=== PATIENT | female | born 1950 | race Caucasian/White ===

== ENCOUNTER 2017-04-06 07:29 | Day surgery (SDC) | payer MEDICARE ==
[2017-04-03 11:10] VITALS: BMI 26.6
[2017-04-06 07:45] LABS: BASO % 1.7 % (0-2.0); EOS % 3.9 % (0-4.5); HEMATOCRIT 36.9 % (32.4-45.2); HEMOGLOBIN 12.4 GM/dL (10.7-15.3); LYMPH % 42.6 % (8-40); MCH 27.6 pg (25.7-33.7); MCHC 33.4 g/dl (32.0-36.0); MEAN CELL VOLUME 82.6 fl (80-96); MEAN PLT VOLUME 7.3 fl (7.5-11.1); MONO % 8.5 % (3.8-10.2); NEUT % 43.3 % (42.8-82.8); PLATELET COUNT 260 K/MM3 (134-434); RBC 4.47 M/mm3 (3.60-5.2); RDW 13.4 % (11.6-15.6); WHITE BLOOD COUNT 5.4 K/mm3 (4.0-10.0)
[2017-04-06 08:01] LABS: INR 1.01 (0.82-1.09); PROTHROMBIN TIME (PATIENT) 11.4 SEC (9.98-11.88)
[2017-04-06 08:14] VITALS: TEMP 97
[2017-04-06 13:37] VITALS: PULSE 60
[2017-04-06 13:38] VITALS: BP 118/60
--- NOTE | 2017-04-08 15:09 | PATH ---
Surgical Pathology Report Patient Name: ROSALIO DICKERSON [facility]. Rec. #: [id number] /Age/Gender: 1950 (Age: 67) / F Account: [id number] Location: Taken: 04/06/2017 Received: 04/06/2017 Reported: 04/08/2017 Physicians: Tez Russ MD Michael Tom, M.D. Specimen(s) Received LEFT NECK MASS Clinical History 67-year-old female with left supraclavicular palpable hard mass. CT and MRI showing ill-defined process of unclear etiology Final Diagnosis NECK, SUPRACLAVICULAR, LEFT, MASS, BIOPSY: ADENOCARCINOMA. SEE COMMENT. Comment: Immunohistochemical stains performed and interpreted at [facility] show the tumor is positive for cytokeratin AE1/3 and CK7, while negative for CK20 and TTF-1. Immunohistochemical stains performed at [place], [place] ([id number]) and interpreted at [facility] show the tumor is positive for ARABELLA-3 and GCDFP-15, while negative for Napsin-A and Odessa-8. Concurrent flow cytometry performed and interpreted at [place], [place] ([id number]) shows Paucicellular limited study. The low number of cells in the sample precludes full marker panel, which limit the interpretation. See Emerge report for details. It is noted that the patient has breast mass seen in recent mammography. Overall, the immunophenotype favors breast origin. Suggest clinical/radiologic correlation. Findings discussed with Dr. Zamora. Electronically Signed Page Caputo M.D. Addendum Reported: 05/01/2017 Addendum Diagnosis Results of Estrogen Receptor (ER) and Progesterone Receptor (AZ) studies performed on block "1" at [facility] at the request of Dr. Meza are as follows: ER (clone 6F11 mouse monoclonal antibody by Leica): Few cells are positive with weak to moderate nuclear staining (Positive). AZ (clone16 mouse monoclonal antibody by Leica): No nuclear staining (Negative). Comment: Her2 (IHC) immunohistochemical stain is not performed due to insufficient lesional material on deeper levels. Page Caputo M.D. Gross Description Received in formalin labeled "left neck mass," are 2 austin, cylindrical portions of soft tissue measuring 0.4 and 1.1 cm in length and averaging 0.1 cm in diameter. The specimens are submitted in toto in one cassette. 04/06/201704/06/2017
== END 2017-04-06 13:41 | disposition home or self-care (01) ==
LOC: JRADIR 07:29
PROVIDERS: ATTEND Otolaryngology
PROC: 0JB53ZX Excision of Left Neck Subcutaneous Tissue and Fascia, Percutaneous Approach, Diagnostic (ICD-10-PCS; principal; 2017-04-06)
DX: C49.0 Malignant neoplasm of connective and soft tissue of head, face and neck (principal)
CPT/HCPCS: 36415; 71010-TC; 76942-TC; 85025; 85610; 88305-TC; 88341-TC; 88342-TC

== ENCOUNTER → 2017-04-16 | Day surgery (SDC) | payer MEDICARE ==
--- NOTE | 2017-04-21 15:22 | PATH ---
Surgical Pathology Report Patient Name: ROSALIO DICKERSON [facility]. Rec. #: [id number] /Age/Gender: 1950 (Age: 67) / F Account: [id number] Location: [facility] Taken: 04/16/2017 Received: 04/16/2017 Reported: 04/21/2017 Physicians: Tez Hanley MD Michael Tom, M.D. Specimen(s) Received A: LEFT BREAST SPECIMEN - SITE 1 - ANTERIOR WITH CALCIFICATIONS B: LEFT BREAST SPECIMEN - SITE 1 - ANTERIOR WITHOUT CALCIFICATIONS C: LEFT BREAST SPECIMEN - SITE 2 - POSTERIOR WITH CALCIFICATIONS D: LEFT BREAST SPECIMEN - SITE 2 - POSTERIOR WITHOUT CALCIFICATIONS Clinical History Nonpalpable lesion Mammographic findings: Microcalcification, suspicious 2 sites= Site 1- anterior; site 2-posterior Final Diagnosis A. LEFT BREAST, SITE 1 ANTERIOR WITH CALCIFICATION, STEREOTACTIC NEEDLE CORE BIOPSY: FOCAL DUCTAL CARCINOMA IN SITU (DCIS), INTERMEDIATE NUCLEAR GRADE, SOLID PATTERN. MICROCALCIFICATIONS ARE IDENTIFIED. Results of Estrogen Receptor (ER) and Progesterone Receptor (MD) studies performed at [facility] are as follows: ER (clone 6F11 mouse monoclonal antibody by Leica): 100% nuclear staining with strong intensity (Positive). MD (clone16 mouse monoclonal antibody by Leica): 0% nuclear staining (Negative). B. LEFT BREAST, SITE 1 ANTERIOR WITHOUT CALCIFICATION, STEREOTACTIC NEEDLE CORE BIOPSY: BENIGN BREAST TISSUE WITH FOCAL HYALINIZED STROMAL NODULE. NO CARCINOMA IDENTIFIED. C. LEFT BREAST, SITE 2 POSTERIOR WITH CALCIFICATION, STEREOTACTIC NEEDLE CORE BIOPSY: DUCTAL CARCINOMA IN SITU (DCIS), INTERMEDIATE NUCLEAR GRADE, SOLID PATTERN WITH CENTRAL NECROSIS AND ASSOCIATED CALCIFICATION. Results of Estrogen Receptor (ER) and Progesterone Receptor (MD) studies performed at [facility] are as follows: ER (clone 6F11 mouse monoclonal antibody by Leica): 100% nuclear staining with strong intensity (Positive). MD (clone16 mouse monoclonal antibody by Leica): 0% nuclear staining (Negative). D. LEFT BREAST, SITE 2 POSTERIOR WITHOUT CALCIFICATION, STEREOTACTIC NEEDLE CORE BIOPSY: DUCTAL CARCINOMA IN SITU (DCIS), INTERMEDIATE NUCLEAR GRADE, SOLID PATTERN WITH CENTRAL NECROSIS AND ASSOCIATED CALCIFICATION. FOCAL FOREIGN BODY REACTION PRESENT. Comment: Immunohistochemical stains for p63 and smooth muscle minus heavy chain on Specimen C show preservation of the myoepithelial cell layer, consistent with ductal carcinoma in situ. Also see prior specimen [id number]. Positive and negative controls (internal if applicable) showed appropriate results. Formalin fixation and cold ischemic times are within current ASCO/CAP recommendations for ER, MD and Her2 testing. Electronically Signed Lupillo Dorman M.D. Gross Description A. Received in formalin labeled "site 1 anterior left breast with calcifications," is a 2.4 x 2.0 x 0.3 cm aggregate of austin-yellow, irregular to cylindrical portions of fibroadipose tissue. The formalin is filtered and the specimen is entirely submitted in one cassette. B. Received in formalin labeled "site 1 anterior left breast without calcifications," is a 1.7 x 1.5 x 0.3 cm aggregate of austin-yellow, irregular to cylindrical portions of fibroadipose tissue. The formalin is filtered and the specimen is entirely submitted in one cassette. C. Received in formalin labeled "site 2 posterior left breast with calcifications," is a 2.5 x 2.3 x 0.3 cm aggregate of multiple austin-yellow, irregular to cylindrical portions of fibroadipose tissue. The formalin is filtered and the specimen is entirely submitted in one cassette. D. Received in formalin labeled "site 2 posterior left breast without calcifications," is a 1.8 x 1.5 x 0.3 cm aggregate of multiple austin-yellow, irregular to cylindrical portions of fibroadipose tissue. The formalin is filtered and the specimen is entirely submitted in one cassette. Time to formalin fixation: 5 minutes Total formalin fixation time: Approximately 30 hours. 04/17/2017 saudi04/17/2017
== END | disposition home or self-care (01) ==
LOC: FMAMMOTONE 11:15
PROVIDERS: ATTEND Internal Medicine
PROC: 0HBU3ZX Excision of Left Breast, Percutaneous Approach, Diagnostic (ICD-10-PCS; principal; 2017-04-16)
DX: D05.12 Intraductal carcinoma in situ of left breast (principal); R92.1 Mammographic calcification found on diagnostic imaging of breast; N64.1 Fat necrosis of breast; N64.9 Disorder of breast, unspecified
CPT/HCPCS: 19081; 19082; 87899; 88305-TC; 88341-TC; 88342-TC; A4648

== ENCOUNTER 2017-05-14 10:27 | Day surgery (SDC) | payer MEDICARE ==
[2017-05-13 15:58] VITALS: BMI 23.1
--- NOTE | 2017-05-13 16:25 | HP ---
Admitting History and Physical - Primary Care Physician PCP: Vincent Meza - Admission Chief Complaint: Left breast DCIS and metastatic disease History of Present Illness: 67 year old with strong family H/O breast and pancreatic cancer. The patient came from [place] and had some tightness in her left axillary region and was found to have a left suprclavicular mass and underwent a core biopsy showing adeno carcinoma favoring breast origin. mammogram showed suspicious calcifications lower aspect of left breast and stereotactic core bx showed DCIS. ER= [place]-. CT scan of chest and neck showed suspicious adenopathy from the suprclavicular region to axilla. Pet CT scan showed metastatic dz and MRI braxhial plexus was ordered also showing ed dz in clavical area and swelling. She needs chemotherapy and will have supraclavicular node biopsied. History Source: Patient Limitations to Obtaining History: No Limitations - Past Medical History Cardiovascular: Yes: HTN Gastrointestinal: Yes: GERD Psych: Yes: Anxiety - Past Surgical History Past Surgical History: Yes: Hysterectomy (benign dz at 47) Additional Past Surgical History: Left breast suprclavicular lymph node adenocarcinoma - Smoking History Smoking history: Never smoked - Alcohol/Substance Use Hx Alcohol Use: No Home Medications - Allergies Allergies/Adverse Reactions: Allergies Allergy/AdvReac Type Severity Reaction Status Date / Time No Known Drug Allergies Allergy Verified 05/13/17 15:58 - Home Medications Home Medications: Ambulatory Orders Lisinopril [Prinivil] 10 mg PO DAILY 04/03/17 Omeprazole 40 mg PO DAILY 04/03/17 Metoprolol Succinate [Toprol Xl -] 25 mg PO DAILY 04/06/17 Family Disease History - Family Disease History Family Disease History: CA: Brother (CRC 65), Sister (pancreatic ca 64) Other Family History: neice breast ca 38 Physical Examination Constitutional: Yes: Well Nourished Breast(s): Yes: Other (D cup breasts ptotic bruising over left breast bx areas with typical scarring no palpable masses right breast negative firm hard left axillary nodes felt high up and firm left supraclavicular nodes right axilla and supraclavicular nodes negative.) Problem List - Problems (1) Breast cancer, left breast Code(s): C50.912 - MALIGNANT NEOPLASM OF UNSPECIFIED SITE OF LEFT FEMALE BREAST Qualifiers: Breast location: lower inner quadrant of breast Patient sex: female Assessment/Plan Life port insertion for chemotherapy
[2017-05-14] MEDS ORDERED: PROPOFOL 20 ML ONE ×2 (10:42→14:26)
[2017-05-14] MEDS ORDERED: MIDAZOLAM HCL 2 MG/2 ML SINGLE DOSE VIAL ONE ×2 (10:42→14:26)
[2017-05-14] MEDS ORDERED: PROMETHAZINE HCL 25 MG/1 ML VIAL IVPB PRN (14:09)
[2017-05-14] MEDS ORDERED: ONDANSETRON 4 MG/2 ML VIAL IVPUSH PRN ×2 (14:09→16:05)
[2017-05-14] MEDS ORDERED: LACTATED RINGERS SOLUTION 1,000 ML IV SCH (14:15)
[2017-05-14] MEDS ORDERED: LIDOCAINE HCL 1%, 10 MG/ML (20ML VIAL) ONE (14:22)
[2017-05-14] MEDS ORDERED: ceFAZolin SODIUM 1 GM VIAL ONE (14:27)
[2017-05-14] MEDS ORDERED: SODIUM CHLORIDE 0.9% P/F 10 ML VIAL IJ ONE (14:27)
[2017-05-14] MEDS ORDERED: LIDOCAINE HCL/PF 2% SDV 5ML VIAL ONE (14:50)
[2017-05-14] MEDS ORDERED: LIDOCAINE HCL 1%, 10 MG/ML (20ML VIAL) INF ONE (15:02)
[2017-05-14] MEDS ORDERED: KETOROLAC TROMETHAMINE 30 MG/1 ML VIAL IVPUSH PRN (16:05)
[2017-05-14] MEDS ORDERED: DEXTROSE 5%-0.45% SALINE 1,000 ML IV SCH (16:15)
[2017-05-14 17:37] VITALS: TEMP 98.2
[2017-05-14 18:44] VITALS: BP 116/64; PULSE 75
--- NOTE | 2017-05-14 23:01 | OP ---
DATE OF OPERATION: 05/14/2017 PREOPERATIVE DIAGNOSIS: Metastatic breast cancer. POSTOPERATIVE DIAGNOSIS: Metastatic breast cancer. PROCEDURE: Right single lumen Port-A-Cath placement using the Seldinger technique with fluoroscopy. ANESTHESIA: Local with IV sedation. SURGEON: Tor Meza M.D. PALS SPECIALIST: Quoc Machuca COMPLICATIONS: There were no complications. Briefly, the patient is a 67-year-old G4, P4 postmenopausal female of Citizen [place] descent. She presented with some left axillary tightness, decreased range of motion of her left arm. She was found to have a positive supraclavicular node which was biopsied showing adenocarcinoma. Workup showed significant adenopathy in supraclavicular region, some calcifications in the left breast, and she had those biopsied showing DCIS. There were no significant breast findings however, and breast MRI did not show any significant cancer in the left breast. She underwent a PET CT scan showing metastatic cancer in multiple bony segments. On further workup of the tumor, it was felt to be a breast cancer with an occult primary with significant metastatic disease. She was seen by the medical oncologist and chemotherapy was recommended. She was brought in for Port-A-Cath placement. The patient was brought in on May 14, 2017 for Port-A-Cath placement and in the holding area site verification was made, informed consent was obtained. She was brought into the operating room, laid on the OR table in a supine position. The right arm was tucked in her side with a rolled sheath placed under her midline spine. The upper right chest wall and neck were sterilely prepped and draped in usual fashion. She was given IV sedation. 1% lidocaine was given directly underneath the right clavicle and the right subclavian vein was cannulated under ultrasound guidance without difficulty. We did use the microwire to obtain access into the subclavian vein, and this was dilated with the placed into the superior vena cava under fluoroscopy. This was clipped to the drape. The infraclavicular pocket was then fashioned after giving more 1% lidocaine in the upper right chest wall, making a 3-cm incision and forming the infraclavicular pocket using electrocautery for hemostasis. The Port-A-Cath catheter was cut the appropriate length and attached to the chamber, which was placed in infraclavicular pocket and secured in place using 2 separate 2-0 Prolene sutures. At this point the dilator was placed over the wire with the tearaway introducer under fluoroscopy without difficulty. The wire was removed, and the catheter was placed down to the tearaway sheath, and the tearaway sheath was torn away leaving the catheter in good position in the superior vena cava. There was excellent blood return from the Port-A-Cath chamber, and it was flushed with heparin. The wound was then closed using interrupted 3-0 deep dermal Vicryl suture and a running 4-0 subcuticular Biosyn suture. Mastisol and Steri-Strips were applied over the wound. Using the Bassett needle, the Port-A-Cath chamber was accessed with good blood return, and about 1.5 mL of concentrated heparin at 1000 units per mL was instilled into the Port-A-Cath chamber. The patient was awake and alert at the end of the procedure, brought back to the postanesthesia care unit in stable condition. We will have a chest x-ray performed at the end of the case and if the line is in good position with no pneumo or hemothorax she will be discharged home the same day and the catheter may be used as soon as needed. All sponge and needle counts were correct at the end of the case, and estimated blood loss was minimal. TOR MEZA M.D. [id number]
== END 2017-05-14 18:00 | disposition home or self-care (01) ==
LOC: JASU-SURG 10:27 → MERGE 12:00 → JASU-SURG 18:00
PROVIDERS: ATTEND Surgery Surgical Oncology
PROC: 02HV33Z Insertion of Infusion Device into Superior Vena Cava, Percutaneous Approach (ICD-10-PCS; 2017-05-14)
PROC: B548ZZA Ultrasonography of Superior Vena Cava, Guidance (ICD-10-PCS; 2017-05-14)
PROC: 0JH63XZ Insertion of Tunneled Vascular Access Device into Chest Subcutaneous Tissue and Fascia, Percutaneous Approach (ICD-10-PCS; principal; 2017-05-14 12:00)
DX: C50.919 Malignant neoplasm of unspecified site of unspecified female breast (principal); C77.9 Secondary and unspecified malignant neoplasm of lymph node, unspecified; C79.51 Secondary malignant neoplasm of bone
CPT/HCPCS: 36561; 77001; C1751; 71045-TC; 76000-TC; 94760; J1644

== ENCOUNTER 2017-05-19 09:39 | Day surgery (SDC) | payer MEDICARE ==
[2017-05-18 09:14] VITALS: BMI 23.1
[2017-05-19 10:05] LABS: BASO % 1.3 % (0-2.0); EOS % 3.5 % (0-4.5); HEMOGLOBIN 12.7 GM/dL (10.7-15.3); MCH 27.1 pg (25.7-33.7); MCHC 32.6 g/dl (32.0-36.0); MEAN CELL VOLUME 83.2 fl (80-96); MEAN PLT VOLUME 7.6 fl (7.5-11.1); MONO % 7.3 % (3.8-10.2); NEUT % 54.9 % (42.8-82.8); PLATELET COUNT 253 K/MM3 (134-434); RBC 4.68 M/mm3 (3.60-5.2); RDW 13.1 % (11.6-15.6); WHITE BLOOD COUNT 7.3 K/mm3 (4.0-10.0)
[2017-05-19 10:13] VITALS: TEMP 97.7
[2017-05-19 10:15] LABS: PROTHROMBIN TIME (PATIENT) 11.3 SEC (9.98-11.88)
[2017-05-19] MEDS ORDERED: oxyCODONE HCL 5 MG TABLET ONE (13:14)
[2017-05-19] MEDS ORDERED: ACETAMINOPHEN 325 MG TABLET (FP) ONE (13:14)
[2017-05-19] MEDS ORDERED: oxyCODONE HCL 5 MG TABLET PO ONE (13:15)
[2017-05-19] MEDS ORDERED: ACETAMINOPHEN 325 MG TABLET (FP) PO ONE (13:15)
[2017-05-19 14:41] VITALS: BP 130/70; PULSE 70
--- NOTE | 2017-05-20 12:39 | PATH ---
Surgical Pathology Report Patient Name: ROSALIO FERNANDEZ [facility]. Rec. #: [id number] /Age/Gender: 1950 (Age: 67) / F Account: [id number] Location: Taken: 05/19/2017 Received: 05/19/2017 Reported: 05/20/2017 Physicians: Shahzad Taveras M.D. Shay Galvan M.D. Specimen(s) Received LEFT SUPRACLAVICULAR Clinical History 67 year old female with metastatic breast cancer Final Diagnosis SUPRACLAVICULAR, LEFT, MASS, EXCISION: INVASIVE ADENOCARCINOMA, WELL TO MODERATELY DIFFERENTIATED. SEE COMMENT. Comment: Her2/Catrachito studies pending and will be reported as an addendum. Carcinoma is morphologically similar to prior material ([id number]). Electronically Signed Page Caputo M.D. Addendum Reported: 05/21/2017 Addendum Diagnosis Results of Her2 (IHC) study performed on block "1 " at [place], [place] ([id number]) are as follows: Her2 IHC (EP3 from [employer], formerly known as [id number], using Liu Polymer Refine detection kit): 0 (Negative). Positive and negative controls (internal if applicable) show appropriate results. Formalin fixation and cold ischemic times are within current ASCO/CAP recommendations for ER, [place] and Her2 testing. Page Caputo M.D. Gross Description Received in formalin labeled "left," and indicated on the requisition to be from the left supraclavicular region, are 3 austin-yellow, cylindrical portions of fibroadipose tissue ranging from 1.0-1.7 cm in length and averaging 0.1 cm in diameter. The specimens are submitted in toto in one cassette. Total formalin fixation time: Between 6-10 hours 05/19/201705/19/2017
== END 2017-05-19 14:30 | disposition home or self-care (01) ==
LOC: JRADIR 09:39
PROVIDERS: ATTEND Internal Medicine Hematology & Oncology
PROC: 07D23ZX Extraction of Left Neck Lymphatic, Percutaneous Approach, Diagnostic (ICD-10-PCS; principal; 2017-05-19)
DX: C79.89 Secondary malignant neoplasm of other specified sites (principal); C50.919 Malignant neoplasm of unspecified site of unspecified female breast
CPT/HCPCS: 36415; 38505; 76942-TC; 85025; 85610; 88305-TC

== ENCOUNTER 2017-05-20 07:18 | Day surgery (SDC) | payer MEDICARE ==
[2017-05-20] MEDS ORDERED: DEXAMETHASONE INJECTION 20 MG, RANITIDINE INJECTION 50 MG, DIPHENHYDRAMINE 50 MG in SOD... IVPB ONE (08:00)
[2017-05-20] MEDS ORDERED: PALONOSETRON HCL 0.25 MG/5 ML VIAL IVPUSH ONE (08:00)
[2017-05-20] MEDS ORDERED: PACLITAXEL 138 MG in SODIUM CHLORIDE 250 ML IVPB ONE (08:30)
[2017-05-20 10:14] LABS: BASO % 0.3 % (0-2.0); LYMPH % 9.9 % (8-40); MCH 27.7 pg (25.7-33.7); MCHC 33.5 g/dl (32.0-36.0); MEAN CELL VOLUME 82.8 fl (80-96); MEAN PLT VOLUME 7.7 fl (7.5-11.1); NEUT % 88.8 % (42.8-82.8); PLATELET COUNT 262 K/MM3 (134-434); RBC 4.71 M/mm3 (3.60-5.2)
[2017-05-20 11:34] LABS: ALBUMIN 4.2 g/dl (3.4-5.0); ANION GAP 11 (8-16); BILIRUBIN,DIRECT 0.2 mg/dL (0.0-0.2); BILIRUBIN,TOTAL 0.7 mg/dL (0.2-1.0); BLOOD UREA NITROGEN 14 mg/dL (7-18); CALCIUM 9.8 mg/dL (8.5-10.1); CHLORIDE 100 mmol/L (98-107); CO2 26 mmol/L (21-32); GLUCOSE,RANDOM 122 mg/dL (74-106); SGOT/AST 15 U/L (15-37); SGPT/ALT 24 U/L (12-78); SODIUM 137 mmol/L (136-145); TOT PROT 8.2 g/dl (6.4-8.2)
[2017-05-20 11:35] LABS: ALK PHOS 136 U/L (45-117)
[2017-05-20] MEDS ORDERED: PORTA CATH FLUSH 10 ML IVPUSH ONE (13:22)
[2017-05-20 13:23] VITALS: TEMP 98.3
[2017-05-20 17:59] VITALS: BP 113/64; PULSE 81
== END 2017-05-20 14:10 | disposition home or self-care (01) ==
LOC: JONCCHEMO 07:18 → J7W 11:14 → JONCCHEMO 14:10
PROVIDERS: ATTEND Internal Medicine Hematology & Oncology
DX: Z51.11 Encounter for antineoplastic chemotherapy (principal); C50.919 Malignant neoplasm of unspecified site of unspecified female breast; C77.9 Secondary and unspecified malignant neoplasm of lymph node, unspecified; C79.51 Secondary malignant neoplasm of bone
CPT/HCPCS: 36415; 80053; 80076; 82378; 83735; 85025; 86300; 96367; 96375; 96413; J1100; J2469

== ENCOUNTER 2017-05-27 07:19 | Day surgery (SDC) | payer MEDICARE ==
[2017-05-27] MEDS ORDERED: PALONOSETRON HCL 0.25 MG/5 ML VIAL IVPUSH ONE (08:00)
[2017-05-27] MEDS ORDERED: DEXAMETHASONE INJECTION 20 MG, DIPHENHYDRAMINE 50 MG, RANITIDINE INJECTION 50 MG in SOD... IVPB ONE (08:00)
[2017-05-27] MEDS ORDERED: PACLITAXEL 138 MG in SODIUM CHLORIDE 250 ML IVPB ONE (08:30)
[2017-05-27 09:27] LABS: BASO % 0.6 % (0-2.0); EOS % 0.2 % (0-4.5); HEMATOCRIT 36.5 % (32.4-45.2); HEMOGLOBIN 12.3 GM/dL (10.7-15.3); MCH 27.8 pg (25.7-33.7); MCHC 33.6 g/dl (32.0-36.0); MEAN CELL VOLUME 82.9 fl (80-96); MEAN PLT VOLUME 7.8 fl (7.5-11.1); MONO % 0.8 % (3.8-10.2); NEUT % 78.4 % (42.8-82.8); PLATELET COUNT 265 K/MM3 (134-434); RDW 12.9 % (11.6-15.6); WHITE BLOOD COUNT 3.8 K/mm3 (4.0-10.0)
[2017-05-27 09:43] LABS: CHLORIDE 99 mmol/L (98-107); POTASSIUM 4.6 mmol/L (3.5-5.1); SODIUM 134 mmol/L (136-145)
[2017-05-27 09:51] LABS: ALBUMIN 4.1 g/dl (3.4-5.0); ALK PHOS 142 U/L (45-117); ANION GAP 9 (8-16); BILIRUBIN,DIRECT < 0.2 mg/dL (0.0-0.2); BILIRUBIN,TOTAL 0.7 mg/dL (0.2-1.0); BLOOD UREA NITROGEN 19 mg/dL (7-18); CO2 26 mmol/L (21-32); CREATININE 0.9 mg/dL (0.55-1.02); GLUCOSE,RANDOM 209 mg/dL (74-106); SGOT/AST 14 U/L (15-37); SGPT/ALT 33 U/L (12-78); TOT PROT 7.5 g/dl (6.4-8.2)
[2017-05-27 12:01] VITALS: TEMP 97.6
[2017-05-27 12:25] VITALS: BP 123/69
[2017-05-27] MEDS ORDERED: PORTA CATH FLUSH 10 ML IVPUSH ONE (12:29)
[2017-05-27 12:39] VITALS: PULSE 74
== END 2017-05-27 11:50 | disposition home or self-care (01) ==
LOC: JONCCHEMO 07:19 → J7W 09:30 → JONCCHEMO 11:50
PROVIDERS: ATTEND Internal Medicine Hematology & Oncology
DX: Z51.11 Encounter for antineoplastic chemotherapy (principal); C50.919 Malignant neoplasm of unspecified site of unspecified female breast; C77.9 Secondary and unspecified malignant neoplasm of lymph node, unspecified; C79.51 Secondary malignant neoplasm of bone
CPT/HCPCS: 36415; 80053; 80076; 82378; 85025; 96367; 96375; 96413; J1100; J2469

== ENCOUNTER 2017-05-30 09:05 | Emergency (ER) | payer MEDICARE ==
[2017-05-30 09:14] VITALS: BMI 24.9
--- NOTE | 2017-05-30 09:21 | PDOC ---
History of Present Illness - General Chief Complaint: Respiratory Stated Complaint: FEVER Time Seen by Provider: 05/30/17 09:17 - History of Present Illness Initial Comments: 05/30/17 09:39 67 y.o. female with a PMH of L sided Breast CA (2nd chemotherapy treatment on ) with supraclavicular metasasis presents to our ED today c/o 2 day h/o fever (T max 103 2 days previous) and a fever of 100.6 today. Patient has been taking Motrin for her fevers. Patient notes daughter @ home has a cough without fever. Patient additional c/o of L sided clavicular pain with L arm parathesia and L chest wall numbness following supraclavicular lymph node biopsy 2 weeks previous. Patient denies any associated nausea/vomiting, constipation/diarrhea, dyuria/ hematuria. NKDA Surgical: L supraclavicular node biopsy Social: denies nicotine, denies alcohol, denies recreational drugs Medications: Lisinopril, Metoprolol, Alaprolazam, Gabapentin, Dexamethasone Past History - Past Medical History Allergies/Adverse Reactions: Allergies Allergy/AdvReac Type Severity Reaction Status Date / Time No Known Drug Allergies Allergy Verified 05/30/17 09:10 Home Medications: Ambulatory Orders Alprazolam [Xanax] 1 mg PO TID 05/30/17 Dexamethasone 4 mg PO ASDIR 05/30/17 Gabapentin 100 mg PO TID 05/30/17 Lisinopril/Hydrochlorothiazide [Lisinopril-Hctz 10-12.5 mg Tab] 1 each PO DAILY 05/30/17 Metoprolol Succinate [Toprol Xl] 25 mg PO DAILY 05/30/17 Oseltamivir Phosphate [Tamiflu -] 75 mg PO BID #10 capsule 05/30/17 Tramadol HCl 50 mg PO Q6H 05/30/17 Anemia: No Asthma: No Cancer: Yes (breast cancer left 2 weeks ago) Cardiac Disorders: No CVA: No COPD: No CHF: No Dementia: No Diabetes: No GI Disorders: No Disorders: No HTN: Yes Hypercholesterolemia: No Liver Disease: No Seizures: No Thyroid Disease: No Other medical history: on chemo for breast ca - Surgical History Abdominal Surgery: Yes Appendectomy: No Cardiac Surgery: No Cholecystectomy: No Lung Surgery: No Neurologic Surgery: No Orthopedic Surgery: No - Suicide/Smoking/Psychosocial Hx Smoking History: Never smoked Hx Alcohol Use: No Drug/Substance Use Hx: No Substance Use Type: None Hx Substance Use Treatment: No Review of Systems - Review of Systems Constitutional: Yes: Chills, Fever HEENTM: No: Recent change in vision Respiratory: No: Cough, Shortness of Breath Cardiac (ROS): No: Chest Pain ABD/GI: Yes: Constipated. No: Diarrhea, Nausea, Vomiting *Physical Exam - Vital Signs Last Vital Signs Temp Pulse Resp BP Pulse Ox 98.5 F 69 18 125/71 99 05/30/17 09:06 05/30/17 09:06 05/30/17 09:06 05/30/17 09:06 05/30/17 09:06 - Physical Exam General Appearance: Yes: Nourished, Appropriately Dressed HEENT: positive: EOMI, HAZEL. negative: TM Bulging, TM Dull, TM Erythema Neck: positive: Trachea midline, Supple Respiratory/Chest: positive: Lungs Clear Cardiovascular: positive: S1, S2. negative: Edema, JVD Gastrointestinal/Abdominal: positive: Normal Bowel Sounds, Soft. negative: Guarding, Rebound, Tenderness, Hernia, Mass ED Treatment Course - LABORATORY CBC & Chemistry Diagram: 05/30/17 09:30 05/30/17 09:30 Medical Decision Making - Medical Decision Making 05/30/17 12:43 Patient is a 67 y.o female with a PMH of Breast CA (currently on chemotherapy) w /supraclavicular mets who presents to our ED c/o fever. Initial DDx for neutropenic fever, Influenza vs. Will draw blood cultures, CXR, CBC/CMP, UA/ UC as well as LUE U/S as patient c/o parthesias, h/o recent surgical intervention. 05/30/17 12:51 CBC negative for leukocytosis, ANC 3.2 K --> suspect viral etiology for fever. CXR negative for new infiltrate/consolidation. Influenza Swab not available, given patient's immunocompromised status, will prophylatically treat for Influenza. Case d/w Dr. Rodriguez (ID) agrees with treatment plan. Oncology @ bedside agrees patient stable for discharge home. 05/30/17 14:04 U/S LUE negative for clot. Patient remains afebrile. Patient and patient's family @ bedside cousneled extensively on post discharge care, return precautions and improtance of PMD follow-up *DC/Admit/Observation/Transfer Diagnosis at time of Disposition: Fever - Discharge Dispostion Disposition: HOME Condition at time of disposition: Good Admit: No - Prescriptions Prescriptions: Oseltamivir Phosphate [Tamiflu -] 75 mg PO BID #10 capsule - Referrals Referrals: Brayden Griffith MD [Primary Care Provider] - - Patient Instructions Printed Discharge Instructions: DI for Fever (Symptom) -- Adult Additional Instructions: You were evaluated today for a fever. All of your labs as well as your chest X- ray showed no concerning findings for an active infection. Infectious disease and oncology consults agree that you are safe to discharge home with close monitoring and return to the Emergency Department for any new/concerning/ worsening symptoms - Post Discharge Activity
--- NOTE | 2017-05-30 09:21 | PDOC ---
Attending Attestation - HPI HPI: 05/30/17 09:51 The patient is a 67 year old female with a significant past medical history of Left Breast CA (last chemo on 05/27/17) and HTN who presents to the ED with 2 weeks of clavicular pain and 2 days of fever. The patient reports left sided clavicular pain since she got her left supraclavicular node biopsied 2 weeks ago. Patient states her clavicular pain feel like pins and needles and radiates down her left arm and her left sided chest wall. She also reports left chest numbness, redness, and swelling associated with her clavicular pain. Patient notes she developed a fever 2 days ago. She states her last recorded fever was at 6 am this morning at 100.6 F and she took motrin with slight relief. Denies cough or shortness of breath. Denies dysuria or change in urinary output. Denies abdominal pain, nausea, vomiting, or diarrhea. Denies any other symptoms. Social hx: Denies smoking or alcohol consumption. Documentation prepared by Brittany Trent, acting as medical billing supervisor for Trisha Hidalgo MD <Brittany Trent - Last Filed: 05/30/17 09:51> - Resident Resident Name: Shalini Vargas - [facility] HPI: I, Dr. Trisha Hidalgo, attest that the scribes documentation that appears above has been prepared under my direction and personally reviewed by me. I confirmed that the note above accurately reflects all work, treatment, procedures, and medical decision-making performed by me. 05/30/17 10:13 05/30/17 10:14 - Physicial Exam PE: 05/30/17 09:55 VS: 98.5 69 18 b/p 125/77 N/C AT Nati Neck: supple no lymph nodes palpated Lung: + bs dolly cta Heart: s1S2 regular Abd: +Bs Abd soft non tender no guarding or tenderness Ext: no edema of extremities, pt with limited rom of left arm and shoulder Skin: slight swelling noted to Left chest wall no erythema noted neuro: alert and oriened x3, nl gait - Medical Decision Making 05/30/17 10:04 67 y/o female with h/o breast cancer recently started chemo, referred to ED by oncologist for probale admssion due to recent fever after receiving chemo two days ago. Pt is non toxic appearing not in distress at present Plan: CBC,CMP, Lactic acid, cxr, blood cx, cx from port, ua urine cx,and reevaluate 05/30/17 10:13 <Trisha Hidalgo - Last Filed: 05/30/17 10:15>
[2017-05-30] MEDS ORDERED: VANCOMYCIN 1,000 MG in DEXTROSE 5%-WATER - 250 ML IVPB ONE (09:43)
[2017-05-30] MEDS ORDERED: CEFEPIME HCL 1 GM VIAL (RESTRICTED TO ID) IVPB ONE (09:44)
[2017-05-30 09:46] LABS: BASO % 0.5 % (0-2.0); EOS % 0.9 % (0-4.5); HEMATOCRIT 36.1 % (32.4-45.2); HEMOGLOBIN 12.4 GM/dL (10.7-15.3); LYMPH % 16.7 % (8-40); MCHC 34.3 g/dl (32.0-36.0); MEAN CELL VOLUME 81.6 fl (80-96); MONO % 1.7 % (3.8-10.2); NEUT % 80.2 % (42.8-82.8); PLATELET COUNT 243 K/MM3 (134-434); RBC 4.42 M/mm3 (3.60-5.2); RDW 12.7 % (11.6-15.6)
[2017-05-30] MEDS ORDERED: VANCOMYCIN 1 GRAM (PRE-DOCKED) 1,000 MG/250 ML BAG IVPB ONE (09:59)
[2017-05-30] MEDS ORDERED: CEFEPIME 1 GM/100 ML BAG IVPB ONE (10:00)
[2017-05-30 10:18] LABS: ALBUMIN 4.2 g/dl (3.4-5.0); ANION GAP 7 (8-16); BILIRUBIN,TOTAL 1.8 mg/dL (0.2-1.0); BLOOD UREA NITROGEN 16 mg/dL (7-18); CALCIUM 9.3 mg/dL (8.5-10.1); CHLORIDE 94 mmol/L (98-107); CO2 30 mmol/L (21-32); GLUCOSE,RANDOM 111 mg/dL (74-106); POTASSIUM 4.8 mmol/L (3.5-5.1); SGOT/AST 27 U/L (15-37); SGPT/ALT 49 U/L (12-78); SODIUM 131 mmol/L (136-145); TOT PROT 7.5 g/dl (6.4-8.2)
[2017-05-30 10:19] LABS: ALK PHOS 151 U/L (45-117)
[2017-05-30 10:24] LABS: INR 0.98 (0.82-1.09); PROTHROMBIN TIME (PATIENT) 11.1 SEC (9.98-11.88)
[2017-05-30 10:26] LABS: ACTIVATED PTT 34.4 SECONDS (26.9-34.4)
[2017-05-30] MEDS ORDERED: OSELTAMIVIR PHOSPHATE 75 MG CAPSULE PO ONE (12:05)
[2017-05-30] MEDS ORDERED: OSELTAMIVIR PHOSPHATE 75 MG CAPSULE ONE (12:12)
[2017-05-30 13:20] VITALS: BP 111/55; PULSE 87
[2017-05-30 13:52] VITALS: TEMP 99.3
--- NOTE | 2017-05-30 16:06 | EKG ---
Test Reason : Blood Pressure : / mmHG Vent. Rate : 075 BPM Atrial Rate : 075 BPM P-R Int : 114 ms QRS Dur : 082 ms QT Int : 372 ms P-R-T Axes : 048 008 028 degrees QTc Int : 415 ms NORMAL SINUS RHYTHM NORMAL ECG NO PREVIOUS ECGS AVAILABLE Confirmed by MARTELL SALAZAR MD ([id number]) on 05/30/2017 4:05:21 PM Referred By: Confirmed By:MARTELL SALAZAR MD
--- NOTE | 2017-05-30 18:59 | CONSULT ---
Consult Consult Specialty:: Oncology Referred by:: ER Reason for Consultation:: Fever at home, recent chemotherapy. - History of Present Illness Chief Complaint: Fever History of Present Illness: Patient known to Oncology, recently started chemotherapy for metastatic breast cancer, experienced chills and found to have fever of 100.6 at home. Presented to ER for evalutaion. Presently without complaints. Reports some weakness since starting chemotherapy, but no acute symptomatology. - History Source History Provided By: Patient, Family Member Limitations to Obtaining History: No Limitations - Past Medical History Cardio/Vascular: Yes: HTN Gastrointestinal: Yes: GERD Psych: Yes: Anxiety - Past Surgical History Past Surgical History: Yes: Hysterectomy - Alcohol/Substance Use Hx Alcohol Use: No - Smoking History Smoking history: Never smoked Home Medications - Allergies Allergies/Adverse Reactions: Allergies Allergy/AdvReac Type Severity Reaction Status Date / Time No Known Drug Allergies Allergy Verified 05/30/17 09:10 - Home Medications Home Medications: Ambulatory Orders Alprazolam [Xanax] 1 mg PO TID 05/30/17 Dexamethasone 4 mg PO ASDIR 05/30/17 Gabapentin 100 mg PO TID 05/30/17 Lisinopril/Hydrochlorothiazide [Lisinopril-Hctz 10-12.5 mg Tab] 1 each PO DAILY 05/30/17 Metoprolol Succinate [Toprol Xl] 25 mg PO DAILY 05/30/17 Oseltamivir Phosphate [Tamiflu -] 75 mg PO BID #10 capsule 05/30/17 Tramadol HCl 50 mg PO Q6H 05/30/17 Family Disease History - Family Disease History Family Disease History: CA: Brother, Sister Review of Systems - Review of Systems Constitutional: reports: Chills Cardiovascular: denies: Chest Pain Respiratory: denies: Cough Gastrointestinal: denies: Abdominal Pain Genitourinary: denies: Dysuria Musculoskeletal: denies: Joint Pain, Muscle Pain Neurological: denies: Headache Physical Exam Vital Signs: Vital Signs Temperature 99.3 F 05/30/17 13:52 Pulse Rate 87 05/30/17 13:20 Respiratory Rate 17 05/30/17 13:20 Blood Pressure 111/55 05/30/17 13:20 O2 Sat by Pulse Oximetry (%) 100 05/30/17 13:20 Constitutional: Yes: Well Nourished, No Distress, Calm Cardiovascular: Yes: Regular Rate and Rhythm Respiratory: No: SOB Gastrointestinal: No: Distention Neurological: Yes: Alert, Oriented Psychiatric: Yes: Alert, Oriented Labs: CBC, BMP 05/30/17 09:30 05/30/17 09:30 Assessment/Plan Metastatic breast cancer, received chemotherapy 3 days ago (weekly Taxol), with report of fever at home. Currently afebrile and asymptomatic in the ER. ANC 3.2K. No concern of febrile neutropenia. Recommend ongoing observation at home. Possibly viral etiology. Low index of suspicion for influenza - empiric Tamiflu not warranted.
== END 2017-05-30 14:10 | disposition home or self-care (01) ==
LOC: JER 09:05
DX: R50.9 Fever, unspecified (principal); C50.912 Malignant neoplasm of unspecified site of left female breast; C79.51 Secondary malignant neoplasm of bone; I10 Essential (primary) hypertension; F41.9 Anxiety disorder, unspecified
CPT/HCPCS: 36415; 71046-TC-FY; 80053; 83605; 85025; 85610; 85730; 87040; 87086; 87804; 93005; 93010; 93971; 96365; 96375; 99284-25

== ENCOUNTER 2017-06-11 07:39 | Day surgery (SDC) | payer MEDICARE ==
[2017-06-11 08:47] LABS: HEMATOCRIT 34.3 % (32.4-45.2); HEMOGLOBIN 11.5 GM/dL (10.7-15.3); MCH 28.1 pg (25.7-33.7); MCHC 33.5 g/dl (32.0-36.0); MEAN CELL VOLUME 83.9 fl (80-96); MEAN PLT VOLUME 7.4 fl (7.5-11.1); PLATELET COUNT 310 K/MM3 (134-434); RBC 4.09 M/mm3 (3.60-5.2); RDW 13.5 % (11.6-15.6); WHITE BLOOD COUNT 8.3 K/mm3 (4.0-10.0)
[2017-06-11 09:24] LABS: ALBUMIN 3.7 g/dl (3.4-5.0); ALK PHOS 138 U/L (45-117); ANION GAP 13 (8-16); BILIRUBIN,DIRECT < 0.2 mg/dL (0.0-0.2); BILIRUBIN,TOTAL 0.4 mg/dL (0.2-1.0); BLOOD UREA NITROGEN 15 mg/dL (7-18); CALCIUM 9.4 mg/dL (8.5-10.1); CHLORIDE 100 mmol/L (98-107); CO2 25 mmol/L (21-32); GLUCOSE,RANDOM 222 mg/dL (74-106); MAGNESIUM 2.3 mg/dL (1.8-2.4); POTASSIUM 4.5 mmol/L (3.5-5.1); SGOT/AST 13 U/L (15-37); SGPT/ALT 31 U/L (12-78); SODIUM 138 mmol/L (136-145); TOT PROT 7.1 g/dl (6.4-8.2)
[2017-06-11 09:33] VITALS: BP 112/67; PULSE 76; TEMP 97.7
[2017-06-11] MEDS ORDERED: PORTA CATH FLUSH 10 ML IVPUSH ONE (09:33)
[2017-06-11] MEDS ORDERED: PALONOSETRON HCL 0.25 MG/5 ML VIAL IVPUSH ONE (10:00)
[2017-06-11] MEDS ORDERED: DEXAMETHASONE INJECTION 20 MG, DIPHENHYDRAMINE 50 MG, RANITIDINE INJECTION 50 MG in SOD... IVPB ONE (10:00)
[2017-06-11] MEDS ORDERED: PACLITAXEL 138 MG in SODIUM CHLORIDE 250 ML IVPB ONE (10:30)
[2017-06-11 11:04] LABS: ANISOCYTOSIS 0; MACROCYTOSIS 0; PLATELET ESTIMATE NORMAL
== END 2017-06-11 11:20 | disposition home or self-care (01) ==
LOC: JONCCHEMO 07:39 → J7W 09:12 → JONCCHEMO 11:20
PROVIDERS: ATTEND Internal Medicine Hematology & Oncology
DX: Z51.11 Encounter for antineoplastic chemotherapy (principal); C50.919 Malignant neoplasm of unspecified site of unspecified female breast; C77.9 Secondary and unspecified malignant neoplasm of lymph node, unspecified; C79.51 Secondary malignant neoplasm of bone
CPT/HCPCS: 36415; 80053; 80076; 83735; 85025; 96367; 96375; 96413; J1100; J2469

== ENCOUNTER 2017-06-17 07:37 | Day surgery (SDC) | payer MEDICARE ==
[2017-06-17 09:23] LABS: HEMATOCRIT 34.8 % (32.4-45.2); HEMOGLOBIN 11.4 GM/dL (10.7-15.3); MCH 27.7 pg (25.7-33.7); MCHC 32.8 g/dl (32.0-36.0); MEAN CELL VOLUME 84.5 fl (80-96); MEAN PLT VOLUME 8.1 fl (7.5-11.1); PLATELET COUNT 285 K/MM3 (134-434); RBC 4.12 M/mm3 (3.60-5.2); RDW 13.3 % (11.6-15.6)
[2017-06-17 10:00] LABS: ALK PHOS 137 U/L (45-117); ANION GAP 8 (8-16); BILIRUBIN,DIRECT < 0.2 mg/dL (0.0-0.2); BILIRUBIN,TOTAL 0.8 mg/dL (0.2-1.0); BLOOD UREA NITROGEN 18 mg/dL (7-18); CALCIUM 8.9 mg/dL (8.5-10.1); CHLORIDE 103 mmol/L (98-107); CO2 26 mmol/L (21-32); CREATININE 0.9 mg/dL (0.55-1.02); GLUCOSE,RANDOM 158 mg/dL (74-106); MAGNESIUM 2.2 mg/dL (1.8-2.4); POTASSIUM 4.8 mmol/L (3.5-5.1); SGOT/AST 13 U/L (15-37); SGPT/ALT 36 U/L (12-78); SODIUM 137 mmol/L (136-145); TOT PROT 7.4 g/dl (6.4-8.2)
[2017-06-17] MEDS ORDERED: ZOLEDRONIC ACID 4 MG in SODIUM CHLORIDE 100 ML IVPB ONE (10:00)
[2017-06-17 10:55] LABS: ACANTHOCYTES 0; ANISOCYTOSIS 0; HELMET CELLS 0; HOWELL-JOLLY BODIES 0; MACROCYTOSIS 0; OVALOCYTE 0; PLATELET ESTIMATE NORMAL; ROULEAU 0; SICKELED CELLS 0; TARGET CELLS 0; TEAR DROP CELLS 0; TOXIC GRANULATION 0
[2017-06-17] MEDS ORDERED: DEXAMETHASONE INJECTION 20 MG, DIPHENHYDRAMINE 50 MG, RANITIDINE INJECTION 50 MG in SOD... IVPB ONE (11:00)
[2017-06-17] MEDS ORDERED: PALONOSETRON HCL 0.25 MG/5 ML VIAL IVPUSH ONE (11:00)
[2017-06-17] MEDS ORDERED: PACLITAXEL 138 MG in SODIUM CHLORIDE 250 ML IVPB ONE (11:30)
[2017-06-17 16:39] VITALS: TEMP 98.3
[2017-06-17] MEDS ORDERED: PORTA CATH FLUSH 10 ML IVPUSH ONE (16:46)
[2017-06-17 16:47] VITALS: BP 127/73; PULSE 93
== END 2017-06-17 12:45 | disposition home or self-care (01) ==
LOC: JONCCHEMO 07:37 → J7W 10:05 → JONCCHEMO 12:45
PROVIDERS: ATTEND Internal Medicine Hematology & Oncology
PROC: 3E04305 Introduction of Other Antineoplastic into Central Vein, Percutaneous Approach (ICD-10-PCS; principal; 2017-06-17)
PROC: 3E043GC Introduction of Other Therapeutic Substance into Central Vein, Percutaneous Approach (ICD-10-PCS; 2017-06-17)
DX: Z51.11 Encounter for antineoplastic chemotherapy (principal); C50.919 Malignant neoplasm of unspecified site of unspecified female breast; C79.51 Secondary malignant neoplasm of bone
CPT/HCPCS: 36415; 80053; 80076; 83735; 85025; 96367; 96375; 96413; 96417; J1100; J2469; J3489

== ENCOUNTER 2017-06-23 07:28 | Day surgery (SDC) | payer MEDICARE ==
[2017-06-23] MEDS ORDERED: PALONOSETRON HCL 0.25 MG/5 ML VIAL IVPUSH ONE (10:00)
[2017-06-23] MEDS ORDERED: DEXAMETHASONE INJECTION 20 MG, DIPHENHYDRAMINE 50 MG, RANITIDINE INJECTION 50 MG in SOD... IVPB ONE (10:00)
[2017-06-23] MEDS ORDERED: PACLITAXEL 138 MG in SODIUM CHLORIDE 250 ML IVPB ONE (10:30)
[2017-06-23] MEDS ORDERED: ALTEPLASE 2 MG VIAL CVP SCH (13:30)
[2017-06-23] MEDS ORDERED: PORTA CATH FLUSH 10 ML IVPUSH ONE (18:00)
[2017-06-23 18:01] VITALS: BP 112/64; PULSE 82; TEMP 98.1
== END 2017-06-23 14:45 | disposition home or self-care (01) ==
LOC: JONCCHEMO 07:28
PROVIDERS: ATTEND Internal Medicine Hematology & Oncology
DX: Z51.11 Encounter for antineoplastic chemotherapy (principal); C50.919 Malignant neoplasm of unspecified site of unspecified female breast; C79.51 Secondary malignant neoplasm of bone
CPT/HCPCS: 96367; 96375; 96413; J1100; J2469; J2997

== ENCOUNTER 2017-07-01 07:18 | Day surgery (SDC) | payer MEDICARE ==
[2017-07-01 09:12] LABS: BASO % 1.3 % (0-2.0); EOS % 1.1 % (0-4.5); HEMATOCRIT 31.1 % (32.4-45.2); HEMOGLOBIN 10.8 GM/dL (10.7-15.3); LYMPH % 13.9 % (8-40); MCH 29.7 pg (25.7-33.7); MCHC 34.8 g/dl (32.0-36.0); MEAN CELL VOLUME 85.3 fl (80-96); MEAN PLT VOLUME 7.6 fl (7.5-11.1); MONO % 5.1 % (3.8-10.2); NEUT % 78.6 % (42.8-82.8); PLATELET COUNT 335 K/MM3 (134-434); RBC 3.64 M/mm3 (3.60-5.2); RDW 13.8 % (11.6-15.6); WHITE BLOOD COUNT 4.1 K/mm3 (4.0-10.0)
[2017-07-01 09:37] LABS: ALBUMIN 3.9 g/dl (3.4-5.0); ALK PHOS 101 U/L (45-117); ANION GAP 13 (8-16); BILIRUBIN,TOTAL 0.7 mg/dL (0.2-1.0); BLOOD UREA NITROGEN 16 mg/dL (7-18); CALCIUM 8.7 mg/dL (8.5-10.1); CHLORIDE 99 mmol/L (98-107); CO2 24 mmol/L (21-32); CREATININE 0.8 mg/dL (0.55-1.02); GLUCOSE,RANDOM 137 mg/dL (74-106); POTASSIUM 4.5 mmol/L (3.5-5.1); SGOT/AST 13 U/L (15-37); SGPT/ALT 36 U/L (12-78); SODIUM 136 mmol/L (136-145); TOT PROT 7.1 g/dl (6.4-8.2)
[2017-07-01] MEDS ORDERED: PALONOSETRON HCL 0.25 MG/5 ML VIAL IVPUSH ONE (10:00)
[2017-07-01] MEDS ORDERED: DEXAMETHASONE INJECTION 20 MG, DIPHENHYDRAMINE 25 MG, RANITIDINE INJECTION 50 MG in SOD... IVPB ONE (10:00)
[2017-07-01] MEDS ORDERED: PACLITAXEL 138 MG in SODIUM CHLORIDE 250 ML IVPB ONE (10:30)
[2017-07-01 14:11] VITALS: TEMP 97.7
[2017-07-01] MEDS ORDERED: PORTA CATH FLUSH 10 ML IVPUSH ONE (14:11)
[2017-07-01 14:18] VITALS: BP 127/65; PULSE 75
[2017-07-01 15:05] LABS: BILIRUBIN,DIRECT 0.2 mg/dL (0.0-0.2)
--- NOTE | 2017-07-05 00:37 | PN ---
Progress Note (short form) - Note Progress Note: Patients daughter called 07/02 stating mother had cough. Had been to [facility] earlier in the day 07/02.No fevers/SOB or any other symptoms. Prescribed levaquin. Asked them to come to ER for any fever/chills/worsening cough/SOB.
== END 2017-07-01 11:20 | disposition home or self-care (01) ==
LOC: JONCCHEMO 07:18 → J7W 09:11 → JONCCHEMO 11:20
PROVIDERS: ATTEND Internal Medicine Hematology & Oncology
DX: Z51.11 Encounter for antineoplastic chemotherapy (principal); C50.919 Malignant neoplasm of unspecified site of unspecified female breast; C79.51 Secondary malignant neoplasm of bone
CPT/HCPCS: 36415; 80053; 80076; 85025; 96361; 96367; 96375; 96413; J1100; J2469

== ENCOUNTER 2017-07-04 19:24 | Inpatient (IN) | payer MEDICARE ==
--- NOTE | 2017-07-04 19:54 | PDOC ---
History of Present Illness - General History Source: Patient Exam Limitations: No Limitations - History of Present Illness Initial Comments: 07/04/17 20:28 The patient is a 67 year old female, with a significant PMH of HTN, GERD, breast cancer stage 4 with mets to bilateral femurs (follows Dr. Galvan; last chemo on 07/01 and radiation yesterday) who presents to the emergency department with persistent cough for the past 2 days and fever after receiving radiation yesterday. The patient was seen by Dr. Hall for this fever and was placed on levaquin. The patient took Tylenol 500mg and is endorsing chills, wheezing, and generalized weakness. The patient denies chest pain, shortness of breath, headache and dizziness. Denies nausea, vomit, diarrhea and constipation. Denies dysuria, frequency, urgency and hematuria. Allergies: NKA Past surgical history: None reported Social history: No reported alcohol, drug, or cigarette use. Oncologist: Dr. Galvan <Sofia Bryant - Last Filed: 07/04/17 21:25> <Brett Stephenson - Last Filed: 07/04/17 22:10> - General Chief Complaint: Respiratory Stated Complaint: FEVER/ PCP SENT Time Seen by Provider: 07/04/17 19:54 Past History <Sofia Bryant - Last Filed: 07/04/17 21:25> - Past Medical History Anemia: No Asthma: No Cancer: Yes (breast cancer left 2 weeks ago) Cardiac Disorders: No CVA: No COPD: No CHF: No Dementia: No Diabetes: No GI Disorders: No Disorders: No HTN: Yes Hypercholesterolemia: No Liver Disease: No Seizures: No Thyroid Disease: No - Surgical History Abdominal Surgery: Yes Appendectomy: No Cardiac Surgery: No Cholecystectomy: No Lung Surgery: No Neurologic Surgery: No Orthopedic Surgery: No - Suicide/Smoking/Psychosocial Hx Smoking History: Never smoked Hx Alcohol Use: No Drug/Substance Use Hx: No Substance Use Type: None Hx Substance Use Treatment: No <Brett Stephenson - Last Filed: 07/04/17 22:10> - Past Medical History Allergies/Adverse Reactions: Allergies Allergy/AdvReac Type Severity Reaction Status Date / Time No Known Drug Allergies Allergy Verified 05/30/17 09:10 Home Medications: Ambulatory Orders Alprazolam [Xanax] 0.25 mg PO TID 05/30/17 Dexamethasone 4 mg PO ASDIR 05/30/17 Gabapentin 300 mg PO TID 05/30/17 Lisinopril/Hydrochlorothiazide [Lisinopril-Hctz 10-12.5 mg Tab] 1 each PO DAILY 05/30/17 Metoprolol Succinate [Toprol Xl] 25 mg PO DAILY 05/30/17 Tramadol HCl 50 mg PO PRN 05/30/17 Review of Systems - Review of Systems Able to Perform ROS?: Yes Comments:: 07/04/17 20:31 CONSTITUTIONAL: (+) Fever. (+) Generalized weakness. (+) Chills. EYES: No visual changes ENT: No ear pain, no sore throat CARDIOVASCULAR: No chest pain, no palpitations RESPIRATORY: No cough, no SOB GI: No abdominal pain, no nausea, no vomiting, no constipation, no diarrhea GENITOURINARY: No dysuria, no frequency, no hematuria MUSKULOSKELETAL: No backpain, no joint pain, no myalgias SKIN: No rash NEURO: No headache <Sofia Bryant - Last Filed: 07/04/17 21:25> *Physical Exam - Vital Signs Last Vital Signs Temp Pulse Resp BP Pulse Ox 102.9 F H 125 H 20 113/35 97 07/04/17 19:45 07/04/17 19:45 07/04/17 19:45 07/04/17 19:45 07/04/17 19:45 - Physical Exam Comments: 07/04/17 20:32 CONSTITUTIONAL: (+) Frail, in mild distress. HEAD: (+) Alopecia. Normocephalic; atraumatic EYES: PERRL; EOM intact ENMT: (+) Dry mucous membranes. External appears normal; normal oropharynx NECK: Supple; non-tender; no cervical lymphadenopathy CARD: Normal S1, S2; no murmurs, rubs, or gallops RESP: Normal chest excursion with respiration; breath sounds clear and equal bilaterally; no wheezes, rhonchi, or rales ABD: Soft, non-distended; non-tender; no palpable organomegaly, no palpable hernias EXT: Normal ROM in all four extremities; non-tender to palpation; distal pulses intact SKIN: Warm, dry, no rash NEURO: No focal neurological deficiencies. <Sofia Bryant - Last Filed: 07/04/17 21:25> Heart Score/ECG Review #1 07/04/17 21:26 EKG performed at [21:04] demonstrates rate of [92], Normal Sinus Rhythm. <Sofia Bryant - Last Filed: 07/04/17 21:25> ED Treatment Course - LABORATORY CBC & Chemistry Diagram: 07/04/17 20:20 07/04/17 20:20 <Manny,Sofia - Last Filed: 07/04/17 21:25> - LABORATORY CBC & Chemistry Diagram: 07/04/17 20:20 07/04/17 20:20 <Brett Stephenson - Last Filed: 07/04/17 22:10> Medical Decision Making - Critical Care Time Total Critical Care Time (minutes): 35 Critical Care Statement: The care of this patient involved high complexity decision making to prevent further life threatening deterioration of the patient 's condition and/or to evaluate & treat vital organ system(s) failure or risk of failure. - Medical Decision Making 07/04/17 21:20 Patient is a frail-appearing 67-year-old female with history of metastatic breast cancer, status post chemotherapy and radiation who presents with generalized weakness and malaise, fever and tachycardia. Patient's currently on Levaquin (day 2 without significant improvement. On initial evaluation, patient is febrile, tachycardic and normotensive without meningeal signs, intermittent rhonchi in all lung lara, soft nontender abdomen no evidence of lower extremity edema. We'll obtain blood and urine cultures. Will aggressively resuscitated. We'll administer antipyretics. We'll consider broad-spectrum antibiotics of patient's hemodynamic status deteriorates. Will consult nephrology/oncology. 07/04/17 21:27 Patient has defervesced but her blood pressure is now 85/48. Blood and urine cultures are been obtained. Chest x-ray reveals no evidence of infiltrate or effusion. CBC reveals leukocyte count of 3 with 85% neutrophils (patient is not neutropenic). Given the drop in blood pressure, we'll administer broad-spectrum antibiotics. Will continue to aggressively fluid resuscitated. 07/04/17 21:52 pt reports that she had a bad reaction to tamiflu which included shaking chills and high fever. pt is hesitant to take it again. 07/04/17 21:58 pt is flu a positive, i have explained to the pt the importance of taking Tamiflu. We'll administer. Will admit to the ICU. 07/04/17 22:09 Case discussed with Tez covering for Dr. Galvan. He agrees with the plan of care. Will follow Patient on the floor. <Brett Stephenson - Last Filed: 07/04/17 22:10> *DC/Admit/Observation/Transfer - Attestations Scribe Attestion: 07/04/17 20:32 Documentation prepared by Sofia Bryant, acting as medical operations supervisor for Brett Stephenson MD. <Sofia Bryant - Last Filed: 07/04/17 21:25> - Discharge Dispostion Admit: Yes - Attestations Physician Attestion: 07/04/17 21:20 The documentation was prepared by the scribe under my direct supervision. I have reviewed the documentation which correctly represents the findings, medical decision-making and critical action taken by me. <Brett Stephenson - Last Filed: 07/04/17 22:10> Diagnosis at time of Disposition: Influenza A Sepsis Qualifiers: Sepsis type: sepsis due to unspecified organism Qualified Code(s): A41.9 - Sepsis, unspecified organism - Discharge Dispostion Condition at time of disposition: Critical - Referrals Referrals: Shay Galvan MD [Primary Care Provider] -
[2017-07-04] MEDS ORDERED: SODIUM CHLORIDE 0.9% 1000 ML INFUS.BAG IV STA (20:06)
[2017-07-04] MEDS ORDERED: ACETAMINOPHEN INJECTION 100 ML IVPB ONE (20:07)
[2017-07-04] MEDS ORDERED: ACETAMINOPHEN 1000 MG/100 ML VIAL (NON FORMULARY) IVPB ONE (20:07)
[2017-07-04 20:34] LABS: BASO % 0.8 % (0-2.0); EOS % 1.2 % (0-4.5); HEMATOCRIT 31.1 % (32.4-45.2); MCH 29.9 pg (25.7-33.7); MCHC 35.4 g/dl (32.0-36.0); MEAN CELL VOLUME 84.6 fl (80-96); MEAN PLT VOLUME 7.9 fl (7.5-11.1); MONO % 5.8 % (3.8-10.2); NEUT % 85.2 % (42.8-82.8); PLATELET COUNT 239 K/MM3 (134-434); RBC 3.67 M/mm3 (3.60-5.2); RDW 14.5 % (11.6-15.6)
[2017-07-04 20:40] LABS: VENOUS PC02 34.9 mmHg (38-52); VENOUS PH 7.45 (7.32-7.42); VENOUS PO2 32.4 mmHg (28-48)
[2017-07-04 20:53] LABS: INR 1.18 (0.82-1.09); PROTHROMBIN TIME (PATIENT) 13.3 SEC (9.98-11.88)
[2017-07-04] MEDS ORDERED: SODIUM CHLORIDE 1,000 ML IV STA (21:19)
[2017-07-04 21:20] LABS: URINE APPEARANCE SLCLOUDY; URINE BILIRUBIN NEGATIVE (NEGATIVE); URINE BLOOD NEGATIVE (NEGATIVE); URINE COLOR YELLOW; URINE GLUCOSE (UA) NEGATIVE (NEGATIVE); URINE KETONE NEGATIVE (NEGATIVE); URINE LEUK ESTERASE TRACE (NEGATIVE); URINE NITRITE NEGATIVE (NEGATIVE); URINE UROBILINOGEN NEGATIVE mg/dL (0.2-1.0)
[2017-07-04] MEDS ORDERED: PIPERACILLIN/TAZOB 3.375 GM/50 ML PRE-DOCKED IVPB ONE (21:20)
[2017-07-04] MEDS ORDERED: PIPERACILLIN/TAZOB 3.375 GM 3.375 GM/50 ML BAG IVPB ONE (21:25)
[2017-07-04 21:26] LABS: ALBUMIN 3.6 g/dl (3.4-5.0); ANION GAP 7 (8-16); BLOOD UREA NITROGEN 10 mg/dL (7-18); CALCIUM 7.1 mg/dL (8.5-10.1); CHLORIDE 97 mmol/L (98-107); CO2 24 mmol/L (21-32); GLUCOSE,RANDOM 128 mg/dL (74-106); SGOT/AST 14 U/L (15-37); SGPT/ALT 33 U/L (12-78); SODIUM 128 mmol/L (136-145)
[2017-07-04 21:26] LABS: URINE PROTEIN 1+ (NEGATIVE)
[2017-07-04 21:28] LABS: ALK PHOS 93 U/L (45-117); BILIRUBIN,TOTAL 2.2 mg/dL (0.2-1.0); TOT PROT 6.4 g/dl (6.4-8.2)
[2017-07-04 21:28] LABS: EPI CELLS RARE /HPF (FEW); URINE BACTERIA RARE /hpf (NONE SEEN); URINE HYALINE CAST 7 /lpf; URINE MUCUS FEW
[2017-07-04] MEDS ORDERED: VANCOMYCIN 1,500 MG in DEXTROSE 5%-WATER - 500 ML IVPB ONE (21:30)
[2017-07-04] MEDS ORDERED: OSELTAMIVIR PHOSPHATE 75 MG CAPSULE PO ONE (21:30)
[2017-07-04] MEDS ORDERED: OSELTAMIVIR PHOSPHATE 75 MG CAPSULE ONE (21:59)
--- NOTE | 2017-07-04 22:43 | CONSULT ---
Consult Consult Specialty:: PULM/CCM Referred by:: Dr. Lula Amos Reason for Consultation:: Neutropenic PNA - History of Present Illness Chief Complaint: Fever/Cough History of Present Illness: Mrs. Julianna Escobar is a 67 y/o woman w/ HTN, GERD, stage 4 metastatic breast CA on Chemo & XRT (Most recent Chemo 07/01) [Pt of Dr. Galvan]. Pt seen by Dr. Hall yesterday for fever & cough & placed on LVQ. Pt presents now to the ED w/ fever & worsening cough X 2 Days. Pt also endorses wheezing, gen weakness , & chills. Pt denies any CP, SOB, DEVRIES, Dizzy, N/V/D, denies any dysuria, frequency, urgency, hematuria or constipation. Pt admitted to the ICU jocelynn- neutropenic & w/ a flu + PNA. Pt denies any recent sick contacts. Pt endorses no flu shot this year. - History Source History Provided By: Patient, Medical Record Limitations to Obtaining History: Language Barrier - Past Medical History Cardio/Vascular: Yes: HTN Gastrointestinal: Yes: GERD Heme/Onc: Yes: Cancer Psych: Yes: Anxiety - Past Surgical History Past Surgical History: Yes: Hysterectomy - Alcohol/Substance Use Hx Alcohol Use: No - Smoking History Smoking history: Never smoked - Social History Usual Living Arrangement: With Child ADL: Independent Place of : Other History of Recent Travel: No Home Medications - Allergies Allergies/Adverse Reactions: Allergies Allergy/AdvReac Type Severity Reaction Status Date / Time No Known Drug Allergies Allergy Verified 05/30/17 09:10 - Home Medications Home Medications: Ambulatory Orders Alprazolam [Xanax] 0.25 mg PO TID 05/30/17 Dexamethasone 4 mg PO ASDIR 05/30/17 Gabapentin 300 mg PO TID 05/30/17 Lisinopril/Hydrochlorothiazide [Lisinopril-Hctz 10-12.5 mg Tab] 1 each PO DAILY 05/30/17 Metoprolol Succinate [Toprol Xl] 25 mg PO DAILY 05/30/17 Tramadol HCl 50 mg PO PRN 05/30/17 Family Disease History - Family Disease History Family Disease History: CA: Brother, Sister Review of Systems - Review of Systems Constitutional: reports: Chills, Fever, Malaise Eyes: reports: No Symptoms HENT: reports: No Symptoms Neck: reports: No Symptoms Cardiovascular: reports: No Symptoms Respiratory: reports: Cough, SOB, Wheezing Gastrointestinal: reports: No Symptoms Genitourinary: reports: No Symptoms Breasts: reports: No Symptoms Reported Integumentary: reports: No Symptoms Neurological: reports: No Symptoms Endocrine: reports: No Symptoms Hematology/Lymphatic: reports: No Symptoms Psychiatric: reports: Anxiety Pain Intensity: 0 Physical Exam Vital Signs: Vital Signs Temperature 99.8 F H 07/04/17 21:19 Pulse Rate 125 H 07/04/17 19:45 Respiratory Rate 20 07/04/17 19:45 Blood Pressure 88/51 07/04/17 21:50 O2 Sat by Pulse Oximetry (%) 97 07/04/17 19:45 Intake & Output 07/02/17 07/03/17 07/04/17 07/05/17 23:59 23:59 23:59 23:59 Weight 67.699 kg Constitutional: Yes: Well Nourished, No Distress, Calm Eyes: Yes: WNL, Conjunctiva Clear, EOM Intact HENT: Yes: WNL, Atraumatic, Normocephalic Neck: Yes: WNL, Supple, Trachea Midline Cardiovascular: Yes: WNL, Regular Rate and Rhythm Respiratory: Yes: On Nasal O2, Rhonchi Gastrointestinal: Yes: WNL, Normal Bowel Sounds, Soft, Abdomen, Obese ...Rectal Exam: Yes: Deferred Renal/: Yes: WNL Breast(s): Yes: WNL Musculoskeletal: Yes: WNL Extremities: Yes: WNL Edema: No Peripheral Pulses WNL: Yes Integumentary: Yes: WNL Neurological: Yes: WNL, Alert, Oriented ...Motor Strength: WNL Psychiatric: Yes: WNL, Alert, Oriented Labs: CBC, BMP 07/04/17 20:20 07/04/17 20:20 Microbiology 07/04/17 21:10 Nasopharyngeal Swab Influenza Type A POSITIVE (VICKI) - Final 07/04/17 21:10 Nasopharyngeal Swab - Final Imaging - Results Chest X-ray: Image Reviewed (CXR 07/04: R IJ-ACW Port, otherwise clear (My Read). ) EKG: Image Reviewed (12-Lead EKG 07/04: RSR in the 90's w/o ectopy, normal axis, no ST or T-wave aberrations, QTc = 435ms, no acute process (My Read).) Problem List - Problems (1) Influenza A Code(s): J10.1 - FLU DUE TO OTH IDENT INFLUENZA VIRUS W OTH RESP MANIFEST (2) Fever Code(s): R50.9 - FEVER, UNSPECIFIED (3) Breast cancer, left breast Code(s): C50.912 - MALIGNANT NEOPLASM OF UNSPECIFIED SITE OF LEFT FEMALE BREAST Qualifiers: Breast location: lower inner quadrant of breast Patient sex: female (4) Sepsis Code(s): A41.9 - SEPSIS, UNSPECIFIED ORGANISM Qualifiers: Sepsis type: sepsis due to unspecified organism Qualified Code(s): A41.9 - Sepsis, unspecified organism Assessment/Plan ASSESS: This is a 67 y/o woman w/ HTN, GERD, & Stage 4 metastatic breast CA on Chemo & XRT admitted now w/ a Flu + PNA in the setting of leukopenia. PLAN: -Panclxr -FiO2 prn for an SpO2 > 92% -NEBS -CPT -IS -Vanc, Zo, Estephania -F/u Clxrs -IVFs -Trend LA -Tylenol prn -I's & O's -Xanax prn for anxiety -SQH -SCDs -Pepcid DGL, ACNP-BC [facility] ICU PULM/CCM [id number]
[2017-07-04 23:23] VITALS: BMI 26.4
[2017-07-04] MEDS ORDERED: ACETAMINOPHEN 325 MG TABLET (FP) PO PRN (23:27)
--- NOTE | 2017-07-04 23:27 | HP ---
Admitting History and Physical - Primary Care Physician PCP: Lula Amos - Admission Chief Complaint: Fever, Cough History of Present Illness: This is a 67 y/o woman with a significant medical history of Stage 4 Breast Ca w /mets spine (on chemo, LD 07/03). Who presents to the ED with fever and cough. History Source: Patient, Family Member Limitations to Obtaining History: No Limitations - Past Medical History Cardiovascular: Yes: HTN Gastrointestinal: Yes: GERD Heme/Onc: Yes: Cancer (Breast w/mets spine, femur) Psych: Yes: Anxiety - Past Surgical History Past Surgical History: Yes: Hysterectomy - Smoking History Smoking history: Never smoked Have you smoked in the past 12 months: No - Alcohol/Substance Use Hx Alcohol Use: No Home Medications - Allergies Allergies/Adverse Reactions: Allergies Allergy/AdvReac Type Severity Reaction Status Date / Time No Known Drug Allergies Allergy Verified 05/30/17 09:10 - Home Medications Home Medications: Ambulatory Orders Alprazolam [Xanax] 0.25 mg PO TID 05/30/17 Dexamethasone 4 mg PO ASDIR 05/30/17 Gabapentin 300 mg PO TID 05/30/17 Lisinopril/Hydrochlorothiazide [Lisinopril-Hctz 10-12.5 mg Tab] 1 each PO DAILY 05/30/17 Metoprolol Succinate [Toprol Xl] 25 mg PO DAILY 05/30/17 Tramadol HCl 50 mg PO PRN 05/30/17 Family Disease History - Family Disease History Family Disease History: CA: Brother, Sister Review of Systems - Review of Systems Constitutional: reports: Chills, Fever, Malaise, Weakness Eyes: reports: No Symptoms HENT: reports: No Symptoms Neck: reports: No Symptoms Cardiovascular: reports: Shortness of Breath Respiratory: reports: Cough, SOB Gastrointestinal: reports: No Symptoms Genitourinary: reports: No Symptoms Breasts: reports: No Symptoms Reported Musculoskeletal: reports: Back Pain Integumentary: reports: No Symptoms Neurological: reports: No Symptoms Endocrine: reports: No Symptoms Hematology/Lymphatic: reports: No Symptoms Psychiatric: reports: No Symptoms Physical Examination Vital Signs: Vital Signs Temperature 98.4 F 07/04/17 23:20 Pulse Rate 82 07/04/17 23:20 Respiratory Rate 20 07/04/17 23:20 Blood Pressure 100/57 07/04/17 23:20 O2 Sat by Pulse Oximetry (%) 100 07/04/17 22:45 Constitutional: Yes: Well Nourished, No Distress, Calm Eyes: Yes: WNL, Conjunctiva Clear, EOM Intact, PERRL HENT: Yes: WNL, Atraumatic, Normocephalic Neck: Yes: WNL, Supple, Trachea Midline Cardiovascular: Yes: WNL, Regular Rate and Rhythm, S1, S2 Respiratory: Yes: WNL, Diminished, On Nasal O2, Rhonchi Gastrointestinal: Yes: WNL, Normal Bowel Sounds, Soft Renal/: Yes: WNL Musculoskeletal: Yes: Back Pain Edema: No Peripheral Pulses WNL: Yes Neurological: Yes: WNL, Alert, Oriented ...Motor Strength: WNL Psychiatric: Yes: WNL, Alert, Oriented Labs: CBC, BMP 07/04/17 20:20 07/04/17 20:20 Laboratory Results - last 24 hr 07/04/17 07/04/17 07/04/17 20:20 20:20 20:20 WBC 3.0 L RBC 3.67 Hgb 11.0 Hct 31.1 L MCV 84.6 MCH 29.9 MCHC 35.4 RDW 14.5 Plt Count 239 D MPV 7.9 Neutrophils % 85.2 H Lymphocytes % 7.0 L D Monocytes % 5.8 Eosinophils % 1.2 Basophils % 0.8 PT with INR 13.30 H INR 1.18 H PTT (Actin FS) 33.0 VBG pH 7.45 H POC VBG pCO2 34.9 L POC VBG pO2 32.4 Mixed VBG HCO3 23.8 Sodium Potassium Chloride Carbon Dioxide Anion Gap BUN Creatinine Creat Clearance w eGFR Random Glucose Lactic Acid Calcium Total Bilirubin AST ALT Alkaline Phosphatase Troponin I Total Protein Albumin Urine Color Urine Appearance Urine pH Ur Specific [place] Urine Protein Urine Glucose (UA) Urine Ketones Urine Blood Urine Nitrite Urine Bilirubin Urine Urobilinogen Ur Leukocyte Esterase Urine WBC (Auto) Urine RBC (Auto) Ur Epithelial Cells Urine Bacteria Hyaline Casts Urine Mucus 07/04/17 07/04/17 07/04/17 20:20 20:20 20:20 WBC RBC Hgb Hct MCV MCH MCHC RDW Plt Count MPV Neutrophils % Lymphocytes % Monocytes % Eosinophils % Basophils % PT with INR INR PTT (Actin FS) VBG pH POC VBG pCO2 POC VBG pO2 Mixed VBG HCO3 Sodium 128 L Potassium 4.0 Chloride 97 L Carbon Dioxide 24 Anion Gap 7 L BUN 10 Creatinine 1.0 Creat Clearance w eGFR 55.64 Random Glucose 128 H Lactic Acid 1.5 Calcium 7.1 L Total Bilirubin 2.2 H D AST 14 L ALT 33 Alkaline Phosphatase 93 Troponin I < 0.02 Total Protein 6.4 Albumin 3.6 Urine Color Urine Appearance Urine pH Ur Specific [place] Urine Protein Urine Glucose (UA) Urine Ketones Urine Blood Urine Nitrite Urine Bilirubin Urine Urobilinogen Ur Leukocyte Esterase Urine WBC (Auto) Urine RBC (Auto) Ur Epithelial Cells Urine Bacteria Hyaline Casts Urine Mucus 07/04/17 21:10 WBC RBC Hgb Hct MCV MCH MCHC RDW Plt Count MPV Neutrophils % Lymphocytes % Monocytes % Eosinophils % Basophils % PT with INR INR PTT (Actin FS) VBG pH POC VBG pCO2 POC VBG pO2 Mixed VBG HCO3 Sodium Potassium Chloride Carbon Dioxide Anion Gap BUN Creatinine Creat Clearance w eGFR Random Glucose Lactic Acid Calcium Total Bilirubin AST ALT Alkaline Phosphatase Troponin I Total Protein Albumin Urine Color Yellow Urine Appearance Slcloudy Urine pH 7.0 Ur Specific [place] 1.015 Urine Protein 1+ H Urine Glucose (UA) Negative Urine Ketones Negative Urine Blood Negative Urine Nitrite Negative Urine Bilirubin Negative Urine Urobilinogen Negative Ur Leukocyte Esterase Trace Urine WBC (Auto) 3 Urine RBC (Auto) <1 Ur Epithelial Cells Rare Urine Bacteria Rare Hyaline Casts 7 Urine Mucus Few Intake & Output 07/02/17 07/03/17 07/04/17 07/05/17 23:59 23:59 23:59 23:59 Intake Total 800 Balance 800 Weight 67.699 kg Current Medications Generic Name Dose Route Start Last Admin Trade Name Freq PRN Reason Stop Dose Admin Acetaminophen 650 mg 07/04/17 23:27 Tylenol - PO Q4H PRN FEVER Albuterol Sulfate 1 amp 07/04/17 23:34 Ventolin 0.083% Nebulizer Soln - NEB Q4H PRN SHORT OF BREATH/WHEEZING Alprazolam 0.25 mg 07/04/17 23:28 Xanax - PO Q8H PRN ANXIETY Chlorhexidine Gluconate 1 applic 07/05/17 22:00 Hibiclens For Decolonization - TP HS CARTER Sodium Chloride 1,000 mls @ 100 mls/hr 07/04/17 23:30 07/04/17 23:40 Normal Saline - IV 100 mls/hr ASDIR CARTER Administration Vancomycin HCl 1,000 mg/ 250 mls @ 200 mls/hr 07/05/17 22:00 Dextrose IVPB Q12H CARTER Vancomycin HCl 1,000 mg/ 250 mls @ 200 mls/hr 07/05/17 10:00 Dextrose IVPB 07/05/17 11:14 ONCE ONE Famotidine/Sodium Chloride 20 mg in 50 mls @ 100 mls/hr 07/05/17 10:00 Pepcid 20 Mg Premixed Ivpb - IVPB BID CARTER Mupirocin 1 applic 07/05/17 10:00 Bactroban Ointment (For Decolonization) - NS 07/10/17 09:59 BID CARTER Oseltamivir Phosphate 75 mg 07/05/17 10:00 Tamiflu - PO 07/10/17 09:59 BID CARTER Piperacillin Sod/Tazobactam Sod 4.5 gm 07/05/17 05:00 Zosyn 4.5gm Ivpb (Pre-Docked) IVPB 07/05/17 05:01 ONCE ONE Piperacillin/Tazobactam/Dextrose 4.5 gm 07/05/17 10:00 Zosyn 4.5gm Ivpb (Premix) IVPB Q8H-IV CARTER Imaging - Results Chest X-ray: Image Reviewed EKG: Image Reviewed Problem List - Problems (1) Influenza A Code(s): J10.1 - FLU DUE TO OTH IDENT INFLUENZA VIRUS W OTH RESP MANIFEST (2) Sepsis Code(s): A41.9 - SEPSIS, UNSPECIFIED ORGANISM Qualifiers: Sepsis type: sepsis due to unspecified organism Qualified Code(s): A41.9 - Sepsis, unspecified organism (3) Fever Code(s): R50.9 - FEVER, UNSPECIFIED (4) Breast cancer, left breast Code(s): C50.912 - MALIGNANT NEOPLASM OF UNSPECIFIED SITE OF LEFT FEMALE BREAST Qualifiers: Breast location: lower inner quadrant of breast Patient sex: female (5) DVT prophylaxis Code(s): [id number] - Assessment/Plan This is a 67 y/o woman with a PMHx of Stage 4 Breast Ca with mets spine/femur ( last chemo 07/01, radiation yesterday). Admitted for Sepsis secondary to Influenza A Plan: 1. Sepsis- Likely secondary to Influenza A+, Blood Cultures-pending, Urine culture pending, Zosyn, Vancomycin, and Tamiflu given in ED, will continue. Appreciate ID consult, Appreciate Buffing Turner And Counter consult. Continue IVF, monitor lactic acid, vitals, CBC, BMP. qSOFA 2, SIRS Criteria met IV 2. Influenza A+- Rapid Flu positive, Continue tamiflu, supportive care 3. Stage 4 Breast Ca- s/p Chemo/RT, Appreciate Oncology consult 4. FEN- PO Fluids, Monitor lactic acid, Regular Diet 5. DVT ppx- SCDs, Heparin SQ Dispo: Requires Inpatient Care Visit type - Emergency Visit Emergency Visit: Yes ED Registration Date: 07/04/17 Care time: The patient presented to the Emergency Department on the above date and was hospitalized for further evaluation of their emergent condition. - New Patient This patient is new to me today: Yes Date on this admission: 07/05/17 - Critical Care Critical Care patient: No Hospitalist Screening - Colonoscopy Questionnaire Colonoscopy Questionnaire: Colonoscopy Questionnaire - Patient: 50 - 75 years old and never had a screening colonoscopy: No History of colon or rectal polyps, or CA: No History of IBD, Crohn's disease or UC: No History of abdominal radiation therapy as a child: No - Relative: 1 with colon or rectal CA, or polyps at age 60 or younger: No Colon or rectal CA diagnosed at age 45 or younger: No Multiple relatives with colon or rectal CA: No - Outcome: Screening Result: Negative Screen
[2017-07-04] MEDS ORDERED: ALPRAZolam 0.25 MG TABLET PO STA (23:28)
[2017-07-04] MEDS ORDERED: ALPRAZolam 0.25 MG TABLET PO PRN (23:28)
[2017-07-04] MEDS ORDERED: ALBUTEROL SO4 0.083% IH SOL 2.5 MG/3 ML VIAL.NEB. NEB STA (23:34)
[2017-07-04] MEDS ORDERED: ALBUTEROL SO4 0.083% IH SOL 2.5 MG/3 ML VIAL.NEB. NEB PRN (23:34)
[2017-07-04] MEDS: SODIUM CHLORIDE 1,000 ML IV SCH (23:40)
[2017-07-04] MEDS ORDERED: LACTATED RINGERS SOLUTION 1,000 ML/1,000 ML INFUS.BAG IV STA (23:52)
[2017-07-05] MEDS ORDERED: PIPERACILLIN/TAZOB 4.5 GM/100 ML PRE-DOCKED IVPB ONE (05:00)
[2017-07-05] MEDS ORDERED: MAG HYDROX/AL HYDROX/SIMETH 30 ML UNIT-DOSE CUP PO STA (05:55)
[2017-07-05] MEDS ORDERED: MAG HYDROX/AL HYDROX/SIMETH 30 ML UNIT-DOSE CUP PO PRN (05:56)
[2017-07-05 05:58] LABS: HEMATOCRIT 27.4 % (32.4-45.2); HEMOGLOBIN 9.6 GM/dL (10.7-15.3); MCH 29.8 pg (25.7-33.7); MCHC 34.9 g/dl (32.0-36.0); MEAN CELL VOLUME 85.3 fl (80-96); MEAN PLT VOLUME 7.9 fl (7.5-11.1); PLATELET COUNT 202 K/MM3 (134-434); RBC 3.22 M/mm3 (3.60-5.2); RDW 14.8 % (11.6-15.6)
[2017-07-05 06:11] LABS: WHITE BLOOD COUNT 1.7 K/mm3 (4.0-10.0)
[2017-07-05 06:30] LABS: MAGNESIUM 2.1 mg/dL (1.8-2.4); PHOSPHOROUS 2.7 mg/dL (2.5-4.9)
--- NOTE | 2017-07-05 07:16 | PN ---
Progress Note, Physician Chief Complaint: ID Breast CA S/P chemotherapy last week. Since evening of 07/02 fevers and nonproductive couph. Yesterday became to difficult to remain home and admitted. Feels alright now No SOB bodyaches headache sorethroat just couph with chest pain when she couphs - Current Medication List Current Medications: Active Medications Acetaminophen (Tylenol -) 650 mg PO Q4H PRN PRN Reason: FEVER Al Hydroxide/Mg Hydroxide (Mylanta Oral Suspension -) 30 ml PO Q6H PRN PRN Reason: DYSPEPSIA Albuterol Sulfate (Ventolin 0.083% Nebulizer Soln -) 1 amp NEB Q4H PRN PRN Reason: SHORT OF BREATH/WHEEZING Alprazolam (Xanax -) 0.25 mg PO Q8H PRN PRN Reason: ANXIETY Chlorhexidine Gluconate (Hibiclens For Decolonization -) 1 applic TP HS CARTER Sodium Chloride (Normal Saline -) 1,000 mls @ 100 mls/hr IV ASDIR CARTER Last Admin: 07/04/17 23:40 Dose: 100 mls/hr Vancomycin HCl 1,000 mg/ (Dextrose) 250 mls @ 200 mls/hr IVPB Q12H CARTER Vancomycin HCl 1,000 mg/ (Dextrose) 250 mls @ 200 mls/hr IVPB ONCE ONE Stop: 07/05/17 11:14 Famotidine/Sodium Chloride (Pepcid 20 Mg Premixed Ivpb -) 20 mg in 50 mls @ 100 mls/hr IVPB BID CARTER Mupirocin (Bactroban Ointment (For Decolonization) -) 1 applic NS BID [facility] Stop: 07/10/17 09:59 Oseltamivir Phosphate (Tamiflu -) 75 mg PO BID [facility]TER Stop: 07/10/17 09:59 Piperacillin/Tazobactam/Dextrose (Zosyn 4.5gm Ivpb (Premix)) 4.5 gm IVPB Q8H- IV CARTER - Objective Vital Signs: Vital Signs Temperature 98.5 F 07/05/17 06:00 Pulse Rate 88 07/05/17 06:00 Respiratory Rate 20 07/05/17 06:00 Blood Pressure 94/55 07/05/17 06:00 O2 Sat by Pulse Oximetry (%) 100 07/04/17 22:45 Constitutional: Yes: Well Nourished, No Distress HENT: No: Pharyngeal Erythema, Thrush Neck: Yes: WNL, Supple Cardiovascular: Yes: S2, S3, Other Respiratory: Yes: WNL, Regular, CTA Bilaterally Gastrointestinal: Yes: WNL, Normal Bowel Sounds, Soft. No: Tenderness, Tenderness, Rebound Edema: No Labs: CBC, BMP 07/05/17 05:15 07/04/17 20:20 INR, PTT INR 1.18 (0.82-1.09) H 07/04/17 20:20 Problem List - Problems (1) Metastatic breast cancer Code(s): C50.919 - MALIGNANT NEOPLASM OF UNSP SITE OF UNSPECIFIED FEMALE BREAST (2) Influenza A Code(s): J10.1 - FLU DUE TO OTH IDENT INFLUENZA VIRUS W OTH RESP MANIFEST Assessment/Plan Laboratory Tests 07/04/17 07/04/17 07/04/17 20:20 20:20 21:10 WBC 3.0 L Hgb 11.0 Hct 31.1 L Plt Count 239 D Sodium 128 L Potassium 4.0 BUN 10 Creatinine 1.0 Creat Clearance w eGFR 55.64 Alkaline Phosphatase 93 Urine WBC (Auto) 3 Urine RBC (Auto) <1 07/05/17 05:15 WBC 1.7 L* D Hgb 9.6 L D Hct 27.4 L Plt Count 202 Sodium Potassium BUN Creatinine Creat Clearance w eGFR Alkaline Phosphatase Urine WBC (Auto) Urine RBC (Auto) Assessment Metastatic breast CA (port) recent chemotherapy Influenza Fever secondary influenza Plan Blood cultures Tamiflu Will cover for neutropenic fever as blood counts on the way down ?? vs secondary influenza viral disease Dina Moe MD
[2017-07-05] MEDS ORDERED: PT OWN MED DRAWER 7, Y5N ONE ×4 (09:26→21:23)
--- NOTE | 2017-07-05 09:26 | PN ---
Progress Note, Physician History of Present Illness: Patient seen and examined. Chart reviewed. Comfortable Feels better Afebrile - Current Medication List Current Medications: Active Medications Acetaminophen (Tylenol -) 650 mg PO Q4H PRN PRN Reason: FEVER Al Hydroxide/Mg Hydroxide (Mylanta Oral Suspension -) 30 ml PO Q6H PRN PRN Reason: DYSPEPSIA Albuterol Sulfate (Ventolin 0.083% Nebulizer Soln -) 1 amp NEB Q4H PRN PRN Reason: SHORT OF BREATH/WHEEZING Last Admin: 07/05/17 07:13 Dose: 1 amp Alprazolam (Xanax -) 0.25 mg PO Q8H PRN PRN Reason: ANXIETY Chlorhexidine Gluconate (Hibiclens For Decolonization -) 1 applic TP HS CARTER Sodium Chloride (Normal Saline -) 1,000 mls @ 100 mls/hr IV ASDIR CARTER Last Admin: 07/04/17 23:40 Dose: 100 mls/hr Vancomycin HCl 1,000 mg/ (Dextrose) 250 mls @ 200 mls/hr IVPB ONCE ONE Stop: 07/05/17 11:14 Famotidine/Sodium Chloride (Pepcid 20 Mg Premixed Ivpb -) 20 mg in 50 mls @ 100 mls/hr IVPB BID CARTER Cefepime HCl 2 gm/ Dextrose 100 mls @ 200 mls/hr IVPB Q8H-IV CARTER PRN Reason: Protocol Mupirocin (Bactroban Ointment (For Decolonization) -) 1 applic NS BID [facility] Stop: 07/10/17 09:59 Oseltamivir Phosphate (Tamiflu -) 75 mg PO BID [facility] Stop: 07/10/17 09:59 - Objective Vital Signs: Vital Signs Temperature 98.8 F 07/05/17 08:00 Pulse Rate 88 07/05/17 08:00 Respiratory Rate 22 07/05/17 08:00 Blood Pressure 99/49 07/05/17 08:00 O2 Sat by Pulse Oximetry (%) 98 07/05/17 08:29 Constitutional: Yes: No Distress, Calm Eyes: Yes: Conjunctiva Clear Neck: Yes: Supple Cardiovascular: Yes: Regular Rate and Rhythm Respiratory: Yes: Diminished Gastrointestinal: Yes: Soft Edema: No Neurological: Yes: Alert Psychiatric: Yes: Alert Labs: CBC, BMP 07/05/17 05:15 03/17/18 20:20 INR, PTT INR 1.18 (0.82-1.09) H 07/04/17 20:20 Assessment/Plan In summary patient is 67 y/o woman w/ HTN, Stage 4 metastatic breast CA on Chemo admitted now with flu patient also neutropenic/immunocompromised continue Broad-spectrum antibiotics Tamiflu follow-up blood cultures. droplet/neutropenic precautions Discussed with ICU attending also We'll follow
[2017-07-05] MEDS: SODIUM CHLORIDE 1,000 ML IV SCH (09:29)
--- NOTE | 2017-07-05 09:30 | PN ---
Progress Note (short form) - Note Progress Note: Patient seen and examined in the ICU. Awake and alert. Denies CP or SOB. Breathing feels better. Noted decreasing WBC. Intake & Output 07/02/17 07/03/17 07/04/17 07/05/17 23:59 23:59 23:59 23:59 Intake Total 800 1200 Balance 800 1200 Weight 149 lb 4 oz 149 lb 4 oz Last Vital Signs Temp Pulse Resp BP Pulse Ox 98.8 F 88 22 99/49 98 07/05/17 08:00 07/05/17 08:00 07/05/17 08:00 07/05/17 08:00 07/05/17 08:29 Active Medications Acetaminophen (Tylenol -) 650 mg PO Q4H PRN PRN Reason: FEVER Al Hydroxide/Mg Hydroxide (Mylanta Oral Suspension -) 30 ml PO Q6H PRN PRN Reason: DYSPEPSIA Albuterol Sulfate (Ventolin 0.083% Nebulizer Soln -) 1 amp NEB Q4H PRN PRN Reason: SHORT OF BREATH/WHEEZING Last Admin: 07/05/17 07:13 Dose: 1 amp Alprazolam (Xanax -) 0.25 mg PO Q8H PRN PRN Reason: ANXIETY Chlorhexidine Gluconate (Hibiclens For Decolonization -) 1 applic TP HS CARTER Sodium Chloride (Normal Saline -) 1,000 mls @ 100 mls/hr IV ASDIR CARTER Last Admin: 07/04/17 23:40 Dose: 100 mls/hr Vancomycin HCl 1,000 mg/ (Dextrose) 250 mls @ 200 mls/hr IVPB ONCE ONE Stop: 07/05/17 11:14 Famotidine/Sodium Chloride (Pepcid 20 Mg Premixed Ivpb -) 20 mg in 50 mls @ 100 mls/hr IVPB BID CARTER Cefepime HCl 2 gm/ Dextrose 100 mls @ 200 mls/hr IVPB Q8H-IV CARTER PRN Reason: Protocol Mupirocin (Bactroban Ointment (For Decolonization) -) 1 applic NS BID [facility] Stop: 07/10/17 09:59 Oseltamivir Phosphate (Tamiflu -) 75 mg PO BID [facility] Stop: 07/10/17 09:59 Constitutional: Yes: Awake and alert, NAD Eyes: Yes: WNL, Conjunctiva Clear, EOM Intact HENT: Yes: WNL, Atraumatic, Normocephalic Neck: Yes: WNL, Supple, Trachea Midline Cardiovascular: Yes: WNL, Regular Rate and Rhythm Respiratory: Yes: On RA, Clear Gastrointestinal: Yes: WNL, Normal Bowel Sounds, Soft, Abdomen, Obese ...Rectal Exam: Yes: Deferred Renal/: Yes: WNL Breast(s): Yes: WNL Musculoskeletal: Yes: WNL Extremities: Yes: WNL Edema: No Peripheral Pulses WNL: Yes Integumentary: Yes: WNL Neurological: Yes: WNL, Alert, Oriented ...Motor Strength: WNL Psychiatric: Yes: WNL, Alert, Oriented Labs: Laboratory Results - last 24 hr 07/04/17 07/04/17 07/04/17 20:20 20:20 20:20 WBC 3.0 L RBC 3.67 Hgb 11.0 Hct 31.1 L MCV 84.6 MCH 29.9 MCHC 35.4 RDW 14.5 Plt Count 239 D MPV 7.9 Neutrophils % 85.2 H Lymphocytes % 7.0 L D Monocytes % 5.8 Eosinophils % 1.2 Basophils % 0.8 PT with INR 13.30 H INR 1.18 H PTT (Actin FS) 33.0 VBG pH 7.45 H POC VBG pCO2 34.9 L POC VBG pO2 32.4 Mixed VBG HCO3 23.8 Sodium Potassium Chloride Carbon Dioxide Anion Gap BUN Creatinine Creat Clearance w eGFR Random Glucose Lactic Acid Calcium Phosphorus Magnesium Total Bilirubin AST ALT Alkaline Phosphatase Troponin I Total Protein Albumin Urine Color Urine Appearance Urine pH Ur Specific Power Urine Protein Urine Glucose (UA) Urine Ketones Urine Blood Urine Nitrite Urine Bilirubin Urine Urobilinogen Ur Leukocyte Esterase Urine WBC (Auto) Urine RBC (Auto) Ur Epithelial Cells Urine Bacteria Hyaline Casts Urine Mucus 07/04/17 07/04/17 07/04/17 20:20 20:20 20:20 WBC RBC Hgb Hct MCV MCH MCHC RDW Plt Count MPV Neutrophils % Lymphocytes % Monocytes % Eosinophils % Basophils % PT with INR INR PTT (Actin FS) VBG pH POC VBG pCO2 POC VBG pO2 Mixed VBG HCO3 Sodium 128 L Potassium 4.0 Chloride 97 L Carbon Dioxide 24 Anion Gap 7 L BUN 10 Creatinine 1.0 Creat Clearance w eGFR 55.64 Random Glucose 128 H Lactic Acid 1.5 Calcium 7.1 L Phosphorus Magnesium Total Bilirubin 2.2 H D AST 14 L ALT 33 Alkaline Phosphatase 93 Troponin I < 0.02 Total Protein 6.4 Albumin 3.6 Urine Color Urine Appearance Urine pH Ur Specific Power Urine Protein Urine Glucose (UA) Urine Ketones Urine Blood Urine Nitrite Urine Bilirubin Urine Urobilinogen Ur Leukocyte Esterase Urine WBC (Auto) Urine RBC (Auto) Ur Epithelial Cells Urine Bacteria Hyaline Casts Urine Mucus 07/04/17 07/05/17 07/05/17 21:10 05:15 05:15 WBC 1.7 L* D RBC 3.22 L Hgb 9.6 L D Hct 27.4 L MCV 85.3 MCH 29.8 MCHC 34.9 RDW 14.8 Plt Count 202 MPV 7.9 Neutrophils % No Result Required. Lymphocytes % No Result Required. Monocytes % Eosinophils % Basophils % PT with INR INR PTT (Actin FS) VBG pH POC VBG pCO2 POC VBG pO2 Mixed VBG HCO3 Sodium Potassium Chloride Carbon Dioxide Anion Gap BUN Creatinine Creat Clearance w eGFR Random Glucose Lactic Acid Calcium Phosphorus 2.7 Magnesium 2.1 Total Bilirubin AST ALT Alkaline Phosphatase Troponin I Total Protein Albumin Urine Color Yellow Urine Appearance Slcloudy Urine pH 7.0 Ur Specific Power 1.015 Urine Protein 1+ H Urine Glucose (UA) Negative Urine Ketones Negative Urine Blood Negative Urine Nitrite Negative Urine Bilirubin Negative Urine Urobilinogen Negative Ur Leukocyte Esterase Trace Urine WBC (Auto) 3 Urine RBC (Auto) <1 Ur Epithelial Cells Rare Urine Bacteria Rare Hyaline Casts 7 Urine Mucus Few Problem List - Problems (1) Influenza A Code(s): J10.1 - FLU DUE TO OTH IDENT INFLUENZA VIRUS W OTH RESP MANIFEST (2) Fever Code(s): R50.9 - FEVER, UNSPECIFIED (3) Breast cancer, left breast Code(s): C50.912 - MALIGNANT NEOPLASM OF UNSPECIFIED SITE OF LEFT FEMALE BREAST Qualifiers: Breast location: lower inner quadrant of breast Patient sex: female (4) Sepsis Code(s): A41.9 - SEPSIS, UNSPECIFIED ORGANISM Qualifiers: Sepsis type: sepsis due to unspecified organism Qualified Code(s): A41.9 - Sepsis, unspecified organism Assessment/Plan ASSESS: This is a 67 y/o woman w/ HTN, GERD, & Stage 4 metastatic breast CA on Chemo & XRT admitted now w/ a Flu + PNA in the setting of leukopenia. PLAN: Broad ABX per ID Tamiflu BD TX O2 as needed Follow cultures Pain control SCDs Oncology followup: may need Shelia Beltre Critical care time spent in reviewing chart, evaluating patient and formulating plan - 36 minutes.
[2017-07-05] MEDS: FAMOTIDINE 20 MG/50 ML IVPB 20 MG/50 ML MG IVPB SCH ×2 (09:34→21:52)
[2017-07-05] MEDS: OSELTAMIVIR PHOSPHATE 75 MG CAPSULE PO SCH ×2 (09:36→21:52)
[2017-07-05] MEDS: MUPIROCIN 2% TOPICAL OINTMENT FOR DECOLONIZATION NS SCH (09:37)
[2017-07-05 09:43] LABS: ANISOCYTOSIS 1+; PLATELET ESTIMATE NORMAL
[2017-07-05] MEDS ORDERED: CEFEPIME 2 GM in DEXTROSE 5%-WATER - 100 ML IVPB SCH (10:00)
[2017-07-05] MEDS ORDERED: VANCOMYCIN 1,000 MG in DEXTROSE 5%-WATER - 250 ML IVPB ONE (10:00)
[2017-07-05] MEDS ORDERED: PIPERACILLIN/TAZOB 4.5 GM/100 ML PREMIX BAG IVPB SCH (10:00)
[2017-07-05] MEDS: CEFEPIME HCL/D5W 2 GM/50 ML BAG IVPB SCH ×2 (12:12→18:37)
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
--- NOTE | 2017-07-05 13:43 | PN ---
Progress Note (short form) - Note Progress Note: Patient with metastatic breast cancer, receiving systemic chemotherapy, (last Taxol 07/01) with fevers last 2 days, started oral Abics on 07/03, but with dyspnea and persistent high fevers yesterday, asked to come to ER to assess for possible FN. Temp 103 in ER, and concern about new hypotension, admitted to ICU for observation and initiation of IV Abics. Influenza A positive. Tamiflu initiated. Patient feeling better this am. Afebrile, but still hypotensive. Meds reviewed. Current Medications Generic Name Dose Route Start Last Admin Trade Name Freq PRN Reason Stop Dose Admin Acetaminophen 650 mg 07/04/17 23:27 Tylenol - PO Q4H PRN FEVER Al Hydroxide/Mg Hydroxide 30 ml 07/05/17 05:56 Mylanta Oral Suspension - PO Q6H PRN DYSPEPSIA Albuterol Sulfate 1 amp 07/04/17 23:34 07/05/17 07:13 Ventolin 0.083% Nebulizer Soln - NEB 1 amp Q4H PRN Administration SHORT OF BREATH/WHEEZING Alprazolam 0.25 mg 07/04/17 23:28 Xanax - PO Q8H PRN ANXIETY Chlorhexidine Gluconate 1 applic 07/05/17 22:00 Hibiclens For Decolonization - TP HS CARTER Sodium Chloride 1,000 mls @ 100 mls/hr 07/04/17 23:30 07/05/17 09:29 Normal Saline - IV 100 mls/hr ASDIR CARTER Administration Famotidine/Sodium Chloride 20 mg in 50 mls @ 100 mls/hr 07/05/17 10:00 09:34 Pepcid 20 Mg Premixed Ivpb - IVPB 100 mls/hr BID CARTER Administration Cefepime HCl 2 gm in 50 mls @ 200 mls/hr 07/05/17 10:00 07/05/17 12:12 Maxipime 2gm Ivpb (Premix) IVPB 200 mls/hr Q8H-IV CARTER Administration Protocol Mupirocin 1 applic 07/05/17 10:00 07/05/17 09:37 Bactroban Ointment (For Decolonization) - NS 07/10/17 09:59 1 applic BID CARTER Administration Oseltamivir Phosphate 75 mg 07/05/17 10:00 07/05/17 09:36 Tamiflu - PO 07/10/17 09:59 75 mg BID CARTER Administration On examination: Last Vital Signs Temp Pulse Resp BP Pulse Ox 98.8 F 88 22 99/49 98 07/05/17 08:00 07/05/17 08:00 07/05/17 08:00 07/05/17 08:00 07/05/17 08:29 General: Sitting in chair, comfortable. Extremities: No pallor, no icterus. Chest: Breathing comfortably, clear to auscultation. CVS: S1, S2, no gallop or murmur, Abdomen: Soft, non-tender, no masses or palpable organomegaly. Neuro: Alert, oriented, non-focal. Skin: intact, no rash CBC, BMP 07/05/17 05:15 07/04/17 20:20 Assessment: High fevers/hypotension, within a week of cytotoxic chemotherapy. Influenza A positive. Not neutropenic at time of initiation of fever, but is now - appropriate to treat empirically as one would FN, pending negative cultures. Agree with broad- spectrum Abics. No role for G-CSF, but would not unreasonable - consider if ANC <1000 tomorrow.
[2017-07-05] MEDS ORDERED: VANCOMYCIN 1,000 MG in DEXTROSE 5%-WATER - 250 ML IVPB SCH (22:00)
[2017-07-05] MEDS ORDERED: CHLORHEXIDINE GLUCONATE 4% CLEANSER FOR DECOLONIZATION TP SCH (22:00)
--- NOTE | 2017-07-06 00:09 | EKG ---
Test Reason : Blood Pressure : / mmHG Vent. Rate : 092 BPM Atrial Rate : 092 BPM P-R Int : 122 ms QRS Dur : 086 ms QT Int : 352 ms P-R-T Axes : 045 042 054 degrees QTc Int : 435 ms NORMAL SINUS RHYTHM NORMAL ECG WHEN COMPARED WITH ECG OF 30-MAY-2017 10:09, NO SIGNIFICANT CHANGE WAS FOUND Confirmed by MAXIMILIANO ARGUETA MD ([id number]) on 07/06/2017 12:09:03 AM Referred By: Confirmed By:MAXIMILIANO ARGUETA MD
[2017-07-06] MEDS: CEFEPIME HCL/D5W 2 GM/50 ML BAG IVPB SCH ×3 (01:34→20:00)
[2017-07-06] MEDS: MUPIROCIN 2% TOPICAL OINTMENT FOR DECOLONIZATION NS SCH ×2 (01:35→09:22)
[2017-07-06] MEDS: SODIUM CHLORIDE 1,000 ML IV SCH (01:35)
[2017-07-06 06:43] LABS: ALBUMIN 2.8 g/dl (3.4-5.0); ANION GAP 8 (8-16); BLOOD UREA NITROGEN 5 mg/dL (7-18); CALCIUM 7.2 mg/dL (8.5-10.1); CHLORIDE 107 mmol/L (98-107); CO2 26 mmol/L (21-32); GLUCOSE,RANDOM 96 mg/dL (74-106); MAGNESIUM 2.4 mg/dL (1.8-2.4); SODIUM 141 mmol/L (136-145)
[2017-07-06 06:47] LABS: ALK PHOS 64 U/L (45-117); BILIRUBIN,TOTAL 0.6 mg/dL (0.2-1.0); CREATININE 0.6 mg/dL (0.55-1.02); PHOSPHOROUS 1.8 mg/dL (2.5-4.9); SGOT/AST 14 U/L (15-37); SGPT/ALT 29 U/L (12-78); TOT PROT 5.2 g/dl (6.4-8.2)
[2017-07-06 06:59] LABS: HEMATOCRIT 25.8 % (32.4-45.2); MEAN CELL VOLUME 85.6 fl (80-96); PLATELET COUNT 203 K/MM3 (134-434); RBC 3.01 M/mm3 (3.60-5.2); RDW 14.9 % (11.6-15.6)
[2017-07-06 07:00] LABS: WHITE BLOOD COUNT 1.1 K/mm3 (4.0-10.0)
--- NOTE | 2017-07-06 08:32 | PN ---
Progress Note, Physician Chief Complaint: ID Oseltamavir & Cefepime Subjective improvement and resolution of fever - Current Medication List Current Medications: Active Medications Acetaminophen (Tylenol -) 650 mg PO Q4H PRN PRN Reason: FEVER Al Hydroxide/Mg Hydroxide (Mylanta Oral Suspension -) 30 ml PO Q6H PRN PRN Reason: DYSPEPSIA Albuterol Sulfate (Ventolin 0.083% Nebulizer Soln -) 1 amp NEB Q4H PRN PRN Reason: SHORT OF BREATH/WHEEZING Last Admin: 07/05/17 07:13 Dose: 1 amp Alprazolam (Xanax -) 0.25 mg PO Q8H PRN PRN Reason: ANXIETY Last Admin: 07/05/17 21:51 Dose: 0.25 mg Chlorhexidine Gluconate (Hibiclens For Decolonization -) 1 applic TP HS [facility] Last Admin: 07/06/17 01:35 Dose: 1 applic Sodium Chloride (Normal Saline -) 1,000 mls @ 100 mls/hr IV ASDIR CARTER Last Admin: 07/06/17 01:35 Dose: 100 mls/hr Famotidine/Sodium Chloride (Pepcid 20 Mg Premixed Ivpb -) 20 mg in 50 mls @ 100 mls/hr IVPB BID [facility] Last Admin: 07/05/17 21:52 Dose: 100 mls/hr Cefepime HCl (Maxipime 2gm Ivpb (Premix)) 2 gm in 50 mls @ 200 mls/hr IVPB Q8H- IV CARTER PRN Reason: Protocol Last Admin: 07/06/17 01:34 Dose: 200 mls/hr Mupirocin (Bactroban Ointment (For Decolonization) -) 1 applic NS BID [facility] Stop: 07/10/17 09:59 Last Admin: 07/06/17 01:35 Dose: 1 applic Oseltamivir Phosphate (Tamiflu -) 75 mg PO BID [facility] Stop: 07/10/17 09:59 Last Admin: 07/05/17 21:52 Dose: 75 mg - Objective Vital Signs: Vital Signs Temperature 98.5 F 07/06/17 02:00 Pulse Rate 81 07/06/17 06:00 Respiratory Rate 12 07/06/17 06:00 Blood Pressure 102/54 07/06/17 06:00 O2 Sat by Pulse Oximetry (%) 98 07/05/17 20:43 Constitutional: Yes: Well Nourished, No Distress Neck: Yes: WNL, Supple Cardiovascular: Yes: S1, S2 Respiratory: Yes: WNL, Regular, CTA Bilaterally. No: Rales, Rhonchi Gastrointestinal: Yes: WNL, Normal Bowel Sounds, Soft. No: Tenderness, Tenderness, Epigastrium Edema: No Labs: CBC, BMP 07/06/17 05:12 07/06/17 05:12 INR, PTT INR 1.18 (0.82-1.09) H 07/04/17 20:20 Problem List - Problems (1) Metastatic breast cancer Code(s): C50.919 - MALIGNANT NEOPLASM OF UNSP SITE OF UNSPECIFIED FEMALE BREAST (2) Influenza A Code(s): J10.1 - FLU DUE TO OTH IDENT INFLUENZA VIRUS W OTH RESP MANIFEST Assessment/Plan Microbiology 07/04/17 21:10 Nasopharyngeal Swab Influenza Types A,B Antigen (VICKI) - Final 07/04/17 21:10 Nasopharyngeal Swab - Final 07/04/17 20:20 Blood - Peripheral Venous Blood Culture - Preliminary NO GROWTH OBTAINED AFTER 24 HOURS, INCUBATION TO CONTINUE FOR 4 DAYS. Laboratory Tests 07/06/17 05:12 WBC 1.1 L* D Hgb 9.0 L Hct 25.8 L Plt Count 203 Assessment Neutropenic febrile patient Influenza A Metastatic Breast CA post chemotherapy Plan Continue Cefepime and Tamiflu Doing well Give Jose Moe MD
[2017-07-06] MEDS: FAMOTIDINE 20 MG/50 ML IVPB 20 MG/50 ML MG IVPB SCH ×2 (09:21→23:45)
[2017-07-06] MEDS: OSELTAMIVIR PHOSPHATE 75 MG CAPSULE PO SCH ×2 (09:21→23:45)
[2017-07-06] MEDS ORDERED: NAPH,MB-DB/K PH,MBDB POWDER PACKET PO SCH (10:00)
--- NOTE | 2017-07-06 12:17 | PN ---
Teaching Attending Note Name of Resident: Yaquelin Alvarado ATTENDING PHYSICIAN STATEMENT I saw and evaluated the patient. I reviewed the resident's note and discussed the case with the resident. I agree with the resident's findings and plan as documented. SUBJECTIVE: Patient seen and examined in the ICU. Awake and alert. Denies CP or SOB. Breathing feels better. Had worsening of dry cough overnight, but now better. Noted WBC. Intake & Output 07/03/17 07/04/17 07/05/17 07/06/17 23:59 23:59 23:59 23:59 Intake Total 800 3890 920 Balance 800 3890 920 Weight 149 lb 4 oz 149 lb 4 oz 149 lb 6.4 oz Last Vital Signs Temp Pulse Resp BP Pulse Ox 98.4 F 81 20 134/97 98 07/06/17 10:00 07/06/17 10:00 07/06/17 10:00 07/06/17 10:00 07/06/17 09:00 Active Medications Acetaminophen (Tylenol -) 650 mg PO Q4H PRN PRN Reason: FEVER Al Hydroxide/Mg Hydroxide (Mylanta Oral Suspension -) 30 ml PO Q6H PRN PRN Reason: DYSPEPSIA Albuterol Sulfate (Ventolin 0.083% Nebulizer Soln -) 1 amp NEB Q4H PRN PRN Reason: SHORT OF BREATH/WHEEZING Last Admin: 07/05/17 07:13 Dose: 1 amp Alprazolam (Xanax -) 0.25 mg PO Q8H PRN PRN Reason: ANXIETY Last Admin: 07/05/17 21:51 Dose: 0.25 mg Chlorhexidine Gluconate (Hibiclens For Decolonization -) 1 applic TP HS CARTER Last Admin: 07/06/17 01:35 Dose: 1 applic Sodium Chloride (Normal Saline -) 1,000 mls @ 100 mls/hr IV ASDIR CARTER Last Admin: 07/06/17 01:35 Dose: 100 mls/hr Famotidine/Sodium Chloride (Pepcid 20 Mg Premixed Ivpb -) 20 mg in 50 mls @ 100 mls/hr IVPB BID CARTER Last Admin: 07/06/17 09:21 Dose: 100 mls/hr Cefepime HCl (Maxipime 2gm Ivpb (Premix)) 2 gm in 50 mls @ 200 mls/hr IVPB Q8H- IV CARTER PRN Reason: Protocol Last Admin: 07/06/17 09:21 Dose: 200 mls/hr Mupirocin (Bactroban Ointment (For Decolonization) -) 1 applic NS BID CARTER Stop: 07/10/17 09:59 Last Admin: 07/06/17 09:22 Dose: 1 applic Oseltamivir Phosphate (Tamiflu -) 75 mg PO BID CARTER Stop: 07/10/17 09:59 Last Admin: 07/06/17 09:21 Dose: 75 mg Potassium Phos/Sodium Phos (Phos-Nak Packet -) 1 packet PO BID CARTER Last Admin: 07/06/17 09:21 Dose: 1 packet Tbo-Filgrastim (Granix -) 480 mcg SQ ONCE ONE Stop: 07/06/17 11:59 Constitutional: Yes: Awake and alert, NAD Eyes: Yes: WNL, Conjunctiva Clear, EOM Intact HENT: Yes: WNL, Atraumatic, Normocephalic Neck: Yes: WNL, Supple, Trachea Midline Cardiovascular: Yes: WNL, Regular Rate and Rhythm Respiratory: Yes: On RA, Clear Gastrointestinal: Yes: WNL, Normal Bowel Sounds, Soft, Abdomen, Obese ...Rectal Exam: Yes: Deferred Renal/: Yes: WNL Breast(s): Yes: WNL Musculoskeletal: Yes: WNL Extremities: Yes: WNL Edema: No Peripheral Pulses WNL: Yes Integumentary: Yes: WNL Neurological: Yes: WNL, Alert, Oriented ...Motor Strength: WNL Psychiatric: Yes: WNL, Alert, Oriented Labs: Laboratory Results - last 24 hr 07/06/17 07/06/17 05:12 05:12 WBC 1.1 L* D RBC 3.01 L Hgb 9.0 L Hct 25.8 L MCV 85.6 MCH 30.0 MCHC 35.0 RDW 14.9 Plt Count 203 MPV 8.0 Total Counted 100 Neutrophils % No Result Required. Neutrophils % (Manual) 52.0 Band Neutrophils % 6.0 Lymphocytes % No Result Required. Lymphocytes % (Manual) 24.0 Monocytes % (Manual) 8 Eosinophils % (Manual) 6.0 H D Basophils % (Manual) 4.0 H Sodium 141 Potassium 4.0 Chloride 107 Carbon Dioxide 26 Anion Gap 8 BUN 5 L Creatinine 0.6 Creat Clearance w eGFR > 60 Random Glucose 96 Calcium 7.2 L Phosphorus 1.8 L Magnesium 2.4 Total Bilirubin 0.6 D AST 14 L ALT 29 Alkaline Phosphatase 64 Total Protein 5.2 L Albumin 2.8 L Problem List - Problems (1) Influenza A Code(s): J10.1 - FLU DUE TO OTH IDENT INFLUENZA VIRUS W OTH RESP MANIFEST (2) Fever Code(s): R50.9 - FEVER, UNSPECIFIED (3) Breast cancer, left breast Code(s): C50.912 - MALIGNANT NEOPLASM OF UNSPECIFIED SITE OF LEFT FEMALE BREAST Qualifiers: Breast location: lower inner quadrant of breast Patient sex: female (4) Sepsis Code(s): A41.9 - SEPSIS, UNSPECIFIED ORGANISM Qualifiers: Sepsis type: sepsis due to unspecified organism Qualified Code(s): A41.9 - Sepsis, unspecified organism Assessment/Plan ASSESS: This is a 67 y/o woman w/ HTN, GERD, & Stage 4 metastatic breast CA on Chemo & XRT admitted now w/ a Flu + PNA in the setting of leukopenia. PLAN: Broad ABX per ID Tamiflu BD TX O2 as needed Follow cultures Pain control SCDs Oncology followup: BERNICE Bass [address] Dr [place]re Critical care time spent in reviewing chart, evaluating patient and formulating plan - 36 minutes.
[2017-07-06] MEDS ORDERED: MAG HYDROX/AL HYDROX/SIMETH 30 ML UNIT-DOSE CUP PO PRN (12:46)
[2017-07-06] MEDS ORDERED: ALBUTEROL SO4 0.083% IH SOL 2.5 MG/3 ML VIAL.NEB. NEB PRN (12:46)
[2017-07-06] MEDS ORDERED: SODIUM CHLORIDE 1,000 ML IV SCH (12:46)
[2017-07-06] MEDS ORDERED: ALPRAZolam 0.25 MG TABLET PO PRN (12:46)
[2017-07-06] MEDS ORDERED: ACETAMINOPHEN 325 MG TABLET (FP) PO PRN (12:46)
--- NOTE | 2017-07-06 13:36 | PN ---
Physical Exam: SUBJECTIVE: Patient seen and examined in the ICU. Pt reports continued cough, sans sputum/phlegm. Pt denies fever, chills, chest pain, sob, abdominal pain. OBJECTIVE: Vital Signs Period Temp Pulse Resp BP Sys/Nuñez Pulse Ox Last 24 Hr 98.4 F-98.8 F 78-100 12-20 88-136/49-97 98-98 GENERAL: The patient is awake, alert, and fully oriented, in no acute distress. LUNGS: Breath sounds equal, clear to auscultation bilaterally, no wheezes, no crackles, no accessory muscle use. HEART: Regular rate and rhythm, S1, S2 without murmur, rub or gallop. ABDOMEN: Soft, nontender, nondistended, no guarding. EXTREMITIES: Warm, well-perfused, no edema. NEUROLOGICAL: Cranial nerves II through XII grossly intact. Normal speech, gait not observed. PSYCH: Normal mood, normal affect. SKIN: Warm, dry, normal turgor, no rashes or lesions noted Laboratory Results - last 24 hr 07/06/17 07/06/17 05:12 05:12 WBC 1.1 L* D RBC 3.01 L Hgb 9.0 L Hct 25.8 L MCV 85.6 MCH 30.0 MCHC 35.0 RDW 14.9 Plt Count 203 MPV 8.0 Total Counted 100 Neutrophils % No Result Required. Neutrophils % (Manual) 52.0 Band Neutrophils % 6.0 Lymphocytes % No Result Required. Lymphocytes % (Manual) 24.0 Monocytes % (Manual) 8 Eosinophils % (Manual) 6.0 H D Basophils % (Manual) 4.0 H Sodium 141 Potassium 4.0 Chloride 107 Carbon Dioxide 26 Anion Gap 8 BUN 5 L Creatinine 0.6 Creat Clearance w eGFR > 60 Random Glucose 96 Calcium 7.2 L Phosphorus 1.8 L Magnesium 2.4 Total Bilirubin 0.6 D AST 14 L ALT 29 Alkaline Phosphatase 64 Total Protein 5.2 L Albumin 2.8 L Active Medications Generic Name Dose Route Start Last Admin Trade Name Freq PRN Reason Stop Dose Admin Acetaminophen 650 mg 07/06/17 12:46 Tylenol - PO Q4H PRN FEVER Al Hydroxide/Mg Hydroxide 30 ml 07/06/17 12:46 Mylanta Oral Suspension - PO Q6H PRN DYSPEPSIA Albuterol Sulfate 1 amp 07/06/17 12:46 Ventolin 0.083% Nebulizer Soln - NEB Q4H PRN SHORT OF BREATH/WHEEZING Alprazolam 0.25 mg 07/06/17 12:46 Xanax - PO Q8H PRN ANXIETY Cefepime HCl 2 gm in 50 mls @ 100 mls/hr 07/06/17 18:00 Maxipime 2gm Ivpb (Premix) IVPB Q8H-IV CARTER Protocol Famotidine/Sodium Chloride 20 mg in 50 mls @ 100 mls/hr 07/06/17 22:00 Pepcid 20 Mg Premixed Ivpb - IVPB BID CARTER Sodium Chloride 1,000 mls @ 100 mls/hr 07/06/17 12:46 Normal Saline - IV ASDIR CARTER Oseltamivir Phosphate 75 mg 07/06/17 22:00 Tamiflu - PO 07/10/17 09:59 BID CARTER Potassium Phos/Sodium Phos 1 packet 07/06/17 22:00 Phos-Nak Packet - PO BID CARTER Tbo-Filgrastim 480 mcg 07/06/17 11:58 Granix - SQ 07/06/17 11:59 ONCE ONE ASSESSMENT/PLAN: 67F with PMH of Stage 4 Breast Ca with mets to spine/femur (on chemotherapy, last dose 07/03/17), htn, GERD, anxiety, presents with fever and cough, admitted for sepsis. # sepsis 2/2 influenza A - neutrapenia noted - Onc (Dr. Galvan) recs appreciated: Granix 480mcg SQ once ordered - pt has remained afebrile since initial admission - Tylenol prn for fever - ID (Bobde) recs appreciated: Day 2 IV Cefepime - Day 2 Tamiflu - nebulizers prn - O2 prn - blood culture (-) x 24 hrs - urine culture (-) # breast ca - Dr. Galvan is pt's oncologist - f/u outpatient # anxiety - continue home med of Xanax prn # hypophosphatemia - repleted with Phos-NaK packets # FEN - Fluids: NS @ 100 ml/hr - Electrolytes: hypophosphatemia noted, continue to monitor - Nutrition: regular diet # prophylaxis - DVT ppx with dolly SCDs - GI ppx with Famotidine IVPB BID # dispo - stable for transfer to 7[facility] Visit type - Emergency Visit Emergency Visit: Yes ED Registration Date: 07/04/17 Care time: The patient presented to the Emergency Department on the above date and was hospitalized for further evaluation of their emergent condition. - New Patient This patient is new to me today: Yes Date on this admission: 07/06/17 - Critical Care Critical Care patient: Yes Total Critical Care Time (in minutes): 40 Critical Care Statement: The care of this patient involved high complexity decision making to prevent further life threatening deterioration of the patient 's condition and/or to evaluate & treat vital organ system(s) failure or risk of failure.
[2017-07-06] MEDS ORDERED: TBO-FILGRASTIM 480 MCG/0.8 ML DISP.SYRIN SQ ONE (14:00)
[2017-07-06] MEDS ORDERED: PT OWN MED DRAWER 7, Y5N ONE (17:44)
--- NOTE | 2017-07-06 22:31 | PN ---
Progress Note (short form) - Note Progress Note: Patient seen and examined feels better Last Vital Signs Temp Pulse Resp BP Pulse Ox 98.2 F 97 H 20 164/75 98 07/06/17 20:36 07/06/17 20:36 07/06/17 20:36 07/06/17 20:36 07/06/17 09:00 Cor: RSR, No murmurs, No gallops Lungs: Clear to P&A Abd: Soft, Normal bowel sounds, No organomegaly Ext:No significant edema Abnormal Lab Results 07/06/17 07/06/17 05:12 05:12 WBC 1.1 L* D RBC 3.01 L Hgb 9.0 L Hct 25.8 L Eosinophils % (Manual) 6.0 H D Basophils % (Manual) 4.0 H BUN 5 L Calcium 7.2 L Phosphorus 1.8 L AST 14 L Total Protein 5.2 L Albumin 2.8 L Active Medications Generic Name Dose Route Start Last Admin Trade Name Freq PRN Reason Stop Dose Admin Acetaminophen 650 mg 07/06/17 12:46 Tylenol - PO Q4H PRN FEVER Al Hydroxide/Mg Hydroxide 30 ml 07/06/17 12:46 Mylanta Oral Suspension - PO Q6H PRN DYSPEPSIA Albuterol Sulfate 1 amp 07/06/17 12:46 Ventolin 0.083% Nebulizer Soln - NEB Q4H PRN SHORT OF BREATH/WHEEZING Alprazolam 0.25 mg 07/06/17 12:46 07/06/17 23:55 Xanax - PO 0.25 mg Q8H PRN Administration ANXIETY Cefepime HCl 2 gm in 50 mls @ 100 mls/hr 07/06/17 18:00 07/06/17 20:00 Maxipime 2gm Ivpb (Premix) IVPB 100 mls/hr Q8H-IV CARTER Administration Protocol Famotidine/Sodium Chloride 20 mg in 50 mls @ 100 mls/hr 07/06/17 22:00 23:45 Pepcid 20 Mg Premixed Ivpb - IVPB 100 mls/hr BID ACRTER Administration Oseltamivir Phosphate 75 mg 07/06/17 22:00 07/06/17 23:45 Tamiflu - PO 07/10/17 09:59 75 mg BID CARTER Administration Potassium Phos/Sodium Phos 1 packet 07/06/17 22:00 07/06/17 23:45 Phos-Nak Packet - PO 1 packet BID CARTER Administration A/P 67 y/o patient with metastatic breast cancer, on taxol/RT influenza A neutropenia--? influenza vs chemotx for a dose of granix today
[2017-07-06] MEDS: NAPH,MB-DB/K PH,MBDB POWDER PACKET PO SCH (23:45)
[2017-07-07] MEDS: CEFEPIME HCL/D5W 2 GM/50 ML BAG IVPB SCH ×2 (02:49→10:34)
[2017-07-07 07:43] LABS: ANION GAP 9 (8-16); BLOOD UREA NITROGEN 8 mg/dL (7-18); CALCIUM 7.4 mg/dL (8.5-10.1); CHLORIDE 107 mmol/L (98-107); CO2 25 mmol/L (21-32); GLUCOSE,RANDOM 90 mg/dL (74-106); MAGNESIUM 1.9 mg/dL (1.8-2.4); POTASSIUM 4.1 mmol/L (3.5-5.1); SODIUM 141 mmol/L (136-145)
[2017-07-07 07:44] LABS: CREATININE 0.7 mg/dL (0.55-1.02); PHOSPHOROUS 2.7 mg/dL (2.5-4.9)
[2017-07-07 07:54] LABS: EOS % 3.7 % (0-4.5); HEMATOCRIT 25.1 % (32.4-45.2); HEMOGLOBIN 8.7 GM/dL (10.7-15.3); LYMPH % 14.3 % (8-40); MCH 29.6 pg (25.7-33.7); MCHC 34.5 g/dl (32.0-36.0); MEAN CELL VOLUME 85.6 fl (80-96); MEAN PLT VOLUME 7.9 fl (7.5-11.1); MONO % 10.6 % (3.8-10.2); NEUT % 70.4 % (42.8-82.8); PLATELET COUNT 160 K/MM3 (134-434); RBC 2.94 M/mm3 (3.60-5.2); RDW 14.6 % (11.6-15.6); WHITE BLOOD COUNT 4.7 K/mm3 (4.0-10.0)
--- NOTE | 2017-07-07 10:07 | PN ---
Progress Note (short form) - Note Progress Note: PULMONARY States she feels better, less short of breath. +nonproductive cough. No further fevers. Last Vital Signs Temp Pulse Resp BP Pulse Ox 98.7 F 80 20 115/61 98 07/07/17 06:00 07/07/17 06:00 07/07/17 06:00 07/07/17 06:00 07/06/17 21:00 Gen: NAD at rest Heart: RRR Lung: rare wheeze Abd: soft, nontender Ext: no edema CBC, BMP 07/07/17 05:30 07/07/17 05:30 Active Medications Acetaminophen (Tylenol -) 650 mg PO Q4H PRN PRN Reason: FEVER Al Hydroxide/Mg Hydroxide (Mylanta Oral Suspension -) 30 ml PO Q6H PRN PRN Reason: DYSPEPSIA Albuterol Sulfate (Ventolin 0.083% Nebulizer Soln -) 1 amp NEB Q4H PRN PRN Reason: SHORT OF BREATH/WHEEZING Alprazolam (Xanax -) 0.25 mg PO Q8H PRN PRN Reason: ANXIETY Last Admin: 07/06/17 23:55 Dose: 0.25 mg Cefepime HCl (Maxipime 2gm Ivpb (Premix)) 2 gm in 50 mls @ 100 mls/hr IVPB Q8H- IV CARTER PRN Reason: Protocol Last Admin: 07/07/17 02:49 Dose: 100 mls/hr Famotidine/Sodium Chloride (Pepcid 20 Mg Premixed Ivpb -) 20 mg in 50 mls @ 100 mls/hr IVPB BID CARTER Last Admin: 07/06/17 23:45 Dose: 100 mls/hr Oseltamivir Phosphate (Tamiflu -) 75 mg PO BID [facility] Stop: 07/10/17 09:59 Last Admin: 07/06/17 23:45 Dose: 75 mg Potassium Phos/Sodium Phos (Phos-Nak Packet -) 1 packet PO BID CARTER Last Admin: 07/06/17 23:45 Dose: 1 packet A/P Influenza A Neutropenic Sepsis resolving Metastatic Breast Ca on chemo/RT HTN GERD - antibiotics per ID - tamiflu - will make albuterol standing and PRN - O2 as needed - monitor CBC - DVT prophylaxis
--- NOTE | 2017-07-07 10:14 | PN ---
Progress Note (short form) - Note Progress Note: late note entry for 07/06/17 patient was seen yesterday Comfortable Continue to improve Vitals were stable Labs reviewed On examination Alert and awake Lungs --diminished at bases CVS--heart sounds regular Abdomen--soft Extremities--no edema Neuro--alert and awake Assessment and plan Clinically better continue present care Droplet neutropenic precautions Follow-up cultures Broad spectrum antibiotics. Will follow
[2017-07-07] MEDS ORDERED: PT OWN MED DRAWER 7, Y5N ONE (10:30)
[2017-07-07] MEDS: OSELTAMIVIR PHOSPHATE 75 MG CAPSULE PO SCH ×2 (10:34→21:59)
[2017-07-07] MEDS: NAPH,MB-DB/K PH,MBDB POWDER PACKET PO SCH ×2 (10:34→21:59)
[2017-07-07] MEDS: FAMOTIDINE 20 MG/50 ML IVPB 20 MG/50 ML MG IVPB SCH (11:02)
--- NOTE | 2017-07-07 12:44 | PN ---
Progress Note, Physician Chief Complaint: Events noted Family at bedside Feels well better appetite no chest pain ,cough, body aches - Current Medication List Current Medications: Active Medications Acetaminophen (Tylenol -) 650 mg PO Q4H PRN PRN Reason: FEVER Al Hydroxide/Mg Hydroxide (Mylanta Oral Suspension -) 30 ml PO Q6H PRN PRN Reason: DYSPEPSIA Albuterol Sulfate (Ventolin 0.083% Nebulizer Soln -) 1 amp NEB Q4H PRN PRN Reason: SHORT OF BREATH/WHEEZING Albuterol/Ipratropium (Duoneb -) 1 amp NEB RTID CARTER Alprazolam (Xanax -) 0.25 mg PO Q8H PRN PRN Reason: ANXIETY Last Admin: 07/06/17 23:55 Dose: 0.25 mg Cefepime HCl (Maxipime 2gm Ivpb (Premix)) 2 gm in 50 mls @ 100 mls/hr IVPB Q8H- IV CARTER PRN Reason: Protocol Last Admin: 07/07/17 10:34 Dose: 100 mls/hr Famotidine/Sodium Chloride (Pepcid 20 Mg Premixed Ivpb -) 20 mg in 50 mls @ 100 mls/hr IVPB BID [facility] Last Admin: 07/07/17 11:02 Dose: 100 mls/hr Oseltamivir Phosphate (Tamiflu -) 75 mg PO BID [facility] Stop: 07/10/17 09:59 Last Admin: 07/07/17 10:34 Dose: 75 mg Potassium Phos/Sodium Phos (Phos-Nak Packet -) 1 packet PO BID [facility] Last Admin: 07/07/17 10:34 Dose: 1 packet - Objective Vital Signs: Vital Signs Temperature 98.7 F 07/07/17 06:00 Pulse Rate 80 07/07/17 06:00 Respiratory Rate 20 07/07/17 06:00 Blood Pressure 115/61 07/07/17 06:00 O2 Sat by Pulse Oximetry (%) 98 07/06/17 21:00 Constitutional: Yes: No Distress, Calm Cardiovascular: Yes: Regular Rate and Rhythm Respiratory: Yes: CTA Bilaterally Gastrointestinal: Yes: Normal Bowel Sounds, Soft. No: Tenderness Edema: No Labs: CBC, BMP 07/07/17 05:30 07/07/17 05:30 INR, PTT INR 1.18 (0.82-1.09) H 07/04/17 20:20 Problem List - Problems (1) Neutropenic sepsis Code(s): A41.9 - SEPSIS, UNSPECIFIED ORGANISM; D70.9 - NEUTROPENIA, UNSPECIFIED (2) Influenza A Code(s): J10.1 - FLU DUE TO OTH IDENT INFLUENZA VIRUS W OTH RESP MANIFEST (3) Metastatic breast cancer Code(s): C50.919 - MALIGNANT NEOPLASM OF UNSP SITE OF UNSPECIFIED FEMALE BREAST (4) Sepsis Code(s): A41.9 - SEPSIS, UNSPECIFIED ORGANISM Qualifiers: Sepsis type: sepsis due to unspecified organism Qualified Code(s): A41.9 - Sepsis, unspecified organism (5) Breast cancer, left breast Code(s): C50.912 - MALIGNANT NEOPLASM OF UNSPECIFIED SITE OF LEFT FEMALE BREAST Qualifiers: Breast location: lower inner quadrant of breast Patient sex: female Assessment/Plan PLAN IV antibiotics per ID-- will need to know duration Tamiflu Encourage PO oob daily
--- NOTE | 2017-07-07 13:04 | PN ---
Progress Note, Physician History of Present Illness: Seated in bed Feeling better No c/o chest pain/ dyspnea/ cough No c/o bodyache No fever/ chills Temps down Afebrile WBC improved - Current Medication List Current Medications: Active Medications Acetaminophen (Tylenol -) 650 mg PO Q4H PRN PRN Reason: FEVER Al Hydroxide/Mg Hydroxide (Mylanta Oral Suspension -) 30 ml PO Q6H PRN PRN Reason: DYSPEPSIA Albuterol Sulfate (Ventolin 0.083% Nebulizer Soln -) 1 amp NEB Q4H PRN PRN Reason: SHORT OF BREATH/WHEEZING Albuterol/Ipratropium (Duoneb -) 1 amp NEB RTID CARTER Alprazolam (Xanax -) 0.25 mg PO Q8H PRN PRN Reason: ANXIETY Last Admin: 07/06/17 23:55 Dose: 0.25 mg Cefepime HCl (Maxipime 2gm Ivpb (Premix)) 2 gm in 50 mls @ 100 mls/hr IVPB Q8H- IV CARTER PRN Reason: Protocol Last Admin: 07/07/17 10:34 Dose: 100 mls/hr Oseltamivir Phosphate (Tamiflu -) 75 mg PO BID CARTER Stop: 07/10/17 09:59 Last Admin: 07/07/17 10:34 Dose: 75 mg Pantoprazole Sodium (Protonix -) 40 mg PO DAILY [facility] Potassium Phos/Sodium Phos (Phos-Nak Packet -) 1 packet PO BID CARTER Last Admin: 07/07/17 10:34 Dose: 1 packet - Objective Vital Signs: Vital Signs Temperature 98.7 F 07/07/17 06:00 Pulse Rate 80 07/07/17 06:00 Respiratory Rate 20 07/07/17 06:00 Blood Pressure 115/61 07/07/17 06:00 O2 Sat by Pulse Oximetry (%) 98 07/06/17 21:00 Constitutional: Yes: No Distress Eyes: Yes: Conjunctiva Clear Cardiovascular: Yes: Regular Rate and Rhythm, S1, S2 Respiratory: Yes: Rhonchi Gastrointestinal: Yes: Normal Bowel Sounds, Soft. No: Tenderness Edema: No Labs: CBC, BMP 07/07/17 05:30 07/07/17 05:30 INR, PTT INR 1.18 (0.82-1.09) H 07/04/17 20:20 Assessment/Plan Febrile neutropenia Acute influenza Metastatic breast ca Temps down WBC improved BC (-) May substitute po levaquin 500mg qd 3d Complete 5d course Tamiflu
[2017-07-07] MEDS: ALBUTEROL SO4 2.5/IPRATROPIUM 0.5 INH SOL 3 ML VIAL.NEB. NEB SCH ×2 (15:00→21:10)
--- NOTE | 2017-07-07 18:42 | PN ---
Progress Note (short form) - Note Progress Note: Patient seen and examined Last Vital Signs Temp Pulse Resp BP Pulse Ox 98.3 F 97 H 20 128/72 98 07/07/17 15:54 07/07/17 15:54 07/07/17 15:54 07/07/17 15:54 07/07/17 09:00 Clinically improved WBC up after neupogen. No rigors. Not bacteremic HEENT: GLADYS, EOM Intact Oropharynx: No thrush, No mucositis Neck: Supple Nodes: Without adenopathy Breasts: Without masses Cor: RSR, No murmurs, No gallops Lungs: Clear to P&A Abd: Soft, Normal bowel sounds, No organomegaly Ext:No significant edema Skin: No rashes, Integument intact CBC, BMP 07/07/17 05:30 07/07/17 05:30 Impression: Metastatic breast ca Influenza Anemia Neutropenia- corrected with neupogen Plans: Hold chemotherapy Per ID Office follow up
[2017-07-07] MEDS ORDERED: ZOLPIDEM TARTRATE 5 MG TABLET PO PRN (18:43)
[2017-07-07] MEDS ORDERED: ALBUTEROL SO4 18 GM HFA INHALER IH PRN (19:31)
--- NOTE | 2017-07-08 07:22 | PN ---
Progress Note (short form) - Note Progress Note: Patient seen and examined Bad night Did not sleep Complains of headache, shakiness, and reflux Last Vital Signs Temp Pulse Resp BP Pulse Ox 98.5 F 81 20 118/68 98 07/07/17 17:20 07/07/17 17:20 07/07/17 21:00 07/07/17 17:20 07/07/17 21:00 HEENT: GLADYS, EOM Intact Oropharynx: No thrush, No mucositis Breasts: Without masses Cor: RSR, No murmurs, No gallops Lungs: Clear to P&A Abd: Soft, Normal bowel sounds, No organomegaly Ext:No significant edema Skin: No rashes, Integument intact CBC, BMP 07/07/17 05:30 07/07/17 05:30 Current Medications Generic Name Dose Route Start Last Admin Trade Name Freq PRN Reason Stop Dose Admin Acetaminophen 650 mg 07/06/17 12:46 Tylenol - PO Q4H PRN FEVER Al Hydroxide/Mg Hydroxide 30 ml 07/06/17 12:46 07/08/17 06:15 Mylanta Oral Suspension - PO 30 ml Q6H PRN Administration DYSPEPSIA Albuterol Sulfate 2 puff 07/07/17 19:31 Ventolin Hfa Inhaler - IH Q4H PRN SHORTNESS OF BREATH Albuterol/Ipratropium 1 amp 07/07/17 14:00 07/07/17 21:10 Duoneb - NEB Not Given RTID CARTER Alprazolam 0.25 mg 07/06/17 12:46 07/06/17 23:55 Xanax - PO 0.25 mg Q8H PRN Administration ANXIETY Levofloxacin 500 mg 07/07/17 17:30 07/08/17 06:11 Levaquin - PO 500 mg DAILY@0600 CARTER Administration Oseltamivir Phosphate 75 mg 07/06/17 22:00 07/07/17 21:59 Tamiflu - PO 07/10/17 09:59 75 mg BID CARTER Administration Pantoprazole Sodium 40 mg 07/08/17 10:00 Protonix - PO DAILY CARTER Potassium Phos/Sodium Phos 1 packet 07/06/17 22:00 07/07/17 21:59 Phos-Nak Packet - PO 1 packet BID CARTER Administration Zolpidem Tartrate 5 mg 07/07/17 18:43 07/07/17 22:05 Ambien - PO 5 mg HS PRN Administration INSOMNIA Impression: Metastatic breast cancer Influenza Anemia GERD Pending patient status can be discharged if clinically stable for office follow up of chemotherapy and RT.
[2017-07-08] MEDS: ALBUTEROL SO4 2.5/IPRATROPIUM 0.5 INH SOL 3 ML VIAL.NEB. NEB SCH ×3 (07:28→20:41)
[2017-07-08 08:52] LABS: BASO % 0.9 % (0-2.0); EOS % 1.8 % (0-4.5); HEMATOCRIT 26.6 % (32.4-45.2); HEMOGLOBIN 9.4 GM/dL (10.7-15.3); LYMPH % 12.5 % (8-40); MCH 29.8 pg (25.7-33.7); MCHC 35.1 g/dl (32.0-36.0); MEAN CELL VOLUME 84.8 fl (80-96); MEAN PLT VOLUME 7.6 fl (7.5-11.1); MONO % 10.3 % (3.8-10.2); NEUT % 74.5 % (42.8-82.8); PLATELET COUNT 184 K/MM3 (134-434); RBC 3.14 M/mm3 (3.60-5.2); RDW 14.9 % (11.6-15.6); WHITE BLOOD COUNT 8.1 K/mm3 (4.0-10.0)
--- NOTE | 2017-07-08 09:12 | DS ---
Physical Examination Vital Signs: Vital Signs Temperature 98.6 F 07/08/17 06:00 Pulse Rate 100 H 07/08/17 06:00 Respiratory Rate 20 07/08/17 06:00 Blood Pressure 147/84 07/08/17 06:00 O2 Sat by Pulse Oximetry (%) 98 07/07/17 21:00 Constitutional: Yes: No Distress, Calm Cardiovascular: Yes: Regular Rate and Rhythm Respiratory: Yes: CTA Bilaterally Gastrointestinal: Yes: Normal Bowel Sounds, Soft. No: Tenderness Edema: No Labs: CBC, BMP 07/08/17 07:25 07/07/17 05:30 Discharge Summary Reason For Visit: INFLUENZA A SEPSIS Current Active Problems DVT prophylaxis (Acute) Influenza A (Acute) Metastatic breast cancer (Acute) Neutropenic sepsis (Acute) Sepsis (Acute) Condition: Improved - Instructions Referrals: Shay Galvan MD [Primary Care Provider] - Disposition: HOME - Home Medications Comprehensive Discharge Medication List: Ambulatory Orders Alprazolam [Xanax] 0.25 mg PO TID 05/30/17 Dexamethasone 4 mg PO ASDIR 05/30/17 Gabapentin 300 mg PO TID 05/30/17 Lisinopril/Hydrochlorothiazide [Lisinopril-Hctz 10-12.5 mg Tab] 1 each PO DAILY 05/30/17 Metoprolol Succinate [Toprol Xl] 25 mg PO DAILY 05/30/17 Tramadol HCl 50 mg PO PRN 05/30/17 Oseltamivir Phosphate [Tamiflu -] 75 mg PO BID #7 capsule 07/07/17 levoFLOXacin [Levaquin -] 500 mg PO DAILY@0600 #2 tablet 07/07/17
[2017-07-08] MEDS ORDERED: PT OWN MED DRAWER 7, Y5N ONE (09:37)
[2017-07-08] MEDS: PANTOPRAZOLE 40 MG TABLET (FP) PO SCH (09:54)
[2017-07-08] MEDS: NAPH,MB-DB/K PH,MBDB POWDER PACKET PO SCH ×2 (09:54→21:25)
[2017-07-08] MEDS: OSELTAMIVIR PHOSPHATE 75 MG CAPSULE PO SCH ×2 (09:54→21:24)
--- NOTE | 2017-07-08 10:50 | PN ---
Progress Note (short form) - Note Progress Note: PULMONARY Reports nausea and heartburn. Breathing improving. No further fevers. Last Vital Signs Temp Pulse Resp BP Pulse Ox 98.6 F 100 H 20 147/84 98 07/08/17 06:00 07/08/17 06:00 07/08/17 06:00 07/08/17 06:00 07/07/17 21:00 Gen: NAD at rest Heart: RRR Lung: decreased breath sounds at the bases, no wheezes Abd: soft, nontender Ext: no edema CBC, BMP 07/08/17 07:25 07/07/17 05:30 Active Medications Acetaminophen (Tylenol -) 650 mg PO Q4H PRN PRN Reason: FEVER Al Hydroxide/Mg Hydroxide (Mylanta Oral Suspension -) 30 ml PO Q6H PRN PRN Reason: DYSPEPSIA Last Admin: 07/08/17 06:15 Dose: 30 ml Albuterol Sulfate (Ventolin Hfa Inhaler -) 2 puff IH Q4H PRN PRN Reason: SHORTNESS OF BREATH Albuterol/Ipratropium (Duoneb -) 1 amp NEB RTID [facility] Last Admin: 07/08/17 07:28 Dose: Not Given Alprazolam (Xanax -) 0.25 mg PO Q8H PRN PRN Reason: ANXIETY Last Admin: 07/06/17 23:55 Dose: 0.25 mg Levofloxacin (Levaquin -) 500 mg PO DAILY@0600 [facility] Last Admin: 07/08/17 06:11 Dose: 500 mg Oseltamivir Phosphate (Tamiflu -) 75 mg PO BID [facility] Stop: 07/10/17 09:59 Last Admin: 07/08/17 09:54 Dose: 75 mg Pantoprazole Sodium (Protonix -) 40 mg PO DAILY [facility] Last Admin: 07/08/17 09:54 Dose: 40 mg Potassium Phos/Sodium Phos (Phos-Nak Packet -) 1 packet PO BID [facility] Last Admin: 07/08/17 09:54 Dose: 1 packet Zolpidem Tartrate (Ambien -) 5 mg PO HS PRN PRN Reason: INSOMNIA Last Admin: 07/07/17 22:05 Dose: 5 mg A/P Influenza A Neutropenic Sepsis resolving Metastatic Breast Ca on chemo/RT HTN GERD - antibiotics per ID - complete tamiflu - inhaled bronchodilators - O2 as needed - monitor CBC - DVT prophylaxis
[2017-07-08] MEDS ORDERED: ONDANSETRON 4 MG/2 ML VIAL IVPUSH ONE (11:30)
[2017-07-08] MEDS ORDERED: METOCLOPRAMIDE HCL INJECTION 10 MG/2 ML VIAL IVPUSH PRN (12:03)
[2017-07-08] MEDS: DEXTROSE 5%-0.45% SALINE 1,000 ML IV SCH (18:08)
--- NOTE | 2017-07-08 18:21 | PN ---
Progress Note, Physician Chief Complaint: nauseous today vomited today no diarrhea - Current Medication List Current Medications: Active Medications Acetaminophen (Tylenol -) 650 mg PO Q4H PRN PRN Reason: FEVER Al Hydroxide/Mg Hydroxide (Mylanta Oral Suspension -) 30 ml PO Q6H PRN PRN Reason: DYSPEPSIA Last Admin: 07/08/17 06:15 Dose: 30 ml Albuterol Sulfate (Ventolin Hfa Inhaler -) 2 puff IH Q4H PRN PRN Reason: SHORTNESS OF BREATH Albuterol/Ipratropium (Duoneb -) 1 amp NEB RTID [facility] Last Admin: 07/08/17 15:53 Dose: Not Given Alprazolam (Xanax -) 0.25 mg PO Q8H PRN PRN Reason: ANXIETY Last Admin: 07/06/17 23:55 Dose: 0.25 mg Dextrose/Sodium Chloride (D5-1/2ns -) 1,000 mls @ 75 mls/hr IV ASDIR [facility] Last Admin: 07/08/17 18:08 Dose: 75 mls/hr Levofloxacin (Levaquin -) 500 mg PO DAILY@0600 [facility] Last Admin: 07/08/17 06:11 Dose: 500 mg Metoclopramide HCl (Reglan Injection -) 10 mg IVPUSH Q6H PRN PRN Reason: NAUSEA AND/OR VOMITING Oseltamivir Phosphate (Tamiflu -) 75 mg PO BID [facility] Stop: 07/10/17 09:59 Last Admin: 07/08/17 09:54 Dose: 75 mg Pantoprazole Sodium (Protonix -) 40 mg PO DAILY [facility] Last Admin: 07/08/17 09:54 Dose: 40 mg Potassium Phos/Sodium Phos (Phos-Nak Packet -) 1 packet PO BID [facility] Last Admin: 07/08/17 09:54 Dose: 1 packet Zolpidem Tartrate (Ambien -) 5 mg PO HS PRN PRN Reason: INSOMNIA Last Admin: 07/07/17 22:05 Dose: 5 mg - Objective Vital Signs: Vital Signs Temperature 98.5 F 07/08/17 15:35 Pulse Rate 89 07/08/17 15:35 Respiratory Rate 20 07/08/17 15:35 Blood Pressure 125/59 07/08/17 15:35 O2 Sat by Pulse Oximetry (%) 96 07/08/17 09:00 Constitutional: Yes: No Distress Cardiovascular: Yes: Regular Rate and Rhythm Respiratory: Yes: CTA Bilaterally Gastrointestinal: Yes: Normal Bowel Sounds, Soft. No: Tenderness Edema: No Labs: CBC, BMP 07/08/17 07:25 07/07/17 05:30 INR, PTT INR 1.18 (0.82-1.09) H 07/04/17 20:20 Problem List - Problems (1) Neutropenic sepsis Code(s): A41.9 - SEPSIS, UNSPECIFIED ORGANISM; D70.9 - NEUTROPENIA, UNSPECIFIED (2) Influenza A Code(s): J10.1 - FLU DUE TO OTH IDENT INFLUENZA VIRUS W OTH RESP MANIFEST (3) Metastatic breast cancer Code(s): C50.919 - MALIGNANT NEOPLASM OF UNSP SITE OF UNSPECIFIED FEMALE BREAST (4) Sepsis Code(s): A41.9 - SEPSIS, UNSPECIFIED ORGANISM Qualifiers: Sepsis type: sepsis due to unspecified organism Qualified Code(s): A41.9 - Sepsis, unspecified organism (5) Breast cancer, left breast Code(s): C50.912 - MALIGNANT NEOPLASM OF UNSPECIFIED SITE OF LEFT FEMALE BREAST Qualifiers: Breast location: lower inner quadrant of breast Patient sex: female Assessment/Plan PLAN PO Levaquin Tamiflu start iv fluids to prevent dehydration as she is vomiting today-- likely side effects from Tamiflu Encourage PO oob daily
[2017-07-09] MEDS: DEXTROSE 5%-0.45% SALINE 1,000 ML IV SCH (06:38)
[2017-07-09] MEDS: ALBUTEROL SO4 2.5/IPRATROPIUM 0.5 INH SOL 3 ML VIAL.NEB. NEB SCH (08:46)
[2017-07-09] MEDS: NAPH,MB-DB/K PH,MBDB POWDER PACKET PO SCH (09:41)
[2017-07-09] MEDS: OSELTAMIVIR PHOSPHATE 75 MG CAPSULE PO SCH (09:41)
[2017-07-09] MEDS: PANTOPRAZOLE 40 MG TABLET (FP) PO SCH (09:41)
--- NOTE | 2017-07-09 10:12 | PN ---
Progress Note (short form) - Note Progress Note: PULMONARY Feels much improved. Denies shortness of breath or cough. No further fevers. Last Vital Signs Temp Pulse Resp BP Pulse Ox 98.0 F 73 20 110/65 96 07/09/17 06:00 07/09/17 06:00 07/09/17 06:00 07/09/17 06:00 07/08/17 21:00 Gen: NAD at rest Heart: RRR Lung: decreased breath sounds at the bases, no wheezes Abd: soft, nontender Ext: no edema CBC, BMP 07/08/17 07:25 07/07/17 05:30 Active Medications Acetaminophen (Tylenol -) 650 mg PO Q4H PRN PRN Reason: FEVER Al Hydroxide/Mg Hydroxide (Mylanta Oral Suspension -) 30 ml PO Q6H PRN PRN Reason: DYSPEPSIA Last Admin: 07/08/17 06:15 Dose: 30 ml Albuterol Sulfate (Ventolin Hfa Inhaler -) 2 puff IH Q4H PRN PRN Reason: SHORTNESS OF BREATH Albuterol/Ipratropium (Duoneb -) 1 amp NEB RTID [facility] Last Admin: 07/09/17 08:46 Dose: Not Given Alprazolam (Xanax -) 0.25 mg PO Q8H PRN PRN Reason: ANXIETY Last Admin: 07/06/17 23:55 Dose: 0.25 mg Dextrose/Sodium Chloride (D5-1/2ns -) 1,000 mls @ 75 mls/hr IV ASDIR [facility] Last Admin: 07/09/17 06:38 Dose: 75 mls/hr Levofloxacin (Levaquin -) 500 mg PO DAILY@0600 [facility] Last Admin: 07/09/17 06:34 Dose: 500 mg Metoclopramide HCl (Reglan Injection -) 10 mg IVPUSH Q6H PRN PRN Reason: NAUSEA AND/OR VOMITING Oseltamivir Phosphate (Tamiflu -) 75 mg PO BID [facility] Stop: 07/10/17 09:59 Last Admin: 07/09/17 09:41 Dose: 75 mg Pantoprazole Sodium (Protonix -) 40 mg PO DAILY [facility] Last Admin: 07/09/17 09:41 Dose: 40 mg Potassium Phos/Sodium Phos (Phos-Nak Packet -) 1 packet PO BID [facility] Last Admin: 07/09/17 09:41 Dose: 1 packet Zolpidem Tartrate (Ambien -) 5 mg PO HS PRN PRN Reason: INSOMNIA Last Admin: 07/07/17 22:05 Dose: 5 mg A/P Influenza A Neutropenic Sepsis resolving Metastatic Breast Ca on chemo/RT HTN GERD - antibiotics per ID - complete tamiflu - inhaled bronchodilators - O2 as needed - monitor CBC - DVT prophylaxis - d/c planning
--- NOTE | 2017-07-09 11:40 | PN ---
Progress Note (short form) - Note Progress Note: Pt seen and examined Much improved. denies SOB/Resp distress/fevers/cough O/E HEENT: GLADYS, EOM Intact Oropharynx: No thrush, No mucositis Breasts: Without masses Cor: RSR, No murmurs, No gallops Lungs: Clear to P&A Abd: Soft, Normal bowel sounds, No organomegaly Ext:No significant edema Skin: No rashes, Integument intact Last Vital Signs Temp Pulse Resp BP Pulse Ox 98.0 F 73 20 110/65 96 07/09/17 06:00 07/09/17 06:00 07/09/17 06:00 07/09/17 06:00 07/08/17 21:00 CBC, BMP 07/08/17 07:25 07/07/17 05:30 Current Medications Generic Name Dose Route Start Last Admin Trade Name Freq PRN Reason Stop Dose Admin Acetaminophen 650 mg 07/06/17 12:46 Tylenol - PO Q4H PRN FEVER Al Hydroxide/Mg Hydroxide 30 ml 07/06/17 12:46 07/08/17 06:15 Mylanta Oral Suspension - PO 30 ml Q6H PRN Administration DYSPEPSIA Albuterol Sulfate 2 puff 07/07/17 19:31 Ventolin Hfa Inhaler - IH Q4H PRN SHORTNESS OF BREATH Albuterol/Ipratropium 1 amp 07/07/17 14:00 07/09/17 08:46 Duoneb - NEB Not Given RTID [facility] Alprazolam 0.25 mg 07/06/17 12:46 07/06/17 23:55 Xanax - PO 0.25 mg Q8H PRN Administration ANXIETY Dextrose/Sodium Chloride 1,000 mls @ 75 mls/hr 07/08/17 12:15 07/09/17 06:38 D5-1/2ns - IV 75 mls/hr ASDIR [facility] Administration Levofloxacin 500 mg 07/07/17 17:30 07/09/17 06:34 Levaquin - PO 500 mg DAILY@0600 [facility] Administration Metoclopramide HCl 10 mg 07/08/17 12:03 Reglan Injection - IVPUSH Q6H PRN NAUSEA AND/OR VOMITING Oseltamivir Phosphate 75 mg 07/06/17 22:00 07/09/17 09:41 Tamiflu - PO 03/23/18 09:59 75 mg BID [facility] Administration Pantoprazole Sodium 40 mg 07/08/17 10:00 07/09/17 09:41 Protonix - PO 40 mg DAILY [facility] Administration Potassium Phos/Sodium Phos 1 packet 07/06/17 22:00 07/09/17 09:41 Phos-Nak Packet - PO 1 packet BID [facility] Administration Zolpidem Tartrate 5 mg 07/07/17 18:43 07/07/17 22:05 Ambien - PO 5 mg HS PRN Administration INSOMNIA Metastatic breast cancer Influenza Anemia GERD Dc planning for office follow up of chemotherapy and RT. Pt aware.
--- NOTE | 2017-07-09 11:55 | DS ---
Physical Examination Vital Signs: Vital Signs Temperature 98.0 F 07/09/17 06:00 Pulse Rate 73 07/09/17 06:00 Respiratory Rate 20 07/09/17 06:00 Blood Pressure 110/65 07/09/17 06:00 O2 Sat by Pulse Oximetry (%) 96 07/08/17 21:00 Constitutional: Yes: No Distress Cardiovascular: Yes: Regular Rate and Rhythm Respiratory: Yes: CTA Bilaterally Gastrointestinal: Yes: Normal Bowel Sounds, Soft. No: Tenderness Edema: No Labs: CBC, BMP 07/08/17 07:25 07/07/17 05:30 Discharge Summary Reason For Visit: INFLUENZA A SEPSIS Current Active Problems DVT prophylaxis (Acute) Influenza A (Acute) Metastatic breast cancer (Acute) Neutropenic sepsis (Acute) Sepsis (Acute) Hospital Course: Pt admitted for neutropenic sepsis, found to have influenza. s/p chemo for breast CA Seen by ID and oncology, Pulmonary Was on IV antibiotics and PO tamiflu Blood cultures negative Pt improving Stable for dc home Condition: Improved - Instructions Referrals: Shay Galvan MD [Primary Care Provider] - Disposition: HOME - Home Medications Comprehensive Discharge Medication List: Ambulatory Orders Alprazolam [Xanax] 0.25 mg PO TID 05/30/17 Dexamethasone 4 mg PO ASDIR 05/30/17 Gabapentin 300 mg PO TID 05/30/17 Lisinopril/Hydrochlorothiazide [Lisinopril-Hctz 10-12.5 mg Tab] 1 each PO DAILY 05/30/17 Metoprolol Succinate [Toprol Xl] 25 mg PO DAILY 05/30/17 Tramadol HCl 50 mg PO PRN 05/30/17 Oseltamivir Phosphate [Tamiflu -] 75 mg PO BID #7 capsule 07/07/17 levoFLOXacin [Levaquin -] 500 mg PO DAILY@0600 #2 tablet 07/07/17 Ondansetron [Zofran *Odt*] 8 mg SL BID PRN #7 od.tablet 07/09/17
[2017-07-09 12:08] VITALS: BP 125/87; PULSE 58; TEMP 97.9
== END 2017-07-09 12:50 | disposition home or self-care (01) | DRG 872 ==
LOC: JER 19:24 → JERBED 22:01 → JICU 22:40 → J8W 07-06 19:33
PROVIDERS: ADMIT Internal Medicine; ATTEND Internal Medicine
DX: A41.9 Sepsis, unspecified organism (principal); C79.51 Secondary malignant neoplasm of bone; J10.1 Influenza due to other identified influenza virus with other respiratory manifestations; I10 Essential (primary) hypertension; K21.9 Gastro-esophageal reflux disease without esophagitis; Z92.21 Personal history of antineoplastic chemotherapy; C50.312 Malignant neoplasm of lower-inner quadrant of left female breast; D70.9 Neutropenia, unspecified; E83.39 Other disorders of phosphorus metabolism; F41.9 Anxiety disorder, unspecified; D64.9 Anemia, unspecified
CPT/HCPCS: 36415; 71045-TC-FY; 80048; 80053; 81003; 81015; 82803; 83036; 83605; 83735; 84100; 84484; 85025; 85610; 85730; 87040; 87086; 87804; 93005; 93010; 94010; 94640; 99282-25; G0480; J0131; J1447; J7030

== ENCOUNTER 2017-07-15 07:33 | Day surgery (SDC) | payer MEDICARE, OTHER ==
[2017-07-15] MEDS ORDERED: PALONOSETRON HCL 0.25 MG/5 ML VIAL IVPUSH ONE (08:00)
[2017-07-15] MEDS ORDERED: DEXAMETHASONE INJECTION 20 MG, DIPHENHYDRAMINE 25 MG, RANITIDINE INJECTION 50 MG in SOD... IVPB ONE (08:00)
[2017-07-15] MEDS ORDERED: PACLITAXEL 138 MG in SODIUM CHLORIDE 250 ML IVPB ONE (08:30)
[2017-07-15 09:08] LABS: HEMATOCRIT 31.8 % (32.4-45.2); HEMOGLOBIN 10.6 GM/dL (10.7-15.3); MCH 29.2 pg (25.7-33.7); MCHC 33.5 g/dl (32.0-36.0); MEAN CELL VOLUME 87.1 fl (80-96); PLATELET COUNT 187 K/MM3 (134-434); RBC 3.64 M/mm3 (3.60-5.2); RDW 16.5 % (11.6-15.6); WHITE BLOOD COUNT 27.3 K/mm3 (4.0-10.0)
[2017-07-15 09:30] LABS: ALBUMIN 3.5 g/dl (3.4-5.0); ANION GAP 6 (8-16); BILIRUBIN,TOTAL 0.8 mg/dL (0.2-1.0); BLOOD UREA NITROGEN 14 mg/dL (7-18); CALCIUM 8.7 mg/dL (8.5-10.1); CHLORIDE 108 mmol/L (98-107); CO2 27 mmol/L (21-32); CREATININE 0.9 mg/dL (0.55-1.02); GLUCOSE,RANDOM 109 mg/dL (74-106); POTASSIUM 4.3 mmol/L (3.5-5.1); SGOT/AST 9 U/L (15-37); SGPT/ALT 16 U/L (12-78); SODIUM 141 mmol/L (136-145)
[2017-07-15] MEDS ORDERED: ZOLEDRONIC ACID 4 MG in SODIUM CHLORIDE 100 ML IVPB ONE (09:30)
[2017-07-15 09:31] LABS: ALK PHOS 84 U/L (45-117); TOT PROT 6.3 g/dl (6.4-8.2)
[2017-07-15 10:08] LABS: ANISOCYTOSIS 1+; MACROCYTOSIS 1+; PLATELET ESTIMATE NORMAL
[2017-07-15] MEDS ORDERED: PORTA CATH FLUSH 10 ML IVPUSH ONE (10:27)
[2017-07-15 13:28] VITALS: BP 118/63; PULSE 87
[2017-07-15 13:31] VITALS: TEMP 97.9
[2017-07-15 14:06] LABS: BILIRUBIN,DIRECT 0.2 mg/dL (0.0-0.2); MAGNESIUM 2.2 mg/dL (1.8-2.4)
== END 2017-07-15 12:55 | disposition home or self-care (01) ==
LOC: JONCCHEMO 07:33 → J7W 09:39 → JONCCHEMO 12:55
PROVIDERS: ATTEND Internal Medicine Hematology & Oncology
DX: Z51.11 Encounter for antineoplastic chemotherapy (principal); C50.919 Malignant neoplasm of unspecified site of unspecified female breast; C79.51 Secondary malignant neoplasm of bone
CPT/HCPCS: 36415; 80053; 80076; 83735; 85025; 96367; 96375; 96413; 96417; J1100; J2469; J3489

== ENCOUNTER 2017-07-22 07:36 | Day surgery (SDC) | payer MEDICARE ==
[2017-07-22] MEDS ORDERED: PALONOSETRON HCL 0.25 MG/5 ML VIAL IVPUSH ONE (08:00)
[2017-07-22] MEDS ORDERED: DEXAMETHASONE INJECTION 20 MG, DIPHENHYDRAMINE 25 MG, RANITIDINE INJECTION 50 MG in SOD... IVPB ONE (08:00)
[2017-07-22] MEDS ORDERED: PACLITAXEL 138 MG in SODIUM CHLORIDE 250 ML IVPB ONE (08:30)
[2017-07-22 09:16] LABS: BASO % 2.4 % (0-2.0); EOS % 5.6 % (0-4.5); HEMATOCRIT 31.9 % (32.4-45.2); HEMOGLOBIN 10.8 GM/dL (10.7-15.3); LYMPH % 28.8 % (8-40); MCH 29.4 pg (25.7-33.7); MEAN CELL VOLUME 86.4 fl (80-96); MEAN PLT VOLUME 7.4 fl (7.5-11.1); MONO % 7.6 % (3.8-10.2); NEUT % 55.6 % (42.8-82.8); PLATELET COUNT 223 K/MM3 (134-434); RBC 3.69 M/mm3 (3.60-5.2); RDW 15.9 % (11.6-15.6)
[2017-07-22 09:25] LABS: WHITE BLOOD COUNT 1.8 K/mm3 (4.0-10.0)
[2017-07-22 09:39] LABS: ALBUMIN 3.8 g/dl (3.4-5.0); ALK PHOS 81 U/L (45-117); ANION GAP 3 (8-16); BILIRUBIN,TOTAL 0.7 mg/dL (0.2-1.0); BLOOD UREA NITROGEN 13 mg/dL (7-18); CALCIUM 8.4 mg/dL (8.5-10.1); CHLORIDE 105 mmol/L (98-107); CO2 30 mmol/L (21-32); CREATININE 0.7 mg/dL (0.55-1.02); GLUCOSE,RANDOM 102 mg/dL (74-106); POTASSIUM 4.5 mmol/L (3.5-5.1); SGOT/AST 12 U/L (15-37); SGPT/ALT 21 U/L (12-78); SODIUM 138 mmol/L (136-145); TOT PROT 6.9 g/dl (6.4-8.2)
[2017-07-22 09:50] LABS: BILIRUBIN,DIRECT 0.2 mg/dL (0.0-0.2); MAGNESIUM 2.3 mg/dL (1.8-2.4)
[2017-07-22] MEDS ORDERED: TBO-FILGRASTIM 480 MCG/0.8 ML DISP.SYRIN SQ ONE (10:30)
[2017-07-22 13:21] VITALS: TEMP 97.8
[2017-07-22 13:40] VITALS: BP 116/64; PULSE 71
== END 2017-07-22 13:15 | disposition home or self-care (01) ==
LOC: JONCCHEMO 07:36 → J7W 09:24 → JONCCHEMO 13:15
PROVIDERS: ATTEND Internal Medicine Hematology & Oncology
PROC: 3E013GC Introduction of Other Therapeutic Substance into Subcutaneous Tissue, Percutaneous Approach (ICD-10-PCS; principal; 2017-07-22)
DX: C50.919 Malignant neoplasm of unspecified site of unspecified female breast (principal); C79.51 Secondary malignant neoplasm of bone; Z76.89 Persons encountering health services in other specified circumstances
CPT/HCPCS: 36415; 36598; 80053; 80076; 83735; 85025; 96372; J1447

== ENCOUNTER 2017-07-23 07:39 | Day surgery (SDC) | payer MEDICARE ==
[2017-07-23] MEDS ORDERED: DEXAMETHASONE INJECTION 20 MG, DIPHENHYDRAMINE 25 MG, RANITIDINE INJECTION 50 MG in SOD... IVPB ONE (08:00)
[2017-07-23] MEDS ORDERED: PALONOSETRON HCL 0.25 MG/5 ML VIAL IVPUSH ONE (08:00)
[2017-07-23] MEDS ORDERED: PACLITAXEL 138 MG in SODIUM CHLORIDE 250 ML IVPB ONE (08:30)
[2017-07-23 09:10] LABS: HEMATOCRIT 31.7 % (32.4-45.2); MCH 29.9 pg (25.7-33.7); MCHC 34.8 g/dl (32.0-36.0); MEAN CELL VOLUME 86.1 fl (80-96); MEAN PLT VOLUME 7.6 fl (7.5-11.1); PLATELET COUNT 265 K/MM3 (134-434); RBC 3.69 M/mm3 (3.60-5.2); RDW 16.2 % (11.6-15.6); WHITE BLOOD COUNT 3.9 K/mm3 (4.0-10.0)
[2017-07-23] MEDS ORDERED: SODIUM CHLORIDE 200 ML IV SCH (09:45)
[2017-07-23 10:35] VITALS: TEMP 97.7
[2017-07-23] MEDS ORDERED: PORTA CATH FLUSH 10 ML IVPUSH ONE (10:35)
[2017-07-23 10:50] LABS: ACANTHOCYTES 0; ANISOCYTOSIS 0; HELMET CELLS 0; HOWELL-JOLLY BODIES 0; MACROCYTOSIS 0; OVALOCYTE 0; PLATELET ESTIMATE NORMAL; ROULEAU 0; SICKELED CELLS 0; TARGET CELLS 0; TEAR DROP CELLS 0; TOXIC GRANULATION 0
[2017-07-23 15:08] VITALS: BP 134/73; PULSE 99
== END 2017-07-23 12:20 | disposition home or self-care (01) ==
LOC: JONCCHEMO 07:39 → J7W 09:27 → JONCCHEMO 12:20
PROVIDERS: ATTEND Internal Medicine Hematology & Oncology
DX: Z51.11 Encounter for antineoplastic chemotherapy (principal); C50.919 Malignant neoplasm of unspecified site of unspecified female breast; C79.51 Secondary malignant neoplasm of bone
CPT/HCPCS: 36415; 85025; 96361; 96367; 96375; 96413; J1100; J2469

== ENCOUNTER 2017-07-27 10:48 | Day surgery (SDC) | payer MEDICARE ==
[2017-07-27 11:10] LABS: HEMATOCRIT 31.8 % (32.4-45.2); HEMOGLOBIN 10.9 GM/dL (10.7-15.3); MCH 29.5 pg (25.7-33.7); MCHC 34.4 g/dl (32.0-36.0); MEAN CELL VOLUME 85.9 fl (80-96); MEAN PLT VOLUME 7.7 fl (7.5-11.1); PLATELET COUNT 213 K/MM3 (134-434); RDW 15.6 % (11.6-15.6)
[2017-07-27 11:18] LABS: WHITE BLOOD COUNT 0.8 K/mm3 (4.0-10.0)
[2017-07-27 11:29] LABS: ALBUMIN 3.7 g/dl (3.4-5.0); ALK PHOS 85 U/L (45-117); ANION GAP 5 (8-16); BILIRUBIN,DIRECT 0.3 mg/dL (0.0-0.2); BILIRUBIN,TOTAL 1.1 mg/dL (0.2-1.0); BLOOD UREA NITROGEN 18 mg/dL (7-18); CALCIUM 8.5 mg/dL (8.5-10.1); CHLORIDE 104 mmol/L (98-107); CO2 28 mmol/L (21-32); CREATININE 0.7 mg/dL (0.55-1.02); GLUCOSE,RANDOM 109 mg/dL (74-106); POTASSIUM 4.9 mmol/L (3.5-5.1); SGOT/AST 10 U/L (15-37); SGPT/ALT 33 U/L (12-78); SODIUM 137 mmol/L (136-145); TOT PROT 6.7 g/dl (6.4-8.2)
[2017-07-27] MEDS ORDERED: [UNRECOGNIZED DRUG - OTHER] IVPB ONE (13:00)
[2017-07-27] MEDS ORDERED: POTASSIUM CHLORIDE IVPB ONE (13:00)
[2017-07-27] MEDS ORDERED: MAGNESIUM SULFATE IVPB ONE (13:00)
[2017-07-27 13:28] LABS: PLATELET ESTIMATE NORMAL
[2017-07-27] MEDS ORDERED: D5-NS + 20 MEQ KCL - 20 MEQ/1,000 ML INFUS.BAG IV SCH (15:00)
[2017-07-27 16:37] VITALS: BP 125/63; PULSE 85; TEMP 97.7
[2017-07-27] MEDS ORDERED: PORTA CATH FLUSH 10 ML IVPUSH ONE (16:37)
== END 2017-07-27 17:21 | disposition home or self-care (01) ==
LOC: JONCNONCHE 10:48 → JONCCHEMO 10:48 → J7W 11:45 → JONCNONCHE 17:21
PROVIDERS: ATTEND Internal Medicine Hematology & Oncology
PROC: 3E04329 Introduction of Other Anti-infective into Central Vein, Percutaneous Approach (ICD-10-PCS; principal; 2017-07-27)
PROC: 3E0437Z Introduction of Electrolytic and Water Balance Substance into Central Vein, Percutaneous Approach (ICD-10-PCS; 2017-07-27)
DX: D70.1 Agranulocytosis secondary to cancer chemotherapy (principal); C50.411 Malignant neoplasm of upper-outer quadrant of right female breast; R50.81 Fever presenting with conditions classified elsewhere; C79.51 Secondary malignant neoplasm of bone; Z17.0 Estrogen receptor positive status [ER+]
CPT/HCPCS: 36415; 80053; 80076; 83735; 85025; 87040; 96361; 96365; 96417

== ENCOUNTER 2017-07-28 07:27 | Day surgery (SDC) | payer MEDICARE ==
[2017-07-28] MEDS ORDERED: TBO-FILGRASTIM 480 MCG/0.8 ML DISP.SYRIN SQ ONE (09:00)
[2017-07-28] MEDS ORDERED: SODIUM CHLORIDE 1,000 ML IV ONE (09:00)
[2017-07-28 09:33] VITALS: TEMP 98.1
[2017-07-28] MEDS ORDERED: PORTA CATH FLUSH 10 ML IVPUSH ONE ×2 (09:33→16:15)
[2017-07-28 16:15] VITALS: BP 102/60; PULSE 98
== END 2017-07-28 15:00 | disposition home or self-care (01) ==
LOC: JONCNONCHE 07:27 → J7W 09:06 → JONCNONCHE 15:00
PROVIDERS: ATTEND Internal Medicine Hematology & Oncology
PROC: 3E04329 Introduction of Other Anti-infective into Central Vein, Percutaneous Approach (ICD-10-PCS; principal; 2017-07-28)
PROC: 3E013GC Introduction of Other Therapeutic Substance into Subcutaneous Tissue, Percutaneous Approach (ICD-10-PCS; 2017-07-28)
DX: D70.1 Agranulocytosis secondary to cancer chemotherapy (principal); R50.81 Fever presenting with conditions classified elsewhere; C50.411 Malignant neoplasm of upper-outer quadrant of right female breast; C79.51 Secondary malignant neoplasm of bone; Z17.0 Estrogen receptor positive status [ER+]; Z76.89 Persons encountering health services in other specified circumstances
CPT/HCPCS: 96365; 96372; J1447; J7030

== ENCOUNTER 2017-08-05 07:19 | Day surgery (SDC) | payer MEDICARE ==
[2017-08-05 09:11] VITALS: PULSE 68
[2017-08-05 09:59] LABS: HEMATOCRIT 30.8 % (32.4-45.2); HEMOGLOBIN 10.6 GM/dL (10.7-15.3); MCH 30.2 pg (25.7-33.7); MCHC 34.4 g/dl (32.0-36.0); MEAN CELL VOLUME 87.5 fl (80-96); MEAN PLT VOLUME 7.3 fl (7.5-11.1); PLATELET COUNT 198 K/MM3 (134-434); RBC 3.52 M/mm3 (3.60-5.2); RDW 16.6 % (11.6-15.6); WHITE BLOOD COUNT 3.3 K/mm3 (4.0-10.0)
[2017-08-05] MEDS ORDERED: DEXAMETHASONE INJECTION 20 MG, DIPHENHYDRAMINE 25 MG, RANITIDINE INJECTION 50 MG in SOD... IVPB ONE (10:00)
[2017-08-05] MEDS ORDERED: PALONOSETRON HCL 0.25 MG/5 ML VIAL IVPUSH ONE (10:00)
[2017-08-05] MEDS ORDERED: PACLITAXEL 138 MG in SODIUM CHLORIDE 250 ML IVPB ONE (10:30)
[2017-08-05 10:34] LABS: ALBUMIN 3.8 g/dl (3.4-5.0); ALK PHOS 77 U/L (45-117); BILIRUBIN,DIRECT 0.2 mg/dL (0.0-0.2); BILIRUBIN,TOTAL 0.8 mg/dL (0.2-1.0); MAGNESIUM 2.2 mg/dL (1.8-2.4); SGOT/AST 16 U/L (15-37); SGPT/ALT 27 U/L (12-78); TOT PROT 6.8 g/dl (6.4-8.2)
[2017-08-05 11:06] LABS: ANION GAP 6 (8-16); BLOOD UREA NITROGEN 11 mg/dL (7-18); CALCIUM 8.3 mg/dL (8.5-10.1); CHLORIDE 108 mmol/L (98-107); CO2 27 mmol/L (21-32); CREATININE 0.9 mg/dL (0.55-1.02); GLUCOSE,RANDOM 121 mg/dL (74-106); POTASSIUM 3.9 mmol/L (3.5-5.1); SODIUM 141 mmol/L (136-145)
[2017-08-05 14:31] VITALS: BP 109/55; TEMP 97.8
[2017-08-05] MEDS ORDERED: PORTA CATH FLUSH 10 ML IVPUSH ONE (14:31)
[2017-08-05 14:49] LABS: ANISOCYTOSIS 1+; PLATELET ESTIMATE NORMAL
== END 2017-08-05 13:00 | disposition home or self-care (01) ==
LOC: JONCCHEMO 07:19 → J7W 09:59 → JONCCHEMO 13:00
PROVIDERS: ATTEND Internal Medicine Hematology & Oncology
DX: Z51.11 Encounter for antineoplastic chemotherapy (principal); C50.411 Malignant neoplasm of upper-outer quadrant of right female breast; C79.51 Secondary malignant neoplasm of bone; D70.1 Agranulocytosis secondary to cancer chemotherapy
CPT/HCPCS: 36415; 80053; 80076; 82378; 83735; 85025; 86300; 96367; 96375; 96413; J1100; J2469

== ENCOUNTER 2017-08-12 07:28 | Day surgery (SDC) | payer MEDICARE ==
[2017-08-12 08:57] LABS: BASO % 2.8 % (0-2.0); EOS % 1.8 % (0-4.5); HEMATOCRIT 31.3 % (32.4-45.2); HEMOGLOBIN 10.6 GM/dL (10.7-15.3); LYMPH % 33.5 % (8-40); MCH 29.7 pg (25.7-33.7); MCHC 33.8 g/dl (32.0-36.0); MEAN CELL VOLUME 87.8 fl (80-96); MEAN PLT VOLUME 7.5 fl (7.5-11.1); MONO % 11.6 % (3.8-10.2); NEUT % 50.3 % (42.8-82.8); PLATELET COUNT 242 K/MM3 (134-434); RBC 3.56 M/mm3 (3.60-5.2); RDW 17.1 % (11.6-15.6); WHITE BLOOD COUNT 3.2 K/mm3 (4.0-10.0)
[2017-08-12] MEDS ORDERED: ZOLEDRONIC ACID 4 MG in SODIUM CHLORIDE 100 ML IVPB ONE (09:00)
[2017-08-12 09:28] LABS: ALBUMIN 3.9 g/dl (3.4-5.0); ANION GAP 5 (8-16); BILIRUBIN,DIRECT < 0.2 mg/dL (0.0-0.2); BLOOD UREA NITROGEN 20 mg/dL (7-18); CHLORIDE 107 mmol/L (98-107); CO2 30 mmol/L (21-32); CREATININE 0.8 mg/dL (0.55-1.02); GLUCOSE,RANDOM 119 mg/dL (74-106); MAGNESIUM 2.1 mg/dL (1.8-2.4); POTASSIUM 4.4 mmol/L (3.5-5.1); SGOT/AST 10 U/L (15-37); SGPT/ALT 20 U/L (12-78); SODIUM 142 mmol/L (136-145)
[2017-08-12 09:29] LABS: ALK PHOS 64 U/L (45-117); BILIRUBIN,TOTAL 0.7 mg/dL (0.2-1.0); TOT PROT 6.7 g/dl (6.4-8.2)
[2017-08-12] MEDS ORDERED: DEXAMETHASONE INJECTION 20 MG, DIPHENHYDRAMINE 25 MG, RANITIDINE INJECTION 50 MG in SOD... IVPB ONE (10:00)
[2017-08-12] MEDS ORDERED: PALONOSETRON HCL 0.25 MG/5 ML VIAL IVPUSH ONE (10:00)
[2017-08-12] MEDS ORDERED: PACLITAXEL 138 MG in SODIUM CHLORIDE 250 ML IVPB ONE (10:30)
[2017-08-12 11:44] VITALS: PULSE 56; TEMP 97.6
[2017-08-12] MEDS ORDERED: PORTA CATH FLUSH 10 ML IVPUSH ONE (11:44)
[2017-08-12 14:47] VITALS: BP 121/72
== END 2017-08-12 12:30 | disposition home or self-care (01) ==
LOC: JONCCHEMO 07:28 → J7W 09:15 → JONCCHEMO 12:30
PROVIDERS: ATTEND Internal Medicine Hematology & Oncology
DX: Z51.11 Encounter for antineoplastic chemotherapy (principal); C50.411 Malignant neoplasm of upper-outer quadrant of right female breast; C79.51 Secondary malignant neoplasm of bone; D70.1 Agranulocytosis secondary to cancer chemotherapy
CPT/HCPCS: 36415; 80053; 80076; 83735; 85025; 96366; 96367; 96375; 96413; 96417; J1100; J2469; J3489

== ENCOUNTER 2017-08-19 07:28 | Day surgery (SDC) | payer MEDICARE, OTHER ==
[2017-08-19 09:10] LABS: BASO % 2.4 % (0-2.0); EOS % 2.2 % (0-4.5); LYMPH % 30.2 % (8-40); MCH 30.3 pg (25.7-33.7); MCHC 34.4 g/dl (32.0-36.0); MEAN PLT VOLUME 7.5 fl (7.5-11.1); MONO % 9.5 % (3.8-10.2); NEUT % 55.7 % (42.8-82.8); PLATELET COUNT 264 K/MM3 (134-434); RBC 3.64 M/mm3 (3.60-5.2); WHITE BLOOD COUNT 2.2 K/mm3 (4.0-10.0)
[2017-08-19 09:34] LABS: ANION GAP 6 (8-16); BILIRUBIN,TOTAL 0.7 mg/dL (0.2-1.0); BLOOD UREA NITROGEN 17 mg/dL (7-18); CALCIUM 8.4 mg/dL (8.5-10.1); CHLORIDE 103 mmol/L (98-107); CO2 27 mmol/L (21-32); CREATININE 0.9 mg/dL (0.55-1.02); GLUCOSE,RANDOM 103 mg/dL (74-106); POTASSIUM 4.5 mmol/L (3.5-5.1); SGOT/AST 15 U/L (15-37); SGPT/ALT 27 U/L (12-78); SODIUM 136 mmol/L (136-145); TOT PROT 7.3 g/dl (6.4-8.2)
[2017-08-19 09:35] LABS: ALK PHOS 75 U/L (45-117)
[2017-08-19 09:56] LABS: BILIRUBIN,DIRECT < 0.2 mg/dL (0.0-0.2); MAGNESIUM 2.2 mg/dL (1.8-2.4)
[2017-08-19] MEDS ORDERED: DEXAMETHASONE INJECTION 20 MG, DIPHENHYDRAMINE 25 MG, RANITIDINE INJECTION 50 MG in SOD... IVPB ONE (10:00)
[2017-08-19] MEDS ORDERED: PALONOSETRON HCL 0.25 MG/5 ML VIAL IVPUSH ONE (10:00)
[2017-08-19] MEDS ORDERED: PACLITAXEL 138 MG in SODIUM CHLORIDE 250 ML IVPB ONE (10:30)
[2017-08-19 15:28] VITALS: PULSE 79; TEMP 97.9
[2017-08-19 15:30] VITALS: BP 94/57
== END 2017-08-19 12:00 | disposition home or self-care (01) ==
LOC: JONCCHEMO 07:28 → J7W 09:36 → JONCCHEMO 12:00
PROVIDERS: ATTEND Internal Medicine Hematology & Oncology
PROC: 3E04305 Introduction of Other Antineoplastic into Central Vein, Percutaneous Approach (ICD-10-PCS; principal; 2017-08-19)
PROC: 3E033GC Introduction of Other Therapeutic Substance into Peripheral Vein, Percutaneous Approach (ICD-10-PCS; 2017-08-19)
DX: Z51.11 Encounter for antineoplastic chemotherapy (principal); C50.411 Malignant neoplasm of upper-outer quadrant of right female breast; C79.51 Secondary malignant neoplasm of bone; I10 Essential (primary) hypertension; K21.9 Gastro-esophageal reflux disease without esophagitis
CPT/HCPCS: 36415; 80053; 80076; 82378; 83735; 85025; 86300; 96375; 96413; J1100; J2469

== ENCOUNTER 2017-08-26 07:32 | Day surgery (SDC) | payer MEDICARE ==
[2017-08-26 09:14] LABS: HEMATOCRIT 28.3 % (32.4-45.2); HEMOGLOBIN 10.2 GM/dL (10.7-15.3); MCH 31.5 pg (25.7-33.7); MCHC 35.9 g/dl (32.0-36.0); MEAN CELL VOLUME 87.7 fl (80-96); MEAN PLT VOLUME 7.5 fl (7.5-11.1); PLATELET COUNT 310 K/MM3 (134-434); RBC 3.23 M/mm3 (3.60-5.2); RDW 16.5 % (11.6-15.6); WHITE BLOOD COUNT 3.9 K/mm3 (4.0-10.0)
[2017-08-26 09:37] VITALS: TEMP 98.2
[2017-08-26] MEDS ORDERED: PACLITAXEL 138 MG in SODIUM CHLORIDE 250 ML IVPB ONE (10:00)
[2017-08-26] MEDS ORDERED: DEXAMETHASONE INJECTION 20 MG, DIPHENHYDRAMINE 25 MG, RANITIDINE INJECTION 50 MG in SOD... IVPB ONE (10:00)
[2017-08-26] MEDS ORDERED: PALONOSETRON HCL 0.25 MG/5 ML VIAL IVPUSH ONE (10:00)
[2017-08-26 10:12] LABS: ALBUMIN 3.8 g/dl (3.4-5.0); ALK PHOS 57 U/L (45-117); ANION GAP 7 (8-16); BILIRUBIN,TOTAL 0.7 mg/dL (0.2-1.0); BLOOD UREA NITROGEN 11 mg/dL (7-18); CALCIUM 8.9 mg/dL (8.5-10.1); CHLORIDE 103 mmol/L (98-107); CO2 29 mmol/L (21-32); CREATININE 0.7 mg/dL (0.55-1.02); GLUCOSE,RANDOM 102 mg/dL (74-106); POTASSIUM 4.3 mmol/L (3.5-5.1); SGOT/AST 13 U/L (15-37); SGPT/ALT 22 U/L (12-78); SODIUM 139 mmol/L (136-145); TOT PROT 6.6 g/dl (6.4-8.2)
[2017-08-26 10:13] LABS: ALBUMIN 3.8 g/dl (3.4-5.0); BILIRUBIN,DIRECT < 0.2 mg/dL (0.0-0.2); MAGNESIUM 2.1 mg/dL (1.8-2.4); SGOT/AST 13 U/L (15-37); SGPT/ALT 22 U/L (12-78)
[2017-08-26 10:14] LABS: ALK PHOS 56 U/L (45-117); BILIRUBIN,TOTAL 0.7 mg/dL (0.2-1.0); TOT PROT 6.6 g/dl (6.4-8.2)
[2017-08-26 10:45] LABS: PLATELET ESTIMATE NORMAL
[2017-08-26 14:54] VITALS: BP 120/73; PULSE 76
== END 2017-08-26 12:15 | disposition home or self-care (01) ==
LOC: JONCCHEMO 07:32 → J7W 09:28 → JONCCHEMO 12:15
PROVIDERS: ATTEND Internal Medicine Hematology & Oncology
PROC: 3E04305 Introduction of Other Antineoplastic into Central Vein, Percutaneous Approach (ICD-10-PCS; principal; 2017-08-26)
PROC: 3E043GC Introduction of Other Therapeutic Substance into Central Vein, Percutaneous Approach (ICD-10-PCS; 2017-08-26)
PROC: 3E0437Z Introduction of Electrolytic and Water Balance Substance into Central Vein, Percutaneous Approach (ICD-10-PCS; 2017-08-26)
DX: Z51.11 Encounter for antineoplastic chemotherapy (principal); C50.411 Malignant neoplasm of upper-outer quadrant of right female breast; C79.51 Secondary malignant neoplasm of bone; I10 Essential (primary) hypertension; K21.9 Gastro-esophageal reflux disease without esophagitis
CPT/HCPCS: 36415; 80053; 80076; 82378; 83735; 85025; 86300; 87324; 87449; 96367; 96375; 96413; J1100; J2469

== ENCOUNTER 2017-09-10 06:42 | Day surgery (SDC) | payer MEDICARE ==
[2017-09-10] MEDS ORDERED: PALONOSETRON HCL 0.25 MG/5 ML VIAL IVPUSH ONE (08:00)
[2017-09-10] MEDS ORDERED: DEXAMETHASONE INJECTION 20 MG, DIPHENHYDRAMINE 25 MG, RANITIDINE INJECTION 50 MG in SOD... IVPB ONE (08:00)
[2017-09-10] MEDS ORDERED: PACLITAXEL 138 MG in SODIUM CHLORIDE 250 ML IVPB ONE (08:30)
[2017-09-10] MEDS ORDERED: ZOLEDRONIC ACID 4 MG in SODIUM CHLORIDE 100 ML IVPB ONE (09:00)
[2017-09-10 10:17] LABS: BASO % 2.5 % (0-2.0); EOS % 2.5 % (0-4.5); HEMOGLOBIN 11.2 GM/dL (10.7-15.3); MCH 29.9 pg (25.7-33.7); MCHC 34.1 g/dl (32.0-36.0); MEAN CELL VOLUME 87.8 fl (80-96); MEAN PLT VOLUME 7.6 fl (7.5-11.1); MONO % 14.7 % (3.8-10.2); NEUT % 50.3 % (42.8-82.8); PLATELET COUNT 229 K/MM3 (134-434); RBC 3.76 M/mm3 (3.60-5.2); RDW 16.1 % (11.6-15.6); WHITE BLOOD COUNT 3.5 K/mm3 (4.0-10.0)
[2017-09-10 10:18] VITALS: TEMP 97.7
[2017-09-10] MEDS ORDERED: PORTA CATH FLUSH 10 ML IVPUSH ONE (10:30)
[2017-09-10 10:42] LABS: ALBUMIN 3.9 g/dl (3.4-5.0); ALK PHOS 59 U/L (45-117); ANION GAP 6 (8-16); BILIRUBIN,DIRECT 0.2 mg/dL (0.0-0.2); BILIRUBIN,TOTAL 0.7 mg/dL (0.2-1.0); BLOOD UREA NITROGEN 14 mg/dL (7-18); CHLORIDE 107 mmol/L (98-107); CO2 30 mmol/L (21-32); CREATININE 0.9 mg/dL (0.55-1.02); GLUCOSE,RANDOM 94 mg/dL (74-106); MAGNESIUM 2.2 mg/dL (1.8-2.4); POTASSIUM 4.4 mmol/L (3.5-5.1); SGOT/AST 13 U/L (15-37); SGPT/ALT 23 U/L (12-78); SODIUM 143 mmol/L (136-145)
[2017-09-10 13:36] VITALS: BP 128/70; PULSE 64
== END 2017-09-10 11:00 | disposition home or self-care (01) ==
LOC: JONCCHEMO 06:42 → J7W 09:56 → JONCCHEMO 11:00
PROVIDERS: ATTEND Internal Medicine Hematology & Oncology
PROC: 3E043GC Introduction of Other Therapeutic Substance into Central Vein, Percutaneous Approach (ICD-10-PCS; principal; 2017-09-10)
DX: C50.911 Malignant neoplasm of unspecified site of right female breast (principal); C79.51 Secondary malignant neoplasm of bone; I10 Essential (primary) hypertension
CPT/HCPCS: 36415; 76642-TC-50; 77065-TC; 77080-TC-FY; 80053; 80076; 83735; 85025; 96365; 96417; G0279-TC; J3489

== ENCOUNTER 2018-02-02 07:46 | Day surgery (SDC) | payer MEDICARE ==
[2018-02-02 11:03] LABS: BASO % 1.2 % (0-2.0); EOS % 3.3 % (0-4.5); HEMATOCRIT 35.1 % (32.4-45.2); LYMPH % 25.3 % (8-40); MCH 27.9 pg (25.7-33.7); MEAN CELL VOLUME 82.1 fl (80-96); MEAN PLT VOLUME 7.4 fl (7.5-11.1); MONO % 8.9 % (3.8-10.2); NEUT % 61.3 % (42.8-82.8); PLATELET COUNT 235 K/MM3 (134-434); RBC 4.28 M/mm3 (3.60-5.2); RDW 15.1 % (11.6-15.6); WHITE BLOOD COUNT 4.7 K/mm3 (4.0-10.0)
[2018-02-02 11:45] LABS: ALBUMIN 4.1 g/dl (3.4-5.0); ALK PHOS 72 U/L (45-117); ANION GAP 6 MMOL/L (8-16); BILIRUBIN,DIRECT 0.2 mg/dL (0.0-0.2); BLOOD UREA NITROGEN 15 mg/dL (7-18); CALCIUM 9.1 mg/dL (8.5-10.1); CHLORIDE 105 mmol/L (98-107); CO2 29 mmol/L (21-32); GLUCOSE,RANDOM 98 mg/dL (74-106); POTASSIUM 3.9 mmol/L (3.5-5.1); SGOT/AST 20 U/L (15-37); SGPT/ALT 26 U/L (13-61); SODIUM 140 mmol/L (136-145); TOT PROT 7.7 g/dl (6.4-8.2); TOT PROT 7.9 g/dl (6.4-8.2)
[2018-02-02] MEDS ORDERED: ZOLEDRONIC ACID 4 MG in SODIUM CHLORIDE 100 ML IVPB ONE (12:00)
[2018-02-02] MEDS ORDERED: FULVESTRANT 250 MG/5 ML SYRINGE IM ONE ×3 (12:00→12:45)
[2018-02-02 16:44] VITALS: TEMP 99.3
[2018-02-02 16:48] VITALS: BP 148/65; PULSE 65
[2018-02-02] MEDS ORDERED: PORTA CATH FLUSH 10 ML IVPUSH ONE (16:48)
== END 2018-02-02 13:30 | disposition home or self-care (01) ==
LOC: JONCCHEMO 07:46 → J7W 12:15 → JONCCHEMO 13:30
PROVIDERS: ATTEND Internal Medicine Hematology & Oncology
PROC: 3E02305 Introduction of Other Antineoplastic into Muscle, Percutaneous Approach (ICD-10-PCS; principal; 2018-02-02)
PROC: 3E033GC Introduction of Other Therapeutic Substance into Peripheral Vein, Percutaneous Approach (ICD-10-PCS; 2018-02-02)
DX: Z51.11 Encounter for antineoplastic chemotherapy (principal); C50.911 Malignant neoplasm of unspecified site of right female breast; C79.51 Secondary malignant neoplasm of bone
CPT/HCPCS: 36415; 80053; 80076; 83735; 85025; 96365; 96402; 96417; J3489; J9395

== ENCOUNTER 2018-02-05 10:19 | Emergency (ER) | payer MEDICARE ==
[2018-02-05 10:30] VITALS: TEMP 99.4; BMI 22.4
[2018-02-05] MEDS ORDERED: morphine CARPU-JECT 2 MG/1 ML DISP.SYRIN SQ ONE (11:02)
[2018-02-05] MEDS ORDERED: morphine SULFATE 4 MG/ML VIAL ONE (11:14)
--- NOTE | 2018-02-05 12:48 | PDOC ---
History of Present Illness - General Chief Complaint: Pain Stated Complaint: PAIN Time Seen by Provider: 02/05/18 10:36 History Source: Patient Exam Limitations: No Limitations - History of Present Illness Initial Comments: 02/05/18 12:23 67-year-old female presents to ED with complaints of left leg pain for the past few days worsened with ambulation and movement. Patient states history of breast cancer with metastasis under the care of Dr. 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 Patient states has been taking Percocet and gabapentin with no improvement. Patient denies skin discoloration, sensory changes distal of discomfort, history of DVT or PE. Timing/Duration: other Severity: moderate Associated Symptoms: reports: denies symptoms Past History - Travel Traveled outside of the country in the last 30 days: No - Past Medical History Allergies/Adverse Reactions: Allergies Allergy/AdvReac Type Severity Reaction Status Date / Time No Known Drug Allergies Allergy Verified 02/05/18 10:29 Home Medications: Ambulatory Orders Alprazolam [Xanax] 0.25 mg PO TID 05/30/17 Gabapentin 300 mg PO TID 05/30/17 Lisinopril/Hydrochlorothiazide [Lisinopril-Hctz 10-12.5 mg Tab] 1 each PO DAILY 05/30/17 Metoprolol Succinate [Toprol Xl] 25 mg PO DAILY 05/30/17 Tramadol HCl 50 mg PO PRN 05/30/17 Omeprazole 20 mg PO DAILY 02/05/18 Oxycodone HCl/Acetaminophen [Oxycodon-Acetaminophen 7.5-325] 1 each PO Q4H PRN 02/05/18 Anemia: No Cancer: Yes (breast cancer left, bone) COPD: No HTN: Yes - Surgical History Abdominal Surgery: Yes - Immunization History Immunization Up to Date: Yes - Suicide/Smoking/Psychosocial Hx Smoking History: Never smoked Have you smoked in the past 12 months: No Hx Alcohol Use: No Drug/Substance Use Hx: No Substance Use Type: None Hx Substance Use Treatment: No Patient Lives Alone: No Lives with/in: spouse/SO Review of Systems - Review of Systems Able to Perform ROS?: Yes Constitutional: No: Symptoms Reported HEENTM: No: Symptoms Reported Respiratory: No: Symptoms reported Cardiac (ROS): No: Symptoms Reported ABD/GI: No: Symptoms Reported : No: Symptoms Reported Musculoskeletal: Yes: Muscle Pain (leg calf and hamstring pain). No: Symptoms Reported Integumentary: No: Symptoms Reported Neurological: No: Symptoms reported Hematologic/Lymphatic: Yes: See HPI *Physical Exam - Vital Signs Last Vital Signs Temp Pulse Resp BP Pulse Ox 99.4 F 91 H 18 124/73 98 02/05/18 10:27 02/05/18 10:27 02/05/18 10:27 02/05/18 10:27 02/05/18 10:27 - Physical Exam General Appearance: Yes: Nourished, Appropriately Dressed. No: Apparent Distress HEENT: negative: Pale Conjunctivae Neck: positive: Supple Respiratory/Chest: positive: Lungs Clear, Normal Breath Sounds. negative: Respiratory Distress, Accessory Muscle Use Cardiovascular: positive: Regular Rhythm, Regular Rate. negative: Murmur Vascular Pulses: Dorsalis-Pedis (R): 2+, Doralis-Pedis (L): 2+ Gastrointestinal/Abdominal: positive: Soft. negative: Tenderness Extremity: positive: Normal Capillary Refill, Normal Inspection, Calf Tenderness , Other (unable to complete homans test secindary to pain). negative: Normal Range of Motion (unable to flex at patellar joint secodary to discomfort) Integumentary: positive: Normal Color, Warm, Moist Neurologic: positive: Normal Mood/Affect, Motor Strength 5/5 ED Treatment Course - RADIOLOGY Radiology Studies Ordered: Category Date Time Status DUPLEX VASCUL US-1 LEG [US] Stat Ultrasound 02/05/18 10:37 Completed - Medications Given in the ED: ED Medications Discontinued Medications Generic Name Dose Route Start Last Admin Trade Name Freq PRN Reason Stop Dose Admin Morphine Sulfate 4 mg 02/05/18 11:02 02/05/18 11:20 Morphine Injection - SQ 02/05/18 11:03 4 mg ONCE ONE Administration Medical Decision Making - Medical Decision Making 02/05/18 12:08 CC: left posterior leg pain for the past 2 days worsened with movement and ambulation. History breast CA with bone metastases Exam: No left lower extremity edema calf tenderness 2+ pulses. Plan: Duplex of the lower extremity and morphine for pain If negative will contact oncologist Dr. Galvan as this may be related to neuropathy 02/05/18 12:48 Duplex negative awaiting callback from [facility]'s associate, dr bella 02/05/18 13:09 Case discussed with oncologist Dr. Bella who is recommending a fentanyl patch 12 g. I have reviewed the labs from the when she had her chemotherapy done and will not repeat. Patient will be seen by Dr. Galvan patient's oncologist on Thursday to discuss management *DC/Admit/Observation/Transfer Diagnosis at time of Disposition: Left leg pain - Discharge Dispostion Disposition: HOME Condition at time of disposition: Good - Referrals - Patient Instructions Printed Discharge Instructions: DI for Leg Pain Additional Instructions: Please continue to use the patch and follow up with Dr. Galvan on Thursday. If you develop any increased grogginess dizziness or weakness please take the patch off. Please use the Percocet only as needed for discomfort. - Post Discharge Activity
[2018-02-05] MEDS ORDERED: FENTANYL PATCH WASTE MC PRN (13:01)
[2018-02-05] MEDS ORDERED: fentaNYL 12mcg/hr PATCH.TD72 TD SCH (13:15)
[2018-02-05 13:37] VITALS: BP 143/92; PULSE 78
== END 2018-02-05 12:35 | disposition home or self-care (01) ==
LOC: JER 10:19
PROC: 3E023NZ Introduction of Analgesics, Hypnotics, Sedatives into Muscle, Percutaneous Approach (ICD-10-PCS; principal; 2018-02-05)
DX: M79.605 Pain in left leg (principal); C50.912 Malignant neoplasm of unspecified site of left female breast; C79.51 Secondary malignant neoplasm of bone; I10 Essential (primary) hypertension; G62.9 Polyneuropathy, unspecified
CPT/HCPCS: 93971-TC; 96372; 99282-25

== ENCOUNTER 2018-02-05 21:52 | Inpatient (IN) | payer MEDICARE, OTHER ==
[2018-02-05] MEDS ORDERED: SODIUM CHLORIDE 0.9% 1000 ML INFUS.BAG IV STA (21:59)
[2018-02-05] MEDS ORDERED: VANCOMYCIN 1,000 MG in DEXTROSE 5%-WATER - 250 ML IVPB ONE (22:03)
--- NOTE | 2018-02-05 22:03 | PDOC ---
History of Present Illness - History of Present Illness Initial Comments: Patient is a 67 year old female with PMHx of HTN, GERD, breast cancer stage 4 with mets to bilateral femurs (follows Dr. Galvan, formerly on chemo/radiation, currently only on immunotherapy) comes back to the emergency department for fever and 3 days of difficulty ambulating secondary to left leg pain. Patient was here earlier for the left leg pain and was given fentanyl patch and percocet for the pain and was told to follow up with Dr. Galvan on Thursday. Patients daughter states that she developed a fever and gave her mom 400 mg of Motrin. Patients daughter notes that the cancer has metastasized to the pts clavicle and a few ribs, L4 of her spine, as well as her left femur. She states that the pain in her left leg is greatest at the back of her knee and travels down her leg, she also notes some swelling. Denies h/o DVT. Came back from [place] on Jan 19. Denies incontinence of bladder or stool, dysuria, or cough. Oncologist: Dr. Galvan <Angelica Son - Last Filed: 02/06/18 00:54> <Subha Donaldson - Last Filed: 02/06/18 20:13> - General Chief Complaint: SIRS, Suspected/Possible Stated Complaint: FEVER Past History <Angelica Son - Last Filed: 02/06/18 00:54> - Past Medical History Anemia: No Cancer: Yes (breast cancer left, bone) COPD: No HTN: Yes - Surgical History Abdominal Surgery: Yes - Immunization History Immunization Up to Date: Yes - Suicide/Smoking/Psychosocial Hx Smoking History: Never smoked Have you smoked in the past 12 months: No Hx Alcohol Use: No Drug/Substance Use Hx: No Substance Use Type: None Hx Substance Use Treatment: No <Subha Donaldson - Last Filed: 02/06/18 20:13> - Past Medical History Allergies/Adverse Reactions: Allergies Allergy/AdvReac Type Severity Reaction Status Date / Time No Known Drug Allergies Allergy Verified 02/05/18 21:55 Home Medications: Ambulatory Orders Alprazolam [Xanax] 1 mg PO HS 05/30/17 Gabapentin 300 mg PO TID 05/30/17 Lisinopril/Hydrochlorothiazide [Lisinopril-Hctz 10-12.5 mg Tab] 1 each PO DAILY 05/30/17 Metoprolol Succinate [Toprol Xl] 25 mg PO DAILY 05/30/17 Tramadol HCl 50 mg PO PRN 05/30/17 Omeprazole 20 mg PO DAILY 02/05/18 Oxycodone HCl/Acetaminophen [Oxycodon-Acetaminophen 7.5-325] 1 each PO Q4H PRN 02/05/18 *Physical Exam - Vital Signs Last Vital Signs Temp Pulse Resp BP Pulse Ox 99.0 F 88 18 119/59 L 98 02/05/18 21:53 02/05/18 21:53 02/05/18 21:53 02/05/18 21:53 02/05/18 21:53 - Physical Exam Comments: GENERAL: Awake, alert, and fully oriented, in no acute distress HEAD: No signs of trauma EYES: PERRLA, EOMI, sclera anicteric, conjunctiva clear ENT: Auricles normal inspection, hearing grossly normal, nares patent, oropharynx clear without exudates. LUNGS: Breath sounds equal, clear to auscultation bilaterally. No wheezes, and no crackles HEART: Regular rate and rhythm, normal S1 and S2, no murmurs, rubs or gallops ABDOMEN: Soft, nontender, normoactive bowel sounds. No guarding, no rebound. No masses EXTREMITIES: Left knee tenderness. Left calf swelling. Left leg weakness, secondary to pain. Reflexes--> Right knee 2+, left elbow 2+, Right arm 1+, Left knee unable to illicit reflex. Warmth at left knee and foot. NEUROLOGICAL: Kyphosis of spine. Cranial nerves II through XII grossly intact. Normal speech,normal gait SKIN: Warm, Dry, normal turgor, no rashes or lesions noted. <Angelica Son - Last Filed: 02/06/18 00:54> - Vital Signs Last Vital Signs Temp Pulse Resp BP Pulse Ox 99.0 F 88 18 119/59 L 98 02/05/18 21:53 02/05/18 21:53 02/05/18 21:53 02/05/18 21:53 02/05/18 21:53 <Subha Donaldson - Last Filed: 02/06/18 20:13> Procedures - Arthrocentesis Indication: Septic Joint, Inflammation, Reduce Pain Arthrocentesis Site: left: knee Flexion: 20-30 degree Betadine Prep: Yes Sterile Dressing Applied: Yes Dry Tap: Yes Fluid Color: Yellow Fluid Amount mL: 15 (26ml removed) Anesthesia: 1% Lidocaine w/ Epi Needle Size (guage): 18g Complications: No <Subha Donaldson - Last Filed: 02/06/18 20:13> ED Treatment Course - LABORATORY CBC & Chemistry Diagram: 02/05/18 00:05 02/05/18 00:05 <Angelica Son - Last Filed: 02/06/18 00:54> - LABORATORY CBC & Chemistry Diagram: 02/05/18 00:05 02/05/18 00:05 - RADIOLOGY Radiology Studies Ordered: Category Date Time Status LUMBAR SPINE CT W/O CONTRAST [CT] Stat CT Scan 02/05/18 21:[address] W/O CONTRAST [CT] Stat CT Scan 02/05/18 21:58 Ordered CHEST X-RAY PORTABLE* [RAD] Stat Radiology 02/05/18 21:59 Ordered <Subha Donaldson - Last Filed: 02/06/18 20:13> Medical Decision Making - Medical Decision Making 02/06/18 20:10 Pt will be admitted for her fever. We couldn't find a source for the patient's fever. However, her left knee was swollen and slightly hot on arrival. We tapped the knee and injected Lido with epi for comfort at the end of the procedure. Pt also placed in a knee immobilizer, as she states that she feels like she cannot move the left leg and knee, as she feels like the knee will break. <Subha Donaldson - Last Filed: 02/06/18 20:13> *DC/Admit/Observation/Transfer <Angelica Son - Last Filed: 02/06/18 00:54> <Subha Donaldson - Last Filed: 02/06/18 20:13> Diagnosis at time of Disposition: Sepsis - Discharge Dispostion Disposition: HOME Condition at time of disposition: Stable
[2018-02-05] MEDS ORDERED: CEFTRIAXONE 1 GM in DEXTROSE 5%-WATER - 50 ML IVPB ONE (22:04)
--- NOTE | 2018-02-05 23:25 | PDOC ---
History of Present Illness - General Chief Complaint: SIRS, Suspected/Possible Stated Complaint: FEVER Time Seen by Provider: 02/05/18 23:14 History Source: Patient Exam Limitations: No Limitations - History of Present Illness Initial Comments: 02/05/18 23:25 67 year old woman with history of metastatic breast cancer to the L femur, clavicle and spine who presents with difficulty ambulating 2/2 leg pain for 3 days and with fever of 103F 1 hour prior to arrival. The patient was seen in the ED this AM. Duplex of lower extremity was done and was negative, Dr. Groves (oncologist) was contacted and fentanyl patch and morphine was recommended for pain management with follow up out patient. The patient was home and was resting comfortably however granddaughter noted the patient was red in the face , sweating and had a fever of 103F. Granddaughter gave patient 400mg ibuprofen and called Dr. Groves, who advised patient be brought back to the ED for evaluation. Patient not on chemotherapy or radiation. Past History - Past Medical History Allergies/Adverse Reactions: Allergies Allergy/AdvReac Type Severity Reaction Status Date / Time No Known Drug Allergies Allergy Verified 02/05/18 21:55 Home Medications: Ambulatory Orders Alprazolam [Xanax] 1 mg PO HS 05/30/17 Gabapentin 300 mg PO TID 05/30/17 Lisinopril/Hydrochlorothiazide [Lisinopril-Hctz 10-12.5 mg Tab] 1 each PO DAILY 05/30/17 Metoprolol Succinate [Toprol Xl] 25 mg PO DAILY 05/30/17 Tramadol HCl 50 mg PO PRN 05/30/17 Omeprazole 20 mg PO DAILY 02/05/18 Oxycodone HCl/Acetaminophen [Oxycodon-Acetaminophen 7.5-325] 1 each PO Q4H PRN 02/05/18 predniSONE [Deltasone -] 10 mg PO DAILY #14 tablet 02/13/18 Anemia: No Asthma: No Cancer: Yes (breast cancer left, bone) Cardiac Disorders: No CVA: No COPD: No CHF: No Dementia: No Diabetes: No GI Disorders: No Disorders: No HTN: Yes Hypercholesterolemia: No Liver Disease: No Seizures: No Thyroid Disease: No - Surgical History Abdominal Surgery: Yes Appendectomy: No Cardiac Surgery: No Cholecystectomy: No Lung Surgery: No Neurologic Surgery: No Orthopedic Surgery: No - Immunization History Immunization Up to Date: Yes - Suicide/Smoking/Psychosocial Hx Smoking History: Never smoked Have you smoked in the past 12 months: No Hx Alcohol Use: No Drug/Substance Use Hx: No Substance Use Type: None Hx Substance Use Treatment: No Review of Systems - Review of Systems Able to Perform ROS?: Yes Is the patient limited Somali proficient: No Constitutional: Yes: Fever. No: Chills, Diaphoresis HEENTM: No: Blurred Vision, Tinnitus Respiratory: No: Cough, Orthopnea, Shortness of Breath ABD/GI: No: Constipated, Diarrhea, Nausea, Vomiting : No: Burning, Dysuria, Hematuria Musculoskeletal: No: Back Pain, Muscle Pain, Muscle Weakness Neurological: No: Headache, Numbness, Tingling *Physical Exam - Vital Signs Last Vital Signs Temp Pulse Resp BP Pulse Ox 99.0 F 88 18 119/59 L 98 02/05/18 21:53 02/05/18 21:53 02/05/18 21:53 02/05/18 21:53 02/05/18 21:53 - Physical Exam Comments: 02/05/18 23:47 GENERAL: Awake, alert, and fully oriented, in no acute distress HEAD: No signs of trauma, normocephalic, atraumatic EYES: EOMI, sclera anicteric, conjunctiva clear ENT:oropharynx clear without exudates. Moist mucosa NECK: Normal ROM, supple, no lymphadenopathy LUNGS: No distress, speaks full sentences, clear to auscultation bilaterally HEART: Regular rate and rhythm, normal S1 and S2, no murmurs, rubs or gallops, peripheral pulses normal and equal bilaterally. ABDOMEN: Soft, nontender, normoactive bowel sounds. No guarding, no rebound. No masses EXTREMITIES : Normal inspection, Normal range of motion, + L lower extrem warm to touch. + L knee edema, w/ warmth to touch NEUROLOGICAL: Cranial nerves II through XII grossly intact. Normal speech, no focal sensorimotor deficits SKIN: Warm, Dry, normal turgor, no rashes or lesions noted Procedures - Arthrocentesis Indication: Inflammation Arthrocentesis Site: left: knee Flexion: 20-30 degree Betadine Prep: Yes Sterile Dressing Applied: Yes Dry Tap: No Fluid Color: Straw colored Fluid Amount mL: 15 Anesthesia: 1% Lidocaine Needle Size (guage): 18g Complications: No ED Treatment Course - LABORATORY CBC & Chemistry Diagram: 02/10/18 05:30 02/10/18 05:30 Medical Decision Making - Medical Decision Making 02/05/18 23:49 67 year old woman with history of metastatic breast cancer to the L femur, clavicle and spine who presents with difficulty ambulating for 3 days and with fever of 103F 1 hour prior to arrival. The patient was seen in the ED this AM. Duplex of lower extremity was done and was negative, Dr. Groves (oncologist) was contacted and fentanyl patch and morphine was recommended for pain management with follow up out patient. DDX including but not limited to: sepsis 2/2 UTI vs PNA vs cellulitis vs osteomyelitis W/U: - cbc, cmp - ua, ucx TX: - ED Course: Patient with stable vitals. 02/06/18 01:30 lactic of 3.3 02/06/18 05:29 Arthrocentesis performed to L knee. 02/14/18 18:39 Patient admitted to medicine *DC/Admit/Observation/Transfer Diagnosis at time of Disposition: Sepsis - Discharge Dispostion Disposition: HOME Condition at time of disposition: Stable Decision to Admit order: Yes - Prescriptions - Referrals - Patient Instructions - Post Discharge Activity
[2018-02-05] MEDS ORDERED: ACETAMINOPHEN 1000 MG/100 ML VIAL (NON FORMULARY) IVPB ONE (23:29)
[2018-02-06] MEDS ORDERED: ACETAMINOPHEN INJECTION 100 ML IVPB ONE (00:11)
[2018-02-06] MEDS ORDERED: VANCOMYCIN 1 GRAM (PRE-DOCKED) 1,000 MG/250 ML BAG IVPB ONE (00:12)
[2018-02-06] MEDS ORDERED: CEFTRIAXONE 1 GM/50 ML BAG ONE (00:12)
[2018-02-06 00:16] LABS: BASO % 0.6 % (0-2.0); EOS % 0.7 % (0-4.5); HEMATOCRIT 34.6 % (32.4-45.2); HEMOGLOBIN 11.4 GM/dL (10.7-15.3); LYMPH % 13.4 % (8-40); MCH 26.9 pg (25.7-33.7); MCHC 32.8 g/dl (32.0-36.0); MEAN PLT VOLUME 7.9 fl (7.5-11.1); MONO % 8.8 % (3.8-10.2); NEUT % 76.5 % (42.8-82.8); PLATELET COUNT 226 K/MM3 (134-434); RBC 4.22 M/mm3 (3.60-5.2); RDW 14.8 % (11.6-15.6); WHITE BLOOD COUNT 7.1 K/mm3 (4.0-10.0)
[2018-02-06 00:17] LABS: VENOUS PC02 44.5 mmHg (38-52); VENOUS PH 7.31 (7.32-7.42); VENOUS PO2 32.1 mmHg (28-48)
[2018-02-06 00:28] LABS: INR 1.01 (0.83-1.09); PROTHROMBIN TIME (PATIENT) 11.9 SEC (9.7-13.0)
[2018-02-06 00:34] LABS: URINE APPEARANCE CLEAR; URINE BILIRUBIN NEGATIVE (<2.0 mg/dL); URINE COLOR YELLOW; URINE GLUCOSE (UA) NEGATIVE (NEGATIVE); URINE KETONE NEGATIVE (NEGATIVE); URINE LEUK ESTERASE NEGATIVE (NEGATIVE); URINE NITRITE NEGATIVE (NEGATIVE); URINE PROTEIN NEGATIVE (NEGATIVE); URINE UROBILINOGEN NEGATIVE mg/dL (0.2-1.0)
[2018-02-06 00:40] LABS: ALBUMIN 3.9 g/dl (3.4-5.0); ALK PHOS 70 U/L (45-117); ANION GAP 12 MMOL/L (8-16); BILIRUBIN,TOTAL 1.5 mg/dL (0.2-1); BLOOD UREA NITROGEN 14 mg/dL (7-18); CALCIUM 8.4 mg/dL (8.5-10.1); CHLORIDE 102 mmol/L (98-107); CO2 23 mmol/L (21-32); CREATININE 1.2 mg/dL (0.55-1.3); GLUCOSE,RANDOM 184 mg/dL (74-106); POTASSIUM 3.9 mmol/L (3.5-5.1); SGOT/AST 16 U/L (15-37); SGPT/ALT 25 U/L (13-61); SODIUM 137 mmol/L (136-145); TOT PROT 7.4 g/dl (6.4-8.2)
[2018-02-06] MEDS ORDERED: SODIUM CHLORIDE 1,000 ML IV SCH ×2 (00:45→03:45)
[2018-02-06] MEDS ORDERED: PIPERACILLIN/TAZOB 3.375 GM 3.375 GM in DEXTROSE 5%-WATER - 50 ML IVPB ONE (04:26)
[2018-02-06] MEDS ORDERED: PIPERACILLIN/TAZOB 3.375 GM 3.375 GM/50 ML BAG IVPB ONE (05:32)
--- NOTE | 2018-02-06 05:47 | HP ---
CHIEF COMPLAINT: fever PCP: Oncology: Cole HISTORY OF PRESENT ILLNESS: This is a 67 year old female with a past medical history of HTN, BrCA with mets who presented to the ED with fever x 1 hour MONITORING TECH. She presented earlier today for left leg pain as well. Her oncologist was consulted and the covering MD recommended starting fentanyl patch and percocet. She was DC home s/p improvement of pain with same. She then developed fever after returning home and was advised to return to the ED by her oncologist. Her family gave her ibuprofen 400mg MONITORING TECH. ER course was notable for: (1) WBC 7.6 (2) WBC 3.5-->0.8 Recent Travel: pt denies PAST MEDICAL HISTORY: BrCA with mets to left femur, clavicle, spine, ribs; HTN; GERD; anxiety PAST SURGICAL HISTORY: tubal ligation Social History: Smoking: pt denies Alcohol: pt denies Drugs: pt denies Family History: mother s/p PA, h/o DM father young, "killed himself" sisters with DM one brother s/p CVA, HTN Allergies No Known Drug Allergies Allergy (Verified 02/05/18 21:55) HOME MEDICATIONS: 3 Medication Instructions Recorded Alprazolam [Xanax] 0.25 mg PO TID 05/30/17 Gabapentin 300 mg PO TID 05/30/17 Lisinopril/Hydrochlorothiazide 1 each PO DAILY 05/30/17 [Lisinopril-Hctz 10-12.5 mg Tab] Metoprolol Succinate [Toprol Xl] 25 mg PO DAILY 05/30/17 Tramadol HCl 50 mg PO PRN 05/30/17 Omeprazole 20 mg PO DAILY 02/05/18 Oxycodone HCl/Acetaminophen 1 each PO Q4H PRN 02/05/18 [Oxycodon-Acetaminophen 7.5-325] REVIEW OF SYSTEMS CONSTITUTIONAL: Present: fever Absent: chills, diaphoresis, generalized weakness, malaise, loss of appetite, weight change HEENT: Absent: rhinorrhea, nasal congestion, throat pain, throat swelling, difficulty swallowing, mouth swelling, ear pain, eye pain, visual changes CARDIOVASCULAR: Absent: chest pain, syncope, palpitations, irregular heart rate, lightheadedness , peripheral edema RESPIRATORY: Absent: cough, shortness of breath, dyspnea with exertion, orthopnea, wheezing, stridor, hemoptysis GASTROINTESTINAL: Absent: abdominal pain, abdominal distension, nausea, vomiting, diarrhea, constipation, melena, hematochezia GENITOURINARY: Absent: dysuria, frequency, urgency, hesitancy, hematuria, flank pain, genital pain MUSCULOSKELETAL: Present: joint swelling Absent: myalgia, arthralgia, back pain, neck pain SKIN: Absent: rash, itching, pallor HEMATOLOGIC/IMMUNOLOGIC: Absent: easy bleeding, easy bruising, lymphadenopathy, frequent infections ENDOCRINE: Absent: unexplained weight gain, unexplained weight loss, heat intolerance, cold intolerance NEUROLOGIC: Absent: headache, focal weakness or paresthesias, dizziness, unsteady gait, seizure, mental status changes, bladder or bowel incontinence PSYCHIATRIC: Absent: anxiety, depression, suicidal or homicidal ideation, hallucinations. PHYSICAL EXAMINATION Vital Signs - 24 hr 3 02/05/18 02/06/18 02/06/18 21:53 00:59 03:29 Temperature 99.0 F 98.3 F 98.3 F Pulse Rate 88 72 Pulse Rate [ Right Radial] Respiratory 18 16 Rate Blood Pressure 119/59 L 122/68 Blood Pressure [Right Arm] O2 Sat by Pulse 98 98 Oximetry (%) 3 02/06/18 05:25 Temperature 98.3 F Pulse Rate Pulse Rate [ 79 Right Radial] Respiratory 16 Rate Blood Pressure Blood Pressure 127/68 [Right Arm] O2 Sat by Pulse 100 Oximetry (%) GENERAL: Awake, alert, and fully oriented, in no acute distress. HEAD: Normal with no signs of trauma. EYES: Pupils equal, round and reactive to light, extraocular movements intact, sclera anicteric, conjunctiva clear. No lid lag. EARS, NOSE, THROAT: Ears normal, nares patent, oropharynx clear without exudates. Moist mucous membranes. NECK: Normal range of motion, supple without lymphadenopathy, JVD, or masses. LUNGS: Breath sounds equal, clear to auscultation bilaterally. No wheezes, and no crackles. No accessory muscle use. HEART: Regular rate and rhythm, normal S1 and S2 without murmur, rub or gallop. ABDOMEN: Soft, nontender, not distended, normoactive bowel sounds, no guarding, no rebound, no masses. No hepatomegaly or splenomegaly. MUSCULOSKELETAL: Normal range of motion at all joints except left knee; decreased ROM due to pain. No bony deformities or tenderness. No CVA tenderness. + pain to left knee, left ankle on palpation; slight erythema to left medial foot with soft tissue swelling. + swelling noted to left knee with warmth UPPER EXTREMITIES: 2+ pulses, warm, well-perfused. No cyanosis. No clubbing. No peripheral edema. LOWER EXTREMITIES: 2+ pulses, warm, well-perfused. No calf tenderness. No peripheral edema. NEUROLOGICAL: Cranial nerves II-XII intact. Normal speech. Normal gait. PSYCHIATRIC: Cooperative. Good eye contact. Appropriate mood and affect. SKIN: Warm, dry, normal turgor, no rashes or lesions noted, normal capillary refill. Laboratory Results - last 24 hr 3 02/05/18 02/05/18 02/05/18 00:05 00:05 00:05 WBC 7.1 RBC 4.22 Hgb 11.4 Hct 34.6 MCV 82.0 MCH 26.9 MCHC 32.8 RDW 14.8 Plt Count 226 MPV 7.9 Absolute Neuts (auto) 5.5 Neutrophils % 76.5 D Lymphocytes % 13.4 D Monocytes % 8.8 Eosinophils % 0.7 Basophils % 0.6 Nucleated RBC % 0 PT with INR 11.90 INR 1.01 PTT (Actin FS) 43.0 H VBG pH 7.31 L POC VBG pCO2 44.5 D POC VBG pO2 32.1 Mixed VBG HCO3 21.6 Sodium Potassium Chloride Carbon Dioxide Anion Gap BUN Creatinine Creat Clearance w eGFR Random Glucose Lactic Acid Calcium Total Bilirubin AST ALT Alkaline Phosphatase Creatine Kinase CK-MB (CK-2) Troponin I Total Protein Albumin Urine Color Urine Appearance Urine pH Ur Specific [place] Urine Protein Urine Glucose (UA) Urine Ketones Urine Blood Urine Nitrite Urine Bilirubin Urine Urobilinogen Ur Leukocyte Esterase 3 02/05/18 02/05/18 02/05/18 02/05/18 00:05 00:05 00:05 03:32 WBC RBC Hgb Hct MCV MCH MCHC RDW Plt Count MPV Absolute Neuts (auto) Neutrophils % Lymphocytes % Monocytes % Eosinophils % Basophils % Nucleated RBC % PT with INR INR PTT (Actin FS) VBG pH POC VBG pCO2 POC VBG pO2 Mixed VBG HCO3 Sodium 137 Potassium 3.9 Chloride 102 Carbon Dioxide 23 Anion Gap 12 BUN 14 Creatinine 1.2 Creat Clearance w eGFR 45.09 Random Glucose 184 H Lactic Acid 3.5 H* 0.8 Calcium 8.4 L Total Bilirubin 1.5 H AST 16 ALT 25 Alkaline Phosphatase 70 Creatine Kinase 131 CK-MB (CK-2) < 1.0 Troponin I < 0.02 Total Protein 7.4 Albumin 3.9 Urine Color Urine Appearance Urine pH Ur Specific [place] Urine Protein Urine Glucose (UA) Urine Ketones Urine Blood Urine Nitrite Urine Bilirubin Urine Urobilinogen Ur Leukocyte Esterase 3 Urine Color Yellow 02/05/18 00:15 Urine Appearance Clear 02/05/18 00:15 Urine pH 5.0 (5.0-8.0) D 02/05/18 00:15 Ur Specific [place] 1.017 (1.010-1.035) 02/05/18 00:15 Urine Protein Negative (NEGATIVE) 02/05/18 00:15 Urine Glucose (UA) Negative (NEGATIVE) 02/05/18 00:15 Urine Ketones Negative (NEGATIVE) 02/05/18 00:15 Urine Blood Negative (NEGATIVE) 02/05/18 00:15 Urine Nitrite Negative (NEGATIVE) 02/05/18 00:15 Urine Bilirubin Negative (<2.0 mg/dL) 02/05/18 00:15 Ur Leukocyte Esterase Negative (NEGATIVE) 02/05/18 00:15 ECG Normal sinus rhythm vent rate 69, QTC [address]/T wave changes Xray results pending ASSESSMENT/PLAN: 67yF with PMH BrCA with mets to left femur, clavicle, spine, ribs; HTN; GERD; anxiety presented to the ED with fever and left leg pain. Sepsis secondary to left knee joint infection - given zosyn and vancomycin in ED - arthrocentesis done by ED MD after antibiotic administration, sent for cell count, crystals and culture - ID consult - consider ortho consult - cont fentanyl and percocet BrCA - pt reports her medication was stopped Thursday, ? hormonal oncologic - oncology consult HTN - cont home meds GERD - home omeprazole changed to formulary protonix anxiety - cont home xanax DVT PPX - lovenox 40mg SC FEN - tolerating po fluids, s/p 2L NS - BMP in am - low sodium diet as tolerated Dispo: Pt currently requires further inpatient management of her emergent condition Visit type - Emergency Visit Emergency Visit: Yes ED Registration Date: 02/05/18 Care time: The patient presented to the Emergency Department on the above date and was hospitalized for further evaluation of their emergent condition. - New Patient This patient is new to me today: Yes Date on this admission: 02/06/18 - Critical Care Critical Care patient: No
[2018-02-06] MEDS ORDERED: PATIENT'S OWN MEDICATION (NON-FORMULARY) (Oxycodone Hcl/Acetaminophen [Oxycodon-Acetaminop PO PRN (05:53)
[2018-02-06] MEDS ORDERED: GABAPENTIN 100 MG CAPSULE (FP) ONE (06:17)
[2018-02-06] MEDS: GABAPENTIN 300 MG CAPSULE (FP) PO SCH ×3 (06:34→21:31)
--- NOTE | 2018-02-06 09:35 | CON.ID ---
Consult Consult Specialty:: infectious disease Referred by:: fever Reason for Consultation:: fever - History of Present Illness Chief Complaint: 67 yo female with worsening left leg pain History of Present Illness: she was seen in ED on 02/05 with worsening left leg pain- history of metastatic breast cancer-duplex negative, known mets to femur d/catalino on fentanyl patch with f/u on Thursday after going home daughter noted she was flushed, had fever to 103 with chills took motrin and came to ED noted to have some swelling of the left knee arthrocentesis was done in Ed- 155 cc fluid removed and sent for studies- ALL pending no fevers since not neutroopenic started on fasiodex on 02/02 reports leg pains have been worsening along with left clavicle pain no cough no diarrhea no dysuria no abd pain or chest pain has port received vanco/zosyn/ceftraixone in ed reports RT to back and left leg last year - History Source History Provided By: Patient, Medical Record Limitations to Obtaining History: No Limitations - Past Medical History Cardio/Vascular: Yes: HTN Gastrointestinal: Yes: GERD Heme/Onc: Yes: Cancer (metastatic breast cancer s/p RT to back and left leg ) Psych: Yes: Anxiety - Past Surgical History Past Surgical History: Yes: Cholecystectomy, Hysterectomy Additional Surgical History: port -right chest wall - Alcohol/Substance Use Hx Alcohol Use: No History of Substance Use: reports: None - Smoking History Smoking history: Never smoked Have you smoked in the past 12 months: No - Social History Usual Living Arrangement: With Child ADL: Independent History of Recent Travel: Yes (just returned from [facility] 01/19) Home Medications - Allergies Allergies/Adverse Reactions: Allergies Allergy/AdvReac Type Severity Reaction Status Date / Time No Known Drug Allergies Allergy Verified 02/05/18 21:55 - Home Medications Home Medications: Ambulatory Orders Alprazolam [Xanax] 1 mg PO HS 05/30/17 Gabapentin 300 mg PO TID 05/30/17 Lisinopril/Hydrochlorothiazide [Lisinopril-Hctz 10-12.5 mg Tab] 1 each PO DAILY 05/30/17 Metoprolol Succinate [Toprol Xl] 25 mg PO DAILY 05/30/17 Tramadol HCl 50 mg PO PRN 05/30/17 Omeprazole 20 mg PO DAILY 10/19/18 Oxycodone HCl/Acetaminophen [Oxycodon-Acetaminophen 7.5-325] 1 each PO Q4H PRN 02/05/18 Family Disease History - Family Disease History Family Disease History: CA: Brother, Sister Review of Systems - Review of Systems Constitutional: reports: Fever Eyes: denies: No Symptoms HENT: reports: No Symptoms Neck: reports: No Symptoms Cardiovascular: reports: No Symptoms Respiratory: reports: No Symptoms Gastrointestinal: reports: No Symptoms Genitourinary: reports: No Symptoms Breasts: reports: No Symptoms Reported Musculoskeletal: reports: Extremity Pain, Joint Pain, Joint Swelling Integumentary: reports: No Symptoms Neurological: reports: No Symptoms Physical Exam Vital Signs: Vital Signs Temperature 98.3 F 02/06/18 05:25 Pulse Rate 79 02/06/18 05:25 Respiratory Rate 16 02/06/18 05:25 Blood Pressure 127/68 02/06/18 05:25 O2 Sat by Pulse Oximetry (%) 100 02/06/18 05:25 Constitutional: Yes: Well Nourished, No Distress, Calm Eyes: Yes: Conjunctiva Clear HENT: No: Pharyngeal Erythema, Thrush, Tonsillar Exudate Neck: Yes: Supple, Trachea Midline, Other (port nontender, no erythema) Cardiovascular: Yes: Regular Rate and Rhythm Respiratory: Yes: Regular, CTA Bilaterally Gastrointestinal: Yes: Normal Bowel Sounds, Soft. No: Tenderness ...Rectal Exam: Yes: Deferred Musculoskeletal: Yes: Back Pain, Joint Swelling (left knee swelling, minimal , no erythema, increased warmth compared to other leg) Labs: CBC, BMP 02/05/18 00:05 02/05/18 00:05 Imaging - Results Chest X-ray: Report Reviewed, Image Reviewed X-ray: Report Reviewed Problem List - Problems (1) Fever Code(s): R50.9 - FEVER, UNSPECIFIED (2) Swelling of left knee joint Code(s): M25.462 - EFFUSION, LEFT KNEE (3) Metastatic breast cancer Code(s): C50.919 - MALIGNANT NEOPLASM OF UNSP SITE OF UNSPECIFIED FEMALE BREAST Assessment/Plan fever is 67 yo female with metastatic breast cancer not neutropenic await blood cultures and knee fluid analysis doubt septic knee source of fever unclear-?side effect of chemo? she looks well no dvt looks well continue vanco/ceftriaxone until cultures are back
[2018-02-06] MEDS ORDERED: PATIENT'S OWN MEDICATION (NON-FORMULARY) (Lisinopril/Hydrochlorothiazide [Lisinopril-Hctz PO SCH (10:00)
[2018-02-06] MEDS: LISINOPRIL 10 MG TABLET (FP) PO SCH (11:16)
[2018-02-06] MEDS: HYDROCHLOROTHIAZIDE 12.5 MG CAPSULE (FP) PO SCH (11:16)
[2018-02-06] MEDS: PANTOPRAZOLE 20 MG TABLET (FP) PO SCH (11:16)
[2018-02-06] MEDS: metoPROLOL SUCCINATE 25 MG TAB.SR.24H (FP) PO SCH (11:16)
--- NOTE | 2018-02-06 11:20 | PN ---
Physical Exam: SUBJECTIVE: Patient seen and examined at the bedside. OBJECTIVE: Vital Signs Period Temp Pulse Resp BP Sys/Nuñez Pulse Ox Last 24 Hr 98.3 F-99.0 F 72-88 16-18 119-127/59-68 98-100 GENERAL: The patient is awake, alert, and fully oriented, in no acute distress. HEAD: Normal with no signs of trauma. EYES: PERRL, extraocular movements intact, sclera anicteric, conjunctiva clear. No ptosis. ENT: Ears normal, nares patent, oropharynx clear without exudates, moist mucous membranes. NECK: Trachea midline, full range of motion, supple. LUNGS: Breath sounds equal, clear to auscultation bilaterally ABDOMEN: Soft, nontender, nondistended, normoactive bowel sounds, no guarding, no rebound, no hepatosplenomegaly, no masses. EXTREMITIES: left knee s/p drainage of fluid, bandaid, no redness +pain, pain of left foot, will xray, NEUROLOGICAL: Normal speech, gait not observed. PSYCH: Normal mood, normal affect. SKIN: Warm, dry, normal turgor, no rashes or lesions noted Laboratory Results - last 24 hr 02/05/18 02/05/18 02/05/18 00:05 00:05 00:05 WBC 7.1 RBC 4.22 Hgb 11.4 Hct 34.6 MCV 82.0 MCH 26.9 MCHC 32.8 RDW 14.8 Plt Count 226 MPV 7.9 Absolute Neuts (auto) 5.5 Neutrophils % 76.5 D Lymphocytes % 13.4 D Monocytes % 8.8 Eosinophils % 0.7 Basophils % 0.6 Nucleated RBC % 0 PT with INR 11.90 INR 1.01 PTT (Actin FS) 43.0 H VBG pH 7.31 L POC VBG pCO2 44.5 D POC VBG pO2 32.1 Mixed VBG HCO3 21.6 Sodium Potassium Chloride Carbon Dioxide Anion Gap BUN Creatinine Creat Clearance w eGFR Random Glucose Lactic Acid Calcium Total Bilirubin AST ALT Alkaline Phosphatase Creatine Kinase CK-MB (CK-2) Troponin I Total Protein Albumin Urine Color Urine Appearance Urine pH Ur Specific [place] Urine Protein Urine Glucose (UA) Urine Ketones Urine Blood Urine Nitrite Urine Bilirubin Urine Urobilinogen Ur Leukocyte Esterase Fluid WBC Fluid RBC 02/05/18 02/05/18 02/05/18 00:05 00:05 00:05 WBC RBC Hgb Hct MCV MCH MCHC RDW Plt Count MPV Absolute Neuts (auto) Neutrophils % Lymphocytes % Monocytes % Eosinophils % Basophils % Nucleated RBC % PT with INR INR PTT (Actin FS) VBG pH POC VBG pCO2 POC VBG pO2 Mixed VBG HCO3 Sodium 137 Potassium 3.9 Chloride 102 Carbon Dioxide 23 Anion Gap 12 BUN 14 Creatinine 1.2 Creat Clearance w eGFR 45.09 Random Glucose 184 H Lactic Acid 3.5 H* Calcium 8.4 L Total Bilirubin 1.5 H AST 16 ALT 25 Alkaline Phosphatase 70 Creatine Kinase 131 CK-MB (CK-2) < 1.0 Troponin I < 0.02 Total Protein 7.4 Albumin 3.9 Urine Color Urine Appearance Urine pH Ur Specific [place] Urine Protein Urine Glucose (UA) Urine Ketones Urine Blood Urine Nitrite Urine Bilirubin Urine Urobilinogen Ur Leukocyte Esterase Fluid WBC Fluid RBC 02/05/18 02/06/18 02/06/18 00:15 03:32 05:37 WBC RBC Hgb Hct MCV MCH MCHC RDW Plt Count MPV Absolute Neuts (auto) Neutrophils % Lymphocytes % Monocytes % Eosinophils % Basophils % Nucleated RBC % PT with INR INR PTT (Actin FS) VBG pH POC VBG pCO2 POC VBG pO2 Mixed VBG HCO3 Sodium Potassium Chloride Carbon Dioxide Anion Gap BUN Creatinine Creat Clearance w eGFR Random Glucose Lactic Acid 0.8 Calcium Total Bilirubin AST ALT Alkaline Phosphatase Creatine Kinase CK-MB (CK-2) Troponin I Total Protein Albumin Urine Color Yellow Urine Appearance Clear Urine pH 5.0 D Ur Specific [place] 1.017 Urine Protein Negative Urine Glucose (UA) Negative Urine Ketones Negative Urine Blood Negative Urine Nitrite Negative Urine Bilirubin Negative Urine Urobilinogen Negative Ur Leukocyte Esterase Negative Fluid WBC 48,374 Fluid RBC 4,484 Active Medications Generic Name Dose Route Start Last Admin Trade Name Freq PRN Reason Stop Dose Admin Acetaminophen 325 mg 02/06/18 06:03 Tylenol - PO Q4H PRN PAIN LEVEL 7 - 10 Enoxaparin Sodium 40 mg 02/06/18 10:00 Lovenox - SQ DAILY CARTER Fentanyl 1 patch 02/08/18 10:00 Duragesic 12mcg Patch - TD Q72H CARTER Gabapentin 300 mg 02/06/18 06:00 02/06/18 06:34 Neurontin - PO 300 mg TID CARTER Administration Hydrochlorothiazide 12.5 mg 02/06/18 10:00 02/06/18 11:16 Hctz - PO 12.5 mg DAILY CARTER Administration Sodium Chloride 1,000 mls @ 0 mls/hr 02/06/18 00:45 02/06/18 00:50 Normal Saline - IV 1,000 mls/hr ASDIR CARTER Administration Wide Open Ceftriaxone Sodium 2 gm in 50 mls @ 100 mls/hr 02/07/18 10:00 Ceftriaxone 2 Gm-D5w Bag IVPB DAILY CARTER Protocol Vancomycin HCl 1,000 mg in 250 mls @ 166.667 mls/hr 02/06/18 20:00 Vancomycin (Pre-Docked) IVPB Q24H CARTER Protocol Lisinopril 10 mg 02/06/18 10:00 02/06/18 11:16 Prinivil PO 10 mg DAILY CARTER Administration Metoprolol Succinate 25 mg 02/06/18 10:00 02/06/18 11:16 Toprol Xl - PO 25 mg DAILY CARTER Administration Miscellaneous 1 each 02/06/18 06:22 Duragesic Patch Waste TD PRN PRN PAIN Oxycodone HCl 7.5 mg 02/06/18 06:02 Roxicodone - PO Q4H PRN PAIN LEVEL 7 - 10 Pantoprazole Sodium 20 mg 02/06/18 10:00 02/06/18 11:16 Protonix - PO 20 mg DAILY CARTER Administration Tramadol HCl 50 mg 02/06/18 05:53 Ultram - PO Q6H PRN PAIN LEVEL 4 - 6 ASSESSMENT/PLAN: Patient is a 67 year old female with a significant past medical history of hypertension, breast cancer with mets to left femur, clavicle, spine, ribs. She presented to the Ed with fever and left leg pain. Ortho/ID: Sepsis, likely secondary to left knee joint infection/pain. Started on zosyn and vanco. Culture of left knee joint sent s/p arthocentesis. Ortho consulted. ID following. pain managed with Fentanul patch and Oxycodone for breakthrough pain Monitor labs, vitals Onc. Breast cancer with mets Oncology following fen tolerating PO monitor electrolytes low salt diet prophy Lovenox disposition full code Visit type - Emergency Visit Emergency Visit: Yes ED Registration Date: 02/06/18 Care time: The patient presented to the Emergency Department on the above date and was hospitalized for further evaluation of their emergent condition. - New Patient This patient is new to me today: Yes Date on this admission: 02/06/18 - Critical Care Critical Care patient: No - Discharge Referral Referred to [facility] Med [facility] No
[2018-02-06] MEDS: ACETAMINOPHEN 325 MG TABLET (FP) PO PRN (11:27)
[2018-02-06] MEDS: oxyCODONE HCL 5 MG TABLET PO PRN ×2 (11:28→21:27)
[2018-02-06 11:43] VITALS: BMI 25.9
[2018-02-06] MEDS ORDERED: MAG HYDROX/AL HYDROX/SIMETH 30 ML UNIT-DOSE CUP PO ONE (11:51)
[2018-02-06] MEDS: ENOXAPARIN NA (PORCINE) 40 MG/0.4 ML DISP.SYRIN SQ SCH (12:20)
[2018-02-06 13:07] LABS: PLEURAL FLUID MONOCYTE 7 %
--- NOTE | 2018-02-06 15:15 | CONSULT ---
Consult - text type - Consultation Consultation Note: This is a 67 year old female with a past medical history of HTN, breast cancer with mets who presented to the ED with fever . She presented earlier yesterday for left leg pain to ER--duplex was negative and she was discharged. She then developed fever after returning home and returned to ER c/o left heel and left leg pain PAST MEDICAL HISTORY: BrCA with mets to left femur, clavicle, spine, ribs; HTN; GERD; anxiety PAST SURGICAL HISTORY: tubal ligation Social History: Smoking: pt denies Alcohol: pt denies Drugs: pt denies Family History: mother s/p MS, h/o DM father young, "killed himself" sisters with DM one brother s/p CVA, HTN Allergies No Known Drug Allergies Allergy (Verified 02/05/18 21:55) HOME MEDICATIONS: 3 Medication Instructions Recorded Alprazolam [Xanax] 0.25 mg PO TID 05/30/17 Gabapentin 300 mg PO TID 05/30/17 Lisinopril/Hydrochlorothiazide 1 each PO DAILY 05/30/17 [Lisinopril-Hctz 10-12.5 mg Tab] Metoprolol Succinate [Toprol Xl] 25 mg PO DAILY 05/30/17 Tramadol HCl 50 mg PO PRN 05/30/17 Omeprazole 20 mg PO DAILY 02/05/18 Oxycodone HCl/Acetaminophen 1 each PO Q4H PRN 02/05/18 [Oxycodon-Acetaminophen 7.5-325] Last Vital Signs Temp Pulse Resp BP Pulse Ox 98.6 F 87 17 125/65 100 02/06/18 14:38 02/06/18 14:38 02/06/18 14:38 02/06/18 14:38 02/06/18 13:59 Cor: RSR, No murmurs, No gallops Lungs: Clear to P&A Abd: Soft, Normal bowel sounds, No organomegaly Ext:No significant edema Abnormal Lab Results 02/05/18 02/05/18 02/05/18 00:05 00:05 00:05 PTT (Actin FS) 43.0 H VBG pH 7.31 L Random Glucose 184 H Lactic Acid Calcium 8.4 L Total Bilirubin 1.5 H 02/05/18 00:05 PTT (Actin FS) VBG pH Random Glucose Lactic Acid 3.5 H* Calcium Total Bilirubin Active Medications Generic Name Dose Route Start Last Admin Trade Name Freq PRN Reason Stop Dose Admin Acetaminophen 325 mg 02/06/18 06:03 02/06/18 11:27 Tylenol - PO 325 mg Q4H PRN Administration PAIN LEVEL 7 - 10 Enoxaparin Sodium 40 mg 02/06/18 10:00 02/06/18 12:20 Lovenox - SQ 40 mg DAILY CARTER Administration Fentanyl 1 patch 02/08/18 10:00 Duragesic 12mcg Patch - TD Q72H CARTER Gabapentin 300 mg 02/06/18 06:00 02/06/18 12:59 Neurontin - PO 300 mg TID CARTER Administration Hydrochlorothiazide 12.5 mg 02/06/18 10:00 02/06/18 11:16 Hctz - PO 12.5 mg DAILY CARTER Administration Ceftriaxone Sodium 2 gm/ 100 mls @ 200 mls/hr 02/06/18 22:00 Dextrose IVPB HS CARTER Protocol Vancomycin HCl 1,000 mg in 250 mls @ 166.667 mls/hr 02/06/18 20:00 Vancomycin (Pre-Docked) IVPB Q24H CARTER Protocol Lisinopril 10 mg 02/06/18 10:00 02/06/18 11:16 Prinivil PO 10 mg DAILY CARTER Administration Metoprolol Succinate 25 mg 02/06/18 10:00 02/06/18 11:16 Toprol Xl - PO 25 mg DAILY CARTER Administration Miscellaneous 1 each 02/06/18 06:22 Duragesic Patch Waste TD PRN PRN PAIN Oxycodone HCl 7.5 mg 02/06/18 06:02 02/06/18 11:28 Roxicodone - PO 7.5 mg Q4H PRN Administration PAIN LEVEL 7 - 10 Pantoprazole Sodium 20 mg 02/06/18 10:00 02/06/18 11:16 Protonix - PO 20 mg DAILY CARTER Administration Tramadol HCl 50 mg 02/06/18 05:53 Ultram - PO Q6H PRN PAIN LEVEL 4 - 6 ASSESSMENT/PLAN: 67yF with PMH of metastatic breast cancer with left femur, clavicle, spine, ribs; HTN; GERD; anxiety presented to the ED with fever and left leg pain. will check CT LS spine/pelvis/let femur Ortho cnsult-- Dr. Harman fentanyl/oxycodone duplex neg. fevr--left knee effusion cx pending ? tumor fever will follow
--- NOTE | 2018-02-06 18:03 | EKG ---
Test Reason : Blood Pressure : / mmHG Vent. Rate : 069 BPM Atrial Rate : 069 BPM P-R Int : 126 ms QRS Dur : 090 ms QT Int : 422 ms P-R-T Axes : 027 009 035 degrees QTc Int : 452 ms NORMAL SINUS RHYTHM NORMAL ECG WHEN COMPARED WITH ECG OF 04-JUL-2017 21:04, NO SIGNIFICANT CHANGE WAS FOUND Confirmed by KING BUTTERFIELD MD ([id number]) on 02/06/2018 6:02:50 PM Referred By: Confirmed By:KING BUTTERFIELD MD
[2018-02-06] MEDS ORDERED: VANCOMYCIN 1 GRAM (PRE-DOCKED) 1,000 MG/250 ML BAG IVPB SCH (20:00)
[2018-02-06] MEDS ORDERED: DEXTROSE 5%-WATER 100 ML IVPB ONE (20:11)
[2018-02-06] MEDS: CEFTRIAXONE 2 GM in DEXTROSE 5%-WATER 100 ML IVPB SCH (21:32)
[2018-02-07] MEDS: GABAPENTIN 300 MG CAPSULE (FP) PO SCH ×3 (06:28→21:15)
[2018-02-07] MEDS: oxyCODONE HCL 5 MG TABLET PO PRN ×2 (06:58→20:33)
[2018-02-07 07:57] LABS: BASO % 0.7 % (0-2.0); EOS % 2.4 % (0-4.5); HEMATOCRIT 30.9 % (32.4-45.2); HEMOGLOBIN 10.2 GM/dL (10.7-15.3); LYMPH % 20.1 % (8-40); MCH 27.1 pg (25.7-33.7); MCHC 32.9 g/dl (32.0-36.0); MEAN CELL VOLUME 82.4 fl (80-96); MONO % 12.6 % (3.8-10.2); NEUT % 64.2 % (42.8-82.8); PLATELET COUNT 206 K/MM3 (134-434); RBC 3.75 M/mm3 (3.60-5.2); RDW 14.8 % (11.6-15.6)
[2018-02-07 08:23] LABS: ALBUMIN 3.3 g/dl (3.4-5.0); ALK PHOS 69 U/L (45-117); ANION GAP 9 MMOL/L (8-16); BILIRUBIN,TOTAL 1.1 mg/dL (0.2-1); BLOOD UREA NITROGEN 11 mg/dL (7-18); CALCIUM 7.6 mg/dL (8.5-10.1); CHLORIDE 106 mmol/L (98-107); CO2 27 mmol/L (21-32); CREATININE 0.9 mg/dL (0.55-1.3); GLUCOSE,RANDOM 92 mg/dL (74-106); MAGNESIUM 2.1 mg/dL (1.8-2.4); PHOSPHOROUS 2.9 mg/dL (2.5-4.9); POTASSIUM 4.2 mmol/L (3.5-5.1); SGOT/AST 17 U/L (15-37); SGPT/ALT 26 U/L (13-61); SODIUM 142 mmol/L (136-145); TOT PROT 6.7 g/dl (6.4-8.2)
--- NOTE | 2018-02-07 08:45 | PN ---
Progress Note (short form) - Note Progress Note: continued left leg pain- mild knee and ankle pain persist, mild swelling unchanged no fevrs looks well Vital Signs Period Temp Pulse Resp BP Sys/Nuñez Pulse Ox Last 24 Hr 98.4 F-98.9 F 70-87 17-20 101-125/54-65 100-100 cor-rrr llungs clear abd soft,nt ext no erythema of the knee, mild swelling of the ankle fluid put in bactec bottle so no gram stain or crystals analysis cell count not c/w septic arthritis CBC, BMP 02/07/18 07:00 02/07/18 07:00 Microbiology 02/05/18 00:15 Urine - Urine Clean Catch Urine Culture - Preliminary Strep Agalactiae Group B 02/05/18 00:05 Blood - Peripheral Venous Blood Culture - Preliminary NO GROWTH OBTAINED AFTER 24 HOURS, INCUBATION TO CONTINUE FOR 4 DAYS. 02/05/18 00:05 Blood - Peripheral Venous Blood Culture - Preliminary NO GROWTH OBTAINED AFTER 24 HOURS, INCUBATION TO CONTINUE FOR 4 DAYS. 02/06/18 05:37 Synovial Fluid - Knee Body Fluid Culture - Preliminary a/p suspect tumor fever doubt septic arthritis continue ceftriaxone for now ortho evaluation Problem List - Problems (1) Fever Code(s): R50.9 - FEVER, UNSPECIFIED (2) Swelling of left knee joint Code(s): M25.462 - EFFUSION, LEFT KNEE (3) Metastatic breast cancer Code(s): C50.919 - MALIGNANT NEOPLASM OF UNSP SITE OF UNSPECIFIED FEMALE BREAST
[2018-02-07] MEDS: HYDROCHLOROTHIAZIDE 12.5 MG CAPSULE (FP) PO SCH (10:05)
[2018-02-07] MEDS: PANTOPRAZOLE 20 MG TABLET (FP) PO SCH (10:05)
[2018-02-07] MEDS: LISINOPRIL 10 MG TABLET (FP) PO SCH (10:05)
[2018-02-07] MEDS: metoPROLOL SUCCINATE 25 MG TAB.SR.24H (FP) PO SCH (10:05)
[2018-02-07] MEDS: ENOXAPARIN NA (PORCINE) 40 MG/0.4 ML DISP.SYRIN SQ SCH (10:05)
[2018-02-07] MEDS: ACETAMINOPHEN 325 MG TABLET (FP) PO PRN (11:54)
--- NOTE | 2018-02-07 14:39 | PN ---
Progress Note (short form) - Note Progress Note: Pt seen and examined with son. In summary she is a 67 year old female pt with known metastatic breast cancer who has had about 2 weeks of mild to moderate pain in the left distal femur area. Denies any history of recent trauma or accident of any kind. She can bear weight, but with mild to moderate pain. She states that her left knee was aspirated a few days ago, and since then she feels better. PE Is normal. LLE is NVI. No deformity. Left knee and distal femur area has no swelling today, no erythema, no signs of infection or trauma. Limited ROM at the left knee because of pain, but motion is possible. No instability. Good ROM of the left ankle, foot, toes. Xrays Show calcifications possibly consistent with blastic lesions, and small areas of lysis in the distal femur. No significant cortical erosions. No pending fractures. Imp Breast CA mets to the left distal femur. Stable. No pending fracture. Rec No prophylactic surgery at this time. Weight bear as tolerated. P.T if necessary. Knee immobilizer PRN Should repeat xrays of left distal femur in 1 month to see of there is change in appearance. Can be done as out patient.
[2018-02-07] MEDS ORDERED: MAG HYDROX/AL HYDROX/SIMETH 30 ML UNIT-DOSE CUP PO PRN (16:33)
--- NOTE | 2018-02-07 16:33 | PN ---
Physical Exam: SUBJECTIVE: Patient seen and examined at the bedside. OBJECTIVE: Vital Signs Period Temp Pulse Resp BP Sys/Nuñez Pulse Ox Last 24 Hr 98.4 F-99.3 F 78-85 18-20 109-132/60-68 100-100 GENERAL: The patient is awake, alert, and fully oriented, in no acute distress. HEAD: Normal with no signs of trauma. EYES: PERRL, extraocular movements intact, sclera anicteric, conjunctiva clear. No ptosis. ENT: Ears normal, nares patent, oropharynx clear without exudates, moist mucous membranes. NECK: Trachea midline, full range of motion, supple. LUNGS: Breath sounds equal, clear to auscultation bilaterally ABDOMEN: Soft, nontender, nondistended, normoactive bowel sounds, no guarding, no rebound, no hepatosplenomegaly, no masses. EXTREMITIES: left knee s/p drainage of fluid, bandaid, no redness +pain, pain of left foot, will xray, NEUROLOGICAL: Normal speech, gait not observed. PSYCH: Normal mood, normal affect. SKIN: Warm, dry, normal turgor, no rashes or lesions noted Laboratory Results - last 24 hr 02/06/18 02/07/18 02/07/18 05:37 07:00 07:00 WBC 6.0 RBC 3.75 Hgb 10.2 L Hct 30.9 L MCV 82.4 MCH 27.1 MCHC 32.9 RDW 14.8 Plt Count 206 MPV 8.0 Absolute Neuts (auto) 3.8 Neutrophils % 64.2 Lymphocytes % 20.1 D Monocytes % 12.6 H Eosinophils % 2.4 D Basophils % 0.7 Nucleated RBC % 0 Sodium 142 Potassium 4.2 Chloride 106 Carbon Dioxide 27 Anion Gap 9 BUN 11 Creatinine 0.9 Creat Clearance w eGFR > 60 Random Glucose 92 Calcium 7.6 L Phosphorus 2.9 Magnesium 2.1 Total Bilirubin 1.1 H AST 17 ALT 26 Alkaline Phosphatase 69 Total Protein 6.7 Albumin 3.3 L Synovial Crystals Negative Active Medications Generic Name Dose Route Start Last Admin Trade Name Freq PRN Reason Stop Dose Admin Acetaminophen 325 mg 02/06/18 06:03 02/07/18 11:54 Tylenol - PO 325 mg Q4H PRN Administration PAIN LEVEL 7 - 10 Enoxaparin Sodium 40 mg 02/06/18 10:00 02/07/18 10:05 Lovenox - SQ 40 mg DAILY CARTER Administration Fentanyl 1 patch 02/08/18 10:00 Duragesic 12mcg Patch - TD Q72H CARTER Gabapentin 300 mg 02/06/18 06:00 02/07/18 13:52 Neurontin - PO 300 mg TID CARTER Administration Hydrochlorothiazide 12.5 mg 02/06/18 10:00 02/07/18 10:05 Hctz - PO 12.5 mg DAILY CARTER Administration Ceftriaxone Sodium 2 gm/ 100 mls @ 200 mls/hr 02/06/18 22:00 02/06/18 21:32 Dextrose IVPB 200 mls/hr HS CARTER Administration Protocol Lisinopril 10 mg 02/06/18 10:00 02/07/18 10:05 Prinivil PO 10 mg DAILY CARTER Administration Metoprolol Succinate 25 mg 02/06/18 10:00 02/07/18 10:05 Toprol Xl - PO 25 mg DAILY CARTER Administration Miscellaneous 1 each 02/06/18 06:22 Duragesic Patch Waste TD PRN PRN PAIN Oxycodone HCl 7.5 mg 02/06/18 06:02 02/07/18 06:58 Roxicodone - PO 7.5 mg Q4H PRN Administration PAIN LEVEL 7 - 10 Pantoprazole Sodium 20 mg 02/06/18 10:00 02/07/18 10:05 Protonix - PO 20 mg DAILY CARTER Administration Tramadol HCl 50 mg 02/06/18 05:53 Ultram - PO Q6H PRN PAIN LEVEL 4 - 6 ASSESSMENT/PLAN: Patient is a 67 year old female with a significant past medical history of hypertension, breast cancer with mets to left femur, clavicle, spine, ribs. Patient presents to the Ed with difficulty ambulating for 3 days and with subjective fevers of 103F at home. Duplex of lower ext negative for DVT. She presented to the Ed with fever and left leg pain. On admission, her left knee was swollen and slightly hot on arrival. Left knee tapped in the ED and injected with Lidocaine. The wound aspiration was sent for culture. Pt also placed in a knee immobilizer. Ortho/ID: Rule out sepsis on immunocompmromised patient likely secondary to left knee joint infection/pain vs tumor fever. Reported to have fever of 103F at home. On Ceftriaxone. Culture of knee sent for culture. Blood cultures with ngtd. urine cultures show strep agalactiae group b. Ortho consulted. ID following pain managed with Fentanyl patch and Oxycodone Monitor labs, vitals Onc. Breast cancer with mets Oncology following fen tolerating PO monitor electrolytes low salt diet prophy Lovenox 40mg daily disposition full code Visit type - Emergency Visit Emergency Visit: Yes ED Registration Date: 02/06/18 Care time: The patient presented to the Emergency Department on the above date and was hospitalized for further evaluation of their emergent condition. - New Patient This patient is new to me today: No - Critical Care Critical Care patient: No - Discharge Referral Referred to [facility] Med P.C.: No
[2018-02-07] MEDS ORDERED: DEXTROSE 5%-WATER 100 ML IVPB ONE (20:29)
[2018-02-07] MEDS: CEFTRIAXONE 2 GM in DEXTROSE 5%-WATER 100 ML IVPB SCH (21:15)
[2018-02-07] MEDS ORDERED: ALPRAZolam 2 MG TABLET PO ONE (22:15)
[2018-02-08] MEDS: GABAPENTIN 300 MG CAPSULE (FP) PO SCH ×3 (06:21→22:40)
[2018-02-08 09:03] LABS: BASO % 0.8 % (0-2.0); EOS % 2.1 % (0-4.5); HEMATOCRIT 29.9 % (32.4-45.2); LYMPH % 14.8 % (8-40); MCH 27.5 pg (25.7-33.7); MCHC 33.5 g/dl (32.0-36.0); MEAN PLT VOLUME 7.8 fl (7.5-11.1); MONO % 10.8 % (3.8-10.2); NEUT % 71.5 % (42.8-82.8); PLATELET COUNT 211 K/MM3 (134-434); RBC 3.64 M/mm3 (3.60-5.2); RDW 14.2 % (11.6-15.6); WHITE BLOOD COUNT 5.5 K/mm3 (4.0-10.0)
--- NOTE | 2018-02-08 09:06 | PN ---
Progress Note (short form) - Note Progress Note: Ortho Pt seen and examined c/o pain in left knee and ankle. CT scan was performed last night- results pending Selected Entries 02/08/18 06:00 Temperature 99.4 F Pulse Rate 100 H Respiratory 18 Rate Blood Pressure 114/66 Laboratory Tests 02/07/18 07:00 WBC 6.0 Hgb 10.2 L Hct 30.9 L Plt Count 206 + swelling, + ttp, decr rom calf soft, nt, nvi a/p f/u CT results- possible mets knee immobilizer for comfort PT eval wbat dvt ppx pain control d/w Dr. Purdy
[2018-02-08 09:40] LABS: ALBUMIN 3.4 g/dl (3.4-5.0); ALK PHOS 92 U/L (45-117); ANION GAP 5 MMOL/L (8-16); BILIRUBIN,TOTAL 1.5 mg/dL (0.2-1); BLOOD UREA NITROGEN 11 mg/dL (7-18); CHLORIDE 105 mmol/L (98-107); CO2 28 mmol/L (21-32); CREATININE 0.9 mg/dL (0.55-1.3); GLUCOSE,RANDOM 105 mg/dL (74-106); POTASSIUM 4.5 mmol/L (3.5-5.1); SGOT/AST 44 U/L (15-37); SGPT/ALT 61 U/L (13-61); SODIUM 139 mmol/L (136-145); TOT PROT 6.8 g/dl (6.4-8.2)
[2018-02-08] MEDS: ENOXAPARIN NA (PORCINE) 40 MG/0.4 ML DISP.SYRIN SQ SCH (12:07)
[2018-02-08] MEDS: HYDROCHLOROTHIAZIDE 12.5 MG CAPSULE (FP) PO SCH (12:07)
[2018-02-08] MEDS: metoPROLOL SUCCINATE 25 MG TAB.SR.24H (FP) PO SCH (12:07)
[2018-02-08] MEDS: LISINOPRIL 10 MG TABLET (FP) PO SCH (12:07)
[2018-02-08] MEDS: PANTOPRAZOLE 20 MG TABLET (FP) PO SCH (12:07)
[2018-02-08] MEDS: fentaNYL 12mcg/hr PATCH.TD72 TD SCH (12:08)
[2018-02-08] MEDS: FENTANYL PATCH WASTE TD PRN (12:18)
[2018-02-08] MEDS: oxyCODONE HCL 5 MG TABLET PO PRN ×3 (12:23→22:37)
--- NOTE | 2018-02-08 14:53 | PN ---
Progress Note (short form) - Note Progress Note: Patient seen and examined at bedside left femur Xray shows blastic bone lesions-unchanged from prior CT scans pending Vital Signs Temperature 99.1 F 02/08/18 13:12 Pulse Rate 94 H 02/08/18 13:12 Respiratory Rate 20 02/08/18 13:12 Blood Pressure 134/71 02/08/18 13:12 O2 Sat by Pulse Oximetry (%) 96 02/08/18 09:00 PE: NAD Walking with and a walker from the stretcher to the bed RRR S1 S2 CTAB left knee edematous and hot left ankle also edematous and hot no erythema Laboratory Last Values WBC 5.5 K/mm3 (4.0-10.0) 02/08/18 08:30 RBC 3.64 M/mm3 (3.60-5.2) 02/08/18 08:30 Hgb 10.0 GM/dL (10.7-15.3) L 02/08/18 08:30 Hct 29.9 % (32.4-45.2) L 02/08/18 08:30 MCV 82.0 fl (80-96) 02/08/18 08:30 MCH 27.5 pg (25.7-33.7) 02/08/18 08:30 MCHC 33.5 g/dl (32.0-36.0) 02/08/18 08:30 RDW 14.2 % (11.6-15.6) 02/08/18 08:30 Plt Count 211 K/MM3 (134-434) 02/08/18 08:30 MPV 7.8 fl (7.5-11.1) 02/08/18 08:30 Absolute Neuts (auto) 3.9 K/mm3 (1.5-8.0) 02/08/18 08:30 Neutrophils % 71.5 % (42.8-82.8) 02/08/18 08:30 Lymphocytes % 14.8 % (8-40) D 02/08/18 08:30 Monocytes % 10.8 % (3.8-10.2) H 02/08/18 08:30 Eosinophils % 2.1 % (0-4.5) 02/08/18 08:30 Basophils % 0.8 % (0-2.0) 02/08/18 08:30 Nucleated RBC % 0 % (0-0) 02/08/18 08:30 PT with INR 11.90 SEC (9.7-13.0) 02/05/18 00:05 INR 1.01 (0.83-1.09) 02/05/18 00:05 PTT (Actin FS) 43.0 SECONDS (25.2-36.5) H 02/05/18 00:05 VBG pH 7.31 (7.32-7.42) L 02/05/18 00:05 POC VBG pCO2 44.5 mmHg (38-52) D 02/05/18 00:05 POC VBG pO2 32.1 mmHg (28-48) 02/05/18 00:05 Mixed VBG HCO3 21.6 meq/L (19-25) 02/05/18 00:05 Sodium 139 mmol/L (136-145) 02/08/18 08:30 Potassium 4.5 mmol/L (3.5-5.1) 02/08/18 08:30 Chloride 105 mmol/L (98-107) 02/08/18 08:30 Carbon Dioxide 28 mmol/L (21-32) 02/08/18 08:30 Anion Gap 5 MMOL/L (8-16) L 02/08/18 08:30 BUN 11 mg/dL (7-18) 02/08/18 08:30 Creatinine 0.9 mg/dL (0.55-1.3) 02/08/18 08:30 Creat Clearance w eGFR > 60 (>60) 02/08/18 08:30 Random Glucose 105 mg/dL (74-106) 02/08/18 08:30 Lactic Acid 0.8 mmol/L (0.4-2.0) 02/06/18 03:32 Calcium 8.0 mg/dL (8.5-10.1) L 02/08/18 08:30 Phosphorus 2.9 mg/dL (2.5-4.9) 02/07/18 07:00 Magnesium 2.1 mg/dL (1.8-2.4) 02/07/18 07:00 Total Bilirubin 1.5 mg/dL (0.2-1) H 02/08/18 08:30 AST 44 U/L (15-37) H 02/08/18 08:30 ALT 61 U/L (13-61) 02/08/18 08:30 Alkaline Phosphatase 92 U/L (45-117) 02/08/18 08:30 Creatine Kinase 131 IU/L (26-192) 02/05/18 00:05 CK-MB (CK-2) < 1.0 ng/mL (0.5-3.6) 02/05/18 00:05 Troponin I < 0.02 ng/ml (0.00-0.05) 02/05/18 00:05 Total Protein 6.8 g/dl (6.4-8.2) 02/08/18 08:30 Albumin 3.4 g/dl (3.4-5.0) 02/08/18 08:30 Urine Color Yellow 02/05/18 00:15 Urine Appearance Clear 02/05/18 00:15 Urine pH 5.0 (5.0-8.0) D 02/05/18 00:15 Ur Specific [place] 1.017 (1.010-1.035) 02/05/18 00:15 Urine Protein Negative (NEGATIVE) 02/05/18 00:15 Urine Glucose (UA) Negative (NEGATIVE) 02/05/18 00:15 Urine Ketones Negative (NEGATIVE) 02/05/18 00:15 Urine Blood Negative (NEGATIVE) 02/05/18 00:15 Urine Nitrite Negative (NEGATIVE) 02/05/18 00:15 Urine Bilirubin Negative (<2.0 mg/dL) 02/05/18 00:15 Urine Urobilinogen Negative mg/dL (0.2-1.0) 02/05/18 00:15 Ur Leukocyte Esterase Negative (NEGATIVE) 02/05/18 00:15 Fluid Source Synovial 02/06/18 05:37 Fluid WBC 48,374 /mm3 02/06/18 05:37 Fluid RBC 4,484 /mm3 02/06/18 05:37 Fluid Neutrophils 93 % 02/06/18 05:37 Pleural Monocytes 7 % 02/06/18 05:37 Synovial Crystals Negative 02/06/18 05:37 67F PMH of HTN, GERD, metastatic breast cancer with metastasis to left femur, clavicle, spine, ribs presented to the ED with left knee pain swelling and fever. Problem List: Metastatic breast Ca metastasis to left femur, clavicle, spine and ribs HTN GERD possible tumor fever-low suspicion for infection patient had arthocentesis done left knee effusion cultures pending CT scans shows osteoblastic lesions involving the pelvis and femora bilaterally. No fractures. no osteolytic lesions CT Lumbar spine shows-Unchanged contour, of height of vertebral bodies in comparison to the MRI of lumbosacral spine June 07, 2017. L1-L2. Loss of interval disc space height. Mild retrolisthesis of L1 on L2. Schmorl's node in the superior endplate of L2 vertebral body with sclerotic changes. Mild retrolisthesis of L2 on L3. Unchanged size of 2 sclerotic lesions in L3 vertebral body with intact cortex. Left femur Xray shows blastic bone lesions Getting a bone scan now continue pain control Knee immobilizer per ortho PT consult continue ceftriaxone per ID Will follow
--- NOTE | 2018-02-08 17:18 | PN ---
Progress Note (short form) - Note Progress Note: continued left leg pain- mild knee and ankle pain persist, mild swelling unchanged looks well Vital Signs Period Temp Pulse Resp BP Sys/Nuñez Pulse Ox Last 24 Hr 98 F-99.8 F 76-100 18-20 107-134/57-71 96-100 cor-rrr lungs clear abd soft,nt ext no erythema of the knee or ankle +small prepaatellar effusion, +ankle swelling bone scan pending ct scans no fractures CBC, BMP 02/08/18 08:30 02/08/18 08:30 Microbiology 02/05/18 00:15 Urine - Urine Clean Catch Urine Culture - Final Strep Agalactiae Group B 02/05/18 00:05 Blood - Peripheral Venous Blood Culture - Preliminary NO GROWTH OBTAINED AFTER 48 HOURS, INCUBATION TO CONTINUE FOR 3 DAYS. 02/05/18 00:05 Blood - Peripheral Venous Blood Culture - Preliminary NO GROWTH OBTAINED AFTER 48 HOURS, INCUBATION TO CONTINUE FOR 3 DAYS. 02/06/18 05:37 Synovial Fluid - Knee Body Fluid Culture - Preliminary a/p suspect tumor fever doubt septic arthritis crystals negative d/c rocephin observe off antibiotics ortho evaluation Problem List - Problems (1) Fever Code(s): R50.9 - FEVER, UNSPECIFIED (2) Swelling of left knee joint Code(s): M25.462 - EFFUSION, LEFT KNEE (3) Metastatic breast cancer Code(s): C50.919 - MALIGNANT NEOPLASM OF UNSP SITE OF UNSPECIFIED FEMALE BREAST
--- NOTE | 2018-02-08 20:09 | PN ---
Physical Exam: SUBJECTIVE: Patient seen and examined at the bedside. For bone scan today. OBJECTIVE: Vital Signs Period Temp Pulse Resp BP Sys/Nuñez Pulse Ox Last 24 Hr 99.1 F-99.8 F 81-100 18-20 107-134/57-71 96-100 GENERAL: The patient is awake, alert, and fully oriented, in no acute distress. HEAD: Normal with no signs of trauma. EYES: PERRL, extraocular movements intact, sclera anicteric, conjunctiva clear. No ptosis. ENT: Ears normal, nares patent, oropharynx clear without exudates, moist mucous membranes. NECK: Trachea midline, full range of motion, supple. LUNGS: Breath sounds equal, clear to auscultation bilaterally ABDOMEN: Soft, nontender, nondistended, normoactive bowel sounds, no guarding, no rebound, no hepatosplenomegaly, no masses. EXTREMITIES: left knee s/p drainage of fluid, bandaid, no redness +pain, pain of left foot, mild swelling of left foot. NEUROLOGICAL: Normal speech, gait not observed. PSYCH: Normal mood, normal affect. SKIN: Warm, dry, normal turgor, no rashes or lesions noted Laboratory Results - last 24 hr 02/08/18 02/08/18 08:30 08:30 WBC 5.5 RBC 3.64 Hgb 10.0 L Hct 29.9 L MCV 82.0 MCH 27.5 MCHC 33.5 RDW 14.2 Plt Count 211 MPV 7.8 Absolute Neuts (auto) 3.9 Neutrophils % 71.5 Lymphocytes % 14.8 D Monocytes % 10.8 H Eosinophils % 2.1 Basophils % 0.8 Nucleated RBC % 0 Sodium 139 Potassium 4.5 Chloride 105 Carbon Dioxide 28 Anion Gap 5 L BUN 11 Creatinine 0.9 Creat Clearance w eGFR > 60 Random Glucose 105 Calcium 8.0 L Total Bilirubin 1.5 H AST 44 H ALT 61 Alkaline Phosphatase 92 Total Protein 6.8 Albumin 3.4 Active Medications Generic Name Dose Route Start Last Admin Trade Name Freq PRN Reason Stop Dose Admin Acetaminophen 325 mg 02/06/18 06:03 02/07/18 11:54 Tylenol - PO 325 mg Q4H PRN Administration PAIN LEVEL 7 - 10 Al Hydroxide/Mg Hydroxide 30 ml 02/07/18 16:33 Mylanta Oral Suspension - PO Q6H PRN DYSPEPSIA Enoxaparin Sodium 40 mg 02/06/18 10:00 02/08/18 12:07 Lovenox - SQ 40 mg DAILY CARTER Administration Fentanyl 1 patch 02/08/18 10:00 02/08/18 12:08 Duragesic 12mcg Patch - TD 1 patch Q72H CARTER Administration Gabapentin 300 mg 02/06/18 06:00 02/08/18 15:06 Neurontin - PO 300 mg TID CARTER Administration Hydrochlorothiazide 12.5 mg 02/06/18 10:00 02/08/18 12:07 Hctz - PO 12.5 mg DAILY CARTER Administration Ceftriaxone Sodium 2 gm/ 100 mls @ 200 mls/hr 02/06/18 22:00 02/07/18 21:15 Dextrose IVPB 200 mls/hr HS CARTER Administration Protocol Lisinopril 10 mg 02/06/18 10:00 02/08/18 12:07 Prinivil PO 10 mg DAILY CARTER Administration Metoprolol Succinate 25 mg 02/06/18 10:00 02/08/18 12:07 Toprol Xl - PO 25 mg DAILY CARTER Administration Miscellaneous 1 each 02/06/18 06:22 02/08/18 12:18 Duragesic Patch Waste TD 1 each PRN PRN Administration PAIN Oxycodone HCl 7.5 mg 02/06/18 06:02 02/08/18 18:58 Roxicodone - PO 7.5 mg Q4H PRN Administration PAIN LEVEL 7 - 10 Pantoprazole Sodium 20 mg 02/06/18 10:00 02/08/18 12:07 Protonix - PO 20 mg DAILY CARTER Administration Tramadol HCl 50 mg 02/06/18 05:53 Ultram - PO Q6H PRN PAIN LEVEL 4 - 6 ASSESSMENT/PLAN: Patient is a 67 year old female with a significant past medical history of hypertension, breast cancer with mets to left femur, clavicle, spine, ribs. Patient presents to the Ed with difficulty ambulating for 3 days and with subjective fevers of 103F at home. Duplex of lower ext negative for DVT. On admission, her left knee was swollen and slightly hot on arrival. Left knee tapped in the ED and injected with Lidocaine. The wound aspiration was sent for culture. Pt also placed in a knee immobilizer. Ortho/ID: Rule out sepsis on immuno-compromised patient left knee joint infection vs tumor fever. Reported to have fever of 103F at home, no fevers here. Antibiotics discontinued per ID. Monitor off antibiotics. Aspiration of knee sent for culture, pending CT scans shows osteoblastic lesions involving the pelvis and femora bilaterally. No fractures seen. no osteolytic lesions Blood cultures with ngtd. urine cultures show strep agalactiae group b with low colony count. Ortho consulted and following, patient on knee immobilizer. pain managed with Fentanyl patch and Oxycodone Monitor labs, vitals Physical therapy with WBAT Onc. Breast cancer with mets Oncology following fen tolerating PO monitor electrolytes low salt diet prophy Lovenox 40mg daily disposition full code Visit type - Emergency Visit Emergency Visit: Yes ED Registration Date: 02/06/18 Care time: The patient presented to the Emergency Department on the above date and was hospitalized for further evaluation of their emergent condition. - New Patient This patient is new to me today: No - Critical Care Critical Care patient: No - Discharge Referral Referred to [facility] Med P.C.: No
--- NOTE | 2018-02-08 21:47 | PN ---
Progress Note (short form) - Note Progress Note: Patient seen and examined c/o left leg pain AFVSS Cor: RSR, No murmurs, No gallops Lungs: Clear to P&A Abd: Soft, Normal bowel sounds, No organomegaly Ext:No significant edema Skin: No rashes, Integument intact Labs/MEds reviewed A/P 67yF with PMH of metastatic breast cancer with left femur, clavicle, spine, ribs; HTN; GERD; anxiety presented to the ED with fever and left leg pain. CT LS spine/pelvis/let femur showed osteoblastic mets in femurs/pelvis, L3 fentanyl/oxycodone duplex neg. Ortho consult noted ? rad-onc consult Started faslodex this month suprapatellar effusion --no growth so fr urine cx--strep. on rocephin
[2018-02-08] MEDS ORDERED: DEXTROSE 5%-WATER 100 ML IVPB ONE (22:27)
[2018-02-08] MEDS: CEFTRIAXONE 2 GM in DEXTROSE 5%-WATER 100 ML IVPB SCH (22:37)
[2018-02-08] MEDS: ALPRAZolam 0.25 MG TABLET PO PRN (22:38)
[2018-02-09] MEDS: GABAPENTIN 300 MG CAPSULE (FP) PO SCH ×3 (05:37→21:45)
[2018-02-09] MEDS: oxyCODONE HCL 5 MG TABLET PO PRN ×3 (05:37→17:39)
[2018-02-09 06:06] LABS: BASO % 1.3 % (0-2.0); EOS % 4.2 % (0-4.5); HEMOGLOBIN 9.1 GM/dL (10.7-15.3); LYMPH % 26.2 % (8-40); MCH 26.7 pg (25.7-33.7); MCHC 32.6 g/dl (32.0-36.0); MEAN PLT VOLUME 7.8 fl (7.5-11.1); MONO % 13.1 % (3.8-10.2); NEUT % 55.2 % (42.8-82.8); PLATELET COUNT 217 K/MM3 (134-434); RBC 3.42 M/mm3 (3.60-5.2); RDW 14.1 % (11.6-15.6); WHITE BLOOD COUNT 4.2 K/mm3 (4.0-10.0)
[2018-02-09 06:48] LABS: ALK PHOS 92 U/L (45-117); ANION GAP 6 MMOL/L (8-16); BILIRUBIN,TOTAL 0.9 mg/dL (0.2-1); BLOOD UREA NITROGEN 12 mg/dL (7-18); CALCIUM 7.8 mg/dL (8.5-10.1); CHLORIDE 100 mmol/L (98-107); CO2 29 mmol/L (21-32); CREATININE 1.1 mg/dL (0.55-1.3); GLUCOSE,RANDOM 96 mg/dL (74-106); MAGNESIUM 2.5 mg/dL (1.8-2.4); POTASSIUM 3.9 mmol/L (3.5-5.1); SGOT/AST 62 U/L (15-37); SGPT/ALT 91 U/L (13-61); SODIUM 136 mmol/L (136-145); TOT PROT 6.4 g/dl (6.4-8.2)
--- NOTE | 2018-02-09 09:27 | PN ---
Physical Exam: SUBJECTIVE: Patient seen and examined. She complains of left knee and ankle pain. OBJECTIVE: Vital Signs Period Temp Pulse Resp BP Sys/Nuñez Pulse Ox Last 24 Hr 99.1 F-99.6 F 83-96 20-20 107-135/57-74 98 GENERAL: The patient is awake, alert, and fully oriented, in no acute distress. LUNGS: Breath sounds equal, clear to auscultation bilaterally, no wheezes, no crackles, no accessory muscle use. HEART: Regular rate and rhythm, S1, S2 without murmur, rub or gallop. ABDOMEN: Soft, nontender, nondistended, normoactive bowel sounds, no guarding, no rebound, no hepatosplenomegaly, no masses. EXTREMITIES: 2+ pulses, warm, well-perfused. Left knee swollen, tender, no erythema. Left foot swollen. Left ankle swollen and tender, no erythema. Laboratory Results - last 24 hr 02/08/18 02/09/18 02/09/18 08:30 05:30 05:30 WBC 4.2 RBC 3.42 L Hgb 9.1 L Hct 28.0 L MCV 82.0 MCH 26.7 MCHC 32.6 RDW 14.1 Plt Count 217 MPV 7.8 Absolute Neuts (auto) 2.3 Neutrophils % 55.2 D Lymphocytes % 26.2 D Monocytes % 13.1 H Eosinophils % 4.2 D Basophils % 1.3 Nucleated RBC % 0 Sodium 139 136 Potassium 4.5 3.9 Chloride 105 100 Carbon Dioxide 28 29 Anion Gap 5 L 6 L BUN 11 12 Creatinine 0.9 1.1 Creat Clearance w eGFR > 60 49.85 Random Glucose 105 96 Calcium 8.0 L 7.8 L Magnesium 2.5 H Total Bilirubin 1.5 H 0.9 AST 44 H 62 H ALT 61 91 H Alkaline Phosphatase 92 92 Total Protein 6.8 6.4 Albumin 3.4 3.0 L Active Medications Generic Name Dose Route Start Last Admin Trade Name Freq PRN Reason Stop Dose Admin Acetaminophen 325 mg 02/06/18 06:03 02/07/18 11:54 Tylenol - PO 325 mg Q4H PRN Administration PAIN LEVEL 7 - 10 Al Hydroxide/Mg Hydroxide 30 ml 02/07/18 16:33 Mylanta Oral Suspension - PO Q6H PRN DYSPEPSIA Alprazolam 0.5 mg 02/08/18 20:24 02/08/18 22:38 Xanax - PO 0.5 mg HS PRN Administration ANXIETY Enoxaparin Sodium 40 mg 02/06/18 10:00 02/08/18 12:07 Lovenox - SQ 40 mg DAILY CARTER Administration Fentanyl 1 patch 02/08/18 10:00 02/08/18 12:08 Duragesic 12mcg Patch - TD 1 patch Q72H CARTER Administration Gabapentin 300 mg 02/06/18 06:00 02/09/18 05:37 Neurontin - PO 300 mg TID CARTER Administration Hydrochlorothiazide 12.5 mg 02/06/18 10:00 02/08/18 12:07 Hctz - PO 12.5 mg DAILY CARTER Administration Ceftriaxone Sodium 2 gm/ 100 mls @ 200 mls/hr 02/06/18 22:00 02/08/18 22:37 Dextrose IVPB 200 mls/hr HS CARTER Administration Protocol Lisinopril 10 mg 02/06/18 10:00 02/08/18 12:07 Prinivil PO 10 mg DAILY CARTER Administration Metoprolol Succinate 25 mg 02/06/18 10:00 02/08/18 12:07 Toprol Xl - PO 25 mg DAILY CARTER Administration Miscellaneous 1 each 02/06/18 06:22 02/08/18 12:18 Duragesic Patch Waste TD 1 each PRN PRN Administration PAIN Oxycodone HCl 7.5 mg 02/06/18 06:02 02/09/18 05:37 Roxicodone - PO 7.5 mg Q4H PRN Administration PAIN LEVEL 7 - 10 Pantoprazole Sodium 20 mg 02/06/18 10:00 02/08/18 12:07 Protonix - PO 20 mg DAILY CARTER Administration Tramadol HCl 50 mg 02/06/18 05:53 Ultram - PO Q6H PRN PAIN LEVEL 4 - 6 ASSESSMENT/PLAN: This is a 67 year old woman with a history of HTN, metastatic breast cancer who presented to the ED with fever, left leg pain. 1. Suprapatellar effusion, left knee - Arthrocentesis done in ED - no crystals seen - Culture pending - Afebrile, normal WBC - Unlikely to be septic joint - will observe off antibiotics 2. Metastatic breast cancer - Bone scan shows osteoblastic lesions in T5, T9 vertebral bodies, posterior 9th rib, medial right clavicle, sternum, bilateral iliac bones, right sacral bone, right inferior pubic ramus, left femur intertrochanteric region, bilateral femoral shafts; non-specific moderate uptake in left ankle - Continue left knee immobilizer - Pain control with Duragesic, Neurontin, Ultram/oxycodone as needed - Ortho, oncology follow up 3. HTN - Continue Lisinopril, Toprol XL, HCTZ Visit type - Emergency Visit Emergency Visit: Yes ED Registration Date: 02/06/18 Care time: The patient presented to the Emergency Department on the above date and was hospitalized for further evaluation of their emergent condition. - New Patient This patient is new to me today: Yes Date on this admission: 02/09/18 - Critical Care Critical Care patient: No - Discharge Referral Referred to [facility] Med [facility] No
[2018-02-09 09:51] LABS: AMYLASE-BF 28; GLUCOSE,BODY FLUID < 2 mg/dl; TOTAL PROTEIN BODY FLUID 3.4 g/dl
[2018-02-09] MEDS: PANTOPRAZOLE 20 MG TABLET (FP) PO SCH (10:18)
[2018-02-09] MEDS: LISINOPRIL 10 MG TABLET (FP) PO SCH (10:18)
[2018-02-09] MEDS: ENOXAPARIN NA (PORCINE) 40 MG/0.4 ML DISP.SYRIN SQ SCH (10:18)
[2018-02-09] MEDS: metoPROLOL SUCCINATE 25 MG TAB.SR.24H (FP) PO SCH (10:18)
[2018-02-09] MEDS: HYDROCHLOROTHIAZIDE 12.5 MG CAPSULE (FP) PO SCH (10:18)
--- NOTE | 2018-02-09 14:44 | PN ---
Progress Note (short form) - Note Progress Note: Patient seen and examined at bedside with daughter present requesting to speak to Dr. Galvan Vital Signs Temperature 99 F 02/09/18 10:37 Pulse Rate 96 H 02/09/18 10:37 Respiratory Rate 18 02/09/18 10:37 Blood Pressure 122/68 02/09/18 10:37 O2 Sat by Pulse Oximetry (%) 95 02/09/18 09:00 PE: NAD lying in bed RRR S1 S2 CTAB left knee edematous and hot left ankle also edematous and hot no erythema 02/09/18 02/09/18 05:30 05:30 WBC 4.2 RBC 3.42 L Hgb 9.1 L Hct 28.0 L MCV 82.0 MCHC 32.6 RDW 14.1 Plt Count 217 Neutrophils % 55.2 D Lymphocytes % 26.2 D Monocytes % 13.1 H Eosinophils % 4.2 D Basophils % 1.3 Sodium 136 Potassium 3.9 Chloride 100 Carbon Dioxide 29 Anion Gap 6 L BUN 12 Creatinine 1.1 02/06/18 05:37 Gram Stain - Final Synovial Fluid - Knee Body Fluid Culture - Preliminary Anaerobic Culture - Pending 02/05/18 00:05 Blood Culture - Preliminary Blood - Peripheral Venous NO GROWTH OBTAINED AFTER 72 HOURS, INCUBATION TO CONTINUE FOR 2 DAYS. 02/05/18 00:05 Blood Culture - Preliminary Blood - Peripheral Venous NO GROWTH OBTAINED AFTER 72 HOURS, INCUBATION TO CONTINUE FOR 2 DAYS. 02/05/18 00:15 Urine Culture - Final Urine - Urine Clean Catch Strep Agalactiae Group B 67F PMH of HTN, GERD, metastatic breast cancer with metastasis to left femur, clavicle, spine, ribs presented to the ED with left knee pain swelling and fever. Problem List: Metastatic breast Ca metastasis to left femur, clavicle, spine and ribs HTN GERD possible tumor fever though unlikely in breast Ca-low suspicion for infection patient had arthocentesis done left knee effusion cultures pending CT scans shows osteoblastic lesions involving the pelvis and femora bilaterally. No fractures. no osteolytic lesions CT Lumbar spine shows-Unchanged contour, of height of vertebral bodies in comparison to the MRI of lumbosacral spine June 07, 2017. L1-L2. Loss of interval disc space height. Mild retrolisthesis of L1 on L2. Schmorl's node in the superior endplate of L2 vertebral body with sclerotic changes. Mild retrolisthesis of L2 on L3. Unchanged size of 2 sclerotic lesions in L3 vertebral body with intact cortex. Left femur Xray shows blastic bone lesions continue pain control Knee immobilizer per ortho PT consult watch off ABx per ID Bone scan pending Pending radiation oncology consult Dr. Harman to see patient Will order MRI T spine as PET showed new T4 lesion Will follow Dr. Galvan to see patient
--- NOTE | 2018-02-09 17:36 | PN ---
Teaching Attending Note Name of Resident: Mehrdad Jacob ATTENDING PHYSICIAN STATEMENT I saw and evaluated the patient. I reviewed the resident's note and discussed the case with the resident. I agree with the resident's findings and plan as documented. Patient seen and examined PET scan with uptake in T4 and left intertrochanteric area which was not present on prior PET Bone scan with uptake in T5,T9, pelvis, left and right femur and intense uptake left ankle . Still swollen and tender left ankle new area of tenderness medial right Will plan for ortho follow up, ID follow up and plan for Tspine MRI OBJECTIVE: ASSESSMENT AND PLAN:
--- NOTE | 2018-02-09 20:18 | PN ---
Progress Note (short form) - Note Progress Note: Radiation Oncology (full consult to follow) She is a 67 yo woman with hormone sensitive metastatic breast cancer known to me , s/p palliative RT to L2-L4 and distal half of left femur in 06/2017 with excellent pain relief at both sites. Since then has continued systemic tx and recently noted return of pain to left thigh and hip regions with ambulation. Outside PET-CT showed new lesions at T4 and Lt intertrochanteric femur. Started on Faslodex and Zometa and was scheduled to see me in office tomorrow. Now admitted for increasing LLE pain and fever. Radiologic studies reviewed- no fractures, but extensive osteoblastic or sclerotic mets at T5, T9, L3, pelvis, sacrum, rt clavicle, sternum, rt 9th rib, rt proximal femur, lt intertrochanteric mid and lower femur. Uptake in left ankle is without corresponding blastic or lytic lesions on xray. She now complains the pain in left foot is most severe, followed by a new lesion on the right plantar surface. Lt knee arthrocentesis cx NTD. Seen by orthosx and ID, on left knee brace and off abx. Exam notable for swelling, warmth, tenderness in left foot/ ankle, swollen tender left knee, a quarter size tender mass on the medial right plantar surface. Will need to r/o infectious as well as noninfectious/ inflammatory etiology of pain in feet and knee joints. ID follow up. Cont analgesics. Await MRI Tspine to r/o epidural disease. Will consider repeat RT to left femur when pain better controlled.
[2018-02-09] MEDS: ALPRAZolam 0.25 MG TABLET PO PRN (21:44)
[2018-02-10] MEDS: oxyCODONE HCL 5 MG TABLET PO PRN ×4 (04:31→17:13)
[2018-02-10] MEDS: GABAPENTIN 300 MG CAPSULE (FP) PO SCH ×3 (05:38→23:11)
[2018-02-10 06:28] LABS: BASO % 1.1 % (0-2.0); EOS % 3.8 % (0-4.5); HEMATOCRIT 28.1 % (32.4-45.2); HEMOGLOBIN 9.3 GM/dL (10.7-15.3); LYMPH % 20.1 % (8-40); MCH 27.1 pg (25.7-33.7); MCHC 33.2 g/dl (32.0-36.0); MEAN CELL VOLUME 81.6 fl (80-96); MEAN PLT VOLUME 7.9 fl (7.5-11.1); MONO % 11.1 % (3.8-10.2); NEUT % 63.9 % (42.8-82.8); PLATELET COUNT 236 K/MM3 (134-434); RBC 3.44 M/mm3 (3.60-5.2); RDW 14.2 % (11.6-15.6); WHITE BLOOD COUNT 4.4 K/mm3 (4.0-10.0)
[2018-02-10 07:16] LABS: ALBUMIN 3.1 g/dl (3.4-5.0); BILIRUBIN,DIRECT 0.3 mg/dL (0.0-0.2); BILIRUBIN,TOTAL 0.9 mg/dL (0.2-1); TOT PROT 6.6 g/dl (6.4-8.2)
[2018-02-10 07:17] LABS: ANION GAP 10 MMOL/L (8-16); BLOOD UREA NITROGEN 15 mg/dL (7-18); CALCIUM 8.3 mg/dL (8.5-10.1); CHLORIDE 100 mmol/L (98-107); CO2 28 mmol/L (21-32); GLUCOSE,RANDOM 120 mg/dL (74-106); SODIUM 137 mmol/L (136-145); URIC ACID 5.3 mg/dL (2.6-7.2)
[2018-02-10] MEDS: ACETAMINOPHEN 325 MG TABLET (FP) PO PRN ×3 (08:44→17:14)
[2018-02-10] MEDS: HYDROCHLOROTHIAZIDE 12.5 MG CAPSULE (FP) PO SCH (09:15)
[2018-02-10] MEDS: LISINOPRIL 10 MG TABLET (FP) PO SCH (09:16)
[2018-02-10] MEDS: metoPROLOL SUCCINATE 25 MG TAB.SR.24H (FP) PO SCH (09:16)
[2018-02-10] MEDS: ENOXAPARIN NA (PORCINE) 40 MG/0.4 ML DISP.SYRIN SQ SCH (09:16)
[2018-02-10] MEDS: PANTOPRAZOLE 20 MG TABLET (FP) PO SCH (09:16)
--- NOTE | 2018-02-10 09:34 | PN ---
Progress Note (short form) - Note Progress Note: right medial ankle pain and right inner knee pain today, unable to weight bear on the right left ankle remains swollen , left knee with small effusion had dental work while she was in [place]- returned 01/19 denies mosquito bites lives here in [place] with daughter, denies tick bites, they have a pet dog off antibiotics Vital Signs Period Temp Pulse Resp BP Sys/Nuñez Pulse Ox Last 24 Hr 98.0 F-99.7 F 79-100 18-20 90-146/50-79 95 no conjuntival hemorrhages cor-rrr lungs clear abd soft,nt ext no swelling of hands /elbows left knee with swelling, left ankle is swollen now pain right inner ankle and knee- no swelling no erythema CBC, BMP 02/10/18 05:30 02/10/18 05:[address] scans no fractures CBC, BMP 02/08/18 08:30 02/08/18 08:30 Microbiology 02/05/18 00:15 Urine - Urine Clean Catch Urine Culture - Final Strep Agalactiae Group B 02/05/18 00:05 Blood - Peripheral Venous Blood Culture - Preliminary NO GROWTH OBTAINED AFTER 48 HOURS, INCUBATION TO CONTINUE FOR 3 DAYS. 02/05/18 00:05 Blood - Peripheral Venous Blood Culture - Preliminary NO GROWTH OBTAINED AFTER 48 HOURS, INCUBATION TO CONTINUE FOR 3 DAYS. 02/06/18 05:37 Synovial Fluid - Knee Body Fluid Culture - Preliminary a/p ?systemic process with low grade temp and multiple joints left knee/ankle swelling now with right knee and ankle pain esr/crp rheumatology evaluation chikugungya serology Lyme serology echo ortho f/u reculture off antibiotics for fever consider MRI of the left ankle metastatic breast cancer Problem List - Problems (1) Fever Code(s): R50.9 - FEVER, UNSPECIFIED (2) Swelling of left knee joint Code(s): M25.462 - EFFUSION, LEFT KNEE (3) Metastatic breast cancer Code(s): C50.919 - MALIGNANT NEOPLASM OF UNSP SITE OF UNSPECIFIED FEMALE BREAST
[2018-02-10] MEDS: traMADol HCL 50 MG TABLET PO PRN (10:57)
--- NOTE | 2018-02-10 12:15 | PN ---
Progress Note (short form) - Note Progress Note: Patient seen and examined at bedside with daughter and sister present last night she started to develop a tender erythematous spot on the medial part of her foot below the medial malleolus She is also now having right knee pain now Vital Signs Temperature 99 F 02/10/18 10:05 Pulse Rate 86 02/10/18 10:05 Respiratory Rate 18 02/10/18 10:05 Blood Pressure 115/67 02/10/18 10:05 O2 Sat by Pulse Oximetry (%) 95 02/09/18 21:00 02/10/18 02/10/18 05:30 05:30 WBC 4.4 RBC 3.44 L Hgb 9.3 L Hct 28.1 L MCV 81.6 MCHC 33.2 RDW 14.2 Plt Count 236 Neutrophils % 63.9 Lymphocytes % 20.1 D Monocytes % 11.1 H Eosinophils % 3.8 Basophils % 1.1 Sodium 137 Potassium 4.0 Chloride 100 Carbon Dioxide 28 Anion Gap 10 BUN 15 Creatinine 1.0 02/05/18 00:05 Blood Culture - Preliminary Blood - Peripheral Venous NO GROWTH OBTAINED AFTER 96 HOURS, INCUBATION TO CONTINUE FOR 1 DAYS. 02/05/18 00:05 Blood Culture - Preliminary Blood - Peripheral Venous NO GROWTH OBTAINED AFTER 96 HOURS, INCUBATION TO CONTINUE FOR 1 DAYS. 02/06/18 05:37 Gram Stain - Final Synovial Fluid - Knee Body Fluid Culture - Preliminary Anaerobic Culture - Pending 02/05/18 00:15 Urine Culture - Final Urine - Urine Clean Catch Strep Agalactiae Group B PE: NAD sitting in the chair. Observed walking with a walker to the bathroom RRR S1 S2 CTAB left knee edematous and hot left ankle also edematous and hot no erythema. Right foot medially below the ankle with warm and erythematous nodule which is new since last night. it is tender. Mild right knee swelling with no erythema or tenderness 67F PMH of HTN, GERD, metastatic breast cancer with metastasis to left femur, clavicle, spine, ribs presented to the ED with left knee pain swelling and fever. 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 No fractures. no osteolytic lesions CT Lumbar spine shows-Unchanged contour, of height of vertebral bodies in comparison to the MRI of lumbosacral spine June 07, 2017. L1-L2. Loss of interval disc space height. Mild retrolisthesis of L1 on L2. Schmorl's node in the superior endplate of L2 vertebral body with sclerotic changes. Mild retrolisthesis of L2 on L3. Unchanged size of 2 sclerotic lesions in L3 vertebral body with intact cortex. Left femur Xray shows blastic bone lesions continue pain control Knee immobilizer per ortho patient requesting knee immobilizer for right knee PT consult watch off ABx per ID Bone scan results noted radiation oncology consult appreciated. Will do chemo/RT when pain better controlled Dr. Harman to see patient MRI T spine as PET showed new T4 lesion Will get rheumatology consult Dr Aquino. patient is having migratory polyarthitis. Will get ESR/CRP Echo Lyme ab [place]unya Ab Will follow
--- NOTE | 2018-02-10 15:39 | CONS ---
DATE OF CONSULTATION: 02/09/2018 REFERRING PHYSICIAN: Shay Galvan MD REASON FOR CONSULTATION: Metastatic breast cancer, left lower extremity pain and swelling. HISTORY OF PRESENT ILLNESS: Patient is a 67-year-old woman known to me with a history of hormone-sensitive metastatic breast cancer who had completed palliative radiation therapy (30 Gy) to the L2-L4 spine and distal left femur in June 2017. She experienced excellent pain relief at both sites. She has continued systemic therapy since that time and recently was on hormonal agents. Of note, she recently noted return of pain in the left thigh and hip regions which affected her ambulation. An outside PET CT showed new lesions at T4 and the left intertrochanteric femur. Her systemic management was switched to Faslodex and Zometa, and she was scheduled to see me in the office tomorrow for radiotherapy evaluation. She was admitted to [facility] for increasing pain in the left leg and fever. She has also had swelling of the left foot. Radiologic studies including x-rays of the foot, ankle, knee, femur; CT scans of the pelvis, lower extremity, and lumbar spine; and a bone scan showed no gross fractures but presence of extensive osteoblastic and/or sclerotic metastases at T5, T9, L3, pelvic bones, sacrum, right clavicle, sternum, right ninth rib, right proximal femur, left intertrochanteric mid and lower femur. There is uptake in the left ankle without corresponding blastic or lytic lesions on the plain film. She presently complains of pain mostly in the left foot as well as a new painful mass on the right plantar surface of the foot. On this admission, she underwent left knee arthrocentesis, cultures negative to date. She was seen by the Orthopedic and Infectious Disease service. She has been placed on a left knee brace and is currently off antibiotics. She denies weight loss, change in appetite, change in bowel or bladder habits, incontinence, headache, dizziness, chest pain. She has difficulty ambulating, as mentioned, due to the pain primarily in the left foot but previously in the left thigh. PAST MEDICAL HISTORY: Hypertension, GERD, anxiety, tubal ligation. ALLERGIES: No known drug allergies. CURRENT MEDICATIONS: Duragesic patch, lisinopril, Lovenox daily, Neurontin, Toprol XL, Protonix, Ultram p.r.n., oxycodone p.r.n., Mylanta p.rCarlosn. FAMILY HISTORY: Denies. SOCIAL HISTORY: She lives with her family. Does not smoke or use alcohol. She recently returned from [place]. REVIEW OF SYSTEMS: In addition to that noted previously, the remainder is negative. PHYSICAL EXAMINATION: General: Well-appearing, well-developed, female, appearing her chronological age, in no acute distress. Her family is at the bedside. Vital Signs: Temperature 99.4, blood pressure 128/67, pulse 97, respiratory rate 20, SAO2 95% on room air. HEENT: Moist mucous membranes. Anicteric sclerae. Clear oral cavity. Neck: No cervical or supraclavicular adenopathy. Chest: Clear bilaterally without wheezes, rales, or rhonchi. No axillary adenopathy. Abdomen: Soft, nontender, nondistended with active bowel sounds. Extremities: Swollen left knee. Swollen left ankle and foot with tenderness and warmth but no obvious erythema, skin changes, or trauma. The left knee is mildly tender. On the medial plantar surface of the right foot, there is a quarter- size nodule that is tender. No satellite lesions. No tenderness in the hips. RADIOLOGIC DATA: As noted. LABORATORY DATA: 1. Urine culture: Streptococcus agalactiae, group B. 2. Synovial fluid: Gram stain negative. Culture no growth to date. 3. Blood cultures x2: No growth to date. 4. CBC: WBC 4.2, hemoglobin 9.1, platelet 217,000. Electrolytes within normal limits. BUN 12, creatinine 1.1. Calcium 7.8. Magnesium 2.5. AST 62, ALT 91, alkaline phosphatase 92. Albumin 3.0. IMPRESSION: A 67-year-old woman with hormone-sensitive metastatic breast cancer status post palliative radiotherapy, systemic/hormonal therapy with likely progression of osseous metastasis in the left femur associated with pain. We will consider repeat palliative radiotherapy to the left femur when her pains are better controlled. Of priority is further workup to rule out infectious as well as noninfectious/inflammatory etiology of the painful swelling in the joints (feet and knee). Need followup by the infectious disease service and continue pain management. We will await the MRI of the thoracic spine to rule out epidural disease. Thank you for asking me to see this patient, and I will continue to follow her with you. Tez [id number] MTDD
--- NOTE | 2018-02-10 16:21 | PN ---
Progress Note (short form) - Note Progress Note: Pt seen and examined. She denies recent trauma. She states that overnight she developed moderate, and intermittently severe pain in the left ankle, and moderate pain in the right ankle and the medial aspect of the right knee. She reiterates that she has no pain at all in the left hip, groin, thigh, or the length of the femur when she is immobile. When she walks, full weight bearing, she states she has "a little" pain in the left lateral thigh area. Right knee Very mild swelling medial aspect, + tender at 6/10, + warm, no erythema, good ROM, no instability. Right ankle Mild swelling medial aspect ankle joint/ligamentous complex, + tender at 7/10, mild erythema, +hot Left hip Good ROM with little pain, + mild pain in the hip with log rolling, able to do a straight leg rise with little to no pain. LLE grossly NVI Left ankle +moderate swelling, +there is mild fluid fluctuance, +mild-to- moderate erythema, very tender at 9/10 over the lateral ligaments, no echymosis Intact but limited ROM bc of pain in the ankle. Xrays L ankle negative for any obvious fractures or metastatic lesions Ct scan Pelvis shows diffuse metastatic lesions. Ct scan Left leg shows metastatic lesions in the left distal femur and intertrochanteric area. No fractures. No pending fractures or significant cortical erosions. Bone scan shows increased uptake in the left ankle, and left femur IT area, and distal femur. Impression New swelling, mild erythema over a warm/hot left ankle, Lateral> medial, with a bone scan showing increased uptake in that area, consistent with a metastatic lesion. Neither the ankle lesion(s) nor the femoral lesions require surgery or prophylactic surgery at this time. Rec Continued observation. Will monitor for possible development of infection , impending fractures. Better elevation both ankles. WBAT
--- NOTE | 2018-02-10 16:22 | ECHO ---
Name: REBECCA GARDUNOUEROAROSALIO Exam:Adult Echocardiogram Study Date: 02/10/2018 01:33 PM Age: 67 yrs Reason For Study: R/O Endocarditis Height: 64 in Weight: 151 lb BSA: 1.7 m2 MMode/2D Measurements & Calculations IVSd: 1.1 cm Ao root diam: 3.0 cm LVIDd: 5.2 cm LA dimension: 3.8 cm LVIDs: 3.3 cm ACS: 1.6 cm LVPWd: 1.1 cm IVSs: 1.3 cm LVPWs: 1.2 cm EDV(Teich): 132.3 ml ESV(Teich): 44.3 ml Doppler Measurements & Calculations MV E max arturo: 104.6 cm/sec Ao V2 max: 176.3 cm/sec MV A max arturo: 82.7 cm/sec Ao max P.4 mmHg MV E/A: 1.3 Ao V2 mean: 124.2 cm/sec Ao mean P.8 mmHg Ao V2 VTI: 31.9 cm AI P1/2t: 420.5 msec AI max arturo: 402.8 cm/sec MR max arturo: 434.9 cm/sec AI max P.9 mmHg MR max P.7 mmHg AI dec slope: 280.6 cm/sec2 TR max arturo: 261.4 cm/sec Med Peak E' Arturo: 7.8 cm/sec TR max P.4 mmHg Med E/e': 13.4 Lat Peak E' Arturo: 10.5 cm/sec Lat E/e': 9.9 Procedure A two-dimensional transthoracic echocardiogram with color flow and Doppler was performed. Left Ventricle The left ventricular size, thickness and function are normal. The left ventricular ejection fraction is normal. Left Ventricular Filling pattern is normal for age. The left ventricular wall motion is js l. Right Ventricle The right ventricle is normal in size and function. Atria Normal left and right atrial size and function. Mitral Valve There is mild mitral valve thickening. There is no mitral valve stenosis. There is mild to moderate m itral regurgitation. Tricuspid Valve The tricuspid valve is not well visualized. There is mild tricuspid valve thickening. There is no tri cuspid stenosis. There is mild to moderate tricuspid regurgitation. Right ventricular systolic pressure is n ormal. Aortic Valve The aortic valve is trileaflet. There is mild to moderate aortic valve thickening. No hemodynamically significant valvular aortic stenosis. Mild aortic regurgitation. Pulmonic Valve The pulmonic valve is not well visualized. Great Vessels The aortic root is normal size. Pericardium/Pleura There is no pericardial effusion. Interpretation Summary The left ventricular size, thickness and function are normal The left ventricular ejection fraction is normal. There is mild to moderate mitral regurgitation. There is mild to moderate aortic valve thickening. The aortic valve is trileaflet. Left Ventricular Filling pattern is normal for age. Mild aortic regurgitation. There is mild to moderate tricuspid regurgitation. Right ventricular systolic pressure is normal. MD Benedict Grant 02/10/2018 04:22 PM
--- NOTE | 2018-02-10 17:09 | PN ---
Teaching Attending Note Name of Resident: Mehrdad Jacob ATTENDING PHYSICIAN STATEMENT I saw and evaluated the patient. I reviewed the resident's note and discussed the case with the resident. I agree with the resident's findings and plan as documented. SUBJECTIVE: Patient seen and examined Migratory rheumatologic symptoms in setting of metastatic breast ca with bone mets. ID consult appreciated . To be seen by rheumatlogy. Had some leakage of stool -- no fecal impaction on exam good "anal wink." For continued work up. OBJECTIVE: ASSESSMENT AND PLAN:
--- NOTE | 2018-02-10 21:09 | PN ---
Physical Exam: SUBJECTIVE: Patient seen and examined. OBJECTIVE: Vital Signs Period Temp Pulse Resp BP Sys/Nuñez Pulse Ox Last 24 Hr 98.2 F-99.5 F 79-86 18-18 90-117/50-67 GENERAL: The patient is awake, alert, and fully oriented, in no acute distress. LUNGS: Breath sounds equal, clear to auscultation HEART: Regular rate and rhythm, S1, S2 ABDOMEN: Soft, nontender, nondistended EXTREMITIES: Left leg in immobilizer; right leg visualized; right knee warm to touch, no erythema, no swelling; right ankle exquistely tender, no erythema, no swelling NEUROLOGICAL: Cranial nerves II through XII grossly intact. Normal speech, gait not observed. Laboratory Results - last 24 hr 02/10/18 02/10/18 02/10/18 05:30 05:30 05:30 WBC 4.4 RBC 3.44 L Hgb 9.3 L Hct 28.1 L MCV 81.6 MCH 27.1 MCHC 33.2 RDW 14.2 Plt Count 236 MPV 7.9 Absolute Neuts (auto) 2.8 Neutrophils % 63.9 Lymphocytes % 20.1 D Monocytes % 11.1 H Eosinophils % 3.8 Basophils % 1.1 Nucleated RBC % 0 Sodium 137 Potassium 4.0 Chloride 100 Carbon Dioxide 28 Anion Gap 10 BUN 15 Creatinine 1.0 Creat Clearance w eGFR 55.64 Random Glucose 120 H Uric Acid 5.3 Calcium 8.3 L Total Bilirubin 0.9 Direct Bilirubin 0.3 H AST 69 H ALT 115 H Alkaline Phosphatase 117 Total Protein 6.6 Albumin 3.1 L Active Medications Generic Name Dose Route Start Last Admin Trade Name Amor PRN Reason Stop Dose Admin Acetaminophen 325 mg 02/06/18 06:03 02/10/18 17:14 Tylenol - PO 325 mg Q4H PRN Administration PAIN LEVEL 7 - 10 Al Hydroxide/Mg Hydroxide 30 ml 02/07/18 16:33 02/09/18 20:53 Mylanta Oral Suspension - PO 30 ml Q6H PRN Administration DYSPEPSIA Alprazolam 0.5 mg 02/08/18 20:24 02/09/18 21:44 Xanax - PO 0.5 mg HS PRN Administration ANXIETY Enoxaparin Sodium 40 mg 02/06/18 10:00 02/10/18 09:16 Lovenox - SQ 40 mg DAILY CARTER Administration Fentanyl 1 patch 02/08/18 10:00 02/08/18 12:08 Duragesic 12mcg Patch - TD 1 patch Q72H CARTER Administration Gabapentin 300 mg 02/06/18 06:00 02/10/18 14:15 Neurontin - PO 300 mg TID CARTER Administration Hydrochlorothiazide 12.5 mg 02/06/18 10:00 02/10/18 09:15 Hctz - PO 12.5 mg DAILY CARTER Administration Lisinopril 10 mg 02/06/18 10:00 02/10/18 09:16 Prinivil PO 10 mg DAILY CARTER Administration Metoprolol Succinate 25 mg 02/06/18 10:00 02/10/18 09:16 Toprol Xl - PO 25 mg DAILY CARTER Administration Miscellaneous 1 each 02/06/18 06:22 02/08/18 12:18 Duragesic Patch Waste TD 1 each PRN PRN Administration PAIN Oxycodone HCl 10 mg 02/10/18 12:04 02/10/18 17:13 Roxicodone - PO 10 mg Q4H PRN Administration PAIN LEVEL 7 - 10 Pantoprazole Sodium 20 mg 02/06/18 10:00 02/10/18 09:16 Protonix - PO 20 mg DAILY CARTER Administration Tramadol HCl 50 mg 02/06/18 05:53 02/10/18 10:57 Ultram - PO 50 mg Q6H PRN Administration PAIN LEVEL 4 - 6 ASSESSMENT/PLAN 68 year-old female with a PMH significant for HTN, and metastatic breast cancer s/p palliative RT to L2-L4 and distal half of left femur. Admitted for left knee and leg pain. Metastatic breast cancer --outside PET-CT showed new lesions at T4 and left intertrochanteric femur, started on Faslodex and Zometa --imaging here shows no fractures, but extensive osteoblastic or sclerotic mets at T5, T9, L3, pelvis, sacrum, rt clavicle, sternum, rt 9th rib, rt proximal femur, lt intertrochanteric mid and lower femur; uptake in left ankle is without corresponding blastic or lytic lesions on xray --now has pain in bilateral knees and ankles --concern for systemic process with polyarticular symptoms; arthrocenteis of left knee done in ED showed no crystals and uric acid wnl --rheum consult requested --ID workup in progress incluidng Lyme, [place]; echo negative for vegetation; observe off antibiotics --pain presently well-managed, continue fentany patch, gabapentin, Ultram/ oxycodone as needed Hypertension --continue lisinopril, Toprol XL, HCTZ FEN Fluids: PO intake adequate Electrolytes: replete as indicated Nutrition: low sodium with Ensure Enlive BID DVT prophylaxis: lovenox Dispo: continues to require inpatient care. Full code. Visit type - Emergency Visit Emergency Visit: Yes ED Registration Date: 02/06/18 Care time: The patient presented to the Emergency Department on the above date and was hospitalized for further evaluation of their emergent condition. - New Patient This patient is new to me today: Yes Date on this admission: 02/11/18 - Critical Care Critical Care patient: No
[2018-02-10] MEDS: ALPRAZolam 0.25 MG TABLET PO PRN (23:10)
[2018-02-11] MEDS: traMADol HCL 50 MG TABLET PO PRN (04:14)
[2018-02-11] MEDS: GABAPENTIN 300 MG CAPSULE (FP) PO SCH ×3 (07:17→21:26)
--- NOTE | 2018-02-11 09:37 | PN ---
Progress Note (short form) - Note Progress Note: Pt seen and examined. She has been elevating her feet over night. She states they feel better, less painful, less swollen. PE Both ankles are much less swollen from over night elevation. Now can appreciate skin wrinkles (+wrinkle test) Better ROM. plug overwrap machine tender but less so. Less erythema Imp Overall definite improvement compared to last evening. Rec Continued elevation WBAT No orthopedic surgery planned at this time
[2018-02-11] MEDS: fentaNYL 12mcg/hr PATCH.TD72 TD SCH (10:16)
[2018-02-11] MEDS: metoPROLOL SUCCINATE 25 MG TAB.SR.24H (FP) PO SCH (10:17)
[2018-02-11] MEDS: ENOXAPARIN NA (PORCINE) 40 MG/0.4 ML DISP.SYRIN SQ SCH (10:17)
[2018-02-11] MEDS: LISINOPRIL 10 MG TABLET (FP) PO SCH (10:17)
[2018-02-11] MEDS: HYDROCHLOROTHIAZIDE 12.5 MG CAPSULE (FP) PO SCH (10:17)
[2018-02-11] MEDS: PANTOPRAZOLE 20 MG TABLET (FP) PO SCH (10:17)
[2018-02-11] MEDS: FENTANYL PATCH WASTE TD PRN (10:23)
--- NOTE | 2018-02-11 11:07 | PN ---
Physical Exam: SUBJECTIVE: Patient seen and examined oob to chair. Left leg in immobilizer for pain relief. Has pain in both ankles, both knees. OBJECTIVE: Vital Signs Period Temp Pulse Resp BP Sys/Nuñez Pulse Ox Last 24 Hr 98.1 F-98.6 F 79-106 18-18 113-129/58-67 95 GENERAL: The patient is awake, alert, and fully oriented, in no acute distress. LUNGS: Breath sounds equal, clear to auscultation HEART: Regular rate and rhythm, S1, S2 ABDOMEN: Soft, nontender, nondistended EXTREMITIES: Left leg in immobilizer; right leg visualized; right knee warm to touch, no erythema, no swelling; right ankle exquistely tender, no erythema, no swelling NEUROLOGICAL: Cranial nerves II through XII grossly intact. Normal speech, gait not observed. CBCD WBC 4.4 K/mm3 (4.0-10.0) 02/10/18 05:30 RBC 3.44 M/mm3 (3.60-5.2) L 02/10/18 05:30 Hgb 9.3 GM/dL (10.7-15.3) L 02/10/18 05:30 Hct 28.1 % (32.4-45.2) L 02/10/18 05:30 MCV 81.6 fl (80-96) 02/10/18 05:30 MCHC 33.2 g/dl (32.0-36.0) 02/10/18 05:30 RDW 14.2 % (11.6-15.6) 02/10/18 05:30 Plt Count 236 K/MM3 (134-434) 02/10/18 05:30 MPV 7.9 fl (7.5-11.1) 02/10/18 05:30 CMP Sodium 137 mmol/L (136-145) 02/10/18 05:30 Potassium 4.0 mmol/L (3.5-5.1) 02/10/18 05:30 Chloride 100 mmol/L (98-107) 02/10/18 05:30 Carbon Dioxide 28 mmol/L (21-32) 02/10/18 05:30 Anion Gap 10 MMOL/L (8-16) 02/10/18 05:30 BUN 15 mg/dL (7-18) 02/10/18 05:30 Creatinine 1.0 mg/dL (0.55-1.3) 02/10/18 05:30 Creat Clearance w eGFR 55.64 (>60) 02/10/18 05:30 Calcium 8.3 mg/dL (8.5-10.1) L 02/10/18 05:30 Total Bilirubin 0.9 mg/dL (0.2-1) 02/10/18 05:30 AST 69 U/L (15-37) H 02/10/18 05:30 ALT 115 U/L (13-61) H 02/10/18 05:30 Alkaline Phosphatase 117 U/L (45-117) 02/10/18 05:30 Total Protein 6.6 g/dl (6.4-8.2) 02/10/18 05:30 Albumin 3.1 g/dl (3.4-5.0) L 02/10/18 05:30 Laboratory Results - last 24 hr 02/11/18 02/11/18 06:00 06:00 ESR 109 H C-Reactive Protein 10.8 H Active Medications Generic Name Dose Route Start Last Admin Trade Name Freq PRN Reason Stop Dose Admin Acetaminophen 325 mg 02/06/18 06:03 02/10/18 17:14 Tylenol - PO 325 mg Q4H PRN Administration PAIN LEVEL 7 - 10 Al Hydroxide/Mg Hydroxide 30 ml 02/07/18 16:33 02/09/18 20:53 Mylanta Oral Suspension - PO 30 ml Q6H PRN Administration DYSPEPSIA Alprazolam 0.5 mg 02/08/18 20:24 02/10/18 23:10 Xanax - PO 0.5 mg HS PRN Administration ANXIETY Enoxaparin Sodium 40 mg 02/06/18 10:00 02/11/18 10:17 Lovenox - SQ 40 mg DAILY CARTER Administration Fentanyl 1 patch 02/08/18 10:00 02/11/18 10:16 Duragesic 12mcg Patch - TD 1 patch Q72H CARTER Administration Gabapentin 300 mg 02/06/18 06:00 02/11/18 07:17 Neurontin - PO 300 mg TID CARTER Administration Hydrochlorothiazide 12.5 mg 02/06/18 10:00 02/11/18 10:17 Hctz - PO 12.5 mg DAILY CARTER Administration Lisinopril 10 mg 02/06/18 10:00 02/11/18 10:17 Prinivil PO 10 mg DAILY CARTER Administration Metoprolol Succinate 25 mg 02/06/18 10:00 02/11/18 10:17 Toprol Xl - PO 25 mg DAILY CARTER Administration Miscellaneous 1 each 02/06/18 06:22 02/11/18 10:23 Duragesic Patch Waste TD 1 each PRN PRN Administration PAIN Oxycodone HCl 10 mg 02/10/18 12:04 02/10/18 17:13 Roxicodone - PO 10 mg Q4H PRN Administration PAIN LEVEL 7 - 10 Pantoprazole Sodium 20 mg 02/06/18 10:00 02/11/18 10:17 Protonix - PO 20 mg DAILY CARTER Administration Tramadol HCl 50 mg 02/06/18 05:53 02/11/18 04:14 Ultram - PO 50 mg Q6H PRN Administration PAIN LEVEL 4 - 6 ASSESSMENT/PLAN 68 year-old female with a PMH significant for HTN, and metastatic breast cancer s/p palliative RT to L2-L4 and distal half of left femur. Admitted for left knee and leg pain. Metastatic breast cancer --outside PET-CT showed new lesions at T4 and left intertrochanteric femur, started on Faslodex and Zometa --imaging here shows no fractures, but extensive osteoblastic or sclerotic mets at T5, T9, L3, pelvis, sacrum, rt clavicle, sternum, rt 9th rib, rt proximal femur, lt intertrochanteric mid and lower femur; uptake in left ankle is without corresponding blastic or lytic lesions on xray --now has pain in bilateral knees and ankles --concern for systemic process with polyarticular symptoms; arthrocenteis of left knee done in ED showed no crystals and uric acid wnl --rheum consult requested --ID workup in progress incluidng Lyme, [place]; echo negative for vegetation; observe off antibiotics --pain presently well-managed, continue fentany patch, gabapentin, Ultram/ oxycodone as needed Hypertension --continue lisinopril, Toprol XL, HCTZ FEN Fluids: PO intake adequate Electrolytes: replete as indicated Nutrition: low sodium with Ensure Enlive BID DVT prophylaxis: lovenox Dispo: continues to require inpatient care. Full code. Visit type - Emergency Visit Emergency Visit: Yes ED Registration Date: 02/06/18 Care time: The patient presented to the Emergency Department on the above date and was hospitalized for further evaluation of their emergent condition. - New Patient This patient is new to me today: No - Critical Care Critical Care patient: No
--- NOTE | 2018-02-11 11:17 | PN ---
Progress Note (short form) - Note Progress Note: Patient seen and examined at bedside. Legs elevated overnight and improved swelling per patient "I feel ok" Vital Signs Temperature 98.1 F 02/11/18 06:00 Pulse Rate 106 H 02/11/18 06:00 Respiratory Rate 18 02/11/18 06:00 Blood Pressure 129/67 02/11/18 06:00 O2 Sat by Pulse Oximetry (%) 95 02/10/18 21:00 PE: NAD lying in bed with legs elevated. RRR S1 S2 CTAB left knee is much less edematous but still warm. Left knee is tender to palpation but less so. Left ankle is press tender long goods but less tender and still swollen but much less as well. Right foot medially below the ankle with warm and erythematous nodule and tender. Mild right knee swelling with no erythema or tenderness 02/05/18 00:05 Blood Culture - Final Blood - Peripheral Venous NO GROWTH AFTER 5 DAYS INCUBATION 02/05/18 00:05 Blood Culture - Final Blood - Peripheral Venous NO GROWTH AFTER 5 DAYS INCUBATION 02/06/18 05:37 Gram Stain - Final Synovial Fluid - Knee Body Fluid Culture - Preliminary Anaerobic Culture - Final 02/05/18 00:15 Urine Culture - Final Urine - Urine Clean Catch Strep Agalactiae Group B Abnormal Lab Results 02/11/18 02/11/18 06:00 06:00 ESR 109 H C-Reactive Protein 10.8 H 67F PMH of HTN, GERD, metastatic breast cancer with metastasis to left femur, clavicle, spine, ribs presented to the ED with left knee pain swelling and fever. 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 No fractures. no osteolytic lesions CT Lumbar spine shows-Unchanged contour, of height of vertebral bodies in comparison to the MRI of lumbosacral spine June 07, 2017. L1-L2. Loss of interval disc space height. Mild retrolisthesis of L1 on L2. Schmorl's node in the superior endplate of L2 vertebral body with sclerotic changes. Mild retrolisthesis of L2 on L3. Unchanged size of 2 sclerotic lesions in L3 vertebral body with intact cortex. Left femur Xray shows blastic bone lesions continue pain control Knee immobilizer per ortho patient requesting knee immobilizer for right knee-ordered continue physical therapy-at bedside - appreciated watch off ABx per ID Bone scan results noted radiation oncology consult appreciated. Will do chemo/RT when pain better controlled ortho follow up appreciated MRI T spine as PET showed new T4 lesion-MRI T spine done but read is pending Will get rheumatology consult Dr Aquino. patient is having migratory polyarthitis. Lyme ab Chikungunya Ab-pending Echo noted- no evidence of endocardititis (TTE) ESR/CRP elevated 109/10.8 respectively Pain better controlled with increased dose of oxycodone Will follow
--- NOTE | 2018-02-11 14:47 | PN ---
Progress Note (short form) - Note Progress Note: family at bedside still with right ankle and knee pain left leg unchanged now with multiple loose stools since yesterday had dental work while she was in [place]- returned 01/19 denies mosquito bites lives here in [place] with daughter, denies tick bites, they have a pet dog off antibiotics Vital Signs Period Temp Pulse Resp BP Sys/Nuñez Pulse Ox Last 24 Hr 98.1 F-99.3 F 79-106 18-20 113-134/58-72 95-95 cor-rrr lungs clear abd soft,nt ext tneder right inner knee and inner ankle left foot and ankle are swollen, minimal erythema CBC, BMP 02/08/18 08:30 02/08/18 08:30 Laboratory Tests 02/11/18 02/11/18 06:00 06:00 ESR 109 H C-Reactive Protein 10.8 H lyme negative Microbiology 02/05/18 00:05 Blood - Peripheral Venous Blood Culture - Final NO GROWTH AFTER 5 DAYS INCUBATION 02/05/18 00:05 Blood - Peripheral Venous Blood Culture - Final NO GROWTH AFTER 5 DAYS INCUBATION 02/06/18 05:37 Synovial Fluid - Knee Gram Stain - Final 02/06/18 05:37 Synovial Fluid - Knee Body Fluid Culture - Preliminary 02/06/18 05:37 Synovial Fluid - Knee Anaerobic Culture - Final 02/05/18 00:15 Urine - Urine Clean Catch Urine Culture - Final Strep Agalactiae Group B a/p ?systemic process with low grade temp and multiple joints left knee/ankle swelling now with right knee and ankle pain esr/crp are elevated rheumatology evaluation chikugungya serology Lyme serology negative echo unremarkable reculture off antibiotics for fever consider MRI of the left ankle metastatic breast cancer d/w patient and family at bedside Problem List - Problems (1) Fever Code(s): R50.9 - FEVER, UNSPECIFIED (2) Swelling of left knee joint Code(s): M25.462 - EFFUSION, LEFT KNEE (3) Metastatic breast cancer Code(s): C50.919 - MALIGNANT NEOPLASM OF UNSP SITE OF UNSPECIFIED FEMALE BREAST
--- NOTE | 2018-02-11 19:33 | CONSULT ---
Consult Consult Specialty:: Rheumatology - History of Present Illness History of Present Illness: 67 year old female with a past medical history of HTN and metastasic breast cancer, admitted with fever and acute ankle and knee argthritis. HPI. One month ago the patient developed acute pain in the left ankle. At that time she was in [place]. She was treated with morphine and the pain resolved after 4 days. On 01/19/18, while in [facility], she had relapse of the arthritis in the left ankle. On 02/05/18 she developed fever ands pain in the left knee. The next day she was admitted to the hospital. At the present time she has significant pain in both knees and both ankles. She denies other joint involvement. Since admission she has not have fever, and no leukocytosis. Labs: ESR 109 and CRP 10.8. Creatinine 1.0 eGFR 55.6, uric acid 5.3. The left knee was tapped on 02/06/18. Synovial fluid: WBC; 48,374, N: 93%. Negative for crystals and culture is negative, - History Source History Provided By: Patient, Medical Record - Past Medical History Cardio/Vascular: Yes: HTN Gastrointestinal: Yes: GERD Psych: Yes: Anxiety - Past Surgical History Past Surgical History: Yes: Cholecystectomy, Hysterectomy Additional Surgical History: port -right chest wall - Alcohol/Substance Use Hx Alcohol Use: No History of Substance Use: reports: None - Smoking History Smoking history: Never smoked Have you smoked in the past 12 months: No - Social History Usual Living Arrangement: With Child ADL: Independent History of Recent Travel: Yes (just returned from [facility] 01/19) Home Medications - Allergies Allergies/Adverse Reactions: Allergies Allergy/AdvReac Type Severity Reaction Status Date / Time No Known Drug Allergies Allergy Verified 02/05/18 21:55 - Home Medications Home Medications: Ambulatory Orders Alprazolam [Xanax] 1 mg PO HS 05/30/17 Gabapentin 300 mg PO TID 05/30/17 Lisinopril/Hydrochlorothiazide [Lisinopril-Hctz 10-12.5 mg Tab] 1 each PO DAILY 05/30/17 Metoprolol Succinate [Toprol Xl] 25 mg PO DAILY 05/30/17 Tramadol HCl 50 mg PO PRN 05/30/17 Omeprazole 20 mg PO DAILY 02/05/18 Oxycodone HCl/Acetaminophen [Oxycodon-Acetaminophen 7.5-325] 1 each PO Q4H PRN 02/05/18 Family Disease History - Family Disease History Family Disease History: CA: Brother, Sister Review of Systems - Review of Systems Constitutional: reports: Malaise Eyes: reports: No Symptoms HENT: reports: No Symptoms Neck: reports: No Symptoms Cardiovascular: reports: No Symptoms Respiratory: reports: No Symptoms Gastrointestinal: reports: No Symptoms Genitourinary: reports: No Symptoms Musculoskeletal: reports: Other (See HPI) Neurological: reports: No Symptoms Physical Exam Vital Signs: Vital Signs Temperature 99.0 F 02/11/18 15:08 Pulse Rate 96 H 02/11/18 15:08 Respiratory Rate 18 02/11/18 15:08 Blood Pressure 145/73 02/11/18 15:08 O2 Sat by Pulse Oximetry (%) 95 02/11/18 09:00 Constitutional: Yes: Moderate Distress Eyes: Yes: WNL HENT: Yes: WNL Neck: Yes: WNL Cardiovascular: Yes: WNL Respiratory: Yes: WNL Gastrointestinal: Yes: WNL Musculoskeletal: Yes: Other (Both knees and both ankles are tender and swollen (the right ankle had only mild tenderness). No other active joints.) Labs: CBC, BMP 02/10/18 05:30 02/10/18 05:30 Microbiology 02/06/18 05:37 Synovial Fluid - Knee Gram Stain - Final 02/06/18 05:37 Synovial Fluid - Knee Anaerobic Culture - Final 02/06/18 05:37 Synovial Fluid - Knee Body Fluid Culture - Preliminary Laboratory Tests 02/05/18 02/06/18 02/06/18 00:15 05:37 05:37 ESR Total Bilirubin Direct Bilirubin AST ALT C-Reactive Protein Total Protein Albumin Urine Color Yellow Urine Appearance Clear Urine pH 5.0 D Ur Specific [place] 1.017 Urine Protein Negative Urine Glucose (UA) Negative Urine Ketones Negative Urine Blood Negative Urine Nitrite Negative Urine Bilirubin Negative Urine Urobilinogen Negative Ur Leukocyte Esterase Negative Fluid Source Synovial Fluid WBC 48,374 Fluid RBC 4,484 Fluid Neutrophils 93 Synovial Crystals Negative 02/10/18 02/11/18 02/11/18 05:30 06:00 06:00 ESR 109 H Total Bilirubin 0.9 Direct Bilirubin 0.3 H AST 69 H ALT 115 H C-Reactive Protein 10.8 H Total Protein 6.6 Albumin 3.1 L Urine Color Urine Appearance Urine pH Ur Specific [place] Urine Protein Urine Glucose (UA) Urine Ketones Urine Blood Urine Nitrite Urine Bilirubin Urine Urobilinogen Ur Leukocyte Esterase Fluid Source Fluid WBC Fluid RBC Fluid Neutrophils Synovial Crystals Problem List - Problems (1) Inflammatory arthritis Assessment/Plan: Inflammatory arthritis, oligoarticular, progressive in a patient with metastasic breast carcinoma. Based on the synovial fluid analysis, she has significant inflammation, not septic and not associated with crystal induced arthritis. Rule out Paraneoplasic polyartritis. Plan: I will discuss tomorrow with Dr. Hall treating with low dose steroids. Code(s): M19.90 - UNSPECIFIED OSTEOARTHRITIS, UNSPECIFIED SITE
[2018-02-11] MEDS: oxyCODONE HCL 5 MG TABLET PO PRN (21:26)
[2018-02-11] MEDS: ALPRAZolam 0.25 MG TABLET PO PRN (21:57)
--- NOTE | 2018-02-11 23:07 | PN ---
Progress Note (short form) - Note Progress Note: Patient seen and examined c/o left leg pain and rt. ankle/knee pain Last Vital Signs Temp Pulse Resp BP Pulse Ox 97.9 F 74 20 110/58 L 98 02/12/18 06:00 02/12/18 06:00 02/12/18 06:00 02/12/18 06:00 02/11/18 22:30 Cor: RSR, No murmurs, No gallops Lungs: Clear to P&A Abd: Soft, Normal bowel sounds, No organomegaly Ext:No significant edema Skin: No rashes, Integument intact Labs/MEds reviewed A/P 67yF with PMH of metastatic breast cancer with left femur, clavicle, spine, ribs; HTN; GERD; anxiety presented to the ED with fever and left leg pain. CT LS spine/pelvis/let femur showed osteoblastic mets in femurs/pelvis, L3 fentanyl/oxycodone duplex neg. Ortho consult noted Started faslodex this month suprapatellar effusion --no growth so fr ongoing rheumatologic/ID w/u for migratory polyarthritis
[2018-02-12] MEDS: GABAPENTIN 300 MG CAPSULE (FP) PO SCH ×3 (05:42→21:13)
--- NOTE | 2018-02-12 09:54 | PN ---
Progress Note (short form) - Note Progress Note: Ortho Pt seen and examined. left knee and ankle are much improved. She is c/o pain in right knee but this is also improving Selected Entries 02/12/18 06:00 Temperature 97.9 F Pulse Rate 74 Respiratory 20 Rate Blood Pressure 110/58 L Laboratory Tests 02/10/18 05:30 WBC 4.4 Hgb 9.3 L Hct 28.1 L Plt Count 236 Right knee-+ swelling, + ttp, decr rom calf soft, nt, nvi a/p knee immobilizer for comfort PT eval wbat dvt ppx pain control d/c planning d/w Dr. Purdy
[2018-02-12] MEDS: PANTOPRAZOLE 20 MG TABLET (FP) PO SCH (11:11)
[2018-02-12] MEDS: HYDROCHLOROTHIAZIDE 12.5 MG CAPSULE (FP) PO SCH (11:11)
[2018-02-12] MEDS: LISINOPRIL 10 MG TABLET (FP) PO SCH (11:11)
[2018-02-12] MEDS: ENOXAPARIN NA (PORCINE) 40 MG/0.4 ML DISP.SYRIN SQ SCH (11:11)
[2018-02-12] MEDS: metoPROLOL SUCCINATE 25 MG TAB.SR.24H (FP) PO SCH (11:11)
--- NOTE | 2018-02-12 14:19 | PN ---
Progress Note (short form) - Note Progress Note: Patient seen and examined at bedside. Legs elevated overnight and improved swelling per patient left knee and ankle swelling resolved had fever 100.8 yesterday evening Vital Signs Temperature 97.9 F 02/12/18 06:00 Pulse Rate 74 02/12/18 06:00 Respiratory Rate 20 02/12/18 06:00 Blood Pressure 110/58 L 02/12/18 06:00 O2 Sat by Pulse Oximetry (%) 98 02/11/18 22:30 PE: NAD lying in bed with legs elevated. RRR S1 S2 CTAB left knee is much less edematous and no longer warm. Left ankle not tender Right foot medially below the ankle with warm and erythematous nodule and tender. Mild right knee swelling with no erythema but hot to touch 02/06/18 05:37 Gram Stain - Final Synovial Fluid - Knee Body Fluid Culture - Final 02/11/18 19:30 Blood Culture - Pending Blood - Peripheral Venous 02/11/18 17:00 Blood Culture - Pending Blood - Peripheral Venous 02/05/18 00:05 Blood Culture - Final Blood - Peripheral Venous NO GROWTH AFTER 5 DAYS INCUBATION 02/05/18 00:05 Blood Culture - Final Blood - Peripheral Venous NO GROWTH AFTER 5 DAYS INCUBATION 02/05/18 00:15 Urine Culture - Final Urine - Urine Clean Catch Strep Agalactiae Group B 67F PMH of HTN, GERD, metastatic breast cancer with metastasis to left femur, clavicle, spine, ribs presented to the ED with left knee pain swelling and fever. 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 No fractures. no osteolytic lesions CT Lumbar spine shows-Unchanged contour, of height of vertebral bodies in comparison to the MRI of lumbosacral spine June 07, 2017. L1-L2. Loss of interval disc space height. Mild retrolisthesis of L1 on L2. Schmorl's node in the superior endplate of L2 vertebral body with sclerotic changes. Mild retrolisthesis of L2 on L3. Unchanged size of 2 sclerotic lesions in L3 vertebral body with intact cortex. Left femur Xray shows blastic bone lesions continue pain control Knee immobilizer per ortho continue physical therapy-at bedside - appreciated watch off ABx per ID Bone scan results noted radiation oncology consult appreciated. Will do chemo/RT when pain better controlled ortho follow up appreciated MRI T spine as PET showed new T4 lesion-MRI T spine reviewed no spinal cord impingement Will get rheumatology consult Dr Aquino. patient is having migratory polyarthitis.- consider low dose steroids Lyme ab Chikungunya Ab-pending Echo noted- no evidence of endocardititis (TTE) ESR/CRP elevated 109/10.8 respectively Pain better controlled with increased dose of oxycodone-10mg po q4h PRN pain Will follow Will start on prednisone 10mg po daily
--- NOTE | 2018-02-12 15:16 | PN ---
Physical Exam: SUBJECTIVE: Patient seen and examined. Ankle and joint pain is improved since starting prednisone. OBJECTIVE: Vital Signs Period Temp Pulse Resp BP Sys/Nuñez Pulse Ox Last 24 Hr 97.9 F-100.8 F 68-86 18-20 110-131/58-68 98 GENERAL: The patient is awake, alert, and fully oriented, in no acute distress. LUNGS: Breath sounds equal, clear to auscultation HEART: Regular rate and rhythm, S1, S2 ABDOMEN: Soft, nontender, nondistended EXTREMITIES: right knee warm to touch, no erythema, no swelling; right ankle tender, no erythema, no swelling NEUROLOGICAL: Cranial nerves II through XII grossly intact. Normal speech, gait not observed. Laboratory Results - last 24 hr 02/10/18 02/12/18 02/12/18 05:30 05:50 07:09 POC Glucometer 55 80 Lyme Screen IgG & IgM <0.91 Lyme IgM Quantitation <0.80 ASSESSMENT/PLAN: 68 year-old female with a PMH significant for HTN, and metastatic breast cancer s/p palliative RT to L2-L4 and distal half of left femur. Admitted for left knee and leg pain. Metastatic breast cancer --outside PET-CT showed new lesions at T4 and left intertrochanteric femur, started on Faslodex and Zometa --imaging here shows no fractures, but extensive osteoblastic or sclerotic mets at T5, T9, L3, pelvis, sacrum, rt clavicle, sternum, rt 9th rib, rt proximal femur, lt intertrochanteric mid and lower femur; uptake in left ankle is without corresponding blastic or lytic lesions on xray Inflammatory arthritis --presented with left knee and left leg pain and then evolved to bilateral knees and ankles --02/11: seen and evaluated by rheum: Inflammatory arthritis, oligoarticular , progressive in a patient with metastasic breast carcinoma. Based on the synovial fluid analysis, she has significant inflammation, not septic and not associated with crystal induced arthritis. Rule out Paraneoplasic polyartritis. --02/11: started psrednisone 10mg daily --pain presently well-managed, continue fentany patch, gabapentin, Ultram/ oxycodone as needed Hypertension --continue lisinopril, Toprol XL, HCTZ FEN Fluids: PO intake adequate Electrolytes: replete as indicated Nutrition: low sodium with Ensure Enlive BID DVT prophylaxis: lovenox Dispo: continues to require inpatient care. Full code. Visit type - Emergency Visit Emergency Visit: Yes ED Registration Date: 02/06/18 Care time: The patient presented to the Emergency Department on the above date and was hospitalized for further evaluation of their emergent condition. - New Patient This patient is new to me today: No - Critical Care Critical Care patient: No
--- NOTE | 2018-02-12 16:07 | PN ---
Progress Note (short form) - Note Progress Note: family at bedside still with right ankle and knee pain left leg unchanged loose stools improved low grade temp yesterday, none today feels well Vital Signs Period Temp Pulse Resp BP Sys/Nuñez Pulse Ox Last 24 Hr 97.9 F-100.8 F 68-86 18-20 110-131/58-68 98 cor-rrr lungs decreased bs at bases abd soft,nt ext still left ankle swelling- but less knees still painful but less CBC, BMP 02/10/18 05:30 02/10/18 05:30 02/11/18 02/11/18 06:00 06:00 ESR 109 H C-Reactive Protein 10.8 H lyme negative Microbiology 02/05/18 00:05 Blood - Peripheral Venous Blood Culture - Final NO GROWTH AFTER 5 DAYS INCUBATION 02/05/18 00:05 Blood - Peripheral Venous Blood Culture - Final NO GROWTH AFTER 5 DAYS INCUBATION 02/06/18 05:37 Synovial Fluid - Knee Gram Stain - Final 02/06/18 05:37 Synovial Fluid - Knee Body Fluid Culture - Preliminary 02/06/18 05:37 Synovial Fluid - Knee Anaerobic Culture - Final 02/05/18 00:15 Urine - Urine Clean Catch Urine Culture - Final Strep Agalactiae Group B a/p ?systemic process with low grade temp and multiple joints left knee/ankle swelling now with right knee and ankle pain esr/crp are elevated 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
[2018-02-12] MEDS: predniSONE 10 MG TABLET (UD) PO SCH (16:11)
--- NOTE | 2018-02-13 00:29 | PN ---
Progress Note (short form) - Note Progress Note: Patient seen and examined 02/12/18 c/o left leg pain and rt. ankle/knee pain AFVSS Cor: RSR, No murmurs, No gallops Lungs: Clear to P&A Abd: Soft, Normal bowel sounds, No organomegaly Ext:No significant edema Skin: No rashes, Integument intact Labs/MEds reviewed A/P 67yF with PMH of metastatic breast cancer with left femur, clavicle, spine, ribs; HTN; GERD; anxiety presented to the ED with fever and left leg pain. CT LS spine/pelvis/let femur showed osteoblastic mets in femurs/pelvis, L3 fentanyl/oxycodone duplex neg. Ortho consult noted Started faslodex this month. On monthly zometa ? paraneoplastic migratory polyarthritis--started 10mg prednisone per rheumatology monitor
[2018-02-13] MEDS: ALPRAZolam 0.25 MG TABLET PO PRN (02:24)
[2018-02-13] MEDS: GABAPENTIN 300 MG CAPSULE (FP) PO SCH ×2 (05:49→15:20)
[2018-02-13] MEDS: LISINOPRIL 10 MG TABLET (FP) PO SCH (10:25)
[2018-02-13] MEDS: HYDROCHLOROTHIAZIDE 12.5 MG CAPSULE (FP) PO SCH (10:25)
[2018-02-13] MEDS: predniSONE 10 MG TABLET (UD) PO SCH (10:25)
[2018-02-13] MEDS: PANTOPRAZOLE 20 MG TABLET (FP) PO SCH (10:25)
[2018-02-13] MEDS: metoPROLOL SUCCINATE 25 MG TAB.SR.24H (FP) PO SCH (10:25)
[2018-02-13] MEDS: ENOXAPARIN NA (PORCINE) 40 MG/0.4 ML DISP.SYRIN SQ SCH (10:25)
--- NOTE | 2018-02-13 15:13 | DS ---
Physical Exam: SUBJECTIVE: Patient seen and examined OBJECTIVE: Vital Signs Period Temp Pulse Resp BP Sys/Nuñez Pulse Ox Last 24 Hr 97.8 F-98.6 F 64-92 16-20 108-126/60-68 94-94 PHYSICAL EXAM GENERAL: The patient is awake, alert, and fully oriented, in no acute distress. LUNGS: Breath sounds equal, clear to auscultation HEART: Regular rate and rhythm, S1, S2 ABDOMEN: Soft, nontender, nondistended EXTREMITIES: right knee warm to touch, no erythema, no swelling; right ankle tender, no erythema, no swelling NEUROLOGICAL: Cranial nerves II through XII grossly intact. Normal speech, gait not observed. LABS CBCD WBC 4.4 K/mm3 (4.0-10.0) 02/10/18 05:30 RBC 3.44 M/mm3 (3.60-5.2) L 02/10/18 05:30 Hgb 9.3 GM/dL (10.7-15.3) L 02/10/18 05:30 Hct 28.1 % (32.4-45.2) L 02/10/18 05:30 MCV 81.6 fl (80-96) 02/10/18 05:30 MCHC 33.2 g/dl (32.0-36.0) 02/10/18 05:30 RDW 14.2 % (11.6-15.6) 02/10/18 05:30 Plt Count 236 K/MM3 (134-434) 02/10/18 05:30 MPV 7.9 fl (7.5-11.1) 02/10/18 05:30 CMP Sodium 137 mmol/L (136-145) 02/10/18 05:30 Potassium 4.0 mmol/L (3.5-5.1) 02/10/18 05:30 Chloride 100 mmol/L (98-107) 02/10/18 05:30 Carbon Dioxide 28 mmol/L (21-32) 02/10/18 05:30 Anion Gap 10 MMOL/L (8-16) 02/10/18 05:30 BUN 15 mg/dL (7-18) 02/10/18 05:30 Creatinine 1.0 mg/dL (0.55-1.3) 02/10/18 05:30 Creat Clearance w eGFR 55.64 (>60) 02/10/18 05:30 Calcium 8.3 mg/dL (8.5-10.1) L 02/10/18 05:30 Total Bilirubin 0.9 mg/dL (0.2-1) 02/10/18 05:30 AST 69 U/L (15-37) H 02/10/18 05:30 ALT 115 U/L (13-61) H 02/10/18 05:30 Alkaline Phosphatase 117 U/L (45-117) 02/10/18 05:30 Total Protein 6.6 g/dl (6.4-8.2) 02/10/18 05:30 Albumin 3.1 g/dl (3.4-5.0) L 02/10/18 05:30 HOSPITAL COURSE: Date of Admission:02/06/18 Date of Discharge: 02/13/18 68 year-old female with a PMH significant for HTN, and metastatic breast cancer s/p palliative RT to L2-L4 and distal half of left femur. Admitted for left knee and leg pain. Metastatic breast cancer --outside PET-CT showed new lesions at T4 and left intertrochanteric femur, started on Faslodex and Zometa --imaging here shows no fractures, but extensive osteoblastic or sclerotic mets at T5, T9, L3, pelvis, sacrum, rt clavicle, sternum, rt 9th rib, rt proximal femur, lt intertrochanteric mid and lower femur; uptake in left ankle is without corresponding blastic or lytic lesions on xray Inflammatory arthritis --presented with left knee and left leg pain and then evolved to bilateral knees and ankles --02/11: seen and evaluated by rheum: Inflammatory arthritis, oligoarticular , progressive in a patient with metastasic breast carcinoma. Based on the synovial fluid analysis, she has significant inflammation, not septic and not associated with crystal induced arthritis. Rule out Paraneoplasic polyartritis. --02/11: started prednisone 10mg daily with significant symptom improvement --pain presently well-managed, continue fentany patch, gabapentin, Ultram/ oxycodone as needed Hypertension --continued lisinopril, Toprol XL, HCTZ Minutes to complete discharge: 35 Discharge Summary Reason For Visit: SEPSIS Condition: Stable - Instructions Diet, Activity, Other Instructions: A prescription has been sent to your pharmacy for prednisone. Take this medication as directed. You have been given a 14 day supply. Please discuss continuing prednisone with Dr. Galvan when you see him on Thursday. Return to the emergency department for any new or worsening symptoms. Referrals: Shay Galvan MD [Staff Physician] - 02/16/18 10:00 am Disposition: HOME - Home Medications Comprehensive Discharge Medication List: Ambulatory Orders Alprazolam [Xanax] 1 mg PO HS 05/30/17 Gabapentin 300 mg PO TID 05/30/17 Lisinopril/Hydrochlorothiazide [Lisinopril-Hctz 10-12.5 mg Tab] 1 each PO DAILY 05/30/17 Metoprolol Succinate [Toprol Xl] 25 mg PO DAILY 05/30/17 Tramadol HCl 50 mg PO PRN 05/30/17 Omeprazole 20 mg PO DAILY 02/05/18 Oxycodone HCl/Acetaminophen [Oxycodon-Acetaminophen 7.5-325] 1 each PO Q4H PRN 02/05/18 predniSONE [Deltasone -] 10 mg PO DAILY #14 tablet 02/13/18 This patient is new to me today: No Emergency Visit: Yes ED Registration Date: 02/06/18 Care time: The patient presented to the Emergency Department on the above date and was hospitalized for further evaluation of their emergent condition. Critical Care patient: No - Discharge Referral Referred to [facility] No
[2018-02-13 15:24] VITALS: BP 123/70; PULSE 80; TEMP 98
== END 2018-02-13 18:05 | disposition home or self-care (01) | DRG 543 ==
LOC: JER 21:52 → JERBED 02-06 04:38 → J8W 02-06 07:07 → UNDODISIN 02-12 15:15
PROVIDERS: ADMIT Internal Medicine; ATTEND Nurse Practitioner Acute Care
PROC: 0S9D3ZX Drainage of Left Knee Joint, Percutaneous Approach, Diagnostic (ICD-10-PCS; principal; 2018-02-05)
DX: C79.51 Secondary malignant neoplasm of bone (principal); C41.3 Malignant neoplasm of ribs, sternum and clavicle; C41.2 Malignant neoplasm of vertebral column; M06.4 Inflammatory polyarthropathy; M06.89 Other specified rheumatoid arthritis, multiple sites; I10 Essential (primary) hypertension; K21.9 Gastro-esophageal reflux disease without esophagitis; C50.919 Malignant neoplasm of unspecified site of unspecified female breast; G89.3 Neoplasm related pain (acute) (chronic); F41.9 Anxiety disorder, unspecified; M25.462 Effusion, left knee
CPT/HCPCS: 36415; 71045-TC-FY; 72131-TC; 72147-TC; 72192-TC; 73552-TC-LT-FY; 73560-TC-LT-FY; 73610-TC-LT-FY; 73630-TC-LT; 73700-TC-RT; 78306-TC; 80048; 80053; 80076; 81003; 82150; 82550; 82553; 82803; 82945; 82962; 83605; 83615; 83735; 84100; 84157; 84484; 84550; 85025; 85610; 85651; 85730; 86140; 86618; 86790; 87040; 87070; 87075; 87086; 87186; 87205; 89050; 89060; 93005; 93010; 93306-TC; 97116-GP; 97161-GP; 99285-25; A9503; J0131; J7030

== ENCOUNTER 2018-02-15 22:25 | Inpatient (IN) | payer MEDICARE, OTHER ==
[2018-02-15] MEDS ORDERED: SODIUM CHLORIDE 0.9% 1000 ML INFUS.BAG IV STA (23:47)
[2018-02-15] MEDS ORDERED: ONDANSETRON 4 MG/2 ML VIAL IVPUSH ONE (23:48)
[2018-02-15] MEDS ORDERED: ACETAMINOPHEN 1000 MG/100 ML VIAL (NON FORMULARY) IVPB ONE (23:48)
[2018-02-15] MEDS ORDERED: morphine CARPU-JECT 4 MG/1 ML DISP.SYRIN IVPUSH ONE (23:48)
[2018-02-15] MEDS ORDERED: morphine SULFATE 4 MG/ML VIAL ONE (23:53)
[2018-02-15] MEDS ORDERED: ACETAMINOPHEN INJECTION 100 ML IVPB ONE (23:53)
[2018-02-15] MEDS ORDERED: ONDANSETRON 4 MG/2 ML VIAL ONE (23:54)
--- NOTE | 2018-02-16 00:31 | PDOC ---
History of Present Illness - General Chief Complaint: SIRS, Suspected/Possible Stated Complaint: FEVER Time Seen by Provider: 02/15/18 23:30 History Source: Patient - History of Present Illness Initial Comments: 02/16/18 00:28 Patient is a 68F with a history of breast cancer with multiple mets to multiple bones, possible migratory polyarthritis, recent admission with antibiotic coverage for possible sepsis here today with fever, diarrhea, and vomiting. Patient was given antibiotics for sepsis one week ago, discharged two days ago. Endorses 3 episodes of vomiting and multiple episodes of diarrhea, watery. Patient was febrile to 102, took motrin at 8pm today. Endorses abdominal pain worse in epigastrium and RUQ. Denies dysuria. Past History - Past Medical History Allergies/Adverse Reactions: Allergies Allergy/AdvReac Type Severity Reaction Status Date / Time No Known Drug Allergies Allergy Verified 02/15/18 22:35 Home Medications: Ambulatory Orders Alprazolam [Xanax] 1 mg PO HS 05/30/17 Gabapentin 300 mg PO TID 05/30/17 Lisinopril/Hydrochlorothiazide [Lisinopril-Hctz 10-12.5 mg Tab] 1 each PO DAILY 05/30/17 Metoprolol Succinate [Toprol Xl] 25 mg PO DAILY 05/30/17 Tramadol HCl 50 mg PO PRN 05/30/17 Omeprazole 20 mg PO DAILY 02/05/18 Oxycodone HCl/Acetaminophen [Oxycodon-Acetaminophen 7.5-325] 1 each PO Q4H PRN 02/05/18 predniSONE [Deltasone -] 10 mg PO DAILY #14 tablet 02/13/18 Anemia: No Asthma: No Cancer: Yes (breast cancer left, bone) Cardiac Disorders: No CVA: No COPD: No CHF: No Dementia: No Diabetes: No GI Disorders: No Disorders: No HTN: Yes Hypercholesterolemia: No Liver Disease: No Seizures: No Thyroid Disease: No - Surgical History Abdominal Surgery: Yes Appendectomy: No Cardiac Surgery: No Cholecystectomy: Yes Lung Surgery: No Neurologic Surgery: No Orthopedic Surgery: No - Immunization History Immunization Up to Date: Yes - Suicide/Smoking/Psychosocial Hx Smoking History: Never smoked Have you smoked in the past 12 months: No Hx Alcohol Use: No Drug/Substance Use Hx: No Substance Use Type: None Hx Substance Use Treatment: No Review of Systems - Review of Systems Comments:: 02/16/18 00:44 GENERAL/CONSTITUTIONAL: +fever +chills. +weakness. HEAD, EYES, EARS, NOSE AND THROAT: No change in vision. No sore throat. CARDIOVASCULAR: No chest pain or shortness of breath RESPIRATORY: No cough, wheezing, or hemoptysis. GASTROINTESTINAL: +nausea, +vomiting, +diarrhea. GENITOURINARY: No dysuria, frequency, or change in urination. MUSCULOSKELETAL: No joint or muscle swelling or pain. No neck or back pain. SKIN: No rash NEUROLOGIC: No headache, vertigo, loss of consciousness, or change in strength/ sensation. ENDOCRINE: No increased thirst. No abnormal weight change HEMATOLOGIC/LYMPHATIC: No anemia, easy bleeding, or history of blood clots. ALLERGIC/IMMUNOLOGIC: No hives or skin allergy. *Physical Exam - Vital Signs Last Vital Signs Temp Pulse Resp BP Pulse Ox 99.5 F 119 H 18 115/65 99 02/15/18 22:31 02/15/18 22:31 02/15/18 22:31 02/15/18 22:31 02/15/18 22:31 - Physical Exam Comments: 02/16/18 00:49 GENERAL: Awake, alert, and fully oriented, in no acute distress HEAD: No signs of trauma, normocephalic, atraumatic EYES: PERRLA, EOMI, sclera anicteric, conjunctiva clear ENT: Auricles normal inspection, hearing grossly normal, nares patent, oropharynx clear without exudates. Dry mucosa NECK: Normal ROM, supple, no lymphadenopathy, JVD, or masses LUNGS: No distress, speaks full sentences, clear to auscultation bilaterally HEART: Regular rate and rhythm, normal S1 and S2, no murmurs, rubs or gallops, peripheral pulses normal and equal bilaterally. ABDOMEN: Soft, +RUQ/epigastric tenderness normoactive bowel sounds. No guarding , no rebound. No masses EXTREMITIES: Normal inspection, Normal range of motion, no edema. No clubbing or cyanosis. NEUROLOGICAL: Cranial nerves II through XII grossly intact. Normal speech, no focal sensorimotor deficits SKIN: Warm, Dry, normal turgor, no rashes or lesions noted. ED Treatment Course - LABORATORY CBC & Chemistry Diagram: 02/16/18 00:15 02/16/18 00:15 - RADIOLOGY Radiology Studies Ordered: Category Date Time Status CHEST X-RAY PORTABLE* [RAD] Stat Radiology 02/15/18 23:47 Ordered - Medications Given in the ED: ED Medications Discontinued Medications Generic Name Dose Route Start Last Admin Trade Name Amor PRN Reason Stop Dose Admin Acetaminophen 1,000 mg 02/15/18 23:48 02/16/18 00:25 Ofirmev Injection - IVPB 02/15/18 23:49 1,000 mg ONCE ONE Administration Morphine Sulfate 4 mg 02/15/18 23:48 02/16/18 00:25 Morphine Injection - IVPUSH 02/15/18 23:49 4 mg ONCE ONE Administration Ondansetron HCl 4 mg 02/15/18 23:48 02/16/18 00:26 Zofran Injection IVPUSH 02/15/18 23:49 4 mg ONCE ONE Administration Sodium Chloride 2,041 ml 02/15/18 23:47 02/16/18 00:24 Normal Saline - 30 ml/kg (2041 ml) 02/15/18 23:48 2,041 ml IV Administration ONCE STA Medical Decision Making - Medical Decision Making 02/16/18 00:49 Patient is 68F with history of breast cancer with mets, ?polymigratory polyarthritis, HTN here today with fever, diarrhea, abdominal pain. Vitals notable for HR of 119, no fever at this time but took ibuprofen prior to coming in. Warm to the touch. Discussed with Dr Hall, suspects paraneoplastic syndrome but infection also possible. Will evaluate with septic workup and abdominal CT. Will treat with fluids, tylenol, morphine. 02/16/18 02:53 Laboratory Tests 02/16/18 02/16/18 02/16/18 00:15 00:15 00:15 WBC 12.5 H Hgb 10.2 L Plt Count 395 D BUN 15 Creatinine 1.1 Troponin I < 0.02 CBC shows leukocytosis, otherwise normal. CMP reassuing. Troponin undetectable. CXR clear. CT shows scattered sclerotic foci in bones, possible colitis. C diff culture pending. Will cover empirically with ceftriaxone and metronidazole. 02/16/18 03:10 Accepted for admission by Dr Farr. 02/16/18 03:48 EKG shows sinus tachycardia with rate of 107. No st elevations/depressions. Normal axis. Normal intervals. No significant t wave abnormalities. *DC/Admit/Observation/Transfer Diagnosis at time of Disposition: Colitis, Fever, Metastatic breast cancer - Discharge Dispostion Condition at time of disposition: Stable Decision to Admit order: Yes - Referrals - Patient Instructions - Post Discharge Activity
[2018-02-16 00:33] LABS: BASO % 0.3 % (0-2.0); EOS % 0.3 % (0-4.5); HEMATOCRIT 30.5 % (32.4-45.2); HEMOGLOBIN 10.2 GM/dL (10.7-15.3); LYMPH % 6.4 % (8-40); MCH 27.3 pg (25.7-33.7); MCHC 33.3 g/dl (32.0-36.0); MEAN CELL VOLUME 81.9 fl (80-96); MEAN PLT VOLUME 7.4 fl (7.5-11.1); PLATELET COUNT 395 K/MM3 (134-434); RBC 3.72 M/mm3 (3.60-5.2); RDW 13.7 % (11.6-15.6); WHITE BLOOD COUNT 12.5 K/mm3 (4.0-10.0)
[2018-02-16 00:47] LABS: INR 1.08 (0.83-1.09); PROTHROMBIN TIME (PATIENT) 12.7 SEC (9.7-13.0)
[2018-02-16 00:50] LABS: ACTIVATED PTT 33.3 SECONDS (25.2-36.5)
[2018-02-16 00:54] LABS: GLUCOSE,RANDOM 104 mg/dL (74-106)
[2018-02-16 00:55] LABS: ALBUMIN 3.6 g/dl (3.4-5.0); ALK PHOS 130 U/L (45-117); ANION GAP 8 MMOL/L (8-16); BILIRUBIN,TOTAL 0.4 mg/dL (0.2-1); BLOOD UREA NITROGEN 15 mg/dL (7-18); CALCIUM 8.7 mg/dL (8.5-10.1); CHLORIDE 102 mmol/L (98-107); CO2 26 mmol/L (21-32); CREATININE 1.1 mg/dL (0.55-1.3); POTASSIUM 3.6 mmol/L (3.5-5.1); SGOT/AST 31 U/L (15-37); SGPT/ALT 108 U/L (13-61); SODIUM 136 mmol/L (136-145); TOT PROT 7.5 g/dl (6.4-8.2)
--- NOTE | 2018-02-16 02:48 | PDOC ---
Attending Attestation - Resident Resident Name: Lemuel Torres - ED Attending Attestation I have performed the following: I have examined & evaluated the patient, The case was reviewed & discussed with the resident, I agree w/resident's findings & plan - HPI HPI: 02/16/18 03:09 Julianna Escobar 68 YOF with metastatic breast ca to femur, clavicle, spine, ribs, HTN, HLD, GERD, paraneoplastic migratory polyarthritis, on chronic steroids now with fever, n/v/d today. 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 multiple episodes of watery brown diarrhea x 8 episodes, epigastric pain, n/v. Recent CT with metastatic disease in femur/pelvis, suspected and vancomycin/ zosyn for presumed sepsis in immunocompromised patient. Treated for presumed feverse 2/2 paraneoplastic process. - Physicial Exam PE: 02/16/18 03:14 NAD, well appearing, MMM, nl conjunctiva, anicteric; neck supple. lungs clear, RRR, abdomen soft nondistended, +epigastric TTP, no sr's sign. no CVAT. [place] x4, no focal neuro deficits. No peripheral edema. normal color for ethnicity, WWP. - Medical Decision Making 02/16/18 03:15 68 YOF with metastatic breast ca, paraneoplastic syndrome, GERD, HTN HLD p/w n/v /d, immunocompromised fever. DDx. C diff colitis, acute colitis, gastroenteritis, hepatitis, dehydration, IC fever, metabolic/electrolyte derangements, UTI, bacteremia, pneumonia Vital signs reviewed, tachycardic and tactile fever. Prior notes reviewed, including admissions, discharges and consultations. laboratory results and imaging reviewed, basic labs and lytes notable for increased leukocytosis of 12K, changed from prior, neutrophilic predominance. LFTs and coags normal. UA_neg for infection or ketones. CXR_negative, wnl. Cardiac panel_trop neg. EKG sinus tachycardia, no interval abnormalities, narrow QRS, ST and T wave segments and morphology normal. Nonspecific T wave abnormalities ED course: no acute events, remained stable and well appearing. Clinically improved after interventions, including IVF and sepsis boluses, tylenol. sent for C diff antigen, stool wbcs, stool culture - pt has not been able to produce sample yet, will await for definitive testing. blood and urine cultures pending. CT a/p with ?colitis in cecum, post cholecystectomy and metastatic disease, otherwise no appy, no bowel obstruction. empiric tx with ceftriaxone/flagyl for colitis, pend C diff testing to determine if needed PO vancomycin. Dispo: Admit for dehydration, suspected colitis r/o C diff on contact precautions, . Discussed results and management plan with pt and family member at bedside, agree with impression and plan admit to hospitalist team, seeing primarily Dr. Galvan, no primary doctor per family 02/16/18 05:20
[2018-02-16 03:37] LABS: URINE APPEARANCE CLEAR; URINE BILIRUBIN NEGATIVE (<2.0 mg/dL); URINE COLOR STRAW; URINE GLUCOSE (UA) NEGATIVE (NEGATIVE); URINE KETONE NEGATIVE (NEGATIVE); URINE LEUK ESTERASE NEGATIVE (NEGATIVE); URINE NITRITE NEGATIVE (NEGATIVE); URINE PROTEIN NEGATIVE (NEGATIVE); URINE UROBILINOGEN NEGATIVE mg/dL (0.2-1.0)
--- NOTE | 2018-02-16 04:23 | HP ---
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 In addition, endorses 3 episodes of billious, nonbloody vomiitng today, associated with dull, nonradiating epigastric pain. Today she ate hardboiled eggs, jellow, shimp broth with vegetables, and grilled chicken all prepared at home. She endorses that she was recently hospitalized and discharged two days ago for similar complaints of fevers and diarrhea. 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 Admits compliance with the prednisone at home. Admits chills, malaise, loss of appetite, and 10lbs unintentional weight loss over past two weeks. Denies cough, shortness of breath, chest pain, palpitations. ER course was notable for: (1) IV normal saline (2) Stool culture, urine culture, blood cultures (3) Chest xray Recent Travel: [place] 4 months ago PAST MEDICAL HISTORY: stage IV breast cancer, GERD, anxiety PAST SURGICAL HISTORY: B/L tubal ligation Social History: Smoking: denies smoking history Alcohol: denies alcohol use Drugs: denies illicit drug use Lives: at home with daughter. Family History: Allergies No Known Drug Allergies Allergy (Verified 02/15/18 22:35) HOME MEDICATIONS: Home Medications Medication Instructions Recorded Alprazolam [Xanax] 1 mg PO HS 05/30/17 Gabapentin 300 mg PO TID 05/30/17 Lisinopril/Hydrochlorothiazide 1 each PO DAILY 05/30/17 [Lisinopril-Hctz 10-12.5 mg Tab] Metoprolol Succinate [Toprol Xl] 25 mg PO DAILY 05/30/17 Tramadol HCl 50 mg PO PRN 05/30/17 Omeprazole 20 mg PO DAILY 02/05/18 Oxycodone HCl/Acetaminophen 1 each PO Q4H PRN 02/05/18 [Oxycodon-Acetaminophen 7.5-325] predniSONE [Deltasone -] 10 mg PO DAILY #14 tablet 02/13/18 REVIEW OF SYSTEMS As per HPI PHYSICAL EXAMINATION Vital Signs - 24 hr 02/15/18 02/15/18 02/16/18 22:25 22:31 01:14 Temperature 99.5 F 99.5 F Pulse Rate 106 H 119 H Pulse Rate [ 102 H Left Radial] Respiratory 18 19 Rate Blood Pressure 115/65 Blood Pressure 97/55 L [Right Arm] O2 Sat by Pulse 96 99 99 Oximetry (%) 02/16/18 03:06 Temperature 98.4 F Pulse Rate Pulse Rate [ 95 H Left Radial] Respiratory Rate Blood Pressure Blood Pressure 114/72 [Right Arm] O2 Sat by Pulse 100 Oximetry (%) GENERAL: Awake, alert, and fully oriented, in no acute distress. HEAD: Normal with no signs of trauma. EYES: Pupils equal, round and reactive to light, extraocular movements intact, sclera anicteric, conjunctiva clear. EARS, NOSE, THROAT: Oropharynx clear without exudates. Moist mucous membranes. NECK: Normal range of motion, supple without lymphadenopathy, JVD, or masses. LUNGS: Breath sounds equal, clear to auscultation bilaterally. No wheezes, and no crackles. No accessory muscle use. HEART: Regular rate and rhythm, normal S1 and S2 without murmur, rub or gallop. ABDOMEN: Soft, mild epigastric tenderness to palpation. Not distended, normoactive bowel sounds x4 quadrants. No guarding, no rebound, No hepatomegaly or splenomegaly appreciated. MUSCULOSKELETAL: Normal range of motion at all joints. No bony deformities or tenderness. UPPER EXTREMITIES: 2+ radial pulses b/l, warm, well-perfused. LOWER EXTREMITIES: 2+ dorsalis pedis pulses b/l, warm, well-perfused. No calf tenderness. No peripheral edema b/l. NEUROLOGICAL: Cranial nerves II-XII intact. Normal speech. PSYCHIATRIC: Cooperative. Appropriate mood and affect upon my encounter. SKIN: Warm, dry. Laboratory Results - last 24 hr 02/16/18 02/16/18 02/16/18 00:15 00:15 00:15 WBC 12.5 H RBC 3.72 Hgb 10.2 L Hct 30.5 L MCV 81.9 MCH 27.3 MCHC 33.3 RDW 13.7 Plt Count 395 D MPV 7.4 L Absolute Neuts (auto) 10.7 H Neutrophils % 86.0 H D Lymphocytes % 6.4 L D Monocytes % 7.0 Eosinophils % 0.3 D Basophils % 0.3 Nucleated RBC % 0 PT with INR 12.70 INR 1.08 PTT (Actin FS) 33.3 Sodium 136 Potassium 3.6 Chloride 102 Carbon Dioxide 26 Anion Gap 8 BUN 15 Creatinine 1.1 Creat Clearance w eGFR 49.69 Random Glucose 104 Lactic Acid Calcium 8.7 Total Bilirubin 0.4 AST 31 ALT 108 H Alkaline Phosphatase 130 H Troponin I Total Protein 7.5 Albumin 3.6 Urine Color Urine Appearance Urine pH Ur Specific [place] Urine Protein Urine Glucose (UA) Urine Ketones Urine Blood Urine Nitrite Urine Bilirubin Urine Urobilinogen Ur Leukocyte Esterase 02/16/18 02/16/18 02/16/18 00:15 00:15 03:10 WBC RBC Hgb Hct MCV MCH MCHC RDW Plt Count MPV Absolute Neuts (auto) Neutrophils % Lymphocytes % Monocytes % Eosinophils % Basophils % Nucleated RBC % PT with INR INR PTT (Actin FS) Sodium Potassium Chloride Carbon Dioxide Anion Gap BUN Creatinine Creat Clearance w eGFR Random Glucose Lactic Acid 1.1 Calcium Total Bilirubin AST ALT Alkaline Phosphatase Troponin I < 0.02 Total Protein Albumin Urine Color Straw Urine Appearance Clear Urine pH 5.0 Ur Specific [place] 1.046 H Urine Protein Negative Urine Glucose (UA) Negative Urine Ketones Negative Urine Blood Negative Urine Nitrite Negative Urine Bilirubin Negative Urine Urobilinogen Negative Ur Leukocyte Esterase Negative ASSESSMENT/PLAN: Patient is a 68 year old female with history of stage IV breast cancer metastatic to bone, with complaint of fevers, diarrhea, vomiting, and abdominal pain. Diarrhea- secondary to C.difficile, possible colitis -Patient was recently hospitalized and treated with Vancomycin and Zosyn. -CT abdomen pelvis shows mild thickening of cecum, transverse colon. Follow official reading. -Begin Vancomycin 125mg PO Q6H -Flagyl 500mg IV Q8H -Levaquin 750mg IV Q24H -LR at 100mL/ hour -NPO for now. -F/U ID consult (Dr. Rodriguez) -F/U blood, stool, urine cultures -F/U ESR, CRP, lactoferrin. Chest tightness -Patient endorsed chest tightness with shortness of breath, lasting approx. 5 min -EKG -Well's score 4 -F/U CTA chest -Cardiac monitoring -First troponin 0.02. Will trend Stage IV breast CA -Patient has received chemotherapy, radiotherapy, and hormonal therapy with Dr. Galvan in the past -F/U oncology (Dr. Galvan) consult Paraneoplastic arthritis -Prednisone 10mg PO daily -Consider rheumatology consult with Dr. Aquino FEN -IV lactated ringers at 100mL/ hour -Follow CMP -NPO Prophylaxis -Heparin 5000u subq TID Disposition -Observation in medical-surgical floor. Visit type - Emergency Visit Emergency Visit: Yes ED Registration Date: 02/16/18 Care time: The patient presented to the Emergency Department on the above date and was hospitalized for further evaluation of their emergent condition. - New Patient This patient is new to me today: Yes Date on this admission: 02/16/18 - Critical Care Critical Care patient: No
--- NOTE | 2018-02-16 04:35 | PN ---
Teaching Attending Note Name of Resident: Graciela Farr ATTENDING PHYSICIAN STATEMENT I saw and evaluated the patient. I reviewed the resident's note and discussed the case with the resident. I agree with the resident's findings and plan as documented. SUBJECTIVE: Seen and examined with resident. Please refer to resident HPI for additional historical info. In summation, this is a 68 y/o HF with a PMH significant for Stage IV Breast Cancer with mets to bones on prior chemo/HT currently following with oncology planning to restart chemo and radiation. She was recently discharged from our service on prednisone for migratory polyarthritis. She presents today at the behest of her oncologist due to fevers; she has been having off and on fevers at home and they have not improved with conservative management. She had loose stools when she was here in the hospital which improved but now are happening again; not fully liquid but barely formed. She did get abx within the past 30 days. The cause of her fevers was thought to be the paraneoplastic cause. She had ESR elevated >100 at that time as well. Concern from ER regarding Cdiff. No kelsea collitis on CT prelim read, stool toxin pending. Admit to medicine for fevers and r/o C dif. When I spoke to her with the residents the daughter tells me that she had an episode of chest tightness while in the CT. Did not desat. No kelsea chest pain , persay. Wells score would be 4 which puts her at moderate risk of PE. 10 sys ROS done and negative aside from HPI PMH/PSH per chart FH asked and noncontributory Social denies EtOH or drugs, lives at home with family. OBJECTIVE: VS reviewed, labs reviewed, imaging reviewed NAD resting in bed AAO Tachycardic with normal rhythm no mgr Lungs CTAB with sym exp NT ND +BS no hsm NC AT EOMI PERRLA Trachea midline, no LN, no JVD ASSESSMENT AND PLAN: Mrs. Levine presents to the ER with fevers, tachycardia, and diarrhea. She was treated for migratory arthritis associated with paraneoplastic issues with prednisone which was thought to cause her fevers during her last admission. She also developed chest tightness in the CT scanner and has an elevated Wells Score. 1) Fever -Ddx includes 2/2 infectious process vs. 2/2 paraneoplastic migratory polyarthralgias. -Consulting Dr. Rodriguez (ID); monitor fevers. -Discussing each issue separately. 2) Diarrhea -Rule out infectious causes; prelim read on CT didn't endorse kelsea colitis but will await final read. Checking ESR, CRP, stool and blood cultures. Checking C Diff and Lactoferrin. If infectious workup negative we will discontinue empiric antibiotics. Of course, we will defer abx to ID. Should note she was having loose stools when she was in the hospital here last time. 3) Metastatic Breast Cancer -Stage IV mets to bone (clavicle, L femoral, spine, ribs). Following with oncology. We will let their service know she is here. 4) Migratory Arthritis -Continue prednisone; check ESR and CRP -If no infectious diarrhea, consult rheumatology. May be inclined to titrate dose of pred up if no infectious cause as this was likely the trigger of her fevers during her last hospitalization 5) Chest Tightness -Wells score 4; check CTA to r/o PE 6) HTN -Hold antihypertensives, restart when clinically appropriate 7) Tachycardia -Could be due to fluid depletion from diarrhea. Hydrating. Negative lactate. Ensure she is not septic. Also ruling out PE as stated above in plan. Confirmed with patient and daughter she is Full Code
[2018-02-16] MEDS: LACTATED RINGERS SOLUTION 1,000 ML/1,000 ML INFUS.BAG IV SCH ×4 (04:59→22:42)
[2018-02-16] MEDS ORDERED: HEPARIN NA (PORCINE) 5,000 UNITS/ML 1ML VIAL ONE (06:13)
[2018-02-16] MEDS: VANCOMYCIN 250 MG/5 ML ORAL SOLUTION PO SCH ×3 (06:32→18:10)
[2018-02-16] MEDS: HEPARIN NA (PORCINE) 5,000 UNITS/ML 1ML VIAL SQ SCH ×3 (06:32→22:42)
[2018-02-16 08:52] LABS: HEMATOCRIT 28.1 % (32.4-45.2); HEMOGLOBIN 9.4 GM/dL (10.7-15.3); MCH 27.4 pg (25.7-33.7); MCHC 33.6 g/dl (32.0-36.0); MEAN CELL VOLUME 81.6 fl (80-96); MEAN PLT VOLUME 6.9 fl (7.5-11.1); PLATELET COUNT 353 K/MM3 (134-434); RBC 3.44 M/mm3 (3.60-5.2); WHITE BLOOD COUNT 10.5 K/mm3 (4.0-10.0)
[2018-02-16] MEDS ORDERED: METOCLOPRAMIDE HCL INJECTION 10 MG/2 ML VIAL IVPUSH ONE (09:06)
[2018-02-16] MEDS ORDERED: METOCLOPRAMIDE HCL INJECTION 10 MG/2 ML VIAL ONE (09:23)
[2018-02-16 09:26] LABS: ALBUMIN 2.8 g/dl (3.4-5.0); ALK PHOS 114 U/L (45-117); ANION GAP 8 MMOL/L (8-16); BILIRUBIN,TOTAL 0.5 mg/dL (0.2-1); BLOOD UREA NITROGEN 10 mg/dL (7-18); CALCIUM 7.5 mg/dL (8.5-10.1); CHLORIDE 107 mmol/L (98-107); CO2 24 mmol/L (21-32); GLUCOSE,RANDOM 127 mg/dL (74-106); MAGNESIUM 1.9 mg/dL (1.8-2.4); PHOSPHOROUS 2.9 mg/dL (2.5-4.9); POTASSIUM 3.7 mmol/L (3.5-5.1); SGOT/AST 22 U/L (15-37); SGPT/ALT 83 U/L (13-61); SODIUM 139 mmol/L (136-145); TOT PROT 6.5 g/dl (6.4-8.2)
[2018-02-16] MEDS ORDERED: ONDANSETRON 4 MG/2 ML VIAL IVPUSH ONE (12:13)
--- NOTE | 2018-02-16 12:35 | CONSULT ---
Consult Consult Specialty:: Heme/Onc Referred by:: Hospitalist Reason for Consultation:: metastatic breast Ca. paraneoplastic syndrome causing arthritis - History of Present Illness Chief Complaint: fever History of Present Illness: 68F with history of metastatic breast Ca presents to the hospital for fever nausea, vomting, and diarrhea. Daughter and at bedside. Patient recently discharged 3 days ago. 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 Patient was feeling fins thursday morning and woke up feeling like a new person. Then yesterday the patient startng to have fever and chills. Her temperature was initially 101.3 per daughter and despite Motrin went up to 101.7. They called Dr. Galvan who informed then to go to thespital if her fever does not break within an hour and it didnt so her daughter gave her mom another dose of motrin and went to the hospital. Upon arrival she was noted to be afebrile but tachycardic and weak. She has been having bilious vomiting and has been having diarrhea. All food was prepared and cooked at home and multiple people ate the same food without symptoms. She had a CT scan of the abdomen and pelvis and was found to have possible colitis. ABx given by started by medical team. Pending ID consult. Daughter showed me a video of her mother actively vomiting green vomit. - History Source History Provided By: Patient, Family Member Limitations to Obtaining History: Clinical Condition - Past Medical History Cardio/Vascular: Yes: HTN Gastrointestinal: Yes: GERD Heme/Onc: Yes: Cancer (metastatic breast Ca) Psych: Yes: Anxiety - Past Surgical History Past Surgical History: Yes: Cholecystectomy, Hysterectomy - Alcohol/Substance Use Hx Alcohol Use: No History of Substance Use: reports: None - Smoking History Smoking history: Never smoked Have you smoked in the past 12 months: No - Social History Usual Living Arrangement: With Child ADL: Independent History of Recent Travel: Yes (just returned from [facility] 01/19) Home Medications - Allergies Allergies/Adverse Reactions: Allergies Allergy/AdvReac Type Severity Reaction Status Date / Time No Known Drug Allergies Allergy Verified 02/15/18 22:35 - Home Medications Home Medications: Ambulatory Orders Alprazolam [Xanax] 1 mg PO HS 05/30/17 Gabapentin 300 mg PO TID 05/30/17 Lisinopril/Hydrochlorothiazide [Lisinopril-Hctz 10-12.5 mg Tab] 1 each PO DAILY 05/30/17 Metoprolol Succinate [Toprol Xl] 25 mg PO DAILY 05/30/17 Tramadol HCl 50 mg PO PRN 05/30/17 Omeprazole 20 mg PO DAILY 02/05/18 Oxycodone HCl/Acetaminophen [Oxycodon-Acetaminophen 7.5-325] 1 each PO Q4H PRN 02/05/18 predniSONE [Deltasone -] 10 mg PO DAILY #14 tablet 02/13/18 Family Disease History - Family Disease History Family Disease History: CA: Brother, Sister Review of Systems - Review of Systems Constitutional: reports: Chills, Diaphoresis, Fever Eyes: reports: No Symptoms HENT: reports: No Symptoms Neck: reports: No Symptoms Cardiovascular: reports: No Symptoms Respiratory: reports: No Symptoms Gastrointestinal: reports: Diarrhea, Vomiting (bilious) Genitourinary: reports: No Symptoms Musculoskeletal: reports: Back Pain, Joint Pain, Joint Swelling Neurological: reports: No Symptoms Physical Exam Vital Signs: Vital Signs Temperature 98.7 F 02/16/18 08:34 Pulse Rate 106 H 02/16/18 08:34 Respiratory Rate 17 02/16/18 08:34 Blood Pressure 126/61 02/16/18 08:34 O2 Sat by Pulse Oximetry (%) 96 02/16/18 06:06 Constitutional: Yes: Well Nourished, No Distress Eyes: Yes: Conjunctiva Clear, EOM Intact, PERRL HENT: Yes: Atraumatic, Normocephalic. No: Thrush Neck: Yes: Supple, Trachea Midline Cardiovascular: Yes: Tachycardia, Other (chest tenderness) Respiratory: Yes: Regular, CTA Bilaterally Gastrointestinal: Yes: Soft. No: Tenderness Edema: No Psychiatric: Yes: Alert, Oriented Labs: CBC, BMP 02/16/18 08:40 02/16/18 08:40 Imaging - Results Chest X-ray: Report Reviewed, Image Reviewed Cat Scan: Report Reviewed, Image Reviewed (possible thickening of transverse and sigmoid colon can not rule out colitis) Assessment/Plan 67F PMH of HTN, GERD, metastatic breast cancer with metastasis to left femur, clavicle, spine, ribs presented to the ED fever vomiting and diarrhea. 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
[2018-02-16] MEDS ORDERED: ONDANSETRON 4 MG/2 ML VIAL IVPUSH PRN (14:20)
--- NOTE | 2018-02-16 15:47 | CON.ID ---
Consult Consult Specialty:: infectious disease Referred by:: hospitalist Reason for Consultation:: fever, vomiting, diarrhea - History of Present Illness Chief Complaint: diarrhea History of Present Illness: 68 yo female with metastatic breast cancer- developed reent polyarticlar arthritis- was hospitalized last week reeived 3 days of rocephin- cultues negative, antibiotics were stopped she originally presented with fevers at home-101.2 lyme negative, cultures negative she was discharged home over the weekend on po prednisone-10 mg she developed vomiting and profuse diarrhea at home-nonbloody bilious vomiting no abdominal pain profuse diarrhea no one else is sick, no unusual food preferences received levaquin, flagyl and po vancomycin today stool cdiff is positive for toxin and antigen joint symptoms have all improved - History Source History Provided By: Patient, Family Member, Medical Record Limitations to Obtaining History: No Limitations - Past Medical History Cardio/Vascular: Yes: HTN Gastrointestinal: Yes: GERD Heme/Onc: Yes: Cancer (breast with bone mets- s/p RT last year) Psych: Yes: Anxiety - Past Surgical History Past Surgical History: Yes: Cholecystectomy, Hysterectomy - Alcohol/Substance Use Hx Alcohol Use: No History of Substance Use: reports: None - Smoking History Smoking history: Never smoked Have you smoked in the past 12 months: No - Social History Usual Living Arrangement: With Child ADL: Independent History of Recent Travel: Yes (just returned from [facility] 01/19) Home Medications - Allergies Allergies/Adverse Reactions: Allergies Allergy/AdvReac Type Severity Reaction Status Date / Time No Known Drug Allergies Allergy Verified 02/15/18 22:35 - Home Medications Home Medications: Ambulatory Orders Alprazolam [Xanax] 1 mg PO HS 05/30/17 Gabapentin 300 mg PO TID 05/30/17 Lisinopril/Hydrochlorothiazide [Lisinopril-Hctz 10-12.5 mg Tab] 1 each PO DAILY 05/30/17 Metoprolol Succinate [Toprol Xl] 25 mg PO DAILY 05/30/17 Tramadol HCl 50 mg PO PRN 05/30/17 Omeprazole 20 mg PO DAILY 02/05/18 Oxycodone HCl/Acetaminophen [Oxycodon-Acetaminophen 7.5-325] 1 each PO Q4H PRN 02/05/18 predniSONE [Deltasone -] 10 mg PO DAILY #14 tablet 02/13/18 Family Disease History - Family Disease History Family Disease History: CA: Brother, Sister Review of Systems - Review of Systems Constitutional: reports: Fever Eyes: reports: No Symptoms HENT: reports: No Symptoms Neck: reports: No Symptoms Cardiovascular: reports: No Symptoms. denies: Chest Pain Respiratory: reports: No Symptoms. denies: Cough Gastrointestinal: reports: Diarrhea, Vomiting Genitourinary: reports: No Symptoms Musculoskeletal: reports: No Symptoms Physical Exam Vital Signs: Vital Signs Temperature 98.7 F 02/16/18 08:34 Pulse Rate 106 H 02/16/18 08:34 Respiratory Rate 17 02/16/18 08:34 Blood Pressure 126/61 02/16/18 08:34 O2 Sat by Pulse Oximetry (%) 96 02/16/18 06:06 Constitutional: Yes: Well Nourished, No Distress, Calm Eyes: Yes: Conjunctiva Clear HENT: Yes: Atraumatic, Normocephalic Neck: Yes: Supple Cardiovascular: Yes: Regular Rate and Rhythm Respiratory: Yes: Regular, CTA Bilaterally Gastrointestinal: Yes: Normal Bowel Sounds, Soft. No: Tenderness, Epigastrium, Tenderness, Rebound Musculoskeletal: Yes: WNL Extremities: Yes: WNL Edema: No Psychiatric: Yes: Alert, Oriented Labs: CBC, BMP 02/16/18 08:40 02/16/18 08:40 Microbiology 02/16/18 04:00 Stool Gram Stain - Final 02/16/18 04:00 Stool Clostridium difficile Antigen (VICKI) - Final-positive 02/16/18 04:00 Stool Clostridium difficile Toxin Assay - Final- posiitve Imaging - Results Cat Scan: Report Reviewed, Image Reviewed Problem List - Problems (1) Colitis Code(s): K52.9 - NONINFECTIVE GASTROENTERITIS AND COLITIS, UNSPECIFIED (2) Vomiting Code(s): R11.10 - VOMITING, UNSPECIFIED (3) Metastatic breast cancer Code(s): C50.919 - MALIGNANT NEOPLASM OF UNSP SITE OF UNSPECIFIED FEMALE BREAST (4) Inflammatory arthritis Code(s): M19.90 - UNSPECIFIED OSTEOARTHRITIS, UNSPECIFIED SITE Assessment/Plan CDIFF COLITIS CONTINUE PO VANOCMYCIN AND iv FLAGYL unclear why she is vomiting suggest GI evaluation interesting joint pains have resolved d/w hospitalist will d/c levaquin f/u cultures
--- NOTE | 2018-02-16 16:12 | EKG ---
Test Reason : Blood Pressure : / mmHG Vent. Rate : 100 BPM Atrial Rate : 100 BPM P-R Int : 120 ms QRS Dur : 084 ms QT Int : 364 ms P-R-T Axes : 032 021 039 degrees QTc Int : 469 ms SINUS RHYTHM WITH OCCASIONAL PREMATURE VENTRICULAR COMPLEXES OTHERWISE NORMAL ECG WHEN COMPARED WITH ECG OF 16-FEB-2018 00:41, PREMATURE VENTRICULAR COMPLEXES ARE NOW PRESENT Confirmed by MD MACY, NOAH ([id number]) on 02/16/2018 4:12:13 PM Referred By: Yany PARK Confirmed By:NOAH CAVAZOS MD
--- NOTE | 2018-02-16 16:15 | EKG ---
Test Reason : Blood Pressure : / mmHG Vent. Rate : 107 BPM Atrial Rate : 107 BPM P-R Int : 130 ms QRS Dur : 092 ms QT Int : 342 ms P-R-T Axes : 031 016 040 degrees QTc Int : 456 ms SINUS TACHYCARDIA OTHERWISE NORMAL ECG WHEN COMPARED WITH ECG OF 06-FEB-2018 00:15, VENT. RATE HAS INCREASED BY 38 BPM Confirmed by MD MACY, NOAH ([id number]) on 02/16/2018 4:14:41 PM Referred By: Confirmed By:NOAH CAVAZOS MD
--- NOTE | 2018-02-16 18:30 | PN ---
Teaching Attending Note Name of Resident: Mehrdad Jacob ATTENDING PHYSICIAN STATEMENT I saw and evaluated the patient. I reviewed the resident's note and discussed the case with the resident. I agree with the resident's findings and plan as documented. SUBJECTIVE: Patient seen and examined Presents after recent discharge with fevers, diarrhea which is C. difficile positive , and bilious emesis. Recent discharge from hospital with migratory polyarthritis ( ? paraneoplastic ) treated with steroids with improvement. Current abdominal CT scan with air in distal common bile duct with some dilatation of the intrahepatic ducts. To be seen by GI. Seen by GI and being treated for C. difficile by ID. Due for next dose of faslodex loading on 02/17. May need to delay. OBJECTIVE: ASSESSMENT AND PLAN:
[2018-02-16] MEDS ORDERED: PATIENT'S OWN MEDICATION (NON-FORMULARY) (Oxycodone Hcl/Acetaminophen [Oxycodon-Acetaminop PO PRN (21:14)
[2018-02-16] MEDS ORDERED: traMADol HCL 50 MG TABLET PO PRN (21:15)
[2018-02-16] MEDS ORDERED: ACETAMINOPHEN 325 MG TABLET (FP) PO PRN (21:23)
[2018-02-16] MEDS ORDERED: oxyCODONE HCL 5 MG TABLET PO PRN (21:23)
[2018-02-16] MEDS ORDERED: PATIENT'S OWN MEDICATION (NON-FORMULARY) (Alprazolam [Xanax] 1 MG) PO SCH (22:00)
[2018-02-16] MEDS: GABAPENTIN 100 MG CAPSULE (FP) PO SCH (22:42)
[2018-02-16] MEDS: ALPRAZolam 0.25 MG TABLET PO SCH (22:43)
[2018-02-17] MEDS: VANCOMYCIN 250 MG/5 ML ORAL SOLUTION PO SCH ×4 (00:15→17:46)
[2018-02-17] MEDS ORDERED: PIPERACILLIN/TAZOBACTAM 3.375 GM VIAL IVPB ONE ×3 (00:26→17:40)
[2018-02-17] MEDS ORDERED: DEXTROSE 5%-WATER - 50 ML IVPB ONE ×3 (00:26→17:40)
[2018-02-17] MEDS: PIPERACILLIN/TAZOB 3.375 GM 3.375 GM in DEXTROSE 5%-WATER - 50 ML IVPB SCH ×3 (02:39→17:45)
[2018-02-17 03:23] VITALS: BMI 25.9
[2018-02-17] MEDS: HEPARIN NA (PORCINE) 5,000 UNITS/ML 1ML VIAL SQ SCH ×3 (05:45→22:17)
[2018-02-17] MEDS: GABAPENTIN 100 MG CAPSULE (FP) PO SCH ×3 (05:45→22:17)
[2018-02-17] MEDS: LACTATED RINGERS SOLUTION 1,000 ML/1,000 ML INFUS.BAG IV SCH ×2 (05:46→14:25)
[2018-02-17 07:39] LABS: BASO % 0.8 % (0-2.0); EOS % 1.5 % (0-4.5); HEMATOCRIT 27.6 % (32.4-45.2); HEMOGLOBIN 9.1 GM/dL (10.7-15.3); LYMPH % 16.6 % (8-40); MCH 27.1 pg (25.7-33.7); MCHC 32.9 g/dl (32.0-36.0); MEAN CELL VOLUME 82.3 fl (80-96); MEAN PLT VOLUME 7.5 fl (7.5-11.1); MONO % 7.9 % (3.8-10.2); NEUT % 73.2 % (42.8-82.8); PLATELET COUNT 334 K/MM3 (134-434); RBC 3.35 M/mm3 (3.60-5.2); RDW 13.7 % (11.6-15.6); WHITE BLOOD COUNT 7.6 K/mm3 (4.0-10.0)
[2018-02-17 08:03] LABS: ALBUMIN 2.9 g/dl (3.4-5.0); ALK PHOS 100 U/L (45-117); ANION GAP 10 MMOL/L (8-16); BILIRUBIN,TOTAL 0.6 mg/dL (0.2-1); BLOOD UREA NITROGEN 7 mg/dL (7-18); CALCIUM 7.8 mg/dL (8.5-10.1); CHLORIDE 110 mmol/L (98-107); CO2 27 mmol/L (21-32); CREATININE 0.9 mg/dL (0.55-1.3); GLUCOSE,RANDOM 84 mg/dL (74-106); MAGNESIUM 1.9 mg/dL (1.8-2.4); POTASSIUM 3.9 mmol/L (3.5-5.1); SGOT/AST 18 U/L (15-37); SGPT/ALT 65 U/L (13-61); SODIUM 146 mmol/L (136-145); TOT PROT 6.3 g/dl (6.4-8.2)
[2018-02-17 09:35] LABS: PLATELET ESTIMATE NORMAL
[2018-02-17] MEDS ORDERED: PATIENT'S OWN MEDICATION (NON-FORMULARY) (Lisinopril/Hydrochlorothiazide [Lisinopril-Hctz PO SCH (10:00)
[2018-02-17] MEDS ORDERED: PANTOPRAZOLE 20 MG TABLET (FP) PO SCH (10:00)
[2018-02-17] MEDS: predniSONE 10 MG TABLET (UD) PO SCH (10:38)
[2018-02-17] MEDS: metoPROLOL SUCCINATE 25 MG TAB.SR.24H (FP) PO SCH (10:45)
[2018-02-17] MEDS: HYDROCHLOROTHIAZIDE 12.5 MG CAPSULE (FP) PO SCH (10:45)
[2018-02-17] MEDS: LISINOPRIL 10 MG TABLET (FP) PO SCH (10:45)
--- NOTE | 2018-02-17 11:35 | PN ---
Physical Exam: SUBJECTIVE: Patient seen and examined at the bedside. OBJECTIVE: no longer vomiting, denies abdominal pain, denies shortness of breath consult for GI to be called in by financial underwriter Vital Signs Period Temp Pulse Resp BP Sys/Nuñez Pulse Ox Last 24 Hr 97.5 F-99.2 F 72-105 17-20 106-133/54-70 95-96 GENERAL: The patient is awake, alert, and fully oriented, in no acute distress. HEAD: Normal with no signs of trauma. EYES: PERRL, extraocular movements intact, sclera anicteric, conjunctiva clear. No ptosis. ENT: Ears normal, nares patent, oropharynx clear without exudates, moist mucous membranes. NECK: Trachea midline, full range of motion, supple. LUNGS: Breath sounds equal, clear to auscultation bilaterally, no wheezes, no crackles, no accessory muscle use. HEART: Regular rate and rhythm ABDOMEN: Soft, nontender, nondistended, normoactive bowel sounds EXTREMITIES: 2+ pulses, warm, well-perfused, no edema. NEUROLOGICAL: Normal speech, gait not observed. PSYCH: Normal mood, normal affect. SKIN: Warm, dry, normal turgor, no rashes or lesions noted Laboratory Results - last 24 hr 02/17/18 02/17/18 06:30 06:30 WBC 7.6 RBC 3.35 L Hgb 9.1 L Hct 27.6 L MCV 82.3 MCH 27.1 MCHC 32.9 RDW 13.7 MPV 7.5 Absolute Neuts (auto) 5.6 Neutrophils % 73.2 Lymphocytes % 16.6 D Monocytes % 7.9 Eosinophils % 1.5 D Basophils % 0.8 Nucleated RBC % 0 Platelet Estimate Normal Sodium 146 H Potassium 3.9 Chloride 110 H Carbon Dioxide 27 Anion Gap 10 BUN 7 Creatinine 0.9 Creat Clearance w eGFR > 60 Random Glucose 84 Calcium 7.8 L Magnesium 1.9 Total Bilirubin 0.6 AST 18 ALT 65 H Alkaline Phosphatase 100 Total Protein 6.3 L Albumin 2.9 L Active Medications Generic Name Dose Route Start Last Admin Trade Name Freq PRN Reason Stop Dose Admin Acetaminophen 325 mg 02/16/18 21:23 Tylenol - PO 02/19/18 21:22 Q4H PRN PAIN 7-10 Alprazolam 1 mg 02/16/18 22:00 02/16/18 22:43 Xanax - PO 1 mg HS CARTER Administration Gabapentin 300 mg 02/16/18 22:00 02/17/18 05:45 Neurontin - PO 300 mg TID CARTER Administration Heparin Sodium (Porcine) 5,000 unit 02/16/18 06:00 02/17/18 05:45 Heparin - SQ 5,000 unit TID CARTER Administration Hydrochlorothiazide 12.5 mg 02/17/18 10:00 02/17/18 10:45 Hctz - PO Not Given DAILY CARTER Lactated Ringer's 1,000 ml in 1,000 mls @ 100 mls/hr 02/16/18 04:45 02/17/18 05:46 Lactated Ringers Solution IV Not Given ASDIR CARTER Metronidazole 500 mg in 100 mls @ 100 mls/hr 02/16/18 05:00 02/17/18 11:29 Flagyl 500mg Premixed Ivpb - IVPB 100 mls/hr Q8H-IV CARTER Administration Piperacillin Sod/Tazobactam 50 mls @ 100 mls/hr 02/17/18 02:00 02/17/18 10:38 Sod 3.375 gm/ Dextrose IVPB 100 mls/hr Q8H-IV CARTER Administration Protocol Lisinopril 10 mg 02/17/18 10:00 02/17/18 10:45 Prinivil PO Not Given DAILY [facility] Metoprolol Succinate 25 mg 02/17/18 10:00 02/17/18 10:45 Toprol Xl - PO Not Given DAILY [facility] Ondansetron HCl 4 mg 02/16/18 14:20 02/16/18 14:03 Zofran Injection IVPUSH 4 mg Q8H PRN Administration NAUSEA Oxycodone HCl 7.5 mg 02/16/18 21:23 Roxicodone - PO Q4H PRN PAIN 7-10 Pantoprazole Sodium 20 mg 02/17/18 10:00 02/17/18 10:38 Protonix - PO 20 mg DAILY CARTER Administration Prednisone 10 mg 02/17/18 10:00 02/17/18 10:38 Deltasone - PO 10 mg DAILY CARTER Administration Tramadol HCl 50 mg 02/16/18 21:15 Ultram - PO Q6H PRN PAIN LEVEL 4 - 6 Vancomycin HCl 125 mg 02/16/18 06:00 02/17/18 11:30 Vancomycin Oral Solution PO 125 mg Q6HPO CARTER Administration Imaging: ctap: s/p cholecystectomy with mild dilatation of the central intrahepatic bile duds and likely air within the distal portion of the CBD. There is also a possible adjacent duodenal diverticula measuring apx 2cm. non distention and possible thickening of the cecal wall, proximal and mid transverse colon as well as the sigmoid colon. cannot rule out colitis. correlate clinically. non visualization of the uterus and appendix. no free air or gross enlarged lymph nodes identified. ASSESSMENT/PLAN: Patient is a 67 year old female with a significant past medical history of hypertension, breast cancer with mets to left femur, clavicle, spine and ribs. Patient presents to the ED with complaint of fevers, diarrhea, vomiting, and abdominal pain. --------- sepsis c diff colitis hypertension breast cancer with mets ID: Sepsis: Mets sepsis criteria on admission in the setting of a immunocompromised patient: started on broad spectrum antibiotics (zosyn). ID consulted and following. Patient kept NPO for multiple bouts of vomiting and diarrhea. Hydrated overnight. Patient is + cdiff (toxin and antigen). Recently admitted here 1 week ago and treated with IV antibiotics for left knee cellulitis, inflammation and fevers. On Flagyl iv q 6hr. GI: C. diff colitis. Multiple episodes of vomiting on admission. has now since resolved. Denies nausea or further vomiting. On oral vanco. GI consulted and following. Started on clears. On Prednisone 10mg daily. Card: Hypertension. controlled. continue home meds, toprol, lisinopril, hctz. Chest tightness, troponins negative. chest pain resolved. No ekg changes. QTC: Monitor qtc while on zofran. Heme/Onc: Breast cancer with mets: followed by hematology/oncology. fen LR @ 100cc/hr monitor electrolytes clears prophy heparin tid. protonix full code Visit type - Emergency Visit Emergency Visit: Yes ED Registration Date: 02/17/18 Care time: The patient presented to the Emergency Department on the above date and was hospitalized for further evaluation of their emergent condition. - New Patient This patient is new to me today: No - Critical Care Critical Care patient: No - Discharge Referral Referred to [facility] Med P.C.: No
--- NOTE | 2018-02-17 12:20 | PN ---
Progress Note (short form) - Note Progress Note: vomiting resolved daughter reports midepigastric abdominal pain at home, also resolved 2 BMs overnight one today feels much better Vital Signs Period Temp Pulse Resp BP Sys/Nuñez Pulse Ox Last 24 Hr 97.5 F-99.2 F 72-100 17-20 106-133/54-70 95-96 cor-rrr lungs clear abd soft,nt ext no edema CBC, BMP 02/17/18 06:30 02/17/18 06:30 Microbiology 02/16/18 04:00 Stool Gram Stain - Final 02/16/18 04:00 Stool Salmonella/Shigella Culture - Preliminary NO ENTERIC PATHOGENS, 24 HOURS, ON PRIMARY PLATES 02/16/18 04:00 Stool Yersinia Culture - Preliminary NO ENTERIC PATHOGENS, 24 HOURS, ON PRIMARY PLATES 02/16/18 04:00 Stool Vibrio Culture - Final NO GROWTH OF VIBRIO SPECIES OBTAINED 02/16/18 04:00 Stool Escherichia coli 0157 Culture - Final NO GROWTH OF E COLI 0157 OBTAINED 02/16/18 03:10 Urine - Urine Clean Catch Urine Culture - Final NO GROWTH OBTAINED 02/16/18 00:15 Blood - Peripheral Venous Blood Culture - Preliminary NO GROWTH OBTAINED AFTER 24 HOURS, INCUBATION TO CONTINUE FOR 4 DAYS. 02/16/18 00:15 Blood - Peripheral Venous Blood Culture - Preliminary NO GROWTH OBTAINED AFTER 24 HOURS, INCUBATION TO CONTINUE FOR 4 DAYS. 02/16/18 04:00 Stool Clostridium difficile Antigen (VICKI) - Final 02/16/18 04:00 Stool Clostridium difficile Toxin Assay - Final a/p cdiff colitis continue po vancomycin and iv flagyl today, hopefully d/c flagyl in am vomiting/abdominal pain- resolved- air in CBD- awaiting GI eval - on zosyn, ?d/ c if okay with GI metastatic breast cancer polyarthritis- paraneoplastic- has resolved with low dose prednisone Problem List - Problems (1) Colitis Code(s): K52.9 - NONINFECTIVE GASTROENTERITIS AND COLITIS, UNSPECIFIED (2) Vomiting Code(s): R11.10 - VOMITING, UNSPECIFIED (3) Metastatic breast cancer Code(s): C50.919 - MALIGNANT NEOPLASM OF UNSP SITE OF UNSPECIFIED FEMALE BREAST (4) Inflammatory arthritis Code(s): M19.90 - UNSPECIFIED OSTEOARTHRITIS, UNSPECIFIED SITE
--- NOTE | 2018-02-17 14:04 | PN ---
Progress Note (short form) - Note Progress Note: Patient seen and examined at bedside no events overnight C. Diff antigen and toxin positive 1 BM this morning which was loose but less loose and has not gone since frequency has significantly decreased as well patient feels much better today reports pain at the medial part of the left foot Vital Signs Temp 98.5 F 02/17/18 10:00 Pulse 73 02/17/18 10:00 Resp 20 02/17/18 10:00 BP 118/58 L 02/17/18 10:00 Pulse Ox 95 02/17/18 04:00 Intake & Output 02/16/18 02/17/18 02/17/18 23:59 11:59 23:59 Intake Total 1125 150 Output Total 300 Balance 825 150 Weight 68.629 kg Intake: IV 1100 LACTATED RINGERS SOLUTION 1100 1,000 ml In 1,000 ml @ 100 mls/hr IV ASDIR CARTER Rx#:[id number] IVPB 150 Oral 25 Output: Urine 300 Void 300 Other: Voiding Method Toilet Toilet # Unmeasured Voids Void 2 2 Bowel Movement Yes No # Bowel Movements 2 Height 5 ft 4 in Body Mass Index (BMI) 25.9 Weight Measurement Method Built in [facility] PE: NAD lying in bed RRR S1 S2 CTAB Soft non tender non distended normoactive bowel sounds no lower extremity edema. 02/17/18 02/17/18 06:30 06:30 WBC 7.6 RBC 3.35 L Hgb 9.1 L Hct 27.6 L MCV 82.3 MCHC 32.9 RDW 13.7 Plt Count 334 Neutrophils % 73.2 Lymphocytes % 16.6 D Monocytes % 7.9 Eosinophils % 1.5 D Basophils % 0.8 Sodium 146 H Potassium 3.9 Chloride 110 H Carbon Dioxide 27 Anion Gap 10 BUN 7 Creatinine 0.9 02/16/18 04:00 Gram Stain - Final Stool Salmonella/Shigella Culture - Preliminary NO ENTERIC PATHOGENS, 24 HOURS, ON PRIMARY PLATES Campylobacter Culture - Pending Yersinia Culture - Preliminary NO ENTERIC PATHOGENS, 24 HOURS, ON PRIMARY PLATES Vibrio Culture - Final NO GROWTH OF VIBRIO SPECIES OBTAINED Escherichia coli 0157 Culture - Final NO GROWTH OF E COLI 0157 OBTAINED 02/16/18 03:10 Urine Culture - Final Urine - Urine Clean Catch NO GROWTH OBTAINED 02/16/18 00:15 Blood Culture - Preliminary Blood - Peripheral Venous NO GROWTH OBTAINED AFTER 24 HOURS, INCUBATION TO CONTINUE FOR 4 DAYS. 02/16/18 00:15 Blood Culture - Preliminary Blood - Peripheral Venous NO GROWTH OBTAINED AFTER 24 HOURS, INCUBATION TO CONTINUE FOR 4 DAYS. 02/16/18 04:00 Clostridium difficile Antigen (VICKI) - Final Stool Clostridium difficile Toxin Assay - Final 67F PMH of HTN, GERD, metastatic breast cancer with metastasis to left femur, clavicle, spine, ribs presented to the ED fever vomiting and diarrhea. 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 difficile colitis continue pain control physical therapy f/u ID consult-appreciated continue flagyl and PO Vancomycin continue prednisone 10mg po daily for now f/u C diff-positive for antigen and toxin f/u blood cultures-NGTD Will follow
--- NOTE | 2018-02-17 17:51 | PN ---
Teaching Attending Note Name of Resident: Mehrdad Jacob ATTENDING PHYSICIAN STATEMENT I saw and evaluated the patient. I reviewed the resident's note and discussed the case with the resident. I agree with the resident's findings and plan as documented. SUBJECTIVE: Patient seen and examined Agree with above note . No further vomiting and less diarrhea Continuing on antibiotics per ID. For GI follow up. OBJECTIVE: ASSESSMENT AND PLAN:
--- NOTE | 2018-02-17 17:59 | CONS ---
DATE OF CONSULTATION: DATE OF DICTATION: 02/17/2018 HISTORY: The patient is a 68-year-old female with past medical history of stage 4 breast cancer metastasis to the clavicles, ribs, thoracic vertebrae also with reflux anxiety who was recently hospitalized and discharged 2 days prior to this admission at which time she was given antibiotics for a lower extremity infection as per the history. She now complains of fever up to 101.2, which began a day prior to admission and also with multiple loose bowel movements and nausea and vomiting. She describes the vomitus bilious in nature. She also admits to some epigastric abdominal pain after vomiting. She denies any melena, hematochezia, or weight loss. She does suffer from chronic dyspeptic symptoms. Her last endoscopy and colonoscopy approximately 2 years ago she reports to be negative. She has traveled outside the country. She resides in [place] over the summer and returned on January 19. PAST MEDICAL HISTORY: As listed in the HPI. PAST SURGICAL HISTORY: As listed in the HPI with the addition of bilateral tubal ligation. ALLERGIES: No known drug allergies. SOCIAL HISTORY: Does not smoke, drink, or use drugs. Lives at home with her daughter. HOME MEDICATIONS: Reviewed include Xanax, gabapentin, lisinopril, hydrochlorothiazide, metoprolol succinate, Tramadol, omeprazole, Percocet, and prednisone therapy. PHYSICAL EXAMINATION: Vital Signs: Temperature 98, pulse 73, respiratory rate 12, blood pressure 118/ 58. General: In no acute distress. HEENT: Anicteric sclerae. Cardiovascular: S1, S2. Regular rate and rhythm. Lungs: Bilaterally clear to auscultation. Abdomen: Soft and nontender. Extremities: No edema. LABORATORIES: White blood cell count on admission was 12.5, currently 7.6, hemoglobin 9.1, hematocrit 27, MCV 82, platelet count 334, INR 1. Sodium 146, potassium 3.9, BUN 7, creatinine 0.9, glucose 84, calcium 7.8, total bilirubin 0.6, AST 18, ALT 65, alkaline phosphatase 100. Last abdominal imaging on the 16 of February shows [address] scan of the abdomen and pelvis with contrast, which revealed cholecystectomy, mild dilation of the central intrahepatic bile duct, air within the distal portion of the common bile duct, possible adjacent duodenal diverticulum measuring 2 cm, nondistended proximal thickening of the thecal wall, proximal, mid, and transverse colon as well as the sigmoid. Colitis could not be excluded. Also with sclerotic bone metastasis 8th compression of L2 superior endplate versus a prominent Schmorl's node without compromise of the spinal canal. Also metastasis on the 9th rib. Microbiology, Gram stain is pending final results. Preliminary is negative. Stool for Clostridium difficile is positive. IMPRESSION: Clostridium difficile in the setting of recent antibiotics and hospitalization. There is no sign of toxic megacolon. RECOMMENDATION: Continue IV fluids. Continue Flagyl 500 mg IV q.6 hours. Vancomycin was initiated 125 mg p.o. q.6. Follow up final cultures. Can advance her to a clear liquid diet, and if her abdominal exam remains benign, she can be advanced slowly to a low-residue lactose-free diet. Oncology follow up for history of breast cancer. This patient will be followed by the GI service. DO SAVAGE SANDHU/[id number] MTDD
[2018-02-17] MEDS ORDERED: LACTATED RINGERS SOLUTION 1,000 ML/1,000 ML INFUS.BAG IV SCH (18:26)
[2018-02-17] MEDS: ALPRAZolam 0.25 MG TABLET PO SCH (22:17)
[2018-02-18] MEDS: VANCOMYCIN 250 MG/5 ML ORAL SOLUTION PO SCH ×4 (00:11→17:09)
[2018-02-18] MEDS: GABAPENTIN 100 MG CAPSULE (FP) PO SCH ×3 (06:49→22:28)
[2018-02-18] MEDS: HEPARIN NA (PORCINE) 5,000 UNITS/ML 1ML VIAL SQ SCH ×3 (06:49→22:29)
--- NOTE | 2018-02-18 09:40 | PN ---
Progress Note (short form) - Note Progress Note: Patient seen and examined at bedside no events overnight C. Diff antigen and toxin positive Yesterday patient had 1 BM in the AM and 2 loose BM after dinner This morning she has had 2 loose BM so far no nausea or vomiting for 2 days now and clear liquid tolerating diet patient feels good today reports pain at the medial part of the left foot and discoloration Vital Signs Temperature 98.2 F 02/18/18 05:55 Pulse Rate 72 02/18/18 05:55 Respiratory Rate 18 02/18/18 05:55 Blood Pressure 116/65 02/18/18 05:55 O2 Sat by Pulse Oximetry (%) 98 02/17/18 21:00 PE: NAD lying in bed RRR S1 S2 CTAB Soft non tender non distended normoactive bowel sounds no lower extremity edema. 02/17/18 06:30 Plt Count 334 02/16/18 00:15 Blood Culture - Preliminary Blood - Peripheral Venous NO GROWTH OBTAINED AFTER 48 HOURS, INCUBATION TO CONTINUE FOR 3 DAYS. 02/16/18 00:15 Blood Culture - Preliminary Blood - Peripheral Venous NO GROWTH OBTAINED AFTER 48 HOURS, INCUBATION TO CONTINUE FOR 3 DAYS. 02/16/18 04:00 Gram Stain - Final Stool Salmonella/Shigella Culture - Preliminary NO ENTERIC PATHOGENS, 24 HOURS, ON PRIMARY PLATES Campylobacter Culture - Pending Yersinia Culture - Preliminary NO ENTERIC PATHOGENS, 24 HOURS, ON PRIMARY PLATES Vibrio Culture - Final NO GROWTH OF VIBRIO SPECIES OBTAINED Escherichia coli 0157 Culture - Final NO GROWTH OF E COLI 0157 OBTAINED 02/16/18 03:10 Urine Culture - Final Urine - Urine Clean Catch NO GROWTH OBTAINED 02/16/18 04:00 Clostridium difficile Antigen (VICKI) - Final Stool Clostridium difficile Toxin Assay - Final 67F PMH of HTN, GERD, metastatic breast cancer with metastasis to left femur, clavicle, spine, ribs presented to the ED fever vomiting and diarrhea. 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 difficile colitis continue pain control physical therapy ID consult-appreciated continue IV flagyl and PO Vancomycin continue prednisone 10mg po daily for now C diff-positive for antigen and toxin blood cultures-NGTD Stool cultures negative Will follow
[2018-02-18] MEDS: predniSONE 10 MG TABLET (UD) PO SCH (10:00)
[2018-02-18] MEDS ORDERED: PT OWN MED DRAWER 7, Y5N ONE ×2 (11:05→14:02)
[2018-02-18] MEDS: metoPROLOL SUCCINATE 25 MG TAB.SR.24H (FP) PO SCH (11:13)
[2018-02-18] MEDS: HYDROCHLOROTHIAZIDE 12.5 MG CAPSULE (FP) PO SCH (11:13)
[2018-02-18] MEDS: LISINOPRIL 10 MG TABLET (FP) PO SCH (11:13)
--- NOTE | 2018-02-18 14:27 | PN ---
Physical Exam: SUBJECTIVE: Patient seen and examined. She is sitting up in the chair, eating lunch. Some swelling of left foot, but no pain with ambulation. OBJECTIVE: d/c ivf, as patient is tolerating diet, and no longer vomiting. she is showing signs of fluid overload a/e/b mild hand edema, and mild edema on left foot. Vital Signs Period Temp Pulse Resp BP Sys/Nuñez Pulse Ox Last 24 Hr 98.2 F-98.5 F 72-97 18-20 116-141/65-87 98 GENERAL: The patient is awake, alert, and fully oriented, in no acute distress. HEAD: Normal with no signs of trauma. EYES: PERRL, extraocular movements intact, sclera anicteric, conjunctiva clear. No ptosis. ENT: Ears normal, nares patent, oropharynx clear without exudates, moist mucous membranes. NECK: Trachea midline, full range of motion, supple. LUNGS: Breath sounds equal, clear to auscultation bilaterally, no wheezes, no crackles, no accessory muscle use. HEART: Regular rate and rhythm ABDOMEN: Soft, nontender, nondistended, normoactive bowel sounds EXTREMITIES: 2+ pulses, warm, well-perfused, no edema. NEUROLOGICAL: Normal speech, gait not observed. PSYCH: Normal mood, normal affect. SKIN: Warm, dry, normal turgor, no rashes or lesions noted Active Medications Generic Name Dose Route Start Last Admin Trade Name Freq PRN Reason Stop Dose Admin Acetaminophen 325 mg 02/16/18 21:23 Tylenol - PO 02/19/18 21:22 Q4H PRN PAIN 7-10 Alprazolam 1 mg 02/16/18 22:00 02/17/18 22:17 Xanax - PO 1 mg HS CARTER Administration Gabapentin 300 mg 02/16/18 22:00 02/18/18 14:12 Neurontin - PO 300 mg TID CARTER Administration Heparin Sodium (Porcine) 5,000 unit 02/16/18 06:00 02/18/18 14:12 Heparin - SQ 5,000 unit TID CARTER Administration Hydrochlorothiazide 12.5 mg 02/17/18 10:00 02/18/18 11:13 Hctz - PO 12.5 mg DAILY CARTER Administration Metronidazole 500 mg in 100 mls @ 100 mls/hr 02/16/18 05:00 02/18/18 11:13 Flagyl 500mg Premixed Ivpb - IVPB 100 mls/hr Q8H-IV CARTER Administration Lisinopril 10 mg 02/17/18 10:00 02/18/18 11:13 Prinivil PO 10 mg DAILY CARTER Administration Metoprolol Succinate 25 mg 02/17/18 10:00 02/18/18 11:13 Toprol Xl - PO 25 mg DAILY CARTER Administration Ondansetron HCl 4 mg 02/16/18 14:20 02/16/18 14:03 Zofran Injection IVPUSH 4 mg Q8H PRN Administration NAUSEA Oxycodone HCl 7.5 mg 02/16/18 21:23 Roxicodone - PO Q4H PRN PAIN 7-10 Prednisone 10 mg 02/17/18 10:00 02/17/18 10:38 Deltasone - PO 10 mg DAILY CARTER Administration Tramadol HCl 50 mg 02/16/18 21:15 Ultram - PO Q6H PRN PAIN LEVEL 4 - 6 Vancomycin HCl 125 mg 02/16/18 06:00 02/18/18 13:00 Vancomycin Oral Solution PO 125 mg Q6HPO CARTER Administration Imaging: ctap: s/p cholecystectomy with mild dilatation of the central intrahepatic bile duds and likely air within the distal portion of the CBD. There is also a possible adjacent duodenal diverticula measuring apx 2cm. non distention and possible thickening of the cecal wall, proximal and mid transverse colon as well as the sigmoid colon. cannot rule out colitis. correlate clinically. non visualization of the uterus and appendix. no free air or gross enlarged lymph nodes identified. ASSESSMENT/PLAN: Patient is a 67 year old female with a significant past medical history of hypertension, breast cancer with mets to left femur, clavicle, spine and ribs. Patient presents to the ED with complaint of fevers, diarrhea, vomiting, and abdominal pain. --------- sepsis c diff colitis hypertension breast cancer with mets ID: Sepsis. resolved. Mets sepsis criteria on admission in the setting of a immunocompromised patient : Received Zosyn on admission, but discontinued 02/16 as symptoms likely secondary to c diff colitis. Patient recently hospitalized here and received IV antibiotics for left knee swelling and fevers at home. ID consulted and following. GI: C. diff colitis. (toxin and antigen). Multiple episodes of vomiting on admission. has now since resolved and her diet has been advanced from clears to solids. Denies nausea or further vomiting, but had 2 episodes of loose stools overnight. On oral vanco for c diff, and Flagyl IV. On Prednisone 10mg daily. GI consulted and following. Card: Hypertension. controlled. continue home meds, toprol, lisinopril, hctz. Chest tightness, troponins negative. chest pain resolved. No ekg changes. QTC: Monitor qtc while on zofran. Heme/Onc: Breast cancer with mets: followed by hematology/oncology. fen tolerate PO monitor electrolytes clears prophy heparin tid. protonix full code Visit type - Emergency Visit Emergency Visit: Yes ED Registration Date: 02/17/18 Care time: The patient presented to the Emergency Department on the above date and was hospitalized for further evaluation of their emergent condition. - New Patient This patient is new to me today: No - Critical Care Critical Care patient: No - Discharge Referral Referred to [facility] Med P.C.: No
--- NOTE | 2018-02-18 15:26 | PN ---
Progress Note (short form) - Note Progress Note: 2 loose bms this am, none after lunch Vital Signs Period Temp Pulse Resp BP Sys/Nuñez Pulse Ox Last 24 Hr 98.2 F-98.6 F 72-97 18-20 116-141/65-87 98 cor-rrr lungs clear abd soft,nt ext trace edema left ankle CBC, BMP 02/17/18 06:30 02/17/18 06:30 Microbiology 02/16/18 04:00 Stool Gram Stain - Final 02/16/18 04:00 Stool Salmonella/Shigella Culture - Final NO GROWTH OF SALMONELLA OR SHIGELLA SPECIES OBTAINED 02/16/18 04:00 Stool Campylobacter Culture - Final NO GROWTH OF CAMPYLOBACTER SPECIES OBTAINED 02/16/18 04:00 Stool Yersinia Culture - Final NO GROWTH OF YERSINIA SPECIES OBTAINED 02/16/18 04:00 Stool Vibrio Culture - Final NO GROWTH OF VIBRIO SPECIES OBTAINED 02/16/18 04:00 Stool Escherichia coli 0157 Culture - Final NO GROWTH OF E COLI 0157 OBTAINED 02/16/18 00:15 Blood - Peripheral Venous Blood Culture - Preliminary NO GROWTH OBTAINED AFTER 48 HOURS, INCUBATION TO CONTINUE FOR 3 DAYS. 02/16/18 00:15 Blood - Peripheral Venous Blood Culture - Preliminary NO GROWTH OBTAINED AFTER 48 HOURS, INCUBATION TO CONTINUE FOR 3 DAYS. 02/16/18 03:10 Urine - Urine Clean Catch Urine Culture - Final NO GROWTH OBTAINED 02/16/18 04:00 Stool Clostridium difficile Antigen (VICKI) - Final 02/16/18 04:00 Stool Clostridium difficile Toxin Assay - Final Current Medications Acetaminophen (Tylenol -) 325 mg PO Q4H PRN PRN Reason: PAIN 7-10 Stop: 02/19/18 21:22 Alprazolam (Xanax -) 1 mg PO HS [facility] Last Admin: 02/17/18 22:17 Dose: 1 mg Gabapentin (Neurontin -) 300 mg PO TID [facility] Last Admin: 02/18/18 14:12 Dose: 300 mg Heparin Sodium (Porcine) (Heparin -) 5,000 unit SQ TID [facility] Last Admin: 02/18/18 14:12 Dose: 5,000 unit Hydrochlorothiazide (Hctz -) 12.5 mg PO DAILY [facility] Last Admin: 02/18/18 11:13 Dose: 12.5 mg Metronidazole (Flagyl 500mg Premixed Ivpb -) 500 mg in 100 mls @ 100 mls/hr IVPB Q8H-IV [facility] Last Admin: 02/18/18 11:13 Dose: 100 mls/hr Lisinopril (Prinivil) 10 mg PO DAILY [facility] Last Admin: 02/18/18 11:13 Dose: 10 mg Metoprolol Succinate (Toprol Xl -) 25 mg PO DAILY [facility] Last Admin: 02/18/18 11:13 Dose: 25 mg Ondansetron HCl (Zofran Injection) 4 mg IVPUSH Q8H PRN PRN Reason: NAUSEA Last Admin: 02/16/18 14:03 Dose: 4 mg Oxycodone HCl (Roxicodone -) 7.5 mg PO Q4H PRN PRN Reason: PAIN 7-10 Prednisone (Deltasone -) 10 mg PO DAILY [facility] Last Admin: 02/17/18 10:38 Dose: 10 mg Tramadol HCl (Ultram -) 50 mg PO Q6H PRN PRN Reason: PAIN LEVEL 4 - 6 Vancomycin HCl (Vancomycin Oral Solution) 125 mg PO Q6HPO [facility] Last Admin: 02/18/18 13:00 Dose: 125 mg a/p cdiff colitis continue po vancomycin d/c iv flagyl would complete 14 days of po vancomycin add probiotics for next one month risk of recurrence d/w family metastatic breast cancer polyarthritis- paraneoplastic- has resolved with low dose prednisone please call back if needed Problem List - Problems (1) Colitis Code(s): K52.9 - NONINFECTIVE GASTROENTERITIS AND COLITIS, UNSPECIFIED (2) Vomiting Code(s): R11.10 - VOMITING, UNSPECIFIED (3) Metastatic breast cancer Code(s): C50.919 - MALIGNANT NEOPLASM OF UNSP SITE OF UNSPECIFIED FEMALE BREAST (4) Inflammatory arthritis Code(s): M19.90 - UNSPECIFIED OSTEOARTHRITIS, UNSPECIFIED SITE
[2018-02-18] MEDS: ALPRAZolam 0.25 MG TABLET PO SCH (22:28)
[2018-02-19] MEDS ORDERED: FAMOTIDINE 20 MG/50 ML IVPB 20 MG/50 ML MG IVPB ONE (00:07)
[2018-02-19] MEDS ORDERED: PT OWN MED DRAWER 7, Y5N ONE ×2 (00:27→16:52)
[2018-02-19] MEDS: VANCOMYCIN 250 MG/5 ML ORAL SOLUTION PO SCH ×5 (00:30→23:29)
[2018-02-19] MEDS: HEPARIN NA (PORCINE) 5,000 UNITS/ML 1ML VIAL SQ SCH ×3 (06:23→21:23)
[2018-02-19] MEDS: GABAPENTIN 100 MG CAPSULE (FP) PO SCH ×3 (06:23→21:22)
[2018-02-19 08:59] LABS: BASO % 1.2 % (0-2.0); EOS % 2.7 % (0-4.5); HEMATOCRIT 29.5 % (32.4-45.2); HEMOGLOBIN 9.7 GM/dL (10.7-15.3); LYMPH % 24.7 % (8-40); MCHC 32.8 g/dl (32.0-36.0); MEAN CELL VOLUME 82.2 fl (80-96); MEAN PLT VOLUME 7.4 fl (7.5-11.1); MONO % 9.4 % (3.8-10.2); PLATELET COUNT 445 K/MM3 (134-434); RBC 3.59 M/mm3 (3.60-5.2); RDW 14.2 % (11.6-15.6)
[2018-02-19 09:36] LABS: ALBUMIN 3.1 g/dl (3.4-5.0); ALK PHOS 92 U/L (45-117); ANION GAP 8 MMOL/L (8-16); BILIRUBIN,TOTAL 0.3 mg/dL (0.2-1); BLOOD UREA NITROGEN 10 mg/dL (7-18); CALCIUM 8.4 mg/dL (8.5-10.1); CHLORIDE 105 mmol/L (98-107); CO2 28 mmol/L (21-32); CREATININE 0.9 mg/dL (0.55-1.3); GLUCOSE,RANDOM 93 mg/dL (74-106); MAGNESIUM 2.2 mg/dL (1.8-2.4); POTASSIUM 3.8 mmol/L (3.5-5.1); SGOT/AST 28 U/L (15-37); SGPT/ALT 51 U/L (13-61); SODIUM 141 mmol/L (136-145); TOT PROT 6.4 g/dl (6.4-8.2)
[2018-02-19] MEDS: metoPROLOL SUCCINATE 25 MG TAB.SR.24H (FP) PO SCH (11:00)
[2018-02-19] MEDS: HYDROCHLOROTHIAZIDE 12.5 MG CAPSULE (FP) PO SCH (11:00)
[2018-02-19] MEDS: LACTOBACILLUS ACIDOPHILUS 1 TABLET PO SCH (11:00)
[2018-02-19] MEDS: LISINOPRIL 10 MG TABLET (FP) PO SCH (11:00)
[2018-02-19] MEDS: predniSONE 10 MG TABLET (UD) PO SCH (11:00)
--- NOTE | 2018-02-19 12:07 | PN ---
GI Progress Note Subjective: Dyspeptic symptoms after dinner last night, relieved by famotidine More formed BM's today No abdominal pain - Objective Vital Signs: Vital Signs Temperature 98.5 F 02/19/18 05:54 Pulse Rate 75 02/19/18 05:54 Respiratory Rate 18 02/19/18 05:54 Blood Pressure 122/70 02/19/18 05:54 O2 Sat by Pulse Oximetry (%) 98 02/18/18 21:00 Constitutional: Calm Eyes: No: Sclera Icterus Cardiovascular: Yes: Regular Rate and Rhythm Respiratory: Yes: CTA Bilaterally Gastrointestinal Inspection: No: Distention ...Auscultate: Yes: Normoactive Bowel Sounds ...Palpate: No: Hepatomegaly, Splenomegaly, Tenderness ...Percussion: No: Tympanitic Edema: No (No LE edema) Neurological: Yes: Alert Labs: CBC, BMP 02/19/18 07:30 02/19/18 07:30 INR, PTT INR 1.08 (0.83-1.09) 02/16/18 00:15 Problem List - Problems (1) Clostridium difficile colitis Assessment/Plan: Clinically improving Continue vancomycin PO 125mg PO q6 hours for 14 days Agree with ID recommendations Famotidine 20mg PO BID prn Avoid PPI Code(s): A04.72 - ENTEROCOLITIS D/T CLOSTRIDIUM DIFFICILE, NOT SPCF RECUR
--- NOTE | 2018-02-19 14:11 | PN ---
Physical Exam: SUBJECTIVE: Patient seen and examined at the bedside. Feels well. c/o of left inner pain/edema/tenderness. OBJECTIVE: discussed left foot pain/edema/pain with her oncologist Dr. Galvan. Consult Dr. Aquino had 4 BMs today, loose. patient approved for vancomycin capsules #56 with a $38.50 co pay. Vital Signs Period Temp Pulse Resp BP Sys/Nuñez Pulse Ox Last 24 Hr 98.5 F-98.8 F 68-75 18-20 122-136/65-71 98-99 GENERAL: The patient is awake, alert, and fully oriented, in no acute distress. HEAD: Normal with no signs of trauma. EYES: PERRL, extraocular movements intact, sclera anicteric, conjunctiva clear. No ptosis. ENT: Ears normal, nares patent, oropharynx clear without exudates, moist mucous membranes. NECK: Trachea midline, full range of motion, supple. LUNGS: Breath sounds equal, clear to auscultation bilaterally, no wheezes, no crackles, no accessory muscle use. HEART: Regular rate and rhythm ABDOMEN: Soft, nontender, nondistended, normoactive bowel sounds EXTREMITIES: left inner foot pain/edema. NEUROLOGICAL: Normal speech, gait not observed. PSYCH: Normal mood, normal affect. SKIN: Warm, dry, normal turgor, no rashes or lesions noted Laboratory Results - last 24 hr 02/19/18 02/19/18 07:30 07:30 WBC 5.0 RBC 3.59 L Hgb 9.7 L Hct 29.5 L MCV 82.2 MCH 27.0 MCHC 32.8 RDW 14.2 Plt Count 445 H D MPV 7.4 L Absolute Neuts (auto) 3.1 Neutrophils % 62.0 Lymphocytes % 24.7 D Monocytes % 9.4 Eosinophils % 2.7 Basophils % 1.2 Nucleated RBC % 0 Sodium 141 Potassium 3.8 Chloride 105 Carbon Dioxide 28 Anion Gap 8 BUN 10 Creatinine 0.9 Creat Clearance w eGFR > 60 Random Glucose 93 Calcium 8.4 L Magnesium 2.2 Total Bilirubin 0.3 AST 28 ALT 51 Alkaline Phosphatase 92 Total Protein 6.4 Albumin 3.1 L Active Medications Generic Name Dose Route Start Last Admin Trade Name Freq PRN Reason Stop Dose Admin Acetaminophen 325 mg 02/16/18 21:23 Tylenol - PO 02/19/18 21:22 Q4H PRN PAIN 7-10 Alprazolam 1 mg 02/16/18 22:00 02/18/18 22:28 Xanax - PO 1 mg HS CARTER Administration Gabapentin 300 mg 02/16/18 22:00 02/19/18 06:23 Neurontin - PO 300 mg TID CARTER Administration Heparin Sodium (Porcine) 5,000 unit 02/16/18 06:00 02/19/18 06:23 Heparin - SQ 5,000 unit TID [facility]TER Administration Hydrochlorothiazide 12.5 mg 02/17/18 10:00 02/19/18 11:00 Hctz - PO 12.5 mg DAILY [facility] Administration Lactobacillus Acidophilus 1 tab 02/19/18 10:00 02/19/18 11:00 Bacid - PO 1 tab DAILY [facility] Administration Lisinopril 10 mg 02/17/18 10:00 02/19/18 11:00 Prinivil PO 10 mg DAILY [facility] Administration Metoprolol Succinate 25 mg 02/17/18 10:00 02/19/18 11:00 Toprol Xl - PO 25 mg DAILY [facility] Administration Ondansetron HCl 4 mg 02/16/18 14:20 02/16/18 14:03 Zofran Injection IVPUSH 4 mg Q8H PRN Administration NAUSEA Oxycodone HCl 7.5 mg 02/16/18 21:23 Roxicodone - PO Q4H PRN PAIN 7-10 Prednisone 10 mg 02/17/18 10:00 02/19/18 11:00 Deltasone - PO 10 mg DAILY [facility] Administration Tramadol HCl 50 mg 02/16/18 21:15 Ultram - PO Q6H PRN PAIN LEVEL 4 - 6 Vancomycin HCl 125 mg 02/16/18 06:00 02/19/18 12:51 Vancomycin Oral Solution PO 125 mg Q6HPO [facility] Administration ASSESSMENT/PLAN: Imaging: ctap: s/p cholecystectomy with mild dilatation of the central intrahepatic bile duds and likely air within the distal portion of the CBD. There is also a possible adjacent duodenal diverticula measuring apx 2cm. non distention and possible thickening of the cecal wall, proximal and mid transverse colon as well as the sigmoid colon. cannot rule out colitis. correlate clinically. non visualization of the uterus and appendix. no free air or gross enlarged lymph nodes identified. ASSESSMENT/PLAN: Patient is a 67 year old female with a significant past medical history of hypertension, breast cancer with mets to left femur, clavicle, spine and ribs. Patient presents to the ED with complaint of fevers, diarrhea, vomiting, and abdominal pain. --------- sepsis c diff colitis hypertension breast cancer with mets Inflammatory arthritis ID: Sepsis. resolved. Mets sepsis criteria on admission in the setting of a immunocompromised patient : Received Zosyn on admission, but discontinued 02/16 as symptoms likely secondary to c diff colitis. Patient recently hospitalized here and received IV antibiotics for left knee swelling and fevers at home. ID consulted and following. GI: C. diff colitis. (toxin and antigen). improving. Multiple episodes of vomiting on admission. has now since resolved and her diet has been advanced from clears to solids. Denies nausea or further vomiting, but had 4 episodes of loose stools today. overall its an improvement. Rheumatology: Inflammatory arthritis, left foot. Seen by rhuematology on last admission and put on low dose steriods. Left inner foot remains tender, painful. Will re consult rheumatology. Card: Hypertension. controlled. continue home meds, toprol, lisinopril, hctz. Chest tightness, troponins negative. chest pain resolved. No ekg changes. QTC: Monitor qtc while on zofran. Heme/Onc: Breast cancer with mets: followed by hematology/oncology. fen tolerate PO monitor electrolytes clears prophy heparin tid. protonix full code Visit type - Emergency Visit Emergency Visit: Yes ED Registration Date: 02/17/18 Care time: The patient presented to the Emergency Department on the above date and was hospitalized for further evaluation of their emergent condition. - New Patient This patient is new to me today: No - Critical Care Critical Care patient: No - Discharge Referral Referred to [facility] No
[2018-02-19 14:37] LABS: ANISOCYTOSIS 2+; MACROCYTOSIS 1+; OVALOCYTE 2+; PLATELET ESTIMATE NORMAL
--- NOTE | 2018-02-19 17:31 | PN ---
Progress Note (short form) - Note Progress Note: Patient seen and examined at bedside no events overnight C. Diff antigen and toxin positive Patient had 3 BM today and it was the consistency of pudding which has gotten better from watery diarrhea other than the left foot pain and swelling she feels good Vital Signs Temperature 98.3 F 02/19/18 15:25 Pulse Rate 70 02/19/18 15:25 Respiratory Rate 18 02/19/18 15:25 Blood Pressure 148/80 02/19/18 15:25 O2 Sat by Pulse Oximetry (%) 99 02/19/18 09:00 PE: NAD lying in bed RRR S1 S2 CTAB Soft non tender non distended normoactive bowel sounds no lower extremity edema. Left foot with no more discoloration at the medial portion of it now with edema. Tender to palpation 02/19/18 02/19/18 07:30 07:30 WBC 5.0 RBC 3.59 L Hgb 9.7 L Hct 29.5 L MCV 82.2 MCHC 32.8 RDW 14.2 Plt Count 445 H D Neutrophils % 62.0 Lymphocytes % 24.7 D Monocytes % 9.4 Eosinophils % 2.7 Basophils % 1.2 Sodium 141 Potassium 3.8 Chloride 105 Carbon Dioxide 28 Anion Gap 8 BUN 10 Creatinine 0.9 02/16/18 00:15 Blood Culture - Preliminary Blood - Peripheral Venous NO GROWTH OBTAINED AFTER 72 HOURS, INCUBATION TO CONTINUE FOR 2 DAYS. 02/16/18 00:15 Blood Culture - Preliminary Blood - Peripheral Venous NO GROWTH OBTAINED AFTER 72 HOURS, INCUBATION TO CONTINUE FOR 2 DAYS. 02/16/18 04:00 Gram Stain - Final Stool Salmonella/Shigella Culture - Final NO GROWTH OF SALMONELLA OR SHIGELLA SPECIES OBTAINED Campylobacter Culture - Final NO GROWTH OF CAMPYLOBACTER SPECIES OBTAINED Yersinia Culture - Final NO GROWTH OF YERSINIA SPECIES OBTAINED Vibrio Culture - Final NO GROWTH OF VIBRIO SPECIES OBTAINED Escherichia coli 0157 Culture - Final NO GROWTH OF E COLI 0157 OBTAINED 02/16/18 03:10 Urine Culture - Final Urine - Urine Clean Catch NO GROWTH OBTAINED 02/16/18 04:00 Clostridium difficile Antigen (VICKI) - Final Stool Clostridium difficile Toxin Assay - Final 67F PMH of HTN, GERD, metastatic breast cancer with metastasis to left femur, clavicle, spine, ribs presented to the ED fever vomiting and diarrhea. 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 difficile colitis continue pain control physical therapy ID consult-appreciated continue ABx for C. diff continue prednisone 10mg po daily for now - will get Dr. Segura to comeback and see patient patient can f/u as outpatient with Dr. Galvan for faslodex injection and follow up f/u with Dr segura as outpatient C diff-positive for antigen and toxin blood cultures-NGTD Stool cultures negative Will follow
--- NOTE | 2018-02-19 17:33 | PN ---
Teaching Attending Note Name of Resident: Mehrdad Jacob ATTENDING PHYSICIAN STATEMENT I saw and evaluated the patient. I reviewed the resident's note and discussed the case with the resident. I agree with the resident's findings and plan as documented. SUBJECTIVE: Patient seen and examined --Agree with Dr. Jacob follow up. Diarrhea abating . Will need p.o. vanco. To have rheumatology follow up in view of flare of left foot polyarthritis. OBJECTIVE: ASSESSMENT AND PLAN:
[2018-02-19] MEDS: FAMOTIDINE 20 MG/50 ML IVPB 20 MG/50 ML MG IVPB SCH (21:21)
[2018-02-19] MEDS: ALPRAZolam 0.25 MG TABLET PO SCH (21:22)
[2018-02-20] MEDS: HEPARIN NA (PORCINE) 5,000 UNITS/ML 1ML VIAL SQ SCH ×3 (06:13→22:06)
[2018-02-20] MEDS: VANCOMYCIN 250 MG/5 ML ORAL SOLUTION PO SCH ×4 (06:13→23:14)
[2018-02-20] MEDS: GABAPENTIN 100 MG CAPSULE (FP) PO SCH ×3 (06:13→22:06)
[2018-02-20 08:46] LABS: BASO % 1.3 % (0-2.0); HEMOGLOBIN 10.5 GM/dL (10.7-15.3); LYMPH % 23.6 % (8-40); MCH 28.8 pg (25.7-33.7); MEAN CELL VOLUME 82.4 fl (80-96); MEAN PLT VOLUME 7.1 fl (7.5-11.1); MONO % 9.5 % (3.8-10.2); NEUT % 63.6 % (42.8-82.8); PLATELET COUNT 460 K/MM3 (134-434); RBC 3.64 M/mm3 (3.60-5.2); RDW 13.9 % (11.6-15.6); WHITE BLOOD COUNT 6.5 K/mm3 (4.0-10.0)
[2018-02-20] MEDS: LACTOBACILLUS ACIDOPHILUS 1 TABLET PO SCH (09:15)
[2018-02-20] MEDS: predniSONE 10 MG TABLET (UD) PO SCH (09:15)
[2018-02-20] MEDS: FAMOTIDINE 20 MG/50 ML IVPB 20 MG/50 ML MG IVPB SCH ×2 (09:15→22:05)
[2018-02-20] MEDS: LISINOPRIL 10 MG TABLET (FP) PO SCH (09:15)
[2018-02-20] MEDS: metoPROLOL SUCCINATE 25 MG TAB.SR.24H (FP) PO SCH (09:15)
[2018-02-20] MEDS: HYDROCHLOROTHIAZIDE 12.5 MG CAPSULE (FP) PO SCH (09:15)
[2018-02-20 09:18] LABS: ALBUMIN 3.3 g/dl (3.4-5.0); ALK PHOS 95 U/L (45-117); ANION GAP 6 MMOL/L (8-16); BILIRUBIN,TOTAL 0.4 mg/dL (0.2-1); BLOOD UREA NITROGEN 9 mg/dL (7-18); CALCIUM 8.8 mg/dL (8.5-10.1); CHLORIDE 106 mmol/L (98-107); CO2 29 mmol/L (21-32); CREATININE 0.9 mg/dL (0.55-1.3); GLUCOSE,RANDOM 87 mg/dL (74-106); MAGNESIUM 2.2 mg/dL (1.8-2.4); POTASSIUM 4.1 mmol/L (3.5-5.1); SGOT/AST 59 U/L (15-37); SGPT/ALT 67 U/L (13-61); SODIUM 141 mmol/L (136-145); TOT PROT 6.7 g/dl (6.4-8.2)
--- NOTE | 2018-02-20 11:17 | PN ---
Progress Note (short form) - Note Progress Note: HEMATOLOGY CONSULT NOTE Doing well Had a shower ankle swelling decreased less violacous walking around can go home Vital Signs Period Temp Pulse Resp BP Sys/Nuñez Pulse Ox Last 24 Hr 97.9 F-98.5 F 66-72 17-19 107-154/59-81 99-100 CBC, BMP 02/20/18 08:00 02/20/18 08:00 Active Medications Generic Name Dose Route Start Last Admin Trade Name Freq PRN Reason Stop Dose Admin Alprazolam 1 mg 02/16/18 22:00 02/19/18 21:22 Xanax - PO 1 mg HS CARTER Administration Gabapentin 300 mg 02/16/18 22:00 02/20/18 06:13 Neurontin - PO 300 mg TID [facility]TER Administration Heparin Sodium (Porcine) 5,000 unit 02/16/18 06:00 02/20/18 06:13 Heparin - SQ 5,000 unit TID CARTER Administration Hydrochlorothiazide 12.5 mg 02/17/18 10:00 02/20/18 09:15 Hctz - PO 12.5 mg DAILY [facility]TER Administration Famotidine/Sodium Chloride 20 mg in 50 mls @ 100 mls/hr 02/19/18 22:00 09:15 Pepcid 20 Mg Premixed Ivpb - IVPB 100 mls/hr BID CARTER Administration Lactobacillus Acidophilus 1 tab 02/19/18 10:00 02/20/18 09:15 Bacid - PO 1 tab DAILY [facility] Administration Lisinopril 10 mg 02/17/18 10:00 02/20/18 09:15 Prinivil PO 10 mg DAILY [facility] Administration Metoprolol Succinate 25 mg 02/17/18 10:00 02/20/18 09:15 Toprol Xl - PO 25 mg DAILY [facility] Administration Ondansetron HCl 4 mg 02/16/18 14:20 02/16/18 14:03 Zofran Injection IVPUSH 4 mg Q8H PRN Administration NAUSEA Oxycodone HCl 7.5 mg 02/16/18 21:23 Roxicodone - PO Q4H PRN PAIN 7-10 Prednisone 10 mg 02/17/18 10:00 02/20/18 09:15 Deltasone - PO 10 mg DAILY [facility] Administration Tramadol HCl 50 mg 10/30/18 21:15 Ultram - PO Q6H PRN PAIN LEVEL 4 - 6 Vancomycin HCl 125 mg 02/16/18 06:00 02/20/18 06:13 Vancomycin Oral Solution PO 125 mg Q6HPO [facility] Administration doing well can f/v as an outpatient with Dr. Galvan continue vanc as an outpatient
[2018-02-20 11:40] LABS: ANISOCYTOSIS 2+; MACROCYTOSIS 0; PLATELET ESTIMATE NORMAL
--- NOTE | 2018-02-20 14:59 | PN ---
Physical Exam: SUBJECTIVE: feels like her left foot is more swollen today, OBJECTIVE: flare of left foot, rheumatology follow up Vital Signs Period Temp Pulse Resp BP Sys/Nuñez Pulse Ox Last 24 Hr 97.9 F-98.5 F 66-72 17-19 107-154/59-81 99-100 GENERAL: The patient is awake, alert, and fully oriented, in no acute distress. HEAD: Normal with no signs of trauma. EXTREMITIES: left inner foot pain/edema. left foot with non pitting edema on ankle. NEUROLOGICAL: Normal speech, steady gait PSYCH: Normal mood, normal affect. Laboratory Results - last 24 hr 02/19/18 02/20/18 02/20/18 07:30 08:00 08:00 WBC 6.5 RBC 3.64 Hgb 10.5 L Hct 30.0 L MCV 82.4 MCH 28.8 MCHC 35.0 RDW 13.9 Plt Count 460 H MPV 7.1 L Absolute Neuts (auto) 4.2 Neutrophils % 63.6 Neutrophils % (Manual) 49.0 48.5 Band Neutrophils % 8.3 2.0 Lymphocytes % 23.6 Lymphocytes % (Manual) 22.9 D 24.3 Monocytes % 9.5 Monocytes % (Manual) 6 14 H D Eosinophils % 2.0 Eosinophils % (Manual) 1.0 4.0 D Basophils % 1.3 Basophils % (Manual) 0.0 1.0 D Myelocytes % (Man) 0 D 2 D Promyelocytes % (Man) 0 0 Blast Cells % (Manual) 0 0 Nucleated RBC % 0 Metamyelocytes 0 3 H D Hypochromia 0 0 Platelet Estimate Normal Normal Platelet Comment Present Polychromasia 2+ 0 Poikilocytosis 0 0 Anisocytosis 2+ 2+ Microcytosis 2+ 2+ Macrocytosis 1+ 0 Spherocytes 1+ Ovalocytes 2+ Sodium 141 Potassium 4.1 Chloride 106 Carbon Dioxide 29 Anion Gap 6 L BUN 9 Creatinine 0.9 Creat Clearance w eGFR > 60 Random Glucose 87 Calcium 8.8 Magnesium 2.2 Total Bilirubin 0.4 AST 59 H ALT 67 H Alkaline Phosphatase 95 Total Protein 6.7 Albumin 3.3 L Active Medications Generic Name Dose Route Start Last Admin Trade Name Freq PRN Reason Stop Dose Admin Alprazolam 1 mg 02/16/18 22:00 02/19/18 21:22 Xanax - PO 1 mg HS CARTER Administration Gabapentin 300 mg 02/16/18 22:00 02/20/18 13:27 Neurontin - PO 300 mg TID CARTER Administration Heparin Sodium (Porcine) 5,000 unit 02/16/18 06:00 02/20/18 13:27 Heparin - SQ 5,000 unit TID CARTER Administration Hydrochlorothiazide 12.5 mg 02/17/18 10:00 02/20/18 09:15 Hctz - PO 12.5 mg DAILY CARTER Administration Famotidine/Sodium Chloride 20 mg in 50 mls @ 100 mls/hr 02/19/18 22:00 09:15 Pepcid 20 Mg Premixed Ivpb - IVPB 100 mls/hr BID CARTER Administration Lactobacillus Acidophilus 1 tab 02/19/18 10:00 02/20/18 09:15 Bacid - PO 1 tab DAILY [facility]TER Administration Lisinopril 10 mg 02/17/18 10:00 02/20/18 09:15 Prinivil PO 10 mg DAILY CARTER Administration Metoprolol Succinate 25 mg 02/17/18 10:00 02/20/18 09:15 Toprol Xl - PO 25 mg DAILY [facility]TER Administration Ondansetron HCl 4 mg 02/16/18 14:20 02/16/18 14:03 Zofran Injection IVPUSH 4 mg Q8H PRN Administration NAUSEA Oxycodone HCl 7.5 mg 02/16/18 21:23 Roxicodone - PO Q4H PRN PAIN 7-10 Prednisone 10 mg 02/17/18 10:00 02/20/18 09:15 Deltasone - PO 10 mg DAILY [facility]TER Administration Tramadol HCl 50 mg 02/16/18 21:15 Ultram - PO Q6H PRN PAIN LEVEL 4 - 6 Vancomycin HCl 125 mg 02/16/18 06:00 02/20/18 11:52 Vancomycin Oral Solution PO 125 mg Q6HPO CARTER Administration ASSESSMENT/PLAN: Imaging: ctap: s/p cholecystectomy with mild dilatation of the central intrahepatic bile duds and likely air within the distal portion of the CBD. There is also a possible adjacent duodenal diverticula measuring apx 2cm. non distention and possible thickening of the cecal wall, proximal and mid transverse colon as well as the sigmoid colon. cannot rule out colitis. correlate clinically. non visualization of the uterus and appendix. no free air or gross enlarged lymph nodes identified. ASSESSMENT/PLAN: Patient is a 67 year old female with a significant past medical history of hypertension, breast cancer with mets to left femur, clavicle, spine and ribs. Patient presents to the ED with complaint of fevers, diarrhea, vomiting, and abdominal pain. --------- sepsis c diff colitis hypertension breast cancer with mets - left breast Inflammatory arthritis ID: Sepsis. resolved. Mets sepsis criteria on admission in the setting of a immunocompromised patient : Received Zosyn on admission, but discontinued 02/16 as symptoms likely secondary to c diff colitis. Patient recently hospitalized here and received IV antibiotics for left knee swelling and fevers at home. ID consulted and following. GI: C. diff colitis. (toxin and antigen). improving. Multiple episodes of vomiting on admission. has now since resolved and her diet has been advanced from clears to solids. Denies nausea or further vomiting Rheumatology: Inflammatory arthritis, left foot/ankle. Seen by rhuematology on last admission and put on low dose steriods. Left inner foot remains tender, painful. new flare of left foot arthritis rheumatology consulted Card: Hypertension. controlled. continue home meds, toprol, lisinopril, hctz. had one elevated systolic reading. continue to monitor. Chest tightness, troponins negative. chest pain resolved. No ekg changes. Heme/Onc: Left breast cancer with mets: followed by hematology/oncology. fen tolerate PO monitor electrolytes clears prophy heparin tid. protonix full code Visit type - Emergency Visit Emergency Visit: Yes ED Registration Date: 02/17/18 Care time: The patient presented to the Emergency Department on the above date and was hospitalized for further evaluation of their emergent condition. - New Patient This patient is new to me today: No - Critical Care Critical Care patient: No - Discharge Referral Referred to [facility] No
[2018-02-20] MEDS: ALPRAZolam 0.25 MG TABLET PO SCH (22:05)
--- NOTE | 2018-02-20 22:49 | CONSULT ---
Consult Consult Specialty:: Rheumatology - History of Present Illness History of Present Illness: 68 year old female with metaqstasic breast carcinoma and possible paraneoplasic arthritis, admitted with diarrhea, vomiting and fever. HPI. The patient has a 1 month history of pain in knees and ankles. In her previous admission she had arthrocentesis of the fet knee, synovial fluid had WBC 37547, culture and crysrtals were negative. Base on possible paraneoplasic polyarthritis, I started Prednisone 10 mg/d, she improved, however she reporte edema of the left ankle related to activity and she has minimal tenderness in knees. Since admission she has not have fever and diarrhea improved. - History Source History Provided By: Patient, Medical Record - Past Medical History Cardio/Vascular: Yes: HTN Gastrointestinal: Yes: GERD ...: No Psych: Yes: Anxiety - Past Surgical History Past Surgical History: Yes: Cholecystectomy, Hysterectomy - Alcohol/Substance Use Hx Alcohol Use: No History of Substance Use: reports: None - Smoking History Smoking history: Never smoked Have you smoked in the past 12 months: No - Social History Usual Living Arrangement: With Child ADL: Independent History of Recent Travel: Yes (just returned from [facility] 01/19) Home Medications - Allergies Allergies/Adverse Reactions: Allergies Allergy/AdvReac Type Severity Reaction Status Date / Time No Known Drug Allergies Allergy Verified 02/15/18 22:35 - Home Medications Home Medications: Ambulatory Orders Alprazolam [Xanax] 1 mg PO HS 05/30/17 Gabapentin 300 mg PO TID 05/30/17 Lisinopril/Hydrochlorothiazide [Lisinopril-Hctz 10-12.5 mg Tab] 1 each PO DAILY 05/30/17 Metoprolol Succinate [Toprol Xl] 25 mg PO DAILY 05/30/17 Tramadol HCl 50 mg PO PRN 05/30/17 Omeprazole 20 mg PO DAILY 02/05/18 Oxycodone HCl/Acetaminophen [Oxycodon-Acetaminophen 7.5-325] 1 each PO Q4H PRN 02/05/18 predniSONE [Deltasone -] 10 mg PO DAILY #14 tablet 02/13/18 Vancomycin Oral Solution 125 mg PO Q6HPO #1 bottle 02/19/18 Family Disease History - Family Disease History Family Disease History: CA: Brother, Sister Review of Systems - Review of Systems Constitutional: reports: Malaise Eyes: reports: No Symptoms HENT: reports: No Symptoms Neck: reports: No Symptoms Cardiovascular: reports: No Symptoms Respiratory: reports: No Symptoms Gastrointestinal: reports: Diarrhea, Nausea, Vomiting Musculoskeletal: reports: Other (See HPI) Physical Exam Vital Signs: Vital Signs Temperature 97.7 F 02/20/18 22:00 Pulse Rate 69 02/20/18 22:00 Respiratory Rate 17 02/20/18 22:00 Blood Pressure 133/70 02/20/18 22:00 O2 Sat by Pulse Oximetry (%) 100 02/20/18 09:00 Constitutional: Yes: No Distress Eyes: Yes: WNL HENT: Yes: WNL Neck: Yes: WNL Cardiovascular: Yes: WNL Respiratory: Yes: WNL Gastrointestinal: Yes: WNL Musculoskeletal: Yes: Other (No active joints. Knees and ankles were not tender nor swollen.) Labs: CBC, BMP 02/20/18 08:00 02/20/18 08:00 Problem List - Problems (1) Inflammatory arthritis Assessment/Plan: History of inflammatory arthritis, possibly related to paraneoplasic polyarthritis. On prednisone 10 mg/d. At the present time she does not have active arthritis. Pain in the left leg probably related to edema. Plan: Decrease Prednisone to 5 mg/d. Code(s): M19.90 - UNSPECIFIED OSTEOARTHRITIS, UNSPECIFIED SITE
[2018-02-21] MEDS: HEPARIN NA (PORCINE) 5,000 UNITS/ML 1ML VIAL SQ SCH (05:51)
[2018-02-21] MEDS: GABAPENTIN 100 MG CAPSULE (FP) PO SCH (05:52)
[2018-02-21] MEDS: VANCOMYCIN 250 MG/5 ML ORAL SOLUTION PO SCH ×2 (05:52→12:19)
[2018-02-21 09:14] LABS: EOS % 1.7 % (0-4.5); HEMATOCRIT 30.6 % (32.4-45.2); HEMOGLOBIN 10.7 GM/dL (10.7-15.3); LYMPH % 23.9 % (8-40); MCHC 34.9 g/dl (32.0-36.0); MEAN CELL VOLUME 83.1 fl (80-96); MEAN PLT VOLUME 6.9 fl (7.5-11.1); MONO % 8.1 % (3.8-10.2); NEUT % 65.3 % (42.8-82.8); PLATELET COUNT 443 K/MM3 (134-434); RBC 3.68 M/mm3 (3.60-5.2); RDW 14.1 % (11.6-15.6)
[2018-02-21 09:38] LABS: ALBUMIN 3.4 g/dl (3.4-5.0); ALK PHOS 96 U/L (45-117); ANION GAP 8 MMOL/L (8-16); BILIRUBIN,TOTAL 0.5 mg/dL (0.2-1); BLOOD UREA NITROGEN 10 mg/dL (7-18); CALCIUM 8.3 mg/dL (8.5-10.1); CHLORIDE 107 mmol/L (98-107); CO2 27 mmol/L (21-32); GLUCOSE,RANDOM 121 mg/dL (74-106); POTASSIUM 3.6 mmol/L (3.5-5.1); SGOT/AST 43 U/L (15-37); SGPT/ALT 67 U/L (13-61); SODIUM 142 mmol/L (136-145)
[2018-02-21] MEDS ORDERED: predniSONE 5 MG TABLET (UD) PO SCH (10:00)
[2018-02-21 10:14] VITALS: BP 136/65; PULSE 72; TEMP 98.3
[2018-02-21] MEDS: LISINOPRIL 10 MG TABLET (FP) PO SCH (10:14)
[2018-02-21] MEDS: metoPROLOL SUCCINATE 25 MG TAB.SR.24H (FP) PO SCH (10:14)
[2018-02-21] MEDS: FAMOTIDINE 20 MG/50 ML IVPB 20 MG/50 ML MG IVPB SCH (10:14)
[2018-02-21] MEDS: LACTOBACILLUS ACIDOPHILUS 1 TABLET PO SCH (10:14)
[2018-02-21] MEDS: HYDROCHLOROTHIAZIDE 12.5 MG CAPSULE (FP) PO SCH (10:14)
[2018-02-21 11:34] LABS: ACANTHOCYTES 0; ANISOCYTOSIS 0; HELMET CELLS 0; HOWELL-JOLLY BODIES 0; MACROCYTOSIS 0; OVALOCYTE 0; PLATELET ESTIMATE NORMAL; ROULEAU 0; SICKELED CELLS 0; TARGET CELLS 0; TEAR DROP CELLS 0; TOXIC GRANULATION 0
--- NOTE | 2018-02-21 12:04 | DS ---
Physical Exam: SUBJECTIVE: Patient seen and examined at the bedside. OBJECTIVE: Vital Signs Period Temp Pulse Resp BP Sys/Nuñez Pulse Ox Last 24 Hr 97.7 F-98.3 F 64-72 17-20 110-141/65-75 99 PHYSICAL EXAM GENERAL: The patient is awake, alert, and fully oriented, in no acute distress. HEAD: Normal with no signs of trauma. LUNGS: Breath sounds equal, clear to auscultation bilaterally, no wheezes, no crackles, no accessory muscle use. EXTREMITIES: left inner foot pain/edema. left foot with non pitting edema on ankle. NEUROLOGICAL: Normal speech, steady gait PSYCH: Normal mood, normal affect. SKIN: Warm, dry, normal turgor, no rashes or lesions noted. LABS Laboratory Results - last 24 hr 02/21/18 02/21/18 08:52 08:52 WBC 7.0 RBC 3.68 Hgb 10.7 Hct 30.6 L MCV 83.1 MCH 29.0 MCHC 34.9 RDW 14.1 Plt Count 443 H MPV 6.9 L Absolute Neuts (auto) 4.6 Neutrophils % 65.3 Neutrophils % (Manual) 58.3 Band Neutrophils % 1.1 Lymphocytes % 23.9 Lymphocytes % (Manual) 28.1 Monocytes % 8.1 Monocytes % (Manual) 7 Eosinophils % 1.7 Eosinophils % (Manual) 0.0 D Basophils % 1.0 Basophils % (Manual) 0.0 Myelocytes % (Man) 0 D Promyelocytes % (Man) 0 Blast Cells % (Manual) 0 Nucleated RBC % 0 Metamyelocytes 2 D Hypochromia 0 Toxic Granulation 0 Dohle Bodies 0 Platelet Estimate Normal Polychromasia 0 Poikilocytosis 0 Basophilic Stippling 0 Anisocytosis 0 Microcytosis 0 Macrocytosis 0 Spherocytes 0 Sickle Cells 0 Target Cells 0 Tear Drop Cells 0 Ovalocytes 0 Stomatocytes 0 Helmet Cells 0 Noel-Velma Bodies 0 Vinson Rings 0 Stanwood Cells 0 Acanthocytes (Spur) 0 Rouleaux 0 Fragmented RBCs 0 Schistocytes 0 Sodium 142 Potassium 3.6 Chloride 107 Carbon Dioxide 27 Anion Gap 8 BUN 10 Creatinine 1.0 Creat Clearance w eGFR 55.47 Random Glucose 121 H Calcium 8.3 L Magnesium 2.0 Total Bilirubin 0.5 AST 43 H ALT 67 H Alkaline Phosphatase 96 Total Protein 7.0 Albumin 3.4 HOSPITAL COURSE: Imaging: ctap: s/p cholecystectomy with mild dilatation of the central intrahepatic bile duds and likely air within the distal portion of the CBD. There is also a possible adjacent duodenal diverticula measuring apx 2cm. non distention and possible thickening of the cecal wall, proximal and mid transverse colon as well as the sigmoid colon. cannot rule out colitis. correlate clinically. non visualization of the uterus and appendix. no free air or gross enlarged lymph nodes identified. ASSESSMENT/PLAN: Patient is a 67 year old female with a significant past medical history of hypertension, breast cancer with mets to left femur, clavicle, spine and ribs. Patient presents to the ED with complaint of fevers, diarrhea, vomiting, and abdominal pain. --------- sepsis c diff colitis hypertension breast cancer with mets - left breast Inflammatory arthritis ID: Sepsis. resolved. Mets sepsis criteria on admission in the setting of a immunocompromised patient : Received Zosyn on admission, but discontinued 02/16 as symptoms likely secondary to c diff colitis. Patient recently hospitalized here and received IV antibiotics for left knee swelling and fevers at home. ID consulted and following. GI: C. diff colitis. (toxin and antigen). improving. Multiple episodes of vomiting on admission. has now since resolved and her diet has been advanced from clears to solids. Denies nausea or further vomiting. will continue Vancomycin 125mg q6 for a total of 14 days. Rheumatology: Inflammatory arthritis, left foot/ankle, acute on chronic Seen by rhuematology on last admission and put on low dose steriods (Prednisone 10mg). Seen on 02/20/18 for follow up with rheumatology and Prednisone doseage decreased to prednisone 5mg. Patient to follow up with Dr. Mittal outpatient. Card: Hypertension. controlled. continue home meds, toprol, lisinopril, hctz. Heme/Onc: Left breast cancer with mets: followed by hematology/oncology. Date of Admission:02/17/18 Date of Discharge: 02/21/18 Minutes to complete discharge: 60 Discharge Summary Reason For Visit: MALIGNANT NEOPLASM OF LEFT BREAST,FEVER Current Active Problems Clostridium difficile colitis (Acute) Colitis (Acute) Fever (Acute) Metastatic breast cancer (Acute) Vomiting (Acute) Condition: Stable - Instructions Diet, Activity, Other Instructions: Mrs Julianna Escobar: You were admitted on 02/17/2018 for vomiting, nausea and diarrhea. We found that you tested positive for clostridium difficile. You will need treatment with Vancomycin 125mg capsules for a total of 14 days. Here are our recommendations: *Clostridium Difficile. This bacteria can be caused by people taking antibiotic or have recently taken antibiotics. The symptoms are usually multiple episodes of watery diarrhea. We started you on Vancomycin 125mg liquid every 6 hours, started on 02/16/2018. You will need 14 days total of this medication, therefore you will complete your vancomycin medication on 03/01/2018. Take it as follows - Vancomycin 125mg every 6 hours at 12 a.m., 6 a.m., 12 p.m., 6pm. - Bacid, take daily. this is a probiotic. How to prevent spread of Clostridium Difficile: The best way to stop spreading this bacteria to others to is wash your hands before and after coming in contact with someone. C. diff is contagious and microorganisms can be spread from person to person by touch or by contact with contaminated objects and surfaces. You can clean surfaces with a Clorax wipes and assure that others that you come in contact with wash their hands with soap water. *Blood pressure: continue your home medications. You blood pressure is well controlled. Please follow up with your primary care doctor for a follow up appointment within 3 - 5 days. *Left foot swelling: You were seen by Dr. Mittal on 02/20/2018 and he has decreased your prednisone dose. Please follow up with him within 1-2 weeks if your symptoms worsen or do not improve. He will determine how long you will remain on this medication. New medications: Pepcid 20mg twice per day, for your acid reflux Prednisone 5mg, once per day. Please follow up with Dr. Mittal within 1 week for follow up. Vancomycin 125mg capsules. During the hospital, we gave you a liquid form of the Vancomycin. You will be sent home with the Vancomycin capsules. Please take them as noted above. continue taking them even if your stools are solid and you feel better. It is important to complete the 14 days of therapy ( to March 01/2018) Please follow up with and schedule an appointment with him. Thank you for allowing us to care for you. Please return to the ER if your symptoms worsen. I am available for any questions that you may have. Lupe So Bhakta [employer]ILN [employer] [phone] [facility] Referrals: Sanjay Bashir DO [Staff Physician] - Serjio Aquino MD [Staff Physician] - 1 Week Page Go DO [Staff Physician] - Shay Galvan MD [Primary Care Provider] - Disposition: HOME - Home Medications Comprehensive Discharge Medication List: Ambulatory Orders Alprazolam [Xanax] 1 mg PO HS 05/30/17 Gabapentin 300 mg PO TID 05/30/17 Lisinopril/Hydrochlorothiazide [Lisinopril-Hctz 10-12.5 mg Tab] 1 each PO DAILY 05/30/17 Metoprolol Succinate [Toprol Xl] 25 mg PO DAILY 05/30/17 Tramadol HCl 50 mg PO PRN 05/30/17 Omeprazole 20 mg PO DAILY 02/05/18 Oxycodone HCl/Acetaminophen [Oxycodon-Acetaminophen 7.5-325] 1 each PO Q4H PRN 02/05/18 predniSONE [Deltasone -] 10 mg PO DAILY #14 tablet 02/13/18 Vancomycin Oral Solution 125 mg PO Q6HPO #1 bottle 02/19/18 This patient is new to me today: Yes Date on this admission: 02/21/18 Emergency Visit: Yes ED Registration Date: 02/17/18 Care time: The patient presented to the Emergency Department on the above date and was hospitalized for further evaluation of their emergent condition. Critical Care patient: No - Discharge Referral Referred to [facility] No
== END 2018-02-21 14:50 | disposition home or self-care (01) | DRG 372 ==
LOC: JER 22:25 → JERBED 02-16 02:42 → INTOOBSV 02-16 02:42 → J6S 02-16 19:09 → OBSVTOIN 02-17 15:42
PROVIDERS: ADMIT Internal Medicine; ATTEND Nurse Practitioner Family
DX: A04.72 Enterocolitis due to Clostridium difficile, not specified as recurrent (principal); C79.51 Secondary malignant neoplasm of bone; C50.912 Malignant neoplasm of unspecified site of left female breast; M06.4 Inflammatory polyarthropathy; I10 Essential (primary) hypertension; K21.9 Gastro-esophageal reflux disease without esophagitis
CPT/HCPCS: 36415; 71045-TC-FY; 74177-TC; 80053; 81003; 83605; 83735; 84100; 84484; 85025; 85027; 85610; 85651; 85730; 86140; 87040; 87045; 87046; 87086; 87205; 87324; 87449; 93005; 93010; 99285-25; G0378; J0131; J1644; J7030

== ENCOUNTER 2018-02-23 09:37 | Day surgery (SDC) | payer MEDICARE ==
[2018-02-23 10:19] LABS: BASO % 1.2 % (0-2.0); EOS % 0.6 % (0-4.5); HEMATOCRIT 32.8 % (32.4-45.2); HEMOGLOBIN 11.4 GM/dL (10.7-15.3); LYMPH % 12.3 % (8-40); MCH 28.8 pg (25.7-33.7); MCHC 34.6 g/dl (32.0-36.0); MEAN CELL VOLUME 83.2 fl (80-96); MEAN PLT VOLUME 6.9 fl (7.5-11.1); MONO % 6.9 % (3.8-10.2); PLATELET COUNT 423 K/MM3 (134-434); RBC 3.94 M/mm3 (3.60-5.2); RDW 14.3 % (11.6-15.6); WHITE BLOOD COUNT 8.6 K/mm3 (4.0-10.0)
[2018-02-23 10:43] LABS: ALK PHOS 105 U/L (45-117); ANION GAP 8 MMOL/L (8-16); BILIRUBIN,DIRECT 0.2 mg/dL (0.0-0.2); BILIRUBIN,TOTAL 0.5 mg/dL (0.2-1); BLOOD UREA NITROGEN 10 mg/dL (7-18); CALCIUM 9.5 mg/dL (8.5-10.1); CHLORIDE 104 mmol/L (98-107); CO2 29 mmol/L (21-32); CREATININE 0.9 mg/dL (0.55-1.3); GLUCOSE,RANDOM 101 mg/dL (74-106); MAGNESIUM 2.1 mg/dL (1.8-2.4); POTASSIUM 4.7 mmol/L (3.5-5.1); SGOT/AST 21 U/L (15-37); SGPT/ALT 58 U/L (13-61); SODIUM 142 mmol/L (136-145); TOT PROT 7.8 g/dl (6.4-8.2)
[2018-02-23] MEDS ORDERED: FULVESTRANT 250 MG/5 ML SYRINGE IM ONE (12:30)
[2018-02-23 15:14] VITALS: BP 166/63; PULSE 64; TEMP 98.1
== END 2018-02-23 12:35 | disposition home or self-care (01) ==
LOC: JONCCHEMO 09:37 → J7W 12:10 → JONCCHEMO 12:35
PROVIDERS: ATTEND Internal Medicine Hematology & Oncology
DX: Z51.11 Encounter for antineoplastic chemotherapy (principal); C50.911 Malignant neoplasm of unspecified site of right female breast; C79.51 Secondary malignant neoplasm of bone
CPT/HCPCS: 36415; 80053; 80076; 83735; 85025; 96402; J9395

== ENCOUNTER 2018-03-01 07:28 | Day surgery (SDC) | payer MEDICARE ==
[2018-03-01] MEDS ORDERED: ZOLEDRONIC ACID 4 MG in SODIUM CHLORIDE 100 ML IVPB ONE (09:30)
[2018-03-01 10:08] LABS: HEMATOCRIT 34.4 % (32.4-45.2); HEMOGLOBIN 11.7 GM/dL (10.7-15.3); LYMPH % 15.5 % (8-40); MCH 28.4 pg (25.7-33.7); MCHC 33.9 g/dl (32.0-36.0); MEAN CELL VOLUME 83.8 fl (80-96); MEAN PLT VOLUME 7.9 fl (7.5-11.1); MONO % 7.4 % (3.8-10.2); NEUT % 75.1 % (42.8-82.8); PLATELET COUNT 251 K/MM3 (134-434); RDW 15.3 % (11.6-15.6); WHITE BLOOD COUNT 6.2 K/mm3 (4.0-10.0)
[2018-03-01 11:07] LABS: ALK PHOS 100 U/L (45-117); ANION GAP 9 MMOL/L (8-16); BILIRUBIN,DIRECT 0.2 mg/dL (0.0-0.2); BILIRUBIN,TOTAL 0.7 mg/dL (0.2-1); BLOOD UREA NITROGEN 16 mg/dL (7-18); CALCIUM 8.9 mg/dL (8.5-10.1); CHLORIDE 105 mmol/L (98-107); CO2 29 mmol/L (21-32); CREATININE 0.9 mg/dL (0.55-1.3); GLUCOSE,RANDOM 87 mg/dL (74-106); MAGNESIUM 2.2 mg/dL (1.8-2.4); POTASSIUM 4.3 mmol/L (3.5-5.1); SGOT/AST 20 U/L (15-37); SGPT/ALT 59 U/L (13-61); SODIUM 142 mmol/L (136-145); TOT PROT 7.8 g/dl (6.4-8.2)
[2018-03-01 13:24] VITALS: TEMP 97.9
[2018-03-01] MEDS ORDERED: PORTA CATH FLUSH 10 ML IVPUSH ONE (13:24)
[2018-03-01 13:25] VITALS: BP 130/69; PULSE 60
== END 2018-03-01 12:15 | disposition home or self-care (01) ==
LOC: JONCCHEMO 07:28 → J7W 09:37 → JONCCHEMO 12:15
PROVIDERS: ATTEND Internal Medicine Hematology & Oncology
PROC: 3E033GC Introduction of Other Therapeutic Substance into Peripheral Vein, Percutaneous Approach (ICD-10-PCS; principal; 2018-03-01)
DX: C50.911 Malignant neoplasm of unspecified site of right female breast (principal); C79.51 Secondary malignant neoplasm of bone
CPT/HCPCS: 36415; 80053; 80076; 83735; 85025; 96365; 96417; J3489

== ENCOUNTER 2018-03-08 07:26 | Day surgery (SDC) | payer MEDICARE ==
[2018-03-08] MEDS ORDERED: FULVESTRANT 250 MG/5 ML SYRINGE IM ONE (10:00)
[2018-03-08 10:16] LABS: BASO % 0.7 % (0-2.0); EOS % 0.4 % (0-4.5); HEMATOCRIT 36.9 % (32.4-45.2); HEMOGLOBIN 11.9 GM/dL (10.7-15.3); LYMPH % 17.5 % (8-40); MCH 27.2 pg (25.7-33.7); MCHC 32.1 g/dl (32.0-36.0); MEAN CELL VOLUME 84.8 fl (80-96); MEAN PLT VOLUME 7.7 fl (7.5-11.1); MONO % 7.8 % (3.8-10.2); NEUT % 73.6 % (42.8-82.8); PLATELET COUNT 237 K/MM3 (134-434); RBC 4.35 M/mm3 (3.60-5.2); RDW 15.7 % (11.6-15.6); WHITE BLOOD COUNT 6.3 K/mm3 (4.0-10.0)
[2018-03-08 10:49] LABS: ALBUMIN 4.1 g/dl (3.4-5.0); BILIRUBIN,DIRECT 0.1 mg/dL (0.0-0.2); BILIRUBIN,TOTAL 0.6 mg/dL (0.2-1); MAGNESIUM 2.3 mg/dL (1.8-2.4); TOT PROT 7.9 g/dl (6.4-8.2)
[2018-03-08 10:53] LABS: ALBUMIN 4.2 g/dl (3.4-5.0); ALK PHOS 116 U/L (45-117); ANION GAP 8 MMOL/L (8-16); BILIRUBIN,TOTAL 0.6 mg/dL (0.2-1); BLOOD UREA NITROGEN 21 mg/dL (7-18); CALCIUM 9.1 mg/dL (8.5-10.1); CHLORIDE 100 mmol/L (98-107); CO2 29 mmol/L (21-32); CREATININE 0.9 mg/dL (0.55-1.3); GLUCOSE,RANDOM 88 mg/dL (74-106); POTASSIUM 4.5 mmol/L (3.5-5.1); SGOT/AST 19 U/L (15-37); SGPT/ALT 56 U/L (13-61); SODIUM 137 mmol/L (136-145)
[2018-03-08 11:50] LABS: ERYTHROCYTE SEDIMENTATION RATE 23 mm/hr (0-30)
[2018-03-08 13:24] VITALS: BP 139/67; PULSE 63; TEMP 97.7
== END 2018-03-08 11:40 | disposition home or self-care (01) ==
LOC: JONCCHEMO 07:26 → J7W 11:11 → JONCCHEMO 11:40
PROVIDERS: ATTEND Internal Medicine Hematology & Oncology
DX: Z51.11 Encounter for antineoplastic chemotherapy (principal); C50.911 Malignant neoplasm of unspecified site of right female breast; C79.51 Secondary malignant neoplasm of bone
CPT/HCPCS: 36415; 80053; 80076; 83735; 85025; 85651; 96402; J9395

== ENCOUNTER 2018-03-29 07:19 | Day surgery (SDC) | payer MEDICARE ==
[2018-03-29] MEDS ORDERED: ZOLEDRONIC ACID 4 MG in SODIUM CHLORIDE 100 ML IVPB ONE (10:00)
[2018-03-29] MEDS ORDERED: FULVESTRANT 250 MG/5 ML SYRINGE IM ONE (10:00)
[2018-03-29 10:29] LABS: EOS % 0.8 % (0-4.5); HEMATOCRIT 35.3 % (32.4-45.2); HEMOGLOBIN 12.4 GM/dL (10.7-15.3); LYMPH % 17.1 % (8-40); MCH 29.4 pg (25.7-33.7); MCHC 35.2 g/dl (32.0-36.0); MEAN CELL VOLUME 83.4 fl (80-96); MEAN PLT VOLUME 7.5 fl (7.5-11.1); MONO % 8.4 % (3.8-10.2); NEUT % 72.7 % (42.8-82.8); PLATELET COUNT 260 K/MM3 (134-434); RBC 4.23 M/mm3 (3.60-5.2); RDW 15.7 % (11.6-15.6); WHITE BLOOD COUNT 5.6 K/mm3 (4.0-10.0)
[2018-03-29 10:57] LABS: ALBUMIN 4.1 g/dl (3.4-5.0); BILIRUBIN,DIRECT 0.1 mg/dL (0.0-0.2); BILIRUBIN,TOTAL 0.6 mg/dL (0.2-1); MAGNESIUM 2.4 mg/dL (1.8-2.4); TOT PROT 7.8 g/dl (6.4-8.2)
[2018-03-29 11:00] LABS: ALBUMIN 4.2 g/dl (3.4-5.0); ALK PHOS 114 U/L (45-117); ANION GAP 6 MMOL/L (8-16); BILIRUBIN,TOTAL 0.6 mg/dL (0.2-1); BLOOD UREA NITROGEN 17 mg/dL (7-18); CALCIUM 8.8 mg/dL (8.5-10.1); CHLORIDE 103 mmol/L (98-107); CO2 28 mmol/L (21-32); GLUCOSE,RANDOM 86 mg/dL (74-106); POTASSIUM 4.7 mmol/L (3.5-5.1); SGOT/AST 20 U/L (15-37); SGPT/ALT 30 U/L (13-61); SODIUM 137 mmol/L (136-145); TOT PROT 7.8 g/dl (6.4-8.2)
[2018-03-29] MEDS ORDERED: PORTA CATH FLUSH 10 ML IVPUSH ONE (17:17)
[2018-03-29 17:18] VITALS: BP 122/55; PULSE 67; TEMP 98.2
== END 2018-03-29 12:40 | disposition home or self-care (01) ==
LOC: JONCCHEMO 07:19 → J7W 11:26 → JONCCHEMO 12:40
PROVIDERS: ATTEND Internal Medicine Hematology & Oncology
PROC: 3E02305 Introduction of Other Antineoplastic into Muscle, Percutaneous Approach (ICD-10-PCS; principal; 2018-03-29)
PROC: 3E043GC Introduction of Other Therapeutic Substance into Central Vein, Percutaneous Approach (ICD-10-PCS; 2018-03-29)
DX: Z51.11 Encounter for antineoplastic chemotherapy (principal); C50.911 Malignant neoplasm of unspecified site of right female breast; C79.51 Secondary malignant neoplasm of bone
CPT/HCPCS: 36415; 80053; 80076; 82378; 83735; 85025; 86300; 96365; 96402; 96417; J3489; J9395

== ENCOUNTER 2018-04-29 05:19 | Day surgery (SDC) | payer MEDICARE, OTHER ==
[2018-04-29] MEDS ORDERED: FULVESTRANT 250 MG/5 ML SYRINGE IM ONE (08:00)
[2018-04-29] MEDS ORDERED: ZOLEDRONIC ACID 4 MG in SODIUM CHLORIDE 100 ML IVPB ONE (08:15)
[2018-04-29 08:48] LABS: BASO % 2.6 % (0-2.0); EOS % 4.2 % (0-4.5); HEMATOCRIT 33.6 % (32.4-45.2); HEMOGLOBIN 11.7 GM/dL (10.7-15.3); LYMPH % 33.8 % (8-40); MCH 29.1 pg (25.7-33.7); MCHC 34.8 g/dl (32.0-36.0); MEAN CELL VOLUME 83.5 fl (80-96); MEAN PLT VOLUME 7.7 fl (7.5-11.1); MONO % 8.3 % (3.8-10.2); NEUT % 51.1 % (42.8-82.8); PLATELET COUNT 255 K/MM3 (134-434); RBC 4.02 M/mm3 (3.60-5.2); WHITE BLOOD COUNT 3.1 K/mm3 (4.0-10.0)
[2018-04-29 09:33] LABS: ALK PHOS 148 U/L (45-117); ANION GAP 7 MMOL/L (8-16); BILIRUBIN,DIRECT 0.2 mg/dL (0.0-0.2); BILIRUBIN,TOTAL 0.6 mg/dL (0.2-1); BLOOD UREA NITROGEN 15 mg/dL (7-18); CHLORIDE 107 mmol/L (98-107); CO2 29 mmol/L (21-32); GLUCOSE,RANDOM 109 mg/dL (74-106); MAGNESIUM 1.9 mg/dL (1.8-2.4); POTASSIUM 3.9 mmol/L (3.5-5.1); SGOT/AST 21 U/L (15-37); SGPT/ALT 21 U/L (13-61); SODIUM 143 mmol/L (136-145); TOT PROT 7.1 g/dl (6.4-8.2)
[2018-04-29 15:05] VITALS: BP 106/60; PULSE 64; TEMP 98.3
[2018-04-29] MEDS ORDERED: PORTA CATH FLUSH 10 ML IVPUSH ONE (15:05)
[2018-04-30 03:16] LABS: CARCINOEMBRYONIC ANTIGEN 1.2 ng/mL (0.0-4.7)
== END 2018-04-29 10:45 | disposition home or self-care (01) ==
LOC: JONCCHEMO 05:19 → J7W 09:43 → JONCCHEMO 10:45
PROVIDERS: ATTEND Internal Medicine Hematology & Oncology
PROC: 3E02305 Introduction of Other Antineoplastic into Muscle, Percutaneous Approach (ICD-10-PCS; principal; 2018-04-29)
PROC: 3E033GC Introduction of Other Therapeutic Substance into Peripheral Vein, Percutaneous Approach (ICD-10-PCS; 2018-04-29)
DX: Z51.11 Encounter for antineoplastic chemotherapy (principal); C50.911 Malignant neoplasm of unspecified site of right female breast; C79.51 Secondary malignant neoplasm of bone
CPT/HCPCS: 36415; 80048; 80076; 82378; 83735; 85025; 86300; 96365; 96402; 96417; J3489; J9395

== ENCOUNTER 2018-05-27 07:08 | Day surgery (SDC) | payer OTHER ==
[2018-05-27 09:05] LABS: BASO % 1.4 % (0-2.0); EOS % 3.9 % (0-4.5); HEMATOCRIT 33.3 % (32.4-45.2); HEMOGLOBIN 11.5 GM/dL (10.7-15.3); MCH 28.8 pg (25.7-33.7); MCHC 34.5 g/dl (32.0-36.0); MEAN CELL VOLUME 83.5 fl (80-96); MEAN PLT VOLUME 7.4 fl (7.5-11.1); MONO % 9.9 % (3.8-10.2); NEUT % 58.8 % (42.8-82.8); PLATELET COUNT 236 K/MM3 (134-434); RBC 3.99 M/mm3 (3.60-5.2); RDW 13.8 % (11.6-15.6); WHITE BLOOD COUNT 3.2 K/mm3 (4.0-10.0)
[2018-05-27 09:21] LABS: ALK PHOS 261 U/L (45-117); ANION GAP 5 MMOL/L (8-16); BILIRUBIN,DIRECT 0.2 mg/dL (0.0-0.2); BILIRUBIN,TOTAL 0.6 mg/dL (0.2-1); BLOOD UREA NITROGEN 20 mg/dL (7-18); CHLORIDE 104 mmol/L (98-107); CO2 31 mmol/L (21-32); GLUCOSE,RANDOM 101 mg/dL (74-106); MAGNESIUM 2.5 mg/dL (1.8-2.4); POTASSIUM 4.2 mmol/L (3.5-5.1); SGOT/AST 30 U/L (15-37); SGPT/ALT 25 U/L (13-61); SODIUM 140 mmol/L (136-145); TOT PROT 7.5 g/dl (6.4-8.2)
[2018-05-27] MEDS ORDERED: ZOLEDRONIC ACID 4 MG in SODIUM CHLORIDE 100 ML IVPB ONE (10:00)
[2018-05-27] MEDS ORDERED: FULVESTRANT 250 MG/5 ML SYRINGE IM ONE (10:00)
[2018-05-27 13:09] VITALS: BP 129/61; PULSE 68; TEMP 97.9
[2018-05-27] MEDS ORDERED: PORTA CATH FLUSH 10 ML IVPUSH ONE (14:08)
== END 2018-05-27 11:20 | disposition home or self-care (01) ==
LOC: JONCCHEMO 07:08 → J7W 09:23 → JONCCHEMO 11:20
PROVIDERS: ATTEND Internal Medicine Hematology & Oncology
PROC: 3E02305 Introduction of Other Antineoplastic into Muscle, Percutaneous Approach (ICD-10-PCS; principal; 2018-05-27)
PROC: 3E043GC Introduction of Other Therapeutic Substance into Central Vein, Percutaneous Approach (ICD-10-PCS; 2018-05-27)
DX: Z51.11 Encounter for antineoplastic chemotherapy (principal); C50.911 Malignant neoplasm of unspecified site of right female breast; C79.51 Secondary malignant neoplasm of bone
CPT/HCPCS: 36415; 80048; 80076; 83735; 85025; 96365; 96402; 96417; J3489; J9395

== ENCOUNTER 2018-06-08 13:46 | Day surgery (SDC) | payer OTHER ==
[2018-06-08 13:55] LABS: BASO % 0.4 % (0-2.0); EOS % 0.1 % (0-4.5); HEMATOCRIT 34.9 % (32.4-45.2); HEMOGLOBIN 12.2 GM/dL (10.7-15.3); LYMPH % 10.5 % (8-40); MCH 29.4 pg (25.7-33.7); MCHC 34.9 g/dl (32.0-36.0); MEAN CELL VOLUME 84.3 fl (80-96); MEAN PLT VOLUME 7.2 fl (7.5-11.1); MONO % 9.1 % (3.8-10.2); NEUT % 79.9 % (42.8-82.8); PLATELET COUNT 302 K/MM3 (134-434); RBC 4.14 M/mm3 (3.60-5.2); RDW 13.4 % (11.6-15.6); WHITE BLOOD COUNT 7.7 K/mm3 (4.0-10.0)
[2018-06-08 14:29] LABS: ALK PHOS 410 U/L (45-117); ANION GAP 7 MMOL/L (8-16); BILIRUBIN,DIRECT 0.1 mg/dL (0.0-0.2); BILIRUBIN,TOTAL 0.4 mg/dL (0.2-1); BLOOD UREA NITROGEN 18 mg/dL (7-18); CALCIUM 8.4 mg/dL (8.5-10.1); CHLORIDE 102 mmol/L (98-107); CO2 31 mmol/L (21-32); GLUCOSE,RANDOM 108 mg/dL (74-106); MAGNESIUM 2.7 mg/dL (1.8-2.4); SGOT/AST 32 U/L (15-37); SGPT/ALT 30 U/L (13-61); SODIUM 139 mmol/L (136-145)
[2018-06-08] MEDS ORDERED: D5-NS + 20 MEQ KCL - 20 MEQ/1,000 ML INFUS.BAG IV SCH (14:45)
[2018-06-08] MEDS ORDERED: PORTA CATH FLUSH 10 ML IVPUSH ONE (16:45)
[2018-06-08 16:46] VITALS: BP 140/74; PULSE 64; TEMP 97.9
== END 2018-06-08 16:40 | disposition home or self-care (01) ==
LOC: JONCNONCHE 13:46 → J7W 14:39 → JONCNONCHE 16:40
PROVIDERS: ATTEND Internal Medicine Hematology & Oncology
PROC: 3E0437Z Introduction of Electrolytic and Water Balance Substance into Central Vein, Percutaneous Approach (ICD-10-PCS; principal; 2018-06-08)
DX: C50.911 Malignant neoplasm of unspecified site of right female breast (principal); C79.51 Secondary malignant neoplasm of bone; Z76.89 Persons encountering health services in other specified circumstances
CPT/HCPCS: 36415; 80053; 80076; 83735; 85025; 86618; 96360; 96361

== ENCOUNTER 2018-06-24 07:14 | Day surgery (SDC) | payer OTHER ==
[2018-06-24] MEDS ORDERED: FULVESTRANT 250 MG/5 ML SYRINGE IM ONE (08:00)
[2018-06-24] MEDS ORDERED: ZOLEDRONIC ACID 4 MG in SODIUM CHLORIDE 100 ML IVPB ONE (08:00)
[2018-06-24 09:23] LABS: BASO % 0.9 % (0-2.0); EOS % 1.7 % (0-4.5); HEMOGLOBIN 12.5 GM/dL (10.7-15.3); LYMPH % 20.3 % (8-40); MCH 29.7 pg (25.7-33.7); MCHC 34.8 g/dl (32.0-36.0); MEAN CELL VOLUME 85.2 fl (80-96); MEAN PLT VOLUME 7.4 fl (7.5-11.1); MONO % 8.9 % (3.8-10.2); NEUT % 68.2 % (42.8-82.8); PLATELET COUNT 234 K/MM3 (134-434); RBC 4.23 M/mm3 (3.60-5.2); RDW 13.7 % (11.6-15.6); WHITE BLOOD COUNT 4.1 K/mm3 (4.0-10.0)
[2018-06-24 09:50] LABS: ALBUMIN 3.9 g/dl (3.4-5.0); BILIRUBIN,DIRECT 0.1 mg/dL (0.0-0.2); BILIRUBIN,TOTAL 0.6 mg/dL (0.2-1); MAGNESIUM 2.3 mg/dL (1.8-2.4)
[2018-06-24 09:53] LABS: ALK PHOS 536 U/L (45-117); ANION GAP 5 MMOL/L (8-16); BILIRUBIN,TOTAL 0.7 mg/dL (0.2-1); BLOOD UREA NITROGEN 16 mg/dL (7-18); CALCIUM 9.2 mg/dL (8.5-10.1); CHLORIDE 104 mmol/L (98-107); CO2 29 mmol/L (21-32); GLUCOSE,RANDOM 110 mg/dL (74-106); POTASSIUM 4.4 mmol/L (3.5-5.1); SGOT/AST 36 U/L (15-37); SGPT/ALT 23 U/L (13-61); SODIUM 138 mmol/L (136-145)
[2018-06-24 15:52] VITALS: TEMP 98.1
[2018-06-24] MEDS ORDERED: PORTA CATH FLUSH 10 ML IVPUSH ONE (15:52)
[2018-06-24 15:54] VITALS: BP 120/70; PULSE 77
== END 2018-06-24 10:45 | disposition home or self-care (01) ==
LOC: JONCCHEMO 07:14 → J7W 10:02 → JONCCHEMO 10:45
PROVIDERS: ATTEND Internal Medicine Hematology & Oncology
PROC: 3E02305 Introduction of Other Antineoplastic into Muscle, Percutaneous Approach (ICD-10-PCS; principal; 2018-06-24)
PROC: 3E043GC Introduction of Other Therapeutic Substance into Central Vein, Percutaneous Approach (ICD-10-PCS; 2018-06-24)
DX: Z51.11 Encounter for antineoplastic chemotherapy (principal); C50.911 Malignant neoplasm of unspecified site of right female breast; C79.51 Secondary malignant neoplasm of bone
CPT/HCPCS: 36415; 80053; 80076; 83735; 85025; 96365; 96402; 96417; J3489; J9395

== ENCOUNTER 2018-07-15 06:41 | Inpatient (IN) | payer OTHER ==
--- NOTE | 2018-07-15 07:27 | PDOC ---
Attending Attestation - Resident Resident Name: MomojeffreyMagaly - HPI HPI: 07/15/18 16:04 Pt presents to the ED complaining of nausea and vomiting, generalized weakness and decreased appetite. History of breast CA with mets to the bone. Denies abdominal pain. Patient is scheduled to have chemo today--last radiation or chemo was 5 weeks ago. Also complaining of mild headache. Denies confusion. 07/15/18 16:07 - Physicial Exam PE: 07/15/18 16:22 Agree with resident exam. Patient is alert and oriented and in no acute distress. Lungs are clear. Abdomen soft, non tender, non distended without guarding or rebound. - Medical Decision Making 07/15/18 16:23 Pt presents to the ED complaining of nausea and vomiting with mild headache. Differential included mets to the brain, dehydration, gastroenteritis, less likely mets to the abdomen. Labs show evidence of hyponatremia. Will admit to medicine for continued IV hydration.
[2018-07-15] MEDS ORDERED: METOCLOPRAMIDE HCL INJECTION 10 MG/2 ML VIAL IVPUSH ONE (07:36)
[2018-07-15] MEDS ORDERED: METOCLOPRAMIDE HCL INJECTION 10 MG/2 ML VIAL ONE (07:44)
--- NOTE | 2018-07-15 07:45 | PDOC ---
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 The patient denies fever, diarrhea, chest pain or abdominal pain. She completed radiation 5 weeks ago and was scheduled to start chemotherapy today at 0830AM w/ Dr. Galvan. This is the patient's second round of chemotherapy, with the last round at approx 1 year ago. The daughter notes that the patient has had the symptoms of nausea and vomiting at the end of previous radiations and during chemotherapy, however this episode is not in closely associated with either. Additionally the patient has had a decrease in appetite for 2 days and headache for 3 days (initially frontal now occipital). Patient has no other complaints at bedside. Past History - Past Medical History Allergies/Adverse Reactions: Allergies Allergy/AdvReac Type Severity Reaction Status Date / Time No Known Drug Allergies Allergy Verified 02/15/18 22:35 Home Medications: Ambulatory Orders Alprazolam [Xanax] 1 mg PO HS 05/30/17 Gabapentin 300 mg PO TID 05/30/17 Lisinopril/Hydrochlorothiazide [Lisinopril-Hctz 10-12.5 mg Tab] 1 each PO DAILY 05/30/17 Metoprolol Succinate [Toprol Xl] 25 mg PO DAILY 05/30/17 Tramadol HCl 50 mg PO PRN 05/30/17 Oxycodone HCl/Acetaminophen [Oxycodon-Acetaminophen 7.5-325] 1 each PO Q4H PRN 02/05/18 Famotidine [Pepcid] 20 mg PO BID #60 tablet 02/21/18 Lactobacillus Acidophilus [Bacid -] 1 tab PO DAILY #30 tab 02/21/18 Amitriptyline HCl [Elavil -] 25 mg PO HS #30 tablet 05/13/18 Anemia: No Asthma: No Cancer: Yes (breast cancer left, bone mets) Cardiac Disorders: No CVA: No COPD: No CHF: No Dementia: No Diabetes: No GI Disorders: No Disorders: No HTN: Yes Hypercholesterolemia: No Liver Disease: No Seizures: No Thyroid Disease: No - Surgical History Abdominal Surgery: Yes Appendectomy: No Cardiac Surgery: No Cholecystectomy: Yes Lung Surgery: No Neurologic Surgery: No Orthopedic Surgery: No - Immunization History Immunization Up to Date: Yes - Suicide/Smoking/Psychosocial Hx Smoking History: Never smoked Have you smoked in the past 12 months: No Hx Alcohol Use: No Drug/Substance Use Hx: No Substance Use Type: None Hx Substance Use Treatment: No Review of Systems - Review of Systems Able to Perform ROS?: Yes Is the patient limited Hebrew proficient: No Constitutional: Yes: Chills. No: Diaphoresis, Fever HEENTM: No: Blurred Vision Respiratory: No: Cough, Orthopnea, Shortness of Breath Cardiac (ROS): No: Chest Pain, Lightheadedness, Palpitations, Syncope ABD/GI: Yes: Nausea, Vomiting. No: Constipated, Diarrhea : No: Dysuria, Hematuria, Incontinence Musculoskeletal: No: Back Pain, Gout, Muscle Weakness, Neck Pain Neurological: Yes: Headache. No: Numbness, Paresthesia, Tingling *Physical Exam - Vital Signs Last Vital Signs Temp Pulse Resp BP Pulse Ox 98.5 F 96 H 18 137/74 97 07/15/18 06:55 07/15/18 06:55 07/15/18 06:55 07/15/18 06:55 07/15/18 06:55 - Physical Exam Comments: 07/15/18 08:12 GENERAL: Awake, alert, and fully oriented, in no acute distress HEAD: No signs of trauma, normocephalic, atraumatic EYES: EOMI, sclera anicteric, conjunctiva clear ENT: oropharynx clear without exudates. Moist mucosa NECK: Normal ROM, supple LUNGS: No distress, speaks full sentences, clear to auscultation bilaterally HEART: Regular rate and rhythm, normal S1 and S2, no murmurs, rubs or gallops, peripheral pulses normal and equal bilaterally. ABDOMEN: Soft, nontender, normoactive bowel sounds. No guarding, no rebound. No masses EXTREMITIES : Normal inspection, Normal range of motion, no edema. No clubbing or cyanosis. NEUROLOGICAL: Cranial nerves II through XII grossly intact. 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 The patient denies fever, diarrhea, chest pain or abdominal pain. She completed radiation 5 weeks ago and was scheduled to start chemotherapy today at 0830AM w/ Dr. Galvan. This is the patient's second round of chemotherapy, with the last round at approx 1 year ago. The daughter notes that the patient has had the symptoms of nausea and vomiting at the end of previous radiations and during chemotherapy, however this episode is not in closely associated with either. Additionally the patient has had a decrease in appetite for 2 days and headache for 3 days (initially frontal now occipital). Patient has no other complaints at bedside. ED Course: consider infectious vs radiation side effects r/o brain met vs ACS cbc, cmp, head CT, EKG, ua 07/15/18 08:[address] Galvan, heme/onc who notes that patient's pain has been a problem and she has tried several pain management courses and is currently on ms contin 15 bid and neurontin. He would like patient to have chemotherapy by [facility] at 1900 as she was schedule for last night first round that she missed. Agrees with workup. cbc wnl slightly hyponatremic alk phos elevated from prior lab values. pending head CT 07/15/18 09:59 EKG: normal sinus rhythm HR 93, no interval abnormalities, narrow QRS, ST and T wave segments and morphology normal. 07/15/18 10:[address]: without acute findings. 07/15/18 10:47 Patient will likely need admission for hyponatremia and vomiting in the setting of metastatic cancer. 07/15/18 12:25 Patient admitted to medicine service. *DC/Admit/Observation/Transfer Diagnosis at time of Disposition: Hyponatremia, Vomiting - Discharge Dispostion Condition at time of disposition: Fair Decision to Admit order: Yes - Referrals Referrals: Brayden Griffith MD [Primary Care Provider] - - Patient Instructions - Post Discharge Activity
[2018-07-15 08:19] LABS: BASO % 0.6 % (0-2.0); EOS % 0.7 % (0-4.5); HEMATOCRIT 34.3 % (32.4-45.2); HEMOGLOBIN 11.8 GM/dL (10.7-15.3); LYMPH % 10.4 % (8-40); MCH 27.7 pg (25.7-33.7); MCHC 34.5 g/dl (32.0-36.0); MEAN CELL VOLUME 80.3 fl (80-96); MEAN PLT VOLUME 6.7 fl (7.5-11.1); MONO % 6.8 % (3.8-10.2); NEUT % 81.5 % (42.8-82.8); PLATELET COUNT 234 K/MM3 (134-434); RBC 4.27 M/mm3 (3.60-5.2); RDW 13.1 % (11.6-15.6); WHITE BLOOD COUNT 5.9 K/mm3 (4.0-10.0)
[2018-07-15 08:36] LABS: ALBUMIN 4.2 g/dl (3.4-5.0); ALK PHOS 992 U/L (45-117); ANION GAP 10 MMOL/L (8-16); BILIRUBIN,TOTAL 0.4 mg/dL (0.2-1); BLOOD UREA NITROGEN 15 mg/dL (7-18); CALCIUM 8.5 mg/dL (8.5-10.1); CHLORIDE 93 mmol/L (98-107); CO2 25 mmol/L (21-32); GLUCOSE,RANDOM 124 mg/dL (74-106); POTASSIUM 4.6 mmol/L (3.5-5.1); SGOT/AST 100 U/L (15-37); SGPT/ALT 42 U/L (13-61); SODIUM 128 mmol/L (136-145); TOT PROT 8.2 g/dl (6.4-8.2)
[2018-07-15 08:58] LABS: EPI CELLS 5.7 /HPF (0-5); URINE APPEARANCE CLEAR; URINE BACTERIA 3.9 /hpf (NEGATIVE); URINE BILIRUBIN NEGATIVE (NEGATIVE); URINE CASTS 70 /hpf (0-8); URINE COLOR DK YELLOW; URINE GLUCOSE (UA) NEGATIVE (NEGATIVE); URINE KETONE TRACE (NEGATIVE); URINE LEUK ESTERASE NEGATIVE (NEGATIVE); URINE NITRITE NEGATIVE (NEGATIVE); URINE PROTEIN 1+ (NEGATIVE); URINE RBC 6 /hpf (0-4); URINE WBC 7 /hpf (0-5)
[2018-07-15] MEDS ORDERED: FAMOTIDINE 20 MG/50 ML IVPB 20 MG/50 ML MG IVPB ONE ×2 (11:18→12:23)
[2018-07-15] MEDS ORDERED: SODIUM CHLORIDE 1,000 ML IV SCH (11:30)
--- NOTE | 2018-07-15 11:47 | EKG ---
Test Reason : Blood Pressure : / mmHG Vent. Rate : 093 BPM Atrial Rate : 093 BPM P-R Int : 132 ms QRS Dur : 098 ms QT Int : 346 ms P-R-T Axes : 045 044 056 degrees QTc Int : 430 ms NORMAL SINUS RHYTHM NORMAL ECG WHEN COMPARED WITH ECG OF 16-FEB-2018 14:55, PREMATURE VENTRICULAR COMPLEXES ARE NO LONGER PRESENT Confirmed by KING BUTTERFIELD MD ([id number]) on 07/15/2018 11:47:15 AM Referred By: Confirmed By:KING BUTTERFIELD MD
--- NOTE | 2018-07-15 12:23 | HP ---
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 The patient denies fever, diarrhea, chest pain or abdominal pain. She completed radiation 5 weeks ago and was scheduled to start chemotherapy today at 0830AM w/ Dr. Galvan. This is the patient's second round of chemotherapy, with the last round at approx 1 year ago. The daughter notes that the patient has had the symptoms of nausea and vomiting at the end of previous radiations and during chemotherapy, however this episode is not in closely associated with either. Additionally the patient has had a decrease in appetite for 2 days and headache for 3 days (initially frontal now occipital). Patient has no other complaints at bedside. Pt examined by me in ER Pt received Faslodex about 2 weeks ago. She had vomiting early this AM- with nausea and epigastric pain States she has "burning " in epigastrium No loose stools, had a bm today She received Reglan, iv fluids and Pepcid in ER and feels better Was scheduled for chemo today c/o headaches and right sided neck pain Has numbness to face whic Brain MRI was negative --she follows Neurology and is on Neurontin Has bone pain in left leg, back History Source: Patient Limitations to Obtaining History: No Limitations - Past Medical History Cardiovascular: Yes: HTN Gastrointestinal: Yes: GERD Heme/Onc: Yes: Cancer (breast with bone mets- s/p RT last year) Psych: Yes: Anxiety - Past Surgical History Past Surgical History: Yes: Cholecystectomy, Hysterectomy - Smoking History Smoking history: Never smoked Have you smoked in the past 12 months: No - Alcohol/Substance Use Hx Alcohol Use: No History of Substance Use: reports: None - Social History ADL: Independent History of Recent Travel: Yes (just returned from [facility] 01/19) Home Medications - Allergies Allergies/Adverse Reactions: Allergies Allergy/AdvReac Type Severity Reaction Status Date / Time No Known Drug Allergies Allergy Verified 02/15/18 22:35 - Home Medications Home Medications: Ambulatory Orders Alprazolam [Xanax] 1 mg PO HS 05/30/17 Gabapentin 300 mg PO TID 05/30/17 Lisinopril/Hydrochlorothiazide [Lisinopril-Hctz 10-12.5 mg Tab] 1 each PO DAILY 05/30/17 Metoprolol Succinate [Toprol Xl] 25 mg PO DAILY 05/30/17 Tramadol HCl 50 mg PO PRN 05/30/17 Oxycodone HCl/Acetaminophen [Oxycodon-Acetaminophen 7.5-325] 1 each PO Q4H PRN 02/05/18 Famotidine [Pepcid] 20 mg PO BID #60 tablet 02/21/18 Lactobacillus Acidophilus [Bacid -] 1 tab PO DAILY #30 tab 02/21/18 Amitriptyline HCl [Elavil -] 25 mg PO HS #30 tablet 05/13/18 Family Disease History - Family Disease History Family Disease History: CA: Brother, Sister Review of Systems - Review of Systems Constitutional: denies: Chills, Fever, Weakness Gastrointestinal: reports: Abdominal Pain, Nausea. denies: Constipation, Diarrhea Physical Examination Vital Signs: Vital Signs Temperature 98.5 F 07/15/18 06:55 Pulse Rate 96 H 07/15/18 06:55 Respiratory Rate 18 07/15/18 06:55 Blood Pressure 137/74 07/15/18 06:55 O2 Sat by Pulse Oximetry (%) 97 07/15/18 07:14 Constitutional: Yes: No Distress, Calm Neck: Yes: Other (neck pain) Cardiovascular: Yes: Regular Rate and Rhythm Respiratory: Yes: CTA Bilaterally Gastrointestinal: Yes: Normal Bowel Sounds, Soft. No: Tenderness Edema: No Psychiatric: Yes: Alert, Oriented Labs: CBC, BMP 07/15/18 07:58 07/15/18 07:58 Imaging - Results Cat Scan: Report Reviewed (no mets) EKG: Image Reviewed (NSR) Problem List - Problems (1) Hyponatremia Code(s): E87.1 - HYPO-OSMOLALITY AND HYPONATREMIA (2) Vomiting Code(s): R11.10 - VOMITING, UNSPECIFIED (3) Breast cancer, left breast Code(s): C50.912 - MALIGNANT NEOPLASM OF UNSPECIFIED SITE OF LEFT FEMALE BREAST Qualifiers: Breast location: lower inner quadrant of breast Patient sex: female Assessment/Plan PLAN Vomiting maybe due to Faslodex or gastritis keep NPO for now IV fluids IV zofran prn Protonix iv Oncology eval DVT prophylaxis-- Heparin sc continue with meds
[2018-07-15] MEDS ORDERED: ONDANSETRON 4 MG/2 ML VIAL IVPUSH PRN (12:40)
[2018-07-15] MEDS ORDERED: oxyCODONE HCL 5 MG TABLET PO PRN (13:12)
[2018-07-15] MEDS ORDERED: GABAPENTIN 100 MG CAPSULE (FP) ONE (15:01)
[2018-07-15] MEDS: GABAPENTIN 300 MG CAPSULE (FP) PO SCH ×2 (15:10→23:02)
[2018-07-15] MEDS ORDERED: PATIENT'S OWN MEDICATION (NON-FORMULARY) (Alprazolam [Xanax] 1 MG) PO SCH (22:00)
[2018-07-15] MEDS ORDERED: ALPRAZolam 0.25 MG TABLET ONE (22:53)
[2018-07-15] MEDS: AMITRIPTYLINE HCL 25 MG TABLET (FP) PO SCH (23:02)
[2018-07-15] MEDS: HEPARIN NA (PORCINE) 5,000 UNITS/ML 1ML VIAL SQ SCH (23:02)
[2018-07-15] MEDS: ALPRAZolam 2 MG TABLET PO SCH (23:03)
--- NOTE | 2018-07-15 23:03 | CONSULT ---
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 The patient denies fever, diarrhea, chest pain or abdominal pain. also with chin numbness --was seen by neurology amd mri brain w/o contrast was negative - Past Medical History Cardiovascular: Yes: HTN Gastrointestinal: Yes: GERD Heme/Onc: Yes: Cancer (breast with bone mets- s/p RT last year) Psych: Yes: Anxiety - Past Surgical History Past Surgical History: Yes: Cholecystectomy, Hysterectomy - Smoking History Smoking history: Never smoked - Social History ADL: Independent History of Recent Travel: Yes (just returned from [facility] 01/19) Home Medications - Allergies Allergies/Adverse Reactions: Allergies Allergy/AdvReac Type Severity Reaction Status Date / Time No Known Drug Allergies Allergy Verified 02/15/18 22:35 - Home Medications Home Medications: Ambulatory Orders Alprazolam [Xanax] 1 mg PO HS 05/30/17 Gabapentin 300 mg PO TID 05/30/17 Lisinopril/Hydrochlorothiazide [Lisinopril-Hctz 10-12.5 mg Tab] 1 each PO DAILY 05/30/17 Metoprolol Succinate [Toprol Xl] 25 mg PO DAILY 05/30/17 Tramadol HCl 50 mg PO PRN 05/30/17 Oxycodone HCl/Acetaminophen [Oxycodon-Acetaminophen 7.5-325] 1 each PO Q4H PRN 02/05/18 Famotidine [Pepcid] 20 mg PO BID #60 tablet 02/21/18 Lactobacillus Acidophilus [Bacid -] 1 tab PO DAILY #30 tab 02/21/18 Amitriptyline HCl [Elavil -] 25 mg PO HS #30 tablet 05/13/18 Family Disease History - Family Disease History Family Disease History: CA: Brother, Sister Review of Systems - Review of Systems Constitutional: denies: Chills, Fever, Weakness Gastrointestinal: reports: Abdominal Pain, Nausea. denies: Constipation, Diarrhea Physical Examination Vital Signs: Vital Signs Temperature 98.5 F 07/15/18 06:55 Pulse Rate 96 H 07/15/18 06:55 Respiratory Rate 18 07/15/18 06:55 Blood Pressure 137/74 07/15/18 06:55 O2 Sat by Pulse Oximetry (%) 97 07/15/18 07:14 Constitutional: Yes: No Distress, Calm Neck: Yes: Other (neck pain) Cardiovascular: Yes: Regular Rate and Rhythm Respiratory: Yes: CTA Bilaterally Gastrointestinal: Yes: Normal Bowel Sounds, Soft. No: Tenderness Edema: No Psychiatric: Yes: Alert, Oriented Labs: CBC, BMP 07/15/18 07:58 07/15/18 07:58 Imaging - Results Cat Scan: Report Reviewed (no mets) EKG: Image Reviewed (NSR) Problem List - Problems (1) Hyponatremia Code(s): E87.1 - HYPO-OSMOLALITY AND HYPONATREMIA (2) Vomiting Code(s): R11.10 - VOMITING, UNSPECIFIED (3) Breast cancer, left breast Code(s): C50.912 - MALIGNANT NEOPLASM OF UNSPECIFIED SITE OF LEFT FEMALE BREAST Qualifiers: Breast location: lower inner quadrant of breast Patient sex: female A/P 68 y/o female with h/o metastatic breast cancer , s/p several lines of therapy and RT , was due to start taxol weekly, comes in with vomiting, headache CT head noncon is neg. will consider MRI brain with and without contrast hyponatremia--? dehydration ? SIADH will discuss with primary team
[2018-07-16] MEDS: GABAPENTIN 300 MG CAPSULE (FP) PO SCH ×3 (05:22→21:42)
[2018-07-16 10:00] LABS: HEMATOCRIT 31.6 % (32.4-45.2); HEMOGLOBIN 10.6 GM/dL (10.7-15.3); MCH 27.3 pg (25.7-33.7); MCHC 33.7 g/dl (32.0-36.0); MEAN PLT VOLUME 6.7 fl (7.5-11.1); PLATELET COUNT 219 K/MM3 (134-434); WHITE BLOOD COUNT 4.1 K/mm3 (4.0-10.0)
[2018-07-16] MEDS ORDERED: PATIENT'S OWN MEDICATION (NON-FORMULARY) (Lisinopril/Hydrochlorothiazide [Lisinopril-Hctz PO SCH (10:00)
[2018-07-16] MEDS: metoPROLOL SUCCINATE 25 MG TAB.SR.24H (FP) PO SCH (10:16)
[2018-07-16] MEDS: HEPARIN NA (PORCINE) 5,000 UNITS/ML 1ML VIAL SQ SCH ×2 (10:17→21:42)
[2018-07-16] MEDS: HYDROCHLOROTHIAZIDE 12.5 MG CAPSULE (FP) PO SCH (10:17)
[2018-07-16] MEDS: PANTOPRAZOLE SODIUM 40 MG VIAL IVPUSH SCH (10:17)
[2018-07-16] MEDS: LACTOBACILLUS ACIDOPHILUS 1 TABLET PO SCH (10:19)
[2018-07-16] MEDS: LISINOPRIL 10 MG TABLET (FP) PO SCH (10:20)
[2018-07-16 11:07] LABS: ANION GAP 9 MMOL/L (8-16); BLOOD UREA NITROGEN 12 mg/dL (7-18); CALCIUM 8.5 mg/dL (8.5-10.1); CHLORIDE 100 mmol/L (98-107); CO2 25 mmol/L (21-32); GLUCOSE,RANDOM 107 mg/dL (74-106); POTASSIUM 4.2 mmol/L (3.5-5.1); SODIUM 134 mmol/L (136-145)
--- NOTE | 2018-07-16 12:09 | PN ---
Progress Note (short form) - Note Progress Note: pt seen/ examined chart reviewed awake/ comfortable feels better decreased nausea tolerating food denies headache oncology consult noted/ appreciated mri ordered Vital Signs Temp 98.5 F 07/16/18 09:39 Pulse 104 H 07/16/18 09:39 Resp 17 07/16/18 09:39 BP 145/80 07/16/18 09:39 Pulse Ox 99 07/16/18 07:00 Intake & Output 07/15/18 07/16/18 07/16/18 23:59 11:59 23:59 Intake Total 0 250 Balance 0 250 Weight 149 lb 6.4 oz Intake: IV 0 250 Normal Saline - 1,000 ml 0 250 @ 42 mls/hr IV ASDIR [facility] Rx#:[id number] Other: Voiding Method Toilet Bowel Movement No Height 5 ft 2 in Body Mass Index (BMI) 27.3 Weight Measurement Method Standing Scale Active Medications Alprazolam (Xanax -) 1 mg PO HS [facility] Last Admin: 07/15/18 23:03 Dose: 1 mg Amitriptyline HCl (Elavil -) 25 mg PO HS [facility] Last Admin: 07/15/18 23:02 Dose: 25 mg Gabapentin (Neurontin -) 300 mg PO TID [facility] Last Admin: 07/16/18 05:22 Dose: 300 mg Heparin Sodium (Porcine) (Heparin -) 5,000 unit SQ BID [facility] Last Admin: 07/16/18 10:17 Dose: 5,000 unit Hydrochlorothiazide (Hctz -) 12.5 mg PO DAILY [facility] Last Admin: 07/16/18 10:17 Dose: 12.5 mg Sodium Chloride (Normal Saline -) 1,000 mls @ 42 mls/hr IV ASDIR [facility] Last Admin: 07/15/18 12:31 Dose: 42 mls/hr Dextrose/Sodium Chloride (D5-Ns -) 1,000 mls @ 75 mls/hr IV ASDIR [facility] Lactobacillus Acidophilus (Bacid -) 1 tab PO DAILY [facility] Last Admin: 07/16/18 10:19 Dose: 1 tab Lisinopril (Prinivil) 10 mg PO DAILY [facility] Last Admin: 07/16/18 10:20 Dose: 10 mg Metoprolol Succinate (Toprol Xl -) 25 mg PO DAILY [facility] Last Admin: 07/16/18 10:16 Dose: 25 mg Ondansetron HCl (Zofran Injection) 4 mg IVPUSH Q4H PRN PRN Reason: NAUSEA AND/OR VOMITING Oxycodone HCl (Roxicodone -) 5 mg PO Q6H PRN PRN Reason: PAIN LEVEL 6-10 Pantoprazole Sodium (Protonix Iv) 40 mg IVPUSH DAILY [facility] Last Admin: 07/16/18 10:17 Dose: 40 mg CBC, BMP 07/16/18 09:45 07/16/18 09:45 ct head -ve Physical Examination Constitutional: Yes: No Distress, Calm and comfortable. Neck: Yes: supple Cardiovascular: Yes: Regular Rate and Rhythm Respiratory: Yes: CTA Bilaterally Gastrointestinal: Yes: Normal Bowel Sounds, Soft. No: Tenderness Edema: No Psychiatric: Yes: Alert, Oriented Imaging - Results Cat Scan: Report Reviewed (no mets) EKG: Image Reviewed (NSR) Problem List - Problems (1) Hyponatremia Code(s): E87.1 - HYPO-OSMOLALITY AND HYPONATREMIA (2) Vomiting Code(s): R11.10 - VOMITING, UNSPECIFIED (3) Breast cancer, left breast Code(s): C50.912 - MALIGNANT NEOPLASM OF UNSPECIFIED SITE OF LEFT FEMALE BREAST Qualifiers: Breast location: lower inner quadrant of breast Patient sex: female Assessment/Plan Vomiting better IV fluids IV zofran prn Protonix iv Oncology eval noted DVT prophylaxis-- Heparin sc continue with meds f/u labs cxr also ordered will follow will discuss with / Isabel
[2018-07-16] MEDS: DEXTROSE 5%-NORMAL SALINE 1,000 ML IV SCH (13:00)
--- NOTE | 2018-07-16 19:44 | PN ---
Progress Note (short form) - Note Progress Note: Patinet seen and examined Feels better AFVSS Cor: RSR, No murmurs, No gallops Lungs: Clear to P&A Abd: Soft, Normal bowel sounds, No organomegaly Ext:No significant edema Labs/Meds reviewed A/P 68 y/o patient with metastatic breast cancer, s/p several lines of therapy, comes in with numbness over the chin, headaches, vmnting MRI brain with contrast shows nonspecific dural enhancement --? neoplastic.Also C1 articular mass ? neoplastic versus inflammatory Will get neuro consult/ MRI C spine and rad-onc /neurosurgery based on w/u
[2018-07-16] MEDS: AMITRIPTYLINE HCL 25 MG TABLET (FP) PO SCH (21:42)
[2018-07-16] MEDS: ALPRAZolam 2 MG TABLET PO SCH (21:42)
[2018-07-17] MEDS: GABAPENTIN 300 MG CAPSULE (FP) PO SCH ×3 (06:17→21:52)
[2018-07-17 08:19] LABS: ALBUMIN 3.3 g/dl (3.4-5.0); ALK PHOS 751 U/L (45-117); ANION GAP 8 MMOL/L (8-16); BILIRUBIN,TOTAL 0.4 mg/dL (0.2-1); BLOOD UREA NITROGEN 12 mg/dL (7-18); CALCIUM 8.2 mg/dL (8.5-10.1); CHLORIDE 100 mmol/L (98-107); CO2 23 mmol/L (21-32); CREATININE 0.9 mg/dL (0.55-1.3); GLUCOSE,RANDOM 98 mg/dL (74-106); POTASSIUM 3.9 mmol/L (3.5-5.1); SGOT/AST 89 U/L (15-37); SGPT/ALT 67 U/L (13-61); SODIUM 132 mmol/L (136-145); TOT PROT 6.5 g/dl (6.4-8.2)
[2018-07-17 08:22] LABS: BASO % 1.9 % (0-2.0); EOS % 2.2 % (0-4.5); HEMATOCRIT 29.3 % (32.4-45.2); LYMPH % 23.3 % (8-40); MCH 27.6 pg (25.7-33.7); MCHC 34.1 g/dl (32.0-36.0); MEAN CELL VOLUME 81.1 fl (80-96); MEAN PLT VOLUME 6.9 fl (7.5-11.1); NEUT % 61.6 % (42.8-82.8); PLATELET COUNT 221 K/MM3 (134-434); RBC 3.61 M/mm3 (3.60-5.2); RDW 13.1 % (11.6-15.6); WHITE BLOOD COUNT 3.8 K/mm3 (4.0-10.0)
[2018-07-17] MEDS: LISINOPRIL 10 MG TABLET (FP) PO SCH (10:08)
[2018-07-17] MEDS: PANTOPRAZOLE SODIUM 40 MG VIAL IVPUSH SCH (10:08)
[2018-07-17] MEDS: HEPARIN NA (PORCINE) 5,000 UNITS/ML 1ML VIAL SQ SCH ×2 (10:08→21:56)
[2018-07-17] MEDS: metoPROLOL SUCCINATE 25 MG TAB.SR.24H (FP) PO SCH (10:08)
[2018-07-17] MEDS: HYDROCHLOROTHIAZIDE 12.5 MG CAPSULE (FP) PO SCH (10:08)
[2018-07-17] MEDS: LACTOBACILLUS ACIDOPHILUS 1 TABLET PO SCH (10:10)
--- NOTE | 2018-07-17 11:46 | CON.NEURO ---
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 The patient denies fever, diarrhea, chest pain or abdominal pain. She completed radiation 5 weeks ago and was scheduled to start chemotherapy today at 0830AM w/ Dr. Galvan. This is the patient's second round of chemotherapy, with the last round at approx 1 year ago. The daughter notes that the patient has had the symptoms of nausea and vomiting at the end of previous radiations and during chemotherapy, however this episode is not in closely associated with either. Additionally the patient has had a decrease in appetite for 2 days and headache for 3 days (initially frontal now occipital). Patient has no other complaints at bedside. as per pt she has noted R sided neck pain x 3 weeks as well as numbness of "teeth and lower chin " x 3 weeks MRI BRAIN IMPRESSION: Nonspecific diffuse nonspecific smooth dural thickening is noted along the cerebral convexities bilaterally - ? secondary to etiologies such as recent spinal tap with resultant intracranial hypotension, inflammatory/ infectious disease or neoplastic disease. The partially imaged upper cervical spine demonstrates nonspecific altered marrow signal intensity within the right C1 articular mass - ? representing marrow edema secondary to an arthritis versus possible neoplastic disease. There is also a small associated right C1- C2 joint effusion with synovial enhancement. Possible similar although less prominent altered marrow signal intensity is noted within the left C1 articular mass. Additional evaluation utilizing dedicated MRI and CT studies of the cervical spine is suggested. Mild bilateral frontal sinus mucosal thickening is noted. - Past Medical History Cardio/Vascular: Yes: HTN Gastrointestinal: Yes: GERD Psych: Yes: Anxiety - Past Surgical History Past Surgical History: Yes: Cholecystectomy, Hysterectomy - Alcohol/Substance Use Hx Alcohol Use: No History of Substance Use: reports: None - Smoking History Smoking history: Never smoked Have you smoked in the past 12 months: No - Social History Usual Living Arrangement: With Child ADL: Independent History of Recent Travel: Yes (just returned from [facility] 01/19) Home Medications - Allergies Allergies/Adverse Reactions: Allergies Allergy/AdvReac Type Severity Reaction Status Date / Time No Known Drug Allergies Allergy Verified 02/15/18 22:35 - Home Medications Home Medications: Ambulatory Orders Alprazolam [Xanax] 1 mg PO HS 05/30/17 Gabapentin 300 mg PO TID 05/30/17 Lisinopril/Hydrochlorothiazide [Lisinopril-Hctz 10-12.5 mg Tab] 1 each PO DAILY 05/30/17 Metoprolol Succinate [Toprol Xl] 25 mg PO DAILY 05/30/17 Tramadol HCl 50 mg PO PRN 05/30/17 Oxycodone HCl/Acetaminophen [Oxycodon-Acetaminophen 7.5-325] 1 each PO Q4H PRN 02/05/18 Famotidine [Pepcid] 20 mg PO BID #60 tablet 02/21/18 Lactobacillus Acidophilus [Bacid -] 1 tab PO DAILY #30 tab 02/21/18 Amitriptyline HCl [Elavil -] 25 mg PO HS #30 tablet 05/13/18 Family Disease History - Family Disease History Family Disease History: CA: Brother, Sister Physical Exam-Neuro Vital Signs: Vital Signs Temperature 98.1 F 07/17/18 09:50 Pulse Rate 84 07/17/18 09:50 Respiratory Rate 20 07/17/18 09:50 Blood Pressure 133/64 07/17/18 09:50 O2 Sat by Pulse Oximetry (%) 99 07/17/18 06:41 Constitutional: Yes: Well Nourished, No Distress Labs: CBC, BMP 07/17/18 07:00 07/17/18 07:00 - Neuro Exam Level Of Consciousness: Yes: Alert (awake, alert, pupils symmetric, no HORNERS, EOMI, no facial, dec sensation mentalis area BL, no focal weakness, reflxes Patellar 3+, achilles 1+, plantars down) Imaging - Results MRI: Report Reviewed, Image Reviewed Problem List - Problems (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 The patient denies fever, diarrhea, chest pain or abdominal pain. She completed radiation 5 weeks ago and was scheduled to start chemotherapy today at 0830AM w/ Dr. Galvan. This is the patient's second round of chemotherapy, with the last round at approx 1 year ago. The daughter notes that the patient has had the symptoms of nausea and vomiting at the end of previous radiations and during chemotherapy, however this episode is not in closely associated with either. Additionally the patient has had a decrease in appetite for 2 days and headache for 3 days (initially frontal now occipital). Patient has no other complaints at bedside. as per pt she has noted R sided neck pain x 3 weeks as well as numbness of "teeth and lower chin " x 3 weeks MRI BRAIN IMPRESSION: Nonspecific diffuse nonspecific smooth dural thickening is noted along the cerebral convexities bilaterally - ? secondary to etiologies such as recent spinal tap with resultant intracranial hypotension, inflammatory/ infectious disease or neoplastic disease. The partially imaged upper cervical spine demonstrates nonspecific altered marrow signal intensity within the right C1 articular mass - ? representing marrow edema secondary to an arthritis versus possible neoplastic disease. There is also a small associated right C1- C2 joint effusion with synovial enhancement. Possible similar although less prominent altered marrow signal intensity is noted within the left C1 articular mass. Additional evaluation utilizing dedicated MRI and CT studies of the cervical spine is suggested. Mild bilateral frontal sinus mucosal thickening is noted. 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
--- NOTE | 2018-07-17 12:32 | PN ---
Progress Note (short form) - Note Progress Note: C/o headaches- better with pain meds and rt sided neck pain no radiation of pain to right arm Able to move her head and neck Family at bedside denies getting spinal tap recently Vital Signs - 24 hr 07/16/18 07/16/18 07/16/18 14:00 15:23 18:15 Temperature 99.7 F H 99.0 F Pulse Rate 88 81 Respiratory 18 18 18 Rate Blood Pressure 134/69 136/76 O2 Sat by Pulse 99 Oximetry (%) 07/16/18 07/16/18 07/17/18 20:08 22:05 02:00 Temperature 97.9 F 98.7 F Pulse Rate 80 82 Respiratory 18 17 18 Rate Blood Pressure 156/80 135/69 O2 Sat by Pulse 99 Oximetry (%) 07/17/18 07/17/18 07/17/18 06:41 07:00 09:50 Temperature 98.5 F 98.1 F Pulse Rate 82 84 Respiratory 18 20 Rate Blood Pressure 117/67 133/64 O2 Sat by Pulse 99 Oximetry (%) Current Medications Generic Name Dose Route Start Last Admin Trade Name Freq PRN Reason Stop Dose Admin Alprazolam 1 mg 07/15/18 22:00 07/16/18 21:42 Xanax - PO 1 mg HS [facility] Administration Amitriptyline HCl 25 mg 07/15/18 22:00 07/16/18 21:42 Elavil - PO 25 mg HS [facility] Administration Gabapentin 300 mg 07/15/18 14:00 07/17/18 06:17 Neurontin - PO 300 mg TID [facility] Administration Heparin Sodium (Porcine) 5,000 unit 07/15/18 22:00 07/17/18 10:08 Heparin - SQ 5,000 unit BID [facility] Administration Hydrochlorothiazide 12.5 mg 07/16/18 10:00 07/17/18 10:08 Hctz - PO 12.5 mg DAILY [facility] Administration Dextrose/Sodium Chloride 1,000 mls @ 75 mls/hr 07/15/18 12:45 07/16/18 13:00 D5-Ns - IV 75 mls/hr ASDIR [facility] Administration Lactobacillus Acidophilus 1 tab 07/16/18 10:00 07/17/18 10:10 Bacid - PO 1 tab DAILY [facility] Administration Lisinopril 10 mg 07/16/18 10:00 07/17/18 10:08 Prinivil PO 10 mg DAILY [facility] Administration Metoprolol Succinate 25 mg 07/16/18 10:00 07/17/18 10:08 Toprol Xl - PO 25 mg DAILY [facility] Administration Ondansetron HCl 4 mg 07/15/18 12:40 Zofran Injection IVPUSH Q4H PRN NAUSEA AND/OR VOMITING Oxycodone HCl 5 mg 07/17/18 11:18 Roxicodone - PO Q4H PRN PAIN LEVEL 6-10 Pantoprazole Sodium 40 mg 07/16/18 10:00 07/17/18 10:08 Protonix Iv IVPUSH 40 mg DAILY [facility] Administration Laboratory Results - last 24 hr 07/17/18 07/17/18 07:00 07:00 WBC 3.8 L RBC 3.61 Hgb 10.0 L Hct 29.3 L MCV 81.1 MCH 27.6 MCHC 34.1 RDW 13.1 Plt Count 221 MPV 6.9 L Absolute Neuts (auto) 2.4 Neutrophils % 61.6 D Lymphocytes % 23.3 D Monocytes % 11.0 H Eosinophils % 2.2 D Basophils % 1.9 D Nucleated RBC % 0 Sodium 132 L Potassium 3.9 Chloride 100 Carbon Dioxide 23 Anion Gap 8 BUN 12 Creatinine 0.9 Creat Clearance w eGFR 62.64 Random Glucose 98 Calcium 8.2 L Total Bilirubin 0.4 AST 89 H ALT 67 H Alkaline Phosphatase 751 H Total Protein 6.5 Albumin 3.3 L s1 S2 RRR Tender rt side of neck , at occipital region no LNE Lungs clear Abd- soft, NT no edema PLAN spoke with Oncology today - Dr Hall-- recommending MRI C spine with emmanuel- MRI barin noted-- ? dural enhancement , C1 mass\ pain control as needed check labs no further GI symptoms Neurology eval continue with meds iv fluids Problem List - Problems (1) Hyponatremia Code(s): E87.1 - HYPO-OSMOLALITY AND HYPONATREMIA (2) Vomiting Code(s): R11.10 - VOMITING, UNSPECIFIED (3) Breast cancer, left breast Code(s): C50.912 - MALIGNANT NEOPLASM OF UNSPECIFIED SITE OF LEFT FEMALE BREAST Qualifiers: Breast location: lower inner quadrant of breast Patient sex: female
[2018-07-17] MEDS: DEXTROSE 5%-NORMAL SALINE 1,000 ML IV SCH ×2 (12:45→15:31)
[2018-07-17] MEDS: oxyCODONE HCL 5 MG TABLET PO PRN ×2 (12:48→23:36)
[2018-07-17 13:27] LABS: ANISOCYTOSIS 2+; MACROCYTOSIS 0; PLATELET ESTIMATE NORMAL
[2018-07-17 15:07] VITALS: BMI 27.2
--- NOTE | 2018-07-17 18:31 | PN ---
Progress Note (short form) - Note Progress Note: Patient seen in follow up. No new complaints. Headache improved - complaining now only of l sided neck pain. No significant events overnight. Inpatient Meds reviewed. Current Medications Generic Name Dose Route Start Last Admin Trade Name Freq PRN Reason Stop Dose Admin Alprazolam 1 mg 07/15/18 22:00 07/16/18 21:42 Xanax - PO 1 mg HS [facility] Administration Amitriptyline HCl 25 mg 07/15/18 22:00 07/16/18 21:42 Elavil - PO 25 mg HS [facility] Administration Gabapentin 300 mg 07/15/18 14:00 07/17/18 14:37 Neurontin - PO 300 mg TID [facility] Administration Heparin Sodium (Porcine) 5,000 unit 07/15/18 22:00 07/17/18 10:08 Heparin - SQ 5,000 unit BID [facility] Administration Hydrochlorothiazide 12.5 mg 07/16/18 10:00 07/17/18 10:08 Hctz - PO 12.5 mg DAILY [facility] Administration Dextrose/Sodium Chloride 1,000 mls @ 75 mls/hr 07/15/18 12:45 07/17/18 15:31 D5-Ns - IV 75 mls/hr ASDIR [facility] Administration Lactobacillus Acidophilus 1 tab 07/16/18 10:00 07/17/18 10:10 Bacid - PO 1 tab DAILY [facility] Administration Lisinopril 10 mg 07/16/18 10:00 07/17/18 10:08 Prinivil PO 10 mg DAILY [facility] Administration Metoprolol Succinate 25 mg 07/16/18 10:00 07/17/18 10:08 Toprol Xl - PO 25 mg DAILY [facility] Administration Ondansetron HCl 4 mg 07/15/18 12:40 Zofran Injection IVPUSH Q4H PRN NAUSEA AND/OR VOMITING Oxycodone HCl 5 mg 07/17/18 11:18 07/17/18 12:48 Roxicodone - PO 5 mg Q4H PRN Administration PAIN LEVEL 6-10 Pantoprazole Sodium 40 mg 07/16/18 10:00 07/17/18 10:08 Protonix Iv IVPUSH 40 mg DAILY [facility] Administration On Examination: Last Vital Signs Temp Pulse Resp BP Pulse Ox 98.1 F 84 20 133/64 98 07/17/18 09:50 07/17/18 09:50 07/17/18 09:50 07/17/18 09:50 07/17/18 10:00 General: In no acute distress, lying comfortably in bed. Extremities: No pallor or icterus. No pedal edema. No palpable lymphadenopathy. CVS: S1, S2, regular, no gallop or murmur. Chest: good air entry bilaterally, clear Abdomen: Non-distended, non-tender, no palpable organomegaly. Neuro: Alert, oriented, non-focal. Labs: CBC, BMP 07/17/18 07:00 07/17/18 07:00 Assessment. Metastatic breast cancer, s/p several lines of therapy, presenting with headache , nausea, neck pain. MRI brain with contrast shows nonspecific dural enhancement --?carcinomatosis. Also C1 articular mass - neoplastic versus inflammatory. Presenting symptoms improved. Appreciate input neurology. Spinal tap Thursday. MRI neck recommended. Will follow.
[2018-07-17] MEDS ORDERED: PT OWN MED DRAWER 7, Y5N ONE (20:40)
[2018-07-17] MEDS: AMITRIPTYLINE HCL 25 MG TABLET (FP) PO SCH (21:52)
[2018-07-17] MEDS: ALPRAZolam 2 MG TABLET PO SCH (21:53)
[2018-07-18] MEDS: oxyCODONE HCL 5 MG TABLET PO PRN (02:19)
[2018-07-18] MEDS: GABAPENTIN 300 MG CAPSULE (FP) PO SCH ×3 (06:22→21:50)
[2018-07-18] MEDS: HYDROCHLOROTHIAZIDE 12.5 MG CAPSULE (FP) PO SCH (09:09)
[2018-07-18] MEDS: PANTOPRAZOLE SODIUM 40 MG VIAL IVPUSH SCH (09:09)
[2018-07-18] MEDS: DEXTROSE 5%-NORMAL SALINE 1,000 ML IV SCH ×2 (09:09→21:51)
[2018-07-18] MEDS: LISINOPRIL 10 MG TABLET (FP) PO SCH (09:09)
[2018-07-18] MEDS: metoPROLOL SUCCINATE 25 MG TAB.SR.24H (FP) PO SCH (09:09)
[2018-07-18] MEDS: HEPARIN NA (PORCINE) 5,000 UNITS/ML 1ML VIAL SQ SCH ×2 (09:09→21:50)
[2018-07-18] MEDS: LACTOBACILLUS ACIDOPHILUS 1 TABLET PO SCH (09:09)
[2018-07-18 10:48] LABS: HEMATOCRIT 28.5 % (32.4-45.2); HEMOGLOBIN 9.7 GM/dL (10.7-15.3); MCH 28.5 pg (25.7-33.7); MCHC 34.1 g/dl (32.0-36.0); MEAN CELL VOLUME 83.7 fl (80-96); MEAN PLT VOLUME 6.6 fl (7.5-11.1); PLATELET COUNT 216 K/MM3 (134-434); RDW 13.4 % (11.6-15.6); WHITE BLOOD COUNT 3.8 K/mm3 (4.0-10.0)
[2018-07-18 11:16] LABS: ALBUMIN 3.2 g/dl (3.4-5.0); ALK PHOS 741 U/L (45-117); ANION GAP 8 MMOL/L (8-16); BILIRUBIN,TOTAL 0.2 mg/dL (0.2-1); BLOOD UREA NITROGEN 9 mg/dL (7-18); CHLORIDE 104 mmol/L (98-107); CO2 24 mmol/L (21-32); CREATININE 0.9 mg/dL (0.55-1.3); GLUCOSE,RANDOM 115 mg/dL (74-106); POTASSIUM 3.7 mmol/L (3.5-5.1); SGOT/AST 114 U/L (15-37); SGPT/ALT 97 U/L (13-61); SODIUM 135 mmol/L (136-145); TOT PROT 6.6 g/dl (6.4-8.2)
--- NOTE | 2018-07-18 11:48 | PN ---
Progress Note (short form) - Note Progress Note: Patient seen in follow up. No new complaints. Headache and L sided neck pain improved. No significant events overnight. Inpatient Meds reviewed. Current Medications Alprazolam (Xanax -) 1 mg PO HS [facility] Last Admin: 07/17/18 21:53 Dose: 1 mg Amitriptyline HCl (Elavil -) 25 mg PO HS [facility] Last Admin: 07/17/18 21:52 Dose: 25 mg Gabapentin (Neurontin -) 300 mg PO TID [facility] Last Admin: 07/18/18 06:22 Dose: 300 mg Heparin Sodium (Porcine) (Heparin -) 5,000 unit SQ BID [facility] Last Admin: 07/18/18 09:09 Dose: 5,000 unit Hydrochlorothiazide (Hctz -) 12.5 mg PO DAILY [facility] Last Admin: 07/18/18 09:09 Dose: 12.5 mg Dextrose/Sodium Chloride (D5-Ns -) 1,000 mls @ 75 mls/hr IV ASDIR [facility] Last Admin: 07/18/18 09:09 Dose: 75 mls/hr Lactobacillus Acidophilus (Bacid -) 1 tab PO DAILY [facility] Last Admin: 07/18/18 09:09 Dose: 1 tab Lisinopril (Prinivil) 10 mg PO DAILY [facility] Last Admin: 07/18/18 09:09 Dose: 10 mg Metoprolol Succinate (Toprol Xl -) 25 mg PO DAILY [facility] Last Admin: 07/18/18 09:09 Dose: 25 mg Ondansetron HCl (Zofran Injection) 4 mg IVPUSH Q4H PRN PRN Reason: NAUSEA AND/OR VOMITING Oxycodone HCl (Roxicodone -) 5 mg PO Q4H PRN PRN Reason: PAIN LEVEL 6-10 Last Admin: 07/18/18 02:19 Dose: 5 mg Pantoprazole Sodium (Protonix Iv) 40 mg IVPUSH DAILY [facility] Last Admin: 07/18/18 09:09 Dose: 40 mg On Examination: Last Vital Signs Temp Pulse Resp BP Pulse Ox 98.8 F 88 18 125/63 98 07/18/18 10:00 07/18/18 10:00 07/18/18 10:00 07/18/18 10:00 07/18/18 10:00 General: In no acute distress, lsitting in chair Extremities: No pallor or icterus. No pedal edema. No palpable lymphadenopathy. CVS: S1, S2, regular, no gallop or murmur. Chest: good air entry bilaterally, clear Abdomen: Non-distended, non-tender, no palpable organomegaly. Neuro: Alert, oriented, non-focal. Labs: CBC, BMP 07/18/18 10:25 07/18/18 10:25 Assessment. Metastatic breast cancer, s/p several lines of therapy, presenting with headache , nausea, neck pain. MRI brain with contrast shows nonspecific dural enhancement --?carcinomatosis. Also C1 articular mass - neoplastic versus inflammatory. Presenting symptoms improved. Appreciate input neurology. Spinal tap Thursday. MRI neck recommended. Will follow.
--- NOTE | 2018-07-18 19:44 | PN ---
Progress Note (short form) - Note Progress Note: headaches- better with pain meds and rt sided neck pain no radiation of pain to right arm Able to move her head and neck Vital Signs - 24 hr 07/18/18 07/18/18 07/18/18 02:00 06:00 10:00 Temperature 98.2 F 98.8 F Pulse Rate 84 88 Respiratory 20 18 Rate Blood Pressure 125/68 125/63 O2 Sat by Pulse 98 98 Oximetry (%) 07/18/18 14:00 Temperature 98.3 F Pulse Rate 85 Respiratory 19 Rate Blood Pressure 150/70 O2 Sat by Pulse Oximetry (%) Current Medications Generic Name Dose Route Start Last Admin Trade Name Freq PRN Reason Stop Dose Admin Alprazolam 1 mg 07/15/18 22:00 07/17/18 21:53 Xanax - PO 1 mg HS CARTER Administration Amitriptyline HCl 25 mg 07/15/18 22:00 07/17/18 21:52 Elavil - PO 25 mg HS CARTER Administration Gabapentin 300 mg 07/15/18 14:00 07/18/18 13:58 Neurontin - PO 300 mg TID CARTER Administration Heparin Sodium (Porcine) 5,000 unit 07/15/18 22:00 07/18/18 09:09 Heparin - SQ 5,000 unit BID CARTER Administration Hydrochlorothiazide 12.5 mg 07/16/18 10:00 07/18/18 09:09 Hctz - PO 12.5 mg DAILY CARTER Administration Dextrose/Sodium Chloride 1,000 mls @ 75 mls/hr 07/15/18 12:45 07/18/18 09:09 D5-Ns - IV 75 mls/hr ASDIR CARTER Administration Lactobacillus Acidophilus 1 tab 07/16/18 10:00 07/18/18 09:09 Bacid - PO 1 tab DAILY CARTER Administration Lisinopril 10 mg 07/16/18 10:00 07/18/18 09:09 Prinivil PO 10 mg DAILY CARTER Administration Metoprolol Succinate 25 mg 07/16/18 10:00 07/18/18 09:09 Toprol Xl - PO 25 mg DAILY CARTER Administration Ondansetron HCl 4 mg 07/15/18 12:40 Zofran Injection IVPUSH Q4H PRN NAUSEA AND/OR VOMITING Oxycodone HCl 5 mg 07/17/18 11:18 07/18/18 02:19 Roxicodone - PO 5 mg Q4H PRN Administration PAIN LEVEL 6-10 Pantoprazole Sodium 40 mg 07/16/18 10:00 07/18/18 09:09 Protonix Iv IVPUSH 40 mg DAILY CARTER Administration Laboratory Results - last 24 hr 07/18/18 07/18/18 10:25 10:25 WBC 3.8 L RBC 3.40 L Hgb 9.7 L Hct 28.5 L MCV 83.7 MCH 28.5 MCHC 34.1 RDW 13.4 Plt Count 216 MPV 6.6 L Sodium 135 L Potassium 3.7 Chloride 104 Carbon Dioxide 24 Anion Gap 8 BUN 9 Creatinine 0.9 Creat Clearance w eGFR 62.64 Random Glucose 115 H Calcium 8.0 L Total Bilirubin 0.2 AST 114 H ALT 97 H Alkaline Phosphatase 741 H Total Protein 6.6 Albumin 3.2 L s1 S2 RRR Tender rt side of neck , at occipital region no LNE Lungs clear Abd- soft, NT no edema PLAN spoke with Oncology - Dr Hall-- recommending MRI C spine with emmanuel- MRI brain noted-- ? dural enhancement , C1 mass\ MRI c spine pending -- will be done today pain control as needed check labs no further GI symptoms- change iv protonix to PO Neurology eval appreciated-- for spinal tap tomorrow continue with meds iv fluids Problem List - Problems (1) Hyponatremia Code(s): E87.1 - HYPO-OSMOLALITY AND HYPONATREMIA (2) Vomiting Code(s): R11.10 - VOMITING, UNSPECIFIED (3) Breast cancer, left breast Code(s): C50.912 - MALIGNANT NEOPLASM OF UNSPECIFIED SITE OF LEFT FEMALE BREAST Qualifiers: Breast location: lower inner quadrant of breast Patient sex: female
[2018-07-18] MEDS: AMITRIPTYLINE HCL 25 MG TABLET (FP) PO SCH (21:50)
[2018-07-18] MEDS: ALPRAZolam 2 MG TABLET PO SCH (21:50)
[2018-07-19] MEDS: GABAPENTIN 300 MG CAPSULE (FP) PO SCH ×3 (06:18→21:01)
[2018-07-19] MEDS: oxyCODONE HCL 5 MG TABLET PO PRN ×3 (06:22→23:24)
[2018-07-19 07:22] LABS: HEMATOCRIT 28.4 % (32.4-45.2); HEMOGLOBIN 9.4 GM/dL (10.7-15.3); MCH 27.2 pg (25.7-33.7); MCHC 33.1 g/dl (32.0-36.0); MEAN CELL VOLUME 82.1 fl (80-96); MEAN PLT VOLUME 6.9 fl (7.5-11.1); PLATELET COUNT 225 K/MM3 (134-434); RBC 3.46 M/mm3 (3.60-5.2); RDW 13.2 % (11.6-15.6)
[2018-07-19 08:19] LABS: ALK PHOS 691 U/L (45-117); ANION GAP 8 MMOL/L (8-16); BILIRUBIN,TOTAL 0.3 mg/dL (0.2-1); BLOOD UREA NITROGEN 7 mg/dL (7-18); CHLORIDE 105 mmol/L (98-107); CO2 23 mmol/L (21-32); CREATININE 0.8 mg/dL (0.55-1.3); GLUCOSE,RANDOM 94 mg/dL (74-106); SGOT/AST 103 U/L (15-37); SGPT/ALT 97 U/L (13-61); SODIUM 136 mmol/L (136-145); TOT PROT 6.2 g/dl (6.4-8.2)
[2018-07-19] MEDS: HYDROCHLOROTHIAZIDE 12.5 MG CAPSULE (FP) PO SCH (11:04)
[2018-07-19] MEDS: LISINOPRIL 10 MG TABLET (FP) PO SCH (11:04)
[2018-07-19] MEDS: PANTOPRAZOLE 40 MG TABLET (FP) PO SCH (11:04)
[2018-07-19] MEDS: metoPROLOL SUCCINATE 25 MG TAB.SR.24H (FP) PO SCH (11:04)
[2018-07-19] MEDS: LACTOBACILLUS ACIDOPHILUS 1 TABLET PO SCH (11:07)
[2018-07-19] MEDS: HEPARIN NA (PORCINE) 5,000 UNITS/ML 1ML VIAL SQ SCH (11:07)
--- NOTE | 2018-07-19 11:10 | PN ---
Progress Note (short form) - Note Progress Note: pt seen/ examined chart reviewed all f/u noted comfortable Vital Signs Temp 98.1 F 07/19/18 06:00 Pulse 90 07/19/18 06:00 Resp 20 07/19/18 06:00 BP 142/74 07/19/18 06:00 Pulse Ox 98 07/18/18 21:00 Intake & Output 07/18/18 07/18/18 07/19/18 11:59 23:59 11:59 Intake Total 800 1065 Balance 800 1065 Intake: IV 825 D5-Ns - 1,000 ml @ 75 mls 825 /hr IV ASDIR [facility] Rx#: [id number] Oral 800 240 Other: Voiding Method Toilet Toilet Toilet # Unmeasured Voids Void 2 Active Medications Alprazolam (Xanax -) 1 mg PO HS [facility] Last Admin: 07/18/18 21:50 Dose: 1 mg Amitriptyline HCl (Elavil -) 25 mg PO HS [facility] Last Admin: 07/18/18 21:50 Dose: 25 mg Gabapentin (Neurontin -) 300 mg PO TID [facility] Last Admin: 07/19/18 06:18 Dose: 300 mg Heparin Sodium (Porcine) (Heparin -) 5,000 unit SQ BID [facility] Last Admin: 07/19/18 11:07 Dose: 5,000 unit Hydrochlorothiazide (Hctz -) 12.5 mg PO DAILY [facility] Last Admin: 07/19/18 11:04 Dose: 12.5 mg Dextrose/Sodium Chloride (D5-Ns -) 1,000 mls @ 75 mls/hr IV ASDIR [facility] Last Admin: 07/18/18 21:51 Dose: 75 mls/hr Lactobacillus Acidophilus (Bacid -) 1 tab PO DAILY [facility] Last Admin: 07/19/18 11:07 Dose: 1 tab Lisinopril (Prinivil) 10 mg PO DAILY [facility] Last Admin: 07/19/18 11:04 Dose: 10 mg Metoprolol Succinate (Toprol Xl -) 25 mg PO DAILY [facility] Last Admin: 07/19/18 11:04 Dose: 25 mg Ondansetron HCl (Zofran Injection) 4 mg IVPUSH Q4H PRN PRN Reason: NAUSEA AND/OR VOMITING Oxycodone HCl (Roxicodone -) 5 mg PO Q4H PRN PRN Reason: PAIN LEVEL 6-10 Last Admin: 07/19/18 11:04 Dose: 5 mg Pantoprazole Sodium (Protonix -) 40 mg PO DAILY CARTER Last Admin: 07/19/18 11:04 Dose: 40 mg CBC, BMP 07/19/18 06:30 07/19/18 06:30 mri -brain - noted Mri - neck pending Physical Exam. s1 S2 RRR Tender rt side of neck , at occipital region no LNE Lungs clear Abd- soft, NT no edema PLAN MRI C spine with emmanuel- MRI brain noted-- ? dural enhancement , C1 mass MRI c spine pending -- will be done today pain control as needed check labs no further GI symptoms- protonix PO Neurology eval appreciated-- for spinal tap today continue with meds will follow
--- NOTE | 2018-07-19 13:10 | PN ---
Progress Note (short form) - Note Progress Note: Discussed LP with patient and family today. TO be done under fluoro guidance. Spoke with nurse and with Radiology. TO get cytology. Cytology form filled out and handed to nurse to send down with patient. Other labs ordered. LP will not be done today, because she received subcutaneous heparin. They will do it tomorrow.
[2018-07-19] MEDS ORDERED: PT OWN MED DRAWER 7, Y5N ONE (20:44)
[2018-07-19] MEDS: AMITRIPTYLINE HCL 25 MG TABLET (FP) PO SCH (21:01)
[2018-07-19] MEDS: ALPRAZolam 2 MG TABLET PO SCH (21:01)
--- NOTE | 2018-07-19 22:52 | PN ---
Progress Note (short form) - Note Progress Note: Patinet seen and examined Feels better Last Vital Signs Temp Pulse Resp BP Pulse Ox 99.4 F 103 H 18 164/90 98 07/19/18 20:28 07/19/18 20:28 07/19/18 17:30 07/19/18 20:28 07/18/18 21:00 Cor: RSR, No murmurs, No gallops Lungs: Clear to P&A Abd: Soft, Normal bowel sounds, No organomegaly Ext:No significant edema Labs/Meds reviewed A/P 68 y/o patient with metastatic breast cancer, s/p several lines of therapy, comes in with numbness over the chin, headaches, vmnting MRI brain with contrast shows nonspecific dural enhancement --? neoplastic.Also C1 articular mass ? neoplastic versus inflammatory MRI C spine pending LP under fluoro discussed with neuro will consult rad-onc
[2018-07-20] MEDS ORDERED: HYDROmorphone HCl 2 MG/ML VIAL IVPUSH ONE (01:43)
[2018-07-20] MEDS: GABAPENTIN 300 MG CAPSULE (FP) PO SCH ×3 (06:42→22:06)
--- NOTE | 2018-07-20 09:57 | PN ---
Progress Note (short form) - Note Progress Note: Discussed LP with patient and family. TO be done under fluoro guidance, today. Spoke with nurse and with Radiology. TO get cytology. Cytology form filled out and handed to nurse to send down with patient This is in her chart. Other labs ordered. Heparin has been held so she should get LP today.
[2018-07-20 10:28] LABS: INR 1.06 (0.83-1.09); PROTHROMBIN TIME (PATIENT) 12.5 SEC (9.7-13.0)
[2018-07-20] MEDS: metoPROLOL SUCCINATE 25 MG TAB.SR.24H (FP) PO SCH (11:05)
[2018-07-20] MEDS: PANTOPRAZOLE 40 MG TABLET (FP) PO SCH (11:05)
[2018-07-20] MEDS: HYDROCHLOROTHIAZIDE 12.5 MG CAPSULE (FP) PO SCH (11:06)
[2018-07-20] MEDS: LACTOBACILLUS ACIDOPHILUS 1 TABLET PO SCH (11:06)
[2018-07-20] MEDS: LISINOPRIL 10 MG TABLET (FP) PO SCH (11:06)
[2018-07-20] MEDS ORDERED: ALPRAZolam 2 MG TABLET PO ONE (11:30)
[2018-07-20] MEDS: oxyCODONE HCL 5 MG TABLET PO PRN ×2 (11:44→20:23)
--- NOTE | 2018-07-20 12:00 | PN ---
Progress Note (short form) - Note Progress Note: headaches- better with pain meds and rt sided neck pain no radiation of pain to right arm Able to move her head and neck family at bedside Vital Signs - 24 hr 07/19/18 07/19/18 07/19/18 14:00 17:30 20:28 Temperature 98.4 F 98.5 F 99.4 F Pulse Rate 93 H 96 H 103 H Respiratory 18 18 Rate Blood Pressure 146/73 144/89 164/90 07/19/18 07/20/18 07/20/18 21:00 06:00 09:00 Temperature 98.4 F Pulse Rate 90 Respiratory 18 20 20 Rate Blood Pressure 135/70 07/20/18 10:00 Temperature 98.5 F Pulse Rate 90 Respiratory 20 Rate Blood Pressure 154/79 Current Medications Generic Name Dose Route Start Last Admin Trade Name Freq PRN Reason Stop Dose Admin Alprazolam 1 mg 07/15/18 22:00 07/19/18 21:01 Xanax - PO 1 mg HS CARTER Administration Amitriptyline HCl 25 mg 07/15/18 22:00 07/19/18 21:01 Elavil - PO 25 mg HS CARTER Administration Gabapentin 300 mg 07/15/18 14:00 07/20/18 06:42 Neurontin - PO 300 mg TID CARTER Administration Heparin Sodium (Porcine) 5,000 unit 07/15/18 22:00 07/19/18 11:07 Heparin - SQ 5,000 unit BID CARTER Administration Hydrochlorothiazide 12.5 mg 07/16/18 10:00 07/20/18 11:06 Hctz - PO 12.5 mg DAILY CARTER Administration Lactobacillus Acidophilus 1 tab 07/16/18 10:00 07/20/18 11:06 Bacid - PO 1 tab DAILY CARTER Administration Lisinopril 10 mg 07/16/18 10:00 07/20/18 11:06 Prinivil PO 10 mg DAILY CARTER Administration Metoprolol Succinate 25 mg 07/16/18 10:00 07/20/18 11:05 Toprol Xl - PO 25 mg DAILY CARTER Administration Ondansetron HCl 4 mg 07/15/18 12:40 Zofran Injection IVPUSH Q4H PRN NAUSEA AND/OR VOMITING Oxycodone HCl 5 mg 07/17/18 11:18 07/20/18 11:44 Roxicodone - PO 5 mg Q4H PRN Administration PAIN LEVEL 6-10 Pantoprazole Sodium 40 mg 07/19/18 10:00 07/20/18 11:05 Protonix - PO 40 mg DAILY CARTER Administration Laboratory Results - last 24 hr 07/20/18 09:20 PT with INR 12.50 INR 1.06 s1 S2 RRR Tender rt side of neck , at occipital region no LNE Lungs clear Abd- soft, NT no edema PLAN MRI c spine done-results pending for LP today pain control as needed check labs no further GI symptom Neurology eval appreciated continue with meds Problem List - Problems (1) Hyponatremia Code(s): E87.1 - HYPO-OSMOLALITY AND HYPONATREMIA (2) Vomiting Code(s): R11.10 - VOMITING, UNSPECIFIED (3) Breast cancer, left breast Code(s): C50.912 - MALIGNANT NEOPLASM OF UNSPECIFIED SITE OF LEFT FEMALE BREAST Qualifiers: Breast location: lower inner quadrant of breast Patient sex: female
[2018-07-20 15:22] LABS: CSF COLOR COLORLESS
[2018-07-20 15:23] LABS: CSF APPEARANCE CLEAR; CSF WBC 2
[2018-07-20] MEDS ORDERED: PT OWN MED DRAWER 7, Y5N ONE (20:04)
--- NOTE | 2018-07-20 20:46 | PN ---
Progress Note (short form) - Note Progress Note: Patient seen and examined Complains of headache and numbness perioral and chin area Last Vital Signs Temp Pulse Resp BP Pulse Ox 98.9 F 113 H 20 166/69 98 07/20/18 20:18 07/20/18 20:18 07/20/18 20:18 07/20/18 20:18 07/18/18 21:00 HEENT: GLADYS, EOM Intact Oropharynx: No thrush, No mucositis Cor: RSR, No murmurs, No gallops Lungs: Clear to P&A Abd: Soft, Normal bowel sounds, No organomegaly Ext:No significant edema Skin: No rashes, Integument intact CBC, BMP 07/19/18 06:30 07/19/18 06:30 Current Medications Generic Name Dose Route Start Last Admin Trade Name Freq PRN Reason Stop Dose Admin Alprazolam 1 mg 07/15/18 22:00 07/19/18 21:01 Xanax - PO 1 mg HS CARTER Administration Amitriptyline HCl 25 mg 07/15/18 22:00 07/19/18 21:01 Elavil - PO 25 mg HS CARTER Administration Gabapentin 300 mg 07/15/18 14:00 07/20/18 15:30 Neurontin - PO 300 mg TID CARTER Administration Heparin Sodium (Porcine) 5,000 unit 07/15/18 22:00 07/19/18 11:07 Heparin - SQ 5,000 unit BID CARTER Administration Hydrochlorothiazide 12.5 mg 07/16/18 10:00 07/20/18 11:06 Hctz - PO 12.5 mg DAILY CARTER Administration Lactobacillus Acidophilus 1 tab 07/16/18 10:00 07/20/18 11:06 Bacid - PO 1 tab DAILY CARTER Administration Lisinopril 10 mg 07/16/18 10:00 07/20/18 11:06 Prinivil PO 10 mg DAILY CARTER Administration Metoprolol Succinate 25 mg 07/16/18 10:00 07/20/18 11:05 Toprol Xl - PO 25 mg DAILY CARTER Administration Ondansetron HCl 4 mg 07/15/18 12:40 Zofran Injection IVPUSH Q4H PRN NAUSEA AND/OR VOMITING Oxycodone HCl 5 mg 07/17/18 11:18 07/20/18 20:23 Roxicodone - PO 5 mg Q4H PRN Administration PAIN LEVEL 6-10 Pantoprazole Sodium 40 mg 07/19/18 10:00 07/20/18 11:05 Protonix - PO 40 mg DAILY CARTER Administration Impression: 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
[2018-07-20] MEDS: ALPRAZolam 2 MG TABLET PO SCH (22:06)
[2018-07-20] MEDS: AMITRIPTYLINE HCL 25 MG TABLET (FP) PO SCH (22:06)
[2018-07-21] MEDS: oxyCODONE HCL 5 MG TABLET PO PRN ×3 (02:50→21:33)
[2018-07-21] MEDS ORDERED: GABAPENTIN 100 MG CAPSULE (FP) PO SCH (06:00)
--- NOTE | 2018-07-21 09:33 | PN ---
Progress Note (short form) - Note Progress Note: Pt. remains with numb chin, cervical pain(has known C1/2 articular metastases.) Cytology awaited CSF- protein-62, glucose-59 Cytology awaited. 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 Will need to repeat tap after a few days if cytology unrevealing. Thank you, Debra Sandoval MD
[2018-07-21] MEDS: metoPROLOL SUCCINATE 25 MG TAB.SR.24H (FP) PO SCH (09:44)
[2018-07-21] MEDS: HEPARIN NA (PORCINE) 5,000 UNITS/ML 1ML VIAL SQ SCH ×2 (09:44→21:30)
[2018-07-21] MEDS: HYDROCHLOROTHIAZIDE 12.5 MG CAPSULE (FP) PO SCH (09:44)
[2018-07-21] MEDS: LISINOPRIL 10 MG TABLET (FP) PO SCH (09:44)
[2018-07-21] MEDS: LACTOBACILLUS ACIDOPHILUS 1 TABLET PO SCH (09:44)
[2018-07-21] MEDS: PANTOPRAZOLE 40 MG TABLET (FP) PO SCH (09:44)
--- NOTE | 2018-07-21 11:38 | PN ---
Progress Note (short form) - Note Progress Note: headaches- better with pain meds and rt sided neck pain has numbness to chin no radiation of pain to right arm Able to move her head and neck family at bedside underwent LP yesterday Vital Signs - 24 hr 07/20/18 07/20/18 07/21/18 20:18 21:00 06:19 Temperature 98.9 F 98.9 F Pulse Rate 113 H 106 H Respiratory 20 20 20 Rate Blood Pressure 166/69 115/65 07/21/18 07/21/18 14:00 17:20 Temperature 99.1 F 99.1 F Pulse Rate 102 H 92 H Respiratory 20 20 Rate Blood Pressure 135/75 128/67 Current Medications Generic Name Dose Route Start Last Admin Trade Name Freq PRN Reason Stop Dose Admin Alprazolam 1 mg 07/15/18 22:00 07/20/18 22:06 Xanax - PO 1 mg HS CARTER Administration Amitriptyline HCl 25 mg 07/15/18 22:00 07/20/18 22:06 Elavil - PO 25 mg HS CARTER Administration Gabapentin 300 mg 07/21/18 14:00 07/21/18 13:24 Neurontin - PO 300 mg TID CARTER Administration Heparin Sodium (Porcine) 5,000 unit 07/15/18 22:00 07/21/18 09:44 Heparin - SQ 5,000 unit BID CARTER Administration Hydrochlorothiazide 12.5 mg 07/16/18 10:00 07/21/18 09:44 Hctz - PO 12.5 mg DAILY CARTER Administration Lactobacillus Acidophilus 1 tab 07/16/18 10:00 07/21/18 09:44 Bacid - PO 1 tab DAILY CARTER Administration Lisinopril 10 mg 07/16/18 10:00 07/21/18 09:44 Prinivil PO 10 mg DAILY CARTER Administration Metoprolol Succinate 25 mg 07/16/18 10:00 07/21/18 09:44 Toprol Xl - PO 25 mg DAILY CARTER Administration Ondansetron HCl 4 mg 07/15/18 12:40 Zofran Injection IVPUSH Q4H PRN NAUSEA AND/OR VOMITING Oxycodone HCl 5 mg 07/17/18 11:18 07/21/18 13:24 Roxicodone - PO 5 mg Q4H PRN Administration PAIN LEVEL 6-10 Pantoprazole Sodium 40 mg 07/19/18 10:00 07/21/18 09:44 Protonix - PO 40 mg DAILY CARTER Administration Laboratory Results - last 24 hr 07/20/18 13:15 CSF Glucose No Result Required. CSF Total Protein No Result Required. s1 S2 RRR Tender rt side of neck , at occipital region no LNE Lungs clear Abd- soft, NT no edema PLAN MRI c spine done-results noted s/p LP awaiting cytology pain control as needed check labs no further GI symptom Neurology eval appreciated continue with meds spoke with Dr hawkins-- will place consult for radiation/oncology Problem List - Problems (1) Hyponatremia Code(s): E87.1 - HYPO-OSMOLALITY AND HYPONATREMIA (2) Vomiting Code(s): R11.10 - VOMITING, UNSPECIFIED (3) Breast cancer, left breast Code(s): C50.912 - MALIGNANT NEOPLASM OF UNSPECIFIED SITE OF LEFT FEMALE BREAST Qualifiers: Breast location: lower inner quadrant of breast Patient sex: female
[2018-07-21] MEDS: GABAPENTIN 300 MG CAPSULE (FP) PO SCH ×2 (13:24→21:30)
[2018-07-21] MEDS ORDERED: PT OWN MED DRAWER 7, Y5N ONE (21:09)
[2018-07-21] MEDS: AMITRIPTYLINE HCL 25 MG TABLET (FP) PO SCH (21:30)
[2018-07-21] MEDS: ALPRAZolam 2 MG TABLET PO SCH (21:31)
[2018-07-22] MEDS: oxyCODONE HCL 5 MG TABLET PO PRN ×2 (04:06→20:28)
[2018-07-22] MEDS: GABAPENTIN 300 MG CAPSULE (FP) PO SCH ×3 (05:49→22:04)
[2018-07-22] MEDS: LISINOPRIL 10 MG TABLET (FP) PO SCH (09:11)
[2018-07-22] MEDS: LACTOBACILLUS ACIDOPHILUS 1 TABLET PO SCH (09:11)
[2018-07-22] MEDS: metoPROLOL SUCCINATE 25 MG TAB.SR.24H (FP) PO SCH (09:11)
[2018-07-22] MEDS: HEPARIN NA (PORCINE) 5,000 UNITS/ML 1ML VIAL SQ SCH ×2 (09:11→22:05)
[2018-07-22] MEDS: PANTOPRAZOLE 40 MG TABLET (FP) PO SCH (09:11)
[2018-07-22] MEDS: HYDROCHLOROTHIAZIDE 12.5 MG CAPSULE (FP) PO SCH (09:11)
--- NOTE | 2018-07-22 14:11 | PN ---
Progress Note (short form) - Note Progress Note: headaches- better with pain meds and rt sided neck pain has numbness to chin no radiation of pain to right arm Able to move her head and neck Vital Signs - 24 hr 07/21/18 07/22/18 07/22/18 17:20 06:00 09:00 Temperature 99.1 F 99.9 F H Pulse Rate 92 H 98 H Respiratory 20 20 Rate Blood Pressure 128/67 111/70 O2 Sat by Pulse 92 L Oximetry (%) 07/22/18 10:00 Temperature 98.7 F Pulse Rate 104 H Respiratory 20 Rate Blood Pressure 116/65 O2 Sat by Pulse Oximetry (%) Current Medications Generic Name Dose Route Start Last Admin Trade Name Freq PRN Reason Stop Dose Admin Alprazolam 1 mg 07/15/18 22:00 07/21/18 21:31 Xanax - PO 1 mg HS CARTER Administration Amitriptyline HCl 25 mg 07/15/18 22:00 07/21/18 21:30 Elavil - PO 25 mg HS CARTER Administration Gabapentin 300 mg 07/21/18 14:00 07/22/18 13:44 Neurontin - PO 300 mg TID CARTER Administration Heparin Sodium (Porcine) 5,000 unit 07/15/18 22:00 07/22/18 09:11 Heparin - SQ 5,000 unit BID CARTER Administration Hydrochlorothiazide 12.5 mg 07/16/18 10:00 07/22/18 09:11 Hctz - PO 12.5 mg DAILY CARTER Administration Lactobacillus Acidophilus 1 tab 07/16/18 10:00 07/22/18 09:11 Bacid - PO 1 tab DAILY CARTER Administration Lisinopril 10 mg 07/16/18 10:00 07/22/18 09:11 Prinivil PO 10 mg DAILY CARTER Administration Metoprolol Succinate 25 mg 07/16/18 10:00 07/22/18 09:11 Toprol Xl - PO 25 mg DAILY CARTER Administration Ondansetron HCl 4 mg 07/15/18 12:40 07/22/18 10:32 Zofran Injection IVPUSH 4 mg Q4H PRN Administration NAUSEA AND/OR VOMITING Oxycodone HCl 5 mg 07/17/18 11:18 07/22/18 04:06 Roxicodone - PO 5 mg Q4H PRN Administration PAIN LEVEL 6-10 Pantoprazole Sodium 40 mg 07/19/18 10:00 07/22/18 09:11 Protonix - PO 40 mg DAILY CARTER Administration s1 S2 RRR Tender rt side of neck , at occipital region no LNE Lungs clear Abd- soft, NT no edema PLAN MRI c spine done-results noted s/p LP awaiting cytology pain control as needed check labs no further GI symptom Neurology eval appreciated continue with meds spoke with Dr hawkins-- will place consult for radiation/oncology--pending Problem List - Problems (1) Hyponatremia Code(s): E87.1 - HYPO-OSMOLALITY AND HYPONATREMIA (2) Vomiting Code(s): R11.10 - VOMITING, UNSPECIFIED (3) Breast cancer, left breast Code(s): C50.912 - MALIGNANT NEOPLASM OF UNSPECIFIED SITE OF LEFT FEMALE BREAST Qualifiers: Breast location: lower inner quadrant of breast Patient sex: female
--- NOTE | 2018-07-22 14:24 | PN ---
Progress Note (short form) - Note Progress Note: Radiation Oncology Pt seen, chart reviewed, full consult to follow. Ms. Levine is known to me w/hx of metastatic ER+ breast cancer s/p multiple palliative RT courses to L spine and left femur (most recently completed 05/31/18 ) a/w clinical picture of meningitis (dural enhancement on MRI, photophobia, N/V , occipital headache, neck pain, facial paresthesia) - highly suspicious for LMD , r/o infectious/inflammatory etiologies. Additional abnormal changes (edema, effusion, enhancement) at C1 vertebral level may or may not be contributory. Status post LP - cytology read as negative for malignancy. No immediate role for RT. 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 To d/w radiology, pathology, oncology, neurology.
[2018-07-22] MEDS: MAG HYDROX/AL HYDROX/SIMETH 30 ML UNIT-DOSE CUP PO PRN (14:34)
--- NOTE | 2018-07-22 20:34 | PN ---
Progress Note (short form) - Note Progress Note: Lynette seen and examined c/o neck pain AFVSS Cor: RSR, No murmurs, No gallops Lungs: Clear to P&A Abd: Soft, Normal bowel sounds, No organomegaly Labs/Meds reviewed A/P 68 y/o patient with metastatic breast cancer, s/p several lines of therapy, comes in with numbness over the chin, headaches, vomiting MRI brain with contrast shows nonspecific dural enhancement --? neoplastic.Also C1 articular mass ? neoplastic versus inflammatory MRI C spine -- C1 altered marrow signal cytology negative ? repeat LP rheum consult discussed with rad-onc will discuss with Dr. Galvan
[2018-07-22] MEDS: ALPRAZolam 2 MG TABLET PO SCH (22:06)
--- NOTE | 2018-07-22 22:07 | CONS ---
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 HISTORY OF PRESENT ILLNESS: Patient is a 68-year-old woman with a history of stage IV hormone-sensitive breast cancer who has received multiple courses of systemic therapy and palliative radiation therapy (RT) to the lumbar spine and left femur, most recently completing RT in May 2018. She is admitted with lethargy, anorexia, oral intake, associated with nausea, vomiting, headache, and a 3-week history of right neck pain, photophobia, occipital scalp sensitivity and numbness in the chin, lower lip and roof of the mouth. She has most recently received Zometa and Faslodex. Workup including MRI of the brain and cervical spine demonstrates nonspecific dural thickening and enhancement along the cerebral convexities bilaterally. No intraparenchymal brain lesion and altered marrow signal intensity in the C1 vertebra with increased contrast enhancement as well as multifocal disease in the remainder of the cervical spine. A C1 to C2 joint effusion, right greater than left, with edema on the right side. There is no evidence of epidural disease. She had a lumbar puncture and cytology reveals no malignant cells. She reports nausea secondary to heartburn today. She has sensitivity to light and neck pain limiting her range of motion. She is ambulatory, though unsteady, according to her daughter. She has trouble eating due to the decreased sensation in the mouth and lip. Her appetite is poor. PAST MEDICAL HISTORY: GERD, hypertension, gastric ulcer. PAST SURGICAL HISTORY: Cholecystectomy, hysterectomy. ALLERGIES: No known drug allergies. CURRENT MEDICATIONS: Zofran p.r.n., lisinopril, Mylanta p.r.n., heparin subcutaneous, Neurontin, Elavil, Xanax, Toprol XL, oxycodone p.r.n., Protonix, hydrochlorothiazide. FAMILY HISTORY: Includes breast cancer, colon cancer in her brother, pancreatic cancer in her sister. SOCIAL HISTORY: She does not smoke or use alcohol. She is and has 4 children. She never used hormones. She worked in [place] for a [employer]. Denies occupational exposures. REVIEW OF SYSTEMS: As noted above. PHYSICAL EXAMINATION: General: female, appearing her stated age, in mild distress, seated in the chair. Daughter and family are present. Vital Signs: Temperature 98.7, blood pressure 116/65, pulse 104, respiratory rate 20, SAO2 92% on room air. HEENT: Normocephalic, atraumatic. Moist mucous membranes. Anicteric sclerae. Clear oral cavity without thrush or mucositis. Neck: No mass or adenopathy. Chest: Lungs are clear. No wheezes, rales, or rhonchi. Cardiovascular: Regular. Abdomen: Benign. Extremities: No edema. Musculoskeletal: Point tenderness in the cervical spine and hyperesthesia in occiput scalp. Neurologic: Alert, oriented x3. GLADYS, EOMI, no facial asymmetry. Decreased sensation in the V3 distribution. Motor examination is nonfocal, no pronator drift. RADIOLOGIC DATA: MRI of the brain and cervical spine: See HPI. LABORATORY DATA: WBC 4.0, hemoglobin 9.4, platelet count 225,000. Electrolytes are within normal limits. BUN 7, creatinine 0.8. Calcium 8.0, AST 103, ALT 97, alkaline phosphatase 691, albumin 3.0. PATHOLOGIC DATA: CSF cytology from LP: Negative for malignant cells, scattered lymphocytes. IMPRESSION: Metastatic breast cancer with clinical picture of meningitis, suspicious for leptomeningeal neoplastic involvement, rule out infectious and inflammatory etiologies given prior history of migratory polyarthritis. There are additional radiologic changes at the C1 vertebral level, which may or may not be contributory to her symptoms. The cytology is negative for malignancy. There is no immediate role for radiation therapy. I recommend close neurologic followup by Neurology, continue pain management, and consider repeating the lumbar tap for pathologic confirmation of LMD. Per Pathology, they would prefer processing earlier in the day if LP done on Thursday. Will discuss with radiology, pathology, oncology. ИВАН MORA M.D. BOB/[id number] MTDD
[2018-07-22] MEDS: AMITRIPTYLINE HCL 25 MG TABLET (FP) PO SCH (22:08)
[2018-07-22] MEDS ORDERED: PT OWN MED DRAWER 7, Y5N ONE (22:08)
[2018-07-23] MEDS: GABAPENTIN 300 MG CAPSULE (FP) PO SCH ×3 (05:54→21:12)
[2018-07-23] MEDS ORDERED: PT OWN MED DRAWER 7, Y5N ONE ×3 (09:21→21:09)
[2018-07-23] MEDS: LISINOPRIL 10 MG TABLET (FP) PO SCH (09:24)
[2018-07-23] MEDS: HYDROCHLOROTHIAZIDE 12.5 MG CAPSULE (FP) PO SCH (09:24)
[2018-07-23] MEDS: PANTOPRAZOLE 40 MG TABLET (FP) PO SCH (09:24)
[2018-07-23] MEDS: LACTOBACILLUS ACIDOPHILUS 1 TABLET PO SCH (09:24)
[2018-07-23] MEDS: metoPROLOL SUCCINATE 25 MG TAB.SR.24H (FP) PO SCH (09:24)
[2018-07-23] MEDS: HEPARIN NA (PORCINE) 5,000 UNITS/ML 1ML VIAL SQ SCH ×2 (09:24→21:12)
--- NOTE | 2018-07-23 09:33 | PN ---
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 The patient denies fever, diarrhea, chest pain or abdominal pain. She completed radiation 5 weeks ago and was scheduled to start chemotherapy today at 0830AM w/ Dr. Galvan. This is the patient's second round of chemotherapy, with the last round at approx 1 year ago. The daughter notes that the patient has had the symptoms of nausea and vomiting at the end of previous radiations and during chemotherapy, however this episode is not in closely associated with either. Additionally the patient has had a decrease in appetite for 2 days and headache for 3 days (initially frontal now occipital). MRI BRAIN IMPRESSION: Nonspecific diffuse nonspecific smooth dural thickening is noted along the cerebral convexities bilaterally - ? secondary to etiologies such as recent spinal tap with resultant intracranial hypotension, inflammatory/ infectious disease or neoplastic disease. The partially imaged upper cervical spine demonstrates nonspecific altered marrow signal intensity within the right C1 articular mass - ? representing marrow edema secondary to an arthritis versus possible neoplastic disease. There is also a small associated right C1- C2 joint effusion with synovial enhancement. Possible similar although less prominent altered marrow signal intensity is noted within the left C1 articular mass. Additional evaluation utilizing dedicated MRI and CT studies of the cervical spine is suggested. Mild bilateral frontal sinus mucosal thickening is noted. MRI C SPINE IMPRESSION: Altered marrow signal intensity with associated increase contrast enhancement is seen within the C1 articular pillars bilaterally, right more than left, probably on the basis of neoplastic disease given multilevel findings within the remainder of the cervical spine consistent with metastatic neoplastic disease. Small to moderate right lateral C1-C2 and trace left lateral C1-C2 facet joint effusions are noted. No epidural neoplastic disease is identified. Small right paramedian T3-T4 disc herniation. FU : LP : protein >60, WBC NL, cytology prelim (-) - Past Medical History Cardio/Vascular: Yes: HTN Gastrointestinal: Yes: GERD Psych: Yes: Anxiety - Past Surgical History Past Surgical History: Yes: Cholecystectomy, Hysterectomy - Alcohol/Substance Use Hx Alcohol Use: No History of Substance Use: reports: None - Smoking History Smoking history: Never smoked Have you smoked in the past 12 months: No - Social History Usual Living Arrangement: With Child ADL: Independent History of Recent Travel: Yes (just returned from [facility] 01/19) Home Medications - Allergies Allergies/Adverse Reactions: Allergies Allergy/AdvReac Type Severity Reaction Status Date / Time No Known Drug Allergies Allergy Verified 02/15/18 22:35 - Home Medications Home Medications: Ambulatory Orders Alprazolam [Xanax] 1 mg PO HS 05/30/17 Gabapentin 300 mg PO TID 05/30/17 Lisinopril/Hydrochlorothiazide [Lisinopril-Hctz 10-12.5 mg Tab] 1 each PO DAILY 05/30/17 Metoprolol Succinate [Toprol Xl] 25 mg PO DAILY 05/30/17 Tramadol HCl 50 mg PO PRN 05/30/17 Oxycodone HCl/Acetaminophen [Oxycodon-Acetaminophen 7.5-325] 1 each PO Q4H PRN 02/05/18 Famotidine [Pepcid] 20 mg PO BID #60 tablet 02/21/18 Lactobacillus Acidophilus [Bacid -] 1 tab PO DAILY #30 tab 02/21/18 Amitriptyline HCl [Elavil -] 25 mg PO HS #30 tablet 05/13/18 Family Disease History - Family Disease History Family Disease History: CA: Brother, Sister Physical Exam-Neuro Vital Signs: Vital Signs Temperature 97.5 F L 07/23/18 06:00 Pulse Rate 88 07/23/18 06:00 Respiratory Rate 20 07/23/18 06:00 Blood Pressure 110/63 07/23/18 06:00 O2 Sat by Pulse Oximetry (%) 95 07/22/18 21:00 Constitutional: Yes: Well Nourished, No Distress Labs: CBCD WBC 4.0 K/mm3 (4.0-10.0) 07/19/18 06:30 RBC 3.46 M/mm3 (3.60-5.2) L 07/19/18 06:30 Hgb 9.4 GM/dL (10.7-15.3) L 07/19/18 06:30 Hct 28.4 % (32.4-45.2) L 07/19/18 06:30 MCV 82.1 fl (80-96) 07/19/18 06:30 MCHC 33.1 g/dl (32.0-36.0) 07/19/18 06:30 RDW 13.2 % (11.6-15.6) 07/19/18 06:30 Plt Count 225 K/MM3 (134-434) 07/19/18 06:30 MPV 6.9 fl (7.5-11.1) L 07/19/18 06:30 CMP Sodium 136 mmol/L (136-145) 07/19/18 06:30 Potassium 4.0 mmol/L (3.5-5.1) 07/19/18 06:30 Chloride 105 mmol/L (98-107) 07/19/18 06:30 Carbon Dioxide 23 mmol/L (21-32) 07/19/18 06:30 Anion Gap 8 MMOL/L (8-16) 07/19/18 06:30 BUN 7 mg/dL (7-18) 07/19/18 06:30 Creatinine 0.8 mg/dL (0.55-1.3) 07/19/18 06:30 Creat Clearance w eGFR 71.76 (>60) 07/19/18 06:30 Calcium 8.0 mg/dL (8.5-10.1) L 07/19/18 06:30 Total Bilirubin 0.3 mg/dL (0.2-1) 07/19/18 06:30 AST 103 U/L (15-37) H 07/19/18 06:30 ALT 97 U/L (13-61) H 07/19/18 06:30 Alkaline Phosphatase 691 U/L (45-117) H 07/19/18 06:30 Total Protein 6.2 g/dl (6.4-8.2) L 07/19/18 06:30 Albumin 3.0 g/dl (3.4-5.0) L 07/19/18 06:30 - Neuro Exam Level Of Consciousness: Yes: Alert (awake, alert, pupils symmetric, no HORNERS, EOMI, no facial, dec sensation mentalis area BL, no focal weakness, reflxes Patellar 3+, achilles 1+, plantars down) Imaging - Results MRI: Report Reviewed, Image Reviewed Problem List - Problems (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 The patient denies fever, diarrhea, chest pain or abdominal pain. She completed radiation 5 weeks ago and was scheduled to start chemotherapy today at 0830AM w/ Dr. Galvan. This is the patient's second round of chemotherapy, with the last round at approx 1 year ago. The daughter notes that the patient has had the symptoms of nausea and vomiting at the end of previous radiations and during chemotherapy, however this episode is not in closely associated with either. Additionally the patient has had a decrease in appetite for 2 days and headache for 3 days (initially frontal now occipital). Patient has no other complaints at bedside. as per pt she has noted R sided neck pain x 3 weeks as well as numbness of "teeth and lower chin " x 3 weeks MRI BRAIN IMPRESSION: Nonspecific diffuse nonspecific smooth dural thickening is noted along the cerebral convexities bilaterally - ? secondary to etiologies such as recent spinal tap with resultant intracranial hypotension, inflammatory/ infectious disease or neoplastic disease. The partially imaged upper cervical spine demonstrates nonspecific altered marrow signal intensity within the right C1 articular mass - ? representing marrow edema secondary to an arthritis versus possible neoplastic disease. There is also a small associated right C1- C2 joint effusion with synovial enhancement. Possible similar although less prominent altered marrow signal intensity is noted within the left C1 articular mass. Additional evaluation utilizing dedicated MRI and CT studies of the cervical spine is suggested. Mild bilateral frontal sinus mucosal thickening is noted. 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
--- NOTE | 2018-07-23 11:17 | PN ---
Progress Note (short form) - Note Progress Note: pt seen/ examined chart reviewed neck pain + no distress all consults / f/u noted/ appreciated Vital Signs Temp 97.6 F 07/23/18 10:00 Pulse 93 H 07/23/18 10:00 Resp 20 07/23/18 10:00 BP 117/68 07/23/18 10:00 Pulse Ox 94 L 07/23/18 09:00 Intake & Output 07/22/18 07/22/18 07/23/18 11:59 23:59 11:59 Intake Total 1130 550 Balance 1130 550 Intake: Oral 1130 550 Other: Voiding Method Toilet Toilet Toilet # Unmeasured Voids Void 1 1 2 Active Medications Al Hydroxide/Mg Hydroxide (Mylanta Oral Suspension -) 30 ml PO Q6H PRN PRN Reason: DYSPEPSIA Last Admin: 07/22/18 14:34 Dose: 30 ml Alprazolam (Xanax -) 1 mg PO [facility] Last Admin: 07/22/18 22:06 Dose: 1 mg Amitriptyline HCl (Elavil -) 25 mg PO [facility] Last Admin: 07/22/18 22:08 Dose: 25 mg Gabapentin (Neurontin -) 300 mg PO TID [facility] Last Admin: 07/23/18 05:54 Dose: 300 mg Heparin Sodium (Porcine) (Heparin -) 5,000 unit SQ BID [facility] Last Admin: 07/23/18 09:24 Dose: 5,000 unit Hydrochlorothiazide (Hctz -) 12.5 mg PO DAILY [facility] Last Admin: 07/23/18 09:24 Dose: 12.5 mg Lactobacillus Acidophilus (Bacid -) 1 tab PO DAILY [facility] Last Admin: 07/23/18 09:24 Dose: 1 tab Lisinopril (Prinivil) 10 mg PO DAILY [facility] Last Admin: 07/23/18 09:24 Dose: 10 mg Metoprolol Succinate (Toprol Xl -) 25 mg PO DAILY [facility] Last Admin: 07/23/18 09:24 Dose: 25 mg Ondansetron HCl (Zofran Injection) 4 mg IVPUSH Q4H PRN PRN Reason: NAUSEA AND/OR VOMITING Last Admin: 07/22/18 10:32 Dose: 4 mg Oxycodone HCl (Roxicodone -) 5 mg PO Q4H PRN PRN Reason: PAIN LEVEL 6-10 Last Admin: 07/22/18 20:28 Dose: 5 mg Pantoprazole Sodium (Protonix -) 40 mg PO DAILY [facility] Last Admin: 07/23/18 09:24 Dose: 40 mg CBC, BMP 07/19/18 06:30 07/19/18 06:30 Physical Exam s1 S2 RRR Tender rt side of neck , at occipital region Lungs clear Abd- soft, NT no edema neuro- alert/ awake PLAN continue present care LP planned will follow
--- NOTE | 2018-07-23 15:34 | PN ---
Progress Note (short form) - Note Progress Note: Patient seen and examined Discussed with Neurology Discussed with RT Discussed status with patient , daughter and at bedside. 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 Before therapy, need diagnostic prood . Need for repeat LP for CSF cytology discussed. Last Vital Signs Temp Pulse Resp BP Pulse Ox 97.6 F 93 H 20 117/68 94 L 07/23/18 10:00 07/23/18 10:00 07/23/18 10:00 07/23/18 10:00 07/23/18 09:00 HEENT: GLADYS, EOM Intact Cor: RSR, No murmurs, No gallops Lungs: Clear to P&A Ext:No significant edema Skin: No rashes, Integument intact CBC, BMP 07/19/18 06:30 07/19/18 06:30 Current Medications Generic Name Dose Route Start Last Admin Trade Name Freq PRN Reason Stop Dose Admin Al Hydroxide/Mg Hydroxide 30 ml 07/22/18 14:16 07/22/18 14:34 Mylanta Oral Suspension - PO 30 ml Q6H PRN Administration DYSPEPSIA Alprazolam 1 mg 07/15/18 22:00 07/22/18 22:06 Xanax - PO 1 mg HS [facility] Administration Amitriptyline HCl 25 mg 07/15/18 22:00 07/22/18 22:08 Elavil - PO 25 mg HS [facility] Administration Gabapentin 300 mg 07/21/18 14:00 07/23/18 13:24 Neurontin - PO 300 mg TID [facility] Administration Heparin Sodium (Porcine) 5,000 unit 07/15/18 22:00 07/23/18 09:24 Heparin - SQ 5,000 unit BID [facility] Administration Hydrochlorothiazide 12.5 mg 07/16/18 10:00 07/23/18 09:24 Hctz - PO 12.5 mg DAILY [facility] Administration Lactobacillus Acidophilus 1 tab 07/16/18 10:00 07/23/18 09:24 Bacid - PO 1 tab DAILY [facility] Administration Lisinopril 10 mg 07/16/18 10:00 07/23/18 09:24 Prinivil PO 10 mg DAILY [facility] Administration Metoprolol Succinate 25 mg 07/16/18 10:00 07/23/18 09:24 Toprol Xl - PO 25 mg DAILY [facility] Administration Ondansetron HCl 4 mg 07/15/18 12:40 07/22/18 10:32 Zofran Injection IVPUSH 4 mg Q4H PRN Administration NAUSEA AND/OR VOMITING Oxycodone HCl 5 mg 07/17/18 11:18 07/22/18 20:28 Roxicodone - PO 5 mg Q4H PRN Administration PAIN LEVEL 6-10 Pantoprazole Sodium 40 mg 07/19/18 10:00 07/23/18 09:24 Protonix - PO 40 mg DAILY [facility] Administration Impression: metastatic breast ca 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
--- NOTE | 2018-07-23 17:12 | CONSULT ---
Consult Consult Specialty:: Rheumatology - History of Present Illness History of Present Illness: 68 year old woman with a history of breast cancer with metastasic bone disease, admitted with a 5 week history of numbness in the chin, one week history of headaches, and nausea and vomiting on the day of admission. Five weeks ago she completed radiation courses to the pelvis and left femur and was scheduled to have chemotherapy on the day of admission. Five days ago she developed neck pain: she has chronic pain and episodes of shock like pain lasting dew seconds. She denied fever, diarrhea, chest pain or abdominal pain. 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 Work-up in the hospital: MRI of the brain reported with nonspecific diffuse smooth dural thickening noted along the cerebral convexities bilaterally. MRI of the cervical spine: Abnormal marrow signal associated with increase contrast enhancement seen within the C1 articular pillars bilaterally, right more than left, probably on the basis of neoplastic disease. LP (07/20/18): WBC 2, RBC 3, protein 62 and glucose 59. Labs: AST 103, ALT 97 and alkaline phosphatase 691 - History Source History Provided By: Patient, Family Member, Medical Record Limitations to Obtaining History: No Limitations - Past Medical History Cardio/Vascular: Yes: HTN Gastrointestinal: Yes: GERD Psych: Yes: Anxiety - Past Surgical History Past Surgical History: Yes: Cholecystectomy, Hysterectomy - Alcohol/Substance Use Hx Alcohol Use: No History of Substance Use: reports: None - Smoking History Smoking history: Never smoked Have you smoked in the past 12 months: No - Social History Usual Living Arrangement: With Child ADL: Independent History of Recent Travel: Yes (just returned from [facility] 01/19) Home Medications - Allergies Allergies/Adverse Reactions: Allergies Allergy/AdvReac Type Severity Reaction Status Date / Time No Known Drug Allergies Allergy Verified 02/15/18 22:35 - Home Medications Home Medications: Ambulatory Orders Alprazolam [Xanax] 1 mg PO HS 05/30/17 Gabapentin 300 mg PO TID 05/30/17 Lisinopril/Hydrochlorothiazide [Lisinopril-Hctz 10-12.5 mg Tab] 1 each PO DAILY 05/30/17 Metoprolol Succinate [Toprol Xl] 25 mg PO DAILY 05/30/17 Tramadol HCl 50 mg PO PRN 05/30/17 Oxycodone HCl/Acetaminophen [Oxycodon-Acetaminophen 7.5-325] 1 each PO Q4H PRN 02/05/18 Famotidine [Pepcid] 20 mg PO BID #60 tablet 02/21/18 Lactobacillus Acidophilus [Bacid -] 1 tab PO DAILY #30 tab 02/21/18 Amitriptyline HCl [Elavil -] 25 mg PO HS #30 tablet 05/13/18 Family Disease History - Family Disease History Family Disease History: CA: Brother, Sister Review of Systems - Review of Systems Constitutional: reports: Malaise Eyes: reports: No Symptoms HENT: reports: Other (Headache.) Neck: reports: Tenderness Cardiovascular: reports: No Symptoms Respiratory: reports: No Symptoms Gastrointestinal: reports: Nausea, Vomiting Musculoskeletal: reports: Other (Tenderness in neck, the right C-1st MCP and knees) Integumentary: reports: No Symptoms Neurological: reports: Other (Numbness in the chin) Physical Exam Vital Signs: Vital Signs Temperature 97.8 F 07/23/18 16:56 Pulse Rate 96 H 07/23/18 16:56 Respiratory Rate 20 07/23/18 16:56 Blood Pressure 136/68 07/23/18 16:56 O2 Sat by Pulse Oximetry (%) 94 L 07/23/18 09:00 Constitutional: Yes: Mild Distress Eyes: Yes: WNL HENT: Yes: WNL Neck: Yes: Tenderness Cardiovascular: Yes: WNL Respiratory: Yes: WNL Gastrointestinal: Yes: WNL Musculoskeletal: Yes: Other (neck tenderness and mild tenderness in knees.) Labs: CBC, BMP 07/19/18 06:30 07/19/18 06:30 Laboratory Tests 07/15/18 07/19/18 08:23 06:30 Creat Clearance w eGFR 71.76 Random Glucose 94 Calcium 8.0 L Total Bilirubin 0.3 AST 103 H ALT 97 H Alkaline Phosphatase 691 H Total Protein 6.2 L Albumin 3.0 L Urine Color Dk yellow Urine Appearance Clear Urine pH 6.0 Ur Specific [place] 1.022 Urine Protein 1+ H Urine Glucose (UA) Negative Urine Ketones Trace H Urine Blood Negative Urine Nitrite Negative Urine Bilirubin Negative Urine Urobilinogen 1.0 Ur Leukocyte Esterase Negative Urine WBC (Auto) 7 Urine RBC (Auto) 6 Urine Casts (Auto) 70 U Pathogenic Cast Auto None seen U Epithel Cells (Auto) 5.7 U Sm Round Cell (Auto) None seen Urine Bacteria (Auto) 3.9 Problem List - Problems (1) Cervicalgia Assessment/Plan: Neck pain and headaches probably related to metastasic disease to cervical spine. Probable metastasis to meninges. The patient does not have history of inflammatory arthritis either axial or peripheral. It is unlikely that the etiology of the pain is related to primary inflammation. She is scheduled to have a new LP on Thursday. Serjio Aquino MD Code(s): M54.2 - CERVICALGIA
[2018-07-23] MEDS: oxyCODONE HCL 5 MG TABLET PO PRN (18:53)
[2018-07-23] MEDS: ALPRAZolam 2 MG TABLET PO SCH (21:12)
[2018-07-23] MEDS: AMITRIPTYLINE HCL 25 MG TABLET (FP) PO SCH (21:12)
[2018-07-24] MEDS: oxyCODONE HCL 5 MG TABLET PO PRN ×2 (01:03→05:27)
[2018-07-24] MEDS: GABAPENTIN 300 MG CAPSULE (FP) PO SCH ×3 (05:27→21:05)
[2018-07-24 07:24] LABS: INR 1.01 (0.83-1.09); PROTHROMBIN TIME (PATIENT) 11.9 SEC (9.7-13.0)
[2018-07-24 07:25] LABS: BASO % 1.3 % (0-2.0); EOS % 3.2 % (0-4.5); HEMATOCRIT 28.8 % (32.4-45.2); HEMOGLOBIN 9.7 GM/dL (10.7-15.3); LYMPH % 28.6 % (8-40); MCH 27.5 pg (25.7-33.7); MCHC 33.5 g/dl (32.0-36.0); MEAN PLT VOLUME 7.1 fl (7.5-11.1); MONO % 11.5 % (3.8-10.2); NEUT % 55.4 % (42.8-82.8); PLATELET COUNT 220 K/MM3 (134-434); RBC 3.51 M/mm3 (3.60-5.2); RDW 13.6 % (11.6-15.6); WHITE BLOOD COUNT 3.4 K/mm3 (4.0-10.0)
[2018-07-24 08:01] LABS: ALBUMIN 3.3 g/dl (3.4-5.0); ALK PHOS 771 U/L (45-117); ANION GAP 11 MMOL/L (8-16); BILIRUBIN,TOTAL 0.6 mg/dL (0.2-1); BLOOD UREA NITROGEN 19 mg/dL (7-18); CALCIUM 8.2 mg/dL (8.5-10.1); CHLORIDE 102 mmol/L (98-107); CO2 24 mmol/L (21-32); CREATININE 1.1 mg/dL (0.55-1.3); GLUCOSE,RANDOM 86 mg/dL (74-106); MAGNESIUM 2.3 mg/dL (1.8-2.4); POTASSIUM 4.2 mmol/L (3.5-5.1); SGOT/AST 92 U/L (15-37); SGPT/ALT 132 U/L (13-61); SODIUM 136 mmol/L (136-145); TOT PROT 6.8 g/dl (6.4-8.2)
--- NOTE | 2018-07-24 10:39 | PN ---
Progress Note (short form) - Note Progress Note: pt seen/ examined awake/ comfortable headache / neck pain - better daughter at bedside no new issues all f/u noted/ appreciated LP planned for THURSDAY Vital Signs Temp 97.9 F 07/24/18 06:00 Pulse 95 H 07/24/18 06:00 Resp 20 07/24/18 06:00 BP 110/64 07/24/18 06:00 Pulse Ox 94 L 07/23/18 21:00 Intake & Output 07/23/18 07/23/18 07/24/18 11:59 23:59 11:59 Intake Total 550 Balance 550 Intake: Oral 550 Other: Voiding Method Toilet Toilet # Unmeasured Voids Void 2 2 Active Medications Al Hydroxide/Mg Hydroxide (Mylanta Oral Suspension -) 30 ml PO Q6H PRN PRN Reason: DYSPEPSIA Last Admin: 07/22/18 14:34 Dose: 30 ml Alprazolam (Xanax -) 1 mg PO HS [facility] Last Admin: 07/23/18 21:12 Dose: 1 mg Amitriptyline HCl (Elavil -) 25 mg PO HS [facility] Last Admin: 07/23/18 21:12 Dose: 25 mg Gabapentin (Neurontin -) 300 mg PO TID [facility] Last Admin: 07/24/18 05:27 Dose: 300 mg Heparin Sodium (Porcine) (Heparin -) 5,000 unit SQ BID [facility] Last Admin: 07/23/18 21:12 Dose: 5,000 unit Hydrochlorothiazide (Hctz -) 12.5 mg PO DAILY [facility] Last Admin: 07/23/18 09:24 Dose: 12.5 mg Lactobacillus Acidophilus (Bacid -) 1 tab PO DAILY [facility] Last Admin: 07/23/18 09:24 Dose: 1 tab Lisinopril (Prinivil) 10 mg PO DAILY [facility] Last Admin: 07/23/18 09:24 Dose: 10 mg Metoprolol Succinate (Toprol Xl -) 25 mg PO DAILY [facility] Last Admin: 07/23/18 09:24 Dose: 25 mg Ondansetron HCl (Zofran Injection) 4 mg IVPUSH Q4H PRN PRN Reason: NAUSEA AND/OR VOMITING Last Admin: 07/22/18 10:32 Dose: 4 mg Oxycodone HCl (Roxicodone -) 5 mg PO Q4H PRN PRN Reason: PAIN LEVEL 6-10 Last Admin: 07/24/18 05:27 Dose: 5 mg Pantoprazole Sodium (Protonix -) 40 mg PO DAILY [facility] Last Admin: 07/23/18 09:24 Dose: 40 mg CBC, BMP 07/24/18 07:00 07/24/18 07:00 Hepatic Panel Total Bilirubin 0.6 mg/dL (0.2-1) 07/24/18 07:00 AST 92 U/L (15-37) H 07/24/18 07:00 ALT 132 U/L (13-61) H 07/24/18 07:00 Alkaline Phosphatase 771 U/L (45-117) H 07/24/18 07:00 Albumin 3.3 g/dl (3.4-5.0) L 07/24/18 07:00 Physical Exam s1 S2 RRR Lungs clear Abd- soft, NT no edema neuro- alert/ awake PLAN continue present care LP planned lfts elevated 2 to mets ? 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
[2018-07-24 10:56] LABS: ANISOCYTOSIS 0; HELMET CELLS 0; HOWELL-JOLLY BODIES 0; MACROCYTOSIS 0; OVALOCYTE 0; PLATELET ESTIMATE NORMAL; ROULEAU 0; SICKELED CELLS 0; TARGET CELLS 0; TEAR DROP CELLS 0; TOXIC GRANULATION 0
[2018-07-24] MEDS: metoPROLOL SUCCINATE 25 MG TAB.SR.24H (FP) PO SCH (11:00)
[2018-07-24] MEDS: LACTOBACILLUS ACIDOPHILUS 1 TABLET PO SCH (11:00)
[2018-07-24] MEDS: HEPARIN NA (PORCINE) 5,000 UNITS/ML 1ML VIAL SQ SCH ×2 (11:00→21:05)
[2018-07-24] MEDS: LISINOPRIL 10 MG TABLET (FP) PO SCH (11:00)
[2018-07-24] MEDS: HYDROCHLOROTHIAZIDE 12.5 MG CAPSULE (FP) PO SCH (11:00)
[2018-07-24] MEDS: PANTOPRAZOLE 40 MG TABLET (FP) PO SCH (11:00)
[2018-07-24 12:22] LABS: ALBUMIN 3.7 g/dl (3.4-5.0); ALK PHOS 858 U/L (45-117); ANION GAP 11 MMOL/L (8-16); BILIRUBIN,TOTAL 0.4 mg/dL (0.2-1); BLOOD UREA NITROGEN 21 mg/dL (7-18); CALCIUM 8.6 mg/dL (8.5-10.1); CHLORIDE 100 mmol/L (98-107); CO2 24 mmol/L (21-32); CREATININE 1.2 mg/dL (0.55-1.3); GLUCOSE,RANDOM 162 mg/dL (74-106); POTASSIUM 4.3 mmol/L (3.5-5.1); SGOT/AST 109 U/L (15-37); SGPT/ALT 148 U/L (13-61); SODIUM 136 mmol/L (136-145); TOT PROT 7.7 g/dl (6.4-8.2)
--- NOTE | 2018-07-24 13:16 | CON.GI ---
Consult Consult Specialty:: GI Referred by:: Dr. Annie Amos Reason for Consultation:: Abnormal liver chemistries - History of Present Illness Chief Complaint: Neck pain History of Present Illness: 68F admitted for evaluation of vomiting 07/15/18. Asked to evaluate abnormal liver chemistries. 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 Asked to evaluate abnormal liver chemistries. Elevated from admission. No recent abdominal imaging. patient believes that her last PET scan was 1 year ago. 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 Denies abdominal pain. Denies h/o liver disease. - History Source History Provided By: Patient, Family Member, Medical Record Limitations to Obtaining History: No Limitations - Past Medical History Cardio/Vascular: Yes: HTN Gastrointestinal: Yes: GERD Heme/Onc: Yes: Cancer (Metastatic BCA) Psych: Yes: Anxiety - Past Surgical History Past Surgical History: Yes: Cholecystectomy, Hysterectomy - Alcohol/Substance Use Hx Alcohol Use: No History of Substance Use: reports: None - Smoking History Smoking history: Never smoked Have you smoked in the past 12 months: No - Social History Usual Living Arrangement: With Child ADL: Independent Place of : Other ([place]) Came to [place]year[place] 1975 History of Recent Travel: No Home Medications - Allergies Allergies/Adverse Reactions: Allergies Allergy/AdvReac Type Severity Reaction Status Date / Time No Known Drug Allergies Allergy Verified 02/15/18 22:35 - Home Medications Home Medications: Ambulatory Orders Alprazolam [Xanax] 1 mg PO HS 05/30/17 Gabapentin 300 mg PO TID 05/30/17 Lisinopril/Hydrochlorothiazide [Lisinopril-Hctz 10-12.5 mg Tab] 1 each PO DAILY 05/30/17 Metoprolol Succinate [Toprol Xl] 25 mg PO DAILY 05/30/17 Tramadol HCl 50 mg PO PRN 05/30/17 Oxycodone HCl/Acetaminophen [Oxycodon-Acetaminophen 7.5-325] 1 each PO Q4H PRN 02/05/18 Famotidine [Pepcid] 20 mg PO BID #60 tablet 02/21/18 Lactobacillus Acidophilus [Bacid -] 1 tab PO DAILY #30 tab 02/21/18 Amitriptyline HCl [Elavil -] 25 mg PO HS #30 tablet 05/13/18 Family Disease History - Family Disease History Family Disease History: CA: Brother, Sister Review of Systems - Review of Systems Constitutional: reports: Fever (tactile) Cardiovascular: denies: Chest Pain Respiratory: denies: Cough Gastrointestinal: reports: Vomiting (Resolved from admission). denies: Abdominal Pain, Melena, Rectal Bleeding Musculoskeletal: reports: Back Pain Neurological: denies: Parasthesia Physical Exam-GI Vital Signs: Vital Signs Temperature 99.6 F Rectal 07/24/18 1300 Pulse Rate 07/24/18 1300 Respiratory Rate 07/24/18 1300 Blood Pressure 07/24/18 1300 O2 Sat by Pulse Oximetry (%) 07/23/18 1300 Constitutional: Yes: Calm Eyes: No: Sclera Icterus Cardiovascular: Yes: Regular Rate and Rhythm Respiratory: Yes: CTA Bilaterally Gastrointestinal Inspection: Yes: Scars (healed trochar scars) ...Auscultate: Yes: Normoactive Bowel Sounds ...Palpate: Yes: Soft. No: Hepatomegaly, Splenomegaly, Tenderness ...Percussion: No: Tympanitic Edema: No (No LE edema) Neurological: Yes: Alert Labs: CBC, BMP 07/24/18 07:00 07/24/18 10:53 INR, PTT INR 1.01 (0.83-1.09) 07/24/18 07:00 Hepatic Panel Total Bilirubin 0.4 mg/dL (0.2-1) 07/24/18 10:53 AST 109 U/L (15-37) H 07/24/18 10:53 ALT 148 U/L (13-61) H 07/24/18 10:53 Alkaline Phosphatase 858 U/L (45-117) H 07/24/18 10:53 Albumin 3.7 g/dl (3.4-5.0) 07/24/18 10:53 Problem List - Problems (1) Abnormal liver function tests Assessment/Plan: I suspect that elevated ALP is relfective of bony disease burden. Ordered MRI/ MRCP to further evaluate for parenchymal liver disease and biliary tract pathology. explained to Ms. Ta. Screening hepatitis serologies Monitor LFTs Code(s): R94.5 - ABNORMAL RESULTS OF LIVER FUNCTION STUDIES
--- NOTE | 2018-07-24 19:28 | PN ---
Progress Note, Physician History of Present Illness: C/o neck pain and "pinches" in the head. Has some discomfort in right calf. - Current Medication List Current Medications: Active Medications Al Hydroxide/Mg Hydroxide (Mylanta Oral Suspension -) 30 ml PO Q6H PRN PRN Reason: DYSPEPSIA Last Admin: 07/22/18 14:34 Dose: 30 ml Alprazolam (Xanax -) 1 mg PO HS [facility] Last Admin: 07/23/18 21:12 Dose: 1 mg Amitriptyline HCl (Elavil -) 25 mg PO HS [facility] Last Admin: 07/23/18 21:12 Dose: 25 mg Gabapentin (Neurontin -) 300 mg PO TID [facility] Last Admin: 07/24/18 14:48 Dose: 300 mg Heparin Sodium (Porcine) (Heparin -) 5,000 unit SQ BID [facility] Last Admin: 07/24/18 11:00 Dose: 5,000 unit Hydrochlorothiazide (Hctz -) 12.5 mg PO DAILY [facility] Last Admin: 07/24/18 11:00 Dose: 12.5 mg Lactobacillus Acidophilus (Bacid -) 1 tab PO DAILY [facility] Last Admin: 07/24/18 11:00 Dose: 1 tab Lisinopril (Prinivil) 10 mg PO DAILY [facility] Last Admin: 07/24/18 11:00 Dose: 10 mg Metoprolol Succinate (Toprol Xl -) 25 mg PO DAILY [facility] Last Admin: 07/24/18 11:00 Dose: 25 mg Ondansetron HCl (Zofran Injection) 4 mg IVPUSH Q4H PRN PRN Reason: NAUSEA AND/OR VOMITING Last Admin: 07/22/18 10:32 Dose: 4 mg Oxycodone HCl (Roxicodone -) 5 mg PO Q4H PRN PRN Reason: PAIN LEVEL 6-10 Last Admin: 07/24/18 05:27 Dose: 5 mg - Objective Vital Signs: Vital Signs Temperature 98.1 F 07/24/18 16:11 Pulse Rate 83 07/24/18 16:11 Respiratory Rate 20 07/24/18 16:11 Blood Pressure 113/63 07/24/18 16:11 O2 Sat by Pulse Oximetry (%) 94 L 07/23/18 21:00 Constitutional: Yes: Well Nourished, No Distress Eyes: Yes: Conjunctiva Clear Cardiovascular: Yes: WNL Respiratory: Yes: WNL, CTA Bilaterally Gastrointestinal: Yes: Soft Edema: No Labs: CBC, BMP 07/24/18 07:00 07/24/18 10:53 INR, PTT INR 1.01 (0.83-1.09) 07/24/18 07:00 Assessment/Plan 68F w/metastatic breast cancer, s/p several lines of therapy, admitted with neck pain, chin numbness, headaches, vomiting. MRI brain with nonspecific dural enhancement. Concern for leptominingeal disease. First LP non-diagnostic ( cytology negative). Plan for repeat on Thursday. Consider LE doppler given RLE discomfort.
[2018-07-24] MEDS: ALPRAZolam 2 MG TABLET PO SCH (21:05)
[2018-07-24] MEDS: AMITRIPTYLINE HCL 25 MG TABLET (FP) PO SCH (21:05)
[2018-07-25] MEDS: GABAPENTIN 300 MG CAPSULE (FP) PO SCH ×3 (05:15→21:31)
[2018-07-25 07:02] LABS: EOS % 2.5 % (0-4.5); HEMATOCRIT 29.3 % (32.4-45.2); HEMOGLOBIN 10.1 GM/dL (10.7-15.3); LYMPH % 24.4 % (8-40); MCH 27.9 pg (25.7-33.7); MCHC 34.3 g/dl (32.0-36.0); MEAN CELL VOLUME 81.2 fl (80-96); MEAN PLT VOLUME 7.2 fl (7.5-11.1); MONO % 11.6 % (3.8-10.2); NEUT % 60.5 % (42.8-82.8); PLATELET COUNT 232 K/MM3 (134-434); RBC 3.61 M/mm3 (3.60-5.2); RDW 13.2 % (11.6-15.6); WHITE BLOOD COUNT 3.6 K/mm3 (4.0-10.0)
[2018-07-25 07:32] LABS: ALBUMIN 3.4 g/dl (3.4-5.0); BILIRUBIN,DIRECT 0.2 mg/dL (0.0-0.2); BILIRUBIN,TOTAL 0.5 mg/dL (0.2-1)
[2018-07-25] MEDS: metoPROLOL SUCCINATE 25 MG TAB.SR.24H (FP) PO SCH (09:27)
[2018-07-25] MEDS: LACTOBACILLUS ACIDOPHILUS 1 TABLET PO SCH (09:27)
[2018-07-25] MEDS: HYDROCHLOROTHIAZIDE 12.5 MG CAPSULE (FP) PO SCH (09:27)
[2018-07-25] MEDS: LISINOPRIL 10 MG TABLET (FP) PO SCH (09:27)
[2018-07-25] MEDS: HEPARIN NA (PORCINE) 5,000 UNITS/ML 1ML VIAL SQ SCH ×2 (09:27→21:31)
[2018-07-25 10:53] LABS: ANISOCYTOSIS 0; HELMET CELLS 0; HOWELL-JOLLY BODIES 0; MACROCYTOSIS 0; OVALOCYTE 0; PLATELET ESTIMATE NORMAL; ROULEAU 0; SICKELED CELLS 0; TARGET CELLS 0; TEAR DROP CELLS 0; TOXIC GRANULATION 0
--- NOTE | 2018-07-25 11:17 | PN ---
Progress Note (short form) - Note Progress Note: pt seen/ examined awake/ comfortable says sometimes has shooting pain in head- otherwise ok all f/u noted pt denies pain in calf -- but says sometimes right knee hurts will order u/s any ways to check on dvt.-- obviously has high risk pt. gi consult also noted/ appreciated Vital Signs Temp 98.3 F 07/25/18 06:00 Pulse 95 H 07/25/18 06:00 Resp 20 07/25/18 06:00 BP 126/71 07/25/18 06:00 Pulse Ox 94 L 07/23/18 21:00 Intake & Output 07/24/18 07/24/18 07/25/18 11:59 23:59 11:59 Intake Total 300 450 200 Balance 300 450 200 Intake: Oral 300 450 200 Other: Voiding Method Toilet Toilet # Unmeasured Voids Void 1 Bowel Movement No No Active Medications Al Hydroxide/Mg Hydroxide (Mylanta Oral Suspension -) 30 ml PO Q6H PRN PRN Reason: DYSPEPSIA Last Admin: 07/22/18 14:34 Dose: 30 ml Alprazolam (Xanax -) 1 mg PO HS [facility] Last Admin: 07/24/18 21:05 Dose: 1 mg Amitriptyline HCl (Elavil -) 25 mg PO HS [facility] Last Admin: 07/24/18 21:05 Dose: 25 mg Gabapentin (Neurontin -) 300 mg PO TID [facility] Last Admin: 07/25/18 05:15 Dose: 300 mg Heparin Sodium (Porcine) (Heparin -) 5,000 unit SQ BID [facility] Last Admin: 07/25/18 09:27 Dose: 5,000 unit Hydrochlorothiazide (Hctz -) 12.5 mg PO DAILY [facility] Last Admin: 07/25/18 09:27 Dose: 12.5 mg Lactobacillus Acidophilus (Bacid -) 1 tab PO DAILY [facility] Last Admin: 07/25/18 09:27 Dose: 1 tab Lisinopril (Prinivil) 10 mg PO DAILY [facility] Last Admin: 07/25/18 09:27 Dose: 10 mg Metoprolol Succinate (Toprol Xl -) 25 mg PO DAILY [facility] Last Admin: 07/25/18 09:27 Dose: 25 mg Ondansetron HCl (Zofran Injection) 4 mg IVPUSH Q4H PRN PRN Reason: NAUSEA AND/OR VOMITING Last Admin: 07/22/18 10:32 Dose: 4 mg Oxycodone HCl (Roxicodone -) 5 mg PO Q4H PRN PRN Reason: PAIN LEVEL 6-10 Last Admin: 07/24/18 05:27 Dose: 5 mg CBC, BMP 07/25/18 06:30 07/24/18 10:53 u/s liver-- Noted Physical Exam s1 S2 RRR Lungs clear Abd- soft, NT no edema neuro- alert/ awake No calf tenderness / swelling knees- no reddness/ swelling PLAN continue present care LP planned for tomorrow serology pending mri - abd - ordered by gi u/s legs-- ro dvt Problem List - Problems (1) Cervicalgia Code(s): M54.2 - CERVICALGIA (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
[2018-07-25] MEDS: MAG HYDROX/AL HYDROX/SIMETH 30 ML UNIT-DOSE CUP PO PRN ×2 (15:30→20:29)
--- NOTE | 2018-07-25 19:44 | PN ---
Progress Note, Physician History of Present Illness: Neck pain a little better. Ruled out for DVT - Current Medication List Current Medications: Active Medications Al Hydroxide/Mg Hydroxide (Mylanta Oral Suspension -) 30 ml PO Q6H PRN PRN Reason: DYSPEPSIA Last Admin: 07/25/18 15:30 Dose: 30 ml Alprazolam (Xanax -) 1 mg PO HS [facility] Last Admin: 07/24/18 21:05 Dose: 1 mg Amitriptyline HCl (Elavil -) 25 mg PO HS [facility] Last Admin: 07/24/18 21:05 Dose: 25 mg Gabapentin (Neurontin -) 300 mg PO TID [facility] Last Admin: 07/25/18 15:30 Dose: 300 mg Heparin Sodium (Porcine) (Heparin -) 5,000 unit SQ BID [facility] Last Admin: 07/25/18 09:27 Dose: 5,000 unit Hydrochlorothiazide (Hctz -) 12.5 mg PO DAILY [facility] Last Admin: 07/25/18 09:27 Dose: 12.5 mg Lactobacillus Acidophilus (Bacid -) 1 tab PO DAILY [facility] Last Admin: 07/25/18 09:27 Dose: 1 tab Lisinopril (Prinivil) 10 mg PO DAILY [facility] Last Admin: 07/25/18 09:27 Dose: 10 mg Metoprolol Succinate (Toprol Xl -) 25 mg PO DAILY [facility] Last Admin: 07/25/18 09:27 Dose: 25 mg Ondansetron HCl (Zofran Injection) 4 mg IVPUSH Q4H PRN PRN Reason: NAUSEA AND/OR VOMITING Last Admin: 07/22/18 10:32 Dose: 4 mg - Objective Vital Signs: Vital Signs Temperature 98.8 F 07/25/18 16:11 Pulse Rate 87 07/25/18 16:11 Respiratory Rate 20 07/25/18 16:11 Blood Pressure 119/63 07/25/18 16:11 O2 Sat by Pulse Oximetry (%) 94 L 07/23/18 21:00 Constitutional: Yes: Well Nourished, No Distress Eyes: Yes: Conjunctiva Clear Cardiovascular: Yes: WNL, Regular Rate and Rhythm Respiratory: Yes: Regular, CTA Bilaterally Gastrointestinal: Yes: Soft Edema: No Labs: CBC, BMP 07/25/18 06:30 07/24/18 10:53 INR, PTT INR 1.01 (0.83-1.09) 07/24/18 07:00 Assessment/Plan 68F w/metastatic breast cancer, s/p several lines of therapy, admitted with neck pain, chin numbness, headaches, vomiting. MRI brain with nonspecific dural enhancement. Concern for leptominingeal disease. First LP non-diagnostic ( cytology negative). Planned for repeat on Thursday.
[2018-07-25] MEDS: AMITRIPTYLINE HCL 25 MG TABLET (FP) PO SCH (21:31)
[2018-07-25] MEDS: ALPRAZolam 2 MG TABLET PO SCH (21:31)
[2018-07-26] MEDS: GABAPENTIN 300 MG CAPSULE (FP) PO SCH ×3 (06:02→21:13)
[2018-07-26] MEDS: metoPROLOL SUCCINATE 25 MG TAB.SR.24H (FP) PO SCH (09:00)
[2018-07-26] MEDS: LACTOBACILLUS ACIDOPHILUS 1 TABLET PO SCH (09:01)
[2018-07-26] MEDS: LISINOPRIL 10 MG TABLET (FP) PO SCH (09:01)
[2018-07-26] MEDS: HYDROCHLOROTHIAZIDE 12.5 MG CAPSULE (FP) PO SCH (09:01)
[2018-07-26] MEDS: HEPARIN NA (PORCINE) 5,000 UNITS/ML 1ML VIAL SQ SCH ×2 (09:01→21:14)
--- NOTE | 2018-07-26 10:34 | PN ---
Progress Note (short form) - Note Progress Note: awake/ comfortable no new issues son at bedside for LP today u/s ---ve for dvt mri/mrcp pending for liver disease Headache better today so far. Vital Signs Temp 98.1 F 07/26/18 09:00 Pulse 98 H 07/26/18 09:00 Resp 20 07/26/18 09:00 BP 136/79 07/26/18 09:00 Pulse Ox 99 07/25/18 21:00 Intake & Output 07/25/18 07/25/18 07/26/18 11:59 23:59 11:59 Intake Total 200 750 580 Output Total 2 Balance 200 748 580 Intake: Oral 200 750 580 Output: Urine 2 Void 2 Other: Voiding Method Toilet Toilet Toilet # Unmeasured Voids Void 1 1 Bowel Movement No No Active Medications Al Hydroxide/Mg Hydroxide (Mylanta Oral Suspension -) 30 ml PO Q6H PRN PRN Reason: DYSPEPSIA Last Admin: 07/25/18 20:29 Dose: 30 ml Alprazolam (Xanax -) 1 mg PO HS [facility] Last Admin: 07/25/18 21:31 Dose: 1 mg Amitriptyline HCl (Elavil -) 25 mg PO HS [facility] Last Admin: 07/25/18 21:31 Dose: 25 mg Gabapentin (Neurontin -) 300 mg PO TID [facility] Last Admin: 07/26/18 06:02 Dose: 300 mg Heparin Sodium (Porcine) (Heparin -) 5,000 unit SQ BID [facility] Last Admin: 07/26/18 09:01 Dose: Not Given Hydrochlorothiazide (Hctz -) 12.5 mg PO DAILY [facility] Last Admin: 07/26/18 09:01 Dose: 12.5 mg Lactobacillus Acidophilus (Bacid -) 1 tab PO DAILY [facility] Last Admin: 07/26/18 09:01 Dose: 1 tab Lisinopril (Prinivil) 10 mg PO DAILY [facility] Last Admin: 07/26/18 09:01 Dose: 10 mg Metoprolol Succinate (Toprol Xl -) 25 mg PO DAILY [facility] Last Admin: 07/26/18 09:00 Dose: 25 mg Ondansetron HCl (Zofran Injection) 4 mg IVPUSH Q4H PRN PRN Reason: NAUSEA AND/OR VOMITING Last Admin: 07/22/18 10:32 Dose: 4 mg CBC, BMP 07/25/18 06:30 07/24/18 10:53 Physical Exam s1 S2 RRR Lungs clear Abd- soft, NT no edema neuro- alert/ awake PLAN continue present care LP planned for today serology pending mri - abd - ordered by gi u/s legs-- ro dvt--- ve will follow. 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
[2018-07-26 14:04] LABS: CSF APPEARANCE CLEAR; CSF COLOR COLORLESS
[2018-07-26 14:05] LABS: CSF WBC 3
[2018-07-26] MEDS: oxyCODONE HCL 5 MG TABLET PO PRN (15:00)
--- NOTE | 2018-07-26 16:25 | PN ---
Physical Exam: SUBJECTIVE: Patient seen and examined at bedside with family at bedside as well. Pt reports DEVRIES again similar to DEVRIES she has been having for this admission. No N/V, blurry vision, dizziness currently. Had LP this AM. OBJECTIVE: Vital Signs Period Temp Pulse Resp BP Sys/Nuñez Pulse Ox Last 24 Hr 98 F-98.7 F 80-104 18-20 133-143/67-79 99-99 GENERAL: The patient is awake, alert, and fully oriented, in mild distress from DEVRIES. ENT: Ears normal, nares patent. LUNGS: Breath sounds equal, clear to auscultation bilaterally HEART: Regular rate and rhythm, S1, S2 ABDOMEN: Soft, nontender, nondistended EXTREMITIES: no edema. NEUROLOGICAL: Normal speech, gait not observed. SKIN: Warm, dry Laboratory Results - last 24 hr 07/26/18 07/26/18 07/26/18 11:30 11:30 11:30 CSF Appearance Clear CSF Color Colorless CSF WBC 3 CSF RBC 71 CSF Neutrophils No Result Required. CSF Lymphocytes No Result Required. CSF Eosinophils No Result Required. CSF Basophils No Result Required. CSF Macrophages No Result Required. CSF Plasma Cells No Result Required. CSF Diff Comment No Result Required. CSF Comment No Result Required. CSF Glucose 68 CSF Total Protein 90 H Active Medications Generic Name Dose Route Start Last Admin Trade Name Freq PRN Reason Stop Dose Admin Al Hydroxide/Mg Hydroxide 30 ml 07/22/18 14:16 07/25/18 20:29 Mylanta Oral Suspension - PO 30 ml Q6H PRN Administration DYSPEPSIA Alprazolam 1 mg 07/15/18 22:00 07/25/18 21:31 Xanax - PO 1 mg HS [facility] Administration Amitriptyline HCl 25 mg 07/15/18 22:00 07/25/18 21:31 Elavil - PO 25 mg HS [facility] Administration Gabapentin 300 mg 07/21/18 14:00 07/26/18 13:11 Neurontin - PO 300 mg TID [facility] Administration Heparin Sodium (Porcine) 5,000 unit 07/15/18 22:00 07/26/18 09:01 Heparin - SQ Not Given BID [facility] Hydrochlorothiazide 12.5 mg 07/16/18 10:00 07/26/18 09:01 Hctz - PO 12.5 mg DAILY [facility] Administration Lactobacillus Acidophilus 1 tab 07/16/18 10:00 07/26/18 09:01 Bacid - PO 1 tab DAILY [facility] Administration Lisinopril 10 mg 07/16/18 10:00 07/26/18 09:01 Prinivil PO 10 mg DAILY [facility] Administration Metoprolol Succinate 25 mg 07/16/18 10:00 07/26/18 09:00 Toprol Xl - PO 25 mg DAILY [facility] Administration Ondansetron HCl 4 mg 07/15/18 12:40 07/22/18 10:32 Zofran Injection IVPUSH 4 mg Q4H PRN Administration NAUSEA AND/OR VOMITING Oxycodone HCl 5 mg 07/26/18 14:53 07/26/18 15:00 Roxicodone - PO 5 mg Q4H PRN Administration PAIN LEVEL ASSESSMENT/PLAN: 68 y/o F w/PMH of metastatic breast ca s/p several lines of therapy who is being worked up for DEVRIES. -DEVRIES -possible leptominigeal disease -MRI brain showed nonspecific dural enhancemen -Initial LP was non-diagnostic with negative cytology -Repeat LP done today, pending results -f/u results -Pain control for headaches . Visit type - Emergency Visit Emergency Visit: Yes ED Registration Date: 07/17/18 Care time: The patient presented to the Emergency Department on the above date and was hospitalized for further evaluation of their emergent condition. - New Patient This patient is new to me today: Yes Date on this admission: 07/26/18 - Critical Care Critical Care patient: No
[2018-07-26] MEDS: ALPRAZolam 2 MG TABLET PO SCH (21:13)
[2018-07-26] MEDS: AMITRIPTYLINE HCL 25 MG TABLET (FP) PO SCH (21:16)
[2018-07-26] MEDS ORDERED: PT OWN MED DRAWER 7, Y5N ONE (21:16)
--- NOTE | 2018-07-26 23:12 | PN ---
Teaching Attending Note Name of Resident: Nas Cruz ATTENDING PHYSICIAN STATEMENT I saw and evaluated the patient. I reviewed the resident's note and discussed the case with the resident. I agree with the resident's findings and plan as documented. 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 check cTc/a/p
[2018-07-27 02:11] LABS: HEP.C VIRUS AB <0.1 s/co ratio (0.0-0.9)
[2018-07-27] MEDS: GABAPENTIN 300 MG CAPSULE (FP) PO SCH ×3 (05:39→22:42)
[2018-07-27] MEDS: HYDROCHLOROTHIAZIDE 12.5 MG CAPSULE (FP) PO SCH (09:23)
[2018-07-27] MEDS: LISINOPRIL 10 MG TABLET (FP) PO SCH (09:23)
[2018-07-27] MEDS: HEPARIN NA (PORCINE) 5,000 UNITS/ML 1ML VIAL SQ SCH ×2 (09:23→22:07)
[2018-07-27] MEDS: LACTOBACILLUS ACIDOPHILUS 1 TABLET PO SCH (09:23)
[2018-07-27] MEDS: metoPROLOL SUCCINATE 25 MG TAB.SR.24H (FP) PO SCH (09:23)
[2018-07-27] MEDS ORDERED: ALPRAZolam 2 MG TABLET PO PRN (10:19)
--- NOTE | 2018-07-27 10:21 | PN ---
Progress Note (short form) - Note Progress Note: headaches- better with pain meds and rt sided neck pain has persistent numbness to chin does not want another MRI,MRCP- s/p second LP yesterday Vital Signs - 24 hr 07/26/18 07/26/18 07/26/18 14:05 17:21 21:00 Temperature 98.7 F 98.4 F Pulse Rate 104 H 96 H Respiratory 18 18 Rate Blood Pressure 143/77 139/73 O2 Sat by Pulse 99 Oximetry (%) 07/27/18 06:39 Temperature 97.8 F Pulse Rate 92 H Respiratory 20 Rate Blood Pressure 132/66 O2 Sat by Pulse Oximetry (%) Current Medications Generic Name Dose Route Start Last Admin Trade Name Freq PRN Reason Stop Dose Admin Al Hydroxide/Mg Hydroxide 30 ml 07/22/18 14:16 07/25/18 20:29 Mylanta Oral Suspension - PO 30 ml Q6H PRN Administration DYSPEPSIA Alprazolam 1 mg 07/27/18 10:19 Xanax - PO TID PRN ANXIETY Amitriptyline HCl 25 mg 07/15/18 22:00 07/26/18 21:16 Elavil - PO 25 mg HS [facility] Administration Gabapentin 300 mg 07/21/18 14:00 07/27/18 05:39 Neurontin - PO 300 mg TID [facility] Administration Heparin Sodium (Porcine) 5,000 unit 07/15/18 22:00 07/27/18 09:23 Heparin - SQ 5,000 unit BID [facility] Administration Hydrochlorothiazide 12.5 mg 07/16/18 10:00 07/27/18 09:23 Hctz - PO 12.5 mg DAILY [facility] Administration Lactobacillus Acidophilus 1 tab 07/16/18 10:00 07/27/18 09:23 Bacid - PO 1 tab DAILY [facility] Administration Lisinopril 10 mg 07/16/18 10:00 07/27/18 09:23 Prinivil PO 10 mg DAILY [facility] Administration Metoprolol Succinate 25 mg 07/16/18 10:00 07/27/18 09:23 Toprol Xl - PO 25 mg DAILY [facility] Administration Ondansetron HCl 4 mg 07/15/18 12:40 07/22/18 10:32 Zofran Injection IVPUSH 4 mg Q4H PRN Administration NAUSEA AND/OR VOMITING Oxycodone HCl 5 mg 07/26/18 14:53 07/26/18 15:00 Roxicodone - PO 5 mg Q4H PRN Administration PAIN LEVEL Laboratory Results - last 24 hr 07/25/18 07/25/18 07/26/18 06:30 06:30 11:30 CSF Appearance CSF Color CSF WBC CSF RBC CSF Neutrophils CSF Lymphocytes CSF Eosinophils CSF Basophils CSF Macrophages CSF Plasma Cells CSF Diff Comment CSF Comment CSF Glucose 68 CSF Total Protein Hepatitis A IgM Ab Negative Hep Bs Antigen Negative Hep B Core IgM Ab Negative Hep C Ab Diagnostic 0.1 Hepatitis C Antibody <0.1 07/26/18 07/26/18 11:30 11:30 CSF Appearance Clear CSF Color Colorless CSF WBC 3 CSF RBC 71 CSF Neutrophils No Result Required. CSF Lymphocytes No Result Required. CSF Eosinophils No Result Required. CSF Basophils No Result Required. CSF Macrophages No Result Required. CSF Plasma Cells No Result Required. CSF Diff Comment No Result Required. CSF Comment No Result Required. CSF Glucose CSF Total Protein 90 H Hepatitis A IgM Ab Hep Bs Antigen Hep B Core IgM Ab Hep C Ab Diagnostic Hepatitis C Antibody s1 S2 RRR Tender rt side of neck , at occipital region no LNE Lungs clear Abd- soft, NT no edema PLAN pain control check labs GI eval noted-- MRCP better test to look at biliary tract-- explained to pt continue with meds pending cytology result Problem List - Problems (1) Hyponatremia Code(s): E87.1 - HYPO-OSMOLALITY AND HYPONATREMIA (2) Vomiting Code(s): R11.10 - VOMITING, UNSPECIFIED (3) Breast cancer, left breast Code(s): C50.912 - MALIGNANT NEOPLASM OF UNSPECIFIED SITE OF LEFT FEMALE BREAST Qualifiers: Breast location: lower inner quadrant of breast Patient sex: female
[2018-07-27 11:36] LABS: ALBUMIN 3.9 g/dl (3.4-5.0); ALK PHOS 991 U/L (45-117); ANION GAP 9 MMOL/L (8-16); BILIRUBIN,TOTAL 0.5 mg/dL (0.2-1); BLOOD UREA NITROGEN 19 mg/dL (7-18); CALCIUM 9.3 mg/dL (8.5-10.1); CHLORIDE 98 mmol/L (98-107); CO2 25 mmol/L (21-32); CREATININE 1.1 mg/dL (0.55-1.3); GLUCOSE,RANDOM 104 mg/dL (74-106); POTASSIUM 4.5 mmol/L (3.5-5.1); SGOT/AST 107 U/L (15-37); SGPT/ALT 122 U/L (13-61); SODIUM 131 mmol/L (136-145); TOT PROT 8.1 g/dl (6.4-8.2)
--- NOTE | 2018-07-27 13:01 | PN ---
Progress Note (short form) - Note Progress Note: Patient agreeable to have MRI performed. Await MRI Problem List - Problems (1) Abnormal liver function tests Code(s): R94.5 - ABNORMAL RESULTS OF LIVER FUNCTION STUDIES
[2018-07-27 13:16] LABS: HBSAG SCREEN Negative (Negative); HEP A AB, IGM Negative (Negative); HEP B CORE AB, TOT Negative (Negative)
--- NOTE | 2018-07-27 14:22 | PN ---
Physical Exam: SUBJECTIVE: Patient seen and examined at bedside. Feeling better today. Last time taking pain medication was last night and DEVRIES have subsided since then. Is agreeable for MRI abd today. OBJECTIVE: Vital Signs Period Temp Pulse Resp BP Sys/Nuñez Pulse Ox Last 24 Hr 97.8 F-98.4 F 92-97 18-20 127-139/66-73 99-99 GENERAL: The patient is awake, alert, and fully oriented, in mild distress from DEVRIES. ENT: Ears normal, nares patent. LUNGS: Breath sounds equal, clear to auscultation bilaterally HEART: Regular rate and rhythm, S1, S2 ABDOMEN: Soft, nontender, nondistended EXTREMITIES: no edema. NEUROLOGICAL: Normal speech, gait not observed. SKIN: Warm, dry Laboratory Results - last 24 hr 07/25/18 07/25/18 07/27/18 06:30 06:30 10:40 Sodium 131 L Potassium 4.5 Chloride 98 Carbon Dioxide 25 Anion Gap 9 BUN 19 H Creatinine 1.1 Creat Clearance w eGFR 49.69 Random Glucose 104 Calcium 9.3 Total Bilirubin 0.5 AST 107 H ALT 122 H Alkaline Phosphatase 991 H Total Protein 8.1 Albumin 3.9 Hepatitis A IgM Ab Negative Hep A IgM Ab Confirm Negative Hepatitis A Ab Total Positive H Hep Bs Antigen Negative Negative Hep Bs Antibody Non reactive Hep B Core Total Ab Negative Hep B Core IgM Ab Negative Hep C Ab Diagnostic 0.1 Hepatitis C Antibody <0.1 Active Medications Generic Name Dose Route Start Last Admin Trade Name Freq PRN Reason Stop Dose Admin Al Hydroxide/Mg Hydroxide 30 ml 07/22/18 14:16 07/25/18 20:29 Mylanta Oral Suspension - PO 30 ml Q6H PRN Administration DYSPEPSIA Alprazolam 1 mg 07/27/18 10:19 Xanax - PO TID PRN ANXIETY Amitriptyline HCl 25 mg 07/15/18 22:00 07/26/18 21:16 Elavil - PO 25 mg HS [facility] Administration Gabapentin 300 mg 07/21/18 14:00 07/27/18 05:39 Neurontin - PO 300 mg TID [facility] Administration Heparin Sodium (Porcine) 5,000 unit 07/15/18 22:00 07/27/18 09:23 Heparin - SQ 5,000 unit BID [facility] Administration Hydrochlorothiazide 12.5 mg 07/16/18 10:00 07/27/18 09:23 Hctz - PO 12.5 mg DAILY [facility] Administration Lactobacillus Acidophilus 1 tab 07/16/18 10:00 07/27/18 09:23 Bacid - PO 1 tab DAILY [facility] Administration Lisinopril 10 mg 07/16/18 10:00 07/27/18 09:23 Prinivil PO 10 mg DAILY [facility] Administration Metoprolol Succinate 25 mg 07/16/18 10:00 07/27/18 09:23 Toprol Xl - PO 25 mg DAILY [facility] Administration Ondansetron HCl 4 mg 07/15/18 12:40 07/22/18 10:32 Zofran Injection IVPUSH 4 mg Q4H PRN Administration NAUSEA AND/OR VOMITING Oxycodone HCl 5 mg 07/26/18 14:53 07/26/18 15:00 Roxicodone - PO 5 mg Q4H PRN Administration PAIN LEVEL ASSESSMENT/PLAN: 68 y/o F w/PMH of metastatic breast ca s/p several lines of therapy who is being worked up for DEVRIES. 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 Neuro recs. -Considering starting non-intrathecal chemo vs further investigation with LPs vs possible [place] for further investigation of CSF and treatment if positive. Pt to consider options. -Pain control for headaches -Elevated LFTs -Pt agreeable to do MRI today. Being followed by GI -LFTs continue to trend up, no reports of abd pain, nausea, vomiting. Visit type - Emergency Visit Emergency Visit: Yes ED Registration Date: 07/17/18 Care time: The patient presented to the Emergency Department on the above date and was hospitalized for further evaluation of their emergent condition. - New Patient This patient is new to me today: No - Critical Care Critical Care patient: No
--- NOTE | 2018-07-27 17:17 | PN ---
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 The patient denies fever, diarrhea, chest pain or abdominal pain. She completed radiation 5 weeks ago and was scheduled to start chemotherapy today at 0830AM w/ Dr. Galvan. This is the patient's second round of chemotherapy, with the last round at approx 1 year ago. The daughter notes that the patient has had the symptoms of nausea and vomiting at the end of previous radiations and during chemotherapy, however this episode is not in closely associated with either. Additionally the patient has had a decrease in appetite for 2 days and headache for 3 days (initially frontal now occipital). STUDIES : MRI BRAIN IMPRESSION: Nonspecific diffuse nonspecific smooth dural thickening is noted along the cerebral convexities bilaterally - ? secondary to etiologies such as recent spinal tap with resultant intracranial hypotension, inflammatory/ infectious disease or neoplastic disease. The partially imaged upper cervical spine demonstrates nonspecific altered marrow signal intensity within the right C1 articular mass - ? representing marrow edema secondary to an arthritis versus possible neoplastic disease. There is also a small associated right C1- C2 joint effusion with synovial enhancement. Possible similar although less prominent altered marrow signal intensity is noted within the left C1 articular mass. Additional evaluation utilizing dedicated MRI and CT studies of the cervical spine is suggested. Mild bilateral frontal sinus mucosal thickening is noted. MRI C SPINE IMPRESSION: Altered marrow signal intensity with associated increase contrast enhancement is seen within the C1 articular pillars bilaterally, right more than left, probably on the basis of neoplastic disease given multilevel findings within the remainder of the cervical spine consistent with metastatic neoplastic disease. Small to moderate right lateral C1-C2 and trace left lateral C1-C2 facet joint effusions are noted. No epidural neoplastic disease is identified. Small right paramedian T3-T4 disc herniation. FU today : rising LFTs -due for MRI ABD LP x2: protein 90, WBC NL, await cytology official - Past Medical History Cardio/Vascular: Yes: HTN Gastrointestinal: Yes: GERD Psych: Yes: Anxiety - Past Surgical History Past Surgical History: Yes: Cholecystectomy, Hysterectomy - Alcohol/Substance Use Hx Alcohol Use: No History of Substance Use: reports: None - Smoking History Smoking history: Never smoked Have you smoked in the past 12 months: No - Social History Usual Living Arrangement: With Child ADL: Independent History of Recent Travel: Yes (just returned from [facility] 01/19) Home Medications - Allergies Allergies/Adverse Reactions: Allergies Allergy/AdvReac Type Severity Reaction Status Date / Time No Known Drug Allergies Allergy Verified 02/15/18 22:35 - Home Medications Home Medications: Ambulatory Orders Alprazolam [Xanax] 1 mg PO HS 05/30/17 Gabapentin 300 mg PO TID 05/30/17 Lisinopril/Hydrochlorothiazide [Lisinopril-Hctz 10-12.5 mg Tab] 1 each PO DAILY 05/30/17 Metoprolol Succinate [Toprol Xl] 25 mg PO DAILY 05/30/17 Tramadol HCl 50 mg PO PRN 05/30/17 Oxycodone HCl/Acetaminophen [Oxycodon-Acetaminophen 7.5-325] 1 each PO Q4H PRN 02/05/18 Famotidine [Pepcid] 20 mg PO BID #60 tablet 02/21/18 Lactobacillus Acidophilus [Bacid -] 1 tab PO DAILY #30 tab 02/21/18 Amitriptyline HCl [Elavil -] 25 mg PO HS #30 tablet 05/13/18 Family Disease History - Family Disease History Family Disease History: CA: Brother, Sister Physical Exam-Neuro Vital Signs: Vital Signs Vital Signs Temperature 98.1 F 07/27/18 10:00 Pulse Rate 97 H 07/27/18 10:00 Respiratory Rate 20 07/27/18 10:00 Blood Pressure 127/69 07/27/18 10:00 O2 Sat by Pulse Oximetry (%) 99 07/27/18 09:00 Constitutional: Yes: Well Nourished, No Distress Labs: Laboratory Last Values WBC 3.6 K/mm3 (4.0-10.0) L 07/25/18 06:30 RBC 3.61 M/mm3 (3.60-5.2) 07/25/18 06:30 Hgb 10.1 GM/dL (10.7-15.3) L 07/25/18 06:30 Hct 29.3 % (32.4-45.2) L 07/25/18 06:30 MCV 81.2 fl (80-96) 07/25/18 06:30 MCH 27.9 pg (25.7-33.7) 07/25/18 06:30 MCHC 34.3 g/dl (32.0-36.0) 07/25/18 06:30 RDW 13.2 % (11.6-15.6) 07/25/18 06:30 Plt Count 232 K/MM3 (134-434) 07/25/18 06:30 MPV 7.2 fl (7.5-11.1) L 07/25/18 06:30 Absolute Neuts (auto) 2.2 K/mm3 (1.5-8.0) 07/25/18 06:30 Neutrophils % 60.5 % (42.8-82.8) 07/25/18 06:30 Neutrophils % (Manual) 53.6 % (42.8-82.8) 07/25/18 06:30 Band Neutrophils % 7.1 % 07/25/18 06:30 Lymphocytes % 24.4 % (8-40) 07/25/18 06:30 Lymphocytes % (Manual) 22.2 % (8-40) 07/25/18 06:30 Monocytes % 11.6 % (3.8-10.2) H 07/25/18 06:30 Monocytes % (Manual) 11 % (3.8-10.2) H 07/25/18 06:30 Eosinophils % 2.5 % (0-4.5) 07/25/18 06:30 Eosinophils % (Manual) 2.0 % (0-4.5) 07/25/18 06:30 Basophils % 1.0 % (0-2.0) 07/25/18 06:30 Basophils % (Manual) 0.0 % (0-2.0) 07/25/18 06:30 Myelocytes % (Man) 3 % (0-2) H D 07/25/18 06:30 Promyelocytes % (Man) 0 % (0-2) 07/25/18 06:30 Blast Cells % (Manual) 0 % (0-0) 07/25/18 06:30 Nucleated RBC % 2 % (0-0) H 07/25/18 06:30 Metamyelocytes 1 % (0-2) D 07/25/18 06:30 Hypochromia 0 07/25/18 06:30 Toxic Granulation 0 07/25/18 06:30 Dohle Bodies 0 07/25/18 06:30 Platelet Estimate Normal 07/25/18 06:30 Polychromasia 0 07/25/18 06:30 Poikilocytosis 0 07/25/18 06:30 Basophilic Stippling 0 07/25/18 06:30 Anisocytosis 0 07/25/18 06:30 Microcytosis 0 07/25/18 06:30 Macrocytosis 0 07/25/18 06:30 Spherocytes 0 07/25/18 06:30 Sickle Cells 0 07/25/18 06:30 Target Cells 0 07/25/18 06:30 Tear Drop Cells 0 07/25/18 06:30 Ovalocytes 0 07/25/18 06:30 Stomatocytes 0 07/25/18 06:30 Helmet Cells 0 07/25/18 06:30 Noel-Ursa Bodies 0 07/25/18 06:30 [place] Rings 0 07/25/18 06:30 [place] Cells 0 07/25/18 06:30 Acanthocytes (Spur) 0 07/25/18 06:30 Rouleaux 0 07/25/18 06:30 Fragmented RBCs 0 07/25/18 06:30 Schistocytes 0 07/25/18 06:30 PT with INR 11.90 SEC (9.7-13.0) 07/24/18 07:00 INR 1.01 (0.83-1.09) 07/24/18 07:00 Sodium 131 mmol/L (136-145) L 07/27/18 10:40 Potassium 4.5 mmol/L (3.5-5.1) 07/27/18 10:40 Chloride 98 mmol/L (98-107) 07/27/18 10:40 Carbon Dioxide 25 mmol/L (21-32) 07/27/18 10:40 Anion Gap 9 MMOL/L (8-16) 07/27/18 10:40 BUN 19 mg/dL (7-18) H 07/27/18 10:40 Creatinine 1.1 mg/dL (0.55-1.3) 07/27/18 10:40 Creat Clearance w eGFR 49.69 (>60) 07/27/18 10:40 Random Glucose 104 mg/dL (74-106) 07/27/18 10:40 Calcium 9.3 mg/dL (8.5-10.1) 07/27/18 10:40 Magnesium 2.3 mg/dL (1.8-2.4) 07/24/18 07:00 Total Bilirubin 0.5 mg/dL (0.2-1) 07/27/18 10:40 Direct Bilirubin 0.2 mg/dL (0.0-0.2) 07/25/18 06:30 GGT 225 U/L (5-85) H 07/25/18 06:30 AST 107 U/L (15-37) H 07/27/18 10:40 ALT 122 U/L (13-61) H 07/27/18 10:40 Alkaline Phosphatase 991 U/L (45-117) H 07/27/18 10:40 Total Protein 8.1 g/dl (6.4-8.2) 07/27/18 10:40 Albumin 3.9 g/dl (3.4-5.0) 07/27/18 10:40 Urine Color Dk yellow 07/15/18 08:23 Urine Appearance Clear 07/15/18 08:23 Urine pH 6.0 (5.0-8.0) 07/15/18 08:23 Ur Specific [place] 1.022 (1.010-1.035) 07/15/18 08:23 Urine Protein 1+ (NEGATIVE) H 07/15/18 08:23 Urine Glucose (UA) Negative (NEGATIVE) 07/15/18 08:23 Urine Ketones Trace (NEGATIVE) H 07/15/18 08:23 Urine Blood Negative (NEGATIVE) 07/15/18 08:23 Urine Nitrite Negative (NEGATIVE) 07/15/18 08:23 Urine Bilirubin Negative (NEGATIVE) 07/15/18 08:23 Urine Urobilinogen 1.0 mg/dL (0.2-1.0) 07/15/18 08:23 Ur Leukocyte Esterase Negative (NEGATIVE) 07/15/18 08:23 Urine WBC (Auto) 7 /hpf (0-5) 07/15/18 08:23 Urine RBC (Auto) 6 /hpf (0-4) 07/15/18 08:23 Urine Casts (Auto) 70 /hpf (0-8) 07/15/18 08:23 U Pathogenic Cast Auto None seen (NEGATIVE) 07/15/18 08:23 U Epithel Cells (Auto) 5.7 /HPF (0-5) 07/15/18 08:23 U Sm Round Cell (Auto) None seen 07/15/18 08:23 Urine Bacteria (Auto) 3.9 /hpf (NEGATIVE) 07/15/18 08:23 CSF Appearance Clear 07/26/18 11:30 CSF Color Colorless 07/26/18 11:30 CSF WBC 3 07/26/18 11:30 CSF RBC 71 07/26/18 11:30 CSF Neutrophils No Result Required. 07/26/18 11:30 CSF Lymphocytes No Result Required. 07/26/18 11:30 CSF Eosinophils No Result Required. 07/26/18 11:30 CSF Basophils No Result Required. 07/26/18 11:30 CSF Macrophages No Result Required. 07/26/18 11:30 CSF Plasma Cells No Result Required. 07/26/18 11:30 CSF Diff Comment No Result Required. 07/26/18 11:30 CSF Comment No Result Required. 07/26/18 11:30 CSF Glucose mg/dL (40-70) 07/26/18 11:30 CSF Total Protein mg/dL (15-45) 07/26/18 11:30 Hepatitis A IgM Ab Negative (Negative) 07/25/18 06:30 Hep A IgM Ab Confirm Negative (Negative) 07/25/18 06:30 Hepatitis A Ab Total Positive (Negative) H 07/25/18 06:30 Hep Bs Antigen Negative (Negative) 07/25/18 06:30 Hep Bs Antibody Non reactive (.) 07/25/18 06:30 Hep B Core Total Ab Negative (Negative) 07/25/18 06:30 Hep B Core IgM Ab Negative (Negative) 07/25/18 06:30 Hep C Ab Diagnostic 0.1 s/co ratio (0.0-0.9) 07/25/18 06:30 Hepatitis C Antibody <0.1 s/co ratio (0.0-0.9) 07/25/18 06:30 - Neuro Exam Level Of Consciousness: Yes: Alert (awake, alert, pupils symmetric, no HORNERS, EOMI, no facial, dec sensation mentalis area BL, no focal weakness, reflxes Patellar 3+, achilles 1+, plantars down) Imaging - Results MRI: Report Reviewed, Image Reviewed Problem List - Problems (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 The patient denies fever, diarrhea, chest pain or abdominal pain. She completed radiation 5 weeks ago and was scheduled to start chemotherapy today at 0830AM w/ Dr. Galvan. This is the patient's second round of chemotherapy, with the last round at approx 1 year ago. The daughter notes that the patient has had the symptoms of nausea and vomiting at the end of previous radiations and during chemotherapy, however this episode is not in closely associated with either. Additionally the patient has had a decrease in appetite for 2 days and headache for 3 days (initially frontal now occipital). Patient has no other complaints at bedside. as per pt she has noted R sided neck pain x 3 weeks as well as numbness of "teeth and lower chin " x 3 weeks MRI BRAIN IMPRESSION: Nonspecific diffuse nonspecific smooth dural thickening is noted along the cerebral convexities bilaterally - ? secondary to etiologies such as recent spinal tap with resultant intracranial hypotension, inflammatory/ infectious disease or neoplastic disease. The partially imaged upper cervical spine demonstrates nonspecific altered marrow signal intensity within the right C1 articular mass - ? representing marrow edema secondary to an arthritis versus possible neoplastic disease. There is also a small associated right C1- C2 joint effusion with synovial enhancement. Possible similar although less prominent altered marrow signal intensity is noted within the left C1 articular mass. Additional evaluation utilizing dedicated MRI and CT studies of the cervical spine is suggested. Mild bilateral frontal sinus mucosal thickening is noted. 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
[2018-07-27] MEDS ORDERED: ALPRAZolam 0.25 MG TABLET PO PRN (17:49)
--- NOTE | 2018-07-27 17:57 | PN ---
Teaching Attending Note Name of Resident: Nas Cruz ATTENDING PHYSICIAN STATEMENT I saw and evaluated the patient. I reviewed the resident's note and discussed the case with the resident. I agree with the resident's findings and plan as documented. SUBJECTIVE: Patient seen and examined Seen with neurology - Dr. Lyons DISCUSSION ABOUT BEGINNING CHEMOTHERAPY, 3RD LP, OR INSERTION OF OMMAYA AND OBTAINING CSF AND IF POSITIVE HAVING INTRATHECAL ACCESS PATIENT TO DECIDE AFTER DISCUSSION WITH FAMIILY. IN INTERIM FOR EVALUATION OF LIVER WITH MRI. ALK PHOS IS PREDOMINANTLY OF BONE ORIGIN WITH SOME ELEVATION OF GGTP. OBJECTIVE: ASSESSMENT AND PLAN:
[2018-07-27] MEDS: oxyCODONE HCL 5 MG TABLET PO PRN (22:00)
[2018-07-27] MEDS: AMITRIPTYLINE HCL 25 MG TABLET (FP) PO SCH (22:00)
[2018-07-28] MEDS: oxyCODONE HCL 5 MG TABLET PO PRN ×2 (06:09→18:42)
[2018-07-28] MEDS: GABAPENTIN 300 MG CAPSULE (FP) PO SCH ×3 (06:09→21:15)
[2018-07-28 08:23] LABS: ALBUMIN 3.6 g/dl (3.4-5.0); ALK PHOS 951 U/L (45-117); ANION GAP 11 MMOL/L (8-16); BILIRUBIN,TOTAL 0.5 mg/dL (0.2-1); BLOOD UREA NITROGEN 21 mg/dL (7-18); CALCIUM 8.1 mg/dL (8.5-10.1); CHLORIDE 99 mmol/L (98-107); CO2 22 mmol/L (21-32); CREATININE 1.2 mg/dL (0.55-1.3); GLUCOSE,RANDOM 95 mg/dL (74-106); POTASSIUM 4.2 mmol/L (3.5-5.1); SGOT/AST 94 U/L (15-37); SGPT/ALT 93 U/L (13-61); SODIUM 133 mmol/L (136-145); TOT PROT 7.2 g/dl (6.4-8.2)
[2018-07-28] MEDS: LISINOPRIL 10 MG TABLET (FP) PO SCH (09:09)
[2018-07-28] MEDS: HYDROCHLOROTHIAZIDE 12.5 MG CAPSULE (FP) PO SCH (09:09)
[2018-07-28] MEDS: LACTOBACILLUS ACIDOPHILUS 1 TABLET PO SCH (09:09)
[2018-07-28] MEDS: metoPROLOL SUCCINATE 25 MG TAB.SR.24H (FP) PO SCH (09:09)
--- NOTE | 2018-07-28 10:36 | PN ---
Progress Note (short form) - Note Progress Note: headaches- better with pain meds and rt sided neck pain has persistent numbness to chin will be going for MRCP today Vital Signs - 24 hr 07/27/18 07/27/18 07/27/18 16:15 21:00 22:00 Temperature 99.1 F 98.9 F Pulse Rate 97 H 89 Respiratory 18 17 Rate Blood Pressure 129/79 134/80 O2 Sat by Pulse 99 Oximetry (%) 07/28/18 07/28/18 07/28/18 06:09 09:00 09:16 Temperature 98.1 F 98.3 F Pulse Rate 101 H 102 H Respiratory 20 20 Rate Blood Pressure 132/62 118/71 O2 Sat by Pulse 97 Oximetry (%) Current Medications Generic Name Dose Route Start Last Admin Trade Name Freq PRN Reason Stop Dose Admin Al Hydroxide/Mg Hydroxide 30 ml 07/22/18 14:16 07/25/18 20:29 Mylanta Oral Suspension - PO 30 ml Q6H PRN Administration DYSPEPSIA Amitriptyline HCl 25 mg 07/15/18 22:00 07/27/18 22:00 Elavil - PO 25 mg HS CARTER Administration Gabapentin 300 mg 07/21/18 14:00 07/28/18 06:09 Neurontin - PO 300 mg TID CARTER Administration Hydrochlorothiazide 12.5 mg 07/16/18 10:00 07/28/18 09:09 Hctz - PO 12.5 mg DAILY CARTER Administration Lactobacillus Acidophilus 1 tab 07/16/18 10:00 07/28/18 09:09 Bacid - PO 1 tab DAILY CARTER Administration Lisinopril 10 mg 07/16/18 10:00 07/28/18 09:09 Prinivil PO 10 mg DAILY CARTER Administration Lorazepam 1.5 mg 07/28/18 07:00 Ativan - PO 07/29/18 06:59 ONCE PRN ANXIETY Metoprolol Succinate 25 mg 07/16/18 10:00 07/28/18 09:09 Toprol Xl - PO 25 mg DAILY CARTER Administration Ondansetron HCl 4 mg 07/15/18 12:40 07/22/18 10:32 Zofran Injection IVPUSH 4 mg Q4H PRN Administration NAUSEA AND/OR VOMITING Oxycodone HCl 5 mg 07/26/18 14:53 07/28/18 06:09 Roxicodone - PO 5 mg Q4H PRN Administration PAIN LEVEL Laboratory Results - last 24 hr 07/25/18 07/27/18 07/28/18 06:30 10:40 06:30 Sodium 131 L 133 L Potassium 4.5 4.2 Chloride 98 99 Carbon Dioxide 25 22 Anion Gap 9 11 BUN 19 H 21 H Creatinine 1.1 1.2 Creat Clearance w eGFR 49.69 44.95 Random Glucose 104 95 Calcium 9.3 8.1 L Total Bilirubin 0.5 0.5 AST 107 H 94 H ALT 122 H 93 H Alkaline Phosphatase 991 H 951 H Total Protein 8.1 7.2 Albumin 3.9 3.6 Hep A IgM Ab Confirm Negative Hepatitis A Ab Total Positive H Hep Bs Antigen Negative Hep Bs Antibody Non reactive Hep B Core Total Ab Negative s1 S2 RRR Tender rt side of neck , at occipital region no LNE Lungs clear Abd- soft, NT no edema PLAN pain control check labs LFT improving Dr duque will be speaking with family about further management continue with meds pending cytology result Problem List - Problems (1) Hyponatremia Code(s): E87.1 - HYPO-OSMOLALITY AND HYPONATREMIA (2) Vomiting Code(s): R11.10 - VOMITING, UNSPECIFIED (3) Breast cancer, left breast Code(s): C50.912 - MALIGNANT NEOPLASM OF UNSPECIFIED SITE OF LEFT FEMALE BREAST Qualifiers: Breast location: lower inner quadrant of breast Patient sex: female
--- NOTE | 2018-07-28 11:39 | PN.GI ---
GI Progress Note Subjective: Pt seen/examined at bedside, ambulating in the room, reports intermittent headaches, none currently, no new complaints. Denies abdominal pain, n/v, fever/ chills. Pending MRI today. - Objective Vital Signs: Vital Signs Temperature 98.3 F 07/28/18 09:16 Pulse Rate 102 H 07/28/18 09:16 Respiratory Rate 20 07/28/18 09:16 Blood Pressure 118/71 07/28/18 09:16 O2 Sat by Pulse Oximetry (%) 97 07/28/18 09:00 Constitutional: Well Nourished, No Distress, Calm Cardiovascular: Yes: WNL, Regular Rate and Rhythm Respiratory: Yes: WNL, Regular, CTA Bilaterally Gastrointestinal Inspection: Yes: WNL ...Palpate: Yes: Other (Abd soft, nt, nd) Labs: CBC, BMP 07/25/18 06:30 07/28/18 06:30 INR, PTT INR 1.01 (0.83-1.09) 07/24/18 07:00 Problem List - Problems (1) Abnormal liver function tests Assessment/Plan: 68yo female with metastatic breast ca to bones presenting with nausea/vomiting and headaches with elevated LFTs. Suspected alk phos elevation predominantly of bone origin however need to exclude liver involvement and biliary obstructive process though low suspicion. Recent US revealing mild CBD dilation, post cholecystectomy. No GI symptoms currently. Transaminitis improving. Hep B/C negative. -Follow up MRI/MRCP being performed today -Continue to monitor LFT trend -Avoid nonessential hepatoxic medications -Further recommendations per oncology Code(s): R94.5 - ABNORMAL RESULTS OF LIVER FUNCTION STUDIES
--- NOTE | 2018-07-28 16:33 | PN ---
Progress Note (short form) - Note Progress Note: Patient seen and examined Lengthy discussion with daughter Justina about CSF abnormalities, elevated protein , strong suspicion for HAND STRAIGHTENER meningitis despite lack of cytology confirmation. Once again discussed options, -- repeat LP, initiate systemic chemotherapy, or place ommaya and attermpt to obtain diagnosis and initiate therapy . Patient and family seem OK with ommaya and will attempt to get patient transferred for ommaya and CSF fluid analysis and thereafter if possible treatment Last Vital Signs Temp Pulse Resp BP Pulse Ox 98.5 F 101 H 18 115/66 97 07/28/18 15:05 07/28/18 15:05 07/28/18 15:05 07/28/18 15:05 07/28/18 09:00 HEENT: GLADYS, EOM Intact Oropharynx: No thrush, No mucositis Breasts: Without masses Cor: RSR, No murmurs, No gallops Lungs: Clear to P&A Abd: Soft, Normal bowel sounds, No organomegaly Ext:No significant edema Skin: No rashes, Integument intact CBC, BMP 07/25/18 06:30 07/28/18 06:30 Current Medications Generic Name Dose Route Start Last Admin Trade Name Freq PRN Reason Stop Dose Admin Al Hydroxide/Mg Hydroxide 30 ml 07/22/18 14:16 07/25/18 20:29 Mylanta Oral Suspension - PO 30 ml Q6H PRN Administration DYSPEPSIA Amitriptyline HCl 25 mg 07/15/18 22:00 07/27/18 22:00 Elavil - PO 25 mg HS CARTER Administration Gabapentin 300 mg 07/21/18 14:00 07/28/18 14:22 Neurontin - PO 300 mg TID CARTER Administration Hydrochlorothiazide 12.5 mg 07/16/18 10:00 07/28/18 09:09 Hctz - PO 12.5 mg DAILY CARTER Administration Lactobacillus Acidophilus 1 tab 07/16/18 10:00 07/28/18 09:09 Bacid - PO 1 tab DAILY CRATER Administration Lisinopril 10 mg 07/16/18 10:00 07/28/18 09:09 Prinivil PO 10 mg DAILY CARTER Administration Lorazepam 1.5 mg 07/28/18 07:00 Ativan - PO 07/29/18 06:59 ONCE PRN ANXIETY Metoprolol Succinate 25 mg 07/16/18 10:00 07/28/18 09:09 Toprol Xl - PO 25 mg DAILY CARTER Administration Ondansetron HCl 4 mg 07/15/18 12:40 07/22/18 10:32 Zofran Injection IVPUSH 4 mg Q4H PRN Administration NAUSEA AND/OR VOMITING Oxycodone HCl 5 mg 07/26/18 14:53 07/28/18 06:09 Roxicodone - PO 5 mg Q4H PRN Administration PAIN LEVEL Impression: Metastatic breast ca Bone Mets 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
[2018-07-28] MEDS ORDERED: LORazepam 1 MG TABLET PO ONE (18:31)
[2018-07-28] MEDS: AMITRIPTYLINE HCL 25 MG TABLET (FP) PO SCH (21:15)
[2018-07-29] MEDS: oxyCODONE HCL 5 MG TABLET PO PRN ×2 (01:03→06:10)
[2018-07-29] MEDS: GABAPENTIN 300 MG CAPSULE (FP) PO SCH ×3 (06:09→21:20)
[2018-07-29] MEDS: metoPROLOL SUCCINATE 25 MG TAB.SR.24H (FP) PO SCH (09:41)
[2018-07-29] MEDS: LISINOPRIL 10 MG TABLET (FP) PO SCH (09:41)
[2018-07-29] MEDS: HYDROCHLOROTHIAZIDE 12.5 MG CAPSULE (FP) PO SCH (09:41)
[2018-07-29] MEDS: LACTOBACILLUS ACIDOPHILUS 1 TABLET PO SCH (09:41)
--- NOTE | 2018-07-29 11:49 | PN ---
Physical Exam: SUBJECTIVE: Patient seen and examined at bedside. Still having intermittent "flashing" headaches. Still ok with omaya reservoir for CSF analysis and possible intrathecal treatment. OBJECTIVE: Vital Signs Temperature 97.9 F 07/29/18 09:00 Pulse Rate 114 H 07/29/18 09:00 Respiratory Rate 18 07/29/18 09:00 Blood Pressure 136/70 07/29/18 09:00 O2 Sat by Pulse Oximetry (%) 97 07/28/18 19:45 GENERAL: The patient is awake, alert, and fully oriented, in mild distress from DEVRIES. ENT: Ears normal, nares patent. LUNGS: Breath sounds equal, clear to auscultation bilaterally HEART: Regular rate and rhythm, S1, S2 ABDOMEN: Soft, nontender, nondistended EXTREMITIES: no edema. NEUROLOGICAL: Normal speech, gait not observed. PSYCH: Anxious SKIN: Warm, dry Laboratory Results - last 24 hr 07/28/18 06:30 Vitamin B12 657 Active Medications Generic Name Dose Route Start Last Admin Trade Name Freq PRN Reason Stop Dose Admin Al Hydroxide/Mg Hydroxide 30 ml 07/22/18 14:16 07/25/18 20:29 Mylanta Oral Suspension - PO 30 ml Q6H PRN Administration DYSPEPSIA Amitriptyline HCl 25 mg 07/15/18 22:00 07/28/18 21:15 Elavil - PO 25 mg HS CARTER Administration Gabapentin 300 mg 07/21/18 14:00 07/29/18 06:09 Neurontin - PO 300 mg TID CARTER Administration Hydrochlorothiazide 12.5 mg 07/16/18 10:00 07/29/18 09:41 Hctz - PO 12.5 mg DAILY CARTER Administration Lactobacillus Acidophilus 1 tab 07/16/18 10:00 07/29/18 09:41 Bacid - PO 1 tab DAILY CARTER Administration Lisinopril 10 mg 07/16/18 10:00 07/29/18 09:41 Prinivil PO 10 mg DAILY CARTER Administration Metoprolol Succinate 25 mg 07/16/18 10:00 07/29/18 09:41 Toprol Xl - PO 25 mg DAILY CARTER Administration Ondansetron HCl 4 mg 07/15/18 12:40 07/22/18 10:32 Zofran Injection IVPUSH 4 mg Q4H PRN Administration NAUSEA AND/OR VOMITING Oxycodone HCl 5 mg 07/26/18 14:53 07/29/18 06:10 Roxicodone - PO 5 mg Q4H PRN Administration PAIN LEVEL ASSESSMENT/PLAN: 68 y/o F w/PMH of metastatic breast ca s/p several lines of therapy who is being worked up for DEVRIES and 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 -DEVRIES w/hx of metastatic breast ca -possible leptominigeal disease -MRI brain showed nonspecific dural enhancement -2 LPs were non-diagnostic with negative cytology -Pt agreeable for ommaya reservoir for further investigation of CSF and intrathecal treatment if positive -Pain control for headaches Visit type - Emergency Visit Emergency Visit: Yes ED Registration Date: 07/17/18 Care time: The patient presented to the Emergency Department on the above date and was hospitalized for further evaluation of their emergent condition. - New Patient This patient is new to me today: No - Critical Care Critical Care patient: No
--- NOTE | 2018-07-29 12:08 | PN ---
Progress Note (short form) - Note Progress Note: headaches- better with pain meds and rt sided neck pain has persistent numbness to chin s/p MRCP son at bedside Dr Galvan spoke with family yesterday Vital Signs - 24 hr 07/28/18 07/28/18 07/28/18 15:05 17:30 19:45 Temperature 98.5 F 98.4 F Pulse Rate 101 H 89 Respiratory 18 18 18 Rate Blood Pressure 115/66 110/64 O2 Sat by Pulse 97 Oximetry (%) 07/28/18 07/29/18 07/29/18 22:00 01:14 05:44 Temperature 98.6 F 98.3 F 98.8 F Pulse Rate 96 H 104 H 98 H Respiratory 20 20 20 Rate Blood Pressure 105/68 99/69 110/64 O2 Sat by Pulse Oximetry (%) 07/29/18 09:00 Temperature 97.9 F Pulse Rate 114 H Respiratory 18 Rate Blood Pressure 136/70 O2 Sat by Pulse Oximetry (%) Current Medications Generic Name Dose Route Start Last Admin Trade Name Freq PRN Reason Stop Dose Admin Al Hydroxide/Mg Hydroxide 30 ml 07/22/18 14:16 07/25/18 20:29 Mylanta Oral Suspension - PO 30 ml Q6H PRN Administration DYSPEPSIA Amitriptyline HCl 25 mg 07/15/18 22:00 07/28/18 21:15 Elavil - PO 25 mg HS CARTER Administration Gabapentin 300 mg 07/21/18 14:00 07/29/18 06:09 Neurontin - PO 300 mg TID CARTER Administration Hydrochlorothiazide 12.5 mg 07/16/18 10:00 07/29/18 09:41 Hctz - PO 12.5 mg DAILY CARTER Administration Lactobacillus Acidophilus 1 tab 07/16/18 10:00 07/29/18 09:41 Bacid - PO 1 tab DAILY [facility]TER Administration Lisinopril 10 mg 07/16/18 10:00 07/29/18 09:41 Prinivil PO 10 mg DAILY [facility] Administration Metoprolol Succinate 25 mg 07/16/18 10:00 07/29/18 09:41 Toprol Xl - PO 25 mg DAILY [facility]TER Administration Ondansetron HCl 4 mg 07/15/18 12:40 07/22/18 10:32 Zofran Injection IVPUSH 4 mg Q4H PRN Administration NAUSEA AND/OR VOMITING Oxycodone HCl 5 mg 07/26/18 14:53 07/29/18 06:10 Roxicodone - PO 5 mg Q4H PRN Administration PAIN LEVEL Pantoprazole Sodium 40 mg 07/29/18 12:45 Protonix - PO DAILY CARTER s1 S2 RRR Tender rt side of neck , at occipital region no LNE Lungs clear Abd- soft, NT no edema PLAN pain control check labs LFT improving pt will be for transfer or discharge for Ommaya placement -- as per Oncology continue with meds Problem List - Problems (1) Hyponatremia Code(s): E87.1 - HYPO-OSMOLALITY AND HYPONATREMIA (2) Vomiting Code(s): R11.10 - VOMITING, UNSPECIFIED (3) Breast cancer, left breast Code(s): C50.912 - MALIGNANT NEOPLASM OF UNSPECIFIED SITE OF LEFT FEMALE BREAST Qualifiers: Breast location: lower inner quadrant of breast Patient sex: female
[2018-07-29] MEDS ORDERED: PANTOPRAZOLE 40 MG TABLET (FP) PO SCH (12:45)
[2018-07-29] MEDS ORDERED: oxyCODONE HCL 5 MG TABLET PO PRN (17:14)
--- NOTE | 2018-07-29 17:49 | PN ---
Progress Note (short form) - Note Progress Note: Discussed MRI/MRCP findings with patient, patient's family who were present and patient's daughter Megan via telephone. ? of filling defect at the region of the ampulla. No liver mass noted. Likely not contributing to ALP being elevated to such extent. Plan is for transfer to [facility] for furrher treatment. I explained to patient and her family that she could be evaluated for having EUS performed to further evaluate CBD while she is there (if C-Spine mets permit) as a less invasive of assessing for stone / ca involvement, as opposed to ERCP. Discussed plan with Dr. Soriano as well. Discontinued PPI given prior C. Diff infection and increased risk of recurrence and PPI. Changed to Ranitidine 150mg daily Problem List - Problems (1) Abnormal liver function tests Code(s): R94.5 - ABNORMAL RESULTS OF LIVER FUNCTION STUDIES
[2018-07-29] MEDS: RANITIDINE HCL 150 MG/10 ML UNIT-DOSE PO SCH (18:44)
[2018-07-29] MEDS: MAG HYDROX/AL HYDROX/SIMETH 30 ML UNIT-DOSE CUP PO PRN (18:45)
--- NOTE | 2018-07-29 19:18 | PN ---
Progress Note (short form) - Note Progress Note: Patikalli seen and examined c/o neck pain Last Vital Signs Temp Pulse Resp BP Pulse Ox 99.6 F 97 H 18 122/65 97 07/29/18 18:41 07/29/18 18:41 07/29/18 18:41 07/29/18 18:41 07/29/18 09:00 Cor: RSR, No murmurs, No gallops Lungs: Clear to P&A Abd: Soft, Normal bowel sounds, No organomegaly Active Medications Generic Name Dose Route Start Last Admin Trade Name Freq PRN Reason Stop Dose Admin Al Hydroxide/Mg Hydroxide 30 ml 07/22/18 14:16 07/29/18 18:45 Mylanta Oral Suspension - PO 30 ml Q6H PRN Administration DYSPEPSIA Amitriptyline HCl 25 mg 07/15/18 22:00 07/28/18 21:15 Elavil - PO 25 mg HS CATRER Administration Gabapentin 300 mg 07/21/18 14:00 07/29/18 14:32 Neurontin - PO 300 mg TID CARTER Administration Hydrochlorothiazide 12.5 mg 07/16/18 10:00 07/29/18 09:41 Hctz - PO 12.5 mg DAILY CARTER Administration Lactobacillus Acidophilus 1 tab 07/16/18 10:00 07/29/18 09:41 Bacid - PO 1 tab DAILY CARTER Administration Lisinopril 10 mg 07/16/18 10:00 07/29/18 09:41 Prinivil PO 10 mg DAILY CARTER Administration Metoprolol Succinate 25 mg 07/16/18 10:00 07/29/18 09:41 Toprol Xl - PO 25 mg DAILY CARTER Administration Ondansetron HCl 4 mg 07/15/18 12:40 07/22/18 10:32 Zofran Injection IVPUSH 4 mg Q4H PRN Administration NAUSEA AND/OR VOMITING Oxycodone HCl 5 mg 07/29/18 17:14 07/29/18 17:22 Roxicodone - PO 5 mg Q6H PRN Administration PAIN LEVEL 6-10 Ranitidine HCl 150 mg 07/29/18 18:00 07/29/18 18:44 Zantac Oral Solution - PO 150 mg DAILY CARTER Administration A/P 68 y/o patient with metastatic breast cancer, s/p several lines of therapy, comes in with numbness over the chin, headaches, vomiting MRI brain with contrast shows nonspecific dural enhancement --? neoplastic.Also C1 articular mass ? neoplastic versus inflammatory MRI C spine -- C1 altered marrow signal cytology negative Also MRCP showing filling defects in ampulla For transfer to [facility] for ommaya placement/ ? ERCP
[2018-07-29] MEDS ORDERED: oxyCODONE HCL 5 MG TABLET PO ONE (19:30)
[2018-07-29] MEDS: AMITRIPTYLINE HCL 25 MG TABLET (FP) PO SCH (21:20)
[2018-07-29] MEDS: ALPRAZolam 0.25 MG TABLET PO PRN (21:20)
[2018-07-30] MEDS: oxyCODONE HCL 5 MG TABLET PO PRN ×4 (01:14→22:13)
[2018-07-30] MEDS: GABAPENTIN 300 MG CAPSULE (FP) PO SCH ×3 (06:13→22:13)
--- NOTE | 2018-07-30 09:38 | PN ---
Progress Note (short form) - Note Progress Note: Patient seen and examined Complains of headaches. Anorexia No nausea or vomiting Last Vital Signs Temp Pulse Resp BP Pulse Ox 98.1 F 97 H 18 118/62 95 07/30/18 06:00 07/30/18 06:00 07/30/18 06:00 07/30/18 06:00 07/29/18 21:00 HEENT: GLADYS, EOM Intact Oropharynx: No thrush, No mucositis Cor: RSR, No murmurs, No gallops Lungs: Clear to P&A Abd: Soft, Normal bowel sounds, No organomegaly Ext:No significant edema Skin: No rashes, Integument intact CBC, BMP 07/25/18 06:30 07/28/18 06:30 Current Medications Generic Name Dose Route Start Last Admin Trade Name Freq PRN Reason Stop Dose Admin Al Hydroxide/Mg Hydroxide 30 ml 07/22/18 14:16 07/29/18 18:45 Mylanta Oral Suspension - PO 30 ml Q6H PRN Administration DYSPEPSIA Alprazolam 0.25 mg 07/29/18 21:08 07/29/18 21:20 Xanax - PO 0.25 mg Q12H PRN Administration INSOMNIA Amitriptyline HCl 25 mg 07/15/18 22:00 07/29/18 21:20 Elavil - PO 25 mg HS CARTER Administration Gabapentin 300 mg 07/21/18 14:00 07/30/18 06:13 Neurontin - PO 300 mg TID CARTER Administration Hydrochlorothiazide 12.5 mg 07/16/18 10:00 07/29/18 09:41 Hctz - PO 12.5 mg DAILY CARTER Administration Lactobacillus Acidophilus 1 tab 07/16/18 10:00 07/29/18 09:41 Bacid - PO 1 tab DAILY CARTER Administration Lisinopril 10 mg 07/16/18 10:00 07/29/18 09:41 Prinivil PO 10 mg DAILY CARTER Administration Metoprolol Succinate 25 mg 07/16/18 10:00 07/29/18 09:41 Toprol Xl - PO 25 mg DAILY CARTER Administration Ondansetron HCl 4 mg 07/15/18 12:40 07/22/18 10:32 Zofran Injection IVPUSH 4 mg Q4H PRN Administration NAUSEA AND/OR VOMITING Oxycodone HCl 10 mg 07/29/18 19:19 07/30/18 01:14 Roxicodone - PO 10 mg Q6H PRN Administration PAIN LEVEL 6-10 Ranitidine HCl 150 mg 07/29/18 18:00 07/29/18 18:44 Zantac Oral Solution - PO 150 mg DAILY CARTER Administration 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
[2018-07-30] MEDS ORDERED: PT OWN MED DRAWER 7, Y5N ONE (09:55)
[2018-07-30] MEDS: HYDROCHLOROTHIAZIDE 12.5 MG CAPSULE (FP) PO SCH (10:12)
[2018-07-30] MEDS: metoPROLOL SUCCINATE 25 MG TAB.SR.24H (FP) PO SCH (10:12)
[2018-07-30] MEDS: LISINOPRIL 10 MG TABLET (FP) PO SCH (10:12)
[2018-07-30] MEDS: RANITIDINE HCL 150 MG/10 ML UNIT-DOSE PO SCH (10:12)
[2018-07-30] MEDS: LACTOBACILLUS ACIDOPHILUS 1 TABLET PO SCH (10:12)
[2018-07-30] MEDS: ALPRAZolam 0.25 MG TABLET PO PRN ×2 (10:12→22:13)
--- NOTE | 2018-07-30 10:37 | PN ---
Progress Note (short form) - Note Progress Note: pt seen/ examined today chart reviewed all f/u noted complains of headache/ neck pain-- better with meds daughter at bedside Vital Signs Temp 98.1 F 07/30/18 06:00 Pulse 97 H 07/30/18 06:00 Resp 18 07/30/18 06:00 BP 118/62 07/30/18 06:00 Pulse Ox 95 07/29/18 21:00 Intake & Output 07/29/18 07/29/18 07/30/18 11:59 23:59 11:59 Intake Total 200 100 360 Balance 200 100 360 Intake: IV 360 saline lock 360 Oral 200 100 0 Other: Voiding Method Toilet Toilet # Unmeasured Voids Void 1 1 Bowel Movement Yes No Active Medications Al Hydroxide/Mg Hydroxide (Mylanta Oral Suspension -) 30 ml PO Q6H PRN PRN Reason: DYSPEPSIA Last Admin: 07/29/18 18:45 Dose: 30 ml Alprazolam (Xanax -) 0.25 mg PO Q12H PRN PRN Reason: INSOMNIA Last Admin: 07/30/18 10:12 Dose: 0.25 mg Amitriptyline HCl (Elavil -) 25 mg PO HS [facility] Last Admin: 07/29/18 21:20 Dose: 25 mg Gabapentin (Neurontin -) 300 mg PO TID [facility] Last Admin: 07/30/18 06:13 Dose: 300 mg Hydrochlorothiazide (Hctz -) 12.5 mg PO DAILY [facility] Last Admin: 07/30/18 10:12 Dose: 12.5 mg Lactobacillus Acidophilus (Bacid -) 1 tab PO DAILY [facility] Last Admin: 07/30/18 10:12 Dose: 1 tab Lisinopril (Prinivil) 10 mg PO DAILY [facility] Last Admin: 07/30/18 10:12 Dose: 10 mg Metoprolol Succinate (Toprol Xl -) 25 mg PO DAILY [facility] Last Admin: 07/30/18 10:12 Dose: 25 mg Ondansetron HCl (Zofran Injection) 4 mg IVPUSH Q4H PRN PRN Reason: NAUSEA AND/OR VOMITING Last Admin: 07/22/18 10:32 Dose: 4 mg Oxycodone HCl (Roxicodone -) 10 mg PO Q6H PRN PRN Reason: PAIN LEVEL 6-10 Last Admin: 07/30/18 10:10 Dose: 10 mg Ranitidine HCl (Zantac Oral Solution -) 150 mg PO DAILY [facility] Last Admin: 07/30/18 10:12 Dose: 150 mg CBC, BMP 07/25/18 06:30 07/28/18 06:30 physical exam s1 S2 RRR Tender rt side of neck , at occipital region Lungs clear Abd- soft, NT no edema PLAN pain control continue present care For transfer to [facility] Will follow discussed with patient's daughter also Problem List - Problems (1) Cervicalgia Code(s): M54.2 - CERVICALGIA (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
[2018-07-30] MEDS: MAG HYDROX/AL HYDROX/SIMETH 30 ML UNIT-DOSE CUP PO PRN ×2 (17:22→22:13)
[2018-07-30] MEDS: AMITRIPTYLINE HCL 25 MG TABLET (FP) PO SCH (22:13)
[2018-07-31] MEDS: oxyCODONE HCL 5 MG TABLET PO PRN ×2 (04:05→10:36)
[2018-07-31] MEDS: GABAPENTIN 300 MG CAPSULE (FP) PO SCH ×3 (05:42→20:59)
[2018-07-31] MEDS: RANITIDINE HCL 150 MG/10 ML UNIT-DOSE PO SCH ×2 (05:46→09:59)
[2018-07-31 07:24] LABS: BASO % 1.2 % (0-2.0); EOS % 2.3 % (0-4.5); HEMATOCRIT 28.5 % (32.4-45.2); HEMOGLOBIN 9.7 GM/dL (10.7-15.3); LYMPH % 27.4 % (8-40); MCH 27.8 pg (25.7-33.7); MEAN CELL VOLUME 81.8 fl (80-96); MEAN PLT VOLUME 7.2 fl (7.5-11.1); MONO % 11.5 % (3.8-10.2); NEUT % 57.6 % (42.8-82.8); PLATELET COUNT 222 K/MM3 (134-434); RBC 3.49 M/mm3 (3.60-5.2); RDW 13.8 % (11.6-15.6); WHITE BLOOD COUNT 4.1 K/mm3 (4.0-10.0)
[2018-07-31 08:14] LABS: ALBUMIN 3.4 g/dl (3.4-5.0); ALK PHOS 941 U/L (45-117); ANION GAP 7 MMOL/L (8-16); BILIRUBIN,TOTAL 0.4 mg/dL (0.2-1); BLOOD UREA NITROGEN 26 mg/dL (7-18); CALCIUM 8.1 mg/dL (8.5-10.1); CHLORIDE 98 mmol/L (98-107); CO2 26 mmol/L (21-32); CREATININE 1.3 mg/dL (0.55-1.3); GLUCOSE,RANDOM 93 mg/dL (74-106); POTASSIUM 5.2 mmol/L (3.5-5.1); SGOT/AST 89 U/L (15-37); SGPT/ALT 73 U/L (13-61); SODIUM 132 mmol/L (136-145); TOT PROT 6.8 g/dl (6.4-8.2)
[2018-07-31] MEDS: metoPROLOL SUCCINATE 25 MG TAB.SR.24H (FP) PO SCH (10:35)
[2018-07-31] MEDS: LACTOBACILLUS ACIDOPHILUS 1 TABLET PO SCH (10:35)
[2018-07-31] MEDS: HYDROCHLOROTHIAZIDE 12.5 MG CAPSULE (FP) PO SCH (10:35)
[2018-07-31] MEDS: LISINOPRIL 10 MG TABLET (FP) PO SCH (10:35)
[2018-07-31 11:09] LABS: ANISOCYTOSIS 0; MACROCYTOSIS 0; PLATELET ESTIMATE NORMAL
--- NOTE | 2018-07-31 12:31 | PN ---
Progress Note (short form) - Note Progress Note: headaches- better with pain meds and rt sided neck pain has persistent numbness to chin s/p MRCP son at bedside Vital Signs - 24 hr 07/30/18 07/30/18 07/30/18 15:26 19:30 21:00 Temperature 99.2 F 98.7 F Pulse Rate 99 H 95 H Respiratory 20 18 18 Rate Blood Pressure 119/62 114/65 O2 Sat by Pulse 97 Oximetry (%) 07/30/18 07/31/18 23:00 06:00 Temperature 98.8 F 98.7 F Pulse Rate 97 H 92 H Respiratory 18 18 Rate Blood Pressure 114/65 112/61 O2 Sat by Pulse Oximetry (%) Current Medications Generic Name Dose Route Start Last Admin Trade Name Freq PRN Reason Stop Dose Admin Al Hydroxide/Mg Hydroxide 30 ml 07/22/18 14:16 07/30/18 22:13 Mylanta Oral Suspension - PO 30 ml Q6H PRN Administration DYSPEPSIA Alprazolam 0.25 mg 07/29/18 21:08 07/30/18 22:13 Xanax - PO 0.25 mg Q12H PRN Administration INSOMNIA Amitriptyline HCl 25 mg 07/15/18 22:00 07/30/18 22:13 Elavil - PO 25 mg HS CARTER Administration Gabapentin 300 mg 07/21/18 14:00 07/31/18 05:42 Neurontin - PO 300 mg TID CARTER Administration Hydrochlorothiazide 12.5 mg 07/16/18 10:00 07/31/18 10:35 Hctz - PO 12.5 mg DAILY CARTER Administration Lactobacillus Acidophilus 1 tab 07/16/18 10:00 07/31/18 10:35 Bacid - PO 1 tab DAILY CARTER Administration Lisinopril 10 mg 07/16/18 10:00 07/31/18 10:35 Prinivil PO 10 mg DAILY CARTER Administration Metoprolol Succinate 25 mg 07/16/18 10:00 07/31/18 10:35 Toprol Xl - PO 25 mg DAILY CARTER Administration Ondansetron HCl 4 mg 07/15/18 12:40 07/22/18 10:32 Zofran Injection IVPUSH 4 mg Q4H PRN Administration NAUSEA AND/OR VOMITING Oxycodone HCl 10 mg 07/29/18 19:19 07/31/18 10:36 Roxicodone - PO 10 mg Q6H PRN Administration PAIN LEVEL 6-10 Ranitidine HCl 150 mg 07/29/18 18:00 07/31/18 09:59 Zantac Oral Solution - PO Not Given DAILY [facility] Laboratory Results - last 24 hr 07/31/18 07/31/18 05:45 05:45 WBC 4.1 RBC 3.49 L Hgb 9.7 L Hct 28.5 L MCV 81.8 MCH 27.8 MCHC 34.0 RDW 13.8 Plt Count 222 MPV 7.2 L Absolute Neuts (auto) 2.4 Neutrophils % 57.6 Neutrophils % (Manual) 44.0 Band Neutrophils % 4.0 Lymphocytes % 27.4 Lymphocytes % (Manual) 28.0 D Monocytes % 11.5 H Monocytes % (Manual) 5 Eosinophils % 2.3 Eosinophils % (Manual) 4.0 D Basophils % 1.2 Basophils % (Manual) 4.0 H D Myelocytes % (Man) 2 D Promyelocytes % (Man) 0 Blast Cells % (Manual) 0 Nucleated RBC % 4 H Metamyelocytes 3 H D Hypochromia 0 Platelet Estimate Normal Polychromasia 0 Poikilocytosis 0 Anisocytosis 0 Microcytosis 0 Macrocytosis 0 Sodium 132 L Potassium 5.2 H Chloride 98 Carbon Dioxide 26 Anion Gap 7 L BUN 26 H Creatinine 1.3 Creat Clearance w eGFR 40.98 Random Glucose 93 Calcium 8.1 L Total Bilirubin 0.4 AST 89 H ALT 73 H Alkaline Phosphatase 941 H Total Protein 6.8 Albumin 3.4 s1 S2 RRR Tender rt side of neck , at occipital region no LNE Lungs clear Abd- soft, NT no edema PLAN pain control check labs LFT improving MRCP noted pt will be for transfer for Ommaya placement -- as per Oncology continue with meds Problem List - Problems (1) Hyponatremia Code(s): E87.1 - HYPO-OSMOLALITY AND HYPONATREMIA (2) Vomiting Code(s): R11.10 - VOMITING, UNSPECIFIED (3) Breast cancer, left breast Code(s): C50.912 - MALIGNANT NEOPLASM OF UNSPECIFIED SITE OF LEFT FEMALE BREAST Qualifiers: Breast location: lower inner quadrant of breast Patient sex: female
[2018-07-31] MEDS: MAG HYDROX/AL HYDROX/SIMETH 30 ML UNIT-DOSE CUP PO PRN (17:09)
--- NOTE | 2018-07-31 20:05 | PN ---
Progress Note (short form) - Note Progress Note: Patient seen in follow up. No new complaints. Intermittent unilateral headache as before. No significant events overnight. Inpatient Meds reviewed. Current Medications Al Hydroxide/Mg Hydroxide (Mylanta Oral Suspension -) 30 ml PO Q6H PRN PRN Reason: DYSPEPSIA Last Admin: 07/31/18 17:09 Dose: 30 ml Alprazolam (Xanax -) 0.25 mg PO Q12H PRN PRN Reason: INSOMNIA Last Admin: 07/30/18 22:13 Dose: 0.25 mg Amitriptyline HCl (Elavil -) 25 mg PO HS [facility] Last Admin: 07/30/18 22:13 Dose: 25 mg Gabapentin (Neurontin -) 300 mg PO TID [facility] Last Admin: 07/31/18 13:23 Dose: 300 mg Hydrochlorothiazide (Hctz -) 12.5 mg PO DAILY [facility] Last Admin: 07/31/18 10:35 Dose: 12.5 mg Lactobacillus Acidophilus (Bacid -) 1 tab PO DAILY [facility] Last Admin: 07/31/18 10:35 Dose: 1 tab Lisinopril (Prinivil) 10 mg PO DAILY [facility] Last Admin: 07/31/18 10:35 Dose: 10 mg Metoprolol Succinate (Toprol Xl -) 25 mg PO DAILY [facility] Last Admin: 07/31/18 10:35 Dose: 25 mg Ondansetron HCl (Zofran Injection) 4 mg IVPUSH Q4H PRN PRN Reason: NAUSEA AND/OR VOMITING Last Admin: 07/22/18 10:32 Dose: 4 mg Oxycodone HCl (Roxicodone -) 10 mg PO Q6H PRN PRN Reason: PAIN LEVEL 6-10 Last Admin: 07/31/18 10:36 Dose: 10 mg Ranitidine HCl (Zantac Oral Solution -) 150 mg PO DAILY [facility] Last Admin: 07/31/18 09:59 Dose: Not Given On Examination: Last Vital Signs Temp Pulse Resp BP Pulse Ox 98.4 F 88 18 113/61 98 07/31/18 14:49 07/31/18 14:49 07/31/18 14:49 07/31/18 14:49 07/31/18 09:00 General: In no acute distress, sitting up in bed, looks well. Extremities: No pallor or icterus. No pedal edema. No palpable lymphadenopathy. CVS: S1, S2, regular, no gallop or murmur. Chest: good air entry bilaterally, clear Abdomen: Non-distended, non-tender, no palpable organomegaly. Neuro: Alert, oriented, non-focal. Labs: CBC, BMP 07/31/18 05:45 07/31/18 05:45 Assessment. Metastatic breast cancer, s/p several lines of therapy, presenting with headache , nausea, neck pain. MRI brain with contrast shows nonspecific dural enhancement --?carcinomatosis. Also C1 articular mass - neoplastic versus inflammatory. Presenting symptoms improved. Awaiting transfer to [facility] for further management. Placement [facility].
[2018-07-31] MEDS: AMITRIPTYLINE HCL 25 MG TABLET (FP) PO SCH (20:59)
[2018-07-31] MEDS: ALPRAZolam 0.25 MG TABLET PO PRN (20:59)
[2018-08-01] MEDS: GABAPENTIN 300 MG CAPSULE (FP) PO SCH ×3 (06:04→21:54)
[2018-08-01] MEDS: LISINOPRIL 10 MG TABLET (FP) PO SCH (09:51)
[2018-08-01] MEDS: HYDROCHLOROTHIAZIDE 12.5 MG CAPSULE (FP) PO SCH (09:51)
[2018-08-01] MEDS: LACTOBACILLUS ACIDOPHILUS 1 TABLET PO SCH (09:51)
[2018-08-01] MEDS: RANITIDINE HCL 150 MG/10 ML UNIT-DOSE PO SCH (09:51)
[2018-08-01] MEDS: metoPROLOL SUCCINATE 25 MG TAB.SR.24H (FP) PO SCH (09:51)
[2018-08-01] MEDS: oxyCODONE HCL 5 MG TABLET PO PRN ×2 (09:52→18:38)
[2018-08-01] MEDS ORDERED: oxyCODONE HCL 5 MG TABLET PO PRN (10:30)
--- NOTE | 2018-08-01 10:30 | PN ---
Progress Note (short form) - Note Progress Note: headaches- better with pain meds and rt sided neck pain has persistent numbness to chin last night had whole body aches, pain in rt arm s/p MRCP son at bedside Vital Signs - 24 hr 07/31/18 07/31/18 07/31/18 18:40 21:00 22:00 Temperature 99.0 F 98.6 F Pulse Rate 94 H 91 H Respiratory 19 20 20 Rate Blood Pressure 121/71 131/61 O2 Sat by Pulse 96 Oximetry (%) 08/01/18 08/01/18 08/01/18 01:38 06:00 10:00 Temperature 98.6 F 98.3 F 98.1 F Pulse Rate 92 H 95 H 111 H Respiratory 18 18 20 Rate Blood Pressure 108/60 130/68 151/79 O2 Sat by Pulse Oximetry (%) 08/01/18 14:40 Temperature 98.3 F Pulse Rate 97 H Respiratory 18 Rate Blood Pressure 124/61 O2 Sat by Pulse Oximetry (%) Current Medications Generic Name Dose Route Start Last Admin Trade Name Freq PRN Reason Stop Dose Admin Al Hydroxide/Mg Hydroxide 30 ml 07/22/18 14:16 07/31/18 17:09 Mylanta Oral Suspension - PO 30 ml Q6H PRN Administration DYSPEPSIA Alprazolam 0.25 mg 07/29/18 21:08 08/01/18 11:05 Xanax - PO 0.25 mg Q12H PRN Administration INSOMNIA Amitriptyline HCl 25 mg 07/15/18 22:00 07/31/18 20:59 Elavil - PO 25 mg HS CARTER Administration Gabapentin 300 mg 07/21/18 14:00 08/01/18 14:17 Neurontin - PO 300 mg TID CARTER Administration Hydrochlorothiazide 12.5 mg 07/16/18 10:00 08/01/18 09:51 Hctz - PO 12.5 mg DAILY [facility]TER Administration Lactobacillus Acidophilus 1 tab 07/16/18 10:00 08/01/18 09:51 Bacid - PO 1 tab DAILY CARTER Administration Lisinopril 10 mg 07/16/18 10:00 08/01/18 09:51 Prinivil PO 10 mg DAILY [facility] Administration Metoprolol Succinate 25 mg 07/16/18 10:00 08/01/18 09:51 Toprol Xl - PO 25 mg DAILY [facility]TER Administration Multivitamins/Minerals 1 each 08/01/18 10:45 08/01/18 14:17 Theragran-M PO 1 each DAILY [facility]TER Administration Ondansetron HCl 4 mg 07/15/18 12:40 07/22/18 10:32 Zofran Injection IVPUSH 4 mg Q4H PRN Administration NAUSEA AND/OR VOMITING Oxycodone HCl 10 mg 07/29/18 19:19 08/01/18 09:52 Roxicodone - PO 10 mg Q6H PRN Administration PAIN LEVEL 6-10 Oxycodone HCl 5 mg 08/01/18 10:30 Roxicodone - PO Q6H PRN PAIN LEVEL 4 - 6 Ranitidine HCl 150 mg 07/29/18 18:00 08/01/18 09:51 Zantac Oral Solution - PO 150 mg DAILY [facility]TER Administration s1 S2 RRR Tender rt side of neck , at occipital region no LNE Lungs clear Abd- soft, NT no edema PLAN pain control increased OOB LFT improving MRCP noted pt will be for transfer for [facility] placement -- as per Oncology continue with meds Problem List - Problems (1) Hyponatremia Code(s): E87.1 - HYPO-OSMOLALITY AND HYPONATREMIA (2) Vomiting Code(s): R11.10 - VOMITING, UNSPECIFIED (3) Breast cancer, left breast Code(s): C50.912 - MALIGNANT NEOPLASM OF UNSPECIFIED SITE OF LEFT FEMALE BREAST Qualifiers: Breast location: lower inner quadrant of breast Patient sex: female
[2018-08-01] MEDS: ALPRAZolam 0.25 MG TABLET PO PRN ×2 (11:05→21:54)
--- NOTE | 2018-08-01 11:18 | PN ---
Progress Note (short form) - Note Progress Note: Patient seen in follow up. No new complaints. Intermittent unilateral headache as before. No significant events overnight. Inpatient Meds reviewed. Current Medications Al Hydroxide/Mg Hydroxide (Mylanta Oral Suspension -) 30 ml PO Q6H PRN PRN Reason: DYSPEPSIA Last Admin: 07/31/18 17:09 Dose: 30 ml Alprazolam (Xanax -) 0.25 mg PO Q12H PRN PRN Reason: INSOMNIA Last Admin: 08/01/18 11:05 Dose: 0.25 mg Amitriptyline HCl (Elavil -) 25 mg PO HS [facility] Last Admin: 07/31/18 20:59 Dose: 25 mg Gabapentin (Neurontin -) 300 mg PO TID [facility] Last Admin: 08/01/18 06:04 Dose: 300 mg Hydrochlorothiazide (Hctz -) 12.5 mg PO DAILY [facility] Last Admin: 08/01/18 09:51 Dose: 12.5 mg Lactobacillus Acidophilus (Bacid -) 1 tab PO DAILY [facility] Last Admin: 08/01/18 09:51 Dose: 1 tab Lisinopril (Prinivil) 10 mg PO DAILY [facility] Last Admin: 08/01/18 09:51 Dose: 10 mg Metoprolol Succinate (Toprol Xl -) 25 mg PO DAILY [facility] Last Admin: 08/01/18 09:51 Dose: 25 mg Multivitamins/Minerals (Theragran-M) 1 each PO DAILY [facility] Ondansetron HCl (Zofran Injection) 4 mg IVPUSH Q4H PRN PRN Reason: NAUSEA AND/OR VOMITING Last Admin: 07/22/18 10:32 Dose: 4 mg Oxycodone HCl (Roxicodone -) 10 mg PO Q6H PRN PRN Reason: PAIN LEVEL 6-10 Last Admin: 08/01/18 09:52 Dose: 10 mg Oxycodone HCl (Roxicodone -) 5 mg PO Q6H PRN PRN Reason: PAIN LEVEL 4 - 6 Ranitidine HCl (Zantac Oral Solution -) 150 mg PO DAILY [facility] Last Admin: 08/01/18 09:51 Dose: 150 mg On Examination: Last Vital Signs Temp Pulse Resp BP Pulse Ox 98.3 F 95 H 18 130/68 96 08/01/18 06:00 08/01/18 06:00 08/01/18 06:00 08/01/18 06:00 07/31/18 21:00 General: In no acute distress, sitting up in bed, looks well. Neuro: Alert, oriented, non-focal. Labs: CBC, BMP 07/31/18 05:45 07/31/18 05:45 Assessment. Metastatic breast cancer, s/p several lines of therapy, presenting with headache , nausea, neck pain. MRI brain with contrast shows nonspecific dural enhancement --?carcinomatosis. Also C1 articular mass - neoplastic versus inflammatory. Presenting symptoms improved. Awaiting transfer to [facility] - for further management. Placement [facility].
[2018-08-01] MEDS: MULTIVITAMINS THER W-MINERALS COMBO TABLET (FP) PO SCH (14:17)
[2018-08-01] MEDS: AMITRIPTYLINE HCL 25 MG TABLET (FP) PO SCH (21:54)
[2018-08-02] MEDS: GABAPENTIN 300 MG CAPSULE (FP) PO SCH ×2 (06:23→16:05)
[2018-08-02 07:30] LABS: BASO % 1.2 % (0-2.0); EOS % 2.5 % (0-4.5); HEMATOCRIT 29.3 % (32.4-45.2); HEMOGLOBIN 9.9 GM/dL (10.7-15.3); LYMPH % 24.1 % (8-40); MCH 27.7 pg (25.7-33.7); MEAN CELL VOLUME 81.5 fl (80-96); MEAN PLT VOLUME 6.9 fl (7.5-11.1); NEUT % 62.2 % (42.8-82.8); PLATELET COUNT 217 K/MM3 (134-434); RBC 3.59 M/mm3 (3.60-5.2); RDW 13.9 % (11.6-15.6); WHITE BLOOD COUNT 4.1 K/mm3 (4.0-10.0)
[2018-08-02 08:07] LABS: ALBUMIN 3.5 g/dl (3.4-5.0); ALK PHOS 957 U/L (45-117); ANION GAP 8 MMOL/L (8-16); BILIRUBIN,TOTAL 0.5 mg/dL (0.2-1); BLOOD UREA NITROGEN 21 mg/dL (7-18); CALCIUM 7.8 mg/dL (8.5-10.1); CHLORIDE 99 mmol/L (98-107); CO2 27 mmol/L (21-32); CREATININE 1.2 mg/dL (0.55-1.3); GLUCOSE,RANDOM 97 mg/dL (74-106); POTASSIUM 4.8 mmol/L (3.5-5.1); SGOT/AST 103 U/L (15-37); SGPT/ALT 77 U/L (13-61); SODIUM 134 mmol/L (136-145)
--- NOTE | 2018-08-02 09:50 | PN ---
Progress Note (short form) - Note Progress Note: pt seen/ examined chart reviewed awake/ comfortable head/ neck pain -- Bearable no distress Vital Signs Temp 98.2 F 08/02/18 06:00 Pulse 89 08/02/18 06:00 Resp 20 08/02/18 06:00 BP 123/59 L 08/02/18 06:00 Pulse Ox 98 08/01/18 21:00 Intake & Output 08/01/18 08/01/18 08/02/18 11:59 23:59 11:59 Intake Total 0 Balance 0 Weight 142 lb 12.8 oz Intake: IV 0 saline lock 0 Other: Voiding Method Toilet Toilet # Unmeasured Voids Void 1 1 Bowel Movement No No Weight Measurement Method Chair Scale Active Medications Al Hydroxide/Mg Hydroxide (Mylanta Oral Suspension -) 30 ml PO Q6H PRN PRN Reason: DYSPEPSIA Last Admin: 07/31/18 17:09 Dose: 30 ml Alprazolam (Xanax -) 0.25 mg PO Q12H PRN PRN Reason: INSOMNIA Last Admin: 08/01/18 21:54 Dose: 0.25 mg Amitriptyline HCl (Elavil -) 25 mg PO HS PENDING SALE TO [facility] Last Admin: 08/01/18 21:54 Dose: 25 mg Gabapentin (Neurontin -) 300 mg PO TID PENDING SALE TO [facility] Last Admin: 08/02/18 06:23 Dose: 300 mg Hydrochlorothiazide (Hctz -) 12.5 mg PO DAILY PENDING SALE TO [facility] Last Admin: 08/01/18 09:51 Dose: 12.5 mg Lactobacillus Acidophilus (Bacid -) 1 tab PO DAILY PENDING SALE TO [facility] Last Admin: 08/01/18 09:51 Dose: 1 tab Lisinopril (Prinivil) 10 mg PO DAILY PENDING SALE TO [facility] Last Admin: 08/01/18 09:51 Dose: 10 mg Metoprolol Succinate (Toprol Xl -) 25 mg PO DAILY PENDING SALE TO [facility] Last Admin: 08/01/18 09:51 Dose: 25 mg Multivitamins/Minerals (Theragran-M) 1 each PO DAILY PENDING SALE TO [facility] Last Admin: 08/01/18 14:17 Dose: 1 each Ondansetron HCl (Zofran Injection) 4 mg IVPUSH Q4H PRN PRN Reason: NAUSEA AND/OR VOMITING Last Admin: 07/22/18 10:32 Dose: 4 mg Oxycodone HCl (Roxicodone -) 10 mg PO Q6H PRN PRN Reason: PAIN LEVEL 6-10 Last Admin: 08/01/18 18:38 Dose: 10 mg Oxycodone HCl (Roxicodone -) 5 mg PO Q6H PRN PRN Reason: PAIN LEVEL 4 - 6 Last Admin: 08/01/18 21:54 Dose: 5 mg Ranitidine HCl (Zantac Oral Solution -) 150 mg PO DAILY [facility] Last Admin: 08/01/18 09:51 Dose: 150 mg CBC, BMP 08/02/18 06:45 08/02/18 06:45 Physical Exam S1 S2 RRR Tender rt side of neck , at occipital region Lungs clear Abd- soft, NT no edema alert/ awake PLAN pain control OOB continue present care pt up for transfer for Ommaya placement to [facility] -- as per Oncology-- continue with meds will follow Problem List - Problems (1) Cervicalgia Code(s): M54.2 - CERVICALGIA (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
[2018-08-02] MEDS: MAG HYDROX/AL HYDROX/SIMETH 30 ML UNIT-DOSE CUP PO PRN (10:04)
[2018-08-02] MEDS: MULTIVITAMINS THER W-MINERALS COMBO TABLET (FP) PO SCH (10:04)
[2018-08-02] MEDS: LISINOPRIL 10 MG TABLET (FP) PO SCH (10:04)
[2018-08-02] MEDS: LACTOBACILLUS ACIDOPHILUS 1 TABLET PO SCH (10:04)
[2018-08-02] MEDS: metoPROLOL SUCCINATE 25 MG TAB.SR.24H (FP) PO SCH (10:04)
[2018-08-02] MEDS ORDERED: PT OWN MED DRAWER 7, Y5N ONE (10:06)
[2018-08-02] MEDS: RANITIDINE HCL 150 MG/10 ML UNIT-DOSE PO SCH (10:07)
[2018-08-02] MEDS: HYDROCHLOROTHIAZIDE 12.5 MG CAPSULE (FP) PO SCH (10:08)
[2018-08-02] MEDS: oxyCODONE HCL 5 MG TABLET PO PRN ×2 (10:17→19:55)
[2018-08-02 10:49] LABS: ANISOCYTOSIS 0; HELMET CELLS 0; HOWELL-JOLLY BODIES 0; MACROCYTOSIS 0; OVALOCYTE 0; PLATELET ESTIMATE NORMAL; ROULEAU 0; SICKELED CELLS 0; TARGET CELLS 0; TEAR DROP CELLS 0; TOXIC GRANULATION 0
[2018-08-02] MEDS: ALPRAZolam 0.25 MG TABLET PO PRN (13:46)
--- NOTE | 2018-08-02 17:43 | PN ---
Progress Note (short form) - Note Progress Note: Lynette seen and examined c/o neck pain afvss Cor: RSR, No murmurs, No gallops Lungs: Clear to P&A Abd: Soft, Normal bowel sounds, No organomegaly labs/meds reviewed A/P 68 y/o patient with metastatic breast cancer, s/p several lines of therapy, comes in with numbness over the chin, headaches, vomiting MRI brain with contrast shows nonspecific dural enhancement --? neoplastic.Also C1 articular mass ? neoplastic versus inflammatory MRI C spine -- C1 altered marrow signal cytology negative Also MRCP showing filling defects in ampulla For transfer to [facility] for ommaya placement/ ? ERCP discussed with patient/family
[2018-08-02 21:18] VITALS: BP 139/78; PULSE 96; TEMP 99.6
== END 2018-08-02 21:25 | disposition short-term general hospital (02) | DRG 98 ==
LOC: JER 06:41 → JERBED 12:23 → J5S 07-16 00:32 → OBSVTOIN 07-17 10:31 → J8W 07-17 15:56 → J5S 07-17 16:00 → J8W 07-17 16:00 → J7W 07-28 09:21
PROVIDERS: ADMIT Internal Medicine; ATTEND Internal Medicine
PROC: 009U3ZX Drainage of Spinal Canal, Percutaneous Approach, Diagnostic (ICD-10-PCS; principal; 2018-07-20)
DX: G03.8 Meningitis due to other specified causes (principal); C80.0 Disseminated malignant neoplasm, unspecified; E87.1 Hypo-osmolality and hyponatremia; C79.49 Secondary malignant neoplasm of other parts of nervous system; C79.51 Secondary malignant neoplasm of bone; C50.912 Malignant neoplasm of unspecified site of left female breast; R11.0 Nausea; R74.8 Abnormal levels of other serum enzymes; D72.819 Decreased white blood cell count, unspecified
CPT/HCPCS: 36415; 62272; 70450-TC; 70553-TC; 71045-TC-FY; 72142-TC; 74181-TC; 76000-TC-FY; 76098-TC-FY; 76705-TC; 77002-TC-FY; 80048; 80053; 80074; 80076; 81003; 82607; 82945; 82977; 83735; 84157; 85025; 85027; 85610; 86704; 86706; 86708; 86803; 87070; 87205; 87340; 87899; 88108; 93005; 93010; 93970-TC; 99285-25; G0378; J1644; J7030

== ENCOUNTER 2018-08-10 07:00 | Day surgery (SDC) | payer OTHER ==
[2018-08-10] MEDS ORDERED: SODIUM CHLORIDE 250 ML IV ONE ×2 (08:00→10:20)
[2018-08-10] MEDS ORDERED: DIPHENHYDRAMINE IVPB ONE (08:30)
[2018-08-10] MEDS ORDERED: DEXAMETHASONE SODIUM PHOSPHATE IVPB ONE (08:30)
[2018-08-10] MEDS ORDERED: [UNRECOGNIZED DRUG - OTHER] IVPB ONE (08:30)
[2018-08-10] MEDS ORDERED: PACLITAXEL 138 MG in SODIUM CHLORIDE 250 ML IVPB ONE (09:00)
[2018-08-10] MEDS ORDERED: LORazepam 2 MG/ML SDV VIAL IVPB ONE (09:30)
[2018-08-10 09:45] LABS: BASO % 0.8 % (0-2.0); EOS % 2.3 % (0-4.5); HEMATOCRIT 28.6 % (32.4-45.2); HEMOGLOBIN 9.8 GM/dL (10.7-15.3); LYMPH % 20.1 % (8-40); MCH 28.1 pg (25.7-33.7); MCHC 34.1 g/dl (32.0-36.0); MEAN CELL VOLUME 82.4 fl (80-96); MEAN PLT VOLUME 7.1 fl (7.5-11.1); MONO % 4.9 % (3.8-10.2); NEUT % 71.9 % (42.8-82.8); PLATELET COUNT 179 K/MM3 (134-434); RBC 3.47 M/mm3 (3.60-5.2); RDW 14.1 % (11.6-15.6); WHITE BLOOD COUNT 4.8 K/mm3 (4.0-10.0)
[2018-08-10] MEDS ORDERED: SODIUM CHLORIDE IVPB ONE ×2 (10:00→13:40)
[2018-08-10] MEDS ORDERED: ZOLEDRONIC ACID IVPB ONE ×2 (10:00→13:40)
[2018-08-10 10:20] LABS: ALBUMIN 3.7 g/dl (3.4-5.0); ALK PHOS 906 U/L (45-117); ANION GAP 12 MMOL/L (8-16); BILIRUBIN,DIRECT 0.1 mg/dL (0.0-0.2); BILIRUBIN,TOTAL 0.4 mg/dL (0.2-1); BLOOD UREA NITROGEN 18 mg/dL (7-18); CALCIUM 9.2 mg/dL (8.5-10.1); CHLORIDE 100 mmol/L (98-107); CO2 22 mmol/L (21-32); CREATININE 1.4 mg/dL (0.55-1.3); GLUCOSE,RANDOM 159 mg/dL (74-106); MAGNESIUM 2.2 mg/dL (1.8-2.4); POTASSIUM 3.6 mmol/L (3.5-5.1); SGOT/AST 100 U/L (15-37); SGPT/ALT 70 U/L (13-61); SODIUM 134 mmol/L (136-145); TOT PROT 7.8 g/dl (6.4-8.2)
[2018-08-10 12:36] LABS: ANISOCYTOSIS 1+; MACROCYTOSIS 0; PLATELET ESTIMATE NORMAL
[2018-08-10 15:49] VITALS: TEMP 97.9
[2018-08-10] MEDS ORDERED: PORTA CATH FLUSH 10 ML IVPUSH ONE (15:49)
[2018-08-10 15:50] VITALS: BP 128/71; PULSE 96
[2018-08-11 08:06] LABS: CARCINOEMBRYONIC ANTIGEN 2.8 ng/mL (0.0-4.7)
== END 2018-08-10 14:40 | disposition home or self-care (01) ==
LOC: JONCCHEMO 07:00 → J7W 09:24 → JONCCHEMO 14:40
PROVIDERS: ATTEND Internal Medicine Hematology & Oncology
DX: Z51.11 Encounter for antineoplastic chemotherapy (principal); C50.911 Malignant neoplasm of unspecified site of right female breast; C79.51 Secondary malignant neoplasm of bone
CPT/HCPCS: 96366; 96367; 96413; J9999; 36415; 80048; 80076; 82378; 83735; 85025; 86300; 96375; 96417; J2405; J3489

== ENCOUNTER 2018-08-17 07:25 | Day surgery (SDC) | payer OTHER ==
[2018-08-17] MEDS ORDERED: SODIUM CHLORIDE 250 ML IV ONE ×2 (08:00→10:00)
[2018-08-17] MEDS ORDERED: DIPHENHYDRAMINE IVPB ONE (08:30)
[2018-08-17] MEDS ORDERED: DEXAMETHASONE SODIUM PHOSPHATE IVPB ONE (08:30)
[2018-08-17] MEDS ORDERED: [UNRECOGNIZED DRUG - OTHER] IVPB ONE (08:30)
[2018-08-17] MEDS ORDERED: PACLITAXEL 138 MG in SODIUM CHLORIDE 250 ML IVPB ONE (09:00)
[2018-08-17 09:15] LABS: EOS % 1.5 % (0-4.5); HEMATOCRIT 29.2 % (32.4-45.2); MCHC 34.1 g/dl (32.0-36.0); MEAN CELL VOLUME 82.1 fl (80-96); MEAN PLT VOLUME 7.5 fl (7.5-11.1); NEUT % 67.5 % (42.8-82.8); PLATELET COUNT 154 K/MM3 (134-434); RBC 3.55 M/mm3 (3.60-5.2); RDW 14.2 % (11.6-15.6); WHITE BLOOD COUNT 4.6 K/mm3 (4.0-10.0)
[2018-08-17 10:35] LABS: ANISOCYTOSIS 0; MACROCYTOSIS 0; PLATELET ESTIMATE DECREASED
[2018-08-17 11:09] LABS: ALBUMIN 3.7 g/dl (3.4-5.0); ALK PHOS 886 U/L (45-117); ANION GAP 12 MMOL/L (8-16); BILIRUBIN,DIRECT 0.1 mg/dL (0.0-0.2); BILIRUBIN,TOTAL 0.5 mg/dL (0.2-1); BLOOD UREA NITROGEN 24 mg/dL (7-18); CALCIUM 8.8 mg/dL (8.5-10.1); CHLORIDE 100 mmol/L (98-107); CO2 21 mmol/L (21-32); CREATININE 1.1 mg/dL (0.55-1.3); GLUCOSE,RANDOM 152 mg/dL (74-106); POTASSIUM 4.7 mmol/L (3.5-5.1); SGOT/AST 94 U/L (15-37); SGPT/ALT 79 U/L (13-61); SODIUM 133 mmol/L (136-145); TOT PROT 7.5 g/dl (6.4-8.2)
[2018-08-17 15:05] VITALS: BP 139/81; PULSE 105; TEMP 98.5
[2018-08-17] MEDS ORDERED: PORTA CATH FLUSH 10 ML IVPUSH ONE (15:06)
== END 2018-08-17 13:30 | disposition home or self-care (01) ==
LOC: JONCCHEMO 07:25 → J7W 08:42 → JONCCHEMO 13:30
PROVIDERS: ATTEND Internal Medicine Hematology & Oncology
DX: Z51.11 Encounter for antineoplastic chemotherapy (principal); C50.911 Malignant neoplasm of unspecified site of right female breast; C79.51 Secondary malignant neoplasm of bone
CPT/HCPCS: 36415; 80048; 80076; 85025; 96361; 96375; 96413; J2405

== ENCOUNTER 2018-08-24 07:15 | Day surgery (SDC) | payer OTHER ==
[2018-08-24 08:54] LABS: BASO % 0.3 % (0-2.0); EOS % 0.2 % (0-4.5); HEMATOCRIT 28.7 % (32.4-45.2); HEMOGLOBIN 9.5 GM/dL (10.7-15.3); LYMPH % 39.5 % (8-40); MCH 27.4 pg (25.7-33.7); MCHC 33.1 g/dl (32.0-36.0); MEAN CELL VOLUME 82.9 fl (80-96); MEAN PLT VOLUME 7.8 fl (7.5-11.1); MONO % 7.3 % (3.8-10.2); NEUT % 52.7 % (42.8-82.8); PLATELET COUNT 171 K/MM3 (134-434); RBC 3.46 M/mm3 (3.60-5.2); RDW 14.4 % (11.6-15.6); WHITE BLOOD COUNT 3.8 K/mm3 (4.0-10.0)
[2018-08-24] MEDS ORDERED: SODIUM CHLORIDE 250 ML IV ONE ×2 (09:00→11:00)
[2018-08-24] MEDS ORDERED: DEXAMETHASONE SODIUM PHOSPHATE IVPB ONE (09:30)
[2018-08-24] MEDS ORDERED: [UNRECOGNIZED DRUG - OTHER] IVPB ONE (09:30)
[2018-08-24] MEDS ORDERED: DIPHENHYDRAMINE IVPB ONE (09:30)
[2018-08-24 09:57] LABS: ALK PHOS 716 U/L (45-117); ANION GAP 8 MMOL/L (8-16); BILIRUBIN,DIRECT 0.2 mg/dL (0.0-0.2); BILIRUBIN,TOTAL 0.6 mg/dL (0.2-1); BLOOD UREA NITROGEN 24 mg/dL (7-18); CALCIUM 8.6 mg/dL (8.5-10.1); CHLORIDE 101 mmol/L (98-107); CO2 25 mmol/L (21-32); CREATININE 1.2 mg/dL (0.55-1.3); GLUCOSE,RANDOM 164 mg/dL (74-106); MAGNESIUM 2.2 mg/dL (1.8-2.4); POTASSIUM 5.1 mmol/L (3.5-5.1); SGOT/AST 47 U/L (15-37); SGPT/ALT 73 U/L (13-61); SODIUM 134 mmol/L (136-145); TOT PROT 7.4 g/dl (6.4-8.2)
[2018-08-24] MEDS ORDERED: PACLITAXEL 138 MG in SODIUM CHLORIDE 250 ML IVPB ONE (10:00)
[2018-08-24] MEDS ORDERED: LORazepam 2 MG/ML SDV VIAL IVPB ONE (11:00)
[2018-08-24 11:52] LABS: ANISOCYTOSIS 1+; CORRECTED WBC 3.09 K/mm3; MACROCYTOSIS 0; PLATELET ESTIMATE NORMAL
[2018-08-24 17:07] VITALS: TEMP 98.1
[2018-08-24] MEDS ORDERED: PORTA CATH FLUSH 10 ML IVPUSH ONE (17:07)
[2018-08-24 17:09] VITALS: BP 126/65; PULSE 79
== END 2018-08-24 13:20 | disposition home or self-care (01) ==
LOC: JONCCHEMO 07:15 → J7W 09:42 → JONCCHEMO 13:20
PROVIDERS: ATTEND Internal Medicine Hematology & Oncology
DX: Z51.11 Encounter for antineoplastic chemotherapy (principal); C50.911 Malignant neoplasm of unspecified site of right female breast; C79.51 Secondary malignant neoplasm of bone
CPT/HCPCS: 36415; 80048; 80076; 83735; 85025; 96367; 96375; 96413; 96417; J2405

== ENCOUNTER 2018-08-31 07:14 | Day surgery (SDC) | payer OTHER ==
[2018-08-31 09:26] LABS: BASO % 0.4 % (0-2.0); EOS % 0.1 % (0-4.5); HEMATOCRIT 25.9 % (32.4-45.2); HEMOGLOBIN 8.4 GM/dL (10.7-15.3); LYMPH % 40.9 % (8-40); MCH 27.2 pg (25.7-33.7); MCHC 32.4 g/dl (32.0-36.0); MEAN CELL VOLUME 83.8 fl (80-96); MEAN PLT VOLUME 7.2 fl (7.5-11.1); MONO % 9.9 % (3.8-10.2); NEUT % 48.7 % (42.8-82.8); PLATELET COUNT 219 K/MM3 (134-434); RBC 3.09 M/mm3 (3.60-5.2); RDW 15.6 % (11.6-15.6)
[2018-08-31] MEDS ORDERED: SODIUM CHLORIDE 250 ML IV ONE ×2 (09:30→11:30)
[2018-08-31 09:55] LABS: ALBUMIN 3.6 g/dl (3.4-5.0); BILIRUBIN,TOTAL 0.6 mg/dL (0.2-1); CALCIUM 8.2 mg/dL (8.5-10.1); CREATININE 1.1 mg/dL (0.55-1.3); MAGNESIUM 2.6 mg/dL (1.8-2.4); POTASSIUM 4.6 mmol/L (3.5-5.1); TOT PROT 6.6 g/dl (6.4-8.2)
[2018-08-31] MEDS ORDERED: [UNRECOGNIZED DRUG - OTHER] IVPB ONE (10:00)
[2018-08-31] MEDS ORDERED: ONDANSETRON IVPB ONE (10:00)
[2018-08-31] MEDS ORDERED: DEXAMETHASONE SODIUM PHOSPHATE IVPB ONE (10:00)
[2018-08-31] MEDS ORDERED: PACLITAXEL 138 MG in SODIUM CHLORIDE 250 ML IVPB ONE (10:30)
[2018-08-31 12:56] LABS: CORRECTED WBC 5.51 K/mm3
[2018-08-31 13:04] LABS: PLATELET ESTIMATE ADEQUATE
[2018-08-31 17:36] VITALS: BP 123/58; TEMP 97.8
[2018-08-31 17:44] VITALS: PULSE 72
[2018-08-31] MEDS ORDERED: PORTA CATH FLUSH 10 ML IVPUSH ONE (17:44)
== END 2018-08-31 14:25 | disposition home or self-care (01) ==
LOC: JONCCHEMO 07:14 → J7W 11:12 → JONCCHEMO 14:25
PROVIDERS: ATTEND Internal Medicine Hematology & Oncology
DX: Z51.11 Encounter for antineoplastic chemotherapy (principal); C50.911 Malignant neoplasm of unspecified site of right female breast; C79.51 Secondary malignant neoplasm of bone
CPT/HCPCS: 36415; 80053; 83735; 85025; 96367; 96375; 96413; J2405

== ENCOUNTER 2018-09-07 07:19 | Day surgery (SDC) | payer OTHER ==
[2018-09-07 08:28] LABS: BASO % 0.4 % (0-2.0); EOS % 0.2 % (0-4.5); HEMOGLOBIN 7.7 GM/dL (10.7-15.3); LYMPH % 23.8 % (8-40); MCHC 33.4 g/dl (32.0-36.0); MEAN PLT VOLUME 7.2 fl (7.5-11.1); MONO % 8.9 % (3.8-10.2); NEUT % 66.7 % (42.8-82.8); PLATELET COUNT 180 K/MM3 (134-434); RBC 2.74 M/mm3 (3.60-5.2); RDW 16.3 % (11.6-15.6)
[2018-09-07 08:29] LABS: CORRECTED WBC 4.26 K/mm3; WHITE BLOOD COUNT 6.3 K/mm3 (4.0-10.0)
[2018-09-07 09:04] LABS: ALBUMIN 3.5 g/dl (3.4-5.0); BILIRUBIN,DIRECT 0.2 mg/dL (0.0-0.2); BILIRUBIN,TOTAL 0.7 mg/dL (0.2-1); CALCIUM 7.2 mg/dL (8.5-10.1); CREATININE 0.9 mg/dL (0.55-1.3); MAGNESIUM 2.3 mg/dL (1.8-2.4); POTASSIUM 4.2 mmol/L (3.5-5.1); TOT PROT 6.3 g/dl (6.4-8.2)
[2018-09-07] MEDS ORDERED: SODIUM CHLORIDE IVPB ONE (09:30)
[2018-09-07] MEDS ORDERED: SODIUM CHLORIDE 250 ML IV ONE ×2 (09:30→11:30)
[2018-09-07] MEDS ORDERED: ZOLEDRONIC ACID IVPB ONE (09:30)
[2018-09-07] MEDS ORDERED: ONDANSETRON IVPB ONE (10:00)
[2018-09-07] MEDS ORDERED: DEXAMETHASONE SODIUM PHOSPHATE IVPB ONE (10:00)
[2018-09-07] MEDS ORDERED: [UNRECOGNIZED DRUG - OTHER] IVPB ONE (10:00)
[2018-09-07] MEDS ORDERED: PACLITAXEL 138 MG in SODIUM CHLORIDE 250 ML IVPB ONE (10:30)
[2018-09-07 11:27] LABS: ANISOCYTOSIS 0; MACROCYTOSIS 0; OVALOCYTE 1+; PLATELET ESTIMATE NORMAL
[2018-09-07 16:49] VITALS: TEMP 98.1
[2018-09-07] MEDS ORDERED: PORTA CATH FLUSH 10 ML IVPUSH ONE (16:49)
[2018-09-07 16:50] VITALS: BP 116/62; PULSE 80
== END 2018-09-07 13:20 | disposition home or self-care (01) ==
LOC: JONCCHEMO 07:19 → J7W 09:30 → JONCCHEMO 13:20
PROVIDERS: ATTEND Internal Medicine Hematology & Oncology
PROC: 3E04305 Introduction of Other Antineoplastic into Central Vein, Percutaneous Approach (ICD-10-PCS; principal; 2018-09-07)
PROC: 3E043GC Introduction of Other Therapeutic Substance into Central Vein, Percutaneous Approach (ICD-10-PCS; 2018-09-07)
PROC: 3E0437Z Introduction of Electrolytic and Water Balance Substance into Central Vein, Percutaneous Approach (ICD-10-PCS; 2018-09-07)
DX: Z51.11 Encounter for antineoplastic chemotherapy (principal); C50.412 Malignant neoplasm of upper-outer quadrant of left female breast; C79.51 Secondary malignant neoplasm of bone; Z17.0 Estrogen receptor positive status [ER+]; I10 Essential (primary) hypertension
CPT/HCPCS: 36415; 80048; 80076; 83735; 85025; 96367; 96375; 96413; 96417; J2405; J3489

== ENCOUNTER 2018-09-08 07:30 | Day surgery (SDC) | payer OTHER | END 2018-09-09 12:59 | disposition home or self-care (01) | LOC: JONCBLOOD 07:30 → J7W 11:07 ==

== ENCOUNTER 2018-09-14 07:29 | Day surgery (SDC) | payer OTHER ==
[2018-09-14 08:19] LABS: BASO % 0.6 % (0-2.0); EOS % 0.2 % (0-4.5); HEMATOCRIT 29.5 % (32.4-45.2); HEMOGLOBIN 9.8 GM/dL (10.7-15.3); LYMPH % 31.8 % (8-40); MCH 28.7 pg (25.7-33.7); MCHC 33.4 g/dl (32.0-36.0); MEAN CELL VOLUME 86.1 fl (80-96); MEAN PLT VOLUME 7.1 fl (7.5-11.1); MONO % 11.1 % (3.8-10.2); NEUT % 56.3 % (42.8-82.8); PLATELET COUNT 160 K/MM3 (134-434); RBC 3.42 M/mm3 (3.60-5.2); WHITE BLOOD COUNT 3.2 K/mm3 (4.0-10.0)
[2018-09-14 08:51] LABS: ALBUMIN 3.4 g/dl (3.4-5.0); BILIRUBIN,DIRECT 0.2 mg/dL (0.0-0.2); CALCIUM 7.7 mg/dL (8.5-10.1); CREATININE 0.7 mg/dL (0.55-1.3); MAGNESIUM 2.8 mg/dL (1.8-2.4); POTASSIUM 5.5 mmol/L (3.5-5.1); TOT PROT 6.3 g/dl (6.4-8.2)
[2018-09-14] MEDS ORDERED: SODIUM CHLORIDE 250 ML IV ONE ×2 (09:30→11:30)
[2018-09-14] MEDS ORDERED: DEXAMETHASONE SODIUM PHOSPHATE 10 MG, ONDANSETRON INJECTION 8 MG, DIPHENHYDRAMINE 50 MG... IVPB ONE (10:00)
[2018-09-14] MEDS ORDERED: SODIUM POLYSTYRENE SULFONATE 15 GM/60 ML BOTTLE PO ONE (10:30)
[2018-09-14] MEDS ORDERED: CALCIUM GLUCONATE 10% - 1,000 MG/10 ML VIAL IVPB ONE (10:30)
[2018-09-14] MEDS ORDERED: PACLITAXEL 138 MG in SODIUM CHLORIDE 250 ML IVPB ONE (10:30)
[2018-09-14 11:53] LABS: ANISOCYTOSIS 2+; MACROCYTOSIS 0; PLATELET ESTIMATE DECREASED; TEAR DROP CELLS 2+
[2018-09-14] MEDS ORDERED: HYDROmorphone HCL 2 MG TABLET PO ONE (12:34)
[2018-09-14 17:26] VITALS: TEMP 98.3
[2018-09-14] MEDS ORDERED: PORTA CATH FLUSH 10 ML IVPUSH ONE (17:26)
[2018-09-14 17:27] VITALS: BP 133/64; PULSE 74
== END 2018-09-14 14:00 | disposition home or self-care (01) ==
LOC: JONCCHEMO 07:29 → J7W 09:12 → JONCCHEMO 14:00
PROVIDERS: ATTEND Internal Medicine Hematology & Oncology
DX: Z51.11 Encounter for antineoplastic chemotherapy (principal); C50.919 Malignant neoplasm of unspecified site of unspecified female breast; C79.51 Secondary malignant neoplasm of bone
CPT/HCPCS: 36415; 80048; 80076; 83735; 85025; 96361; 96367; 96375; 96413; 96417; J2405

== ENCOUNTER 2018-09-21 07:16 | Day surgery (SDC) | payer OTHER ==
[2018-09-21 08:42] LABS: BASO % 0.8 % (0-2.0); EOS % 0.2 % (0-4.5); HEMATOCRIT 28.2 % (32.4-45.2); HEMOGLOBIN 9.3 GM/dL (10.7-15.3); LYMPH % 28.1 % (8-40); MCH 28.6 pg (25.7-33.7); MCHC 33.1 g/dl (32.0-36.0); MEAN CELL VOLUME 86.5 fl (80-96); MEAN PLT VOLUME 7.2 fl (7.5-11.1); MONO % 11.1 % (3.8-10.2); NEUT % 59.8 % (42.8-82.8); PLATELET COUNT 212 K/MM3 (134-434); RBC 3.26 M/mm3 (3.60-5.2); RDW 17.7 % (11.6-15.6); WHITE BLOOD COUNT 2.8 K/mm3 (4.0-10.0)
[2018-09-21 09:10] LABS: ALBUMIN 3.5 g/dl (3.4-5.0); BILIRUBIN,DIRECT 0.2 mg/dL (0.0-0.2); BILIRUBIN,TOTAL 0.9 mg/dL (0.2-1); CALCIUM 7.8 mg/dL (8.5-10.1); CREATININE 0.9 mg/dL (0.55-1.3); MAGNESIUM 2.3 mg/dL (1.8-2.4); POTASSIUM 4.9 mmol/L (3.5-5.1); TOT PROT 6.4 g/dl (6.4-8.2)
[2018-09-21] MEDS ORDERED: SODIUM CHLORIDE 250 ML IV ONE ×2 (09:30→11:30)
[2018-09-21] MEDS ORDERED: CALCIUM GLUCONATE 10% - 1,000 MG/10 ML VIAL IVPB ONE (09:54)
[2018-09-21] MEDS ORDERED: ONDANSETRON IVPB ONE (10:00)
[2018-09-21] MEDS ORDERED: DEXAMETHASONE SODIUM PHOSPHATE IVPB ONE (10:00)
[2018-09-21] MEDS ORDERED: [UNRECOGNIZED DRUG - OTHER] IVPB ONE (10:00)
[2018-09-21] MEDS ORDERED: PACLITAXEL 138 MG in SODIUM CHLORIDE 250 ML IVPB ONE (10:30)
[2018-09-21 11:46] LABS: ANISOCYTOSIS 1+; CORRECTED WBC 2.52 K/mm3; MACROCYTOSIS 0; PLATELET ESTIMATE NORMAL
[2018-09-21 12:37] VITALS: TEMP 98
[2018-09-21 14:22] VITALS: BP 129/76; PULSE 85
[2018-09-21] MEDS ORDERED: PORTA CATH FLUSH 10 ML IVPUSH ONE (14:22)
== END 2018-09-21 12:50 | disposition home or self-care (01) ==
LOC: JONCCHEMO 07:16 → J7W 09:23 → JONCCHEMO 12:50
PROVIDERS: ATTEND Internal Medicine Hematology & Oncology
DX: Z51.11 Encounter for antineoplastic chemotherapy (principal); C50.919 Malignant neoplasm of unspecified site of unspecified female breast; C79.51 Secondary malignant neoplasm of bone
CPT/HCPCS: 36415; 80048; 80076; 83735; 85025; 96367; 96375; 96413; 96417; J2405

== ENCOUNTER 2018-09-28 07:09 | Day surgery (SDC) | payer OTHER | END 2018-09-28 11:35 | disposition home or self-care (01) | LOC: JONCCHEMO 07:09 → J7W 08:58 → JONCCHEMO 11:35 ==

== ENCOUNTER 2018-10-01 23:12 | Inpatient (IN) | payer OTHER ==
[2018-10-01 23:17] VITALS: BMI 25.3
[2018-10-01] MEDS ORDERED: SODIUM CHLORIDE 1,946 ML IV ONE (23:38)
[2018-10-01] MEDS ORDERED: ONDANSETRON 4 MG/2 ML VIAL IVPUSH ONE (23:55)
--- NOTE | 2018-10-01 23:56 | PDOC ---
History of Present Illness - General Chief Complaint: SIRS, Suspected/Possible Stated Complaint: VOMITING/FEVER Time Seen by Provider: 10/01/18 23:32 History Source: Patient Exam Limitations: No Limitations - History of Present Illness Initial Comments: 10/01/18 23:51 68YOF with h/o metastatic breast cancer (multiple mets to bone, just finished radiation, chemo every Thursday with last treatment this week) who p/w fever, generalized bodily pain, and transient AMS tonight. The daughter explains that the patient randomly became clammy and sweaty about 2 hours ago. They gave her Tylenol PO and got her in the car to come to the ED. They explain that she forgot everything that happened from the time they left the home to the time they arrived in their ED patient room. The patient notes continued chronic left knee pain which has been previously diagnosed as a metastatic bone lesion. They additionally note she has bloody bowel movements which "fill the toilet" every time she has a BM. She has additionally been nauseated tonight. The patient states that she has given thought to goals of care and confirms she would not want CPR, intubation, new central line placement, or any other invasive procedures but she would like antibiotics if warranted. Past History - Past Medical History Allergies/Adverse Reactions: Allergies Allergy/AdvReac Type Severity Reaction Status Date / Time No Known Drug Allergies Allergy Verified 10/01/18 23:17 Home Medications: Ambulatory Orders Alprazolam [Xanax] 1 mg PO HS 05/30/17 Gabapentin 300 mg PO TID 05/30/17 Lisinopril/Hydrochlorothiazide [Lisinopril-Hctz 10-12.5 mg Tab] 1 each PO DAILY 05/30/17 Metoprolol Succinate [Toprol Xl] 25 mg PO DAILY 05/30/17 Tramadol HCl 50 mg PO PRN 05/30/17 Oxycodone HCl/Acetaminophen [Oxycodon-Acetaminophen 7.5-325] 1 each PO Q4H PRN 02/05/18 Famotidine [Pepcid] 20 mg PO BID #60 tablet 02/21/18 Lactobacillus Acidophilus [Bacid -] 1 tab PO DAILY #30 tab 02/21/18 Amitriptyline HCl [Elavil -] 25 mg PO HS #30 tablet 05/13/18 Anemia: No Asthma: No Cancer: Yes (breast cancer left, bone mets) Cardiac Disorders: No CVA: No COPD: No CHF: No Dementia: No Diabetes: No GI Disorders: No Disorders: No HTN: Yes Hypercholesterolemia: No Liver Disease: No Seizures: No Thyroid Disease: No - Surgical History Abdominal Surgery: Yes Appendectomy: No Cardiac Surgery: No Cholecystectomy: Yes Lung Surgery: No Neurologic Surgery: No Orthopedic Surgery: No - Immunization History Immunization Up to Date: Yes - Suicide/Smoking/Psychosocial Hx Smoking History: Never smoked Have you smoked in the past 12 months: No Hx Alcohol Use: No Drug/Substance Use Hx: No Substance Use Type: None Hx Substance Use Treatment: No Review of Systems - Review of Systems Able to Perform ROS?: Yes Comments:: 10/01/18 23:56 GEN: fever, chills, malaise, generalized weakness, or weight change HEENT: no ear pain, sore throat, vision change, or eye pain CV: no chest pain, palpitations, lightheadedness, syncope, or edema RESP: no cough, wheezing, or SOB GI: rectal bleeding, nausea, vomiting, no abdominal pain, diarrhea, constipation , or white/black stool : no dysuria, hematuria, incontinence, retention, bleeding, or discharge MSK: left knee pain, no neck/back pain, muscle weakness/pain, or joint swelling/ pain NEURO: no headache, seizure, vertigo, numbness, tingling, or focal weakness PSYCH: no substance use, no behavior change SKIN: no jaundice, no rash ROS otherwise negative except as noted in HPI *Physical Exam - Vital Signs Last Vital Signs Temp Pulse Resp BP Pulse Ox 98.8 F 122 H 20 94/58 L 97 10/01/18 23:14 10/01/18 23:14 10/01/18 23:14 10/01/18 23:14 10/01/18 23:14 - Physical Exam Comments: 10/01/18 23:57 GENERAL: chronically ill-appearing, A/Ox4, no distress, answers questions appropriately, very pleasant Hebrew-speaking female who appears older than stated age, accompanied by young family members at bedside who are supportive HEENT: PERRLA, EOMI, a bit dry mucous membranes NECK/BACK: no midline ttp, no spinal stepoff or deformity, no hematoma, full ROM , neck supple CHEST WALL: Port in place right upper chest wall CARDIOVASCULAR: regular rate/rhythm, normal S1S2, no MGR, strong peripheral pulses, capillary refill <2 seconds, extremities wwp, 1+ pedal edema LUNGS/RESPIRATORY: no respiratory distress, CTAB GI/ABDOMEN: symmetric [id number], normoactive BS, soft, no ttp, no midline pulsatile masses : no CVA tenderness EXTREMITIES: left knee effusion and painful ROM and mild ttp diffusely along joint line, no muscle atrophy, no acute deformity SKIN: warm and dry, pale, no jaundice, no rash, no bruising, no skin breakdown, no cuts, no lesions NEUROLOGICAL: GCS 15, CN II-XII grossly intact, 5/5 strength proximally and distally, no facial droop Heart Score/ECG Review #1 10/01/18 23:52 Sinus tachycardia, rate 108, normal axis and intervals, no ischemic ST-T changes ED Treatment Course - LABORATORY CBC & Chemistry Diagram: 10/02/18 00:01 10/02/18 00:01 Medical Decision Making - Medical Decision Making 68YOF with h/o metastatic breast CA and prior neuropenic fever p/w fever. Initial Vital Signs Temp Pulse Resp BP Pulse Ox 98.8 F 122 H 20 94/58 L 97 10/01/18 23:14 10/01/18 23:14 10/01/18 23:14 10/01/18 23:14 10/01/18 23:14 Exam: As noted in Physical Exam section. DDX IBNLT: febrile neutropenia, sepsis, c/f PNA, UTI, cellulitis, meningitis, encephalitis, PE W/U ordered: Labs as noted below, CXR, EKG TX ordered: Vanc/Zosyn febrile neutropenia dosing, Zofran 10/02/18 00:05 We spoke with the [facility] ED attending. The patient had MRI brain this week, showing numerous bony and dural mets. Nothing intraparenchymal noted on their report. However there were calvarial and C-spine lesions. EKG: Reviewed; results as noted in ECG Review section. CXR: Nothing acute Laboratory Tests 10/02/18 10/02/18 10/02/18 00:01 00:01 00:01 WBC 1.7 L* RBC 2.62 L Hgb 7.9 L Hct 22.1 L MCV 84.6 MCH 30.0 MCHC 35.5 RDW 18.3 H Plt Count 121 L D MPV 7.2 L Absolute Neuts (auto) 1.4 L Neutrophils % 81.2 Lymphocytes % 11.2 D Monocytes % 7.4 Eosinophils % 0.0 D Basophils % 0.2 Nucleated RBC % 2 H PT with INR 14.50 H INR 1.23 H PTT (Actin FS) 32.6 VBG pH 7.44 H POC VBG pCO2 32.0 L POC VBG pO2 47.6 H VBG HCO3 21.2 L VBG O2 Sat (Bertha) 82.5 H VBG Base Excess -2.1 L Sodium Potassium Chloride Carbon Dioxide Anion Gap BUN Creatinine Est GFR (CKD-EPI)AfAm Est GFR (CKD-EPI)NonAf Random Glucose Lactic Acid Calcium Magnesium Total Bilirubin AST ALT Alkaline Phosphatase Creatine Kinase Troponin I Total Protein Albumin Lipase TSH 10/02/18 10/02/18 00:01 00:01 WBC RBC Hgb Hct MCV MCH MCHC RDW Plt Count MPV Absolute Neuts (auto) Neutrophils % Lymphocytes % Monocytes % Eosinophils % Basophils % Nucleated RBC % PT with INR INR PTT (Actin FS) VBG pH POC VBG pCO2 POC VBG pO2 VBG HCO3 VBG O2 Sat (Bertha) VBG Base Excess Sodium 122 L Potassium 4.5 Chloride 89 L Carbon Dioxide 24 Anion Gap 9 BUN 18.0 Creatinine 1.1 Est GFR (CKD-EPI)AfAm 60.59 Est GFR (CKD-EPI)NonAf 52.28 Random Glucose 184 H Lactic Acid 1.5 Calcium 6.3 L* Magnesium 1.9 Total Bilirubin 2.8 H AST 33 ALT 52 Alkaline Phosphatase 396 H Creatine Kinase 113 Troponin I < 0.02 Total Protein 5.8 L Albumin 3.1 L Lipase 80 TSH 0.59 Reassessment: Patient states no longer nauseated, otherwise unchanged. Repeat exam unchanged. 10/02/18 00:58 The Pt is unsafe for discharge at this time. They require further hospital observation, workup, and treatment. Microblog sent to [facility] for admission. Blank Decision to Admit order is placed per ED protocol. 10/02/18 01:16 Repeat vitals at this time: HR 97, SpO2 97% on RA, BP 96/50, MAP 65, RR 20. 10/02/18 01:[address] Nguyen, requests Decision to Admit order go to Dr. Amos. 10/02/18 01:57 Completed DNR/DNI paperwork with the patient and family and order placed in the EMR. *DC/Admit/Observation/Transfer Diagnosis at time of Disposition: Metastatic breast cancer, Neutropenic fever, Hyponatremia, Systemic inflammatory response syndrome (SIRS), Hyperbilirubinemia - Discharge Dispostion Condition at time of disposition: Guarded Decision to Admit order: Yes - Referrals Referrals: Brayden Griffith MD [Primary Care Provider] - - Patient Instructions - Post Discharge Activity
[2018-10-02] MEDS ORDERED: PIPERACILLIN/TAZOB 4.5 GM 4.5 GM in DEXTROSE 5%-WATER 100 ML IVPB ONE (00:06)
[2018-10-02] MEDS ORDERED: ONDANSETRON 4 MG/2 ML VIAL ONE ×2 (00:28→00:32)
[2018-10-02] MEDS ORDERED: PIPERACILLIN/TAZOB 4.5 GM 4.5 GM/100 ML BAG IVPB ONE ×2 (00:29→11:01)
[2018-10-02 00:30] LABS: BASO % 0.2 % (0-2.0); HEMATOCRIT 22.1 % (32.4-45.2); HEMOGLOBIN 7.9 GM/dL (10.7-15.3); LYMPH % 11.2 % (8-40); MCHC 35.5 g/dl (32.0-36.0); MEAN CELL VOLUME 84.6 fl (80-96); MEAN PLT VOLUME 7.2 fl (7.5-11.1); MONO % 7.4 % (3.8-10.2); NEUT % 81.2 % (42.8-82.8); PLATELET COUNT 121 K/MM3 (134-434); RBC 2.62 M/mm3 (3.60-5.2); RDW 18.3 % (11.6-15.6)
[2018-10-02 00:33] LABS: VENOUS PH 7.44 (7.31-7.41); VENOUS PO2 47.6 mmHg (30-40)
--- NOTE | 2018-10-02 00:38 | PDOC ---
Documentation entered by Hansa Muñoz SCRIBE, acting as scribe for Disha Garcia DO. Disha Garcia, DO: This documentation has been prepared by the Toni chapman Mackenzie, SCRIBE, under my direction and personally reviewed by me in its entirety. I confirm that the documentation accurately reflects all work , treatment, procedures, and medical decision making performed by me. Attending Attestation - Resident Resident Name: Rika Nair - ED Attending Attestation I have performed the following: I have examined & evaluated the patient, The case was reviewed & discussed with the resident, I agree w/resident's findings & plan - HPI HPI: The patient is a 68 year old female, with a significant PMH of metastatic breast cancer (chemo treatment every week w/ last treatment Thursday) who presents to the emergency department with fever, malaise, diaphoresis and altered mental status. Patients daughter reports 2 hours [employer] the patient suddenly looked pale, started sweating, vomiting and had a fever of 103 degrees F (which she was given tylenol for [employer]GER). As per daughter patient experienced a transient episode of altered mental status while initially arriving in the ED. Patients daughter states the patient also has symptoms of nausea and 4 recent episodes of bloody diarrhea. Patients daughter states the patient is also recently presenting with bilateral lower extremity swelling and has been complaining of acute pain in her left knee hindering her ability to walk even with the assistance of a walker. Patients daughter notes bloody nasal discharge as well. The patient denies chest pain, shortness of breath, headache and dizziness. Denies constipation. Denies dysuria, frequency, urgency and hematuria. Allergies: NKA Social history: None reported 10/02/18 01:01 - Physicial Exam PE: Constitutional: Pallor, hot to touch awake, alert, oriented. No acute distress. Head: Normocephalic. Atraumatic Eyes: PERRL. EOMI. Conjunctivae are not pale. ENT: Mucous membranes are moist and intact. Posterior pharynx without exudates or erythema. Uvula midline. Neck: Supple. Full ROM. No lymphadenopathy. Cardiovascular: (+)Tachycardic. Regular rhythm. Distal pulses are 2+ and symmetric. Pulmonary/Chest: No evidence of respiratory distress. Clear to auscultation bilaterally No wheezing, rales or rhonchi. Abdominal: Soft and non-distended. There is no tenderness. No rebound, guarding or rigidity. No organomegaly. No palpable masses. Good bowel sounds. Back: No CVA tenderness. Musculoskeletal: (+) Left knee tenderness to palpation. (+)Bilateral lower extremity trace edema. No cyanosis. No clubbing. Full range of motion in all extremities. Nocalf tenderness. Radial/pedal pulses are intact and 2+ bilaterally Skin:Skin is dry. No petechiae. No purpura. Neurological: Alert and oriented to person, place, and time. Cranial nerves II -XII are grossly intact. Normal speech. Strength is grossly symmetric. No sensory deficits. Psychiatric: Good eye contact. Normal interaction, affect and behavior. 10/02/18 01:02 - Critical Care Time Total Critical Care Time: 35 Critical Care Statement: The care of this patient involved high complexity decision making to prevent further life threatening deterioration of the patient 's condition and/or to evaluate & treat vital organ system(s) failure or risk of failure. - Medical Decision Making 10/02/18 00:31 I, Dr. Disha Garcia, DO, attest that this document has been prepared under my direction and personally reviewed by me in its entirety. I further attest, that it accurately reflects all work, treatment, procedures and medical decision -making performed by me. 10/02/18 00:34 a/p: 68yo female with metastatic breast ca who finished 12 days of radiation to her cervical and lumbar spine and chemo on thursday -pt with a fever tonight of 103 at home -pt having brbpr -pt pale, weak -pt with L knee pain - hx of mets to L femur -pt seen by pain management yesterday and changed from Morphine to Methadone -pt febrile, hypotensive, tachy -sepsis order set ordered, vanc, zosyn ordered -will send labs, cultures of peripheral and port -will send ua/ucx -will need admission -dr. duque is onc, dr. ricci is pmd 10/02/18 00:40 cxr clear, port in place 10/02/18 00:59 pt is neutropenic with a fever today 10/02/18 01:05 family updated attempted to access port - unable to get blood return blood cultures sent from peripheral line microblog sent to [employer] [facility] for [facility] overnight 10/02/18 01:[address] Nguyen who accepts pt to service Heart Score/ECG Review - ECG Intrepretation Comment:: 10/02/18 00:31 sinus tach at 108, nl axis, abnl r wave progression-lacking r wave progression, t wave inversions lateral leads, abnl ekg
[2018-10-02 00:40] LABS: INR 1.23 (0.83-1.09); PROTHROMBIN TIME (PATIENT) 14.5 SEC (9.7-13.0)
[2018-10-02 00:42] LABS: WHITE BLOOD COUNT 1.7 K/mm3 (4.0-10.0)
[2018-10-02 00:43] LABS: ACTIVATED PTT 32.6 SECONDS (25.2-36.5)
[2018-10-02 01:21] LABS: ALBUMIN 3.1 g/dl (3.4-5.0); ALK PHOS 396 U/L (45-117); ANION GAP 9 MMOL/L (8-16); BILIRUBIN,TOTAL 2.8 mg/dL (0.2-1); CHLORIDE 89 mmol/L (98-107); CO2 24 mmol/L (21-32); CREATININE 1.1 mg/dL (0.55-1.3); GLUCOSE,RANDOM 184 mg/dL (74-106); LIPASE 80 U/L (73-393); MAGNESIUM 1.9 mg/dL (1.8-2.4); POTASSIUM 4.5 mmol/L (3.5-5.1); SGOT/AST 33 U/L (15-37); SGPT/ALT 52 U/L (13-61); SODIUM 122 mmol/L (136-145); TOT PROT 5.8 g/dl (6.4-8.2)
[2018-10-02 01:23] LABS: CALCIUM 6.3 mg/dL (8.5-10.1)
[2018-10-02 01:32] LABS: ANISOCYTOSIS 1+; MACROCYTOSIS 0; PLATELET ESTIMATE DECREASED
[2018-10-02] MEDS ORDERED: VANCOMYCIN 1 GM in D5W (PRE-DOCKED) 1,000 MG/250 ML IVPB ONE (01:37)
[2018-10-02] MEDS ORDERED: VANCOMYCIN 1 GRAM (PRE-DOCKED) 1,000 MG/250 ML BAG IVPB ONE (01:42)
--- NOTE | 2018-10-02 02:07 | HP ---
CHIEF COMPLAINT: fever PCP: Gladis HISTORY OF PRESENT ILLNESS: 68yo woman with metastatic left breast cancer- dx in 2017 with chemo q week, radiation therapy brought to ER after being found to have fever of 103F at home. Came to hospital after speaking to Dr. Galvan. Complains of bone pain from mets from cancer. C/o several episodes of nonbloody vomiting and well as some diarrhea with BRBPR. Streaks of blood, reports history of hemorrhoids. ER course was notable for: (1) cxr (2) zosyn (3) vancomycin Recent Travel: no PAST MEDICAL HISTORY: metastatic breast cancer (left breast) PAST SURGICAL HISTORY: hysterectomy, right chest chemo-port placement Social History: Smoking:no Alcohol:no Drugs: no Family History: Allergies No Known Drug Allergies Allergy (Verified 10/01/18 23:17) HOME MEDICATIONS: Home Medications Medication Instructions Recorded Alprazolam [Xanax] 1 mg PO HS 05/30/17 Gabapentin 300 mg PO TID 05/30/17 Lisinopril/Hydrochlorothiazide 1 each PO DAILY 05/30/17 [Lisinopril-Hctz 10-12.5 mg Tab] Metoprolol Succinate [Toprol Xl] 25 mg PO DAILY 05/30/17 Tramadol HCl 50 mg PO PRN 05/30/17 Oxycodone HCl/Acetaminophen 1 each PO Q4H PRN 02/05/18 [Oxycodon-Acetaminophen 7.5-325] Famotidine [Pepcid] 20 mg PO BID #60 tablet 02/21/18 Lactobacillus Acidophilus [Bacid -] 1 tab PO DAILY #30 tab 02/21/18 Amitriptyline HCl [Elavil -] 25 mg PO HS #30 tablet 05/13/18 REVIEW OF SYSTEMS CONSTITUTIONAL: Absent: diaphoresis, , loss of appetite, weight change present- fever, chills, generalized weakness, malaise HEENT: Absent: rhinorrhea, nasal congestion, throat pain, throat swelling, difficulty swallowing, mouth swelling, ear pain, eye pain, visual changes CARDIOVASCULAR: Absent: chest pain, syncope, palpitations, irregular heart rate, lightheadedness , peripheral edema RESPIRATORY: Absent: cough, shortness of breath, dyspnea with exertion, orthopnea, wheezing, stridor, hemoptysis GASTROINTESTINAL: Absent: abdominal pain, abdominal distension, constipation, melena, hematochezia present- nausea, vomiting, diarrhea, GENITOURINARY: Absent: dysuria, frequency, urgency, hesitancy, hematuria, flank pain, genital pain MUSCULOSKELETAL: Absent: myalgia, joint swelling, back pain, neck pain present- arthralgia SKIN: Absent: rash, itching, pallor HEMATOLOGIC/IMMUNOLOGIC: Absent: easy bleeding, easy bruising, lymphadenopathy, frequent infections ENDOCRINE: Absent: unexplained weight gain, unexplained weight loss, heat intolerance, cold intolerance NEUROLOGIC: Absent: headache, focal weakness or paresthesias, dizziness, unsteady gait, seizure, mental status changes, bladder or bowel incontinence PSYCHIATRIC: Absent: anxiety, depression, suicidal or homicidal ideation, hallucinations. PHYSICAL EXAMINATION Vital Signs - 24 hr 10/01/18 23:14 Temperature 98.8 F Pulse Rate 122 H Respiratory 20 Rate Blood Pressure 94/58 L O2 Sat by Pulse 97 Oximetry (%) GENERAL: Awake, alert, and fully oriented, in no acute distress. HEAD: Normal with no signs of trauma. EYES: Pupils equal, round and reactive to light, extraocular movements intact, sclera anicteric, conjunctiva clear. No lid lag. EARS, NOSE, THROAT: Ears normal, nares patent, oropharynx clear without exudates. Moist mucous membranes. NECK: Normal range of motion, supple without lymphadenopathy, JVD, or masses. LUNGS: Breath sounds equal, clear to auscultation bilaterally. No wheezes, and no crackles. No accessory muscle use. chest -right upper chest chemo-port in place HEART: Regular rate and rhythm, normal S1 and S2 without murmur, rub or gallop. ABDOMEN: Soft, nontender, not distended, normoactive bowel sounds, no guarding, no rebound, no masses. MUSCULOSKELETAL: Normal range of motion at all joints. No bony deformities or tenderness. No CVA tenderness. UPPER EXTREMITIES: 2+ pulses, warm, well-perfused. No cyanosis. No clubbing. No peripheral edema. LOWER EXTREMITIES: 2+ pulses, warm, well-perfused. No calf tenderness. No peripheral edema. NEUROLOGICAL: Cranial nerves II-XII intact. Normal speech. Normal gait. PSYCHIATRIC: Cooperative. Good eye contact. Appropriate mood and affect. SKIN: Warm, dry, normal turgor, no rashes or lesions noted, normal capillary refill. Laboratory Results - last 24 hr 10/02/18 10/02/18 10/02/18 00:01 00:01 00:01 WBC 1.7 L* RBC 2.62 L Hgb 7.9 L Hct 22.1 L MCV 84.6 MCH 30.0 MCHC 35.5 RDW 18.3 H Plt Count 121 L D MPV 7.2 L Absolute Neuts (auto) 1.4 L Neutrophils % 81.2 Neutrophils % (Manual) 80.6 Band Neutrophils % 4.8 Lymphocytes % 11.2 D Lymphocytes % (Manual) 8.7 D Monocytes % 7.4 Monocytes % (Manual) 4 Eosinophils % 0.0 D Eosinophils % (Manual) 0.0 Basophils % 0.2 Basophils % (Manual) 0.0 Myelocytes % (Man) 0 D Promyelocytes % (Man) 0 Blast Cells % (Manual) 0 Nucleated RBC % 2 H Metamyelocytes 1 D Hypochromia 0 Platelet Estimate Decreased Polychromasia 1+ Poikilocytosis 1+ Anisocytosis 1+ Microcytosis 1+ Macrocytosis 0 PT with INR 14.50 H INR 1.23 H PTT (Actin FS) 32.6 VBG pH 7.44 H POC VBG pCO2 32.0 L POC VBG pO2 47.6 H VBG HCO3 21.2 L VBG O2 Sat (Bertha) 82.5 H VBG Base Excess -2.1 L Sodium Potassium Chloride Carbon Dioxide Anion Gap BUN Creatinine Est GFR (CKD-EPI)AfAm Est GFR (CKD-EPI)NonAf Random Glucose Lactic Acid Calcium Magnesium Total Bilirubin AST ALT Alkaline Phosphatase Creatine Kinase Troponin I Total Protein Albumin Lipase TSH 10/02/18 10/02/18 00:01 00:01 WBC RBC Hgb Hct MCV MCH MCHC RDW Plt Count MPV Absolute Neuts (auto) Neutrophils % Neutrophils % (Manual) Band Neutrophils % Lymphocytes % Lymphocytes % (Manual) Monocytes % Monocytes % (Manual) Eosinophils % Eosinophils % (Manual) Basophils % Basophils % (Manual) Myelocytes % (Man) Promyelocytes % (Man) Blast Cells % (Manual) Nucleated RBC % Metamyelocytes Hypochromia Platelet Estimate Polychromasia Poikilocytosis Anisocytosis Microcytosis Macrocytosis PT with INR INR PTT (Actin FS) VBG pH POC VBG pCO2 POC VBG pO2 VBG HCO3 VBG O2 Sat (Bertha) VBG Base Excess Sodium 122 L Potassium 4.5 Chloride 89 L Carbon Dioxide 24 Anion Gap 9 BUN 18.0 Creatinine 1.1 Est GFR (CKD-EPI)AfAm 60.59 Est GFR (CKD-EPI)NonAf 52.28 Random Glucose 184 H Lactic Acid 1.5 Calcium 6.3 L* Magnesium 1.9 Total Bilirubin 2.8 H AST 33 ALT 52 Alkaline Phosphatase 396 H Creatine Kinase 113 Troponin I < 0.02 Total Protein 5.8 L Albumin 3.1 L Lipase 80 TSH 0.59 cxr -reviewed ASSESSMENT/PLAN: #Neutropenic fever - unknown source. May be blood -borne pathogen from chemo- port. Lactate was wnl -admit to med/surg -blood cultures x2 -urine culture -ua -consider to remove port if persistent fevers -zosyn -vancomcyin - tylenol po for fevers #Hyponatremia- acute on chronic. May be from nausea/vomiting vs from malignancy vs from HCTZ -stop diuretics -gentle IV fluid hydration with NS -monitor bmp q6hrs -renal consult -zofran prn if nausea or vomiting -bed rest -fall precautions #Hypocalcemia -calcium supplementation #Bright red blood per rectum- history of hemorroids reported. Unable to perform ROBSON due to severe pain in knees with movement. Severe anemia noted. -monitor VS closely -repeat CBC q6hrs -type and screen, pt, ptt -maintain hgb >7 -GI consult -ROBSON when less pain #Severe normocytic anemia- may be from underlying malignancy vs rectal bleed #Breast cancer -po sr morphine bid with IV pushes for breakthrough pain -moderate to high risk for dvt- malignancy, bed bound - heparin sc for dvt ppx Advanced directives -DNR/DNI Visit type - Emergency Visit Emergency Visit: Yes ED Registration Date: 10/02/18 Care time: The patient presented to the Emergency Department on the above date and was hospitalized for further evaluation of their emergent condition. - New Patient This patient is new to me today: Yes Date on this admission: 10/02/18 - Critical Care Critical Care patient: No
[2018-10-02] MEDS ORDERED: SODIUM CHLORIDE 1,000 ML IV SCH (02:15)
[2018-10-02 02:41] LABS: EPI CELLS 9.6 /HPF (0-5/HPF); HYALINE CASTS 17 /lpf (0-8); PH,URINE 5.5 (5.0-8.0); URINE APPEARANCE CLOUDY; URINE BACTERIA 79.1 /hpf (NEGATIVE); URINE BILIRUBIN 1+ (NEGATIVE); URINE COLOR DK YELLOW; URINE GLUCOSE (UA) TRACE (NEGATIVE); URINE KETONE TRACE (NEGATIVE); URINE LEUK ESTERASE 1+ (NEGATIVE); URINE NITRITE NEGATIVE (NEGATIVE); URINE PROTEIN TRACE (NEGATIVE); URINE RBC 3 /hpf (0-4); URINE WBC 9 /hpf (0-5)
[2018-10-02] MEDS ORDERED: RANITIDINE HCL 150 MG TABLET (FP) ONE ×2 (02:49→11:11)
[2018-10-02] MEDS: RANITIDINE HCL 150 MG TABLET (FP) PO SCH ×3 (02:50→22:02)
[2018-10-02] MEDS ORDERED: CALCIUM GLUCONATE 10% - 1,000 MG/10 ML VIAL IVPB ONE (02:51)
[2018-10-02] MEDS: ACETAMINOPHEN 1000 MG/100 ML VIAL (NON FORMULARY) IVPB PRN ×2 (04:57→14:31)
[2018-10-02] MEDS ORDERED: GABAPENTIN 100 MG CAPSULE (FP) ONE (06:13)
[2018-10-02] MEDS: GABAPENTIN 300 MG CAPSULE (FP) PO SCH ×3 (06:15→22:02)
[2018-10-02 07:46] LABS: HEMATOCRIT 16.6 % (32.4-45.2); MCH 30.1 pg (25.7-33.7); MCHC 35.3 g/dl (32.0-36.0); MEAN CELL VOLUME 85.3 fl (80-96); MEAN PLT VOLUME 7.3 fl (7.5-11.1); PLATELET COUNT 98 K/MM3 (134-434); RBC 1.95 M/mm3 (3.60-5.2); RDW 18.7 % (11.6-15.6)
[2018-10-02 08:03] LABS: BLOOD UREA NITROGEN 15.5 mg/dL (7-18); POTASSIUM 4.7 mmol/L (3.5-5.1)
[2018-10-02 08:16] LABS: HEMOGLOBIN 5.9 GM/dL (10.7-15.3)
[2018-10-02 08:17] LABS: CALCIUM 5.9 mg/dL (8.5-10.1)
[2018-10-02] MEDS ORDERED: HEPARIN NA (PORCINE) 5,000 UNITS/ML 1ML VIAL SQ SCH (10:00)
[2018-10-02] MEDS: PIPERACILLIN/TAZOB 4.5 GM 4.5 GM in DEXTROSE 5%-WATER 100 ML IVPB SCH ×2 (11:06→20:06)
[2018-10-02] MEDS ORDERED: HEPARIN NA (PORCINE) 5,000 UNITS/ML 1ML VIAL ONE (11:11)
[2018-10-02] MEDS ORDERED: morphine SO4 SUSTAINED ACTING 15 MG TABLET.SA ONE (11:11)
[2018-10-02] MEDS: morphine SO4 SUSTAINED ACTING 15 MG TABLET.SA PO SCH ×2 (11:15→22:00)
--- NOTE | 2018-10-02 11:15 | CON.ID ---
Consult Referred by:: dr richards Reason for Consultation:: neutropenic fever - History of Present Illness Chief Complaint: fever, chills History of Present Illness: 68 yo female with metastatic breast cancer on chemo, just completed RT of her neck on Thursday developed chills yesterday am, then vomited and had fever to 103. came to ED where she was noted to be neutropenic and started on vanco/zosyn +blood in stools for last one week, +internal hemorrhoids labs this am with neutropenia and anemia afebrile this am no cough no abd pain vomiting resolved noted chronic darlene in left leg no dysuria llives with her daughter in [place] stays in the house no mosquito or tick bites - History Source History Provided By: Patient, Family Member Limitations to Obtaining History: No Limitations - Past Medical History Cardio/Vascular: Yes: HTN Gastrointestinal: Yes: GERD Heme/Onc: Yes: Cancer (metastatic breast cancer) Psych: Yes: Anxiety - Past Surgical History Past Surgical History: Yes: Cholecystectomy, Hysterectomy - Alcohol/Substance Use Hx Alcohol Use: No History of Substance Use: reports: None - Smoking History Smoking history: Never smoked Have you smoked in the past 12 months: No - Social History Usual Living Arrangement: With Child ADL: Independent Place of : Other ([place]) History of Recent Travel: No Home Medications - Allergies Allergies/Adverse Reactions: Allergies Allergy/AdvReac Type Severity Reaction Status Date / Time No Known Drug Allergies Allergy Verified 10/01/18 23:17 - Home Medications Home Medications: Ambulatory Orders Alprazolam [Xanax] 1 mg PO HS 05/30/17 Gabapentin 300 mg PO TID 05/30/17 Lisinopril/Hydrochlorothiazide [Lisinopril-Hctz 10-12.5 mg Tab] 1 each PO DAILY 05/30/17 Metoprolol Succinate [Toprol Xl] 25 mg PO DAILY 05/30/17 Tramadol HCl 50 mg PO PRN 05/30/17 Oxycodone HCl/Acetaminophen [Oxycodon-Acetaminophen 7.5-325] 1 each PO Q4H PRN 02/05/18 Famotidine [Pepcid] 20 mg PO BID #60 tablet 02/21/18 Lactobacillus Acidophilus [Bacid -] 1 tab PO DAILY #30 tab 02/21/18 Amitriptyline HCl [Elavil -] 25 mg PO HS #30 tablet 01/24/19 Family Disease History - Family Disease History Family Disease History: CA: Brother, Sister Review of Systems - Review of Systems Constitutional: reports: Chills, Fever Eyes: reports: No Symptoms HENT: reports: No Symptoms Neck: reports: No Symptoms Cardiovascular: reports: No Symptoms Respiratory: reports: No Symptoms Gastrointestinal: reports: Other (per HPI) Genitourinary: reports: No Symptoms Musculoskeletal: reports: Extremity Pain (LLE chronic leg pain- uses wheelchair and walker at home) Physical Exam Vital Signs: Vital Signs Temperature 99.1 F 10/02/18 07:00 Pulse Rate 99 H 10/02/18 10:04 Respiratory Rate 18 10/02/18 10:04 Blood Pressure 103/62 10/02/18 10:04 O2 Sat by Pulse Oximetry (%) 100 10/02/18 10:04 Constitutional: Yes: Well Nourished, No Distress, Calm Eyes: Yes: Conjunctiva Clear HENT: Yes: Atraumatic, Normocephalic Neck: Yes: Supple, Other (PORT) Cardiovascular: Yes: Regular Rate and Rhythm Respiratory: Yes: CTA Bilaterally Gastrointestinal: Yes: Normal Bowel Sounds, Soft ...Rectal Exam: Yes: Deferred Renal/: No: Bladder Distention, CVA Tenderness - Left, CVA Tenderness - Right Extremities: Yes: WNL Edema: LLE: Trace Integumentary: Yes: Other (port site no erythema, nontender) Neurological: Yes: Alert, Oriented Labs: CBC, BMP 10/02/18 06:36 10/02/18 06:36 Problem List - Problems (1) Neutropenic fever Code(s): D70.9 - NEUTROPENIA, UNSPECIFIED; R50.81 - FEVER PRESENTING WITH CONDITIONS CLASSIFIED ELSEWHERE (2) Pancytopenia Code(s): D61.818 - OTHER PANCYTOPENIA (3) Rectal bleeding Code(s): K62.5 - HEMORRHAGE OF ANUS AND RECTUM Assessment/Plan neutropenic fevers continue broadspectrum antibiotics vancomycin and zosyn f/u cultures f/u with GI regarding rectal bleeding transfuse as needed will f/u DNR/DNI
[2018-10-02] MEDS: metoPROLOL SUCCINATE 25 MG TAB.SR.24H (FP) PO SCH (11:16)
[2018-10-02] MEDS ORDERED: FUROSEMIDE 40 MG/4 ML INJECTABLE VIAL IVPUSH SCH (12:17)
--- NOTE | 2018-10-02 12:25 | PN ---
Progress Note, Physician History of Present Illness: pt seen/examined in er chart reviewed well known to me from previous admission awake/ comfortable feels better denies cp/ sob - Current Medication List Current Medications: Active Medications Acetaminophen (Ofirmev Injection -) 1,000 mg IVPB Q6H PRN PRN Reason: FEVER Last Admin: 10/02/18 04:57 Dose: 1,000 mg Alprazolam (Xanax -) 1 mg PO HS CARTER Amitriptyline HCl (Elavil -) 25 mg PO HS CARTER Furosemide (Lasix Injection -) 20 mg IVPUSH ONCE ONE Stop: 10/02/18 12:18 Gabapentin (Neurontin -) 300 mg PO TID CARTER Last Admin: 10/02/18 06:15 Dose: 300 mg Sodium Chloride (Normal Saline -) 1,000 mls @ 50 mls/hr IV ASDIR CARTER Stop: 10/03/18 02:13 Last Admin: 10/02/18 02:29 Dose: 50 mls/hr Vancomycin HCl (Vancomycin (Pre-Docked)) 1,000 mg in 250 mls @ 166.667 mls/hr IVPB Q12H CARTER; Protocol Piperacillin Sod/Tazobactam (Sod 4.5 gm/ Dextrose) 100 mls @ 200 mls/hr IVPB Q8H-IV CARTER; Protocol Last Admin: 10/02/18 11:06 Dose: 200 mls/hr Metoprolol Succinate (Toprol Xl -) 25 mg PO DAILY [facility] Last Admin: 10/02/18 11:16 Dose: Not Given Morphine Sulfate (Morphine Sulfate) 4 mg IVPUSH Q4H PRN PRN Reason: PAIN LEVEL 6-10 Morphine Sulfate (Ms Contin -) 15 mg PO BID [facility] Last Admin: 10/02/18 11:15 Dose: 15 mg Ranitidine HCl (Zantac -) 150 mg PO BID [facility] Last Admin: 10/02/18 11:15 Dose: 150 mg - Objective Vital Signs: Vital Signs Temperature 99.1 F 10/02/18 07:00 Pulse Rate 99 H 10/02/18 10:04 Respiratory Rate 18 10/02/18 10:04 Blood Pressure 103/62 10/02/18 10:04 O2 Sat by Pulse Oximetry (%) 100 10/02/18 10:04 Constitutional: Yes: No Distress, Calm Eyes: Yes: Conjunctiva Clear Neck: Yes: Supple Cardiovascular: Yes: Regular Rate and Rhythm Respiratory: Yes: CTA Bilaterally Gastrointestinal: Yes: Soft Edema: No Neurological: Yes: Alert Psychiatric: Yes: Alert Labs: CBC, BMP 10/02/18 06:36 10/02/18 06:36 INR, PTT INR 1.23 (0.83-1.09) H 10/02/18 00:01 - ....Imaging Chest X-ray: Report Reviewed Ultrasound: Report Reviewed Problem List - Problems (1) GI bleed Code(s): K92.2 - GASTROINTESTINAL HEMORRHAGE, UNSPECIFIED (2) Fever Code(s): R50.9 - FEVER, UNSPECIFIED Qualifiers: Fever type: unspecified Qualified Code(s): R50.9 - Fever, unspecified (3) Metastatic breast cancer Code(s): C50.919 - MALIGNANT NEOPLASM OF UNSP SITE OF UNSPECIFIED FEMALE BREAST (4) Pancytopenia Code(s): D61.818 - OTHER PANCYTOPENIA Assessment/Plan Discussed with pt Family at bedside will transfuse lasix in between continue other meds hold bp meds if bp less than <90 Mild hydration. Abx per i/d Oncology to follow dvt prophylaxis with scd Will d/c heparin as pt had blood in stools will follow Pt is DNR/DI
--- NOTE | 2018-10-02 13:31 | PN ---
Problem List - Problems (1) GI bleed Code(s): K92.2 - GASTROINTESTINAL HEMORRHAGE, UNSPECIFIED (2) Fever Code(s): R50.9 - FEVER, UNSPECIFIED Qualifiers: Fever type: unspecified Qualified Code(s): R50.9 - Fever, unspecified (3) Metastatic breast cancer Code(s): C50.919 - MALIGNANT NEOPLASM OF UNSP SITE OF UNSPECIFIED FEMALE BREAST (4) Pancytopenia Code(s): D61.818 - OTHER PANCYTOPENIA (5) Neutropenic sepsis Code(s): A41.9 - SEPSIS, UNSPECIFIED ORGANISM; D70.9 - NEUTROPENIA, UNSPECIFIED (6) Sepsis Code(s): A41.9 - SEPSIS, UNSPECIFIED ORGANISM
[2018-10-02] MEDS: VANCOMYCIN 1 GRAM (PRE-DOCKED) 1,000 MG/250 ML BAG IVPB SCH (14:31)
--- NOTE | 2018-10-02 14:32 | CON.GI ---
Consult Consult Specialty:: GI coverage for Dr Menezes - History of Present Illness History of Present Illness: 68 y/o F with PMH of metastatic breast cancer was admitted with neutropenic sepsis. I was asked to evaluate the rectal bleeding. The rectal bleeding started 1 week ago. The rectal bleeding was moderate in amount. There was no LOC,chest oain and abdominal pain. The last episode was yesterday.She was evaluated by Dr Galvan and was noted to have internal hemorrhoids a few days ago. Her last colonoscopy was in [place] 2 years ago and reported to be normal. - Past Medical History Cardio/Vascular: Yes: HTN Gastrointestinal: Yes: GERD Psych: Yes: Anxiety - Past Surgical History Past Surgical History: Yes: Cholecystectomy, Hysterectomy - Alcohol/Substance Use Hx Alcohol Use: No History of Substance Use: reports: None - Smoking History Smoking history: Never smoked Have you smoked in the past 12 months: No - Social History Usual Living Arrangement: With Child ADL: Independent History of Recent Travel: No Home Medications - Allergies Allergies/Adverse Reactions: Allergies Allergy/AdvReac Type Severity Reaction Status Date / Time No Known Drug Allergies Allergy Verified 10/01/18 23:17 - Home Medications Home Medications: Ambulatory Orders Alprazolam [Xanax] 1 mg PO HS 05/30/17 Gabapentin 300 mg PO TID 05/30/17 Lisinopril/Hydrochlorothiazide [Lisinopril-Hctz 10-12.5 mg Tab] 1 each PO DAILY 05/30/17 Metoprolol Succinate [Toprol Xl] 25 mg PO DAILY 05/30/17 Tramadol HCl 50 mg PO PRN 05/30/17 Oxycodone HCl/Acetaminophen [Oxycodon-Acetaminophen 7.5-325] 1 each PO Q4H PRN 02/05/18 Famotidine [Pepcid] 20 mg PO BID #60 tablet 02/21/18 Lactobacillus Acidophilus [Bacid -] 1 tab PO DAILY #30 tab 02/21/18 Amitriptyline HCl [Elavil -] 25 mg PO HS #30 tablet 05/13/18 Family Disease History - Family Disease History Family Disease History: CA: Brother, Sister Physical Exam-GI Vital Signs: Vital Signs Temperature 99.1 F 10/02/18 07:00 Pulse Rate 99 H 10/02/18 10:04 Respiratory Rate 18 10/02/18 10:04 Blood Pressure 103/62 06/15/19 10:04 O2 Sat by Pulse Oximetry (%) 100 10/02/18 10:04 Constitutional: Yes: Well Nourished Eyes: Yes: Conjunctiva Clear HENT: Yes: Atraumatic, Tonsillar Exudate Cardiovascular: Yes: Regular Rate and Rhythm Respiratory: Yes: CTA Bilaterally ...Palpate: Yes: Soft. No: Firm/Rigid, Guarding, Hepatomegaly, Pulsatile Mass, Splenomegaly, Tenderness Labs: CBC, BMP 10/02/18 06:36 10/02/18 06:36 INR, PTT INR 1.23 (0.83-1.09) H 10/02/18 00:01 Problem List - Problems (1) Neutropenic sepsis Assessment/Plan: The aleft leg is larger than right leg and left knee appear to be inflammed R> consider ultrasound of lower extremity ID consult Code(s): A41.9 - SEPSIS, UNSPECIFIED ORGANISM; D70.9 - NEUTROPENIA, UNSPECIFIED (2) Rectal bleeding Assessment/Plan: R> transfuse to hgb of greater than 8 will need colonoscopy once medically improved Code(s): K62.5 - HEMORRHAGE OF ANUS AND RECTUM
--- NOTE | 2018-10-02 14:36 | CONSULT ---
Consult Consult Specialty:: Heme/onc Referred by:: Dr. Amos Reason for Consultation:: Breast ca - History of Present Illness Chief Complaint: fever History of Present Illness: 68F w/ ER/AR positive, 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 Last zometa on 09/07/18, on steroid taper (2 mg of dexamethasone daily currently) . Completed RT on 09/28 to spine and shoulder. Follows with neurosurgery. 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 Diffuse dural thickening at the cerebral convexities is unchanged. LPs have been non-diagnostic. Labs today with Hgb 7.9-->5.9 (?real drop over 6 hours). WBC 1000 (diff pending) , plt count 12>98. Na 124, corrected calcium 7, TB 2.8 LE doppler, UA and CXR negative. Blood cultures growing GPC Started on Zosyn/Vanco hydration, calcium supplementation. Feels ok currently. Endorses BLOOM. No new neurologic symptoms. No vomiting so far today but still had loose bloody stool. - Past Medical History Cardio/Vascular: Yes: HTN Gastrointestinal: Yes: GERD Psych: Yes: Anxiety - Past Surgical History Past Surgical History: Yes: Cholecystectomy, Hysterectomy - Alcohol/Substance Use Hx Alcohol Use: No History of Substance Use: reports: None - Smoking History Smoking history: Never smoked Have you smoked in the past 12 months: No - Social History Usual Living Arrangement: With Child ADL: Independent History of Recent Travel: No Home Medications - Allergies Allergies/Adverse Reactions: Allergies Allergy/AdvReac Type Severity Reaction Status Date / Time No Known Drug Allergies Allergy Verified 10/01/18 23:17 - Home Medications Home Medications: Ambulatory Orders Alprazolam [Xanax] 1 mg PO HS 05/30/17 Gabapentin 300 mg PO TID 05/30/17 Lisinopril/Hydrochlorothiazide [Lisinopril-Hctz 10-12.5 mg Tab] 1 each PO DAILY 05/30/17 Metoprolol Succinate [Toprol Xl] 25 mg PO DAILY 05/30/17 Tramadol HCl 50 mg PO PRN 05/30/17 Oxycodone HCl/Acetaminophen [Oxycodon-Acetaminophen 7.5-325] 1 each PO Q4H PRN 02/05/18 Famotidine [Pepcid] 20 mg PO BID #60 tablet 02/21/18 Lactobacillus Acidophilus [Bacid -] 1 tab PO DAILY #30 tab 02/21/18 Amitriptyline HCl [Elavil -] 25 mg PO HS #30 tablet 05/13/18 Family Disease History - Family Disease History Family Disease History: CA: Brother, Sister Review of Systems - Review of Systems Constitutional: reports: Chills, Diaphoresis, Fever Eyes: reports: No Symptoms Cardiovascular: reports: No Symptoms. denies: Chest Pain, Shortness of Breath Respiratory: reports: SOB on Exertion. denies: Cough Gastrointestinal: reports: Diarrhea, Rectal Bleeding, Vomiting Genitourinary: denies: No Symptoms Physical Exam Vital Signs: Vital Signs Temperature 99.1 F 10/02/18 07:00 Pulse Rate 99 H 10/02/18 10:04 Respiratory Rate 18 10/02/18 10:04 Blood Pressure 103/62 10/02/18 10:04 O2 Sat by Pulse Oximetry (%) 100 10/02/18 10:04 Constitutional: Yes: No Distress, Calm Cardiovascular: Yes: Regular Rate and Rhythm Respiratory: Yes: Regular, CTA Bilaterally Gastrointestinal: Yes: Normal Bowel Sounds, Soft Edema: LLE: 2+ (Per pt, for a few days, newly swollen), RLE: Trace Integumentary: Yes: Other (PAC site clean, without increased warmth or edema) Labs: CBC, BMP 10/02/18 06:36 10/02/18 06:36 Assessment/Plan 68F w/ ER/AR positive, 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 Found to have +blood cultures ([facility]). Mildly prolonged PT likely 2/2 poor PO intake, PTT normal. On vancomycin. Pending ID and GI evaluation. C/w dexamethasone 2 mg daily Re-ordered doppler for evaluation of pelvic veins given unexplained LE swelling c/w pain control Monitor CBC closely Will follow
[2018-10-02] MEDS: morphine SULFATE 4 MG/ML VIAL IVPUSH PRN (18:19)
[2018-10-02] MEDS: DEXAMETHASONE 4 MG TABLET (FP) PO SCH (18:19)
[2018-10-02] MEDS: AMITRIPTYLINE HCL 25 MG TABLET (FP) PO SCH (22:02)
[2018-10-02] MEDS: ALPRAZolam 0.25 MG TABLET PO SCH (22:02)
--- NOTE | 2018-10-02 23:16 | CON.NEP ---
Consult - History of Present Illness History of Present Illness: 68 y/o pt with breast ca with mets to bone admitted with fever and neutropenia associated with vomiting and bloody diarrhea. she also has a profound ANEMIA with hgb 6 she is referred for eval of HYPONATREMIA she has chronic hyponatremia in the low 130's now she has lower S Na levels Her meds include taxol weekly, lisinopril/HCTZ zometa and dexamethasone taper s/p RT to spine and shoulder mets include calvarium and c-spine and left mandible leg edema- doppler negative dvt cxr neg blood c/s GPCC empirical zosyn vanco - Past Medical History Cardio/Vascular: Yes: HTN Gastrointestinal: Yes: GERD Psych: Yes: Anxiety - Past Surgical History Past Surgical History: Yes: Cholecystectomy, Hysterectomy - Alcohol/Substance Use Hx Alcohol Use: No History of Substance Use: reports: None - Smoking History Smoking history: Never smoked Have you smoked in the past 12 months: No - Social History Usual Living Arrangement: With Child ADL: Independent History of Recent Travel: No Home Medications - Allergies Allergies/Adverse Reactions: Allergies Allergy/AdvReac Type Severity Reaction Status Date / Time No Known Drug Allergies Allergy Verified 10/01/18 23:17 - Home Medications Home Medications: Ambulatory Orders Alprazolam [Xanax] 1 mg PO HS 05/30/17 Gabapentin 300 mg PO TID 05/30/17 Lisinopril/Hydrochlorothiazide [Lisinopril-Hctz 10-12.5 mg Tab] 1 each PO DAILY 05/30/17 Metoprolol Succinate [Toprol Xl] 25 mg PO DAILY 05/30/17 Tramadol HCl 50 mg PO PRN 05/30/17 Oxycodone HCl/Acetaminophen [Oxycodon-Acetaminophen 7.5-325] 1 each PO Q4H PRN 02/05/18 Famotidine [Pepcid] 20 mg PO BID #60 tablet 02/21/18 Lactobacillus Acidophilus [Bacid -] 1 tab PO DAILY #30 tab 02/21/18 Amitriptyline HCl [Elavil -] 25 mg PO HS #30 tablet 05/13/18 Family Disease History - Family Disease History Family Disease History: CA: Brother, Sister Nephrology Consult - Height Height: 5 ft 3 in - Weight Weight: 143 lb - BMI Body Mass Index (BMI): 25.3 - Lab Results CBC,BMP: CBC, BMP 06/15/19 06:36 10/02/18 06:36 Anion Gap: Anion Gap Anion Gap 8 MMOL/L (8-16) 10/02/18 06:36 - Physical Examination Vital Signs: Vital Signs Temperature 99.2 F 10/02/18 18:42 Pulse Rate 100 H 10/02/18 18:42 Respiratory Rate 20 10/02/18 19:54 Blood Pressure 116/67 10/02/18 18:42 O2 Sat by Pulse Oximetry (%) 100 10/02/18 19:54 Assessment/Plan hyponatremia multifactorial she has underlying chronic hyponatremia at baseline now she presents with what seems acute worsening in the setting of acute illness with worse anemia, pain, and gi disturbance low urine osmolality is against siadh also moderate elevation of specific gravity suggests intravascular depletion probably related to poor po intake, decreased body fluids intravascular she received NS, PRBC and repoted to have good appetite with her meal tonight Plan- follow labs for resolution when causative factors of hyponatremia start to resolve
[2018-10-03] MEDS ORDERED: PIPERACILLIN/TAZOBACTAM 4.5 GM VIAL IVPB ONE ×4 (01:12→18:19)
[2018-10-03] MEDS ORDERED: DEXTROSE 5%-WATER 100 ML IVPB ONE ×4 (01:13→18:19)
[2018-10-03] MEDS: VANCOMYCIN 1 GRAM (PRE-DOCKED) 1,000 MG/250 ML BAG IVPB SCH ×2 (02:26→15:02)
[2018-10-03] MEDS: PIPERACILLIN/TAZOB 4.5 GM 4.5 GM in DEXTROSE 5%-WATER 100 ML IVPB SCH ×3 (02:27→18:20)
[2018-10-03] MEDS: GABAPENTIN 300 MG CAPSULE (FP) PO SCH ×3 (06:27→22:18)
[2018-10-03 08:19] LABS: BASO % 0.2 % (0-2.0); EOS % 0.3 % (0-4.5); HEMATOCRIT 26.4 % (32.4-45.2); HEMOGLOBIN 9.2 GM/dL (10.7-15.3); LYMPH % 12.6 % (8-40); MCH 29.3 pg (25.7-33.7); MCHC 34.8 g/dl (32.0-36.0); MEAN CELL VOLUME 84.2 fl (80-96); MEAN PLT VOLUME 7.6 fl (7.5-11.1); MONO % 8.9 % (3.8-10.2); RBC 3.13 M/mm3 (3.60-5.2); RDW 16.3 % (11.6-15.6); WHITE BLOOD COUNT 2.7 K/mm3 (4.0-10.0)
[2018-10-03 08:37] LABS: ALBUMIN 2.7 g/dl (3.4-5.0); BILIRUBIN,TOTAL 3.3 mg/dL (0.2-1); BLOOD UREA NITROGEN 10.8 mg/dL (7-18); CREATININE 0.8 mg/dL (0.55-1.3); TOT PROT 5.3 g/dl (6.4-8.2); URIC ACID 3.6 mg/dL (2.6-7.2)
[2018-10-03 08:46] LABS: CALCIUM 6.9 mg/dL (8.5-10.1)
[2018-10-03 09:10] LABS: PLATELET COUNT 104 K/MM3 (134-434)
[2018-10-03] MEDS: morphine SO4 SUSTAINED ACTING 15 MG TABLET.SA PO SCH ×2 (09:50→22:17)
[2018-10-03] MEDS: DEXAMETHASONE 4 MG TABLET (FP) PO SCH (09:51)
[2018-10-03] MEDS: RANITIDINE HCL 150 MG TABLET (FP) PO SCH ×2 (09:51→22:18)
[2018-10-03] MEDS: metoPROLOL SUCCINATE 25 MG TAB.SR.24H (FP) PO SCH (09:51)
--- NOTE | 2018-10-03 11:11 | PN ---
Progress Note (short form) - Note Progress Note: feels well no further fevers or chills no BM s/p blood transfusion Vital Signs Period Temp Pulse Resp BP Sys/Nuñez Pulse Ox Last 24 Hr 97.4 F-99.9 F 67-100 17-20 98-116/54-67 100-100 cor-rrr lungs clear abd soft,nt ext no edema no erythema of the legs port is not working to obtain blood-no erythema at the port site CBC, BMP 10/03/18 06:35 10/03/18 06:35 Microbiology 10/02/18 00:01 Blood - Peripheral Venous Blood Culture - Preliminary Strep Agalactiae Group B 10/02/18 00:01 Blood - Peripheral Venous Blood Culture - Preliminary Strep Agalactiae Group B a/p bacteremia- group b strep ?source, no signs of cellulitis, f/u urine culture repeat blood cultures today echo in am- neutropenia resolved-anc 2.1 history of metastatic breast cancer will adjust antibiotics when sensitivities are back in am d/w family at bedside Problem List - Problems (1) Neutropenic fever Code(s): D70.9 - NEUTROPENIA, UNSPECIFIED; R50.81 - FEVER PRESENTING WITH CONDITIONS CLASSIFIED ELSEWHERE (2) Pancytopenia Code(s): D61.818 - OTHER PANCYTOPENIA (3) Rectal bleeding Code(s): K62.5 - HEMORRHAGE OF ANUS AND RECTUM
--- NOTE | 2018-10-03 11:23 | PN ---
Progress Note (short form) - Note Progress Note: pt seen/ examined all f/u noted feels much better got 2 units of prbcs yesterday strep bactremia Vital Signs Temp 97.4 F L 10/03/18 06:00 Pulse 91 H 10/03/18 06:00 Resp 18 10/03/18 06:00 BP 105/66 10/03/18 06:00 Pulse Ox 100 10/02/18 21:00 Intake & Output 10/02/18 10/02/18 10/03/18 11:59 23:59 11:59 Intake Total 1050 1100 Balance 1050 1100 Weight 143 lb Intake: IV 400 350 Normal Saline - 1,000 ml 350 350 @ 50 mls/hr IV ASDIR CARTER Rx#:[id number] Normal Saline - 1,946 ml 50 @ 973 mls/hr IV ONCE ONE Rx#:[id number] IVPB 250 350 Oral 400 400 Other: Voiding Method Bedpan Diaper Bedside Commode # Unmeasured Voids Void 1 3 Height 5 ft 3 in Body Mass Index (BMI) 25.3 Active Medications Acetaminophen (Ofirmev Injection -) 1,000 mg IVPB Q6H PRN PRN Reason: FEVER Last Admin: 10/02/18 14:31 Dose: 1,000 mg Alprazolam (Xanax -) 1 mg PO HS [facility] Last Admin: 10/02/18 22:02 Dose: 1 mg Amitriptyline HCl (Elavil -) 25 mg PO HS [facility] Last Admin: 10/02/18 22:02 Dose: 25 mg Dexamethasone (Decadron -) 2 mg PO DAILY [facility] Last Admin: 10/03/18 09:51 Dose: 2 mg Gabapentin (Neurontin -) 300 mg PO TID [facility] Last Admin: 10/03/18 06:27 Dose: 300 mg Vancomycin HCl (Vancomycin (Pre-Docked)) 1,000 mg in 250 mls @ 166.667 mls/hr IVPB Q12H [facility]; Protocol Last Admin: 10/03/18 02:26 Dose: 166.667 mls/hr Piperacillin Sod/Tazobactam (Sod 4.5 gm/ Dextrose) 100 mls @ 200 mls/hr IVPB Q8H-IV [facility]; Protocol Metoprolol Succinate (Toprol Xl -) 25 mg PO DAILY [facility] Last Admin: 10/03/18 09:51 Dose: 25 mg Morphine Sulfate (Morphine Sulfate) 4 mg IVPUSH Q4H PRN PRN Reason: PAIN LEVEL 6-10 Last Admin: 10/02/18 18:19 Dose: 4 mg Morphine Sulfate (Ms Contin -) 15 mg PO BID [facility] Last Admin: 10/03/18 09:50 Dose: 15 mg Ranitidine HCl (Zantac -) 150 mg PO BID [facility] Last Admin: 10/03/18 09:51 Dose: 150 mg CBC, BMP 10/03/18 06:35 10/03/18 06:35 Microbiology 10/02/18 02:00 Urine Culture - Final Urine - Urine Clean Catch 10/02/18 00:01 Blood Culture - Preliminary Blood - Peripheral Venous Strep Agalactiae Group B 10/02/18 00:01 Blood Culture - Preliminary Blood - Peripheral Venous Strep Agalactiae Group B Hepatic Panel Total Bilirubin 3.3 mg/dL (0.2-1) H 10/03/18 06:35 AST 19 U/L (15-37) 10/03/18 06:35 ALT 35 U/L (13-61) 10/03/18 06:35 Alkaline Phosphatase 297 U/L (45-117) H 10/03/18 06:35 Albumin 2.7 g/dl (3.4-5.0) L 10/03/18 06:35 Physical Exam Constitutional: Yes: No Distress, Calm and comfortable Eyes: Yes: Conjunctiva Clear Neck: Yes: Supple. no jvd Cardiovascular: Yes: Regular Rate and Rhythm Respiratory: Yes: CTA Bilaterally Gastrointestinal: Yes: Soft Edema: No Neurological: Yes: Alert Psychiatric: Yes: Alert knees -- mild swelling left> right slight warmth- no reddness - ....Imaging Chest X-ray: Report Reviewed Ultrasound: Report Reviewed Assessment/Plan Better Strep bactremia Discussed with pt/ pts son Abx per i/d-- discussed with Dr. Rodriguez again today Oncology following on steroids will order x ray - knees echo check uric acid also will follow Pt is DNR/DI Problem List - Problems (1) Fever Code(s): R50.9 - FEVER, UNSPECIFIED Qualifiers: Fever type: unspecified Qualified Code(s): R50.9 - Fever, unspecified (2) Metastatic breast cancer Code(s): C50.919 - MALIGNANT NEOPLASM OF UNSP SITE OF UNSPECIFIED FEMALE BREAST (3) Pancytopenia Code(s): D61.818 - OTHER PANCYTOPENIA (4) Neutropenic sepsis Code(s): A41.9 - SEPSIS, UNSPECIFIED ORGANISM; D70.9 - NEUTROPENIA, UNSPECIFIED (5) Sepsis Code(s): A41.9 - SEPSIS, UNSPECIFIED ORGANISM
[2018-10-03] MEDS: morphine SULFATE 4 MG/ML VIAL IVPUSH PRN (12:53)
--- NOTE | 2018-10-03 15:52 | PN ---
Progress Note (short form) - Note Progress Note: hyponatremia multifactorial low urine osmolality is against siadh probably related to poor po intake, decreased body fluids intravascular Breast Ca with mets Severe anemia transfused Fever undetermined source Current Medications Acetaminophen (Ofirmev Injection -) 1,000 mg IVPB Q6H PRN PRN Reason: FEVER Last Admin: 10/02/18 14:31 Dose: 1,000 mg Alprazolam (Xanax -) 1 mg PO HS [facility] Last Admin: 10/02/18 22:02 Dose: 1 mg Amitriptyline HCl (Elavil -) 25 mg PO HS [facility] Last Admin: 10/02/18 22:02 Dose: 25 mg Dexamethasone (Decadron -) 2 mg PO DAILY [facility] Last Admin: 10/03/18 09:51 Dose: 2 mg Gabapentin (Neurontin -) 300 mg PO TID [facility] Last Admin: 10/03/18 15:02 Dose: 300 mg Vancomycin HCl (Vancomycin (Pre-Docked)) 1,000 mg in 250 mls @ 166.667 mls/hr IVPB Q12H [facility]; Protocol Last Admin: 10/03/18 15:02 Dose: 166.667 mls/hr Piperacillin Sod/Tazobactam (Sod 4.5 gm/ Dextrose) 100 mls @ 200 mls/hr IVPB Q8H-IV [facility]; Protocol Metoprolol Succinate (Toprol Xl -) 25 mg PO DAILY [facility] Last Admin: 10/03/18 09:51 Dose: 25 mg Morphine Sulfate (Morphine Sulfate) 4 mg IVPUSH Q4H PRN PRN Reason: PAIN LEVEL 6-10 Last Admin: 10/03/18 12:53 Dose: 4 mg Morphine Sulfate (Ms Contin -) 15 mg PO BID [facility] Last Admin: 10/03/18 09:50 Dose: 15 mg Ranitidine HCl (Zantac -) 150 mg PO BID [facility] Last Admin: 10/03/18 09:51 Dose: 150 mg Last Vital Signs Temp Pulse Resp BP Pulse Ox 98.5 F 88 20 116/63 100 10/03/18 15:01 10/03/18 15:01 10/03/18 15:01 10/03/18 15:01 10/02/18 21:00 more alert in nad c/o left knee pain and sweollen feet Lungs clear heart reg Abd soft nonender CBC, BMP 10/03/18 06:35 10/03/18 06:35 IMP- Hyponatremia multifactoria serum sodium is now back to her baseline she is almost back to her baseline clinicl status although she is still weak and in need of assistance with getting out of bed and using the bedside commode Plan- d/c IVF intake s good
--- NOTE | 2018-10-03 17:07 | EKG ---
Test Reason : Blood Pressure : / mmHG Vent. Rate : 108 BPM Atrial Rate : 108 BPM P-R Int : 114 ms QRS Dur : 092 ms QT Int : 336 ms P-R-T Axes : 017 000 097 degrees QTc Int : 450 ms SINUS TACHYCARDIA ABNORMAL QRS-T ANGLE, CONSIDER PRIMARY T WAVE ABNORMALITY ABNORMAL ECG WHEN COMPARED WITH ECG OF 15-JUL-2018 08:28, T WAVE INVERSION NOW EVIDENT IN LATERAL LEADS Confirmed by MD MACY, NOAH ([id number]) on 10/03/2018 5:07:38 PM Referred By: Confirmed By:NOAH CAVAZOS MD
--- NOTE | 2018-10-03 20:30 | PN ---
Progress Note, Physician History of Present Illness: Feeling much better today. No bloody BMs. Denies SOB, chills. - Current Medication List Current Medications: Active Medications Acetaminophen (Ofirmev Injection -) 1,000 mg IVPB Q6H PRN PRN Reason: FEVER Last Admin: 10/02/18 14:31 Dose: 1,000 mg Alprazolam (Xanax -) 1 mg PO HS [facility] Last Admin: 10/02/18 22:02 Dose: 1 mg Amitriptyline HCl (Elavil -) 25 mg PO HS [facility] Last Admin: 10/02/18 22:02 Dose: 25 mg Dexamethasone (Decadron -) 2 mg PO DAILY [facility] Last Admin: 10/03/18 09:51 Dose: 2 mg Gabapentin (Neurontin -) 300 mg PO TID [facility] Last Admin: 10/03/18 15:02 Dose: 300 mg Vancomycin HCl (Vancomycin (Pre-Docked)) 1,000 mg in 250 mls @ 166.667 mls/hr IVPB Q12H [facility]; Protocol Last Admin: 10/03/18 15:02 Dose: 166.667 mls/hr Piperacillin Sod/Tazobactam (Sod 4.5 gm/ Dextrose) 100 mls @ 200 mls/hr IVPB Q8H-IV [facility]; Protocol Last Admin: 10/03/18 18:20 Dose: 200 mls/hr Metoprolol Succinate (Toprol Xl -) 25 mg PO DAILY [facility] Last Admin: 10/03/18 09:51 Dose: 25 mg Morphine Sulfate (Morphine Sulfate) 4 mg IVPUSH Q4H PRN PRN Reason: PAIN LEVEL 6-10 Last Admin: 10/03/18 12:53 Dose: 4 mg Morphine Sulfate (Ms Contin -) 15 mg PO BID [facility] Last Admin: 10/03/18 09:50 Dose: 15 mg Ranitidine HCl (Zantac -) 150 mg PO BID [facility] Last Admin: 10/03/18 09:51 Dose: 150 mg - Objective Vital Signs: Vital Signs Temperature 98.4 F 10/03/18 18:47 Pulse Rate 77 10/03/18 18:47 Respiratory Rate 20 10/03/18 18:47 Blood Pressure 115/63 10/03/18 18:47 O2 Sat by Pulse Oximetry (%) 100 10/03/18 09:00 Constitutional: Yes: No Distress Eyes: Yes: Conjunctiva Clear Cardiovascular: Yes: Regular Rate and Rhythm Respiratory: Yes: Regular, CTA Bilaterally Gastrointestinal: Yes: Soft. No: Distention Edema: No Edema: LLE: 2+, RLE: Trace Neurological: Yes: Alert, Oriented Labs: CBC, BMP 10/03/18 06:35 10/03/18 06:35 INR, PTT INR 1.23 (0.83-1.09) H 10/02/18 00:01 Assessment/Plan 68F w/ ER/GA positive, 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 Found to have strep agalactiae bacteremia. On vanco/zosyn. Afebrile >24 hours. Repeat blood cultures pending. Responded well to PRBC with no further bloody BMs. ANC normal today. C/w dexamethasone 2 mg daily Pelvic vein doppler for eval of LLE swelling also neg Will follow
[2018-10-03] MEDS: AMITRIPTYLINE HCL 25 MG TABLET (FP) PO SCH (22:18)
[2018-10-03] MEDS: ALPRAZolam 0.25 MG TABLET PO SCH (22:18)
[2018-10-04] MEDS ORDERED: PIPERACILLIN/TAZOBACTAM 4.5 GM VIAL IVPB ONE ×4 (01:08→16:56)
[2018-10-04] MEDS: VANCOMYCIN 1 GRAM (PRE-DOCKED) 1,000 MG/250 ML BAG IVPB SCH ×2 (01:48→14:21)
[2018-10-04] MEDS: PIPERACILLIN/TAZOB 4.5 GM 4.5 GM in DEXTROSE 5%-WATER 100 ML IVPB SCH ×3 (01:49→17:33)
[2018-10-04] MEDS: GABAPENTIN 300 MG CAPSULE (FP) PO SCH ×3 (06:36→22:01)
[2018-10-04 07:07] LABS: BASO % 0.4 % (0-2.0); EOS % 0.1 % (0-4.5); HEMATOCRIT 24.9 % (32.4-45.2); HEMOGLOBIN 8.7 GM/dL (10.7-15.3); LYMPH % 16.7 % (8-40); MCH 29.2 pg (25.7-33.7); MCHC 34.9 g/dl (32.0-36.0); MEAN CELL VOLUME 83.8 fl (80-96); MEAN PLT VOLUME 7.8 fl (7.5-11.1); MONO % 13.2 % (3.8-10.2); NEUT % 69.6 % (42.8-82.8); PLATELET COUNT 105 K/MM3 (134-434); RBC 2.98 M/mm3 (3.60-5.2); RDW 17.1 % (11.6-15.6); WHITE BLOOD COUNT 2.8 K/mm3 (4.0-10.0)
[2018-10-04 07:36] LABS: ALBUMIN 2.4 g/dl (3.4-5.0); BILIRUBIN,TOTAL 0.9 mg/dL (0.2-1); BLOOD UREA NITROGEN 11.8 mg/dL (7-18); CALCIUM 7.5 mg/dL (8.5-10.1); CREATININE 0.9 mg/dL (0.55-1.3); POTASSIUM 4.7 mmol/L (3.5-5.1); TOT PROT 5.1 g/dl (6.4-8.2)
[2018-10-04] MEDS ORDERED: DEXTROSE 5%-WATER 100 ML IVPB ONE ×3 (09:44→16:56)
--- NOTE | 2018-10-04 09:45 | PN ---
Progress Note (short form) - Note Progress Note: Pt seen/ examined feels much better slept well no complains Vital Signs Temp 97.7 F 10/04/18 05:42 Pulse 79 10/04/18 05:42 Resp 20 10/04/18 05:42 BP 93/57 L 10/04/18 05:42 Pulse Ox 100 10/03/18 21:00 Intake & Output 10/03/18 10/03/18 10/04/18 11:59 23:59 11:59 Intake Total 1100 350 600 Balance 1100 350 600 Intake: IV 350 0 Normal Saline - 1,000 ml 350 @ 50 mls/hr IV ASDIR CARTER Rx#:[id number] Saline Lock # 2 0 Saline lock #1 0 IVPB 350 350 Oral 400 350 250 Other: Voiding Method Bedside Commode Bedside Commode Toilet # Unmeasured Voids Void 3 2 1 Bowel Movement No Active Medications Acetaminophen (Ofirmev Injection -) 1,000 mg IVPB Q6H PRN PRN Reason: FEVER Last Admin: 10/02/18 14:31 Dose: 1,000 mg Alprazolam (Xanax -) 1 mg PO HS [facility] Last Admin: 10/03/18 22:18 Dose: 1 mg Amitriptyline HCl (Elavil -) 25 mg PO HS [facility] Last Admin: 10/03/18 22:18 Dose: 25 mg Dexamethasone (Decadron -) 2 mg PO DAILY [facility] Last Admin: 10/03/18 09:51 Dose: 2 mg Gabapentin (Neurontin -) 300 mg PO TID [facility] Last Admin: 10/04/18 06:36 Dose: 300 mg Vancomycin HCl (Vancomycin (Pre-Docked)) 1,000 mg in 250 mls @ 166.667 mls/hr IVPB Q12H [facility]; Protocol Last Admin: 10/04/18 01:48 Dose: 166.667 mls/hr Piperacillin Sod/Tazobactam (Sod 4.5 gm/ Dextrose) 100 mls @ 200 mls/hr IVPB Q8H-IV [facility]; Protocol Last Admin: 10/04/18 01:49 Dose: 200 mls/hr Metoprolol Succinate (Toprol Xl -) 25 mg PO DAILY [facility] Last Admin: 10/03/18 09:51 Dose: 25 mg Morphine Sulfate (Morphine Sulfate) 4 mg IVPUSH Q4H PRN PRN Reason: PAIN LEVEL 6-10 Last Admin: 10/03/18 12:53 Dose: 4 mg Morphine Sulfate (Ms Contin -) 15 mg PO BID [facility] Last Admin: 10/03/18 22:17 Dose: 15 mg Ranitidine HCl (Zantac -) 150 mg PO BID [facility] Last Admin: 10/03/18 22:18 Dose: 150 mg CBC, BMP 10/04/18 06:05 10/04/18 06:05 x ray-- -ve for acute pathology uric acid -- Normal. Physical Exam Constitutional: Yes: No Distress, Calm and comfortable Eyes: Yes: Conjunctiva Clear Neck: Yes: Supple. no jvd Cardiovascular: Yes: Regular Rate and Rhythm Respiratory: Yes: CTA Bilaterally Gastrointestinal: Yes: Soft Edema: No Neurological: Yes: Alert Psychiatric: Yes: Alert knees -- mild swelling left> right slight warmth- no reddness - ....Imaging Chest X-ray: Report Reviewed Ultrasound: Report Reviewed Assessment/Plan Better Strep bactremia Abx per i/d-- discussed with Dr. Rodriguez yesterday Oncology following on steroids echo will follow Pt is DNR/DI Problem List - Problems (1) Fever Code(s): R50.9 - FEVER, UNSPECIFIED Qualifiers: Fever type: unspecified Qualified Code(s): R50.9 - Fever, unspecified (2) Metastatic breast cancer Code(s): C50.919 - MALIGNANT NEOPLASM OF UNSP SITE OF UNSPECIFIED FEMALE BREAST (3) Pancytopenia Code(s): D61.818 - OTHER PANCYTOPENIA (4) Neutropenic sepsis Code(s): A41.9 - SEPSIS, UNSPECIFIED ORGANISM; D70.9 - NEUTROPENIA, UNSPECIFIED (5) Sepsis Code(s): A41.9 - SEPSIS, UNSPECIFIED ORGANISM
[2018-10-04] MEDS: DEXAMETHASONE 4 MG TABLET (FP) PO SCH (09:52)
[2018-10-04] MEDS: morphine SO4 SUSTAINED ACTING 15 MG TABLET.SA PO SCH ×2 (09:54→22:01)
[2018-10-04] MEDS: metoPROLOL SUCCINATE 25 MG TAB.SR.24H (FP) PO SCH (09:54)
[2018-10-04] MEDS: RANITIDINE HCL 150 MG TABLET (FP) PO SCH ×2 (09:56→22:01)
[2018-10-04] MEDS ORDERED: morphine SULFATE 4 MG/ML VIAL IVPUSH PRN (11:20)
[2018-10-04 12:01] LABS: ANISOCYTOSIS 2+; MACROCYTOSIS 0; OVALOCYTE 1+; PLATELET ESTIMATE DECREASED; TEAR DROP CELLS 1+
--- NOTE | 2018-10-04 13:26 | ECHO ---
Name: FERNANDEZ SHELLEY ROSALIO Exam:Adult Echocardiogram Study Date: 10/04/2018 08:16 AM Age: 68 yrs Reason For Study: bacteremia Height: 63 in Weight: 143 lb BSA: 1.7 m2 MMode/2D Measurements & Calculations IVSd: 1.1 cm Ao root diam: 2.9 cm LVIDd: 4.0 cm LA dimension: 3.2 cm LVIDs: 2.5 cm LVPWd: 0.94 cm EDV(Teich): 68.2 ml LVOT diam: 2.0 cm ESV(Teich): 21.9 ml Doppler Measurements & Calculations MV E max ely: 72.3 cm/sec Ao V2 max: 188.8 cm/sec MV A max ely: 82.9 cm/sec Ao max P.3 mmHg MV E/A: 0.87 AI P1/2t: 625.1 msec MV dec time: 0.25 sec CASSIDY(V,D): 2.1 cm2 AI max ely: 385.1 cm/sec LV V1 max P.0 mmHg AI max P.3 mmHg LV V1 max: 131.9 cm/sec AI dec slope: 180.4 cm/sec2 MR max ely: 403.9 cm/sec TR max ely: 278.8 cm/sec MR max P.4 mmHg TR max P.1 mmHg PA V2 max: 124.9 cm/sec PI Vmax: 153.4 cm/sec PA max P.2 mmHg Procedure A complete two-dimensional transthoracic echocardiogram was performed (2D, M-mode, Doppler and color flow Doppler). Left Ventricle The left ventricle is normal in size. Left ventricular systolic function is normal. Ejection Fraction = 65- 70%. No regional wall motion abnormalities noted. Right Ventricle The right ventricle is normal size. The right ventricular systolic function is normal. Atria The left atrial size is normal. Right atrial size is normal. Mitral Valve There is mild mitral annular calcification. There is mild mitral regurgitation. Tricuspid Valve The tricuspid valve is normal in structure and function. There is mild tricuspid regurgitation. Pulmo nary artery systolic pressure is at least 37 mmHg assuming RA pressure of 3 mmHg. Aortic Valve There is mild aortic sclerosis.;. Mild aortic regurgitation. Pulmonic Valve The pulmonic valve is not well visualized. Mild pulmonic valvular regurgitation. Great Vessels The aortic root is normal size. Pericardium/Pleura There is no pericardial effusion. Interpretation Summary The left ventricle is normal in size. Left ventricular systolic function is normal. No regional wall motion abnormalities noted. Ejection Fraction = 65-70%. The right ventricular systolic function is normal. The left atrial size is normal. Right atrial size is normal. There is mild mitral annular calcification. There is mild mitral regurgitation. There is mild tricuspid regurgitation. Pulmonary artery systolic pressure is at least 37 mmHg assuming RA pressure of 3 mmHg There is mild aortic sclerosis.; Mild aortic regurgitation. Mild pulmonic valvular regurgitation. There is no pericardial effusion. When compared to study dated 02/10/18, no significant changes Cristian Wong MD 10/04/2018 01:25 PM
--- NOTE | 2018-10-04 15:17 | PN ---
Progress Note, Physician History of Present Illness: Pt seen and examined at bedside. She feels that appetite is improving. - Current Medication List Current Medications: Active Medications Acetaminophen (Ofirmev Injection -) 1,000 mg IVPB Q6H PRN PRN Reason: FEVER Last Admin: 10/02/18 14:31 Dose: 1,000 mg Alprazolam (Xanax -) 1 mg PO HS [facility] Last Admin: 10/03/18 22:18 Dose: 1 mg Amitriptyline HCl (Elavil -) 25 mg PO HS [facility] Last Admin: 10/03/18 22:18 Dose: 25 mg Dexamethasone (Decadron -) 2 mg PO DAILY [facility] Last Admin: 10/04/18 09:52 Dose: 2 mg Gabapentin (Neurontin -) 300 mg PO TID [facility] Last Admin: 10/04/18 14:19 Dose: 300 mg Piperacillin Sod/Tazobactam (Sod 4.5 gm/ Dextrose) 100 mls @ 200 mls/hr IVPB Q8H-IV [facility]; Protocol Last Admin: 10/04/18 09:57 Dose: 200 mls/hr Metoprolol Succinate (Toprol Xl -) 25 mg PO DAILY [facility] Last Admin: 10/04/18 09:54 Dose: 25 mg Morphine Sulfate (Ms Contin -) 15 mg PO BID [facility] Last Admin: 10/04/18 09:54 Dose: 15 mg Morphine Sulfate (Morphine Sulfate) 4 mg IVPUSH Q4H PRN PRN Reason: PAIN LEVEL 6-10 Ranitidine HCl (Zantac -) 150 mg PO BID [facility] Last Admin: 10/04/18 09:56 Dose: 150 mg - Objective Vital Signs: Vital Signs Temperature 98.6 F 10/04/18 13:43 Pulse Rate 86 10/04/18 13:43 Respiratory Rate 20 10/04/18 13:43 Blood Pressure 117/63 10/04/18 13:43 O2 Sat by Pulse Oximetry (%) 100 10/04/18 09:00 Constitutional: Yes: Calm Eyes: Yes: Conjunctiva Clear HENT: Yes: Atraumatic Cardiovascular: Yes: S1, S2 Respiratory: Yes: CTA Bilaterally Gastrointestinal: Yes: Soft Genitourinary: Yes: WNL Musculoskeletal: Yes: WNL Edema: Yes Edema: LLE: Trace, RLE: Trace Neurological: Yes: Oriented Psychiatric: Yes: Oriented Labs: CBC, BMP 10/04/18 06:05 10/04/18 06:05 INR, PTT INR 1.23 (0.83-1.09) H 10/02/18 00:01 Assessment/Plan Current Medications Generic Name Dose Route Start Last Admin Trade Name Freq PRN Reason Stop Dose Admin Acetaminophen 1,000 mg 10/02/18 04:47 10/02/18 14:31 Ofirmev Injection - IVPB 1,000 mg Q6H PRN Administration FEVER Alprazolam 1 mg 10/02/18 22:00 10/03/18 22:18 Xanax - PO 1 mg HS [facility] Administration Amitriptyline HCl 25 mg 10/02/18 22:00 10/03/18 22:18 Elavil - PO 25 mg HS [facility] Administration Dexamethasone 2 mg 10/02/18 14:45 10/04/18 09:52 Decadron - PO 2 mg DAILY [facility] Administration Gabapentin 300 mg 10/02/18 06:00 10/04/18 14:19 Neurontin - PO 300 mg TID [facility] Administration Piperacillin Sod/Tazobactam 100 mls @ 200 mls/hr 10/03/18 18:00 10/04/18 09: 57 Sod 4.5 gm/ Dextrose IVPB 200 mls/hr Q8H-IV [facility] Administration Protocol Metoprolol Succinate 25 mg 10/02/18 10:00 10/04/18 09:54 Toprol Xl - PO 25 mg DAILY [facility] Administration Morphine Sulfate 15 mg 10/02/18 10:00 10/04/18 09:54 Ms Contin - PO 15 mg BID [facility] Administration Morphine Sulfate 4 mg 10/04/18 11:20 Morphine Sulfate IVPUSH Q4H PRN PAIN LEVEL 6-10 Ranitidine HCl 150 mg 10/02/18 02:45 10/04/18 09:56 Zantac - PO 150 mg BID [facility] Administration Impression 1. hyponatremia 2. htn 3. pancytopenia 4. breast cancer Plan - cont to monitor sodium - overall sodium is improving - encourage po intake - restrict free water, discussed with patient - repeat labs in am
--- NOTE | 2018-10-04 15:43 | PN.GI ---
GI Progress Note Subjective: Pt seen/examined at bedside, feeling better, tolerating po. Denies abdominal pain or n/v. Denies further episodes of rectal bleeding, no bms today. - Objective Vital Signs: Vital Signs Temperature 98.6 F 10/04/18 13:43 Pulse Rate 86 10/04/18 13:43 Respiratory Rate 20 10/04/18 13:43 Blood Pressure 117/63 10/04/18 13:43 O2 Sat by Pulse Oximetry (%) 100 10/04/18 09:00 Constitutional: Well Nourished, No Distress Cardiovascular: Yes: WNL, Regular Rate and Rhythm Respiratory: Yes: WNL, Regular, CTA Bilaterally ...Palpate: Yes: Other (Abd soft, nt, nd) Labs: CBC, BMP 10/04/18 06:05 10/04/18 06:05 INR, PTT INR 1.23 (0.83-1.09) H 10/02/18 00:01 Problem List - Problems (1) Rectal bleeding Assessment/Plan: 68yo female h/o metastatic breast ca s/p chemotherapy with neutropenic fever and episode of rectal bleeding. Hb stabilized, no further bleeding reported. Last colonoscopy 2 years ago in [place], reportedly normal. Suspect outlet/ hemorrhoidal bleed however other etiologies need to be excluded. -Recommend continue to monitor Hb and for further bleeding -Miralax daily for constipation -Recommend colonoscopy once further optimized, hematological parameters/ electrolytes normalized and prior to discharge Code(s): K62.5 - HEMORRHAGE OF ANUS AND RECTUM
[2018-10-04] MEDS: POLYETHYLENE GLYCOL 3350 119 GM BTL PO SCH ×3 (15:55→22:07)
--- NOTE | 2018-10-04 16:31 | PN ---
Progress Note (short form) - Note Progress Note: feels well no further fevers or chills no BM s/p blood transfusion unable to ambulate has pain behind the left knee c/p knee and leg feels tight Vital Signs Period Temp Pulse Resp BP Sys/Nuñez Pulse Ox Last 24 Hr 97.7 F-98.6 F 70-86 18-20 93-117/55-63 100-100 cor-rrr lungs decreased bs at bases abd soft,nt ext +left knee effusion, no erythema CBC, BMP 10/04/18 06:05 10/04/18 06:05 Microbiology 10/02/18 00:01 Blood - Peripheral Venous Blood Culture - Final Strep Agalactiae Group B 10/02/18 00:01 Blood - Peripheral Venous Blood Culture - Final Strep Agalactiae Group B 10/03/18 11:45 Blood - Peripheral Venous Blood Culture - Preliminary NO GROWTH OBTAINED AFTER 24 HOURS, INCUBATION TO CONTINUE FOR 4 DAYS. 10/03/18 11:45 Blood - Peripheral Venous Blood Culture - Preliminary NO GROWTH OBTAINED AFTER 24 HOURS, INCUBATION TO CONTINUE FOR 4 DAYS. 10/02/18 02:00 Urine - Urine Clean Catch Urine Culture - Final a/p bacteremia- group b strep ?source, no signs of cellulitis, f/u urine culture repeat blood cultures today echo switch to rocephin MRI of the left knee rheumatology to see neutropenia resolved-anc 2.1 history of metastatic breast cancer d/w family at bedside d/w oncology Problem List - Problems (1) Neutropenic fever Code(s): D70.9 - NEUTROPENIA, UNSPECIFIED; R50.81 - FEVER PRESENTING WITH CONDITIONS CLASSIFIED ELSEWHERE (2) Pancytopenia Code(s): D61.818 - OTHER PANCYTOPENIA (3) Rectal bleeding Code(s): K62.5 - HEMORRHAGE OF ANUS AND RECTUM
--- NOTE | 2018-10-04 20:24 | PN ---
Progress Note (short form) - Note Progress Note: Patient seen and examined Left knee pain Last Vital Signs Temp Pulse Resp BP Pulse Ox 98.6 F 86 20 117/63 100 10/04/18 13:43 10/04/18 13:43 10/04/18 13:43 10/04/18 13:43 10/04/18 09:00 Cor: RSR, No murmurs, No gallops Lungs: Clear to P&A Abd: Soft, Normal bowel sounds, No organomegaly Ext:No significant edema Labs/Meds reviewed A/P 68F w/ ER/KS positive, 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 Found to have strep agalactiae bacteremia. On vanco/zosyn. Afebrile >24 hours. Repeat blood cultures pending. Responded well to PRBC with no further bloody BMs. ANC normal today. C/w dexamethasone 2 mg daily Pelvic vein doppler for eval of LLE swelling also neg Neuropenia resolved To f/u MRI left knee consult rheumatology discussed with ID team
[2018-10-04] MEDS: ALPRAZolam 0.25 MG TABLET PO SCH (22:01)
[2018-10-04] MEDS: AMITRIPTYLINE HCL 25 MG TABLET (FP) PO SCH (22:02)
[2018-10-05] MEDS ORDERED: DEXTROSE 5%-WATER 100 ML IVPB ONE ×3 (01:11→09:46)
[2018-10-05] MEDS ORDERED: PIPERACILLIN/TAZOBACTAM 4.5 GM VIAL IVPB ONE ×2 (01:11→08:48)
[2018-10-05] MEDS: PIPERACILLIN/TAZOB 4.5 GM 4.5 GM in DEXTROSE 5%-WATER 100 ML IVPB SCH (02:44)
[2018-10-05] MEDS: GABAPENTIN 300 MG CAPSULE (FP) PO SCH ×3 (05:44→21:39)
--- NOTE | 2018-10-05 08:54 | CONSULT ---
Consult Consult Specialty:: Rheumatology - History of Present Illness History of Present Illness: 68 y/o female with h/o metastatic breast cancer (multiple mets to bone, just finished radiation, chemo every Thursday with last treatment this week) admitted with fever and generalized bodily pain. The patient reports she has a one month history of pain in the left knee. On she had progression of pain and swelling in the left knee with difficulty in walking. She also describes swelling in the left leg. Three days later she developed pain in the right knee, not as significant that improved since admission. On admission WBC was 1.7, N: 1.4 and yesterday 2.9 and N: 2.8. Blood cultures were positive for Strep. Agalactiae broup B. Creatinine 0.9 and uric acid 3.2 , Alk P 258. X rays of the knees (not weight bearing) were normal. The patient had fever only on the day of admission. - History Source History Provided By: Patient, Medical Record - Past Medical History Cardio/Vascular: Yes: HTN Gastrointestinal: Yes: GERD Psych: Yes: Anxiety - Past Surgical History Past Surgical History: Yes: Cholecystectomy, Hysterectomy - Alcohol/Substance Use Hx Alcohol Use: No History of Substance Use: reports: None - Smoking History Smoking history: Never smoked Have you smoked in the past 12 months: No - Social History Usual Living Arrangement: With Child ADL: Independent History of Recent Travel: No Home Medications - Allergies Allergies/Adverse Reactions: Allergies Allergy/AdvReac Type Severity Reaction Status Date / Time No Known Drug Allergies Allergy Verified 10/01/18 23:17 - Home Medications Home Medications: Ambulatory Orders Alprazolam [Xanax] 1 mg PO HS 05/30/17 Gabapentin 300 mg PO TID 05/30/17 Lisinopril/Hydrochlorothiazide [Lisinopril-Hctz 10-12.5 mg Tab] 1 each PO DAILY 05/30/17 Metoprolol Succinate [Toprol Xl] 25 mg PO DAILY 05/30/17 Tramadol HCl 50 mg PO PRN 05/30/17 Oxycodone HCl/Acetaminophen [Oxycodon-Acetaminophen 7.5-325] 1 each PO Q4H PRN 02/05/18 Famotidine [Pepcid] 20 mg PO BID #60 tablet 02/21/18 Lactobacillus Acidophilus [Bacid -] 1 tab PO DAILY #30 tab 02/21/18 Amitriptyline HCl [Elavil -] 25 mg PO HS #30 tablet 05/13/18 Family Disease History - Family Disease History Family Disease History: CA: Brother, Sister Review of Systems - Review of Systems Constitutional: reports: Malaise Eyes: reports: No Symptoms HENT: reports: No Symptoms Neck: reports: No Symptoms Cardiovascular: reports: No Symptoms Respiratory: reports: No Symptoms Gastrointestinal: reports: No Symptoms Physical Exam Vital Signs: Vital Signs Temperature 98.3 F 10/05/18 06:00 Pulse Rate 74 10/05/18 06:00 Respiratory Rate 20 10/05/18 06:00 Blood Pressure 109/66 10/05/18 06:00 O2 Sat by Pulse Oximetry (%) 100 10/04/18 21:00 Constitutional: Yes: Mild Distress Eyes: Yes: WNL HENT: Yes: WNL Neck: Yes: WNL Cardiovascular: Yes: WNL Respiratory: Yes: WNL Gastrointestinal: Yes: WNL Musculoskeletal: Yes: Other (Tenderness and swelling in the left knee.) Labs: CBC, BMP 10/04/18 06:05 10/04/18 06:05 Laboratory Tests 10/02/18 10/02/18 10/03/18 02:00 06:36 06:35 Uric Acid 3.6 Calcium Total Bilirubin AST ALT Alkaline Phosphatase Total Protein TSH 0.69 Urine Appearance Cloudy Urine pH 5.5 Ur Specific Keo 1.022 Urine Protein Trace Urine Glucose (UA) Trace Urine Ketones Trace H Urine Blood Negative Urine Nitrite Negative Urine Bilirubin 1+ H Urine Urobilinogen 1.0 Ur Leukocyte Esterase 1+ H Urine WBC (Auto) 9 Urine RBC (Auto) 3 Urine Casts (Auto) 17 10/04/18 06:05 Uric Acid Calcium 7.5 L Total Bilirubin 0.9 D AST 16 ALT 35 Alkaline Phosphatase 258 H Total Protein 5.1 L TSH Urine Appearance Urine pH Ur Specific Keo Urine Protein Urine Glucose (UA) Urine Ketones Urine Blood Urine Nitrite Urine Bilirubin Urine Urobilinogen Ur Leukocyte Esterase Urine WBC (Auto) Urine RBC (Auto) Urine Casts (Auto) Problem List - Problems (1) Swelling of left knee joint Assessment/Plan: Rule out septic arthritis in the left knee. PROCEDURE. Under aseptic [id number] I aspirated the left knee, obtained 26 ml of yellowish fluid. Fluid sent for cell count, crystal analysis and culture. Continue same medications. Code(s): M25.462 - EFFUSION, LEFT KNEE
[2018-10-05] MEDS: metoPROLOL SUCCINATE 25 MG TAB.SR.24H (FP) PO SCH (09:31)
[2018-10-05] MEDS: RANITIDINE HCL 150 MG TABLET (FP) PO SCH ×2 (09:31→21:39)
[2018-10-05] MEDS: morphine SO4 SUSTAINED ACTING 15 MG TABLET.SA PO SCH ×2 (09:31→21:39)
[2018-10-05] MEDS: DEXAMETHASONE 4 MG TABLET (FP) PO SCH (09:33)
[2018-10-05] MEDS: POLYETHYLENE GLYCOL 3350 119 GM BTL PO SCH ×2 (09:35→21:39)
[2018-10-05] MEDS: CEFTRIAXONE 2 GM in DEXTROSE 5%-WATER 100 ML IVPB SCH (09:51)
--- NOTE | 2018-10-05 11:49 | PN ---
Progress Note, Physician History of Present Illness: Pt seen and examined at bedside. She is awake and alert. She feels that her PO intake is improved. - Current Medication List Current Medications: Active Medications Acetaminophen (Ofirmev Injection -) 1,000 mg IVPB Q6H PRN PRN Reason: FEVER Last Admin: 10/02/18 14:31 Dose: 1,000 mg Alprazolam (Xanax -) 1 mg PO HS [facility] Last Admin: 10/04/18 22:01 Dose: 1 mg Amitriptyline HCl (Elavil -) 25 mg PO HS [facility] Last Admin: 10/04/18 22:02 Dose: 25 mg Dexamethasone (Decadron -) 2 mg PO DAILY [facility] Last Admin: 10/05/18 09:33 Dose: 2 mg Gabapentin (Neurontin -) 300 mg PO TID [facility] Last Admin: 10/05/18 05:44 Dose: 300 mg Ceftriaxone Sodium 2 gm/ (Dextrose) 100 mls @ 200 mls/hr IVPB DAILY [facility]; Protocol Last Admin: 10/05/18 09:51 Dose: 200 mls/hr Metoprolol Succinate (Toprol Xl -) 25 mg PO DAILY [facility] Last Admin: 10/05/18 09:31 Dose: 25 mg Morphine Sulfate (Ms Contin -) 15 mg PO BID [facility] Last Admin: 10/05/18 09:31 Dose: 15 mg Morphine Sulfate (Morphine Sulfate) 4 mg IVPUSH Q4H PRN PRN Reason: PAIN LEVEL 6-10 Polyethylene Glycol (Miralax (For Daily Use) -) 17 gm PO BID [facility] Last Admin: 10/05/18 09:35 Dose: 17 gm Ranitidine HCl (Zantac -) 150 mg PO BID [facility] Last Admin: 10/05/18 09:31 Dose: 150 mg - Objective Vital Signs: Vital Signs Temperature 97.6 F 10/05/18 09:00 Pulse Rate 77 10/05/18 09:00 Respiratory Rate 18 10/05/18 09:00 Blood Pressure 114/67 10/05/18 09:00 O2 Sat by Pulse Oximetry (%) 100 10/05/18 09:00 Constitutional: Yes: Calm Eyes: Yes: Conjunctiva Clear HENT: Yes: Atraumatic Neck: Yes: Supple Cardiovascular: Yes: S1, S2 Respiratory: Yes: CTA Bilaterally Gastrointestinal: Yes: WNL, Soft Genitourinary: Yes: WNL Musculoskeletal: Yes: WNL Edema: Yes Edema: LLE: Trace, RLE: Trace Neurological: Yes: Oriented Psychiatric: Yes: Oriented Labs: CBC, BMP 10/04/18 06:05 10/04/18 06:05 INR, PTT INR 1.23 (0.83-1.09) H 10/02/18 00:01 Assessment/Plan Current Medications Generic Name Dose Route Start Last Admin Trade Name Amor PRN Reason Stop Dose Admin Acetaminophen 1,000 mg 10/02/18 04:47 10/02/18 14:31 Ofirmev Injection - IVPB 1,000 mg Q6H PRN Administration FEVER Alprazolam 1 mg 10/02/18 22:00 10/04/18 22:01 Xanax - PO 1 mg HS CARTER Administration Amitriptyline HCl 25 mg 10/02/18 22:00 10/04/18 22:02 Elavil - PO 25 mg HS [facility]TER Administration Dexamethasone 2 mg 10/02/18 14:45 10/05/18 09:33 Decadron - PO 2 mg DAILY [facility] Administration Gabapentin 300 mg 10/02/18 06:00 10/05/18 05:44 Neurontin - PO 300 mg TID [facility]TER Administration Ceftriaxone Sodium 2 gm/ 100 mls @ 200 mls/hr 10/05/18 10:00 10/05/18 09:51 Dextrose IVPB 200 mls/hr DAILY [facility] Administration Protocol Metoprolol Succinate 25 mg 10/02/18 10:00 10/05/18 09:31 Toprol Xl - PO 25 mg DAILY [facility] Administration Morphine Sulfate 15 mg 10/02/18 10:00 10/05/18 09:31 Ms Contin - PO 15 mg BID [facility]TER Administration Morphine Sulfate 4 mg 10/04/18 11:20 Morphine Sulfate IVPUSH Q4H PRN PAIN LEVEL 6-10 Polyethylene Glycol 17 gm 10/04/18 15:45 10/05/18 09:35 Miralax (For Daily Use) - PO 17 gm BID [facility]TER Administration Ranitidine HCl 150 mg 10/02/18 02:45 10/05/18 09:31 Zantac - PO 150 mg BID [facility]TER Administration Impression 1. hyponatremia 2. htn 3. pancytopenia 4. breast cancer Plan - encourage po intake - asked pt to restrict free water - follow up arthrocentesis results - will give a salt tab today - repeat labs in am
[2018-10-05] MEDS ORDERED: SODIUM CHLORIDE 1 GM TABLET PO ONE (12:00)
[2018-10-05 13:29] LABS: SYNOVIAL FLUID SOURCE SYNOVIAL
[2018-10-05 13:31] LABS: SYNOVIAL FLUID RBC 4854 /mm3
[2018-10-05 14:03] LABS: CRYSTALS,SYNOVIAL FLUID NEGATIVE
[2018-10-05 15:22] LABS: SYNOVIAL FLUID LYMPHOCYTES 3 %; SYNOVIAL FLUID MONOCYTES 7 %; SYNOVIAL FLUID NEUTROPHILS 90 %
--- NOTE | 2018-10-05 16:02 | PN ---
Progress Note (short form) - Note Progress Note: Patient seen and examined Evets noted Strep in blood S/P left knee effusion and tap Last Vital Signs Temp Pulse Resp BP Pulse Ox 98.4 F 82 20 109/60 100 10/05/18 13:47 10/05/18 13:47 10/05/18 13:47 10/05/18 13:47 10/05/18 09:00 HEENT: GLADYS, EOM Intact Oropharynx: No thrush, No mucositis Neck: decrease ROM Nodes: Without adenopathy Breasts: Without masses Cor: RSR, No murmurs, No gallops Lungs: Clear to P&A Abd: Soft, Normal bowel sounds, No organomegaly Ext:No significant edema Skin: No rashes, Integument intact Left knee swelling LLE swelling CBC, BMP 10/04/18 06:05 10/04/18 06:05 Current Medications Generic Name Dose Route Start Last Admin Trade Name Freq PRN Reason Stop Dose Admin Acetaminophen 1,000 mg 10/02/18 04:47 10/02/18 14:31 Ofirmev Injection - IVPB 1,000 mg Q6H PRN Administration FEVER Alprazolam 1 mg 10/02/18 22:00 10/04/18 22:01 Xanax - PO 1 mg HS CARTER Administration Amitriptyline HCl 25 mg 10/02/18 22:00 10/04/18 22:02 Elavil - PO 25 mg HS [facility] Administration Dexamethasone 2 mg 10/02/18 14:45 10/05/18 09:33 Decadron - PO 2 mg DAILY [facility] Administration Gabapentin 300 mg 10/02/18 06:00 10/05/18 14:04 Neurontin - PO 300 mg TID [facility] Administration Ceftriaxone Sodium 2 gm/ 100 mls @ 200 mls/hr 10/05/18 10:00 10/05/18 09:51 Dextrose IVPB 200 mls/hr DAILY [facility] Administration Protocol Metoprolol Succinate 25 mg 10/02/18 10:00 10/05/18 09:31 Toprol Xl - PO 25 mg DAILY [facility] Administration Morphine Sulfate 15 mg 10/02/18 10:00 10/05/18 09:31 Ms Contin - PO 15 mg BID [facility] Administration Morphine Sulfate 4 mg 10/04/18 11:20 Morphine Sulfate IVPUSH Q4H PRN PAIN LEVEL 6-10 Polyethylene Glycol 17 gm 06/17/19 15:45 10/05/18 09:35 Miralax (For Daily Use) - PO 17 gm BID [facility] Administration Ranitidine HCl 150 mg 10/02/18 02:45 10/05/18 09:31 Zantac - PO 150 mg BID [facility] Administration Impression Metastatic breast cancer Bone mets Chemotherapy with taxol weekly s/p multiple lara of RT (recently completed RT to C-spine) Strep bacteremia Left knee effusion Pancytopenia secondary to RT/chemotherapy Unfortunately initially unable to get blood return from port so ? of port infection is not resolved . To assess strep clearance from blood which may help in clarification . Await analysis of joint fluid .
--- NOTE | 2018-10-05 16:23 | PN.GI ---
GI Progress Note Subjective: Ms. Julianna Escobar describes rectal bleeding only "after not having a bowel movement for 2 days and straining". No abdominal pain. + neck pain. + left knee pain - Objective Vital Signs: Vital Signs Temperature 98.4 F 10/05/18 13:47 Pulse Rate 82 10/05/18 13:47 Respiratory Rate 20 10/05/18 13:47 Blood Pressure 109/60 10/05/18 13:47 O2 Sat by Pulse Oximetry (%) 100 10/05/18 09:00 Constitutional: Calm Eyes: No: Sclera Icterus Cardiovascular: Yes: Regular Rate and Rhythm Respiratory: Yes: CTA Bilaterally Gastrointestinal Inspection: No: Distention ...Auscultate: Yes: Normoactive Bowel Sounds ...Palpate: Yes: Soft. No: Hepatomegaly, Splenomegaly, Tenderness Neurological: Yes: Alert Labs: CBC, BMP 10/04/18 06:05 10/04/18 06:05 INR, PTT INR 1.23 (0.83-1.09) H 10/02/18 00:01 Hepatic Panel Total Bilirubin 0.9 mg/dL (0.2-1) D 10/04/18 06:05 AST 16 U/L (15-37) 10/04/18 06:05 ALT 35 U/L (13-61) 10/04/18 06:05 Alkaline Phosphatase 258 U/L (45-117) H 10/04/18 06:05 Albumin 2.4 g/dl (3.4-5.0) L 10/04/18 06:05 Problem List - Problems (1) Rectal bleeding Assessment/Plan: Painless bright red rectal bleeding associated with strained BM's. suspect distal colon source such as from internal hemorrhoids. Strained BM's likely precipitated by opiate analgesia Agree with miralax 17g PO BID Would observe for now. If continued significant bleeding, prior to colonoscopy , would need further input regarding extent of metastatic C-spine disease and clearance from a neurosurgical perspective. Concern would be potential need to be manipulation of the neck during a procedure such as extension, need for intubation, jaw thrust with supplemental O2, etc. Code(s): K62.5 - HEMORRHAGE OF ANUS AND RECTUM
--- NOTE | 2018-10-05 17:48 | PN ---
Progress Note (short form) - Note Progress Note: feels well no further fevers or chills no BM s/p blood transfusion s/p arthrocentesis still with tightness in her knee Vital Signs Period Temp Pulse Resp BP Sys/Nuñez Pulse Ox Last 24 Hr 97.6 F-98.5 F 74-85 18-20 102-123/60-69 100-100 cor-rrr lungs clear abd soft,nt ext some swelling of the knee no erythema CBC, BMP 10/04/18 06:05 10/04/18 06:05 Microbiology 10/05/18 08:50 Synovial Fluid - Knee Gram Stain - Final 10/03/18 11:45 Blood - Peripheral Venous Blood Culture - Preliminary NO GROWTH OBTAINED AFTER 48 HOURS, INCUBATION TO CONTINUE FOR 3 DAYS. 10/03/18 11:45 Blood - Peripheral Venous Blood Culture - Preliminary NO GROWTH OBTAINED AFTER 48 HOURS, INCUBATION TO CONTINUE FOR 3 DAYS. 10/02/18 00:01 Blood - Peripheral Venous Blood Culture - Final Strep Agalactiae Group B 10/02/18 00:01 Blood - Peripheral Venous Blood Culture - Final Strep Agalactiae Group B 10/02/18 02:00 Urine - Urine Clean Catch Urine Culture - Final mri- with suprapatellar effusion, +bony metastatic disease a/p bacteremia- group b strep ?source, no signs of cellulitis, f/u urine culture repeat blood cultures today echo wnl conitnue rocephin plan 4 weeks of antibioitics neutropenia resolved-anc 2.1 history of metastatic breast cancer d/w family at bedside d/w dr duque Problem List - Problems (1) Neutropenic fever Code(s): D70.9 - NEUTROPENIA, UNSPECIFIED; R50.81 - FEVER PRESENTING WITH CONDITIONS CLASSIFIED ELSEWHERE (2) Pancytopenia Code(s): D61.818 - OTHER PANCYTOPENIA (3) Rectal bleeding Code(s): K62.5 - HEMORRHAGE OF ANUS AND RECTUM
[2018-10-05] MEDS: SUCRALFATE 1 GM/10 ML UNIT DOSE CUPS PO SCH ×2 (17:51→21:39)
--- NOTE | 2018-10-05 18:06 | PN ---
Progress Note (short form) - Note Progress Note: has pain in left knee s/p arthrocentesis blood in stools-- sometimes strains during a bm Vital Signs - 24 hr 10/04/18 10/04/18 10/05/18 21:00 22:00 06:00 Temperature 98.0 F 98.3 F Pulse Rate 85 74 Respiratory 20 20 Rate Blood Pressure 122/69 109/66 O2 Sat by Pulse 100 Oximetry (%) 10/05/18 10/05/18 10/05/18 09:00 13:47 17:30 Temperature 97.6 F 98.4 F 98.5 F Pulse Rate 77 82 80 Respiratory 18 20 18 Rate Blood Pressure 114/67 109/60 102/62 O2 Sat by Pulse 100 Oximetry (%) Current Medications Generic Name Dose Route Start Last Admin Trade Name Freq PRN Reason Stop Dose Admin Acetaminophen 1,000 mg 10/02/18 04:47 10/02/18 14:31 Ofirmev Injection - IVPB 1,000 mg Q6H PRN Administration FEVER Alprazolam 1 mg 10/02/18 22:00 10/04/18 22:01 Xanax - PO 1 mg HS CARTER Administration Amitriptyline HCl 25 mg 10/02/18 22:00 10/04/18 22:02 Elavil - PO 25 mg HS [facility] Administration Dexamethasone 2 mg 10/02/18 14:45 10/05/18 09:33 Decadron - PO 2 mg DAILY [facility] Administration Gabapentin 300 mg 10/02/18 06:00 10/05/18 14:04 Neurontin - PO 300 mg TID [facility] Administration Ceftriaxone Sodium 2 gm/ 100 mls @ 200 mls/hr 10/05/18 10:00 10/05/18 09:51 Dextrose IVPB 200 mls/hr DAILY [facility] Administration Protocol Metoprolol Succinate 25 mg 10/02/18 10:00 10/05/18 09:31 Toprol Xl - PO 25 mg DAILY [facility] Administration Morphine Sulfate 15 mg 10/02/18 10:00 10/05/18 09:31 Ms Contin - PO 15 mg BID [facility] Administration Morphine Sulfate 4 mg 10/04/18 11:20 Morphine Sulfate IVPUSH Q4H PRN PAIN LEVEL 6-10 Polyethylene Glycol 17 gm 10/04/18 15:45 10/05/18 09:35 Miralax (For Daily Use) - PO 17 gm BID [facility] Administration Ranitidine HCl 150 mg 10/02/18 02:45 10/05/18 09:31 Zantac - PO 150 mg BID [facility] Administration Sucralfate 1 gm 10/05/18 18:00 10/05/18 17:51 Carafate Oral Suspension - PO 1 gm QID [facility]TER Administration Laboratory Results - last 24 hr 10/02/18 10/05/18 00:01 08:50 Synovial Source Synovial Synovial WBC 45995 Synovial RBC 4854 Synovial Neutrophils 90 Synovial Lymphocytes 3 Synovial Monocytes 7 Synovial Histocytes No Result Required. Synovial Plasma Cells No Result Required. Synovial LE Cells No Result Required. Synovial Macrophages No Result Required. Synovial Other Cells No Result Required. Synovial Diff Comment No Result Required. Synovial Crystals Negative Blood Type A POSITIVE Antibody Screen Negative Antigen Identification Cancelled Crossmatch See Detail S1 S2 RRR Lungs clear Abd- soft, NT edema left leg, left knee warm+ PLAN s/p arthrocentesis iv antibiotics per ID pain control MRI left knee noted Problem List - Problems (1) Fever Code(s): R50.9 - FEVER, UNSPECIFIED Qualifiers: Fever type: unspecified Qualified Code(s): R50.9 - Fever, unspecified (2) Hyperbilirubinemia Code(s): E80.6 - OTHER DISORDERS OF BILIRUBIN METABOLISM (3) Hyponatremia Code(s): E87.1 - HYPO-OSMOLALITY AND HYPONATREMIA (4) Neutropenic fever Code(s): D70.9 - NEUTROPENIA, UNSPECIFIED; R50.81 - FEVER PRESENTING WITH CONDITIONS CLASSIFIED ELSEWHERE (5) Neutropenic sepsis Code(s): A41.9 - SEPSIS, UNSPECIFIED ORGANISM; D70.9 - NEUTROPENIA, UNSPECIFIED (6) Pancytopenia Code(s): D61.818 - OTHER PANCYTOPENIA (7) Rectal bleeding Code(s): K62.5 - HEMORRHAGE OF ANUS AND RECTUM (8) Systemic inflammatory response syndrome (SIRS) Code(s): R65.10 - SIRS OF NON-INFECTIOUS ORIGIN W/O ACUTE ORGAN DYSFUNCTION (9) Metastatic breast cancer Code(s): C50.919 - MALIGNANT NEOPLASM OF UNSP SITE OF UNSPECIFIED FEMALE BREAST
[2018-10-05] MEDS: ALPRAZolam 0.25 MG TABLET PO SCH (21:39)
[2018-10-05] MEDS: AMITRIPTYLINE HCL 25 MG TABLET (FP) PO SCH (21:39)
[2018-10-06] MEDS: GABAPENTIN 300 MG CAPSULE (FP) PO SCH ×3 (06:18→22:00)
[2018-10-06] MEDS ORDERED: DEXTROSE 5%-WATER 100 ML IVPB ONE (08:20)
[2018-10-06 08:54] LABS: BASO % 0.4 % (0-2.0); EOS % 0.1 % (0-4.5); HEMATOCRIT 25.3 % (32.4-45.2); HEMOGLOBIN 8.7 GM/dL (10.7-15.3); LYMPH % 18.6 % (8-40); MCH 29.7 pg (25.7-33.7); MCHC 34.6 g/dl (32.0-36.0); MEAN CELL VOLUME 85.8 fl (80-96); MEAN PLT VOLUME 7.2 fl (7.5-11.1); MONO % 13.4 % (3.8-10.2); NEUT % 67.5 % (42.8-82.8); PLATELET COUNT 121 K/MM3 (134-434); RBC 2.94 M/mm3 (3.60-5.2); RDW 17.6 % (11.6-15.6); WHITE BLOOD COUNT 3.3 K/mm3 (4.0-10.0)
[2018-10-06] MEDS: POLYETHYLENE GLYCOL 3350 119 GM BTL PO SCH ×2 (09:05→22:01)
[2018-10-06] MEDS: morphine SO4 SUSTAINED ACTING 15 MG TABLET.SA PO SCH ×2 (09:05→22:00)
[2018-10-06] MEDS: DEXAMETHASONE 4 MG TABLET (FP) PO SCH (09:06)
[2018-10-06] MEDS: SUCRALFATE 1 GM/10 ML UNIT DOSE CUPS PO SCH ×4 (09:06→22:00)
[2018-10-06] MEDS: CEFTRIAXONE 2 GM in DEXTROSE 5%-WATER 100 ML IVPB SCH (09:06)
[2018-10-06] MEDS: RANITIDINE HCL 150 MG TABLET (FP) PO SCH ×2 (09:09→22:01)
[2018-10-06] MEDS: metoPROLOL SUCCINATE 25 MG TAB.SR.24H (FP) PO SCH (09:09)
[2018-10-06 09:28] LABS: ALBUMIN 2.7 g/dl (3.4-5.0); BILIRUBIN,TOTAL 0.5 mg/dL (0.2-1); BLOOD UREA NITROGEN 14.9 mg/dL (7-18); CALCIUM 7.9 mg/dL (8.5-10.1); CREATININE 0.7 mg/dL (0.55-1.3); POTASSIUM 5.4 mmol/L (3.5-5.1); TOT PROT 5.4 g/dl (6.4-8.2)
[2018-10-06 11:12] LABS: ANISOCYTOSIS 0; MACROCYTOSIS 0; PLATELET ESTIMATE DECREASED
--- NOTE | 2018-10-06 12:22 | PN ---
Progress Note, Physician History of Present Illness: Pt seen and examined at bedside. She is awake and alert. - Current Medication List Current Medications: Active Medications Acetaminophen (Ofirmev Injection -) 1,000 mg IVPB Q6H PRN PRN Reason: FEVER Last Admin: 10/02/18 14:31 Dose: 1,000 mg Alprazolam (Xanax -) 1 mg PO HS [facility] Last Admin: 10/05/18 21:39 Dose: 1 mg Amitriptyline HCl (Elavil -) 25 mg PO HS [facility] Last Admin: 10/05/18 21:39 Dose: 25 mg Dexamethasone (Decadron -) 2 mg PO DAILY [facility] Last Admin: 10/06/18 09:06 Dose: 2 mg Gabapentin (Neurontin -) 300 mg PO TID [facility] Last Admin: 10/06/18 06:18 Dose: 300 mg Ceftriaxone Sodium 2 gm/ (Dextrose) 100 mls @ 200 mls/hr IVPB DAILY [facility]; Protocol Last Admin: 10/06/18 09:06 Dose: 200 mls/hr Metoprolol Succinate (Toprol Xl -) 25 mg PO DAILY [facility] Last Admin: 10/06/18 09:09 Dose: 25 mg Morphine Sulfate (Ms Contin -) 15 mg PO BID [facility] Last Admin: 10/06/18 09:05 Dose: 15 mg Morphine Sulfate (Morphine Sulfate) 4 mg IVPUSH Q4H PRN PRN Reason: PAIN LEVEL 6-10 Polyethylene Glycol (Miralax (For Daily Use) -) 17 gm PO BID [facility] Last Admin: 10/06/18 09:05 Dose: 17 gm Ranitidine HCl (Zantac -) 150 mg PO BID [facility] Last Admin: 10/06/18 09:09 Dose: 150 mg Sucralfate (Carafate Oral Suspension -) 1 gm PO QID [facility] Last Admin: 10/06/18 09:06 Dose: 1 gm - Objective Vital Signs: Vital Signs Temperature 98.5 F 10/06/18 05:00 Pulse Rate 84 10/06/18 05:00 Respiratory Rate 18 10/06/18 05:00 Blood Pressure 118/61 10/06/18 05:00 O2 Sat by Pulse Oximetry (%) 100 10/05/18 21:00 Constitutional: Yes: Calm Eyes: Yes: Conjunctiva Clear HENT: Yes: Atraumatic Neck: Yes: Supple Cardiovascular: Yes: S1, S2 Respiratory: Yes: CTA Bilaterally Gastrointestinal: Yes: Soft Genitourinary: Yes: WNL Musculoskeletal: Yes: WNL Edema: Yes Edema: LLE: Trace, RLE: Trace Neurological: Yes: Oriented Psychiatric: Yes: Oriented Labs: CBC, BMP 10/06/18 07:56 10/06/18 07:56 INR, PTT INR 1.23 (0.83-1.09) H 10/02/18 00:01 Problem List - Problems (1) Hyponatremia Code(s): E87.1 - HYPO-OSMOLALITY AND HYPONATREMIA Assessment/Plan Current Medications Generic Name Dose Route Start Last Admin Trade Name Freq PRN Reason Stop Dose Admin Acetaminophen 1,000 mg 10/02/18 04:47 10/02/18 14:31 Ofirmev Injection - IVPB 1,000 mg Q6H PRN Administration FEVER Alprazolam 1 mg 10/02/18 22:00 10/05/18 21:39 Xanax - PO 1 mg HS CARTER Administration Amitriptyline HCl 25 mg 10/02/18 22:00 10/05/18 21:39 Elavil - PO 25 mg HS [facility] Administration Dexamethasone 2 mg 10/02/18 14:45 10/06/18 09:06 Decadron - PO 2 mg DAILY [facility] Administration Gabapentin 300 mg 10/02/18 06:00 10/06/18 06:18 Neurontin - PO 300 mg TID [facility]TER Administration Ceftriaxone Sodium 2 gm/ 100 mls @ 200 mls/hr 10/05/18 10:00 10/06/18 09:06 Dextrose IVPB 200 mls/hr DAILY [facility] Administration Protocol Metoprolol Succinate 25 mg 10/02/18 10:00 10/06/18 09:09 Toprol Xl - PO 25 mg DAILY [facility] Administration Morphine Sulfate 15 mg 10/02/18 10:00 10/06/18 09:05 Ms Contin - PO 15 mg BID [facility] Administration Morphine Sulfate 4 mg 10/04/18 11:20 Morphine Sulfate IVPUSH Q4H PRN PAIN LEVEL 6-10 Polyethylene Glycol 17 gm 10/04/18 15:45 10/06/18 09:05 Miralax (For Daily Use) - PO 17 gm BID [facility]TER Administration Ranitidine HCl 150 mg 10/02/18 02:45 06/19/19 09:09 Zantac - PO 150 mg BID [facility]TER Administration Sucralfate 1 gm 10/05/18 18:00 10/06/18 09:06 Carafate Oral Suspension - PO 1 gm QID [facility]TER Administration Impression 1. hyponatremia 2. htn 3. pancytopenia 4. breast cancer 5. hyperkaelmia Plan - sodium is improved - potassium elevated - repeat bmp, give lokelma if potassium elevated - low potassium diet - asked pt to restrict free water - follow up arthrocentesis results
--- NOTE | 2018-10-06 12:40 | PN.GI ---
GI Progress Note Subjective: Pt seen/examined at bedside, reports mild knee pain s/p arthrocentesis, otherwise feels well, denies abdominal pain, n/v. Appetite good. Moving bowels some straining at times, no blood in stools. - Objective Vital Signs: Vital Signs Temperature 98.5 F 10/06/18 05:00 Pulse Rate 84 10/06/18 05:00 Respiratory Rate 18 10/06/18 05:00 Blood Pressure 118/61 10/06/18 05:00 O2 Sat by Pulse Oximetry (%) 100 10/05/18 21:00 Constitutional: Well Nourished, No Distress, Calm Cardiovascular: Yes: WNL, Regular Rate and Rhythm Respiratory: Yes: WNL, Regular, CTA Bilaterally Labs: CBC, BMP 10/06/18 07:56 10/06/18 07:56 INR, PTT INR 1.23 (0.83-1.09) H 10/02/18 00:01 Problem List - Problems (1) Rectal bleeding Assessment/Plan: 68yo female h/o metastatic breast ca s/p chemotherapy and radiation with neutropenic fever and episode of rectal bleeding. Hb stabilized though also likely multifactorial in setting of pancytopenia and likely secondary to chemotherapy. Last colonoscopy 2 years ago in [place], reportedly normal. Suspect outlet/hemorrhoidal bleed as episodes reported in setting of straining and mostly on toilet paper. -Continue to monitor Hb and for further bleeding -Avoid straining/constipation -Miralax daily -Follow up repeat cultures -While would recommend colonoscopy for further evaluation there is currently no urgent indication in absence of overt bleed and stable Hb, and the risks/ benefits need to be carefully weighed. As pt is being treated for infection and with concern for positioning/neck manipulation during a colonoscopy, can defer for now. If further overt bleeding with drop in Hb would re-evaluate at that time and determine timing accordingly. Code(s): K62.5 - HEMORRHAGE OF ANUS AND RECTUM
--- NOTE | 2018-10-06 13:56 | PN ---
Progress Note (short form) - Note Progress Note: has pain in left knee s/p arthrocentesis blood in stools-- no hard stools daughter at bedside Vital Signs - 24 hr 10/05/18 10/05/18 10/05/18 17:30 21:00 22:43 Temperature 98.5 F 98.0 F Pulse Rate 80 79 Respiratory 18 18 Rate Blood Pressure 102/62 113/75 O2 Sat by Pulse 100 Oximetry (%) 10/06/18 10/06/18 10/06/18 05:00 09:00 11:00 Temperature 98.5 F 98.2 F Pulse Rate 84 84 Respiratory 18 18 Rate Blood Pressure 118/61 105/60 O2 Sat by Pulse 98 Oximetry (%) Current Medications Generic Name Dose Route Start Last Admin Trade Name Freq PRN Reason Stop Dose Admin Acetaminophen 1,000 mg 10/02/18 04:47 10/02/18 14:31 Ofirmev Injection - IVPB 1,000 mg Q6H PRN Administration FEVER Alprazolam 1 mg 10/02/18 22:00 10/05/18 21:39 Xanax - PO 1 mg HS CARTER Administration Amitriptyline HCl 25 mg 10/02/18 22:00 10/05/18 21:39 Elavil - PO 25 mg HS CARTER Administration Dexamethasone 2 mg 10/02/18 14:45 10/06/18 09:06 Decadron - PO 2 mg DAILY CARTER Administration Gabapentin 300 mg 10/02/18 06:00 10/06/18 13:23 Neurontin - PO 300 mg TID CARTER Administration Ceftriaxone Sodium 2 gm/ 100 mls @ 200 mls/hr 10/05/18 10:00 10/06/18 09:06 Dextrose IVPB 200 mls/hr DAILY CARTER Administration Protocol Metoprolol Succinate 25 mg 10/02/18 10:00 10/06/18 09:09 Toprol Xl - PO 25 mg DAILY CARTER Administration Morphine Sulfate 15 mg 10/02/18 10:00 10/06/18 09:05 Ms Contin - PO 15 mg BID CARTER Administration Morphine Sulfate 4 mg 10/04/18 11:20 10/06/18 13:26 Morphine Sulfate IVPUSH 4 mg Q4H PRN Administration PAIN LEVEL 6-10 Polyethylene Glycol 17 gm 10/04/18 15:45 10/06/18 09:05 Miralax (For Daily Use) - PO 17 gm BID CARTER Administration Ranitidine HCl 150 mg 10/02/18 02:45 10/06/18 09:09 Zantac - PO 150 mg BID CARTER Administration Sucralfate 1 gm 10/05/18 18:00 10/06/18 13:23 Carafate Oral Suspension - PO 1 gm QID CARTER Administration Laboratory Results - last 24 hr 10/02/18 10/05/18 10/06/18 00:01 08:50 07:56 WBC RBC Hgb Hct MCV MCH MCHC RDW Plt Count MPV Absolute Neuts (auto) Neutrophils % Neutrophils % (Manual) Band Neutrophils % Lymphocytes % Lymphocytes % (Manual) Monocytes % Monocytes % (Manual) Eosinophils % Eosinophils % (Manual) Basophils % Basophils % (Manual) Myelocytes % (Man) Promyelocytes % (Man) Blast Cells % (Manual) Nucleated RBC % Metamyelocytes Hypochromia Platelet Estimate Polychromasia Poikilocytosis Anisocytosis Microcytosis Macrocytosis Sodium 137 Potassium 5.4 H Chloride 106 Carbon Dioxide 26 Anion Gap 5 L BUN 14.9 Creatinine 0.7 Est GFR (CKD-EPI)AfAm 104.64 Est GFR (CKD-EPI)NonAf 90.29 Random Glucose 81 Calcium 7.9 L Total Bilirubin 0.5 AST 16 ALT 38 Alkaline Phosphatase 272 H Total Protein 5.4 L Albumin 2.7 L Synovial Neutrophils 90 Synovial Lymphocytes 3 Synovial Monocytes 7 Synovial Histocytes No Result Required. Synovial Plasma Cells No Result Required. Synovial LE Cells No Result Required. Synovial Macrophages No Result Required. Synovial Other Cells No Result Required. Synovial Diff Comment No Result Required. Synovial Crystals Negative Blood Type A POSITIVE Antibody Screen Negative Antigen Identification Cancelled Crossmatch See Detail 10/06/18 07:56 WBC 3.3 L RBC 2.94 L Hgb 8.7 L Hct 25.3 L MCV 85.8 MCH 29.7 MCHC 34.6 RDW 17.6 H Plt Count 121 L MPV 7.2 L Absolute Neuts (auto) 2.3 Neutrophils % 67.5 Neutrophils % (Manual) 63.0 Band Neutrophils % 0.0 Lymphocytes % 18.6 Lymphocytes % (Manual) 17.0 Monocytes % 13.4 H Monocytes % (Manual) 9 Eosinophils % 0.1 Eosinophils % (Manual) 0.0 D Basophils % 0.4 Basophils % (Manual) 0.0 Myelocytes % (Man) 3 H D Promyelocytes % (Man) 0 Blast Cells % (Manual) 0 Nucleated RBC % 3 H Metamyelocytes 7 H D Hypochromia 0 Platelet Estimate Decreased Polychromasia 0 Poikilocytosis 0 Anisocytosis 0 Microcytosis 0 Macrocytosis 0 Sodium Potassium Chloride Carbon Dioxide Anion Gap BUN Creatinine Est GFR (CKD-EPI)AfAm Est GFR (CKD-EPI)NonAf Random Glucose Calcium Total Bilirubin AST ALT Alkaline Phosphatase Total Protein Albumin Synovial Neutrophils Synovial Lymphocytes Synovial Monocytes Synovial Histocytes Synovial Plasma Cells Synovial LE Cells Synovial Macrophages Synovial Other Cells Synovial Diff Comment Synovial Crystals Blood Type Antibody Screen Antigen Identification Crossmatch S1 S2 RRR Lungs clear Abd- soft, NT edema left leg, left knee warm+ PLAN s/p arthrocentesis iv antibiotics per ID-- 4 weeks may need to know when pt receives chemotherapy and also 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 pain control add lidocaine patch to left knee Problem List - Problems (1) Fever Code(s): R50.9 - FEVER, UNSPECIFIED Qualifiers: Fever type: unspecified Qualified Code(s): R50.9 - Fever, unspecified (2) Hyperbilirubinemia Code(s): E80.6 - OTHER DISORDERS OF BILIRUBIN METABOLISM (3) Hyponatremia Code(s): E87.1 - HYPO-OSMOLALITY AND HYPONATREMIA (4) Neutropenic fever Code(s): D70.9 - NEUTROPENIA, UNSPECIFIED; R50.81 - FEVER PRESENTING WITH CONDITIONS CLASSIFIED ELSEWHERE (5) Neutropenic sepsis Code(s): A41.9 - SEPSIS, UNSPECIFIED ORGANISM; D70.9 - NEUTROPENIA, UNSPECIFIED (6) Pancytopenia Code(s): D61.818 - OTHER PANCYTOPENIA (7) Rectal bleeding Code(s): K62.5 - HEMORRHAGE OF ANUS AND RECTUM (8) Systemic inflammatory response syndrome (SIRS) Code(s): R65.10 - SIRS OF NON-INFECTIOUS ORIGIN W/O ACUTE ORGAN DYSFUNCTION (9) Metastatic breast cancer Code(s): C50.919 - MALIGNANT NEOPLASM OF UNSP SITE OF UNSPECIFIED FEMALE BREAST
[2018-10-06 14:45] LABS: BLOOD UREA NITROGEN 12.7 mg/dL (7-18); CALCIUM 7.8 mg/dL (8.5-10.1); CREATININE 0.7 mg/dL (0.55-1.3); POTASSIUM 4.6 mmol/L (3.5-5.1)
[2018-10-06] MEDS: LIDOCAINE 5% TOPICAL PATCH TP SCH (14:50)
[2018-10-06] MEDS ORDERED: ALTEPLASE 2 MG VIAL IVPUSH ONE (16:46)
--- NOTE | 2018-10-06 16:46 | PN ---
Progress Note (short form) - Note Progress Note: Patient seen and examined Still with knee pains Some blood on wiping after bowel movement Last Vital Signs Temp Pulse Resp BP Pulse Ox 98.2 F 84 20 121/68 98 10/06/18 14:12 10/06/18 14:12 10/06/18 14:12 10/06/18 14:12 10/06/18 09:00 HEENT: GLADYS, EOM Intact Cor: RSR, No murmurs, No gallops Lungs: Clear to P&A Abd: Soft, Normal bowel sounds, No organomegaly Ext:No significant edema Skin: No rashes, Integument intact Decrease ROM left knee CBC, BMP 10/06/18 07:56 10/06/18 13:32 Current Medications Generic Name Dose Route Start Last Admin Trade Name Freq PRN Reason Stop Dose Admin Acetaminophen 1,000 mg 10/02/18 04:47 10/02/18 14:31 Ofirmev Injection - IVPB 1,000 mg Q6H PRN Administration FEVER Alprazolam 1 mg 10/02/18 22:00 10/05/18 21:39 Xanax - PO 1 mg HS CARTER Administration Amitriptyline HCl 25 mg 10/02/18 22:00 10/05/18 21:39 Elavil - PO 25 mg HS CARTER Administration Dexamethasone 2 mg 10/02/18 14:45 10/06/18 09:06 Decadron - PO 2 mg DAILY CARTER Administration Gabapentin 300 mg 10/02/18 06:00 10/06/18 13:23 Neurontin - PO 300 mg TID CARTER Administration Ceftriaxone Sodium 2 gm/ 100 mls @ 200 mls/hr 10/05/18 10:00 10/06/18 09:06 Dextrose IVPB 200 mls/hr DAILY CARTER Administration Protocol Lidocaine 1 patch 10/06/18 14:00 10/06/18 14:50 Lidoderm Patch - TP 1 patch DAILY CARTER Administration Metoprolol Succinate 25 mg 10/02/18 10:00 10/06/18 09:09 Toprol Xl - PO 25 mg DAILY CARTER Administration Miscellaneous 1 each 10/06/18 22:00 Lidoderm Patch Removal MC DAILY@2200 CARTER Morphine Sulfate 15 mg 10/02/18 10:00 10/06/18 09:05 Ms Contin - PO 15 mg BID CARTER Administration Morphine Sulfate 4 mg 10/04/18 11:20 10/06/18 13:26 Morphine Sulfate IVPUSH 4 mg Q4H PRN Administration PAIN LEVEL 6-10 Polyethylene Glycol 17 gm 10/04/18 15:45 10/06/18 09:05 Miralax (For Daily Use) - PO 17 gm BID CARTER Administration Ranitidine HCl 150 mg 10/02/18 02:45 10/06/18 09:09 Zantac - PO 150 mg BID CARTER Administration Sucralfate 1 gm 10/05/18 18:00 10/06/18 13:23 Carafate Oral Suspension - PO 1 gm QID CARTER Administration Microbiology 10/03/18 11:45 Blood - Peripheral Venous Blood Culture - Preliminary NO GROWTH OBTAINED AFTER 72 HOURS, INCUBATION TO CONTINUE FOR 2 DAYS. 10/03/18 11:45 Blood - Peripheral Venous Blood Culture - Preliminary NO GROWTH OBTAINED AFTER 72 HOURS, INCUBATION TO CONTINUE FOR 2 DAYS. 10/05/18 08:50 Synovial Fluid - Knee Gram Stain - Final 10/05/18 08:50 Synovial Fluid - Knee Body Fluid Culture - Preliminary NO AEROBIC GROWTH, 24 HRS 10/02/18 00:01 Blood - Peripheral Venous Blood Culture - Final Strep Agalactiae Group B 10/02/18 00:01 Blood - Peripheral Venous Blood Culture - Final Strep Agalactiae Group B 10/02/18 02:00 Urine - Urine Clean Catch Urine Culture - Final Impression: Metastatic breast ca Bone mets Strep bacteremia Left knee effusion Gm stain of fluid with PMN's no bacteria, but pt hs been on antibiotics x days Port - no return Pancytopenia - improved Plan: cath flow Ab per ID
[2018-10-06] MEDS: AMITRIPTYLINE HCL 25 MG TABLET (FP) PO SCH (22:00)
[2018-10-06] MEDS: ALPRAZolam 0.25 MG TABLET PO SCH (22:00)
[2018-10-06] MEDS: LIDOCAINE PATCH REMOVAL MC SCH (23:45)
[2018-10-07] MEDS: GABAPENTIN 300 MG CAPSULE (FP) PO SCH ×3 (05:32→21:57)
[2018-10-07 06:55] LABS: BASO % 0.6 % (0-2.0); EOS % 0.2 % (0-4.5); HEMATOCRIT 24.9 % (32.4-45.2); HEMOGLOBIN 8.4 GM/dL (10.7-15.3); MCH 29.2 pg (25.7-33.7); MCHC 33.7 g/dl (32.0-36.0); MEAN CELL VOLUME 86.7 fl (80-96); MEAN PLT VOLUME 7.4 fl (7.5-11.1); MONO % 11.3 % (3.8-10.2); NEUT % 67.9 % (42.8-82.8); PLATELET COUNT 120 K/MM3 (134-434); RBC 2.87 M/mm3 (3.60-5.2); RDW 17.7 % (11.6-15.6); WHITE BLOOD COUNT 3.7 K/mm3 (4.0-10.0)
[2018-10-07 07:20] LABS: ALBUMIN 2.6 g/dl (3.4-5.0); BLOOD UREA NITROGEN 12.7 mg/dL (7-18); CALCIUM 7.6 mg/dL (8.5-10.1); CREATININE 0.7 mg/dL (0.55-1.3); POTASSIUM 4.9 mmol/L (3.5-5.1); TOT PROT 5.1 g/dl (6.4-8.2)
[2018-10-07 07:21] LABS: BILIRUBIN,TOTAL 0.5 mg/dL (0.2-1)
[2018-10-07] MEDS ORDERED: DEXTROSE 5%-WATER 100 ML IVPB ONE (08:41)
[2018-10-07] MEDS: metoPROLOL SUCCINATE 25 MG TAB.SR.24H (FP) PO SCH (09:12)
[2018-10-07] MEDS: morphine SO4 SUSTAINED ACTING 15 MG TABLET.SA PO SCH ×2 (09:12→21:57)
[2018-10-07] MEDS: RANITIDINE HCL 150 MG TABLET (FP) PO SCH ×2 (09:13→21:57)
[2018-10-07] MEDS: LIDOCAINE 5% TOPICAL PATCH TP SCH (09:14)
[2018-10-07] MEDS: SUCRALFATE 1 GM/10 ML UNIT DOSE CUPS PO SCH ×4 (09:14→21:56)
[2018-10-07] MEDS: POLYETHYLENE GLYCOL 3350 119 GM BTL PO SCH ×2 (09:15→22:00)
[2018-10-07] MEDS: DEXAMETHASONE 4 MG TABLET (FP) PO SCH (09:15)
[2018-10-07] MEDS: CEFTRIAXONE 2 GM in DEXTROSE 5%-WATER 100 ML IVPB SCH (09:20)
[2018-10-07 10:34] LABS: ANISOCYTOSIS 2+; MACROCYTOSIS 0; PLATELET ESTIMATE DECREASED
[2018-10-07] MEDS: morphine SULFATE 4 MG/ML VIAL IVPUSH PRN ×2 (10:47→15:13)
--- NOTE | 2018-10-07 12:22 | PN ---
Progress Note (short form) - Note Progress Note: has pain in left knee- better on lidocaine patch s/p arthrocentesis blood in stools -- no hard stools shivering -- afebrile repeat blood cultures drawn Vital Signs - 24 hr 10/06/18 10/06/18 10/06/18 14:12 17:52 21:00 Temperature 98.2 F 98.0 F Pulse Rate 84 81 Respiratory 20 18 18 Rate Blood Pressure 121/68 105/64 O2 Sat by Pulse 98 Oximetry (%) 10/06/18 10/07/18 10/07/18 23:00 05:00 09:00 Temperature 98.3 F 98.2 F 97.8 F Pulse Rate 82 73 82 Respiratory 18 18 18 Rate Blood Pressure 111/78 109/60 133/79 O2 Sat by Pulse 99 Oximetry (%) Current Medications Generic Name Dose Route Start Last Admin Trade Name Freq PRN Reason Stop Dose Admin Acetaminophen 1,000 mg 10/02/18 04:47 10/02/18 14:31 Ofirmev Injection - IVPB 1,000 mg Q6H PRN Administration FEVER Alprazolam 1 mg 10/02/18 22:00 10/06/18 22:00 Xanax - PO 1 mg HS CARTER Administration Amitriptyline HCl 25 mg 10/02/18 22:00 10/06/18 22:00 Elavil - PO 25 mg HS CARTER Administration Dexamethasone 2 mg 10/02/18 14:45 10/07/18 09:15 Decadron - PO 2 mg DAILY CARTER Administration Gabapentin 300 mg 10/02/18 06:00 10/07/18 05:32 Neurontin - PO 300 mg TID CARTER Administration Ceftriaxone Sodium 2 gm/ 100 mls @ 200 mls/hr 10/05/18 10:00 10/07/18 09:20 Dextrose IVPB 200 mls/hr DAILY CARTER Administration Protocol Lidocaine 1 patch 10/06/18 14:00 10/07/18 09:14 Lidoderm Patch - TP 1 patch DAILY CARTER Administration Metoprolol Succinate 25 mg 10/02/18 10:00 10/07/18 09:12 Toprol Xl - PO 25 mg DAILY CARTER Administration Miscellaneous 1 each 10/06/18 22:00 10/06/18 23:45 Lidoderm Patch Removal MC 1 each DAILY@2200 CARTER Administration Morphine Sulfate 15 mg 10/02/18 10:00 10/07/18 09:12 Ms Contin - PO 15 mg BID CARTER Administration Morphine Sulfate 4 mg 10/07/18 10:41 10/07/18 10:47 Morphine Sulfate IVPUSH 4 mg Q4H PRN Administration PAIN LEVEL 6-10 Polyethylene Glycol 17 gm 10/04/18 15:45 10/07/18 09:15 Miralax (For Daily Use) - PO 17 gm BID CARTER Administration Ranitidine HCl 150 mg 10/02/18 02:45 10/07/18 09:13 Zantac - PO 150 mg BID CARTER Administration Sucralfate 1 gm 10/05/18 18:00 10/07/18 09:14 Carafate Oral Suspension - PO 1 gm QID CARTER Administration Laboratory Results - last 24 hr 10/06/18 10/07/18 10/07/18 13:32 05:41 05:41 WBC 3.7 L RBC 2.87 L Hgb 8.4 L Hct 24.9 L MCV 86.7 MCH 29.2 MCHC 33.7 RDW 17.7 H Plt Count 120 L MPV 7.4 L Absolute Neuts (auto) 2.5 Neutrophils % 67.9 Neutrophils % (Manual) 53.4 Band Neutrophils % 4.8 Lymphocytes % 20.0 Lymphocytes % (Manual) 26.2 D Monocytes % 11.3 H Monocytes % (Manual) 7 Eosinophils % 0.2 D Eosinophils % (Manual) 0.0 Basophils % 0.6 Basophils % (Manual) 0.0 Myelocytes % (Man) 2 D Promyelocytes % (Man) 1 D Blast Cells % (Manual) 0 Nucleated RBC % 3 H Metamyelocytes 5 H D Hypochromia 0 Platelet Estimate Decreased Polychromasia 0 Poikilocytosis 0 Anisocytosis 2+ Microcytosis 2+ Macrocytosis 0 Sodium 136 136 Potassium 4.6 4.9 Chloride 104 110 H Carbon Dioxide 23 26 Anion Gap 8 1 L BUN 12.7 12.7 Creatinine 0.7 0.7 Est GFR (CKD-EPI)AfAm 104.64 104.64 Est GFR (CKD-EPI)NonAf 90.29 90.29 Random Glucose 141 H 79 Calcium 7.8 L 7.6 L Total Bilirubin 0.5 AST 14 L ALT 36 Alkaline Phosphatase 300 H Total Protein 5.1 L Albumin 2.6 L S1 S2 RRR Lungs clear Abd- soft, NT edema left leg, left knee warm+ PLAN HB stable s/p arthrocentesis iv antibiotics per ID-- 4 weeks may need to know when pt receives chemotherapy and also she will need mcc antibiotics-- will it be through portacath or insert piccline? pain control OOB daily Problem List - Problems (1) Fever Code(s): R50.9 - FEVER, UNSPECIFIED Qualifiers: Fever type: unspecified Qualified Code(s): R50.9 - Fever, unspecified (2) Hyperbilirubinemia Code(s): E80.6 - OTHER DISORDERS OF BILIRUBIN METABOLISM (3) Hyponatremia Code(s): E87.1 - HYPO-OSMOLALITY AND HYPONATREMIA (4) Neutropenic fever Code(s): D70.9 - NEUTROPENIA, UNSPECIFIED; R50.81 - FEVER PRESENTING WITH CONDITIONS CLASSIFIED ELSEWHERE (5) Neutropenic sepsis Code(s): A41.9 - SEPSIS, UNSPECIFIED ORGANISM; D70.9 - NEUTROPENIA, UNSPECIFIED (6) Pancytopenia Code(s): D61.818 - OTHER PANCYTOPENIA (7) Rectal bleeding Code(s): K62.5 - HEMORRHAGE OF ANUS AND RECTUM (8) Systemic inflammatory response syndrome (SIRS) Code(s): R65.10 - SIRS OF NON-INFECTIOUS ORIGIN W/O ACUTE ORGAN DYSFUNCTION (9) Metastatic breast cancer Code(s): C50.919 - MALIGNANT NEOPLASM OF UNSP SITE OF UNSPECIFIED FEMALE BREAST
--- NOTE | 2018-10-07 15:46 | PN ---
Progress Note (short form) - Note Progress Note: chills earlier today still with knee pain still with neck pain at site of radiation blood cultures drawn through port Vital Signs Period Temp Pulse Resp BP Sys/Nuñez Pulse Ox Last 24 Hr 97.8 F-98.9 F 73-84 18-18 103-133/58-79 98-99 cor-rrr lungs clear abd soft,nt ext +knee effusion CBC, BMP 10/07/18 05:41 10/07/18 05:41 Microbiology 10/03/18 11:45 Blood - Peripheral Venous Blood Culture - Preliminary NO GROWTH OBTAINED AFTER 96 HOURS, INCUBATION TO CONTINUE FOR 1 DAYS. 10/03/18 11:45 Blood - Peripheral Venous Blood Culture - Preliminary NO GROWTH OBTAINED AFTER 96 HOURS, INCUBATION TO CONTINUE FOR 1 DAYS. 10/05/18 08:50 Synovial Fluid - Knee Gram Stain - Final 10/05/18 08:50 Synovial Fluid - Knee Body Fluid Culture - Final NO GROWTH OF AEROBIC ORGANISMS AFTER 48 HOURS INCUBATION 10/05/18 08:50 Synovial Fluid - Knee Anaerobic Culture - Final NO ANAEROBES WERE ISOLATED 10/02/18 00:01 Blood - Peripheral Venous Blood Culture - Final Strep Agalactiae Group B 10/02/18 00:01 Blood - Peripheral Venous Blood Culture - Final Strep Agalactiae Group B 10/02/18 02:00 Urine - Urine Clean Catch Urine Culture - Final mri- with suprapatellar effusion, +bony metastatic disease a/p bacteremia- group b strep ?source, no signs of cellulitis, f/u urine culture repeat blood cultures today echo wnl continue rocephin plan 4 weeks of antibioitics right knee effusion (has had in the past)- cultures negative, cell count not c/ w septic knee neutropenia resolved- history of metastatic breast cancer d/w daughter at bedside Problem List - Problems (1) Neutropenic fever Code(s): D70.9 - NEUTROPENIA, UNSPECIFIED; R50.81 - FEVER PRESENTING WITH CONDITIONS CLASSIFIED ELSEWHERE (2) Pancytopenia Code(s): D61.818 - OTHER PANCYTOPENIA (3) Rectal bleeding Code(s): K62.5 - HEMORRHAGE OF ANUS AND RECTUM
--- NOTE | 2018-10-07 17:00 | PN ---
Progress Note, Physician History of Present Illness: Pt seen and examined at bedside. She is awake and alert. - Current Medication List Current Medications: Active Medications Alprazolam (Xanax -) 1 mg PO HS [facility] Last Admin: 10/06/18 22:00 Dose: 1 mg Amitriptyline HCl (Elavil -) 25 mg PO HS [facility] Last Admin: 10/06/18 22:00 Dose: 25 mg Dexamethasone (Decadron -) 2 mg PO DAILY [facility] Last Admin: 10/07/18 09:15 Dose: 2 mg Gabapentin (Neurontin -) 300 mg PO TID [facility] Last Admin: 10/07/18 13:46 Dose: 300 mg Ceftriaxone Sodium 2 gm/ (Dextrose) 100 mls @ 200 mls/hr IVPB DAILY [facility]; Protocol Last Admin: 10/07/18 09:20 Dose: 200 mls/hr Lidocaine (Lidoderm Patch -) 1 patch TP DAILY [facility] Last Admin: 10/07/18 09:14 Dose: 1 patch Metoprolol Succinate (Toprol Xl -) 25 mg PO DAILY [facility] Last Admin: 10/07/18 09:12 Dose: 25 mg Miscellaneous (Lidoderm Patch Removal) 1 each MC DAILY@2200 [facility] Last Admin: 10/06/18 23:45 Dose: 1 each Morphine Sulfate (Ms Contin -) 15 mg PO BID [facility] Last Admin: 10/07/18 09:12 Dose: 15 mg Morphine Sulfate (Morphine Sulfate) 4 mg IVPUSH Q4H PRN PRN Reason: PAIN LEVEL 6-10 Last Admin: 10/07/18 15:13 Dose: 4 mg Polyethylene Glycol (Miralax (For Daily Use) -) 17 gm PO BID [facility] Last Admin: 10/07/18 09:15 Dose: 17 gm Ranitidine HCl (Zantac -) 150 mg PO BID [facility] Last Admin: 10/07/18 09:13 Dose: 150 mg Sucralfate (Carafate Oral Suspension -) 1 gm PO QID [facility] Last Admin: 10/07/18 13:46 Dose: 1 gm - Objective Vital Signs: Vital Signs Temperature 98.9 F 10/07/18 14:05 Pulse Rate 84 10/07/18 14:05 Respiratory Rate 18 10/07/18 14:05 Blood Pressure 103/58 L 10/07/18 14:05 O2 Sat by Pulse Oximetry (%) 99 10/07/18 09:00 Constitutional: Yes: Calm Eyes: Yes: Conjunctiva Clear HENT: Yes: Atraumatic Cardiovascular: Yes: S1, S2 Respiratory: Yes: CTA Bilaterally Gastrointestinal: Yes: Soft Genitourinary: Yes: WNL Musculoskeletal: Yes: WNL Edema: LLE: 1+ Neurological: Yes: Oriented Psychiatric: Yes: Oriented Labs: CBC, BMP 10/07/18 05:41 10/07/18 05:41 INR, PTT INR 1.23 (0.83-1.09) H 10/02/18 00:01 Problem List - Problems (1) Hyponatremia Code(s): E87.1 - HYPO-OSMOLALITY AND HYPONATREMIA Assessment/Plan Current Medications Generic Name Dose Route Start Last Admin Trade Name Freq PRN Reason Stop Dose Admin Alprazolam 1 mg 10/02/18 22:00 10/06/18 22:00 Xanax - PO 1 mg HS CARTER Administration Amitriptyline HCl 25 mg 10/02/18 22:00 10/06/18 22:00 Elavil - PO 25 mg HS CARTER Administration Dexamethasone 2 mg 10/02/18 14:45 10/07/18 09:15 Decadron - PO 2 mg DAILY CARTER Administration Gabapentin 300 mg 10/02/18 06:00 10/07/18 13:46 Neurontin - PO 300 mg TID CARTER Administration Ceftriaxone Sodium 2 gm/ 100 mls @ 200 mls/hr 10/05/18 10:00 10/07/18 09:20 Dextrose IVPB 200 mls/hr DAILY CARTER Administration Protocol Lidocaine 1 patch 10/06/18 14:00 10/07/18 09:14 Lidoderm Patch - TP 1 patch DAILY CARTER Administration Metoprolol Succinate 25 mg 10/02/18 10:00 10/07/18 09:12 Toprol Xl - PO 25 mg DAILY CARTER Administration Miscellaneous 1 each 10/06/18 22:00 10/06/18 23:45 Lidoderm Patch Removal MC 1 each DAILY@2200 CARTER Administration Morphine Sulfate 15 mg 10/02/18 10:00 10/07/18 09:12 Ms Contin - PO 15 mg BID CARTER Administration Morphine Sulfate 4 mg 10/07/18 10:41 10/07/18 15:13 Morphine Sulfate IVPUSH 4 mg Q4H PRN Administration PAIN LEVEL 6-10 Polyethylene Glycol 17 gm 10/04/18 15:45 10/07/18 09:15 Miralax (For Daily Use) - PO 17 gm BID CARTER Administration Ranitidine HCl 150 mg 10/02/18 02:45 10/07/18 09:13 Zantac - PO 150 mg BID CARTER Administration Sucralfate 1 gm 10/05/18 18:00 10/07/18 13:46 Carafate Oral Suspension - PO 1 gm QID CARTER Administration Impression 1. hyponatremia 2. htn 3. pancytopenia 4. breast cancer Plan - sodium stable - repeat labs in am - discussed free water intake - follow up arthrocentesis results - will follow PRN
--- NOTE | 2018-10-07 17:49 | PN ---
Progress Note (short form) - Note Progress Note: Patient seen and examined 10/07/18 Left knee pain AMBULATING WITH WALKER Last Vital Signs Temp Pulse Resp BP Pulse Ox 98.6 F 85 18 118/65 99 10/07/18 17:32 10/07/18 17:32 10/07/18 17:32 10/07/18 17:32 10/07/18 09:00 Cor: RSR, No murmurs, No gallops Lungs: Clear to P&A Abd: Soft, Normal bowel sounds, No organomegaly Ext:LLE 1+ edema Abnormal Lab Results 10/07/18 10/07/18 05:41 05:41 WBC 3.7 L RBC 2.87 L Hgb 8.4 L Hct 24.9 L RDW 17.7 H Plt Count 120 L MPV 7.4 L Monocytes % 11.3 H Nucleated RBC % 3 H Metamyelocytes 5 H D Chloride 110 H Anion Gap 1 L Calcium 7.6 L AST 14 L Alkaline Phosphatase 300 H Total Protein 5.1 L Albumin 2.6 L Active Medications Generic Name Dose Route Start Last Admin Trade Name Freq PRN Reason Stop Dose Admin Alprazolam 1 mg 10/02/18 22:00 10/06/18 22:00 Xanax - PO 1 mg HS CARTER Administration Amitriptyline HCl 25 mg 10/02/18 22:00 10/06/18 22:00 Elavil - PO 25 mg HS CARTER Administration Dexamethasone 2 mg 10/02/18 14:45 10/07/18 09:15 Decadron - PO 2 mg DAILY CARTER Administration Gabapentin 300 mg 10/02/18 06:00 10/07/18 13:46 Neurontin - PO 300 mg TID CARTER Administration Ceftriaxone Sodium 2 gm/ 100 mls @ 200 mls/hr 10/05/18 10:00 10/07/18 09:20 Dextrose IVPB 200 mls/hr DAILY CARTER Administration Protocol Lidocaine 1 patch 10/06/18 14:00 10/07/18 09:14 Lidoderm Patch - TP 1 patch DAILY CARTER Administration Metoprolol Succinate 25 mg 10/02/18 10:00 10/07/18 09:12 Toprol Xl - PO 25 mg DAILY CARTER Administration Miscellaneous 1 each 10/06/18 22:00 10/06/18 23:45 Lidoderm Patch Removal MC 1 each DAILY@2200 CARTER Administration Morphine Sulfate 15 mg 10/02/18 10:00 10/07/18 09:12 Ms Contin - PO 15 mg BID CARTER Administration Morphine Sulfate 4 mg 10/07/18 10:41 10/07/18 15:13 Morphine Sulfate IVPUSH 4 mg Q4H PRN Administration PAIN LEVEL 6-10 Polyethylene Glycol 17 gm 10/04/18 15:45 10/07/18 09:15 Miralax (For Daily Use) - PO 17 gm BID CARTER Administration Ranitidine HCl 150 mg 10/02/18 02:45 10/07/18 09:13 Zantac - PO 150 mg BID CARTER Administration Sucralfate 1 gm 10/05/18 18:00 10/07/18 17:30 Carafate Oral Suspension - PO 1 gm QID CARTER Administration A/P 68F w/ ER/IA positive, 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 Found to have strep agalactiae bacteremia. On vanco/zosyn. Afebrile >24 hours. Repeat blood cultures pending. Responded well to PRBC with no further bloody BMs. C/w dexamethasone 2 mg daily Pelvic vein doppler for eval of LLE swelling also neg will f/u MRI consult rad-onc
[2018-10-07] MEDS: LIDOCAINE PATCH REMOVAL MC SCH (21:56)
[2018-10-07] MEDS: AMITRIPTYLINE HCL 25 MG TABLET (FP) PO SCH (21:56)
[2018-10-07] MEDS: ALPRAZolam 0.25 MG TABLET PO SCH (21:57)
[2018-10-08] MEDS: GABAPENTIN 300 MG CAPSULE (FP) PO SCH ×3 (06:23→22:02)
[2018-10-08] MEDS ORDERED: DEXTROSE 5%-WATER 100 ML IVPB ONE (09:02)
[2018-10-08] MEDS: POLYETHYLENE GLYCOL 3350 119 GM BTL PO SCH ×3 (09:54→22:03)
[2018-10-08] MEDS: morphine SO4 SUSTAINED ACTING 15 MG TABLET.SA PO SCH ×2 (09:54→22:01)
[2018-10-08] MEDS: LIDOCAINE 5% TOPICAL PATCH TP SCH (09:55)
[2018-10-08] MEDS: CEFTRIAXONE 2 GM in DEXTROSE 5%-WATER 100 ML IVPB SCH (09:55)
[2018-10-08] MEDS: DEXAMETHASONE 4 MG TABLET (FP) PO SCH (09:56)
[2018-10-08] MEDS: SUCRALFATE 1 GM/10 ML UNIT DOSE CUPS PO SCH ×4 (09:57→22:02)
[2018-10-08] MEDS: RANITIDINE HCL 150 MG TABLET (FP) PO SCH ×2 (09:58→22:02)
[2018-10-08] MEDS: metoPROLOL SUCCINATE 25 MG TAB.SR.24H (FP) PO SCH (10:03)
--- NOTE | 2018-10-08 13:10 | PN ---
Progress Note (short form) - Note Progress Note: pt seen/ examined chart reviewed all f/u noted complains of knee pain/ neck pain says came last night -- going to consult RT Vital Signs Temp 98.5 F 10/08/18 09:00 Pulse 87 10/08/18 09:00 Resp 18 10/08/18 09:00 BP 120/63 10/08/18 09:00 Pulse Ox 99 10/07/18 21:00 Intake & Output 10/07/18 10/08/18 10/08/18 23:59 11:59 23:59 Intake Total 300 150 Balance 300 150 Intake: IV 0 0 RCW Portacath 0 0 IVPB 100 Oral 200 150 Other: Voiding Method Toilet Toilet Bowel Movement Yes Active Medications Alprazolam (Xanax -) 1 mg PO HS [facility] Last Admin: 10/07/18 21:57 Dose: 1 mg Amitriptyline HCl (Elavil -) 25 mg PO [facility] Last Admin: 10/07/18 21:56 Dose: 25 mg Dexamethasone (Decadron -) 2 mg PO DAILY [facility] Last Admin: 10/08/18 09:56 Dose: 2 mg Gabapentin (Neurontin -) 300 mg PO TID [facility] Last Admin: 10/08/18 06:23 Dose: 300 mg Ceftriaxone Sodium 2 gm/ (Dextrose) 100 mls @ 200 mls/hr IVPB DAILY [facility]; Protocol Last Admin: 10/08/18 09:55 Dose: 200 mls/hr Lidocaine (Lidoderm Patch -) 1 patch TP DAILY [facility] Last Admin: 10/08/18 09:55 Dose: 1 patch Metoprolol Succinate (Toprol Xl -) 25 mg PO DAILY [facility] Last Admin: 10/08/18 10:03 Dose: 25 mg Miscellaneous (Lidoderm Patch Removal) 1 each MC DAILY@2200 [facility] Last Admin: 10/07/18 21:56 Dose: 1 each Morphine Sulfate (Ms Contin -) 15 mg PO BID [facility] Last Admin: 10/08/18 09:54 Dose: 15 mg Morphine Sulfate (Morphine Sulfate) 4 mg IVPUSH Q4H PRN PRN Reason: PAIN LEVEL 6-10 Last Admin: 10/07/18 15:13 Dose: 4 mg Polyethylene Glycol (Miralax (For Daily Use) -) 17 gm PO BID [facility] Last Admin: 10/08/18 09:54 Dose: 17 gm Ranitidine HCl (Zantac -) 150 mg PO BID [facility] Last Admin: 10/08/18 09:58 Dose: 150 mg Sucralfate (Carafate Oral Suspension -) 1 gm PO QID [facility] Last Admin: 10/08/18 09:57 Dose: 1 gm CBC, BMP 10/07/18 05:41 10/07/18 05:41 Microbiology 10/03/18 11:45 Blood Culture - Final Blood - Peripheral Venous NO GROWTH AFTER 5 DAYS INCUBATION 10/03/18 11:45 Blood Culture - Final Blood - Peripheral Venous NO GROWTH AFTER 5 DAYS INCUBATION 10/06/18 08:45 Blood Culture - Preliminary Blood - Johann Cath NO GROWTH OBTAINED AFTER 24 HOURS, INCUBATION TO CONTINUE FOR 4 DAYS. 10/06/18 09:20 Blood Culture - Preliminary Blood - Johann Cath NO GROWTH OBTAINED AFTER 24 HOURS, INCUBATION TO CONTINUE FOR 4 DAYS. 10/05/18 08:50 Gram Stain - Final Synovial Fluid - Knee Body Fluid Culture - Final NO GROWTH OF AEROBIC ORGANISMS AFTER 48 HOURS INCUBATION Anaerobic Culture - Final NO ANAEROBES WERE ISOLATED Physical Exam S1 S2 RRR Lungs clear Abd- soft, NT edema left leg, left knee PLAN s/p arthrocentesis iv antibiotics per ID-- 4 weeks may need to know when pt receives chemotherapy and also she will need [facility] antibiotics-- will it be through portacath or insert piccline? pain control OOB daily will discuss with oncology Will follow Pt Resended DNR. Problem List - Problems (1) Fever Code(s): R50.9 - FEVER, UNSPECIFIED Qualifiers: Fever type: unspecified Qualified Code(s): R50.9 - Fever, unspecified (2) Metastatic breast cancer Code(s): C50.919 - MALIGNANT NEOPLASM OF UNSP SITE OF UNSPECIFIED FEMALE BREAST (3) Pancytopenia Code(s): D61.818 - OTHER PANCYTOPENIA (4) Neutropenic sepsis Code(s): A41.9 - SEPSIS, UNSPECIFIED ORGANISM; D70.9 - NEUTROPENIA, UNSPECIFIED (5) Sepsis Code(s): A41.9 - SEPSIS, UNSPECIFIED ORGANISM
[2018-10-08] MEDS: morphine SULFATE 4 MG/ML VIAL IVPUSH PRN ×2 (14:06→21:58)
--- NOTE | 2018-10-08 19:27 | PN ---
Progress Note (short form) - Note Progress Note: Patient seen and examined 10/07/18 Left knee pain AMBULATING WITH WALKER Last Vital Signs Temp Pulse Resp BP Pulse Ox 98.3 F 90 18 121/68 99 10/08/18 15:06 10/08/18 15:06 10/08/18 15:06 10/08/18 15:06 10/08/18 09:00 Cor: RSR, No murmurs, No gallops Lungs: Clear to P&A Abd: Soft, Normal bowel sounds, No organomegaly Ext:LLE 1+ edema Active Medications Generic Name Dose Route Start Last Admin Trade Name Freq PRN Reason Stop Dose Admin Alprazolam 1 mg 10/02/18 22:00 10/07/18 21:57 Xanax - PO 1 mg HS [facility] Administration Amitriptyline HCl 25 mg 10/02/18 22:00 10/07/18 21:56 Elavil - PO 25 mg HS [facility] Administration Dexamethasone 2 mg 10/02/18 14:45 10/08/18 09:56 Decadron - PO 2 mg DAILY [facility] Administration Gabapentin 300 mg 10/02/18 06:00 10/08/18 14:00 Neurontin - PO 300 mg TID [facility] Administration Ceftriaxone Sodium 2 gm/ 100 mls @ 200 mls/hr 10/05/18 10:00 10/08/18 09:55 Dextrose IVPB 200 mls/hr DAILY [facility] Administration Protocol Lidocaine 1 patch 10/06/18 14:00 10/08/18 09:55 Lidoderm Patch - TP 1 patch DAILY [facility] Administration Metoprolol Succinate 25 mg 10/02/18 10:00 10/08/18 10:03 Toprol Xl - PO 25 mg DAILY [facility] Administration Miscellaneous 1 each 10/06/18 22:00 10/07/18 21:56 Lidoderm Patch Removal MC 1 each DAILY@2200 [facility] Administration Morphine Sulfate 15 mg 10/02/18 10:00 10/08/18 09:54 Ms Contin - PO 15 mg BID [facility] Administration Morphine Sulfate 4 mg 10/07/18 10:41 10/08/18 14:06 Morphine Sulfate IVPUSH 4 mg Q4H PRN Administration PAIN LEVEL 6-10 Polyethylene Glycol 17 gm 10/04/18 15:45 10/08/18 09:54 Miralax (For Daily Use) - PO 17 gm BID [facility] Administration Ranitidine HCl 150 mg 10/02/18 02:45 10/08/18 09:58 Zantac - PO 150 mg BID [facility] Administration Sucralfate 1 gm 10/05/18 18:00 10/08/18 18:39 Carafate Oral Suspension - PO 1 gm QID [facility] Administration A/P 68F w/ ER/VT positive, 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 Found to have strep agalactiae bacteremia. On vanco/zosyn. Afebrile >24 hours. Repeat blood cultures pending. Responded well to PRBC with no further bloody BMs. C/w dexamethasone 2 mg daily Pelvic vein doppler for eval of LLE swelling also neg Left femur fracture. Had prior RT. Discussed with Dr. Roldan/Dr. Harman For possible OR on 10/08/18 for ORIF Discussed with MD--will need medical clearence Will request ID clearence given recent bacteremia Discussed with patient and daughter will notify Dr. Galvan
[2018-10-08] MEDS ORDERED: PT OWN MED DRAWER 7, Y5N ONE (20:58)
[2018-10-08] MEDS: AMITRIPTYLINE HCL 25 MG TABLET (FP) PO SCH (22:02)
[2018-10-08] MEDS: ALPRAZolam 0.25 MG TABLET PO SCH (22:02)
[2018-10-08] MEDS: LIDOCAINE PATCH REMOVAL MC SCH (22:03)
[2018-10-09] MEDS ORDERED: PT OWN MED DRAWER 7, Y5N ONE ×2 (00:32→22:37)
[2018-10-09] MEDS: POLYETHYLENE GLYCOL 3350 119 GM BTL PO SCH ×3 (03:12→22:47)
[2018-10-09] MEDS: GABAPENTIN 300 MG CAPSULE (FP) PO SCH ×3 (06:29→22:45)
[2018-10-09] MEDS: morphine SULFATE 4 MG/ML VIAL IVPUSH PRN ×2 (06:56→12:00)
--- NOTE | 2018-10-09 10:37 | PN ---
Progress Note (short form) - Note Progress Note: has pain in left knee- left leg is swollen Vital Signs - 24 hr 10/08/18 10/08/18 10/08/18 15:06 18:30 21:00 Temperature 98.3 F 98.5 F Pulse Rate 90 98 H Respiratory 18 18 19 Rate Blood Pressure 121/68 132/72 O2 Sat by Pulse 98 Oximetry (%) 10/09/18 10/09/18 00:00 06:16 Temperature 98.2 F 98.0 F Pulse Rate 91 H 85 Respiratory 19 20 Rate Blood Pressure 119/79 108/67 O2 Sat by Pulse Oximetry (%) Current Medications Generic Name Dose Route Start Last Admin Trade Name Freq PRN Reason Stop Dose Admin Alprazolam 1 mg 10/02/18 22:00 10/08/18 22:02 Xanax - PO 1 mg HS [facility] Administration Amitriptyline HCl 25 mg 10/02/18 22:00 10/08/18 22:02 Elavil - PO 25 mg HS [facility] Administration Dexamethasone 2 mg 10/02/18 14:45 10/09/18 11:12 Decadron - PO 2 mg DAILY [facility] Administration Gabapentin 300 mg 10/02/18 06:00 10/09/18 06:29 Neurontin - PO 300 mg TID [facility] Administration Ceftriaxone Sodium 2 gm/ 100 mls @ 200 mls/hr 10/05/18 10:00 10/09/18 11:11 Dextrose IVPB 200 mls/hr DAILY [facility] Administration Protocol Lidocaine 1 patch 10/06/18 14:00 10/09/18 11:13 Lidoderm Patch - TP 1 patch DAILY [facility] Administration Metoprolol Succinate 25 mg 10/02/18 10:00 10/09/18 11:12 Toprol Xl - PO 25 mg DAILY [facility] Administration Miscellaneous 1 each 10/06/18 22:00 10/08/18 22:03 Lidoderm Patch Removal MC 1 each DAILY@2200 [facility] Administration Morphine Sulfate 15 mg 10/02/18 10:00 10/09/18 11:15 Ms Contin - PO 15 mg BID [facility] Administration Morphine Sulfate 4 mg 10/07/18 10:41 10/09/18 06:56 Morphine Sulfate IVPUSH 4 mg Q4H PRN Administration PAIN LEVEL 6-10 Polyethylene Glycol 17 gm 10/04/18 15:45 06/22/19 11:15 Miralax (For Daily Use) - PO Not Given BID [facility] Ranitidine HCl 150 mg 10/02/18 02:45 10/09/18 11:12 Zantac - PO 150 mg BID [facility] Administration Sucralfate 1 gm 10/05/18 18:00 10/09/18 11:13 Carafate Oral Suspension - PO 1 gm QID [facility] Administration S1 S2 RRR Lungs clear Abd- soft, NT edema left leg, left knee warm+ PLAN HB stable has pathological fracture distal left knee going for surgery this Thursday iv antibiotics per ID-- 4 weeks pain control OOB daily Problem List - Problems (1) Fever Code(s): R50.9 - FEVER, UNSPECIFIED Qualifiers: Fever type: unspecified Qualified Code(s): R50.9 - Fever, unspecified (2) Hyperbilirubinemia Code(s): E80.6 - OTHER DISORDERS OF BILIRUBIN METABOLISM (3) Hyponatremia Code(s): E87.1 - HYPO-OSMOLALITY AND HYPONATREMIA (4) Neutropenic fever Code(s): D70.9 - NEUTROPENIA, UNSPECIFIED; R50.81 - FEVER PRESENTING WITH CONDITIONS CLASSIFIED ELSEWHERE (5) Neutropenic sepsis Code(s): A41.9 - SEPSIS, UNSPECIFIED ORGANISM; D70.9 - NEUTROPENIA, UNSPECIFIED (6) Pancytopenia Code(s): D61.818 - OTHER PANCYTOPENIA (7) Rectal bleeding Code(s): K62.5 - HEMORRHAGE OF ANUS AND RECTUM (8) Systemic inflammatory response syndrome (SIRS) Code(s): R65.10 - SIRS OF NON-INFECTIOUS ORIGIN W/O ACUTE ORGAN DYSFUNCTION (9) Metastatic breast cancer Code(s): C50.919 - MALIGNANT NEOPLASM OF UNSP SITE OF UNSPECIFIED FEMALE BREAST
[2018-10-09] MEDS ORDERED: DEXTROSE 5%-WATER 100 ML IVPB ONE (11:06)
[2018-10-09] MEDS: CEFTRIAXONE 2 GM in DEXTROSE 5%-WATER 100 ML IVPB SCH (11:11)
[2018-10-09] MEDS: RANITIDINE HCL 150 MG TABLET (FP) PO SCH ×2 (11:12→22:45)
[2018-10-09] MEDS: metoPROLOL SUCCINATE 25 MG TAB.SR.24H (FP) PO SCH (11:12)
[2018-10-09] MEDS: DEXAMETHASONE 4 MG TABLET (FP) PO SCH (11:12)
[2018-10-09] MEDS: LIDOCAINE 5% TOPICAL PATCH TP SCH (11:13)
[2018-10-09] MEDS: SUCRALFATE 1 GM/10 ML UNIT DOSE CUPS PO SCH ×4 (11:13→22:44)
[2018-10-09] MEDS: morphine SO4 SUSTAINED ACTING 15 MG TABLET.SA PO SCH ×2 (11:15→22:45)
--- NOTE | 2018-10-09 14:02 | PN ---
Progress Note (short form) - Note Progress Note: Seen in follow up. Reports controlled pain R knee, otherwise no new complaints. Inpatient Meds reviewed. Current Medications Alprazolam (Xanax -) 1 mg PO HS [facility] Last Admin: 10/08/18 22:02 Dose: 1 mg Amitriptyline HCl (Elavil -) 25 mg PO HS [facility] Last Admin: 10/08/18 22:02 Dose: 25 mg Dexamethasone (Decadron -) 2 mg PO DAILY [facility] Last Admin: 10/09/18 11:12 Dose: 2 mg Gabapentin (Neurontin -) 300 mg PO TID [facility] Last Admin: 10/09/18 06:29 Dose: 300 mg Ceftriaxone Sodium 2 gm/ (Dextrose) 100 mls @ 200 mls/hr IVPB DAILY [facility]; Protocol Last Admin: 10/09/18 11:11 Dose: 200 mls/hr Lidocaine (Lidoderm Patch -) 1 patch TP DAILY [facility] Last Admin: 10/09/18 11:13 Dose: 1 patch Metoprolol Succinate (Toprol Xl -) 25 mg PO DAILY [facility] Last Admin: 10/09/18 11:12 Dose: 25 mg Miscellaneous (Lidoderm Patch Removal) 1 each MC DAILY@2200 [facility] Last Admin: 10/08/18 22:03 Dose: 1 each Morphine Sulfate (Ms Contin -) 15 mg PO BID [facility] Last Admin: 10/09/18 11:15 Dose: 15 mg Morphine Sulfate (Morphine Sulfate) 4 mg IVPUSH Q4H PRN PRN Reason: PAIN LEVEL 6-10 Last Admin: 10/09/18 06:56 Dose: 4 mg Polyethylene Glycol (Miralax (For Daily Use) -) 17 gm PO BID [facility] Last Admin: 10/09/18 11:15 Dose: Not Given Ranitidine HCl (Zantac -) 150 mg PO BID [facility] Last Admin: 10/09/18 11:12 Dose: 150 mg Sucralfate (Carafate Oral Suspension -) 1 gm PO QID [facility] Last Admin: 10/09/18 11:13 Dose: 1 gm On Examination: Last Vital Signs Temp Pulse Resp BP Pulse Ox 97.6 F 82 20 125/74 98 10/09/18 13:37 10/09/18 13:37 10/09/18 13:37 10/09/18 13:37 10/08/18 21:00 General: In no acute distress, sitting in chair at bedside. Extremities: No pallor or icterus. No pedal edema. No palpable lymphadenopathy. CVS: S1, S2, regular, no gallop or murmur. Chest: tachypneic but not distress, off oxygen. Abdomen: paresh, non-distended Neuro: Alert, oriented, non-focal. Labs: CBC, BMP 10/07/18 05:41 10/07/18 05:41 Assessment. 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 Found to have strep agalactiae bacteremia. On vanco/zosyn. Afebrile >24 hours. Repeat blood cultures pending. Responded well to PRBC with no further bloody BMs. C/w dexamethasone 2 mg daily Pelvic vein doppler for eval of LLE swelling also neg Left femur fracture. Had prior RT. Discussed with Dr. Roldan/Dr. Harman For possible OR on 10/08/18 for ORIF
[2018-10-09] MEDS: AMITRIPTYLINE HCL 25 MG TABLET (FP) PO SCH (22:45)
[2018-10-09] MEDS: LIDOCAINE PATCH REMOVAL MC SCH (22:46)
[2018-10-10] MEDS: ALPRAZolam 2 MG TABLET PO SCH ×2 (02:56→23:29)
[2018-10-10] MEDS: GABAPENTIN 300 MG CAPSULE (FP) PO SCH ×3 (07:00→23:29)
[2018-10-10 07:38] LABS: BASO % 0.5 % (0-2.0); EOS % 0.2 % (0-4.5); HEMATOCRIT 22.8 % (32.4-45.2); HEMOGLOBIN 7.8 GM/dL (10.7-15.3); LYMPH % 17.2 % (8-40); MEAN CELL VOLUME 88.2 fl (80-96); MONO % 7.3 % (3.8-10.2); NEUT % 74.8 % (42.8-82.8); PLATELET COUNT 123 K/MM3 (134-434); RBC 2.59 M/mm3 (3.60-5.2); RDW 18.5 % (11.6-15.6); WHITE BLOOD COUNT 4.4 K/mm3 (4.0-10.0)
[2018-10-10 08:15] LABS: INR 0.97 (0.83-1.09); PROTHROMBIN TIME (PATIENT) 11.4 SEC (9.7-13.0)
[2018-10-10 08:32] LABS: ALBUMIN 2.5 g/dl (3.4-5.0); BILIRUBIN,TOTAL 0.4 mg/dL (0.2-1); BLOOD UREA NITROGEN 10.5 mg/dL (7-18); CALCIUM 7.6 mg/dL (8.5-10.1); CREATININE 0.7 mg/dL (0.55-1.3); POTASSIUM 4.2 mmol/L (3.5-5.1); TOT PROT 5.5 g/dl (6.4-8.2)
--- NOTE | 2018-10-10 09:40 | CONSULT ---
Consult - text type - Consultation Consultation Note: FULL CONSULT DICTATED IMP: PATHOLOGICAL FRACTURE LEFT DISTAL FEMUR PLAN: PATIENT NEEDS DISTAL FEMORAL REPLACEMENT . fAMILY TO DECIDE
[2018-10-10] MEDS ORDERED: DEXTROSE 5%-WATER 100 ML IVPB ONE (10:12)
[2018-10-10 10:20] LABS: ANISOCYTOSIS 2+; MACROCYTOSIS 0; PLATELET ESTIMATE DECREASED
[2018-10-10] MEDS: SUCRALFATE 1 GM/10 ML UNIT DOSE CUPS PO SCH ×4 (10:29→23:31)
[2018-10-10] MEDS: DEXAMETHASONE 4 MG TABLET (FP) PO SCH (10:30)
[2018-10-10] MEDS: LIDOCAINE 5% TOPICAL PATCH TP SCH (10:30)
[2018-10-10] MEDS: morphine SO4 SUSTAINED ACTING 15 MG TABLET.SA PO SCH ×2 (10:31→23:30)
[2018-10-10] MEDS: CEFTRIAXONE 2 GM in DEXTROSE 5%-WATER 100 ML IVPB SCH (10:31)
[2018-10-10] MEDS: POLYETHYLENE GLYCOL 3350 119 GM BTL PO SCH ×2 (10:31→23:31)
[2018-10-10] MEDS: RANITIDINE HCL 150 MG TABLET (FP) PO SCH ×2 (10:33→23:29)
[2018-10-10] MEDS: metoPROLOL SUCCINATE 25 MG TAB.SR.24H (FP) PO SCH (10:33)
[2018-10-10] MEDS: morphine SULFATE 4 MG/ML VIAL IVPUSH PRN (10:34)
--- NOTE | 2018-10-10 11:01 | PN ---
Progress Note (short form) - Note Progress Note: has pain in left knee- left leg is swollen pain is better controlled with meds Vital Signs - 24 hr 10/09/18 10/09/18 10/10/18 21:00 23:00 05:47 Temperature 98.1 F 97.8 F Pulse Rate 86 77 Respiratory 20 20 20 Rate Blood Pressure 128/58 L 105/60 O2 Sat by Pulse 98 Oximetry (%) 10/10/18 10/10/18 10/10/18 10:00 10:27 14:36 Temperature 98.9 F 97.9 F Pulse Rate 89 88 Respiratory 18 20 Rate Blood Pressure 118/67 126/65 O2 Sat by Pulse 99 Oximetry (%) Current Medications Generic Name Dose Route Start Last Admin Trade Name Freq PRN Reason Stop Dose Admin Alprazolam 1 mg 10/10/18 01:30 10/10/18 02:56 Xanax - PO 1 mg HS [facility] Administration Amitriptyline HCl 25 mg 10/02/18 22:00 10/09/18 22:45 Elavil - PO 25 mg HS [facility] Administration Dexamethasone 2 mg 10/02/18 14:45 10/10/18 10:30 Decadron - PO 2 mg DAILY [facility] Administration Gabapentin 300 mg 10/02/18 06:00 10/10/18 13:36 Neurontin - PO 300 mg TID [facility] Administration Hydrochlorothiazide 12.5 mg 10/10/18 11:15 10/10/18 13:36 Hctz - PO 12.5 mg DAILY [facility] Administration Ceftriaxone Sodium 2 gm/ 100 mls @ 200 mls/hr 10/05/18 10:00 10/10/18 10:31 Dextrose IVPB 200 mls/hr DAILY [facility] Administration Protocol Lidocaine 1 patch 10/06/18 14:00 10/10/18 10:30 Lidoderm Patch - TP 1 patch DAILY [facility] Administration Metoprolol Succinate 25 mg 10/02/18 10:00 10/10/18 10:33 Toprol Xl - PO 25 mg DAILY [facility] Administration Miscellaneous 1 each 10/06/18 22:00 10/09/18 22:46 Lidoderm Patch Removal MC 1 each DAILY@2200 [facility] Administration Morphine Sulfate 15 mg 10/02/18 10:00 10/10/18 10:31 Ms Contin - PO 15 mg BID [facility] Administration Morphine Sulfate 4 mg 10/07/18 10:41 10/10/18 10:34 Morphine Sulfate IVPUSH 4 mg Q4H PRN Administration PAIN LEVEL 6-10 Polyethylene Glycol 17 gm 10/04/18 15:45 10/10/18 10:31 Miralax (For Daily Use) - PO Not Given BID [facility] Ranitidine HCl 150 mg 10/02/18 02:45 10/10/18 10:33 Zantac - PO 150 mg BID [facility] Administration Sucralfate 1 gm 10/05/18 18:00 10/10/18 17:57 Carafate Oral Suspension - PO 1 gm QID [facility] Administration Laboratory Results - last 24 hr 10/10/18 10/10/18 10/10/18 07:00 07:00 07:00 WBC 4.4 RBC 2.59 L Hgb 7.8 L Hct 22.8 L MCV 88.2 MCH 30.0 MCHC 34.0 RDW 18.5 H Plt Count 123 L MPV 7.0 L Absolute Neuts (auto) 3.3 Neutrophils % 74.8 Neutrophils % (Manual) 58.6 Band Neutrophils % 5.0 Lymphocytes % 17.2 Lymphocytes % (Manual) 12.1 D Monocytes % 7.3 Monocytes % (Manual) 7 Eosinophils % 0.2 Eosinophils % (Manual) 0.0 Basophils % 0.5 Basophils % (Manual) 1.0 D Myelocytes % (Man) 8 H D Promyelocytes % (Man) 0 D Blast Cells % (Manual) 0 Nucleated RBC % 5 H Metamyelocytes 8 H D Hypochromia 0 Platelet Estimate Decreased Polychromasia 2+ Poikilocytosis 0 Anisocytosis 2+ Microcytosis 2+ Macrocytosis 0 PT with INR 11.40 INR 0.97 PTT (Actin FS) 45.0 H Sodium 141 Potassium 4.2 Chloride 109 H Carbon Dioxide 26 Anion Gap 7 L BUN 10.5 Creatinine 0.7 Est GFR (CKD-EPI)AfAm 104.64 Est GFR (CKD-EPI)NonAf 90.29 Random Glucose 78 Calcium 7.6 L Total Bilirubin 0.4 AST 14 L ALT 27 Alkaline Phosphatase 393 H Total Protein 5.5 L Albumin 2.5 L Blood Type Antibody Screen 10/10/18 07:00 WBC RBC Hgb Hct MCV MCH MCHC RDW Plt Count MPV Absolute Neuts (auto) Neutrophils % Neutrophils % (Manual) Band Neutrophils % Lymphocytes % Lymphocytes % (Manual) Monocytes % Monocytes % (Manual) Eosinophils % Eosinophils % (Manual) Basophils % Basophils % (Manual) Myelocytes % (Man) Promyelocytes % (Man) Blast Cells % (Manual) Nucleated RBC % Metamyelocytes Hypochromia Platelet Estimate Polychromasia Poikilocytosis Anisocytosis Microcytosis Macrocytosis PT with INR INR PTT (Actin FS) Sodium Potassium Chloride Carbon Dioxide Anion Gap BUN Creatinine Est GFR (CKD-EPI)AfAm Est GFR (CKD-EPI)NonAf Random Glucose Calcium Total Bilirubin AST ALT Alkaline Phosphatase Total Protein Albumin Blood Type A POSITIVE Antibody Screen Negative S1 S2 RRR Lungs clear Abd- soft, NT edema left leg, left knee warm+ PLAN HB decreased has pathological fracture distal left knee ?going for surgery this Thursday family wishes to speak to DR Galvan first iv antibiotics per ID-- 4 weeks pain control OOB daily Problem List - Problems (1) Fever Code(s): R50.9 - FEVER, UNSPECIFIED Qualifiers: Fever type: unspecified Qualified Code(s): R50.9 - Fever, unspecified (2) Hyperbilirubinemia Code(s): E80.6 - OTHER DISORDERS OF BILIRUBIN METABOLISM (3) Hyponatremia Code(s): E87.1 - HYPO-OSMOLALITY AND HYPONATREMIA (4) Neutropenic fever Code(s): D70.9 - NEUTROPENIA, UNSPECIFIED; R50.81 - FEVER PRESENTING WITH CONDITIONS CLASSIFIED ELSEWHERE (5) Neutropenic sepsis Code(s): A41.9 - SEPSIS, UNSPECIFIED ORGANISM; D70.9 - NEUTROPENIA, UNSPECIFIED (6) Pancytopenia Code(s): D61.818 - OTHER PANCYTOPENIA (7) Rectal bleeding Code(s): K62.5 - HEMORRHAGE OF ANUS AND RECTUM (8) Systemic inflammatory response syndrome (SIRS) Code(s): R65.10 - SIRS OF NON-INFECTIOUS ORIGIN W/O ACUTE ORGAN DYSFUNCTION (9) Metastatic breast cancer Code(s): C50.919 - MALIGNANT NEOPLASM OF UNSP SITE OF UNSPECIFIED FEMALE BREAST
[2018-10-10] MEDS: HYDROCHLOROTHIAZIDE 12.5 MG CAPSULE (FP) PO SCH (13:36)
--- NOTE | 2018-10-10 14:01 | PN ---
Progress Note (short form) - Note Progress Note: Seen in follow up. Reports controlled pain L knee, otherwise no new complaints. Inpatient Meds reviewed. Current Medications Alprazolam (Xanax -) 1 mg PO HS [facility] Last Admin: 10/10/18 02:56 Dose: 1 mg Amitriptyline HCl (Elavil -) 25 mg PO HS [facility] Last Admin: 10/09/18 22:45 Dose: 25 mg Dexamethasone (Decadron -) 2 mg PO DAILY [facility] Last Admin: 10/10/18 10:30 Dose: 2 mg Gabapentin (Neurontin -) 300 mg PO TID [facility] Last Admin: 10/10/18 13:36 Dose: 300 mg Hydrochlorothiazide (Hctz -) 12.5 mg PO DAILY [facility] Last Admin: 10/10/18 13:36 Dose: 12.5 mg Ceftriaxone Sodium 2 gm/ (Dextrose) 100 mls @ 200 mls/hr IVPB DAILY [facility]; Protocol Last Admin: 10/10/18 10:31 Dose: 200 mls/hr Lidocaine (Lidoderm Patch -) 1 patch TP DAILY [facility] Last Admin: 10/10/18 10:30 Dose: 1 patch Metoprolol Succinate (Toprol Xl -) 25 mg PO DAILY [facility] Last Admin: 10/10/18 10:33 Dose: 25 mg Miscellaneous (Lidoderm Patch Removal) 1 each MC DAILY@2200 [facility] Last Admin: 10/09/18 22:46 Dose: 1 each Morphine Sulfate (Ms Contin -) 15 mg PO BID [facility] Last Admin: 10/10/18 10:31 Dose: 15 mg Morphine Sulfate (Morphine Sulfate) 4 mg IVPUSH Q4H PRN PRN Reason: PAIN LEVEL 6-10 Last Admin: 10/10/18 10:34 Dose: 4 mg Polyethylene Glycol (Miralax (For Daily Use) -) 17 gm PO BID [facility] Last Admin: 10/10/18 10:31 Dose: Not Given Ranitidine HCl (Zantac -) 150 mg PO BID [facility] Last Admin: 10/10/18 10:33 Dose: 150 mg Sucralfate (Carafate Oral Suspension -) 1 gm PO QID [facility] Last Admin: 10/10/18 13:36 Dose: 1 gm On Examination: Last Vital Signs Temp Pulse Resp BP Pulse Ox 97.8 F 77 20 105/60 99 10/10/18 05:47 10/10/18 05:47 10/10/18 05:47 10/10/18 05:47 10/10/18 10:27 General: In no acute distress, sitting in chair at bedside. Extremities: No pallor or icterus. No pedal edema. No palpable lymphadenopathy. CVS: S1, S2, regular, no gallop or murmur. Chest: breathing comfortably Abdomen: soft, non-distended Neuro: Alert, oriented, non-focal. Labs: CBC, BMP 10/10/18 07:00 10/10/18 07:00 Assessment. 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 Found to have strep agalactiae bacteraemia. On ceftriaxone now - Apyrrhexic since 10/03. Responded well to PRBC. Hb stable with no further bloody BMs. Left distal femur fracture. Had prior RT. For possible OR on 10/08/18 for distal femur replacement. Explained extensively to patient and family - reassured her that surgery does not 'spread the cancer'. Wishes to discuss with Dr Galvan prior to agreeing to surgery - will convey message.
[2018-10-10] MEDS: AMITRIPTYLINE HCL 25 MG TABLET (FP) PO SCH (23:30)
[2018-10-10] MEDS: LIDOCAINE PATCH REMOVAL MC SCH (23:31)
[2018-10-11] MEDS: GABAPENTIN 300 MG CAPSULE (FP) PO SCH ×3 (06:21→22:12)
[2018-10-11 07:37] LABS: HEMATOCRIT 23.4 % (32.4-45.2); MCH 29.8 pg (25.7-33.7); MCHC 34.2 g/dl (32.0-36.0); PLATELET COUNT 129 K/MM3 (134-434); RBC 2.69 M/mm3 (3.60-5.2); WHITE BLOOD COUNT 4.8 K/mm3 (4.0-10.0)
[2018-10-11 08:05] LABS: ALBUMIN 2.6 g/dl (3.4-5.0); BILIRUBIN,TOTAL 0.4 mg/dL (0.2-1); BLOOD UREA NITROGEN 9.8 mg/dL (7-18); CALCIUM 7.9 mg/dL (8.5-10.1); CREATININE 0.8 mg/dL (0.55-1.3); POTASSIUM 4.7 mmol/L (3.5-5.1); TOT PROT 5.3 g/dl (6.4-8.2)
[2018-10-11] MEDS ORDERED: DEXTROSE 5%-WATER 100 ML IVPB ONE (09:13)
--- NOTE | 2018-10-11 09:34 | PN ---
Progress Note (short form) - Note Progress Note: Ortho Pt seen and examined s/p left pathologic distal femur fx Selected Entries 10/11/18 06:49 Temperature 98.3 F Pulse Rate 86 Respiratory 18 Rate Blood Pressure 120/67 + swelling, + ttp, decr rom, nvi a/p Risks and benefits were d/w pt in detail Will speak with daughter in regards to surgery d/w Dr. Harman
[2018-10-11] MEDS: RANITIDINE HCL 150 MG TABLET (FP) PO SCH ×2 (09:36→22:12)
[2018-10-11] MEDS: metoPROLOL SUCCINATE 25 MG TAB.SR.24H (FP) PO SCH (09:36)
[2018-10-11] MEDS: SUCRALFATE 1 GM/10 ML UNIT DOSE CUPS PO SCH ×4 (09:36→22:12)
[2018-10-11] MEDS: morphine SO4 SUSTAINED ACTING 15 MG TABLET.SA PO SCH ×2 (09:36→22:12)
[2018-10-11] MEDS: DEXAMETHASONE 4 MG TABLET (FP) PO SCH (09:36)
[2018-10-11] MEDS: POLYETHYLENE GLYCOL 3350 119 GM BTL PO SCH ×2 (09:37→22:13)
[2018-10-11] MEDS: HYDROCHLOROTHIAZIDE 12.5 MG CAPSULE (FP) PO SCH (09:37)
[2018-10-11] MEDS: CEFTRIAXONE 2 GM in DEXTROSE 5%-WATER 100 ML IVPB SCH (09:37)
[2018-10-11] MEDS: LIDOCAINE 5% TOPICAL PATCH TP SCH (09:37)
--- NOTE | 2018-10-11 11:43 | PN ---
Progress Note (short form) - Note Progress Note: pt seen/ examined chart reviewed all f/u noted family at bedside feels better says willing to do surgery-- Infact says-- Ortho told her -- will do on Thursday denies cp/sob/abd pain Vital Signs Temp 98.6 F 10/11/18 09:45 Pulse 85 10/11/18 09:45 Resp 18 10/11/18 09:45 BP 117/66 10/11/18 09:45 Pulse Ox 100 10/10/18 21:00 Intake & Output 10/10/18 10/10/18 10/11/18 11:59 23:59 11:59 Intake Total 1460 0 Balance 1460 0 Intake: IV 0 RCW Portacath 0 IVPB 100 0 Oral 1360 Other: Voiding Method Toilet Toilet # Unmeasured Voids Void 2 2 Bowel Movement No No # Bowel Movements 1 Active Medications Alprazolam (Xanax -) 1 mg PO HS [facility] Last Admin: 10/10/18 23:29 Dose: 1 mg Amitriptyline HCl (Elavil -) 25 mg PO [facility] Last Admin: 10/10/18 23:30 Dose: 25 mg Dexamethasone (Decadron -) 2 mg PO DAILY [facility] Last Admin: 10/11/18 09:36 Dose: 2 mg Gabapentin (Neurontin -) 300 mg PO TID [facility] Last Admin: 10/11/18 06:21 Dose: 300 mg Hydrochlorothiazide (Hctz -) 12.5 mg PO DAILY [facility] Last Admin: 10/11/18 09:37 Dose: 12.5 mg Ceftriaxone Sodium 2 gm/ (Dextrose) 100 mls @ 200 mls/hr IVPB DAILY [facility]; Protocol Last Admin: 10/11/18 09:37 Dose: 200 mls/hr Lidocaine (Lidoderm Patch -) 1 patch TP DAILY [facility] Last Admin: 10/11/18 09:37 Dose: 1 patch Metoprolol Succinate (Toprol Xl -) 25 mg PO DAILY [facility] Last Admin: 10/11/18 09:36 Dose: 25 mg Miscellaneous (Lidoderm Patch Removal) 1 each MC DAILY@2200 [facility] Last Admin: 10/10/18 23:31 Dose: 1 each Morphine Sulfate (Ms Contin -) 15 mg PO BID [facility] Last Admin: 10/11/18 09:36 Dose: 15 mg Morphine Sulfate (Morphine Sulfate) 4 mg IVPUSH Q4H PRN PRN Reason: PAIN LEVEL 6-10 Last Admin: 10/10/18 10:34 Dose: 4 mg Polyethylene Glycol (Miralax (For Daily Use) -) 17 gm PO BID [facility] Last Admin: 10/11/18 09:37 Dose: Not Given Ranitidine HCl (Zantac -) 150 mg PO BID [facility] Last Admin: 10/11/18 09:36 Dose: 150 mg Sucralfate (Carafate Oral Suspension -) 1 gm PO QID [facility] Last Admin: 10/11/18 09:36 Dose: 1 gm CBC, BMP 10/11/18 06:43 10/11/18 06:43 Microbiology 10/06/18 09:20 Blood Culture - Preliminary Blood - Johann Cath NO GROWTH OBTAINED AFTER 96 HOURS, INCUBATION TO CONTINUE FOR 1 DAYS. 10/06/18 08:45 Blood Culture - Preliminary Blood - Johann Cath NO GROWTH OBTAINED AFTER 96 HOURS, INCUBATION TO CONTINUE FOR 1 DAYS. Physical Exam. S1 S2 RRR Lungs clear Abd- soft, NT edema left leg, left knee A/p Left Femur Pathological Fracture Metastatic breast ca Anemia Strep Bactremia Will transfuse in anticipation of surgery Continue Abx -- Total 4 Weeks will follow Discussed with Nursing staff also Problem List - Problems (1) Fever Code(s): R50.9 - FEVER, UNSPECIFIED Qualifiers: Fever type: unspecified Qualified Code(s): R50.9 - Fever, unspecified (2) Metastatic breast cancer Code(s): C50.919 - MALIGNANT NEOPLASM OF UNSP SITE OF UNSPECIFIED FEMALE BREAST (3) Pancytopenia Code(s): D61.818 - OTHER PANCYTOPENIA (4) Neutropenic sepsis Code(s): A41.9 - SEPSIS, UNSPECIFIED ORGANISM; D70.9 - NEUTROPENIA, UNSPECIFIED (5) Sepsis Code(s): A41.9 - SEPSIS, UNSPECIFIED ORGANISM
--- NOTE | 2018-10-11 12:38 | PN ---
Progress Note (short form) - Note Progress Note: Radiation Oncology - full consult to follow Pt seen this AM, chart/films reviewed. Hx metastatic breast cancer s/p Taxol and palliative RT to proximal and distal left femur, L-spine, and recently completed right shoulder and C-spine on for symptomatic relief. Is admitted with pathologic fracture left distal femur on MRI. I spoke to her this morning, agree with proceeding with left femur surgical stabilization. To consider postop RT to femur and tibia thereafter.
--- NOTE | 2018-10-11 13:17 | CONS ---
ORTHOPAEDIC CONSULTATION DATE OF CONSULTATION: 10/10/2018 HISTORY: Patient is a 68-year-old female with known metastatic cancer involving the distal femur. She has been treated conservatively with chemotherapy and possible radiation and presents with worsening pain in the left leg when she lies in bed. She has minimal pain with any ambulation causing pain going up the left knee region. PHYSICAL EXAMINATION: She does have swelling around her left knee. She has pain with range of motion of the knee. Calf is soft, nontender. There is also swelling or edema or ecchymosis . Otherwise, neurovascularly intact. Good motion hip, ankle, and toes. DIAGNOSTIC DATA: X-rays and CAT scan reveal a large lytic lesion of the distal femur with pathological femur fracture seen mostly on MRI not on regular x-ray. IMPRESSION: Pathologic left distal femur fracture involving the distal femur. PLAN: Due to the size of the tumor, location of the fracture, patient would require a distal femoral replacement and total knee replacement. Most likely rodding would not work to bypass this fracture as there is no bone distally below the level of the femur. Patient would like to discuss it with her daughter. I spoke to the daughter at length on speakerphone with the patient present. She would like to have a discussion with Dr. Galvan, her oncologist, before proceeding. She will have that meeting with him tomorrow morning and then see me after that for us to discuss the procedure and what would be done or if the procedure would be done. CASSIDY PASCUAL M.D. [id number]
[2018-10-11] MEDS: oxyCODONE HCL 5 MG TABLET PO PRN (14:04)
--- NOTE | 2018-10-11 17:14 | PN ---
Progress Note, Physician History of Present Illness: OOB IN CHAIR C/O L KNEE PAIN NO F/C - Current Medication List Current Medications: Active Medications Alprazolam (Xanax -) 1 mg PO HS [facility] Last Admin: 10/10/18 23:29 Dose: 1 mg Amitriptyline HCl (Elavil -) 25 mg PO HS [facility] Last Admin: 10/10/18 23:30 Dose: 25 mg Dexamethasone (Decadron -) 2 mg PO DAILY [facility] Last Admin: 10/11/18 09:36 Dose: 2 mg Gabapentin (Neurontin -) 300 mg PO TID [facility] Last Admin: 10/11/18 14:04 Dose: 300 mg Hydrochlorothiazide (Hctz -) 12.5 mg PO DAILY [facility] Last Admin: 10/11/18 09:37 Dose: 12.5 mg Ceftriaxone Sodium 2 gm/ (Dextrose) 100 mls @ 200 mls/hr IVPB DAILY [facility]; Protocol Last Admin: 10/11/18 09:37 Dose: 200 mls/hr Lidocaine (Lidoderm Patch -) 1 patch TP DAILY [facility] Last Admin: 10/11/18 09:37 Dose: 1 patch Metoprolol Succinate (Toprol Xl -) 25 mg PO DAILY [facility] Last Admin: 10/11/18 09:36 Dose: 25 mg Miscellaneous (Lidoderm Patch Removal) 1 each MC DAILY@2200 [facility] Last Admin: 10/10/18 23:31 Dose: 1 each Morphine Sulfate (Ms Contin -) 15 mg PO BID [facility] Last Admin: 10/11/18 09:36 Dose: 15 mg Oxycodone HCl (Roxicodone -) 10 mg PO Q6H PRN PRN Reason: PAIN LEVEL 6-10 Last Admin: 10/11/18 14:04 Dose: 10 mg Polyethylene Glycol (Miralax (For Daily Use) -) 17 gm PO BID [facility] Last Admin: 10/11/18 09:37 Dose: Not Given Ranitidine HCl (Zantac -) 150 mg PO BID [facility] Last Admin: 10/11/18 09:36 Dose: 150 mg Sucralfate (Carafate Oral Suspension -) 1 gm PO QID [facility] Last Admin: 10/11/18 14:05 Dose: 1 gm - Objective Vital Signs: Vital Signs Temperature 98.6 F 10/11/18 15:30 Pulse Rate 87 10/11/18 15:30 Respiratory Rate 20 10/11/18 15:30 Blood Pressure 125/66 10/11/18 15:30 O2 Sat by Pulse Oximetry (%) 100 10/11/18 09:00 Constitutional: Yes: No Distress Eyes: Yes: Conjunctiva Clear Cardiovascular: Yes: Regular Rate and Rhythm, S1, S2 Respiratory: Yes: CTA Bilaterally Gastrointestinal: Yes: Normal Bowel Sounds, Soft. No: Tenderness Extremities: Yes: Other (L KNEE SWELLING) Labs: CBC, BMP 10/11/18 06:43 10/11/18 06:43 INR, PTT INR 0.97 (0.83-1.09) 10/10/18 07:00 Assessment/Plan GRP B STREP BACTEREMIA R FEMUR FRACTURE S/P NEUTROPENIC FEVER METASTATIC BREAST CA CONTINUE CEFTRIAXONE WILL DISCUSS KNEE SURGERY WITH DR PASCUAL
--- NOTE | 2018-10-11 18:51 | PN ---
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 Found to have strep agalactiae bacteremia. On vanco/zosyn. Afebrile >24 hours. Repeat blood cultures pending. Responded well to PRBC with no further bloody BMs. C/w dexamethasone 2 mg daily Pelvic vein doppler for eval of LLE swelling also neg Left femur fracture. Had prior RT. Ongoing management discussions with family
--- NOTE | 2018-10-11 20:54 | CONS ---
DATE OF CONSULTATION: 10/11/2018 REFERRING PHYSICIAN: Isabel Soriano MD REASON FOR CONSULTATION: Pathologic left femur fracture. HISTORY OF PRESENT ILLNESS: The patient is a 68-year-old woman known to me with a history of metastatic breast cancer, who has received multiple courses of palliative radiation therapy including the left proximal and distal femur, L2-L4 spine, and most recently completed treatment of the right shoulder and cervical spine on September. During her therapy, she reported increased pain in the left knee, and x- ray films were ordered. She has received Zometa and Taxol from the systemic therapy standpoint. She is admitted with neutropenic fevers/sepsis. She was started on antibiotics and is followed by ID. She received packed red blood cell transfusion. She had rectal bleeding felt to be related to internal hemorrhoids and is followed by GI service. She had lower extremity duplex ultrasound which ruled out DVT. The x-ray films showed questionable lucent and sclerotic changes in the proximal tibia and distal femur suggesting metastatic disease, but there was no evidence fracture. MRI of the left lower extremity demonstrated large suprapatellar joint effusion , soft tissue swelling, edema in the muscles, and diffuse metastatic disease in the distal femur and proximal tibia associated with a pathologic fracture of the posterior medial aspect of the distal femoral metaphysis at the junction with the epiphysis. She was seen by the orthopedic surgery service, and surgical stabilization is recommended. She is undecided at the moment. She reports that the C-spine and right shoulder movement is improved with less pain. Her main concern is the left knee swelling and pain. She is unable to ambulate without assistance. She has swelling in the left foot as well. PAST MEDICAL HISTORY: Prior radiotherapy history as noted above, GERD, hypertension, gastric ulcer. PAST SURGICAL HISTORY: Cholecystectomy, hysterectomy, upper and lower GI endoscopy 2 years ago. ALLERGIES: No known drug allergies. CURRENT MEDICATIONS: Lidoderm patch, ceftriaxone, Neurontin, Elavil, Xanax, Toprol-XL, MiraLAX, Decadron, Zantac, MS Contin b.i.d., oxycodone p.r.n., Carafate, hydrochlorothiazide. SOCIAL HISTORY: Lives with her daughter, does not smoke or consume alcohol. PHYSICAL EXAMINATION: General: Appearing her chronological age, in no acute distress, sitting on the hospital bed. Vital Signs: Temperature 98.3, blood pressure 120/67, pulse 86, respiratory rate 18, SaO2 of 100% on room air. HEENT: Normocephalic, atraumatic. Moist mucous membranes. Anicteric sclerae. Clear oral cavity. Neck: Palpable tenderness in the posterior neck. Mild hyperpigmentation in the treatment field. No adenopathy or neck mass. Chest: Lungs are clear. Cardiovascular: Regular. Abdomen: Soft, nontender, nondistended. Extremities: Nearly full range of motion in the right shoulder. Mild crepitus on abduction. Swollen left distal thigh, knee and foot. No calf tenderness. Range of motion limited due to swelling. Neurologic: Grossly nonfocal. RADIOLOGIC DATA: See HPI. LABORATORY DATA: WBC 4.8, hemoglobin 8.0, platelets 129,000. Electrolytes within normal limits. BUN 9.8, creatinine 0.8. Calcium 7.9. Alkaline phosphatase 436. Liver function tests otherwise normal. Albumin 2.6. Blood culture on October 02, 2018: Streptococcus agalactiae (group B). Blood culture on October 06, 2018: No growth to date. IMPRESSION: Progressive metastatic breast cancer status post chemotherapy and radiation therapy with progressive disease in the left lower extremity associated with a pathologic fracture of the distal left femur, and additional disease in the left tibia. I agree with proceeding with surgical stabilization as needed as per orthopedic surgery. We can consider postoperative radiation treatment following her recovery. I spoke to her this morning and she seems to be leaning towards having surgery. She will further discuss with her daughter. Thank you for the courtesy of this consultation. ИВАН MORA M.D. [id number] MTDD
[2018-10-11] MEDS: AMITRIPTYLINE HCL 25 MG TABLET (FP) PO SCH (22:12)
[2018-10-11] MEDS: ALPRAZolam 2 MG TABLET PO SCH (22:13)
[2018-10-11] MEDS: LIDOCAINE PATCH REMOVAL MC SCH (22:13)
[2018-10-12] MEDS: GABAPENTIN 300 MG CAPSULE (FP) PO SCH ×3 (05:34→23:05)
[2018-10-12] MEDS: oxyCODONE HCL 5 MG TABLET PO PRN ×2 (06:26→15:20)
[2018-10-12 07:43] LABS: BASO % 0.5 % (0-2.0); EOS % 0.3 % (0-4.5); HEMATOCRIT 25.8 % (32.4-45.2); HEMOGLOBIN 8.9 GM/dL (10.7-15.3); LYMPH % 15.9 % (8-40); MCH 29.7 pg (25.7-33.7); MCHC 34.3 g/dl (32.0-36.0); MEAN CELL VOLUME 86.5 fl (80-96); MEAN PLT VOLUME 6.8 fl (7.5-11.1); MONO % 7.8 % (3.8-10.2); NEUT % 75.5 % (42.8-82.8); PLATELET COUNT 138 K/MM3 (134-434); RBC 2.98 M/mm3 (3.60-5.2); RDW 17.5 % (11.6-15.6); WHITE BLOOD COUNT 5.6 K/mm3 (4.0-10.0)
[2018-10-12 07:45] LABS: ALBUMIN 2.6 g/dl (3.4-5.0); BILIRUBIN,TOTAL 0.5 mg/dL (0.2-1); BLOOD UREA NITROGEN 8.9 mg/dL (7-18); CALCIUM 7.3 mg/dL (8.5-10.1); CREATININE 0.6 mg/dL (0.55-1.3); POTASSIUM 3.8 mmol/L (3.5-5.1); TOT PROT 5.2 g/dl (6.4-8.2)
[2018-10-12] MEDS ORDERED: DEXTROSE 5%-WATER 100 ML IVPB ONE (09:00)
[2018-10-12] MEDS: CEFTRIAXONE 2 GM in DEXTROSE 5%-WATER 100 ML IVPB SCH (09:21)
[2018-10-12] MEDS: metoPROLOL SUCCINATE 25 MG TAB.SR.24H (FP) PO SCH (09:21)
[2018-10-12] MEDS: HYDROCHLOROTHIAZIDE 12.5 MG CAPSULE (FP) PO SCH (09:21)
[2018-10-12] MEDS: RANITIDINE HCL 150 MG TABLET (FP) PO SCH ×2 (09:21→23:05)
[2018-10-12] MEDS: SUCRALFATE 1 GM/10 ML UNIT DOSE CUPS PO SCH ×4 (09:21→23:05)
[2018-10-12] MEDS: DEXAMETHASONE 4 MG TABLET (FP) PO SCH (09:21)
[2018-10-12] MEDS: LIDOCAINE 5% TOPICAL PATCH TP SCH (11:48)
[2018-10-12] MEDS: POLYETHYLENE GLYCOL 3350 119 GM BTL PO SCH ×2 (11:48→23:06)
[2018-10-12] MEDS: morphine SO4 SUSTAINED ACTING 15 MG TABLET.SA PO SCH ×2 (11:48→23:05)
[2018-10-12 13:09] LABS: ANISOCYTOSIS 1+; MACROCYTOSIS 0; PLATELET ESTIMATE DECREASED; TEAR DROP CELLS 1+
--- NOTE | 2018-10-12 14:26 | PN ---
Progress Note (short form) - Note Progress Note: has pain in left knee- left leg is swollen Vital Signs - 24 hr 10/11/18 10/11/18 10/11/18 15:30 17:46 21:00 Temperature 98.6 F 98.6 F Pulse Rate 87 85 Respiratory 20 20 Rate Blood Pressure 125/66 135/73 O2 Sat by Pulse 100 Oximetry (%) 10/11/18 10/12/18 10/12/18 23:00 05:00 09:00 Temperature 98.5 F 98.4 F Pulse Rate 88 81 Respiratory 20 20 20 Rate Blood Pressure 130/75 98/52 L O2 Sat by Pulse 100 Oximetry (%) 10/12/18 11:00 Temperature 98.6 F Pulse Rate 82 Respiratory 20 Rate Blood Pressure 129/72 O2 Sat by Pulse Oximetry (%) Current Medications Generic Name Dose Route Start Last Admin Trade Name Freq PRN Reason Stop Dose Admin Alprazolam 1 mg 10/10/18 01:30 10/11/18 22:13 Xanax - PO 1 mg HS [facility] Administration Amitriptyline HCl 25 mg 10/02/18 22:00 10/11/18 22:12 Elavil - PO 25 mg HS [facility] Administration Dexamethasone 2 mg 10/02/18 14:45 10/12/18 09:21 Decadron - PO 2 mg DAILY [facility] Administration Gabapentin 300 mg 10/02/18 06:00 10/12/18 05:34 Neurontin - PO 300 mg TID [facility] Administration Hydrochlorothiazide 12.5 mg 10/10/18 11:15 10/12/18 09:21 Hctz - PO 12.5 mg DAILY [facility] Administration Ceftriaxone Sodium 2 gm/ 100 mls @ 200 mls/hr 10/05/18 10:00 10/12/18 09:21 Dextrose IVPB 200 mls/hr DAILY [facility] Administration Protocol Lidocaine 1 patch 10/06/18 14:00 10/12/18 11:48 Lidoderm Patch - TP 1 patch DAILY [facility] Administration Metoprolol Succinate 25 mg 10/02/18 10:00 10/12/18 09:21 Toprol Xl - PO 25 mg DAILY [facility] Administration Miscellaneous 1 each 10/06/18 22:00 10/11/18 22:13 Lidoderm Patch Removal MC 1 each DAILY@2200 [facility] Administration Morphine Sulfate 15 mg 10/02/18 10:00 10/12/18 11:48 Ms Contin - PO 15 mg BID [facility] Administration Oxycodone HCl 10 mg 10/11/18 12:17 10/12/18 06:26 Roxicodone - PO 10 mg Q6H PRN Administration PAIN LEVEL 6-10 Polyethylene Glycol 17 gm 10/04/18 15:45 10/12/18 11:48 Miralax (For Daily Use) - PO Not Given BID [facility] Ranitidine HCl 150 mg 10/02/18 02:45 10/12/18 09:21 Zantac - PO 150 mg BID [facility] Administration Sucralfate 1 gm 10/05/18 18:00 10/12/18 09:21 Carafate Oral Suspension - PO 1 gm QID [facility] Administration Laboratory Results - last 24 hr 10/10/18 10/12/18 10/12/18 07:00 06:15 06:15 WBC 5.6 RBC 2.98 L Hgb 8.9 L Hct 25.8 L MCV 86.5 MCH 29.7 MCHC 34.3 RDW 17.5 H Plt Count 138 MPV 6.8 L Absolute Neuts (auto) 4.2 Neutrophils % 75.5 Neutrophils % (Manual) 67.4 Band Neutrophils % 9.2 Lymphocytes % 15.9 Lymphocytes % (Manual) 11.2 Monocytes % 7.8 Monocytes % (Manual) 10 Eosinophils % 0.3 Eosinophils % (Manual) 0.0 Basophils % 0.5 Basophils % (Manual) 0.0 Myelocytes % (Man) 1 D Promyelocytes % (Man) 0 Blast Cells % (Manual) 0 Nucleated RBC % 3 H Metamyelocytes 1 D Hypochromia 0 Platelet Estimate Decreased Polychromasia 1+ Poikilocytosis 0 Anisocytosis 1+ Microcytosis 1+ Macrocytosis 0 Tear Drop Cells 1+ Sodium 139 Potassium 3.8 Chloride 107 Carbon Dioxide 26 Anion Gap 7 L BUN 8.9 Creatinine 0.6 Est GFR (CKD-EPI)AfAm 110.08 Est GFR (CKD-EPI)NonAf 94.98 Random Glucose 79 Calcium 7.3 L Total Bilirubin 0.5 AST 14 L ALT 31 Alkaline Phosphatase 476 H Total Protein 5.2 L Albumin 2.6 L Blood Type A POSITIVE Antibody Screen Negative Crossmatch See Detail S1 S2 RRR Lungs clear Abd- soft, NT edema left leg, left knee warm+ PLAN HB better-- s/p PRBC yesterday x 1 has pathological fracture distal left knee ?going for surgery tomorrow- ORIF iv antibiotics per ID-- 4 weeks pain control OOB daily Problem List - Problems (1) Fever Code(s): R50.9 - FEVER, UNSPECIFIED Qualifiers: Fever type: unspecified Qualified Code(s): R50.9 - Fever, unspecified (2) Hyperbilirubinemia Code(s): E80.6 - OTHER DISORDERS OF BILIRUBIN METABOLISM (3) Hyponatremia Code(s): E87.1 - HYPO-OSMOLALITY AND HYPONATREMIA (4) Neutropenic fever Code(s): D70.9 - NEUTROPENIA, UNSPECIFIED; R50.81 - FEVER PRESENTING WITH CONDITIONS CLASSIFIED ELSEWHERE (5) Neutropenic sepsis Code(s): A41.9 - SEPSIS, UNSPECIFIED ORGANISM; D70.9 - NEUTROPENIA, UNSPECIFIED (6) Pancytopenia Code(s): D61.818 - OTHER PANCYTOPENIA (7) Rectal bleeding Code(s): K62.5 - HEMORRHAGE OF ANUS AND RECTUM (8) Systemic inflammatory response syndrome (SIRS) Code(s): R65.10 - SIRS OF NON-INFECTIOUS ORIGIN W/O ACUTE ORGAN DYSFUNCTION (9) Metastatic breast cancer Code(s): C50.919 - MALIGNANT NEOPLASM OF UNSP SITE OF UNSPECIFIED FEMALE BREAST
--- NOTE | 2018-10-12 15:31 | PN ---
Progress Note (short form) - Note Progress Note: AFTER DISCUSION WITH DR PABON, WE WILL PROCEED WITH LEFT DISTAL FEMORAL REPLACEMENT THIS THURSDAY AFTER THE PATIENT WILL HAVE BEEN ON IV ABX X 2 WEEKS. SPECIAL EQUIPMENT ORDERED IN TO PROCEED WITH THIS SURGERY ON THURSDAY
--- NOTE | 2018-10-12 16:09 | PN ---
Progress Note, Physician History of Present Illness: OOB IN CHAIR C/O L KNEE PAIN NO F/C - Current Medication List Current Medications: Active Medications Alprazolam (Xanax -) 1 mg PO HS [facility] Last Admin: 10/11/18 22:13 Dose: 1 mg Amitriptyline HCl (Elavil -) 25 mg PO HS [facility] Last Admin: 10/11/18 22:12 Dose: 25 mg Dexamethasone (Decadron -) 2 mg PO DAILY [facility] Last Admin: 10/12/18 09:21 Dose: 2 mg Gabapentin (Neurontin -) 300 mg PO TID [facility] Last Admin: 10/12/18 14:32 Dose: 300 mg Hydrochlorothiazide (Hctz -) 12.5 mg PO DAILY [facility] Last Admin: 10/12/18 09:21 Dose: 12.5 mg Ceftriaxone Sodium 2 gm/ (Dextrose) 100 mls @ 200 mls/hr IVPB DAILY [facility]; Protocol Last Admin: 10/12/18 09:21 Dose: 200 mls/hr Lidocaine (Lidoderm Patch -) 1 patch TP DAILY [facility] Last Admin: 10/12/18 11:48 Dose: 1 patch Metoprolol Succinate (Toprol Xl -) 25 mg PO DAILY [facility] Last Admin: 10/12/18 09:21 Dose: 25 mg Miscellaneous (Lidoderm Patch Removal) 1 each MC DAILY@2200 [facility] Last Admin: 10/11/18 22:13 Dose: 1 each Morphine Sulfate (Ms Contin -) 15 mg PO BID [facility] Last Admin: 10/12/18 11:48 Dose: 15 mg Oxycodone HCl (Roxicodone -) 10 mg PO Q4H PRN PRN Reason: PAIN LEVEL 6-10 Last Admin: 10/12/18 15:20 Dose: 10 mg Polyethylene Glycol (Miralax (For Daily Use) -) 17 gm PO BID [facility] Last Admin: 10/12/18 11:48 Dose: Not Given Ranitidine HCl (Zantac -) 150 mg PO BID [facility] Last Admin: 10/12/18 09:21 Dose: 150 mg Sucralfate (Carafate Oral Suspension -) 1 gm PO QID [facility] Last Admin: 10/12/18 14:32 Dose: 1 gm - Objective Vital Signs: Vital Signs Temperature 98.4 F 10/12/18 15:18 Pulse Rate 83 10/12/18 15:18 Respiratory Rate 20 10/12/18 15:18 Blood Pressure 138/66 10/12/18 15:18 O2 Sat by Pulse Oximetry (%) 100 10/12/18 09:00 Constitutional: Yes: No Distress Cardiovascular: Yes: Regular Rate and Rhythm, S1, S2 Respiratory: Yes: CTA Bilaterally Gastrointestinal: Yes: Normal Bowel Sounds, Soft. No: Tenderness Extremities: Yes: Other (l knee swelling) Labs: CBC, BMP 10/12/18 06:15 10/12/18 06:15 INR, PTT INR 0.97 (0.83-1.09) 10/10/18 07:00 Assessment/Plan GRP B STREP BACTEREMIA R FEMUR FRACTURE S/P NEUTROPENIC FEVER METASTATIC BREAST CA CONTINUE CEFTRIAXONE DISCUSSED WITH WITH DR PASCUAL
--- NOTE | 2018-10-12 18:37 | PN ---
Progress Note (short form) - Note Progress Note: Patient seen and examined X-rays and discussion with radiology, ,Dr. Taveras, orthopedics, Dr. Harman, medicine , Dr. Canchola. Have spoken with patient and daughter , Tanna. Complicated case from technical point of view, as well as philosophical point of view. Patient is aware that best chance for future ambulation is for surgery. Extensive tumor in distal femur and proximal tibia make anchoring of prosthesis potentially problematic. Weakened status , prior chemotherapy sedentary status make patient at increased risk for post op complications,- such as pneumonia, , P.E. etc. Second opinion is to be done. Alternative institution considered, but patient is quite comfortable at [facility] and prefers to stay. Cardiology, pulmonary evaluations prior to surgery. In all, > 60 minutes involved in this patients care.
[2018-10-12] MEDS: ALPRAZolam 2 MG TABLET PO SCH (23:05)
[2018-10-12] MEDS: AMITRIPTYLINE HCL 25 MG TABLET (FP) PO SCH (23:06)
[2018-10-12] MEDS: LIDOCAINE PATCH REMOVAL MC SCH (23:06)
[2018-10-13] MEDS: GABAPENTIN 300 MG CAPSULE (FP) PO SCH ×3 (05:47→21:35)
[2018-10-13] MEDS: oxyCODONE HCL 5 MG TABLET PO PRN ×2 (06:24→14:37)
[2018-10-13 08:14] LABS: ALBUMIN 1.8 g/dl (3.4-5.0); BILIRUBIN,TOTAL 0.4 mg/dL (0.2-1); BLOOD UREA NITROGEN 6.8 mg/dL (7-18); CREATININE 0.4 mg/dL (0.55-1.3)
[2018-10-13 08:16] LABS: BASO % 0.7 % (0-2.0); EOS % 0.3 % (0-4.5); HEMATOCRIT 26.5 % (32.4-45.2); HEMOGLOBIN 9.1 GM/dL (10.7-15.3); LYMPH % 17.1 % (8-40); MCH 29.8 pg (25.7-33.7); MCHC 34.3 g/dl (32.0-36.0); MEAN PLT VOLUME 7.1 fl (7.5-11.1); MONO % 9.7 % (3.8-10.2); NEUT % 72.2 % (42.8-82.8); PLATELET COUNT 153 K/MM3 (134-434); RBC 3.05 M/mm3 (3.60-5.2); RDW 17.8 % (11.6-15.6); WHITE BLOOD COUNT 5.6 K/mm3 (4.0-10.0)
[2018-10-13 08:29] LABS: CALCIUM 5.4 mg/dL (8.5-10.1); POTASSIUM 2.7 mmol/L (3.5-5.1)
[2018-10-13] MEDS ORDERED: DEXTROSE 5%-WATER 100 ML IVPB ONE (08:59)
[2018-10-13] MEDS: morphine SO4 SUSTAINED ACTING 15 MG TABLET.SA PO SCH ×2 (09:56→21:34)
[2018-10-13] MEDS: RANITIDINE HCL 150 MG TABLET (FP) PO SCH ×2 (09:56→21:36)
[2018-10-13] MEDS: DEXAMETHASONE 4 MG TABLET (FP) PO SCH (09:56)
[2018-10-13] MEDS: metoPROLOL SUCCINATE 25 MG TAB.SR.24H (FP) PO SCH (09:58)
[2018-10-13] MEDS: CEFTRIAXONE 2 GM in DEXTROSE 5%-WATER 100 ML IVPB SCH (09:58)
[2018-10-13] MEDS: SUCRALFATE 1 GM/10 ML UNIT DOSE CUPS PO SCH ×4 (09:58→21:34)
[2018-10-13] MEDS: POLYETHYLENE GLYCOL 3350 119 GM BTL PO SCH ×2 (10:15→21:34)
[2018-10-13] MEDS: LIDOCAINE 5% TOPICAL PATCH TP SCH (10:21)
[2018-10-13 10:33] LABS: ANISOCYTOSIS 1+; MACROCYTOSIS 0; PLATELET ESTIMATE NORMAL; TEAR DROP CELLS 1+
[2018-10-13 11:56] LABS: BLOOD UREA NITROGEN 11.9 mg/dL (7-18); CALCIUM 7.9 mg/dL (8.5-10.1); CREATININE 0.8 mg/dL (0.55-1.3); POTASSIUM 3.7 mmol/L (3.5-5.1)
--- NOTE | 2018-10-13 12:06 | PN ---
Progress Note (short form) - Note Progress Note: Ortho Pt seen and examined with Dr. Harman s/p left pathologic distal femur fx Selected Entries 10/13/18 06:00 Temperature 97.5 F L Pulse Rate 76 Respiratory 20 Rate Blood Pressure 124/70 Laboratory Tests 10/05/18 08:50 Synovial Source Synovial Synovial WBC 15593 Synovial RBC 4854 Synovial Neutrophils 90 Synovial Lymphocytes 3 Synovial Monocytes 7 Synovial Crystals Negative + swelling, + ttp, decr rom, nvi synovial fluid culture neg a/p Risks and benefits were d/w pt in detail OR tentatively scheduled for Thursday afternoon Pt to have second opinion with Dr. Ny seen with Dr. Harman
--- NOTE | 2018-10-13 12:25 | CON.CARD ---
Consult Consult Specialty:: Cardiology Referred by:: Delaney Canchola MD Reason for Consultation:: Pre-op evaluation - History of Present Illness Chief Complaint: Left knee pain History of Present Illness: 68F w/ ER/LA positive, 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 Found to have strep agalactiae bacteremia. On Rocephin and remains afebrile >24 hours. Repeat blood cultures NGTD. Responded well to PRBC with no further bloody BMs. Left distal femur left knee pathologic fracture due to mets. Had prior RT. Plan for possible OR for ORIF. Regarding cardiovascular symptoms, denies chest pain, dyspnea, near or true syncope, palpitations, orthopnea, PND, or LE edema. - History Source History Provided By: Patient Limitations to Obtaining History: No Limitations - Past Medical History Cardio/Vascular: Yes: HTN Gastrointestinal: Yes: GERD Psych: Yes: Anxiety - Past Surgical History Past Surgical History: Yes: Cholecystectomy, Hysterectomy - Alcohol/Substance Use Hx Alcohol Use: No History of Substance Use: reports: None - Smoking History Smoking history: Never smoked Have you smoked in the past 12 months: No - Social History Usual Living Arrangement: With Child ADL: Independent History of Recent Travel: No Home Medications - Allergies Allergies/Adverse Reactions: Allergies Allergy/AdvReac Type Severity Reaction Status Date / Time No Known Drug Allergies Allergy Verified 10/01/18 23:17 - Home Medications Home Medications: Ambulatory Orders Alprazolam [Xanax] 1 mg PO HS 05/30/17 Gabapentin 300 mg PO TID 05/30/17 Lisinopril/Hydrochlorothiazide [Lisinopril-Hctz 10-12.5 mg Tab] 1 each PO DAILY 05/30/17 Metoprolol Succinate [Toprol Xl] 25 mg PO DAILY 05/30/17 Tramadol HCl 50 mg PO PRN 05/30/17 Oxycodone HCl/Acetaminophen [Oxycodon-Acetaminophen 7.5-325] 1 each PO Q4H PRN 02/05/18 Famotidine [Pepcid] 20 mg PO BID #60 tablet 02/21/18 Lactobacillus Acidophilus [Bacid -] 1 tab PO DAILY #30 tab 02/21/18 Amitriptyline HCl [Elavil -] 25 mg PO HS #30 tablet 05/13/18 Family Disease History - Family Disease History Family Disease History: CA: Brother, Sister Review of Systems - Review of Systems Musculoskeletal: reports: Joint Pain (Left knee) Vital Signs: Vital Signs Temperature 97.5 F L 10/13/18 06:00 Pulse Rate 76 10/13/18 06:00 Respiratory Rate 20 10/13/18 06:00 Blood Pressure 124/70 10/13/18 06:00 O2 Sat by Pulse Oximetry (%) 100 10/13/18 09:00 Constitutional: Yes: No Distress, Calm Neck: Yes: Supple Respiratory: Yes: Regular, CTA Bilaterally Gastrointestinal: Yes: Normal Bowel Sounds, Soft Cardiovascular: Yes: Regular Rate and Rhythm JVD: No Carotid Bruit: No Heart Sounds: Yes: S1, S2 Musculoskeletal: Yes: Joint Swelling (Left knee effusion) Edema: No - Other Data Labs, Other Data: CBC, BMP 10/13/18 06:30 10/13/18 10:50 INR, PTT INR 0.97 (0.83-1.09) 10/10/18 07:00 NSR @ 93 Ejection Fraction %: LVEF > or = 40 % Imaging - Results Chest X-ray: Report Reviewed (NAD) MRI: Report Reviewed (Left supratellar joint effusion with diffuse distal femur and prox tibial mets and pathologic fracture) Problem List - Problems (1) Pathologic fracture Code(s): M84.40XA - PATHOLOGICAL FRACTURE, UNSP SITE, INIT ENCNTR FOR FRACTURE Qualifiers: Pathology associated with fracture: neoplastic disease Site of pathological fracture: femur Encounter type: subsequent encounter Laterality : left (2) Preoperative cardiovascular examination Code(s): Z01.810 - ENCOUNTER FOR PREPROCEDURAL CARDIOVASCULAR EXAMINATION (3) Rectal bleeding Code(s): K62.5 - HEMORRHAGE OF ANUS AND RECTUM (4) Metastatic breast cancer Code(s): C50.919 - MALIGNANT NEOPLASM OF UNSP SITE OF UNSPECIFIED FEMALE BREAST (5) Cancer, metastatic to bone Code(s): C79.51 - SECONDARY MALIGNANT NEOPLASM OF BONE (6) HTN (hypertension) Code(s): I10 - ESSENTIAL (PRIMARY) HYPERTENSION Qualifiers: Hypertension type: essential hypertension Qualified Code(s): I10 - Essential (primary) hypertension (7) Pain from bone metastases Code(s): G89.3 - NEOPLASM RELATED PAIN (ACUTE) (CHRONIC); C79.51 - SECONDARY MALIGNANT NEOPLASM OF BONE Assessment/Plan 10/04/2018 Normal LV size and fxn, LVEF 65-70%, normal atrial sizes bilaterally , mild AR, LA, MR, TR RVSP 37 mmHg 1. Pre-op CV evaluation prior to ORIF left distal femur and prox tibial pathologic fracture with mets 2. Metastatic breast cancer 3. Hypertension 4. Group B strep bacteremia with clearance 5. Anemia post transfusion P:1. Given absence of sxs of acute coronary syndrome, decompensated CHF or malignant arrhythmia, may proceed with ORIF from CV standpoint w/o further testing. 2. Monitor Hgb post transfusion 3. Continue Zesteretic 10/12.5 qd, Toprol XL 25 qd 4. IV antibiotics per ID-- 4 weeks 5. Analgesia as needed, DVT prophylaxis 6. Thank you for consultative opportunity
--- NOTE | 2018-10-13 13:39 | PN ---
Progress Note (short form) - Note Progress Note: has pain in left knee- left leg is swollen family at bedside Vital Signs - 24 hr 10/12/18 10/12/18 10/12/18 15:18 18:00 21:00 Temperature 98.4 F 98.3 F Pulse Rate 83 77 Respiratory 20 20 Rate Blood Pressure 138/66 134/71 O2 Sat by Pulse 100 Oximetry (%) 10/12/18 10/13/18 10/13/18 22:00 06:00 09:00 Temperature 98.3 F 97.5 F L Pulse Rate 70 76 Respiratory 20 20 Rate Blood Pressure 133/79 124/70 O2 Sat by Pulse 100 Oximetry (%) Current Medications Generic Name Dose Route Start Last Admin Trade Name Freq PRN Reason Stop Dose Admin Alprazolam 1 mg 10/10/18 01:30 10/12/18 23:05 Xanax - PO 1 mg HS CARTER Administration Amitriptyline HCl 25 mg 10/02/18 22:00 10/12/18 23:06 Elavil - PO 25 mg HS CARTER Administration Dexamethasone 2 mg 10/02/18 14:45 10/13/18 09:56 Decadron - PO 2 mg DAILY CARTER Administration Gabapentin 300 mg 10/02/18 06:00 10/13/18 05:47 Neurontin - PO 300 mg TID CARTER Administration Hydrochlorothiazide 12.5 mg 10/10/18 11:15 10/12/18 09:21 Hctz - PO 12.5 mg DAILY CARTER Administration Ceftriaxone Sodium 2 gm/ 100 mls @ 200 mls/hr 10/05/18 10:00 10/13/18 09:58 Dextrose IVPB 200 mls/hr DAILY CARTER Administration Protocol Lidocaine 1 patch 10/06/18 14:00 10/13/18 10:21 Lidoderm Patch - TP 1 patch DAILY CARTER Administration Metoprolol Succinate 25 mg 10/02/18 10:00 10/13/18 09:58 Toprol Xl - PO 25 mg DAILY CARTER Administration Miscellaneous 1 each 10/06/18 22:00 10/12/18 23:06 Lidoderm Patch Removal MC 1 each DAILY@2200 CARTER Administration Morphine Sulfate 15 mg 10/02/18 10:00 10/13/18 09:56 Ms Contin - PO 15 mg BID CARTER Administration Oxycodone HCl 10 mg 10/12/18 14:26 10/13/18 06:24 Roxicodone - PO 10 mg Q4H PRN Administration PAIN LEVEL 6-10 Polyethylene Glycol 17 gm 10/04/18 15:45 10/13/18 10:15 Miralax (For Daily Use) - PO 17 gm BID CARTER Administration Ranitidine HCl 150 mg 10/02/18 02:45 10/13/18 09:56 Zantac - PO 150 mg BID CARTER Administration Sucralfate 1 gm 10/05/18 18:00 10/13/18 09:58 Carafate Oral Suspension - PO 1 gm QID CARTER Administration Laboratory Results - last 24 hr 10/12/18 10/13/18 10/13/18 06:15 06:30 06:30 WBC 5.6 RBC 3.05 L Hgb 9.1 L Hct 26.5 L MCV 87.0 MCH 29.8 MCHC 34.3 RDW 17.8 H Plt Count 153 MPV 7.1 L Absolute Neuts (auto) 4.0 Neutrophils % 72.2 Neutrophils % (Manual) 67.4 68.4 Band Neutrophils % 9.2 9.2 Lymphocytes % 17.1 Lymphocytes % (Manual) 11.2 7.1 L D Monocytes % 9.7 Monocytes % (Manual) 10 12 H Eosinophils % 0.3 Eosinophils % (Manual) 0.0 0.0 Basophils % 0.7 Basophils % (Manual) 0.0 0.0 Myelocytes % (Man) 1 D 3 H D Promyelocytes % (Man) 0 0 Blast Cells % (Manual) 0 0 Nucleated RBC % 3 H Metamyelocytes 1 D 0 D Hypochromia 0 0 Platelet Estimate Decreased Normal Polychromasia 1+ 1+ Poikilocytosis 0 0 Anisocytosis 1+ 1+ Microcytosis 1+ 1+ Macrocytosis 0 0 Tear Drop Cells 1+ 1+ Sodium 148 H Potassium 2.7 L* Chloride 118 H Carbon Dioxide 21 Anion Gap 9 BUN 6.8 L Creatinine 0.4 L Est GFR (CKD-EPI)AfAm 125.79 Est GFR (CKD-EPI)NonAf 108.54 Random Glucose 53 L Calcium 5.4 L* Total Bilirubin 0.4 AST 9 L ALT 20 Alkaline Phosphatase 331 H Total Protein 4.0 L Albumin 1.8 L 10/13/18 10:50 WBC RBC Hgb Hct MCV MCH MCHC RDW Plt Count MPV Absolute Neuts (auto) Neutrophils % Neutrophils % (Manual) Band Neutrophils % Lymphocytes % Lymphocytes % (Manual) Monocytes % Monocytes % (Manual) Eosinophils % Eosinophils % (Manual) Basophils % Basophils % (Manual) Myelocytes % (Man) Promyelocytes % (Man) Blast Cells % (Manual) Nucleated RBC % Metamyelocytes Hypochromia Platelet Estimate Polychromasia Poikilocytosis Anisocytosis Microcytosis Macrocytosis Tear Drop Cells Sodium 139 Potassium 3.7 Chloride 104 Carbon Dioxide 27 Anion Gap 7 L BUN 11.9 Creatinine 0.8 Est GFR (CKD-EPI)AfAm 89.04 Est GFR (CKD-EPI)NonAf 76.83 Random Glucose 164 H Calcium 7.9 L Total Bilirubin AST ALT Alkaline Phosphatase Total Protein Albumin S1 S2 RRR Lungs clear Abd- soft, NT edema left leg, left knee warm+ PLAN spoke with Dr Galvan- oncology and DR Harman - ortho yesterday awaiting second opinion - Dr Mino Ny Pt is comfortable here but I did advise to consider another institution Pain control is important here as well as her ambulatory status she will need to continue with iv antibiotics per ID surgery planned for Thursday pending second opinion Pulmonary and cardiology has cleared the patient discussed with pt and family in detail, discussed with staff -- time spent 45 min Problem List - Problems (1) Fever Code(s): R50.9 - FEVER, UNSPECIFIED Qualifiers: Fever type: unspecified Qualified Code(s): R50.9 - Fever, unspecified (2) Hyperbilirubinemia Code(s): E80.6 - OTHER DISORDERS OF BILIRUBIN METABOLISM (3) Hyponatremia Code(s): E87.1 - HYPO-OSMOLALITY AND HYPONATREMIA (4) Neutropenic fever Code(s): D70.9 - NEUTROPENIA, UNSPECIFIED; R50.81 - FEVER PRESENTING WITH CONDITIONS CLASSIFIED ELSEWHERE (5) Neutropenic sepsis Code(s): A41.9 - SEPSIS, UNSPECIFIED ORGANISM; D70.9 - NEUTROPENIA, UNSPECIFIED (6) Pancytopenia Code(s): D61.818 - OTHER PANCYTOPENIA (7) Rectal bleeding Code(s): K62.5 - HEMORRHAGE OF ANUS AND RECTUM (8) Systemic inflammatory response syndrome (SIRS) Code(s): R65.10 - SIRS OF NON-INFECTIOUS ORIGIN W/O ACUTE ORGAN DYSFUNCTION (9) Metastatic breast cancer Code(s): C50.919 - MALIGNANT NEOPLASM OF UNSP SITE OF UNSPECIFIED FEMALE BREAST (10) Pathologic fracture Code(s): M84.40XA - PATHOLOGICAL FRACTURE, UNSP SITE, INIT ENCNTR FOR FRACTURE Qualifiers: Pathology associated with fracture: neoplastic disease Site of pathological fracture: femur Encounter type: subsequent encounter Laterality : left
[2018-10-13] MEDS: HYDROCHLOROTHIAZIDE 12.5 MG CAPSULE (FP) PO SCH (14:38)
--- NOTE | 2018-10-13 14:46 | CON.PULM ---
Consult Consult Specialty:: PULMONARY Referred by:: Dr Canchola Reason for Consultation:: preop clearance - History of Present Illness Chief Complaint: fever History of Present Illness: 68yo female with h/o HTN, metastatic breast ca to bone who was admitted for fevers and diarrhea. Found to be bacteremic with group B strep. Found to have a left knee pathologic fracture, plan for OR for repair. Denies shortness of breath, cough or wheezing. No chest pain or discomfort. Prior to knee fracture, had unlimited exercise tolerance. No history of asthma or COPD. She is a never smoker. CXR on admission without acute findings. She does not snore, no witnessed apneas per family at bedside. No daytime somnolence. - History Source History Provided By: Patient, Family Member, Medical Record Limitations to Obtaining History: Language Barrier - Past Medical History Cardio/Vascular: Yes: HTN Gastrointestinal: Yes: GERD Psych: Yes: Anxiety - Past Surgical History Past Surgical History: Yes: Cholecystectomy, Hysterectomy - Alcohol/Substance Use Hx Alcohol Use: No History of Substance Use: reports: None - Smoking History Smoking history: Never smoked Have you smoked in the past 12 months: No - Social History Usual Living Arrangement: With Child ADL: Independent History of Recent Travel: No Home Medications - Allergies Allergies/Adverse Reactions: Allergies Allergy/AdvReac Type Severity Reaction Status Date / Time No Known Drug Allergies Allergy Verified 10/01/18 23:17 - Home Medications Home Medications: Ambulatory Orders Alprazolam [Xanax] 1 mg PO HS 05/30/17 Gabapentin 300 mg PO TID 05/30/17 Lisinopril/Hydrochlorothiazide [Lisinopril-Hctz 10-12.5 mg Tab] 1 each PO DAILY 05/30/17 Metoprolol Succinate [Toprol Xl] 25 mg PO DAILY 05/30/17 Tramadol HCl 50 mg PO PRN 05/30/17 Oxycodone HCl/Acetaminophen [Oxycodon-Acetaminophen 7.5-325] 1 each PO Q4H PRN 02/05/18 Famotidine [Pepcid] 20 mg PO BID #60 tablet 02/21/18 Lactobacillus Acidophilus [Bacid -] 1 tab PO DAILY #30 tab 02/21/18 Amitriptyline HCl [Elavil -] 25 mg PO HS #30 tablet 05/13/18 Family Disease History - Family Disease History Family Disease History: CA: Brother, Sister Review of Systems - Review of Systems Constitutional: reports: Fever. denies: Chills, Weakness Eyes: denies: Recent Change in Vision HENT: denies: Nasal Congestion, Throat Pain Neck: denies: Stiffness, Tenderness Cardiovascular: denies: Chest Pain, Edema, Palpitations, Shortness of Breath Respiratory: denies: Cough, Exercise Intolerance, Hemoptysis, SOB, Wheezing Gastrointestinal: denies: Abdominal Pain, Nausea, Vomiting Genitourinary: denies: Dysuria, Hematuria Neurological: denies: Dizziness, Headache Endocrine: denies: Unexplained Weight Loss Physical Exam Vital Sings: Vital Signs Temperature 97.5 F L 10/13/18 06:00 Pulse Rate 76 10/13/18 06:00 Respiratory Rate 20 10/13/18 06:00 Blood Pressure 124/70 10/13/18 06:00 O2 Sat by Pulse Oximetry (%) 100 10/13/18 09:00 Constitutional: Yes: Calm Eyes: Yes: Conjunctiva Clear, EOM Intact HENT: Yes: Atraumatic, Normocephalic Neck: Yes: Supple, Trachea Midline Cardiovascular: Yes: Regular Rate and Rhythm Respiratory: Yes: Diminished (decreased breath sounds at the bases) ...Clubbing: No Gastrointestinal: Yes: Normal Bowel Sounds, Soft. No: Tenderness Edema: No Neurological: Yes: Alert, Oriented Labs: CBC, BMP 10/13/18 06:30 10/13/18 10:50 Imaging - Results Chest X-ray: Report Reviewed, Image Reviewed (no infiltrates) Problem List - Problems (1) Pathologic fracture Code(s): M84.40XA - PATHOLOGICAL FRACTURE, UNSP SITE, INIT ENCNTR FOR FRACTURE Qualifiers: Pathology associated with fracture: neoplastic disease Site of pathological fracture: femur Encounter type: subsequent encounter Laterality : left (2) Metastatic breast cancer Code(s): C50.919 - MALIGNANT NEOPLASM OF UNSP SITE OF UNSPECIFIED FEMALE BREAST Assessment/Plan Pathologic Left Distal Femur/Proximal Tibial Fracture Metastatic Breast Ca Group B Strep Bacteremia HTN Anemia - continue antibiotics - no pulmonary contraindications to planned surgery - DVT prophylaxis Thank you for this consult Lupillo Bonilla MD
--- NOTE | 2018-10-13 14:51 | PN ---
Progress Note (short form) - Note Progress Note: continued knee pain no fevers or chills Vital Signs Period Temp Pulse Resp BP Sys/Nuñez Pulse Ox Last 24 Hr 97.5 F-98.4 F 70-83 20-20 124-138/66-79 100-100 no thrush cor-rrr lungs clear abd soft,nt ext left knee effusion/swellng unchanged, no erythema +port, no erythema CBC, BMP 10/13/18 06:30 10/13/18 10:50 Microbiology 10/06/18 09:20 Blood - Johann Cath Blood Culture - Final NO GROWTH AFTER 5 DAYS INCUBATION 10/06/18 08:45 Blood - Johann Cath Blood Culture - Final NO GROWTH AFTER 5 DAYS INCUBATION 10/03/18 11:45 Blood - Peripheral Venous Blood Culture - Final NO GROWTH AFTER 5 DAYS INCUBATION 10/03/18 11:45 Blood - Peripheral Venous Blood Culture - Final NO GROWTH AFTER 5 DAYS INCUBATION 10/05/18 08:50 Synovial Fluid - Knee Gram Stain - Final 10/05/18 08:50 Synovial Fluid - Knee Body Fluid Culture - Final NO GROWTH OF AEROBIC ORGANISMS AFTER 48 HOURS INCUBATION 10/05/18 08:50 Synovial Fluid - Knee Anaerobic Culture - Final NO ANAEROBES WERE ISOLATED 10/02/18 00:01 Blood - Peripheral Venous Blood Culture - Final Strep Agalactiae Group B 10/02/18 00:01 Blood - Peripheral Venous Blood Culture - Final Strep Agalactiae Group B 10/02/18 02:00 Urine - Urine Clean Catch Urine Culture - Final mri- with suprapatellar effusion, +bony metastatic disease, +fracture a/p bacteremia- group b strep plan 4 weeks of ceftriaxone knee pain- left pathologic femur fracture- awaiting second opinion s/p neutropenic fever history of metastatic breast cancer Problem List - Problems (1) Neutropenic fever Code(s): D70.9 - NEUTROPENIA, UNSPECIFIED; R50.81 - FEVER PRESENTING WITH CONDITIONS CLASSIFIED ELSEWHERE (2) Pancytopenia Code(s): D61.818 - OTHER PANCYTOPENIA (3) Rectal bleeding Code(s): K62.5 - HEMORRHAGE OF ANUS AND RECTUM
--- NOTE | 2018-10-13 16:48 | PN ---
Progress Note (short form) - Note Progress Note: Patient seen and examined Spoke with Dr. Canchola, patient with and son at bedside Option of surgery at tertiary [facility] discussed and patient is comfortable to having her surgery at [facility]. Cleared by all parties, ID, pulmonary, and cardiology. Last Vital Signs Temp Pulse Resp BP Pulse Ox 98.3 F 76 20 117/75 100 10/13/18 15:07 10/13/18 15:07 10/13/18 15:07 10/13/18 15:07 10/13/18 09:00 HEENT: GLADYS, EOM Intact Cor: RSR, No murmurs, No gallops Lungs: Clear to P&A Abd: Soft, Normal bowel sounds, No organomegaly Ext: edemasupre-patellar area Skin: No rashes, Integument intact CBC, BMP 10/13/18 06:30 10/13/18 10:50 Current Medications Generic Name Dose Route Start Last Admin Trade Name Freq PRN Reason Stop Dose Admin Alprazolam 1 mg 10/10/18 01:30 10/12/18 23:05 Xanax - PO 1 mg HS CARTER Administration Amitriptyline HCl 25 mg 10/02/18 22:00 10/12/18 23:06 Elavil - PO 25 mg HS CARTER Administration Dexamethasone 2 mg 10/02/18 14:45 10/13/18 09:56 Decadron - PO 2 mg DAILY CARTER Administration Gabapentin 300 mg 10/02/18 06:00 10/13/18 14:40 Neurontin - PO 300 mg TID CARTER Administration Hydrochlorothiazide 12.5 mg 10/10/18 11:15 10/13/18 14:38 Hctz - PO 12.5 mg DAILY CARTER Administration Ceftriaxone Sodium 2 gm/ 100 mls @ 200 mls/hr 10/05/18 10:00 10/13/18 09:58 Dextrose IVPB 200 mls/hr DAILY CARTER Administration Protocol Lidocaine 1 patch 10/06/18 14:00 10/13/18 10:21 Lidoderm Patch - TP 1 patch DAILY CARTER Administration Metoprolol Succinate 25 mg 10/02/18 10:00 10/13/18 09:58 Toprol Xl - PO 25 mg DAILY CARTER Administration Miscellaneous 1 each 10/06/18 22:00 10/12/18 23:06 Lidoderm Patch Removal MC 1 each DAILY@2200 CARTER Administration Morphine Sulfate 15 mg 10/02/18 10:00 10/13/18 09:56 Ms Contin - PO 15 mg BID CARTER Administration Oxycodone HCl 10 mg 10/12/18 14:26 10/13/18 14:37 Roxicodone - PO 10 mg Q4H PRN Administration PAIN LEVEL 6-10 Polyethylene Glycol 17 gm 10/04/18 15:45 10/13/18 10:15 Miralax (For Daily Use) - PO 17 gm BID CARTER Administration Ranitidine HCl 150 mg 10/02/18 02:45 10/13/18 09:56 Zantac - PO 150 mg BID CARTER Administration Sucralfate 1 gm 10/05/18 18:00 10/13/18 14:40 Carafate Oral Suspension - PO 1 gm QID CARTER Administration Impression: Metastatic brest ca Bone mets Need for surgical repair with left replacement Patient decided to have surgical procedure at Await second opinion. Strep bacteremia Anemia check coags.
[2018-10-13] MEDS: ALPRAZolam 2 MG TABLET PO SCH (21:35)
[2018-10-13] MEDS: AMITRIPTYLINE HCL 25 MG TABLET (FP) PO SCH (21:37)
[2018-10-13] MEDS: LIDOCAINE PATCH REMOVAL MC SCH (21:37)
[2018-10-14] MEDS: GABAPENTIN 300 MG CAPSULE (FP) PO SCH ×3 (05:52→21:14)
[2018-10-14 07:23] LABS: BASO % 0.5 % (0-2.0); EOS % 0.2 % (0-4.5); HEMATOCRIT 26.5 % (32.4-45.2); LYMPH % 16.7 % (8-40); MCH 29.8 pg (25.7-33.7); MEAN CELL VOLUME 87.6 fl (80-96); MEAN PLT VOLUME 6.9 fl (7.5-11.1); MONO % 10.9 % (3.8-10.2); NEUT % 71.7 % (42.8-82.8); PLATELET COUNT 161 K/MM3 (134-434); RBC 3.03 M/mm3 (3.60-5.2); RDW 17.8 % (11.6-15.6); WHITE BLOOD COUNT 5.1 K/mm3 (4.0-10.0)
[2018-10-14 07:49] LABS: INR 1.01 (0.83-1.09); PROTHROMBIN TIME (PATIENT) 11.9 SEC (9.7-13.0)
[2018-10-14 07:51] LABS: ACTIVATED PTT 56.1 SECONDS (25.2-36.5)
[2018-10-14 08:12] LABS: ALBUMIN 2.6 g/dl (3.4-5.0); BILIRUBIN,TOTAL 1.7 mg/dL (0.2-1); BLOOD UREA NITROGEN 14.6 mg/dL (7-18); CALCIUM 7.4 mg/dL (8.5-10.1); CREATININE 0.7 mg/dL (0.55-1.3); POTASSIUM 3.9 mmol/L (3.5-5.1); TOT PROT 5.6 g/dl (6.4-8.2)
[2018-10-14] MEDS ORDERED: DEXTROSE 5%-WATER 100 ML IVPB ONE (09:16)
[2018-10-14] MEDS: SUCRALFATE 1 GM/10 ML UNIT DOSE CUPS PO SCH ×4 (09:29→21:14)
[2018-10-14] MEDS: morphine SO4 SUSTAINED ACTING 15 MG TABLET.SA PO SCH ×2 (09:30→21:14)
[2018-10-14] MEDS: HYDROCHLOROTHIAZIDE 12.5 MG CAPSULE (FP) PO SCH (09:31)
[2018-10-14] MEDS: POLYETHYLENE GLYCOL 3350 119 GM BTL PO SCH ×2 (09:31→21:18)
[2018-10-14] MEDS: RANITIDINE HCL 150 MG TABLET (FP) PO SCH ×2 (09:31→21:14)
[2018-10-14] MEDS: LIDOCAINE 5% TOPICAL PATCH TP SCH (09:31)
[2018-10-14] MEDS: DEXAMETHASONE 4 MG TABLET (FP) PO SCH (09:31)
[2018-10-14] MEDS: CEFTRIAXONE 2 GM in DEXTROSE 5%-WATER 100 ML IVPB SCH (09:31)
[2018-10-14] MEDS: metoPROLOL SUCCINATE 25 MG TAB.SR.24H (FP) PO SCH (09:31)
--- NOTE | 2018-10-14 12:59 | PN ---
Progress Note, Physician History of Present Illness: Left knee pain referable to left distal femur left knee pathologic fracture due to mets. Had prior RT. Plan for possible OR for ORIF and await 2nd opinion. Regarding cardiovascular symptoms, denies chest pain, dyspnea, near or true syncope, palpitations, orthopnea, PND, or LE edema. - Current Medication List Current Medications: Active Medications Alprazolam (Xanax -) 1 mg PO HS [facility] Last Admin: 10/13/18 21:35 Dose: 1 mg Amitriptyline HCl (Elavil -) 25 mg PO HS [facility] Last Admin: 10/13/18 21:37 Dose: 25 mg Dexamethasone (Decadron -) 2 mg PO DAILY [facility] Last Admin: 10/14/18 09:31 Dose: 2 mg Gabapentin (Neurontin -) 300 mg PO TID [facility] Last Admin: 10/14/18 05:52 Dose: 300 mg Hydrochlorothiazide (Hctz -) 12.5 mg PO DAILY [facility] Last Admin: 10/14/18 09:31 Dose: 12.5 mg Ceftriaxone Sodium 2 gm/ (Dextrose) 100 mls @ 200 mls/hr IVPB DAILY [facility]; Protocol Last Admin: 10/14/18 09:31 Dose: 200 mls/hr Lidocaine (Lidoderm Patch -) 1 patch TP DAILY [facility] Last Admin: 10/14/18 09:31 Dose: 1 patch Metoprolol Succinate (Toprol Xl -) 25 mg PO DAILY [facility] Last Admin: 10/14/18 09:31 Dose: 25 mg Miscellaneous (Lidoderm Patch Removal) 1 each MC DAILY@2200 [facility] Last Admin: 10/13/18 21:37 Dose: 1 each Morphine Sulfate (Ms Contin -) 15 mg PO BID [facility] Last Admin: 10/14/18 09:30 Dose: 15 mg Oxycodone HCl (Roxicodone -) 10 mg PO Q4H PRN PRN Reason: PAIN LEVEL 6-10 Last Admin: 10/13/18 14:37 Dose: 10 mg Polyethylene Glycol (Miralax (For Daily Use) -) 17 gm PO BID [facility] Last Admin: 10/14/18 09:31 Dose: 17 gm Ranitidine HCl (Zantac -) 150 mg PO BID [facility] Last Admin: 10/14/18 09:31 Dose: 150 mg Sucralfate (Carafate Oral Suspension -) 1 gm PO QID [facility] Last Admin: 10/14/18 09:29 Dose: 1 gm - Objective Vital Signs: Vital Signs Temperature 98.6 F 10/14/18 10:00 Pulse Rate 79 10/14/18 10:00 Respiratory Rate 20 10/14/18 10:00 Blood Pressure 132/69 10/14/18 10:00 O2 Sat by Pulse Oximetry (%) 100 10/14/18 09:00 Constitutional: Yes: No Distress, Calm, Thin Neck: Yes: Supple Cardiovascular: Yes: Regular Rate and Rhythm Respiratory: Yes: Regular, CTA Bilaterally Gastrointestinal: Yes: Normal Bowel Sounds, Soft Edema: No Labs: CBC, BMP 10/14/18 06:05 10/14/18 06:05 INR, PTT INR 1.01 (0.83-1.09) 10/14/18 06:05 Problem List - Problems (1) Pathologic fracture Code(s): M84.40XA - PATHOLOGICAL FRACTURE, UNSP SITE, INIT ENCNTR FOR FRACTURE Qualifiers: Pathology associated with fracture: neoplastic disease Site of pathological fracture: femur Encounter type: subsequent encounter Laterality : left (2) Preoperative cardiovascular examination Code(s): Z01.810 - ENCOUNTER FOR PREPROCEDURAL CARDIOVASCULAR EXAMINATION (3) Rectal bleeding Code(s): K62.5 - HEMORRHAGE OF ANUS AND RECTUM (4) Metastatic breast cancer Code(s): C50.919 - MALIGNANT NEOPLASM OF UNSP SITE OF UNSPECIFIED FEMALE BREAST (5) Cancer, metastatic to bone Code(s): C79.51 - SECONDARY MALIGNANT NEOPLASM OF BONE (6) HTN (hypertension) Code(s): I10 - ESSENTIAL (PRIMARY) HYPERTENSION Qualifiers: Hypertension type: essential hypertension Qualified Code(s): I10 - Essential (primary) hypertension (7) Pain from bone metastases Code(s): G89.3 - NEOPLASM RELATED PAIN (ACUTE) (CHRONIC); C79.51 - SECONDARY MALIGNANT NEOPLASM OF BONE Assessment/Plan 10/04/2018 Normal LV size and fxn, LVEF 65-70%, normal atrial sizes bilaterally , mild AR, UT, MR, TR RVSP 37 mmHg 1. Pre-op CV evaluation prior to ORIF left distal femur and prox tibial pathologic fracture with mets 2. Metastatic breast cancer 3. Hypertension 4. Group B strep bacteremia with clearance 5. Anemia post transfusion P:1. Given absence of sxs of acute coronary syndrome, decompensated CHF or malignant arrhythmia, may proceed with ORIF from CV standpoint w/o further testing. 2. Monitor Hgb post transfusion 3. Continue Zesteretic 10/12.5 qd, Toprol XL 25 qd 4. IV antibiotics per ID-- 4 weeks 5. Analgesia as needed, DVT prophylaxis
[2018-10-14 13:20] LABS: ANISOCYTOSIS 1+; MACROCYTOSIS 0; PLATELET ESTIMATE NORMAL; TEAR DROP CELLS 1+
--- NOTE | 2018-10-14 13:27 | PN ---
Progress Note (short form) - Note Progress Note: has pain in left knee- left leg is swollen family at bedside Vital Signs - 24 hr 10/13/18 10/13/18 10/13/18 15:07 18:00 21:00 Temperature 98.3 F 98.2 F Pulse Rate 76 75 Respiratory 20 20 20 Rate Blood Pressure 117/75 143/77 O2 Sat by Pulse 100 Oximetry (%) 10/14/18 10/14/18 10/14/18 02:00 06:00 09:00 Temperature 97.9 F 97.6 F Pulse Rate 73 70 Respiratory 20 20 20 Rate Blood Pressure 120/62 129/76 O2 Sat by Pulse 100 Oximetry (%) 10/14/18 10:00 Temperature 98.6 F Pulse Rate 79 Respiratory 20 Rate Blood Pressure 132/69 O2 Sat by Pulse Oximetry (%) Current Medications Generic Name Dose Route Start Last Admin Trade Name Freq PRN Reason Stop Dose Admin Alprazolam 1 mg 10/10/18 01:30 10/13/18 21:35 Xanax - PO 1 mg HS CARTER Administration Amitriptyline HCl 25 mg 10/02/18 22:00 10/13/18 21:37 Elavil - PO 25 mg HS CARTER Administration Dexamethasone 2 mg 10/02/18 14:45 10/14/18 09:31 Decadron - PO 2 mg DAILY CARTER Administration Gabapentin 300 mg 10/02/18 06:00 10/14/18 05:52 Neurontin - PO 300 mg TID CARTER Administration Hydrochlorothiazide 12.5 mg 10/10/18 11:15 10/14/18 09:31 Hctz - PO 12.5 mg DAILY CARTER Administration Ceftriaxone Sodium 2 gm/ 100 mls @ 200 mls/hr 10/05/18 10:00 10/14/18 09:31 Dextrose IVPB 200 mls/hr DAILY CARTER Administration Protocol Lidocaine 1 patch 10/06/18 14:00 10/14/18 09:31 Lidoderm Patch - TP 1 patch DAILY CARTER Administration Metoprolol Succinate 25 mg 10/02/18 10:00 10/14/18 09:31 Toprol Xl - PO 25 mg DAILY CARTER Administration Miscellaneous 1 each 10/06/18 22:00 10/13/18 21:37 Lidoderm Patch Removal MC 1 each DAILY@2200 CARTER Administration Morphine Sulfate 15 mg 10/02/18 10:00 10/14/18 09:30 Ms Contin - PO 15 mg BID CARTER Administration Oxycodone HCl 10 mg 10/12/18 14:26 10/13/18 14:37 Roxicodone - PO 10 mg Q4H PRN Administration PAIN LEVEL 6-10 Polyethylene Glycol 17 gm 10/04/18 15:45 10/14/18 09:31 Miralax (For Daily Use) - PO 17 gm BID CARTER Administration Ranitidine HCl 150 mg 10/02/18 02:45 10/14/18 09:31 Zantac - PO 150 mg BID CARTER Administration Sucralfate 1 gm 10/05/18 18:00 10/14/18 09:29 Carafate Oral Suspension - PO 1 gm QID CARTER Administration Laboratory Results - last 24 hr 10/10/18 10/14/18 10/14/18 07:00 06:05 06:05 WBC 5.1 RBC 3.03 L Hgb 9.0 L Hct 26.5 L MCV 87.6 MCH 29.8 MCHC 34.0 RDW 17.8 H Plt Count 161 MPV 6.9 L Absolute Neuts (auto) 3.7 Neutrophils % 71.7 Lymphocytes % 16.7 Monocytes % 10.9 H Eosinophils % 0.2 Basophils % 0.5 Nucleated RBC % 2 H PT with INR 11.90 INR 1.01 PTT (Actin FS) 56.1 H Sodium Potassium Chloride Carbon Dioxide Anion Gap BUN Creatinine Est GFR (CKD-EPI)AfAm Est GFR (CKD-EPI)NonAf Random Glucose Calcium Total Bilirubin AST ALT Alkaline Phosphatase Total Protein Albumin Crossmatch See Detail 10/14/18 06:05 WBC RBC Hgb Hct MCV MCH MCHC RDW Plt Count MPV Absolute Neuts (auto) Neutrophils % Lymphocytes % Monocytes % Eosinophils % Basophils % Nucleated RBC % PT with INR INR PTT (Actin FS) Sodium 139 Potassium 3.9 Chloride 104 Carbon Dioxide 27 Anion Gap 8 BUN 14.6 Creatinine 0.7 Est GFR (CKD-EPI)AfAm 104.64 Est GFR (CKD-EPI)NonAf 90.29 Random Glucose 91 Calcium 7.4 L Total Bilirubin 1.7 H AST 12 L ALT 27 Alkaline Phosphatase 504 H Total Protein 5.6 L Albumin 2.6 L Crossmatch S1 S2 RRR Lungs clear Abd- soft, NT edema left leg, left knee warm+ PLAN spoke with Dr Galvan- oncology and DR Harman - ortho yesterday awaiting second opinion - Dr Mino Ny Again I discussed about transferring to another institution, pt and her daughter Tanna are now considering this. I have asked Dr Hall who will be rounding today if she can speak with Dr Galvan about consulting Ortho/Oncology surgeon at [facility]. Pain control is important here as well as her ambulatory status she will need to continue with iv antibiotics per ID surgery planned for Thursday but I will cancel this -- family not ready Pulmonary and cardiology has cleared the patient discussed with pt and family in detail, discussed with staff -- time spent 45 min Problem List - Problems (1) Fever Code(s): R50.9 - FEVER, UNSPECIFIED Qualifiers: Fever type: unspecified Qualified Code(s): R50.9 - Fever, unspecified (2) Hyperbilirubinemia Code(s): E80.6 - OTHER DISORDERS OF BILIRUBIN METABOLISM (3) Hyponatremia Code(s): E87.1 - HYPO-OSMOLALITY AND HYPONATREMIA (4) Neutropenic fever Code(s): D70.9 - NEUTROPENIA, UNSPECIFIED; R50.81 - FEVER PRESENTING WITH CONDITIONS CLASSIFIED ELSEWHERE (5) Neutropenic sepsis Code(s): A41.9 - SEPSIS, UNSPECIFIED ORGANISM; D70.9 - NEUTROPENIA, UNSPECIFIED (6) Pancytopenia Code(s): D61.818 - OTHER PANCYTOPENIA (7) Rectal bleeding Code(s): K62.5 - HEMORRHAGE OF ANUS AND RECTUM (8) Systemic inflammatory response syndrome (SIRS) Code(s): R65.10 - SIRS OF NON-INFECTIOUS ORIGIN W/O ACUTE ORGAN DYSFUNCTION (9) Metastatic breast cancer Code(s): C50.919 - MALIGNANT NEOPLASM OF UNSP SITE OF UNSPECIFIED FEMALE BREAST (10) Pathologic fracture Code(s): M84.40XA - PATHOLOGICAL FRACTURE, UNSP SITE, INIT ENCNTR FOR FRACTURE Qualifiers: Pathology associated with fracture: neoplastic disease Site of pathological fracture: femur Encounter type: subsequent encounter Laterality : left
--- NOTE | 2018-10-14 16:32 | PN ---
Progress Note (short form) - Note Progress Note: continued knee pain patient notes less swelling eating well no fevers or chills Vital Signs Period Temp Pulse Resp BP Sys/Nuñez Pulse Ox Last 24 Hr 97.6 F-98.6 F 70-79 20-20 120-143/62-77 100-100 no thrush cor-rrr lungs clear abd soft,nt ext left knee effusion/swellng unchanged, no erythema-binder in place +port, no erythema CBC, BMP 10/14/18 06:05 10/14/18 06:05 Microbiology 10/06/18 09:20 Blood - Johann Cath Blood Culture - Final NO GROWTH AFTER 5 DAYS INCUBATION 10/06/18 08:45 Blood - Johann Cath Blood Culture - Final NO GROWTH AFTER 5 DAYS INCUBATION 10/03/18 11:45 Blood - Peripheral Venous Blood Culture - Final NO GROWTH AFTER 5 DAYS INCUBATION 10/03/18 11:45 Blood - Peripheral Venous Blood Culture - Final NO GROWTH AFTER 5 DAYS INCUBATION 10/05/18 08:50 Synovial Fluid - Knee Gram Stain - Final 10/05/18 08:50 Synovial Fluid - Knee Body Fluid Culture - Final NO GROWTH OF AEROBIC ORGANISMS AFTER 48 HOURS INCUBATION 10/05/18 08:50 Synovial Fluid - Knee Anaerobic Culture - Final NO ANAEROBES WERE ISOLATED 10/02/18 00:01 Blood - Peripheral Venous Blood Culture - Final Strep Agalactiae Group B 10/02/18 00:01 Blood - Peripheral Venous Blood Culture - Final Strep Agalactiae Group B 10/02/18 02:00 Urine - Urine Clean Catch Urine Culture - Final mri- with suprapatellar effusion, +bony metastatic disease, +fracture a/p bacteremia- group b strep plan 4 weeks of ceftriaxone knee pain- left pathologic femur fracture- awaiting second opinion-familly considering transfer to tertiary care center surgery on hold PMD note reviewed s/p neutropenic fever history of metastatic breast cancer d/w patient and spouse at bedside Problem List - Problems (1) Neutropenic fever Code(s): D70.9 - NEUTROPENIA, UNSPECIFIED; R50.81 - FEVER PRESENTING WITH CONDITIONS CLASSIFIED ELSEWHERE (2) Pancytopenia Code(s): D61.818 - OTHER PANCYTOPENIA (3) Rectal bleeding Code(s): K62.5 - HEMORRHAGE OF ANUS AND RECTUM
[2018-10-14] MEDS: AMITRIPTYLINE HCL 25 MG TABLET (FP) PO SCH (21:14)
[2018-10-14] MEDS: ALPRAZolam 2 MG TABLET PO SCH (21:14)
[2018-10-14] MEDS: LIDOCAINE PATCH REMOVAL MC SCH (21:21)
--- NOTE | 2018-10-14 22:38 | PN ---
Progress Note (short form) - Note Progress Note: Patient seen and examined Left knee pain ambulating with walker AFVSS Cor: RSR, No murmurs, No gallops Lungs: Clear to P&A Abd: Soft, Normal bowel sounds, No organomegaly Ext:LLE 1+ edema Active Medications Generic Name Dose Route Start Last Admin Trade Name Freq PRN Reason Stop Dose Admin Alprazolam 1 mg 10/10/18 01:30 10/14/18 21:14 Xanax - PO 1 mg HS CARTER Administration Amitriptyline HCl 25 mg 10/02/18 22:00 10/14/18 21:14 Elavil - PO 25 mg HS CARTER Administration Dexamethasone 2 mg 10/02/18 14:45 10/15/18 11:04 Decadron - PO 2 mg DAILY CARTER Administration Gabapentin 300 mg 10/02/18 06:00 10/15/18 15:08 Neurontin - PO 300 mg TID CARTER Administration Hydrochlorothiazide 12.5 mg 10/10/18 11:15 10/15/18 11:02 Hctz - PO 12.5 mg DAILY CARTER Administration Ceftriaxone Sodium 2 gm/ 100 mls @ 200 mls/hr 10/05/18 10:00 10/15/18 11:05 Dextrose IVPB 200 mls/hr DAILY CARTER Administration Protocol Lidocaine 1 patch 10/06/18 14:00 10/15/18 11:07 Lidoderm Patch - TP 1 patch DAILY CARTER Administration Metoprolol Succinate 25 mg 10/02/18 10:00 10/15/18 11:04 Toprol Xl - PO 25 mg DAILY CARTER Administration Miscellaneous 1 each 10/06/18 22:00 10/14/18 21:21 Lidoderm Patch Removal MC 1 each DAILY@2200 CARTER Administration Morphine Sulfate 15 mg 10/02/18 10:00 10/15/18 11:02 Ms Contin - PO 15 mg BID CARTER Administration Oxycodone HCl 10 mg 10/12/18 14:26 10/15/18 18:52 Roxicodone - PO 10 mg Q4H PRN Administration PAIN LEVEL 6-10 Polyethylene Glycol 17 gm 10/04/18 15:45 10/15/18 11:07 Miralax (For Daily Use) - PO Not Given BID CARTER Ranitidine HCl 150 mg 10/02/18 02:45 10/15/18 11:04 Zantac - PO 150 mg BID CARTER Administration Sucralfate 1 gm 10/05/18 18:00 10/15/18 18:52 Carafate Oral Suspension - PO 1 gm QID CARTER Administration A/P 68F w/ ER/IA positive, 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 Found to have strep agalactiae bacteremia. On vanco/zosyn. Afebrile >24 hours. Repeat blood cultures pending. Responded well to PRBC with no further bloody BMs. C/w dexamethasone 2 mg daily Pelvic vein doppler for eval of LLE swelling also neg Left femur fracture. Had prior RT. ongoing management discussions with family
[2018-10-14] MEDS ORDERED: PORTA CATH FLUSH 10 ML IVPUSH ONE (22:52)
[2018-10-15] MEDS: oxyCODONE HCL 5 MG TABLET PO PRN ×4 (05:25→22:55)
[2018-10-15] MEDS: GABAPENTIN 300 MG CAPSULE (FP) PO SCH ×3 (05:26→21:47)
--- NOTE | 2018-10-15 10:17 | PN ---
Progress Note (short form) - Note Progress Note: Ortho Pt seen and examined s/p left pathologic distal femur fx a/p Pt to be transferred to [facility] for further treatment d/w Dr. Harman
[2018-10-15] MEDS ORDERED: DEXTROSE 5%-WATER 100 ML IVPB ONE (10:59)
[2018-10-15] MEDS: morphine SO4 SUSTAINED ACTING 15 MG TABLET.SA PO SCH ×2 (11:02→21:47)
[2018-10-15] MEDS: HYDROCHLOROTHIAZIDE 12.5 MG CAPSULE (FP) PO SCH (11:02)
[2018-10-15] MEDS: DEXAMETHASONE 4 MG TABLET (FP) PO SCH (11:04)
[2018-10-15] MEDS: RANITIDINE HCL 150 MG TABLET (FP) PO SCH ×2 (11:04→22:56)
[2018-10-15] MEDS: metoPROLOL SUCCINATE 25 MG TAB.SR.24H (FP) PO SCH (11:04)
[2018-10-15] MEDS: SUCRALFATE 1 GM/10 ML UNIT DOSE CUPS PO SCH ×4 (11:05→21:47)
[2018-10-15] MEDS: CEFTRIAXONE 2 GM in DEXTROSE 5%-WATER 100 ML IVPB SCH (11:05)
[2018-10-15] MEDS: LIDOCAINE 5% TOPICAL PATCH TP SCH (11:07)
[2018-10-15] MEDS: POLYETHYLENE GLYCOL 3350 119 GM BTL PO SCH ×2 (11:07→21:49)
--- NOTE | 2018-10-15 12:20 | PN ---
Progress Note (short form) - Note Progress Note: pt seen/ examined chart reviewed overall condition same pt says seen by Ortho --2nd opinion --MRI ordered I also discussed with Dr. Galvan Vital Signs Temp 98.8 F 10/15/18 10:00 Pulse 88 10/15/18 10:00 Resp 20 10/15/18 10:00 BP 134/65 10/15/18 10:00 Pulse Ox 96 10/14/18 21:00 Intake & Output 10/14/18 10/15/18 10/15/18 23:59 11:59 23:59 Intake Total 150 0 Balance 150 0 Intake: IV 0 0 RCW Portacath 0 0 IVPB 100 Oral 50 Other: Voiding Method Toilet Toilet Bowel Movement No Active Medications Alprazolam (Xanax -) 1 mg PO HS [facility] Last Admin: 10/14/18 21:14 Dose: 1 mg Amitriptyline HCl (Elavil -) 25 mg PO HS [facility] Last Admin: 10/14/18 21:14 Dose: 25 mg Dexamethasone (Decadron -) 2 mg PO DAILY [facility] Last Admin: 10/15/18 11:04 Dose: 2 mg Gabapentin (Neurontin -) 300 mg PO TID [facility] Last Admin: 10/15/18 05:26 Dose: 300 mg Hydrochlorothiazide (Hctz -) 12.5 mg PO DAILY [facility] Last Admin: 10/15/18 11:02 Dose: 12.5 mg Ceftriaxone Sodium 2 gm/ (Dextrose) 100 mls @ 200 mls/hr IVPB DAILY [facility]; Protocol Last Admin: 10/15/18 11:05 Dose: 200 mls/hr Lidocaine (Lidoderm Patch -) 1 patch TP DAILY [facility] Last Admin: 10/15/18 11:07 Dose: 1 patch Metoprolol Succinate (Toprol Xl -) 25 mg PO DAILY [facility] Last Admin: 10/15/18 11:04 Dose: 25 mg Miscellaneous (Lidoderm Patch Removal) 1 each MC DAILY@2200 [facility] Last Admin: 10/14/18 21:21 Dose: 1 each Morphine Sulfate (Ms Contin -) 15 mg PO BID [facility] Last Admin: 10/15/18 11:02 Dose: 15 mg Oxycodone HCl (Roxicodone -) 10 mg PO Q4H PRN PRN Reason: PAIN LEVEL 6-10 Last Admin: 10/15/18 05:25 Dose: 10 mg Polyethylene Glycol (Miralax (For Daily Use) -) 17 gm PO BID [facility] Last Admin: 10/15/18 11:07 Dose: Not Given Ranitidine HCl (Zantac -) 150 mg PO BID [facility] Last Admin: 10/15/18 11:04 Dose: 150 mg Sucralfate (Carafate Oral Suspension -) 1 gm PO QID [facility] Last Admin: 10/15/18 11:05 Dose: 1 gm CBC, BMP 10/14/18 06:05 10/14/18 06:05 Physical S1 S2 RRR Lungs clear Abd- soft, NT edema left leg, left knee Alert/ awake a/p continue present care further recommendations after MRI Possible transfer to [facility] Will follow Problem List - Problems (1) Fever Code(s): R50.9 - FEVER, UNSPECIFIED Qualifiers: Fever type: unspecified Qualified Code(s): R50.9 - Fever, unspecified (2) Metastatic breast cancer Code(s): C50.919 - MALIGNANT NEOPLASM OF UNSP SITE OF UNSPECIFIED FEMALE BREAST (3) Pancytopenia Code(s): D61.818 - OTHER PANCYTOPENIA (4) Neutropenic sepsis Code(s): A41.9 - SEPSIS, UNSPECIFIED ORGANISM; D70.9 - NEUTROPENIA, UNSPECIFIED (5) Sepsis Code(s): A41.9 - SEPSIS, UNSPECIFIED ORGANISM
--- NOTE | 2018-10-15 12:29 | PN ---
Progress Note (short form) - Note Progress Note: 68F p/w metastastic breast cancer to left knee. Request for evaluation (and 2nd opinion) for the treatment of impending pathologic left distal femoral fracture & proposed treatment of knee reconstruction with distal femoral replacement. Pt. reports difficulty ambulating due to left knee pain, stiffness, and swelling. (+) Voiding; (+) Flatus; (+) BM. All labs and vitals reviewed. PE: AAO x 3, NAD. Left Knee: Unable to bear weight d/t pain. No referred pain from left hip to knee. No femoral neuralgia. Skin C/D/I. Knee swollen. 1+ effusion, (+) bulge test. PROM: 20-40 deg KF. NVI distally. X-Ray L Femur: suspicious metastatic tumor in femoral head, neck, and distal femur. MRI L Knee: Distal intra-osseus tumor infiltration with possible medial cortical erosion. No pathologic fracture seen. 68F p/w metastatic disease involving left femur, proximal tibia, and spine. -Recommend MRI & CT (non-contrast) entire pelvis, left femur, and left tibia prior to any further management recommendations. -Case discussed with Dr. Galvan (oncology) and Dr. Harman (Orthopaedic Surgery); further management recommendations will depend on results of imaging. -Pain control. -DVT PPx: -Chemical: per primary medical team. -Mechanical: SCD's, PAUL's. -Incentive spirometry. -PT/OT/Rehab, OOB. -NWB RLE. -Care per primary medical team. -Will follow. Mino Ny MD (Orthopaedic Surgery).
--- NOTE | 2018-10-15 18:35 | PN ---
Progress Note (short form) - Note Progress Note: Case reviewed with Dr. Ny Need to view entire left leg with MRI and CT imaging to assess possible feasibility rustam surgery. Await tests Discussed with patient.
[2018-10-15] MEDS ORDERED: PORTA CATH FLUSH 10 ML IVPUSH ONE (20:37)
[2018-10-15] MEDS: AMITRIPTYLINE HCL 25 MG TABLET (FP) PO SCH (21:48)
[2018-10-15] MEDS: LIDOCAINE PATCH REMOVAL MC SCH (21:49)
[2018-10-15] MEDS: ALPRAZolam 2 MG TABLET PO SCH (21:49)
[2018-10-16] MEDS: GABAPENTIN 300 MG CAPSULE (FP) PO SCH ×3 (05:54→21:26)
[2018-10-16] MEDS: oxyCODONE HCL 5 MG TABLET PO PRN ×2 (07:10→12:47)
[2018-10-16] MEDS ORDERED: DEXTROSE 5%-WATER 100 ML IVPB ONE (09:39)
[2018-10-16] MEDS: SUCRALFATE 1 GM/10 ML UNIT DOSE CUPS PO SCH ×4 (10:22→21:26)
[2018-10-16] MEDS: HYDROCHLOROTHIAZIDE 12.5 MG CAPSULE (FP) PO SCH (10:23)
[2018-10-16] MEDS: metoPROLOL SUCCINATE 25 MG TAB.SR.24H (FP) PO SCH (10:23)
[2018-10-16] MEDS: DEXAMETHASONE 4 MG TABLET (FP) PO SCH (10:23)
[2018-10-16] MEDS: morphine SO4 SUSTAINED ACTING 15 MG TABLET.SA PO SCH ×2 (10:23→21:26)
[2018-10-16] MEDS: LIDOCAINE 5% TOPICAL PATCH TP SCH ×2 (10:23→19:11)
[2018-10-16] MEDS: CEFTRIAXONE 2 GM in DEXTROSE 5%-WATER 100 ML IVPB SCH (10:23)
[2018-10-16] MEDS: POLYETHYLENE GLYCOL 3350 119 GM BTL PO SCH ×2 (10:24→21:27)
[2018-10-16] MEDS: RANITIDINE HCL 150 MG TABLET (FP) PO SCH ×2 (10:24→21:26)
--- NOTE | 2018-10-16 10:33 | PN ---
Progress Note (short form) - Note Progress Note: continued knee pain patient notes less swelling eating well no fevers or chills Vital Signs Period Temp Pulse Resp BP Sys/Nuñez Pulse Ox Last 24 Hr 98.1 F-98.8 F 82-96 20-20 103-120/51-68 97 cor-rrr lungs clear abd soft,nt ext swelling unchanged LLE port site nontender CBC, BMP 10/14/18 06:05 10/14/18 06:05 Microbiology 10/06/18 09:20 Blood - Johann Cath Blood Culture - Final NO GROWTH AFTER 5 DAYS INCUBATION 10/06/18 08:45 Blood - Johann Cath Blood Culture - Final NO GROWTH AFTER 5 DAYS INCUBATION 10/03/18 11:45 Blood - Peripheral Venous Blood Culture - Final NO GROWTH AFTER 5 DAYS INCUBATION 10/03/18 11:45 Blood - Peripheral Venous Blood Culture - Final NO GROWTH AFTER 5 DAYS INCUBATION 10/05/18 08:50 Synovial Fluid - Knee Gram Stain - Final 10/05/18 08:50 Synovial Fluid - Knee Body Fluid Culture - Final NO GROWTH OF AEROBIC ORGANISMS AFTER 48 HOURS INCUBATION 10/05/18 08:50 Synovial Fluid - Knee Anaerobic Culture - Final NO ANAEROBES WERE ISOLATED 10/02/18 00:01 Blood - Peripheral Venous Blood Culture - Final Strep Agalactiae Group B 10/02/18 00:01 Blood - Peripheral Venous Blood Culture - Final Strep Agalactiae Group B 10/02/18 02:00 Urine - Urine Clean Catch Urine Culture - Final mri- with suprapatellar effusion, +bony metastatic disease, +fracture a/p bacteremia- group b strep plan 4 weeks of ceftriaxone-now day #14 knee pain- left pathologic femur fracture- awaiting second opinion-familly considering transfer to tertiary care center surgery on hold imaging done and pending s/p neutropenic fever history of metastatic breast cancer Problem List - Problems (1) Neutropenic fever Code(s): D70.9 - NEUTROPENIA, UNSPECIFIED; R50.81 - FEVER PRESENTING WITH CONDITIONS CLASSIFIED ELSEWHERE (2) Pancytopenia Code(s): D61.818 - OTHER PANCYTOPENIA (3) Rectal bleeding Code(s): K62.5 - HEMORRHAGE OF ANUS AND RECTUM
[2018-10-16] MEDS ORDERED: ACETAMINOPHEN 325 MG TABLET (FP) PO ONE (12:28)
--- NOTE | 2018-10-16 13:11 | PN ---
Progress Note (short form) - Note Progress Note: Pt seen /examined. chart reviewed pain issues -- mri low grade temp-- 100.8 Vital Signs Temp 100.8 F H 10/16/18 10:00 Pulse 102 H 10/16/18 10:00 Resp 20 10/16/18 10:00 BP 149/79 10/16/18 10:00 Pulse Ox 97 10/16/18 09:00 Intake & Output 10/15/18 10/16/18 10/16/18 23:59 11:59 23:59 Intake Total 50 30 200 Balance 50 30 200 Intake: Oral 50 30 200 Other: Voiding Method Toilet Bedside Commode Toilet # Unmeasured Voids Void 1 Bowel Movement No No No Body Mass Index (BMI) 25.3 Active Medications Alprazolam (Xanax -) 1 mg PO HS [facility] Last Admin: 10/15/18 21:49 Dose: 1 mg Amitriptyline HCl (Elavil -) 25 mg PO [facility] Last Admin: 10/15/18 21:48 Dose: 25 mg Dexamethasone (Decadron -) 2 mg PO DAILY [facility] Last Admin: 10/16/18 10:23 Dose: 2 mg Gabapentin (Neurontin -) 300 mg PO TID [facility] Last Admin: 10/16/18 05:54 Dose: 300 mg Hydrochlorothiazide (Hctz -) 12.5 mg PO DAILY [facility] Last Admin: 10/16/18 10:23 Dose: 12.5 mg Ceftriaxone Sodium 2 gm/ (Dextrose) 100 mls @ 200 mls/hr IVPB DAILY [facility]; Protocol Last Admin: 10/16/18 10:23 Dose: 200 mls/hr Lidocaine (Lidoderm Patch -) 1 patch TP DAILY [facility] Last Admin: 10/16/18 10:23 Dose: 1 patch Lidocaine (Lidoderm Patch -) 1 patch TP DAILY [facility] Metoprolol Succinate (Toprol Xl -) 25 mg PO DAILY [facility] Last Admin: 10/16/18 10:23 Dose: 25 mg Miscellaneous (Lidoderm Patch Removal) 1 each MC DAILY@2200 [facility] Last Admin: 10/15/18 21:49 Dose: 1 each Miscellaneous (Lidoderm Patch Removal) 1 each MC DAILY@2200 [facility] Morphine Sulfate (Ms Contin -) 15 mg PO BID [facility] Last Admin: 10/16/18 10:23 Dose: 15 mg Morphine Sulfate (Morphine Injection -) 4 mg IVPUSH ONCE ONE Stop: 10/16/18 13:07 Oxycodone HCl (Roxicodone -) 10 mg PO Q4H PRN PRN Reason: PAIN LEVEL 6-10 Last Admin: 10/16/18 12:47 Dose: 10 mg Polyethylene Glycol (Miralax (For Daily Use) -) 17 gm PO BID [facility] Last Admin: 10/16/18 10:24 Dose: Not Given Ranitidine HCl (Zantac -) 150 mg PO BID [facility] Last Admin: 10/16/18 10:24 Dose: 150 mg Sucralfate (Carafate Oral Suspension -) 1 gm PO QID [facility] Last Admin: 10/16/18 10:22 Dose: 1 gm CBC, BMP 10/14/18 06:05 10/14/18 06:05 mri--done -- half -- rest pending. Physical S1 S2 RRR Lungs clear Abd- soft, NT edema left leg, left knee Alert/ awake a/p continue present care further recommendations after MRI Possible transfer to [facility] Will follow work up for fever MRI Morphine before MRI Will follow Abx for neutropenic fever Problem List - Problems (1) Fever Code(s): R50.9 - FEVER, UNSPECIFIED Qualifiers: Fever type: unspecified Qualified Code(s): R50.9 - Fever, unspecified (2) Metastatic breast cancer Code(s): C50.919 - MALIGNANT NEOPLASM OF UNSP SITE OF UNSPECIFIED FEMALE BREAST (3) Pancytopenia Code(s): D61.818 - OTHER PANCYTOPENIA (4) Neutropenic sepsis Code(s): A41.9 - SEPSIS, UNSPECIFIED ORGANISM; D70.9 - NEUTROPENIA, UNSPECIFIED (5) Sepsis Code(s): A41.9 - SEPSIS, UNSPECIFIED ORGANISM
[2018-10-16] MEDS ORDERED: LIDOCAINE 5% TOPICAL PATCH TP SCH (13:15)
[2018-10-16 13:32] LABS: HEMATOCRIT 28.1 % (32.4-45.2); HEMOGLOBIN 9.7 GM/dL (10.7-15.3); MCH 30.2 pg (25.7-33.7); MCHC 34.4 g/dl (32.0-36.0); MEAN CELL VOLUME 87.8 fl (80-96); MEAN PLT VOLUME 6.6 fl (7.5-11.1); RDW 18.3 % (11.6-15.6); WHITE BLOOD COUNT 5.6 K/mm3 (4.0-10.0)
[2018-10-16 13:36] LABS: URINE APPEARANCE CLEAR; URINE BILIRUBIN NEGATIVE (NEGATIVE); URINE COLOR YELLOW; URINE GLUCOSE (UA) NEGATIVE (NEGATIVE); URINE KETONE NEGATIVE (NEGATIVE); URINE LEUK ESTERASE NEGATIVE (NEGATIVE); URINE NITRITE NEGATIVE (NEGATIVE); URINE PROTEIN NEGATIVE (NEGATIVE); URINE UROBILINOGEN 0.2 mg/dL (0.2-1.0)
[2018-10-16 13:39] LABS: PLATELET COUNT 190 K/MM3 (134-434)
[2018-10-16 13:58] LABS: ALBUMIN 2.8 g/dl (3.4-5.0); BILIRUBIN,TOTAL 0.5 mg/dL (0.2-1); BLOOD UREA NITROGEN 16.5 mg/dL (7-18); CREATININE 0.9 mg/dL (0.55-1.3); POTASSIUM 3.7 mmol/L (3.5-5.1); TOT PROT 6.2 g/dl (6.4-8.2)
--- NOTE | 2018-10-16 15:34 | PN ---
Progress Note, Physician History of Present Illness: Left knee pain referable to left distal femur left knee pathologic fracture due to mets. Had prior RT. Plan for possible OR for ORIF and 2nd opinion noted, awaiting f/u imaging. Regarding cardiovascular symptoms, denies chest pain, dyspnea, near or true syncope, palpitations, orthopnea, PND, or LE edema. - Current Medication List Current Medications: Active Medications Alprazolam (Xanax -) 1 mg PO HS [facility] Last Admin: 10/15/18 21:49 Dose: 1 mg Amitriptyline HCl (Elavil -) 25 mg PO HS [facility] Last Admin: 10/15/18 21:48 Dose: 25 mg Dexamethasone (Decadron -) 2 mg PO DAILY [facility] Last Admin: 10/16/18 10:23 Dose: 2 mg Gabapentin (Neurontin -) 300 mg PO TID [facility] Last Admin: 10/16/18 14:09 Dose: 300 mg Hydrochlorothiazide (Hctz -) 12.5 mg PO DAILY [facility] Last Admin: 10/16/18 10:23 Dose: 12.5 mg Ceftriaxone Sodium 2 gm/ (Dextrose) 100 mls @ 200 mls/hr IVPB DAILY [facility]; Protocol Last Admin: 10/16/18 10:23 Dose: 200 mls/hr Lidocaine (Lidoderm Patch -) 1 patch TP DAILY [facility] Last Admin: 10/16/18 10:23 Dose: 1 patch Lidocaine (Lidoderm Patch -) 1 patch TP DAILY [facility] Last Admin: 10/16/18 15:29 Dose: 1 patch Metoprolol Succinate (Toprol Xl -) 25 mg PO DAILY [facility] Last Admin: 10/16/18 10:23 Dose: 25 mg Miscellaneous (Lidoderm Patch Removal) 1 each MC DAILY@2200 [facility] Last Admin: 10/15/18 21:49 Dose: 1 each Miscellaneous (Lidoderm Patch Removal) 1 each MC DAILY@2200 [facility] Morphine Sulfate (Ms Contin -) 15 mg PO BID [facility] Last Admin: 10/16/18 10:23 Dose: 15 mg Morphine Sulfate (Morphine Sulfate) 4 mg IVPUSH ONCE ONE Stop: 10/16/18 13:07 Oxycodone HCl (Roxicodone -) 10 mg PO Q4H PRN PRN Reason: PAIN LEVEL 6-10 Last Admin: 10/16/18 12:47 Dose: 10 mg Polyethylene Glycol (Miralax (For Daily Use) -) 17 gm PO BID [facility] Last Admin: 10/16/18 10:24 Dose: Not Given Ranitidine HCl (Zantac -) 150 mg PO BID [facility] Last Admin: 10/16/18 10:24 Dose: 150 mg Sucralfate (Carafate Oral Suspension -) 1 gm PO QID [facility] Last Admin: 10/16/18 14:09 Dose: 1 gm - Objective Vital Signs: Vital Signs Temperature 99.3 F 10/16/18 15:26 Pulse Rate 90 10/16/18 15:26 Respiratory Rate 20 10/16/18 15:26 Blood Pressure 138/71 10/16/18 15:26 O2 Sat by Pulse Oximetry (%) 97 10/16/18 09:00 Constitutional: Yes: No Distress, Calm Neck: Yes: Supple Cardiovascular: Yes: Regular Rate and Rhythm Respiratory: Yes: Regular, CTA Bilaterally Gastrointestinal: Yes: Normal Bowel Sounds, Soft Edema: No Labs: CBC, BMP 10/16/18 12:30 10/16/18 12:30 INR, PTT INR 1.01 (0.83-1.09) 10/14/18 06:05 Problem List - Problems (1) Pathologic fracture Code(s): M84.40XA - PATHOLOGICAL FRACTURE, UNSP SITE, INIT ENCNTR FOR FRACTURE Qualifiers: Pathology associated with fracture: neoplastic disease Site of pathological fracture: femur Encounter type: subsequent encounter Laterality : left (2) Preoperative cardiovascular examination Code(s): Z01.810 - ENCOUNTER FOR PREPROCEDURAL CARDIOVASCULAR EXAMINATION (3) Rectal bleeding Code(s): K62.5 - HEMORRHAGE OF ANUS AND RECTUM (4) Metastatic breast cancer Code(s): C50.919 - MALIGNANT NEOPLASM OF UNSP SITE OF UNSPECIFIED FEMALE BREAST (5) Cancer, metastatic to bone Code(s): C79.51 - SECONDARY MALIGNANT NEOPLASM OF BONE (6) HTN (hypertension) Code(s): I10 - ESSENTIAL (PRIMARY) HYPERTENSION Qualifiers: Hypertension type: essential hypertension Qualified Code(s): I10 - Essential (primary) hypertension (7) Pain from bone metastases Code(s): G89.3 - NEOPLASM RELATED PAIN (ACUTE) (CHRONIC); C79.51 - SECONDARY MALIGNANT NEOPLASM OF BONE Assessment/Plan 10/04/2018 Normal LV size and fxn, LVEF 65-70%, normal atrial sizes bilaterally , mild AR, MD, MR, TR RVSP 37 mmHg X-Ray L Femur: suspicious metastatic tumor in femoral head, neck, and distal femur. MRI L Knee: Distal intra-osseus tumor infiltration with possible medial cortical erosion. No pathologic fracture seen. 1. Pre-op CV evaluation prior to ORIF left distal femur and prox tibial pathologic fracture with mets 2. Metastatic breast cancer involving left femur, proximal tibia and spine 3. Hypertension 4. Group B strep bacteremia with clearance 5. Anemia post transfusion P:1. Given absence of sxs of acute coronary syndrome, decompensated CHF or malignant arrhythmia, may proceed with ORIF from CV standpoint w/o further testing. 2. Monitor Hgb post transfusion 3. Continue Zesteretic 10/12.5 qd, Toprol XL 25 qd 4. IV antibiotics per ID-- 4 weeks 5. Analgesia as needed, DVT prophylaxis 6. MRI & CT (non-contrast) entire pelvis, left femur, and left tibia
[2018-10-16] MEDS ORDERED: morphine SULFATE 4 MG/ML VIAL IVPUSH ONE (16:15)
--- NOTE | 2018-10-16 17:26 | PN ---
Progress Note, Physician History of Present Illness: No new events. Continues to have knee pain, worse in some positions. Has part of MRI yesterday. - Current Medication List Current Medications: Active Medications Alprazolam (Xanax -) 1 mg PO HS [facility] Last Admin: 10/15/18 21:49 Dose: 1 mg Amitriptyline HCl (Elavil -) 25 mg PO HS [facility] Last Admin: 10/15/18 21:48 Dose: 25 mg Dexamethasone (Decadron -) 2 mg PO DAILY [facility] Last Admin: 10/16/18 10:23 Dose: 2 mg Gabapentin (Neurontin -) 300 mg PO TID [facility] Last Admin: 10/16/18 14:09 Dose: 300 mg Hydrochlorothiazide (Hctz -) 12.5 mg PO DAILY [facility] Last Admin: 10/16/18 10:23 Dose: 12.5 mg Ceftriaxone Sodium 2 gm/ (Dextrose) 100 mls @ 200 mls/hr IVPB DAILY [facility]; Protocol Last Admin: 10/16/18 10:23 Dose: 200 mls/hr Lidocaine (Lidoderm Patch -) 1 patch TP DAILY [facility] Last Admin: 10/16/18 10:23 Dose: 1 patch Lidocaine (Lidoderm Patch -) 1 patch TP DAILY [facility] Last Admin: 10/16/18 15:29 Dose: 1 patch Metoprolol Succinate (Toprol Xl -) 25 mg PO DAILY [facility] Last Admin: 10/16/18 10:23 Dose: 25 mg Miscellaneous (Lidoderm Patch Removal) 1 each MC DAILY@2200 [facility] Last Admin: 10/15/18 21:49 Dose: 1 each Miscellaneous (Lidoderm Patch Removal) 1 each MC DAILY@2200 [facility] Morphine Sulfate (Ms Contin -) 15 mg PO BID [facility] Last Admin: 10/16/18 10:23 Dose: 15 mg Oxycodone HCl (Roxicodone -) 10 mg PO Q4H PRN PRN Reason: PAIN LEVEL 6-10 Last Admin: 10/16/18 12:47 Dose: 10 mg Polyethylene Glycol (Miralax (For Daily Use) -) 17 gm PO BID [facility] Last Admin: 10/16/18 10:24 Dose: Not Given Ranitidine HCl (Zantac -) 150 mg PO BID [facility] Last Admin: 10/16/18 10:24 Dose: 150 mg Sucralfate (Carafate Oral Suspension -) 1 gm PO QID [facility] Last Admin: 10/16/18 14:09 Dose: 1 gm - Objective Vital Signs: Vital Signs Temperature 99.3 F 10/16/18 15:26 Pulse Rate 90 10/16/18 15:26 Respiratory Rate 20 10/16/18 15:26 Blood Pressure 138/71 10/16/18 15:26 O2 Sat by Pulse Oximetry (%) 97 10/16/18 09:00 Constitutional: Yes: Well Nourished Eyes: Yes: Conjunctiva Clear Respiratory: Yes: Regular, CTA Bilaterally Gastrointestinal: Yes: Soft. No: Tenderness (left knee swelling, improved somewhat per pt) Labs: CBC, BMP 10/16/18 12:30 10/16/18 12:30 INR, PTT INR 1.01 (0.83-1.09) 10/14/18 06:05 Assessment/Plan 68F w/ ER/MO positive, 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 Found to have strep agalactiae bacteremia. On 4 weeks course of Ceftriaxone. Has pathologic fx of left femur. Had prior RT. Now being considered for surgery (knee reconstruction with distal femoral replacement) with possible transfer to [facility], pending MRI/CT of entire pelvis, left femur and tibia.
[2018-10-16] MEDS: AMITRIPTYLINE HCL 25 MG TABLET (FP) PO SCH (21:26)
[2018-10-16] MEDS: ALPRAZolam 2 MG TABLET PO SCH (21:26)
[2018-10-16] MEDS: LIDOCAINE PATCH REMOVAL MC SCH ×2 (21:33)
[2018-10-16] MEDS ORDERED: PORTA CATH FLUSH 10 ML IVPUSH ONE (22:11)
[2018-10-17] MEDS: oxyCODONE HCL 5 MG TABLET PO PRN ×2 (05:08→13:08)
[2018-10-17] MEDS: GABAPENTIN 300 MG CAPSULE (FP) PO SCH ×3 (05:08→22:09)
[2018-10-17] MEDS ORDERED: DEXTROSE 5%-WATER 100 ML IVPB ONE (08:19)
[2018-10-17] MEDS: metoPROLOL SUCCINATE 25 MG TAB.SR.24H (FP) PO SCH (09:25)
[2018-10-17] MEDS: morphine SO4 SUSTAINED ACTING 15 MG TABLET.SA PO SCH ×2 (09:25→22:10)
[2018-10-17] MEDS: DEXAMETHASONE 4 MG TABLET (FP) PO SCH (09:26)
[2018-10-17] MEDS: HYDROCHLOROTHIAZIDE 12.5 MG CAPSULE (FP) PO SCH (09:26)
[2018-10-17] MEDS: SUCRALFATE 1 GM/10 ML UNIT DOSE CUPS PO SCH ×4 (09:27→22:09)
[2018-10-17] MEDS: LIDOCAINE 5% TOPICAL PATCH TP SCH ×2 (09:27→14:04)
[2018-10-17] MEDS: RANITIDINE HCL 150 MG TABLET (FP) PO SCH ×2 (09:27→22:10)
[2018-10-17] MEDS: POLYETHYLENE GLYCOL 3350 119 GM BTL PO SCH ×2 (09:28→22:14)
[2018-10-17] MEDS: CEFTRIAXONE 2 GM in DEXTROSE 5%-WATER 100 ML IVPB SCH (09:28)
--- NOTE | 2018-10-17 14:12 | PN ---
Progress Note (short form) - Note Progress Note: awake/ comfortable says morphine helped a lot with MRI yesterday reports are pending afebrile Repeat cultures -ve so far Vital Signs Temp 97.8 F 10/17/18 10:00 Pulse 86 10/17/18 10:00 Resp 18 10/17/18 10:00 BP 131/75 10/17/18 10:00 Pulse Ox 100 10/17/18 09:00 Intake & Output 10/16/18 10/17/18 10/17/18 23:59 11:59 23:59 Intake Total 550 200 Balance 550 200 Intake: Oral 550 200 Other: Voiding Method Bedside Commode Bedside Commode # Unmeasured Voids Void 1 1 Bowel Movement Yes No Active Medications Alprazolam (Xanax -) 1 mg PO [facility] Last Admin: 10/16/18 21:26 Dose: 1 mg Amitriptyline HCl (Elavil -) 25 mg PO [facility] Last Admin: 10/16/18 21:26 Dose: 25 mg Dexamethasone (Decadron -) 2 mg PO DAILY [facility] Last Admin: 10/17/18 09:26 Dose: 2 mg Gabapentin (Neurontin -) 300 mg PO TID [facility] Last Admin: 10/17/18 14:04 Dose: 300 mg Hydrochlorothiazide (Hctz -) 12.5 mg PO DAILY [facility] Last Admin: 10/17/18 09:26 Dose: 12.5 mg Ceftriaxone Sodium 2 gm/ (Dextrose) 100 mls @ 200 mls/hr IVPB DAILY [facility]; Protocol Last Admin: 10/17/18 09:28 Dose: 200 mls/hr Lidocaine (Lidoderm Patch -) 1 patch TP DAILY [facility] Last Admin: 10/17/18 09:27 Dose: 1 patch Lidocaine (Lidoderm Patch -) 1 patch TP DAILY@1300 [facility] Last Admin: 10/17/18 14:04 Dose: 1 patch Metoprolol Succinate (Toprol Xl -) 25 mg PO DAILY [facility] Last Admin: 10/17/18 09:25 Dose: 25 mg Miscellaneous (Lidoderm Patch Removal) 1 each MC DAILY@2200 [facility] Last Admin: 10/16/18 21:33 Dose: Not Given Miscellaneous (Lidoderm Patch Removal) 1 each MC DAILY@2200 [facility] Last Admin: 10/16/18 21:33 Dose: Not Given Morphine Sulfate (Ms Contin -) 15 mg PO BID [facility] Last Admin: 10/17/18 09:25 Dose: 15 mg Oxycodone HCl (Roxicodone -) 10 mg PO Q4H PRN PRN Reason: PAIN LEVEL 6-10 Last Admin: 10/17/18 13:08 Dose: 10 mg Polyethylene Glycol (Miralax (For Daily Use) -) 17 gm PO BID [facility] Last Admin: 10/17/18 09:28 Dose: Not Given Ranitidine HCl (Zantac -) 150 mg PO BID [facility] Last Admin: 10/17/18 09:27 Dose: 150 mg Sucralfate (Carafate Oral Suspension -) 1 gm PO QID [facility] Last Admin: 10/17/18 14:04 Dose: 1 gm CBC, BMP 10/16/18 12:30 10/16/18 12:30 Microbiology 10/16/18 13:10 Blood Culture - Preliminary Blood - Peripheral Venous NO GROWTH OBTAINED AFTER 24 HOURS, INCUBATION TO CONTINUE FOR 4 DAYS. 10/16/18 13:00 Blood Culture - Preliminary Blood - Peripheral Venous NO GROWTH OBTAINED AFTER 24 HOURS, INCUBATION TO CONTINUE FOR 4 DAYS. 10/16/18 12:30 Blood Culture - Preliminary Blood - Johann Cath NO GROWTH OBTAINED AFTER 24 HOURS, INCUBATION TO CONTINUE FOR 4 DAYS. 10/16/18 12:30 Blood Culture - Preliminary Blood - Johann Cath NO GROWTH OBTAINED AFTER 24 HOURS, INCUBATION TO CONTINUE FOR 4 DAYS. 10/16/18 13:10 Urine Culture - Final Urine - Urine Clean Catch mri-- reports pending Physical S1 S2 RRR Lungs clear Abd- soft, NT edema left leg, left knee Alert/ awake a/p continue present care further recommendations after MRI Possible transfer to [facility] Will follow labs tomorrow-- ordered Problem List - Problems (1) Fever Code(s): R50.9 - FEVER, UNSPECIFIED Qualifiers: Fever type: unspecified Qualified Code(s): R50.9 - Fever, unspecified (2) Metastatic breast cancer Code(s): C50.919 - MALIGNANT NEOPLASM OF UNSP SITE OF UNSPECIFIED FEMALE BREAST (3) Pancytopenia Code(s): D61.818 - OTHER PANCYTOPENIA (4) Neutropenic sepsis Code(s): A41.9 - SEPSIS, UNSPECIFIED ORGANISM; D70.9 - NEUTROPENIA, UNSPECIFIED (5) Sepsis Code(s): A41.9 - SEPSIS, UNSPECIFIED ORGANISM
--- NOTE | 2018-10-17 19:51 | PN ---
Progress Note, Physician History of Present Illness: No new events. Knee pain unchanged. Completed MRI, reports pending. - Current Medication List Current Medications: Active Medications Alprazolam (Xanax -) 1 mg PO HS [facility] Last Admin: 10/16/18 21:26 Dose: 1 mg Amitriptyline HCl (Elavil -) 25 mg PO HS [facility] Last Admin: 10/16/18 21:26 Dose: 25 mg Dexamethasone (Decadron -) 2 mg PO DAILY [facility] Last Admin: 10/17/18 09:26 Dose: 2 mg Gabapentin (Neurontin -) 300 mg PO TID [facility] Last Admin: 10/17/18 14:04 Dose: 300 mg Hydrochlorothiazide (Hctz -) 12.5 mg PO DAILY [facility] Last Admin: 10/17/18 09:26 Dose: 12.5 mg Ceftriaxone Sodium 2 gm/ (Dextrose) 100 mls @ 200 mls/hr IVPB DAILY [facility]; Protocol Last Admin: 10/17/18 09:28 Dose: 200 mls/hr Lidocaine (Lidoderm Patch -) 1 patch TP DAILY [facility] Last Admin: 10/17/18 09:27 Dose: 1 patch Lidocaine (Lidoderm Patch -) 1 patch TP DAILY@1300 [facility] Last Admin: 10/17/18 14:04 Dose: 1 patch Metoprolol Succinate (Toprol Xl -) 25 mg PO DAILY [facility] Last Admin: 10/17/18 09:25 Dose: 25 mg Miscellaneous (Lidoderm Patch Removal) 1 each MC DAILY@2200 [facility] Last Admin: 10/16/18 21:33 Dose: Not Given Miscellaneous (Lidoderm Patch Removal) 1 each MC DAILY@2200 [facility] Last Admin: 10/16/18 21:33 Dose: Not Given Morphine Sulfate (Ms Contin -) 15 mg PO BID [facility] Last Admin: 10/17/18 09:25 Dose: 15 mg Oxycodone HCl (Roxicodone -) 10 mg PO Q4H PRN PRN Reason: PAIN LEVEL 6-10 Last Admin: 10/17/18 13:08 Dose: 10 mg Polyethylene Glycol (Miralax (For Daily Use) -) 17 gm PO BID [facility] Last Admin: 10/17/18 09:28 Dose: Not Given Ranitidine HCl (Zantac -) 150 mg PO BID [facility] Last Admin: 10/17/18 09:27 Dose: 150 mg Sucralfate (Carafate Oral Suspension -) 1 gm PO QID [facility] Last Admin: 10/17/18 17:35 Dose: 1 gm - Objective Vital Signs: Vital Signs Temperature 98.1 F 10/17/18 18:34 Pulse Rate 80 10/17/18 18:34 Respiratory Rate 20 10/17/18 18:34 Blood Pressure 119/64 10/17/18 18:34 O2 Sat by Pulse Oximetry (%) 100 10/17/18 09:00 Constitutional: Yes: No Distress, Calm Eyes: Yes: Conjunctiva Clear Respiratory: Yes: Regular, CTA Bilaterally Gastrointestinal: Yes: WNL, Soft Edema: No Labs: CBC, BMP 10/16/18 12:30 10/16/18 12:30 INR, PTT INR 1.01 (0.83-1.09) 10/14/18 06:05 Assessment/Plan 68F w/ ER/[place] positive, 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 Found to have strep agalactiae bacteremia. On 4 weeks course of Ceftriaxone. Has pathologic fx of left femur. Had prior RT. Now being considered for surgery (knee reconstruction with distal femoral replacement) with possible transfer to [facility], pending MRI/CT of entire pelvis, left femur and tibia.
[2018-10-17] MEDS: AMITRIPTYLINE HCL 25 MG TABLET (FP) PO SCH (22:10)
[2018-10-17] MEDS: ALPRAZolam 2 MG TABLET PO SCH (22:10)
[2018-10-17] MEDS: LIDOCAINE PATCH REMOVAL MC SCH ×2 (22:14)
[2018-10-18] MEDS: oxyCODONE HCL 5 MG TABLET PO PRN ×3 (06:24→23:17)
[2018-10-18] MEDS: GABAPENTIN 300 MG CAPSULE (FP) PO SCH ×4 (06:25→21:18)
[2018-10-18] MEDS: PORTA CATH FLUSH 10 ML IVPUSH PRN ×2 (06:27→11:00)
[2018-10-18 07:57] LABS: BASO % 0.8 % (0-2.0); EOS % 0.2 % (0-4.5); HEMATOCRIT 25.6 % (32.4-45.2); HEMOGLOBIN 8.6 GM/dL (10.7-15.3); LYMPH % 21.2 % (8-40); MCH 29.7 pg (25.7-33.7); MCHC 33.6 g/dl (32.0-36.0); MEAN CELL VOLUME 88.4 fl (80-96); MEAN PLT VOLUME 6.8 fl (7.5-11.1); MONO % 9.8 % (3.8-10.2); PLATELET COUNT 174 K/MM3 (134-434); WHITE BLOOD COUNT 3.8 K/mm3 (4.0-10.0)
[2018-10-18 08:41] LABS: ALBUMIN 2.5 g/dl (3.4-5.0); BILIRUBIN,TOTAL 0.5 mg/dL (0.2-1); BLOOD UREA NITROGEN 14.4 mg/dL (7-18); CREATININE 0.8 mg/dL (0.55-1.3); POTASSIUM 4.1 mmol/L (3.5-5.1); TOT PROT 5.7 g/dl (6.4-8.2)
[2018-10-18] MEDS ORDERED: DEXTROSE 5%-WATER 100 ML IVPB ONE (08:44)
[2018-10-18] MEDS: LIDOCAINE 5% TOPICAL PATCH TP SCH ×2 (09:20→13:17)
[2018-10-18] MEDS: SUCRALFATE 1 GM/10 ML UNIT DOSE CUPS PO SCH ×4 (09:21→21:18)
[2018-10-18] MEDS: morphine SO4 SUSTAINED ACTING 15 MG TABLET.SA PO SCH ×3 (09:21→21:17)
[2018-10-18] MEDS: metoPROLOL SUCCINATE 25 MG TAB.SR.24H (FP) PO SCH (09:22)
[2018-10-18] MEDS: DEXAMETHASONE 4 MG TABLET (FP) PO SCH (09:22)
[2018-10-18] MEDS: HYDROCHLOROTHIAZIDE 12.5 MG CAPSULE (FP) PO SCH (09:22)
[2018-10-18] MEDS: POLYETHYLENE GLYCOL 3350 119 GM BTL PO SCH ×2 (09:22→21:18)
[2018-10-18] MEDS: RANITIDINE HCL 150 MG TABLET (FP) PO SCH ×3 (09:22→21:18)
[2018-10-18] MEDS: CEFTRIAXONE 2 GM in DEXTROSE 5%-WATER 100 ML IVPB SCH (09:32)
[2018-10-18 10:19] LABS: ANISOCYTOSIS 0; MACROCYTOSIS 0; PLATELET ESTIMATE NORMAL
--- NOTE | 2018-10-18 11:59 | PN ---
Progress Note (short form) - Note Progress Note: continued knee pain patient notes less swelling eating well low grade temp this weekend- repeat blood cultures are negative Vital Signs Period Temp Pulse Resp BP Sys/Nuñez Pulse Ox Last 24 Hr 97.8 F-98.9 F 74-90 20-22 119-148/64-87 100-100 cor-rrr lungs clear abd soft,nt ext swelling left leg unchanged no erythema CBC, BMP 10/18/18 06:42 10/18/18 06:42 Microbiology 10/16/18 13:10 Blood - Peripheral Venous Blood Culture - Preliminary NO GROWTH OBTAINED AFTER 24 HOURS, INCUBATION TO CONTINUE FOR 4 DAYS. 10/16/18 13:00 Blood - Peripheral Venous Blood Culture - Preliminary NO GROWTH OBTAINED AFTER 24 HOURS, INCUBATION TO CONTINUE FOR 4 DAYS. 10/16/18 12:30 Blood - Johann Cath Blood Culture - Preliminary NO GROWTH OBTAINED AFTER 24 HOURS, INCUBATION TO CONTINUE FOR 4 DAYS. 10/16/18 12:30 Blood - Johann Cath Blood Culture - Preliminary NO GROWTH OBTAINED AFTER 24 HOURS, INCUBATION TO CONTINUE FOR 4 DAYS. 10/16/18 13:10 Urine - Urine Clean Catch Urine Culture - Final 10/06/18 09:20 Blood - Johann Cath Blood Culture - Final NO GROWTH AFTER 5 DAYS INCUBATION 10/06/18 08:45 Blood - Johann Cath Blood Culture - Final NO GROWTH AFTER 5 DAYS INCUBATION 10/03/18 11:45 Blood - Peripheral Venous Blood Culture - Final NO GROWTH AFTER 5 DAYS INCUBATION 10/03/18 11:45 Blood - Peripheral Venous Blood Culture - Final NO GROWTH AFTER 5 DAYS INCUBATION 10/05/18 08:50 Synovial Fluid - Knee Gram Stain - Final 10/05/18 08:50 Synovial Fluid - Knee Body Fluid Culture - Final NO GROWTH OF AEROBIC ORGANISMS AFTER 48 HOURS INCUBATION 10/05/18 08:50 Synovial Fluid - Knee Anaerobic Culture - Final NO ANAEROBES WERE ISOLATED 10/02/18 00:01 Blood - Peripheral Venous Blood Culture - Final Strep Agalactiae Group B 10/02/18 00:01 Blood - Peripheral Venous Blood Culture - Final Strep Agalactiae Group B 10/02/18 02:00 Urine - Urine Clean Catch Urine Culture - Final mri- with suprapatellar effusion, +bony metastatic disease, +fracture a/p bacteremia- group b strep plan 4 weeks of ceftriaxone-now day #16 knee pain- left pathologic femur fracture- awaiting second opinion-familly considering transfer to tertiary care center surgery on hold imaging done awaiting surgical f/u s/p neutropenic fever history of metastatic breast cancer d/w Dr Amos Problem List - Problems (1) Neutropenic fever Code(s): D70.9 - NEUTROPENIA, UNSPECIFIED; R50.81 - FEVER PRESENTING WITH CONDITIONS CLASSIFIED ELSEWHERE (2) Pancytopenia Code(s): D61.818 - OTHER PANCYTOPENIA (3) Rectal bleeding Code(s): K62.5 - HEMORRHAGE OF ANUS AND RECTUM
--- NOTE | 2018-10-18 12:08 | PN ---
Progress Note (short form) - Note Progress Note: pt seen/ examined sitting in chair mri - report -- diffuse pathological disease/knee edema-- No mention of pathological fracture chronic pain issues-- says meds help afebrile repeat cultures -ve so far Vital Signs Temp 98.9 F 10/18/18 10:00 Pulse 82 10/18/18 10:00 Resp 20 10/18/18 10:00 BP 125/68 10/18/18 10:00 Pulse Ox 100 10/18/18 09:00 Intake & Output 10/17/18 10/18/18 10/18/18 23:59 11:59 23:59 Intake Total 450 250 Balance 450 250 Intake: IVPB 200 Oral 250 250 Other: Voiding Method Bedside Commode Toilet # Unmeasured Voids Void 1 Bowel Movement Yes No Active Medications Alprazolam (Xanax -) 1 mg PO HS [facility] Last Admin: 10/17/18 22:10 Dose: 1 mg Amitriptyline HCl (Elavil -) 25 mg PO HS [facility] Last Admin: 10/17/18 22:10 Dose: 25 mg Dexamethasone (Decadron -) 2 mg PO DAILY [facility] Last Admin: 10/18/18 09:22 Dose: 2 mg Gabapentin (Neurontin -) 300 mg PO TID [facility] Last Admin: 10/18/18 06:25 Dose: 300 mg Hydrochlorothiazide (Hctz -) 12.5 mg PO DAILY [facility] Last Admin: 10/18/18 09:22 Dose: 12.5 mg IV Flush (Johann-Cath Flush) 10 ml IVPUSH PRN PRN PRN Reason: protocol, maintain patency Last Admin: 10/18/18 06:27 Dose: 10 ml Ceftriaxone Sodium 2 gm/ (Dextrose) 100 mls @ 200 mls/hr IVPB DAILY [facility]; Protocol Last Admin: 10/18/18 09:32 Dose: 200 mls/hr Lidocaine (Lidoderm Patch -) 1 patch TP DAILY [facility] Last Admin: 10/18/18 09:20 Dose: 1 patch Lidocaine (Lidoderm Patch -) 1 patch TP DAILY@1300 [facility] Last Admin: 10/17/18 14:04 Dose: 1 patch Metoprolol Succinate (Toprol Xl -) 25 mg PO DAILY [facility] Last Admin: 10/18/18 09:22 Dose: 25 mg Miscellaneous (Lidoderm Patch Removal) 1 each MC DAILY@0 [facility] Last Admin: 10/17/18 22:14 Dose: Not Given Miscellaneous (Lidoderm Patch Removal) 1 each MC DAILY@0 [facility] Last Admin: 10/17/18 22:14 Dose: Not Given Morphine Sulfate (Ms Contin -) 15 mg PO BID [facility] Last Admin: 10/18/18 09:21 Dose: 15 mg Oxycodone HCl (Roxicodone -) 10 mg PO Q4H PRN PRN Reason: PAIN LEVEL 6-10 Last Admin: 10/18/18 06:24 Dose: 10 mg Polyethylene Glycol (Miralax (For Daily Use) -) 17 gm PO BID [facility] Last Admin: 10/18/18 09:22 Dose: Not Given Ranitidine HCl (Zantac -) 150 mg PO BID [facility] Last Admin: 10/18/18 09:22 Dose: 150 mg Sucralfate (Carafate Oral Suspension -) 1 gm PO QID [facility] Last Admin: 10/18/18 09:21 Dose: 1 gm CBC, BMP 10/18/18 06:42 10/18/18 06:42 Microbiology 10/16/18 13:10 Blood Culture - Preliminary Blood - Peripheral Venous NO GROWTH OBTAINED AFTER 24 HOURS, INCUBATION TO CONTINUE FOR 4 DAYS. 10/16/18 13:00 Blood Culture - Preliminary Blood - Peripheral Venous NO GROWTH OBTAINED AFTER 24 HOURS, INCUBATION TO CONTINUE FOR 4 DAYS. 10/16/18 12:30 Blood Culture - Preliminary Blood - Johann Cath NO GROWTH OBTAINED AFTER 24 HOURS, INCUBATION TO CONTINUE FOR 4 DAYS. 10/16/18 12:30 Blood Culture - Preliminary Blood - Johann Cath NO GROWTH OBTAINED AFTER 24 HOURS, INCUBATION TO CONTINUE FOR 4 DAYS. 10/16/18 13:10 Urine Culture - Final Urine - Urine Clean Catch Physical S1 S2 RRR Lungs clear Abd- soft, NT edema left leg, left knee Alert/ awake a/p continue present care need ortho f/u -- input as well as from onclolgy. Will follow discussed with Dr. Rodriguez/ food and beverage manager/ Nursing staff also Problem List - Problems (1) Fever Code(s): R50.9 - FEVER, UNSPECIFIED Qualifiers: Fever type: unspecified Qualified Code(s): R50.9 - Fever, unspecified (2) Metastatic breast cancer Code(s): C50.919 - MALIGNANT NEOPLASM OF UNSP SITE OF UNSPECIFIED FEMALE BREAST (3) Pancytopenia Code(s): D61.818 - OTHER PANCYTOPENIA (4) Neutropenic sepsis Code(s): A41.9 - SEPSIS, UNSPECIFIED ORGANISM; D70.9 - NEUTROPENIA, UNSPECIFIED (5) Sepsis Code(s): A41.9 - SEPSIS, UNSPECIFIED ORGANISM Problem List - Problems (1) Fever Code(s): R50.9 - FEVER, UNSPECIFIED Qualifiers: Fever type: unspecified Qualified Code(s): R50.9 - Fever, unspecified (2) Metastatic breast cancer Code(s): C50.919 - MALIGNANT NEOPLASM OF UNSP SITE OF UNSPECIFIED FEMALE BREAST (3) Pancytopenia Code(s): D61.818 - OTHER PANCYTOPENIA (4) Neutropenic sepsis Code(s): A41.9 - SEPSIS, UNSPECIFIED ORGANISM; D70.9 - NEUTROPENIA, UNSPECIFIED (5) Sepsis Code(s): A41.9 - SEPSIS, UNSPECIFIED ORGANISM
--- NOTE | 2018-10-18 17:32 | PN ---
Physical Exam: SUBJECTIVE: Patient seen and examined. No new complaints. no events overnight. Sitting comfortably in the chair. MRI report noted. OBJECTIVE: Vital Signs Period Temp Pulse Resp BP Sys/Nuñez Pulse Ox Last 24 Hr 97.8 F-98.9 F 74-90 20-22 119-148/64-87 100-100 GENERAL: The patient is awake, alert, and fully oriented, in no acute distress. HEAD: Normal with no signs of trauma. EYES: PERRL, extraocular movements intact, sclera anicteric, conjunctiva clear. No ptosis. ENT: oropharynx clear without exudates, moist mucous membranes. NECK: supple. LUNGS: Breath sounds equal, clear to auscultation bilaterally, no wheezes, no crackles, no accessory muscle use. HEART: Regular rate and rhythm, S1, S2 without murmur, rub or gallop. ABDOMEN: Soft, nontender, nondistended, normoactive bowel sounds Laboratory Results - last 24 hr 10/18/18 10/18/18 06:42 06:42 WBC 3.8 L RBC 2.90 L Hgb 8.6 L Hct 25.6 L MCV 88.4 MCH 29.7 MCHC 33.6 RDW 19.0 H Plt Count 174 MPV 6.8 L Absolute Neuts (auto) 2.6 Neutrophils % 68.0 Neutrophils % (Manual) 65.3 Band Neutrophils % 0.0 Lymphocytes % 21.2 D Lymphocytes % (Manual) 18.8 D Monocytes % 9.8 Monocytes % (Manual) 10 Eosinophils % 0.2 Eosinophils % (Manual) 2.0 D Basophils % 0.8 Basophils % (Manual) 0.0 Myelocytes % (Man) 0 D Promyelocytes % (Man) 0 Blast Cells % (Manual) 0 Nucleated RBC % 3 H Metamyelocytes 0 D Hypochromia 0 Platelet Estimate Normal Polychromasia 0 Poikilocytosis 0 Anisocytosis 0 Microcytosis 0 Macrocytosis 0 Sodium 137 Potassium 4.1 Chloride 103 Carbon Dioxide 28 Anion Gap 6 L BUN 14.4 Creatinine 0.8 Est GFR (CKD-EPI)AfAm 89.04 Est GFR (CKD-EPI)NonAf 76.83 Random Glucose 172 H Calcium 8.0 L Total Bilirubin 0.5 AST 36 ALT 67 H Alkaline Phosphatase 437 H Total Protein 5.7 L Albumin 2.5 L Active Medications Generic Name Dose Route Start Last Admin Trade Name Freq PRN Reason Stop Dose Admin Alprazolam 1 mg 10/10/18 01:30 10/17/18 22:10 Xanax - PO 1 mg HS CARTER Administration Amitriptyline HCl 25 mg 10/02/18 22:00 10/17/18 22:10 Elavil - PO 25 mg HS CARTER Administration Dexamethasone 2 mg 10/02/18 14:45 10/18/18 09:22 Decadron - PO 2 mg DAILY CARTER Administration Gabapentin 300 mg 10/02/18 06:00 10/18/18 13:17 Neurontin - PO 300 mg TID CARTER Administration Hydrochlorothiazide 12.5 mg 10/10/18 11:15 10/18/18 09:22 Hctz - PO 12.5 mg DAILY CARTER Administration IV Flush 10 ml 10/18/18 00:06 10/18/18 06:27 Johann-Cath Flush IVPUSH 10 ml PRN PRN Administration protocol, maintain patency Ceftriaxone Sodium 2 gm/ 100 mls @ 200 mls/hr 10/05/18 10:00 10/18/18 09:32 Dextrose IVPB 200 mls/hr DAILY CARTER Administration Protocol Lidocaine 1 patch 10/06/18 14:00 10/18/18 09:20 Lidoderm Patch - TP 1 patch DAILY CARTER Administration Lidocaine 1 patch 10/16/18 13:00 10/18/18 13:17 Lidoderm Patch - TP 1 patch DAILY@1300 CARTER Administration Metoprolol Succinate 25 mg 10/02/18 10:00 10/18/18 09:22 Toprol Xl - PO 25 mg DAILY CARTER Administration Miscellaneous 1 each 10/06/18 22:00 10/17/18 22:14 Lidoderm Patch Removal MC Not Given DAILY@2200 CARTER Miscellaneous 1 each 10/16/18 22:00 10/17/18 22:14 Lidoderm Patch Removal MC Not Given DAILY@2200 [facility] Morphine Sulfate 15 mg 10/02/18 10:00 10/18/18 09:21 Ms Contin - PO 15 mg BID CARTER Administration Oxycodone HCl 10 mg 10/18/18 12:54 10/18/18 13:20 Roxicodone - PO 10 mg Q4H PRN Administration PAIN LEVEL 6-10 Polyethylene Glycol 17 gm 10/04/18 15:45 10/18/18 09:22 Miralax (For Daily Use) - PO Not Given BID CARTER Ranitidine HCl 150 mg 10/02/18 02:45 10/18/18 09:22 Zantac - PO 150 mg BID CARTER Administration Sucralfate 1 gm 10/05/18 18:00 10/18/18 13:17 Carafate Oral Suspension - PO 1 gm QID CARTER Administration ASSESSMENT/PLAN: 68F w/ ER/GA positive, 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 Found to have strep agalactiae bacteremia. On 4 weeks course of Ceftriaxone. #Metastatic Breast Ca w bone mets MRI Impression: 1. Areas of metastatic disease involving the distal femur, lateral tibial plateau, proximal tibial diametaphysis, mid diaphysis of the tibia, and the proximal to mid fibula. 2. Large suprapatellar joint effusion and soft tissue edema of the knee and tibia. 3. Focal fluid between the medial gastrocnemius and medial soleus muscles superficial to the medial gastrocnemius muscle which could be due to an injury to the medial gastrocnemius muscle or ruptured popliteal cyst extending distally. Had prior RT. Now being considered for surgery (knee reconstruction with distal femoral replacement) with possible transfer to [facility] type - Emergency Visit Emergency Visit: Yes ED Registration Date: 10/02/18 Care time: The patient presented to the Emergency Department on the above date and was hospitalized for further evaluation of their emergent condition. - New Patient This patient is new to me today: Yes Date on this admission: 10/18/18 - Critical Care Critical Care patient: No
--- NOTE | 2018-10-18 18:07 | PN ---
Progress Note (short form) - Note Progress Note: Patient seen and examined Left knee pain Last Vital Signs Temp Pulse Resp BP Pulse Ox 98.6 F 81 20 127/75 100 10/18/18 13:51 10/18/18 13:51 10/18/18 13:51 10/18/18 13:51 10/18/18 09:00 Cor: RSR, No murmurs, No gallops Lungs: Clear to P&A Abd: Soft, Normal bowel sounds, No organomegaly Ext:LLE 1+ edema Abnormal Lab Results 10/18/18 10/18/18 06:42 06:42 WBC 3.8 L RBC 2.90 L Hgb 8.6 L Hct 25.6 L RDW 19.0 H MPV 6.8 L Nucleated RBC % 3 H Anion Gap 6 L Random Glucose 172 H Calcium 8.0 L ALT 67 H Alkaline Phosphatase 437 H Total Protein 5.7 L Albumin 2.5 L Home Medication List Medication Instructions Recorded Confirmed Type Alprazolam [Xanax] 1 mg PO HS 05/30/17 10/01/18 History Gabapentin 300 mg PO TID 05/30/17 10/01/18 History Lisinopril/Hydrochlorothiazide 1 each PO DAILY 05/30/17 10/01/18 History [Lisinopril-Hctz 10-12.5 mg Tab] Metoprolol Succinate [Toprol Xl] 25 mg PO DAILY 05/30/17 10/01/18 History Tramadol HCl 50 mg PO PRN 05/30/17 10/01/18 History Oxycodone HCl/Acetaminophen 1 each PO Q4H PRN 02/05/18 10/01/18 History [Oxycodon-Acetaminophen 7.5-325] Active Medications Generic Name Dose Route Start Last Admin Trade Name Freq PRN Reason Stop Dose Admin Alprazolam 1 mg 10/10/18 01:30 10/17/18 22:10 Xanax - PO 1 mg HS CARTER Administration Amitriptyline HCl 25 mg 10/02/18 22:00 10/17/18 22:10 Elavil - PO 25 mg HS CARTER Administration Dexamethasone 2 mg 10/02/18 14:45 10/18/18 09:22 Decadron - PO 2 mg DAILY CARTER Administration Gabapentin 300 mg 10/02/18 06:00 10/18/18 13:17 Neurontin - PO 300 mg TID CARTER Administration Hydrochlorothiazide 12.5 mg 10/10/18 11:15 10/18/18 09:22 Hctz - PO 12.5 mg DAILY CARTER Administration IV Flush 10 ml 10/18/18 00:06 10/18/18 06:27 Johann-Cath Flush IVPUSH 10 ml PRN PRN Administration protocol, maintain patency Ceftriaxone Sodium 2 gm/ 100 mls @ 200 mls/hr 10/05/18 10:00 10/18/18 09:32 Dextrose IVPB 200 mls/hr DAILY CARTER Administration Protocol Lidocaine 1 patch 10/06/18 14:00 10/18/18 09:20 Lidoderm Patch - TP 1 patch DAILY CARTER Administration Lidocaine 1 patch 10/16/18 13:00 10/18/18 13:17 Lidoderm Patch - TP 1 patch DAILY@1300 CARTER Administration Metoprolol Succinate 25 mg 10/02/18 10:00 10/18/18 09:22 Toprol Xl - PO 25 mg DAILY CARTER Administration Miscellaneous 1 each 10/06/18 22:00 10/17/18 22:14 Lidoderm Patch Removal MC Not Given DAILY@2200 [facility] Miscellaneous 1 each 10/16/18 22:00 10/17/18 22:14 Lidoderm Patch Removal MC Not Given DAILY@2200 [facility] Morphine Sulfate 15 mg 10/02/18 10:00 10/18/18 09:21 Ms Contin - PO 15 mg BID CARTER Administration Oxycodone HCl 10 mg 10/18/18 12:54 10/18/18 13:20 Roxicodone - PO 10 mg Q4H PRN Administration PAIN LEVEL 6-10 Polyethylene Glycol 17 gm 10/04/18 15:45 10/18/18 09:22 Miralax (For Daily Use) - PO Not Given BID [facility] Ranitidine HCl 150 mg 10/02/18 02:45 10/18/18 09:22 Zantac - PO 150 mg BID CARTER Administration Sucralfate 1 gm 10/05/18 18:00 10/18/18 13:17 Carafate Oral Suspension - PO 1 gm QID CARTER Administration A/P 68F w/ ER/MT positive, 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 Found to have strep agalactiae bacteremia. On D no. 16 of 4week rocephin C/w dexamethasone 2 mg daily Pelvic vein doppler for eval of LLE swelling also neg Left femur fracture. Had prior RT. MRI -- metastatic disease distal femur, proximal tibia/fibula, gastrocnemius injury ? ruptured popiteal cyst Orthopaedics follow up Ongoing management discussions with family
[2018-10-18] MEDS: ALPRAZolam 2 MG TABLET PO SCH ×2 (20:51→21:18)
[2018-10-18] MEDS: AMITRIPTYLINE HCL 25 MG TABLET (FP) PO SCH ×2 (20:52→21:18)
[2018-10-18] MEDS: LIDOCAINE PATCH REMOVAL MC SCH ×2 (21:18)
[2018-10-18] MEDS ORDERED: PORTA CATH FLUSH 10 ML IVPUSH ONE (21:55)
[2018-10-19] MEDS: oxyCODONE HCL 5 MG TABLET PO PRN ×2 (05:48→18:18)
[2018-10-19] MEDS: GABAPENTIN 300 MG CAPSULE (FP) PO SCH ×3 (05:48→21:08)
[2018-10-19] MEDS ORDERED: DEXTROSE 5%-WATER 100 ML IVPB ONE (08:50)
[2018-10-19] MEDS: HYDROCHLOROTHIAZIDE 12.5 MG CAPSULE (FP) PO SCH (09:12)
[2018-10-19] MEDS: RANITIDINE HCL 150 MG TABLET (FP) PO SCH ×2 (09:12→21:08)
[2018-10-19] MEDS: metoPROLOL SUCCINATE 25 MG TAB.SR.24H (FP) PO SCH (09:12)
[2018-10-19] MEDS: morphine SO4 SUSTAINED ACTING 15 MG TABLET.SA PO SCH ×2 (09:12→21:07)
[2018-10-19] MEDS: SUCRALFATE 1 GM/10 ML UNIT DOSE CUPS PO SCH ×4 (09:12→21:08)
[2018-10-19] MEDS: DEXAMETHASONE 4 MG TABLET (FP) PO SCH (09:13)
[2018-10-19] MEDS: LIDOCAINE 5% TOPICAL PATCH TP SCH ×2 (09:15→13:12)
[2018-10-19] MEDS: POLYETHYLENE GLYCOL 3350 119 GM BTL PO SCH ×2 (09:16→21:10)
[2018-10-19] MEDS: CEFTRIAXONE 2 GM in DEXTROSE 5%-WATER 100 ML IVPB SCH (09:17)
--- NOTE | 2018-10-19 12:43 | PN ---
Progress Note, Physician Chief Complaint: Events noted Awaiting further Ortho input regarding surgery History of Present Illness: Patient was seen and examined. Awake and alert. Chart was reviewed Denies chest pain, SOB or palpitations - Current Medication List Current Medications: Active Medications Alprazolam (Xanax -) 1 mg PO HS [facility] Last Admin: 10/18/18 21:18 Dose: Not Given Amitriptyline HCl (Elavil -) 25 mg PO HS [facility] Last Admin: 10/18/18 21:18 Dose: Not Given Dexamethasone (Decadron -) 2 mg PO DAILY [facility] Last Admin: 10/19/18 09:13 Dose: 2 mg Gabapentin (Neurontin -) 300 mg PO TID [facility] Last Admin: 10/19/18 05:48 Dose: 300 mg Hydrochlorothiazide (Hctz -) 12.5 mg PO DAILY [facility] Last Admin: 10/19/18 09:12 Dose: 12.5 mg IV Flush (Johann-Cath Flush) 10 ml IVPUSH PRN PRN PRN Reason: protocol, maintain patency Last Admin: 10/18/18 11:00 Dose: 10 ml Ceftriaxone Sodium 2 gm/ (Dextrose) 100 mls @ 200 mls/hr IVPB DAILY [facility]; Protocol Last Admin: 10/19/18 09:17 Dose: 200 mls/hr Lidocaine (Lidoderm Patch -) 1 patch TP DAILY [facility] Last Admin: 10/19/18 09:15 Dose: 1 patch Lidocaine (Lidoderm Patch -) 1 patch TP DAILY@1300 [facility] Last Admin: 10/18/18 13:17 Dose: 1 patch Metoprolol Succinate (Toprol Xl -) 25 mg PO DAILY [facility] Last Admin: 10/19/18 09:12 Dose: 25 mg Miscellaneous (Lidoderm Patch Removal) 1 each MC DAILY@2200 [facility] Last Admin: 10/18/18 21:18 Dose: Not Given Miscellaneous (Lidoderm Patch Removal) 1 each MC DAILY@2200 [facility] Last Admin: 10/18/18 21:18 Dose: Not Given Morphine Sulfate (Ms Contin -) 15 mg PO BID [facility] Last Admin: 10/19/18 09:12 Dose: 15 mg Oxycodone HCl (Roxicodone -) 10 mg PO Q4H PRN PRN Reason: PAIN LEVEL 6-10 Last Admin: 10/19/18 05:48 Dose: 10 mg Polyethylene Glycol (Miralax (For Daily Use) -) 17 gm PO BID [facility] Last Admin: 10/19/18 09:16 Dose: Not Given Ranitidine HCl (Zantac -) 150 mg PO BID [facility] Last Admin: 10/19/18 09:12 Dose: 150 mg Sucralfate (Carafate Oral Suspension -) 1 gm PO QID [facility] Last Admin: 10/19/18 09:12 Dose: 1 gm - Objective Vital Signs: Vital Signs Temperature 98.2 F 10/19/18 08:16 Pulse Rate 76 10/19/18 08:16 Respiratory Rate 20 10/19/18 09:00 Blood Pressure 119/69 10/19/18 08:16 O2 Sat by Pulse Oximetry (%) 99 10/19/18 09:00 Neck: Yes: Supple Cardiovascular: Yes: Regular Rate and Rhythm, S1, S2 Respiratory: Yes: CTA Bilaterally Gastrointestinal: Yes: Normal Bowel Sounds, Soft. No: Tenderness Edema: No Labs: CBC, BMP 10/18/18 06:42 10/18/18 06:42 Problem List - Problems (1) Pancytopenia Code(s): D61.818 - OTHER PANCYTOPENIA (2) Pathologic fracture Code(s): M84.40XA - PATHOLOGICAL FRACTURE, UNSP SITE, INIT ENCNTR FOR FRACTURE Qualifiers: Pathology associated with fracture: neoplastic disease Site of pathological fracture: femur Encounter type: subsequent encounter Laterality : left (3) Preoperative cardiovascular examination Code(s): Z01.810 - ENCOUNTER FOR PREPROCEDURAL CARDIOVASCULAR EXAMINATION (4) Metastatic breast cancer Code(s): C50.919 - MALIGNANT NEOPLASM OF UNSP SITE OF UNSPECIFIED FEMALE BREAST (5) HTN (hypertension) Code(s): I10 - ESSENTIAL (PRIMARY) HYPERTENSION Qualifiers: Hypertension type: essential hypertension Qualified Code(s): I10 - Essential (primary) hypertension Assessment/Plan 1. Pre-op CV evaluation prior to ORIF left distal femur and proximal tibial pathologic fracture with metastasis 2. Metastatic breast cancer involving left femur, proximal tibia and spine 3. Hypertension 4. Group B strep bacteremia 5. Anemia post transfusion PLAN: 1. Await Ortho input. No absolute contraindication in view of absence of ischemic symptoms, decompensated congestive heart failure or malignant arrhythmia. 2. Hematology input noted 3. Continue Zesteretic 10/12.5 mg QD and Toprol XL 25 mg QD 4. IV antibiotics per ID 5. Analgesia as needed and DVT prophylaxis Cristian Wong MD
--- NOTE | 2018-10-19 13:31 | PN ---
Progress Note (short form) - Note Progress Note: has pain in left knee- left leg is swollen son at bedside Vital Signs - 24 hr 10/18/18 10/18/18 10/18/18 13:51 18:33 20:58 Temperature 98.6 F 98.2 F 98.1 F Pulse Rate 81 81 75 Respiratory 20 20 20 Rate Blood Pressure 127/75 130/65 116/61 O2 Sat by Pulse Oximetry (%) 10/18/18 10/19/18 10/19/18 21:00 05:42 08:16 Temperature 98 F 98.2 F Pulse Rate 78 76 Respiratory 20 20 20 Rate Blood Pressure 108/65 119/69 O2 Sat by Pulse 100 Oximetry (%) 10/19/18 09:00 Temperature Pulse Rate Respiratory 20 Rate Blood Pressure O2 Sat by Pulse 99 Oximetry (%) Current Medications Generic Name Dose Route Start Last Admin Trade Name Freq PRN Reason Stop Dose Admin Alprazolam 1 mg 10/10/18 01:30 10/18/18 21:18 Xanax - PO Not Given HS CARTER Amitriptyline HCl 25 mg 10/02/18 22:00 10/18/18 21:18 Elavil - PO Not Given HS CARTER Dexamethasone 2 mg 10/02/18 14:45 10/19/18 09:13 Decadron - PO 2 mg DAILY CARTER Administration Gabapentin 300 mg 10/02/18 06:00 10/19/18 13:12 Neurontin - PO 300 mg TID CARTER Administration Hydrochlorothiazide 12.5 mg 10/10/18 11:15 10/19/18 09:12 Hctz - PO 12.5 mg DAILY CARTER Administration IV Flush 10 ml 10/18/18 00:06 10/18/18 11:00 Johann-Cath Flush IVPUSH 10 ml PRN PRN Administration protocol, maintain patency Ceftriaxone Sodium 2 gm/ 100 mls @ 200 mls/hr 10/05/18 10:00 10/19/18 09:17 Dextrose IVPB 200 mls/hr DAILY CARTER Administration Protocol Lidocaine 1 patch 10/06/18 14:00 10/19/18 09:15 Lidoderm Patch - TP 1 patch DAILY CARTER Administration Lidocaine 1 patch 10/16/18 13:00 10/19/18 13:12 Lidoderm Patch - TP 1 patch DAILY@1300 CARTER Administration Metoprolol Succinate 25 mg 10/02/18 10:00 10/19/18 09:12 Toprol Xl - PO 25 mg DAILY CARTER Administration Miscellaneous 1 each 10/06/18 22:00 10/18/18 21:18 Lidoderm Patch Removal MC Not Given DAILY@2200 [facility] Miscellaneous 1 each 10/16/18 22:00 10/18/18 21:18 Lidoderm Patch Removal MC Not Given DAILY@2200 [facility] Morphine Sulfate 15 mg 10/02/18 10:00 10/19/18 09:12 Ms Contin - PO 15 mg BID CARTER Administration Oxycodone HCl 10 mg 10/18/18 12:54 10/19/18 05:48 Roxicodone - PO 10 mg Q4H PRN Administration PAIN LEVEL 6-10 Polyethylene Glycol 17 gm 10/04/18 15:45 10/19/18 09:16 Miralax (For Daily Use) - PO Not Given BID CARTER Ranitidine HCl 150 mg 10/02/18 02:45 10/19/18 09:12 Zantac - PO 150 mg BID CARTER Administration Sucralfate 1 gm 10/05/18 18:00 10/19/18 13:12 Carafate Oral Suspension - PO 1 gm QID CARTER Administration S1 S2 RRR Lungs clear Abd- soft, NT edema left leg, left knee warm+ PLAN Pt was seen by Dr Ny yesterday-- he recommended surgery on thursday Pt and her son want to persue going to [facility] for the surgery- they would like an oncologic ortho surgeon . I have asked Dr Galvan who will be consulting Ortho/Oncology surgeon at [facility]. Pt does not wish to have DR Ny nor Dr Harman perform surgery Pain control is important here as well as her ambulatory status All scans /MRI noted and discussed with pt and son she will need to continue with iv antibiotics per ID surgery planned for this Thursday but I will cancel this --pt prefers to do it in [facility] Pulmonary and cardiology has cleared the patient discussed with pt and family in detail, discussed with staff -- time spent 45 min d/w staff Problem List - Problems (1) Fever Code(s): R50.9 - FEVER, UNSPECIFIED Qualifiers: Fever type: unspecified Qualified Code(s): R50.9 - Fever, unspecified (2) Hyperbilirubinemia Code(s): E80.6 - OTHER DISORDERS OF BILIRUBIN METABOLISM (3) Hyponatremia Code(s): E87.1 - HYPO-OSMOLALITY AND HYPONATREMIA (4) Neutropenic fever Code(s): D70.9 - NEUTROPENIA, UNSPECIFIED; R50.81 - FEVER PRESENTING WITH CONDITIONS CLASSIFIED ELSEWHERE (5) Neutropenic sepsis Code(s): A41.9 - SEPSIS, UNSPECIFIED ORGANISM; D70.9 - NEUTROPENIA, UNSPECIFIED (6) Pancytopenia Code(s): D61.818 - OTHER PANCYTOPENIA (7) Rectal bleeding Code(s): K62.5 - HEMORRHAGE OF ANUS AND RECTUM (8) Systemic inflammatory response syndrome (SIRS) Code(s): R65.10 - SIRS OF NON-INFECTIOUS ORIGIN W/O ACUTE ORGAN DYSFUNCTION (9) Metastatic breast cancer Code(s): C50.919 - MALIGNANT NEOPLASM OF UNSP SITE OF UNSPECIFIED FEMALE BREAST (10) Pathologic fracture Code(s): M84.40XA - PATHOLOGICAL FRACTURE, UNSP SITE, INIT ENCNTR FOR FRACTURE Qualifiers: Pathology associated with fracture: neoplastic disease Site of pathological fracture: femur Encounter type: subsequent encounter Laterality : left
--- NOTE | 2018-10-19 18:25 | PN ---
Progress Note (short form) - Note Progress Note: Patient seen with son and in attendance Spent in excess of 45 minutes in discussion. Much of this was discussed previously. Patient aware that ultimate success or failure of treatment will be her ability to respond to future treatment with chemotherapy. Aware that surgical intervention is palliative and the goal is to improve the quality of life, allow her to be able to weight bear and not be bed or chair confined for the remainder of her life. Also to prevent patholgic frature if patient is to weight bear. Aware that surgery will not cure patient . Aware that patient will not be cured by any treatment and her longevity is contingent upon her ability to be treated and respond. Patient has requested that I contact [facility] oncologic orthopedist and will honor their request.
[2018-10-19] MEDS ORDERED: PORTA CATH FLUSH 10 ML IVPUSH ONE (19:56)
[2018-10-19] MEDS: AMITRIPTYLINE HCL 25 MG TABLET (FP) PO SCH (21:07)
[2018-10-19] MEDS: ALPRAZolam 2 MG TABLET PO SCH (21:07)
[2018-10-19] MEDS: LIDOCAINE PATCH REMOVAL MC SCH ×2 (21:08)
[2018-10-20] MEDS: oxyCODONE HCL 5 MG TABLET PO PRN ×2 (04:50→15:24)
[2018-10-20] MEDS: GABAPENTIN 300 MG CAPSULE (FP) PO SCH ×3 (05:16→21:27)
[2018-10-20 06:53] LABS: BASO % 0.5 % (0-2.0); EOS % 0.3 % (0-4.5); HEMOGLOBIN 8.7 GM/dL (10.7-15.3); LYMPH % 22.1 % (8-40); MCH 29.7 pg (25.7-33.7); MCHC 33.3 g/dl (32.0-36.0); MEAN CELL VOLUME 89.2 fl (80-96); MEAN PLT VOLUME 6.8 fl (7.5-11.1); MONO % 12.1 % (3.8-10.2); PLATELET COUNT 205 K/MM3 (134-434); RBC 2.92 M/mm3 (3.60-5.2); RDW 19.1 % (11.6-15.6)
[2018-10-20 08:06] LABS: ALBUMIN 1.7 g/dl (3.4-5.0); BILIRUBIN,TOTAL 0.4 mg/dL (0.2-1); BLOOD UREA NITROGEN 11.4 mg/dL (7-18); CREATININE 0.4 mg/dL (0.55-1.3); TOT PROT 3.9 g/dl (6.4-8.2)
[2018-10-20 08:09] LABS: POTASSIUM 2.9 mmol/L (3.5-5.1)
[2018-10-20 08:10] LABS: CALCIUM 5.3 mg/dL (8.5-10.1)
[2018-10-20] MEDS ORDERED: DEXTROSE 5%-WATER 100 ML IVPB ONE (09:04)
[2018-10-20 10:02] LABS: ANISOCYTOSIS 1+; MACROCYTOSIS 0; PLATELET ESTIMATE NORMAL
[2018-10-20] MEDS: CEFTRIAXONE 2 GM in DEXTROSE 5%-WATER 100 ML IVPB SCH (10:02)
[2018-10-20] MEDS: LIDOCAINE 5% TOPICAL PATCH TP SCH ×2 (10:02→13:27)
[2018-10-20] MEDS: SUCRALFATE 1 GM/10 ML UNIT DOSE CUPS PO SCH ×4 (10:02→21:24)
[2018-10-20] MEDS: HYDROCHLOROTHIAZIDE 12.5 MG CAPSULE (FP) PO SCH (10:03)
[2018-10-20] MEDS: morphine SO4 SUSTAINED ACTING 15 MG TABLET.SA PO SCH ×2 (10:03→21:24)
[2018-10-20] MEDS: RANITIDINE HCL 150 MG TABLET (FP) PO SCH ×2 (10:03→21:24)
[2018-10-20] MEDS: DEXAMETHASONE 4 MG TABLET (FP) PO SCH (10:03)
[2018-10-20] MEDS: metoPROLOL SUCCINATE 25 MG TAB.SR.24H (FP) PO SCH (10:04)
[2018-10-20] MEDS: POLYETHYLENE GLYCOL 3350 119 GM BTL PO SCH ×2 (10:05→21:25)
--- NOTE | 2018-10-20 10:28 | PN ---
Progress Note, Physician History of Present Illness: Left knee pain referable to left distal femur left knee pathologic fracture due to mets now in knee immobilizer. Had prior RT. Considering transfer to [facility] oncology service. Regarding cardiovascular symptoms, denies chest pain, dyspnea, near or true syncope, palpitations, orthopnea, PND, or LE edema. - Current Medication List Current Medications: Active Medications Alprazolam (Xanax -) 1 mg PO HS [facility] Last Admin: 10/19/18 21:07 Dose: 1 mg Amitriptyline HCl (Elavil -) 25 mg PO HS [facility] Last Admin: 10/19/18 21:07 Dose: 25 mg Dexamethasone (Decadron -) 2 mg PO DAILY [facility] Last Admin: 10/20/18 10:03 Dose: 2 mg Gabapentin (Neurontin -) 300 mg PO TID [facility] Last Admin: 10/20/18 05:16 Dose: 300 mg Hydrochlorothiazide (Hctz -) 12.5 mg PO DAILY [facility] Last Admin: 10/20/18 10:03 Dose: 12.5 mg IV Flush (Johann-Cath Flush) 10 ml IVPUSH PRN PRN PRN Reason: protocol, maintain patency Last Admin: 10/18/18 11:00 Dose: 10 ml Ceftriaxone Sodium 2 gm/ (Dextrose) 100 mls @ 200 mls/hr IVPB DAILY [facility]; Protocol Last Admin: 10/20/18 10:02 Dose: 200 mls/hr Lidocaine (Lidoderm Patch -) 1 patch TP DAILY [facility] Last Admin: 10/20/18 10:02 Dose: 1 patch Lidocaine (Lidoderm Patch -) 1 patch TP DAILY@1300 [facility] Last Admin: 10/19/18 13:12 Dose: 1 patch Metoprolol Succinate (Toprol Xl -) 25 mg PO DAILY [facility] Last Admin: 10/20/18 10:04 Dose: 25 mg Miscellaneous (Lidoderm Patch Removal) 1 each MC DAILY@2200 [facility] Last Admin: 10/19/18 21:08 Dose: Not Given Miscellaneous (Lidoderm Patch Removal) 1 each MC DAILY@2200 [facility] Last Admin: 10/19/18 21:08 Dose: Not Given Morphine Sulfate (Ms Contin -) 15 mg PO BID [facility] Last Admin: 10/20/18 10:03 Dose: 15 mg Oxycodone HCl (Roxicodone -) 10 mg PO Q4H PRN PRN Reason: PAIN LEVEL 6-10 Last Admin: 10/20/18 04:50 Dose: 10 mg Polyethylene Glycol (Miralax (For Daily Use) -) 17 gm PO BID [facility] Last Admin: 10/20/18 10:05 Dose: Not Given Ranitidine HCl (Zantac -) 150 mg PO BID [facility] Last Admin: 10/20/18 10:03 Dose: 150 mg Sucralfate (Carafate Oral Suspension -) 1 gm PO QID [facility] Last Admin: 10/20/18 10:02 Dose: 1 gm - Objective Vital Signs: Vital Signs Temperature 97.9 F 10/20/18 09:59 Pulse Rate 89 10/20/18 09:59 Respiratory Rate 20 10/20/18 09:59 Blood Pressure 149/85 10/20/18 09:59 O2 Sat by Pulse Oximetry (%) 99 10/19/18 19:57 Constitutional: Yes: No Distress, Calm Neck: Yes: Supple Cardiovascular: Yes: Regular Rate and Rhythm Respiratory: Yes: Regular, CTA Bilaterally Gastrointestinal: Yes: Normal Bowel Sounds, Soft Edema: No Labs: CBC, BMP 10/20/18 06:00 10/20/18 06:00 INR, PTT INR 1.01 (0.83-1.09) 10/14/18 06:05 Problem List - Problems (1) Pathologic fracture Code(s): M84.40XA - PATHOLOGICAL FRACTURE, UNSP SITE, INIT ENCNTR FOR FRACTURE Qualifiers: Pathology associated with fracture: neoplastic disease Site of pathological fracture: femur Encounter type: subsequent encounter Laterality : left (2) Preoperative cardiovascular examination Code(s): Z01.810 - ENCOUNTER FOR PREPROCEDURAL CARDIOVASCULAR EXAMINATION (3) Rectal bleeding Code(s): K62.5 - HEMORRHAGE OF ANUS AND RECTUM (4) Metastatic breast cancer Code(s): C50.919 - MALIGNANT NEOPLASM OF UNSP SITE OF UNSPECIFIED FEMALE BREAST (5) Cancer, metastatic to bone Code(s): C79.51 - SECONDARY MALIGNANT NEOPLASM OF BONE (6) HTN (hypertension) Code(s): I10 - ESSENTIAL (PRIMARY) HYPERTENSION Qualifiers: Hypertension type: essential hypertension Qualified Code(s): I10 - Essential (primary) hypertension (7) Pain from bone metastases Code(s): G89.3 - NEOPLASM RELATED PAIN (ACUTE) (CHRONIC); C79.51 - SECONDARY MALIGNANT NEOPLASM OF BONE Assessment/Plan 10/04/2018 Normal LV size and fxn, LVEF 65-70%, normal atrial sizes bilaterally , mild AR, RI, MR, TR RVSP 37 mmHg X-Ray L Femur: suspicious metastatic tumor in femoral head, neck, and distal femur. MRI L Knee: Distal intra-osseus tumor infiltration with possible medial cortical erosion. No pathologic fracture seen. 1. Pre-op CV evaluation prior to ORIF left distal femur and proximal tibial pathologic fracture with metastasis 2. Metastatic breast cancer involving left femur, proximal tibia and spine 3. Hypertension 4. Group B strep bacteremia 5. Anemia post transfusion 6. Hypokalemia PLAN: 1. Dr. Harman input appreciated. No absolute contraindication in view of absence of ischemic symptoms, decompensated congestive heart failure or malignant arrhythmia. 2. Hematology input noted 3. Continue Toprol XL 25 mg QD, d/c HCTZ, replete K and resume prinivil 10 qd 4. Complete IV antibiotic course per ID 5. Analgesia as needed and DVT prophylaxis
--- NOTE | 2018-10-20 10:50 | PN ---
Progress Note (short form) - Note Progress Note: has pain in left knee- left leg is swollen son at bedside Vital Signs - 24 hr 10/19/18 10/20/18 10/20/18 22:00 05:36 09:00 Temperature 98.1 F 98 F Pulse Rate 77 76 Respiratory 20 20 Rate Blood Pressure 124/65 104/58 L O2 Sat by Pulse 99 Oximetry (%) 10/20/18 10/20/18 10/20/18 09:59 13:48 17:15 Temperature 97.9 F 98 F 98.6 F Pulse Rate 89 74 76 Respiratory 20 20 18 Rate Blood Pressure 149/85 109/62 111/63 O2 Sat by Pulse Oximetry (%) Current Medications Generic Name Dose Route Start Last Admin Trade Name Freq PRN Reason Stop Dose Admin Alprazolam 1 mg 10/10/18 01:30 10/19/18 21:07 Xanax - PO 1 mg HS CARTER Administration Amitriptyline HCl 25 mg 10/02/18 22:00 10/19/18 21:07 Elavil - PO 25 mg HS CARTER Administration Dexamethasone 2 mg 10/02/18 14:45 10/20/18 10:03 Decadron - PO 2 mg DAILY [facility] Administration Gabapentin 300 mg 10/02/18 06:00 10/20/18 13:27 Neurontin - PO 300 mg TID [facility]TER Administration IV Flush 10 ml 10/18/18 00:06 10/18/18 11:00 Johann-Cath Flush IVPUSH 10 ml PRN PRN Administration protocol, maintain patency Ceftriaxone Sodium 2 gm/ 100 mls @ 200 mls/hr 10/05/18 10:00 10/20/18 10:02 Dextrose IVPB 200 mls/hr DAILY [facility] Administration Protocol Lidocaine 1 patch 10/06/18 14:00 10/20/18 10:02 Lidoderm Patch - TP 1 patch DAILY [facility] Administration Lidocaine 1 patch 10/16/18 13:00 10/20/18 13:27 Lidoderm Patch - TP 1 patch DAILY@1300 [facility] Administration Lisinopril 10 mg 10/21/18 10:00 Prinivil PO DAILY [facility] Metoprolol Succinate 25 mg 10/02/18 10:00 10/20/18 10:04 Toprol Xl - PO 25 mg DAILY [facility] Administration Miscellaneous 1 each 10/06/18 22:00 10/19/18 21:08 Lidoderm Patch Removal MC Not Given DAILY@2200 [facility] Miscellaneous 1 each 10/16/18 22:00 10/19/18 21:08 Lidoderm Patch Removal MC Not Given DAILY@2200 [facility] Morphine Sulfate 15 mg 10/02/18 10:00 10/20/18 10:03 Ms Contin - PO 15 mg BID [facility]TER Administration Oxycodone HCl 10 mg 10/18/18 12:54 10/20/18 15:24 Roxicodone - PO 10 mg Q4H PRN Administration PAIN LEVEL 6-10 Polyethylene Glycol 17 gm 10/04/18 15:45 10/20/18 10:05 Miralax (For Daily Use) - PO Not Given BID [facility] Ranitidine HCl 150 mg 10/02/18 02:45 10/20/18 10:03 Zantac - PO 150 mg BID [facility]TER Administration Sucralfate 1 gm 10/05/18 18:00 10/20/18 18:05 Carafate Oral Suspension - PO 1 gm QID [facility]TER Administration Laboratory Results - last 24 hr 10/20/18 10/20/18 10/20/18 06:00 06:00 10:54 WBC 4.0 RBC 2.92 L Hgb 8.7 L Hct 26.0 L MCV 89.2 MCH 29.7 MCHC 33.3 RDW 19.1 H Plt Count 205 MPV 6.8 L Absolute Neuts (auto) 2.6 Neutrophils % 65.0 Neutrophils % (Manual) 70.0 Band Neutrophils % 1.0 Lymphocytes % 22.1 Lymphocytes % (Manual) 13.0 D Monocytes % 12.1 H Monocytes % (Manual) 11 H Eosinophils % 0.3 Eosinophils % (Manual) 1.0 Basophils % 0.5 Basophils % (Manual) 2.0 D Myelocytes % (Man) 0 Promyelocytes % (Man) 0 Blast Cells % (Manual) 0 Nucleated RBC % 3 H Metamyelocytes 2 D Hypochromia 0 Platelet Estimate Normal Polychromasia 0 Poikilocytosis 0 Anisocytosis 1+ Microcytosis 1+ Macrocytosis 0 Sodium 147 H 140 Potassium 2.9 L* 3.3 L Chloride 120 H 104 Carbon Dioxide 20 L 28 Anion Gap 7 L 8 BUN 11.4 15.7 Creatinine 0.4 L 0.7 Est GFR (CKD-EPI)AfAm 125.79 104.64 Est GFR (CKD-EPI)NonAf 108.54 90.29 Random Glucose 63 L 158 H Calcium 5.3 L* 7.6 L Total Bilirubin 0.4 AST 20 ALT 60 Alkaline Phosphatase 300 H Total Protein 3.9 L Albumin 1.7 L S1 S2 RRR Lungs clear Abd- soft, NT edema left leg, left knee warm+ PLAN Pt and her family want to pursue going to [facility] for the surgery- they would like an oncologic ortho surgeon . Dr Galvan will be consulting Ortho/ Oncology surgeon at [facility]. Pt does not wish to have DR Ny nor Dr Harman perform surgery here Pain control is important here as well as her ambulatory status All scans /MRI noted and discussed with pt and son she will need to continue with iv antibiotics per ID surgery planned for this Thursday but I will cancel this --pt prefers to do it in [facility] Pulmonary and cardiology has cleared the patient d/w staff Problem List - Problems (1) Fever Code(s): R50.9 - FEVER, UNSPECIFIED Qualifiers: Fever type: unspecified Qualified Code(s): R50.9 - Fever, unspecified (2) Hyperbilirubinemia Code(s): E80.6 - OTHER DISORDERS OF BILIRUBIN METABOLISM (3) Hyponatremia Code(s): E87.1 - HYPO-OSMOLALITY AND HYPONATREMIA (4) Neutropenic fever Code(s): D70.9 - NEUTROPENIA, UNSPECIFIED; R50.81 - FEVER PRESENTING WITH CONDITIONS CLASSIFIED ELSEWHERE (5) Neutropenic sepsis Code(s): A41.9 - SEPSIS, UNSPECIFIED ORGANISM; D70.9 - NEUTROPENIA, UNSPECIFIED (6) Pancytopenia Code(s): D61.818 - OTHER PANCYTOPENIA (7) Rectal bleeding Code(s): K62.5 - HEMORRHAGE OF ANUS AND RECTUM (8) Systemic inflammatory response syndrome (SIRS) Code(s): R65.10 - SIRS OF NON-INFECTIOUS ORIGIN W/O ACUTE ORGAN DYSFUNCTION (9) Metastatic breast cancer Code(s): C50.919 - MALIGNANT NEOPLASM OF UNSP SITE OF UNSPECIFIED FEMALE BREAST (10) Pathologic fracture Code(s): M84.40XA - PATHOLOGICAL FRACTURE, UNSP SITE, INIT ENCNTR FOR FRACTURE Qualifiers: Pathology associated with fracture: neoplastic disease Site of pathological fracture: femur Encounter type: subsequent encounter Laterality : left
--- NOTE | 2018-10-20 11:23 | PN ---
Progress Note (short form) - Note Progress Note: Ortho Note dictated by Dr. Harman a/p knee immobilizer applied TTWB
--- NOTE | 2018-10-20 11:33 | CONS ---
DATE OF CONSULTATION: 10/20/2018 ORTHOPEDIC CONSULTATION/FOLLOWUP [facility] I have reviewed all the films that were performed since last seeing her that revealed that she has extensive disease at the distal femur and proximal tibia. No disease proximally in the femur. The patient would benefit from a distal femoral replacement and proximal tibial replacement. Since last seeing her, I have had a second opinion, Dr. Ny seeing the patient, and Dr. Ny had come to the same conclusion that the patient required this procedure. Currently, the patient at rest is comfortable. She only has pain when she ambulates. We have had a long discussion with the patient, family, and Dr. Galvan. Patient at this time has elected to be treated at [facility]. Dr. Shay Galvan has been in contact with the orthopedic department at [facility]. We are working on logistics of patient needing to be followed at their institution. Currently, the patient is stable and can be stable in a knee immobilizer to prevent any further damage to the distal femur. She can be toe-touch, weightbearing in the knee immobilizer and be discharged from the hospital for followup with Dr. Fu with the orthopedic oncology staff at [facility]. If, however, they want to transfer, that is okay as well. I have had this discussion with the patient as well as with Dr. Galvan, and we look forward to arranging her transfer to [facility] so that she can be taken care of by the team at that institution. CASSIDY PASCUAL M.D. [id number]
[2018-10-20 12:04] LABS: BLOOD UREA NITROGEN 15.7 mg/dL (7-18); CALCIUM 7.6 mg/dL (8.5-10.1); CREATININE 0.7 mg/dL (0.55-1.3); POTASSIUM 3.3 mmol/L (3.5-5.1)
[2018-10-20] MEDS ORDERED: POTASSIUM CHLORIDE ORAL LIQUID 20 MEQ/15 ML PO ONE (12:30)
--- NOTE | 2018-10-20 15:43 | PN ---
Progress Note (short form) - Note Progress Note: continued knee pain patient notes less swelling eating well awaiting transfer to [facility] Vital Signs Period Temp Pulse Resp BP Sys/Nuñez Pulse Ox Last 24 Hr 97.4 F-98.1 F 74-89 20-20 104-149/58-85 99-99 cor-rrr lungs clear abd soft,nt ext immobilizer Left leg CBC, BMP 10/20/18 06:00 10/20/18 10:54 Microbiology 10/16/18 12:30 Blood - Johann Cath Blood Culture - Preliminary NO GROWTH OBTAINED AFTER 96 HOURS, INCUBATION TO CONTINUE FOR 1 DAYS. 10/16/18 13:10 Blood - Peripheral Venous Blood Culture - Preliminary NO GROWTH OBTAINED AFTER 96 HOURS, INCUBATION TO CONTINUE FOR 1 DAYS. 10/16/18 13:00 Blood - Peripheral Venous Blood Culture - Preliminary NO GROWTH OBTAINED AFTER 96 HOURS, INCUBATION TO CONTINUE FOR 1 DAYS. 10/16/18 12:30 Blood - Johann Cath Blood Culture - Preliminary NO GROWTH OBTAINED AFTER 96 HOURS, INCUBATION TO CONTINUE FOR 1 DAYS. 10/16/18 13:10 Urine - Urine Clean Catch Urine Culture - Final 10/06/18 09:20 Blood - Johann Cath Blood Culture - Final NO GROWTH AFTER 5 DAYS INCUBATION 10/06/18 08:45 Blood - Johann Cath Blood Culture - Final NO GROWTH AFTER 5 DAYS INCUBATION 10/03/18 11:45 Blood - Peripheral Venous Blood Culture - Final NO GROWTH AFTER 5 DAYS INCUBATION 10/03/18 11:45 Blood - Peripheral Venous Blood Culture - Final NO GROWTH AFTER 5 DAYS INCUBATION 10/05/18 08:50 Synovial Fluid - Knee Gram Stain - Final 10/05/18 08:50 Synovial Fluid - Knee Body Fluid Culture - Final NO GROWTH OF AEROBIC ORGANISMS AFTER 48 HOURS INCUBATION 10/05/18 08:50 Synovial Fluid - Knee Anaerobic Culture - Final NO ANAEROBES WERE ISOLATED 10/02/18 00:01 Blood - Peripheral Venous Blood Culture - Final Strep Agalactiae Group B 10/02/18 00:01 Blood - Peripheral Venous Blood Culture - Final Strep Agalactiae Group B 10/02/18 02:00 Urine - Urine Clean Catch Urine Culture - Final a/p bacteremia- group b strep plan 4 weeks of ceftriaxone-now day #18 knee pain- left pathologic femur fracture- for transfer to [facility] Ortho s/p neutropenic fever history of metastatic breast cancer d/w patient and son at bedside Problem List - Problems (1) Neutropenic fever Code(s): D70.9 - NEUTROPENIA, UNSPECIFIED; R50.81 - FEVER PRESENTING WITH CONDITIONS CLASSIFIED ELSEWHERE (2) Pancytopenia Code(s): D61.818 - OTHER PANCYTOPENIA (3) Rectal bleeding Code(s): K62.5 - HEMORRHAGE OF ANUS AND RECTUM
--- NOTE | 2018-10-20 16:28 | PN ---
Progress Note (short form) - Note Progress Note: Patient seen Discussed with Ghazal Tesfaye, Family, P.A. Knee brace placed. ID noted To continue with antibiotic therapy Will consider transfer after holiday and continue with antibiotics via peripheral line
[2018-10-20] MEDS: AMITRIPTYLINE HCL 25 MG TABLET (FP) PO SCH (21:25)
[2018-10-20] MEDS: LIDOCAINE PATCH REMOVAL MC SCH ×2 (21:26→21:27)
[2018-10-20] MEDS: ALPRAZolam 2 MG TABLET PO SCH (21:27)
[2018-10-21] MEDS: GABAPENTIN 300 MG CAPSULE (FP) PO SCH ×3 (05:43→21:22)
--- NOTE | 2018-10-21 07:04 | PN ---
Progress Note (short form) - Note Progress Note: Chief Complaint: History of Present Illness: Seen and examined . - Current Medication List Current Medications Alprazolam (Xanax -) 1 mg PO HS [facility] Last Admin: 10/20/18 21:27 Dose: 1 mg Amitriptyline HCl (Elavil -) 25 mg PO HS [facility] Last Admin: 10/20/18 21:25 Dose: 25 mg Dexamethasone (Decadron -) 2 mg PO DAILY [facility] Last Admin: 10/20/18 10:03 Dose: 2 mg Gabapentin (Neurontin -) 300 mg PO TID [facility] Last Admin: 10/21/18 05:43 Dose: 300 mg IV Flush (Johann-Cath Flush) 10 ml IVPUSH PRN PRN PRN Reason: protocol, maintain patency Last Admin: 10/18/18 11:00 Dose: 10 ml Ceftriaxone Sodium 2 gm/ (Dextrose) 100 mls @ 200 mls/hr IVPB DAILY [facility]; Protocol Last Admin: 10/20/18 10:02 Dose: 200 mls/hr Lidocaine (Lidoderm Patch -) 1 patch TP DAILY [facility] Last Admin: 10/20/18 10:02 Dose: 1 patch Lidocaine (Lidoderm Patch -) 1 patch TP DAILY@1300 [facility] Last Admin: 10/20/18 13:27 Dose: 1 patch Lisinopril (Prinivil) 10 mg PO DAILY [facility] Metoprolol Succinate (Toprol Xl -) 25 mg PO DAILY [facility] Last Admin: 10/20/18 10:04 Dose: 25 mg Miscellaneous (Lidoderm Patch Removal) 1 each MC DAILY@2200 [facility] Last Admin: 10/20/18 21:26 Dose: 1 each Miscellaneous (Lidoderm Patch Removal) 1 each MC DAILY@2200 [facility] Last Admin: 10/20/18 21:27 Dose: 1 each Morphine Sulfate (Ms Contin -) 15 mg PO BID [facility] Last Admin: 10/20/18 21:24 Dose: 15 mg Oxycodone HCl (Roxicodone -) 10 mg PO Q4H PRN PRN Reason: PAIN LEVEL 6-10 Last Admin: 10/20/18 15:24 Dose: 10 mg Polyethylene Glycol (Miralax (For Daily Use) -) 17 gm PO BID [facility] Last Admin: 10/20/18 21:25 Dose: Not Given Ranitidine HCl (Zantac -) 150 mg PO BID [facility] Last Admin: 10/20/18 21:24 Dose: 150 mg Sucralfate (Carafate Oral Suspension -) 1 gm PO QID [facility] Last Admin: 10/20/18 21:24 Dose: 1 gm Review of Systems Cardiovascular: As noted above Respiratory: denies Cough or Sputum Production Gastrointestinal: denies: Nausea, Vomiting, Diarrhea, Constipation or Abdominal Discomfort Musculoskeletal: Degenerate Joint Disease - Objective Vital Signs: Last Vital Signs Temp Pulse Resp BP Pulse Ox 97.8 F 74 20 113/56 L 97 10/21/18 05:58 10/21/18 05:58 10/21/18 05:58 10/21/18 05:58 10/20/18 21:00 Intake & Output 10/18/18 10/19/18 10/20/18 10/21/18 23:59 23:59 23:59 23:59 Intake Total 1040 855 500 Balance 1040 855 500 Constitutional: No Distress, Calm Neck: Supple Negative JVD No Bruit Respiratory: Diminished Breath Sounds at the Bases Cardiovascular: S1 S2 Irregularly Irregular Gastrointestinal: Soft Benign Normal Bowel Sounds Ext: Trace Edema Labs: CBC, BMP 10/20/18 06:00 10/20/18 10:54 Hepatic Panel Total Bilirubin 0.4 mg/dL (0.2-1) 10/20/18 06:00 AST 20 U/L (15-37) 10/20/18 06:00 ALT 60 U/L (13-61) 10/20/18 06:00 Alkaline Phosphatase 300 U/L (45-117) H 10/20/18 06:00 Albumin 1.7 g/dl (3.4-5.0) L 10/20/18 06:00 INR, PTT INR 1.01 (0.83-1.09) 10/14/18 06:05 ASSESSMENT: 1. PLAN: 1. Waldemar Guzman M.D.
[2018-10-21] MEDS ORDERED: DEXTROSE 5%-WATER 100 ML IVPB ONE (08:39)
--- NOTE | 2018-10-21 08:46 | PN ---
Progress Note (short form) - Note Progress Note: has pain in left knee- left leg is swollen daughter at bedside she is wearing immobilzer she tried ambulating to bathroom - has less pain When she wipes herself after bm, there is blood stain Vital Signs - 24 hr 10/20/18 10/20/18 10/20/18 09:00 09:59 13:48 Temperature 97.9 F 98 F Pulse Rate 89 74 Respiratory 20 20 Rate Blood Pressure 149/85 109/62 O2 Sat by Pulse 99 Oximetry (%) 10/20/18 10/20/18 10/20/18 17:15 21:00 22:00 Temperature 98.6 F 97.9 F Pulse Rate 76 76 Respiratory 18 20 20 Rate Blood Pressure 111/63 130/72 O2 Sat by Pulse 97 Oximetry (%) 10/21/18 05:58 Temperature 97.8 F Pulse Rate 74 Respiratory 20 Rate Blood Pressure 113/56 L O2 Sat by Pulse Oximetry (%) Current Medications Generic Name Dose Route Start Last Admin Trade Name Freq PRN Reason Stop Dose Admin Alprazolam 1 mg 10/10/18 01:30 10/20/18 21:27 Xanax - PO 1 mg HS CARTER Administration Amitriptyline HCl 25 mg 10/02/18 22:00 10/20/18 21:25 Elavil - PO 25 mg HS CARTER Administration Dexamethasone 2 mg 10/02/18 14:45 10/20/18 10:03 Decadron - PO 2 mg DAILY [facility] Administration Gabapentin 300 mg 10/02/18 06:00 10/21/18 05:43 Neurontin - PO 300 mg TID [facility]TER Administration IV Flush 10 ml 10/18/18 00:06 10/18/18 11:00 Johann-Cath Flush IVPUSH 10 ml PRN PRN Administration protocol, maintain patency Ceftriaxone Sodium 2 gm/ 100 mls @ 200 mls/hr 10/05/18 10:00 10/20/18 10:02 Dextrose IVPB 200 mls/hr DAILY [facility] Administration Protocol Lidocaine 1 patch 10/06/18 14:00 10/20/18 10:02 Lidoderm Patch - TP 1 patch DAILY [facility] Administration Lidocaine 1 patch 10/16/18 13:00 10/20/18 13:27 Lidoderm Patch - TP 1 patch DAILY@1300 [facility] Administration Lisinopril 10 mg 10/21/18 10:00 Prinivil PO DAILY [facility] Metoprolol Succinate 25 mg 10/02/18 10:00 10/20/18 10:04 Toprol Xl - PO 25 mg DAILY [facility] Administration Miscellaneous 1 each 10/06/18 22:00 10/20/18 21:26 Lidoderm Patch Removal MC 1 each DAILY@2200 [facility] Administration Miscellaneous 1 each 10/16/18 22:00 10/20/18 21:27 Lidoderm Patch Removal MC 1 each DAILY@2200 [facility] Administration Morphine Sulfate 15 mg 10/02/18 10:00 10/20/18 21:24 Ms Contin - PO 15 mg BID [facility] Administration Oxycodone HCl 10 mg 10/18/18 12:54 10/20/18 15:24 Roxicodone - PO 10 mg Q4H PRN Administration PAIN LEVEL 6-10 Polyethylene Glycol 17 gm 10/04/18 15:45 10/20/18 21:25 Miralax (For Daily Use) - PO Not Given BID [facility] Ranitidine HCl 150 mg 10/02/18 02:45 10/20/18 21:24 Zantac - PO 150 mg BID [facility] Administration Sucralfate 1 gm 10/05/18 18:00 10/20/18 21:24 Carafate Oral Suspension - PO 1 gm QID [facility] Administration Laboratory Results - last 24 hr 10/20/18 10/20/18 06:00 10:54 Neutrophils % (Manual) 70.0 Band Neutrophils % 1.0 Lymphocytes % (Manual) 13.0 D Monocytes % (Manual) 11 H Eosinophils % (Manual) 1.0 Basophils % (Manual) 2.0 D Myelocytes % (Man) 0 Promyelocytes % (Man) 0 Blast Cells % (Manual) 0 Nucleated RBC % 3 H Metamyelocytes 2 D Hypochromia 0 Platelet Estimate Normal Polychromasia 0 Poikilocytosis 0 Anisocytosis 1+ Microcytosis 1+ Macrocytosis 0 Sodium 140 Potassium 3.3 L Chloride 104 Carbon Dioxide 28 Anion Gap 8 BUN 15.7 Creatinine 0.7 Est GFR (CKD-EPI)AfAm 104.64 Est GFR (CKD-EPI)NonAf 90.29 Random Glucose 158 H Calcium 7.6 L S1 S2 RRR Lungs clear Abd- soft, NT edema left leg, left knee warm+ PLAN Pt and her family want to pursue going to [facility] for the surgery- they would like an oncologic ortho surgeon . Dr Galvan will be consulting Ortho/ Oncology surgeon at [facility]. Pt does not wish to have DR Ny nor Dr Harman perform surgery here Pain control is important here as well as her ambulatory status All scans /MRI noted and discussed with pt and son she will need to continue with iv antibiotics per ID- day Pulmonary and cardiology has cleared the patient preparation H d/w staff Problem List - Problems (1) Fever Code(s): R50.9 - FEVER, UNSPECIFIED Qualifiers: Fever type: unspecified Qualified Code(s): R50.9 - Fever, unspecified (2) Hyperbilirubinemia Code(s): E80.6 - OTHER DISORDERS OF BILIRUBIN METABOLISM (3) Hyponatremia Code(s): E87.1 - HYPO-OSMOLALITY AND HYPONATREMIA (4) Neutropenic fever Code(s): D70.9 - NEUTROPENIA, UNSPECIFIED; R50.81 - FEVER PRESENTING WITH CONDITIONS CLASSIFIED ELSEWHERE (5) Neutropenic sepsis Code(s): A41.9 - SEPSIS, UNSPECIFIED ORGANISM; D70.9 - NEUTROPENIA, UNSPECIFIED (6) Pancytopenia Code(s): D61.818 - OTHER PANCYTOPENIA (7) Rectal bleeding Code(s): K62.5 - HEMORRHAGE OF ANUS AND RECTUM (8) Systemic inflammatory response syndrome (SIRS) Code(s): R65.10 - SIRS OF NON-INFECTIOUS ORIGIN W/O ACUTE ORGAN DYSFUNCTION (9) Metastatic breast cancer Code(s): C50.919 - MALIGNANT NEOPLASM OF UNSP SITE OF UNSPECIFIED FEMALE BREAST (10) Pathologic fracture Code(s): M84.40XA - PATHOLOGICAL FRACTURE, UNSP SITE, INIT ENCNTR FOR FRACTURE Qualifiers: Pathology associated with fracture: neoplastic disease Site of pathological fracture: femur Encounter type: subsequent encounter Laterality : left
[2018-10-21] MEDS: LIDOCAINE 5% TOPICAL PATCH TP SCH ×2 (09:08→14:07)
[2018-10-21] MEDS: CEFTRIAXONE 2 GM in DEXTROSE 5%-WATER 100 ML IVPB SCH (09:08)
[2018-10-21] MEDS: DEXAMETHASONE 4 MG TABLET (FP) PO SCH (09:09)
[2018-10-21] MEDS: LISINOPRIL 10 MG TABLET (FP) PO SCH (09:09)
[2018-10-21] MEDS: RANITIDINE HCL 150 MG TABLET (FP) PO SCH ×2 (09:09→21:22)
[2018-10-21] MEDS: morphine SO4 SUSTAINED ACTING 15 MG TABLET.SA PO SCH ×2 (09:09→21:20)
[2018-10-21] MEDS: POLYETHYLENE GLYCOL 3350 119 GM BTL PO SCH ×2 (09:10→21:24)
[2018-10-21] MEDS: metoPROLOL SUCCINATE 25 MG TAB.SR.24H (FP) PO SCH (09:11)
[2018-10-21] MEDS: SUCRALFATE 1 GM/10 ML UNIT DOSE CUPS PO SCH ×4 (09:11→21:20)
--- NOTE | 2018-10-21 09:23 | PN ---
Progress Note (short form) - Note Progress Note: Patient seen and examined Complains of knee pains Last Vital Signs Temp Pulse Resp BP Pulse Ox 98.4 F 81 20 121/62 97 10/21/18 09:14 10/21/18 09:14 10/21/18 09:14 10/21/18 09:14 10/20/18 21:00 HEENT: GLADYS, EOM Intact Oropharynx: No thrush, No mucositis Neck: Supple Nodes: Without adenopathy Breasts: Without masses Cor: RSR, No murmurs, No gallops Lungs: Clear to P&A Abd: Soft, Normal bowel sounds, No organomegaly Ext:minimal suprapaellar effusion Skin: No rashes, Integument intact CBC, BMP 10/20/18 06:00 10/20/18 10:54 Current Medications Generic Name Dose Route Start Last Admin Trade Name Freq PRN Reason Stop Dose Admin Alprazolam 1 mg 10/10/18 01:30 10/20/18 21:27 Xanax - PO 1 mg HS CARTER Administration Amitriptyline HCl 25 mg 10/02/18 22:00 10/20/18 21:25 Elavil - PO 25 mg HS [facility] Administration Dexamethasone 2 mg 10/02/18 14:45 10/21/18 09:09 Decadron - PO 2 mg DAILY [facility] Administration Gabapentin 300 mg 10/02/18 06:00 10/21/18 05:43 Neurontin - PO 300 mg TID [facility] Administration IV Flush 10 ml 10/18/18 00:06 10/18/18 11:00 Johann-Cath Flush IVPUSH 10 ml PRN PRN Administration protocol, maintain patency Ceftriaxone Sodium 2 gm/ 100 mls @ 200 mls/hr 10/05/18 10:00 10/21/18 09:08 Dextrose IVPB 200 mls/hr DAILY [facility] Administration Protocol Lidocaine 1 patch 10/06/18 14:00 10/21/18 09:08 Lidoderm Patch - TP 1 patch DAILY [facility] Administration Lidocaine 1 patch 10/16/18 13:00 10/20/18 13:27 Lidoderm Patch - TP 1 patch DAILY@1300 [facility] Administration Lisinopril 10 mg 10/21/18 10:00 10/21/18 09:09 Prinivil PO 10 mg DAILY [facility] Administration Metoprolol Succinate 25 mg 10/02/18 10:00 10/21/18 09:11 Toprol Xl - PO 25 mg DAILY [facility] Administration Miscellaneous 1 each 10/06/18 22:00 10/20/18 21:26 Lidoderm Patch Removal MC 1 each DAILY@2200 [facility] Administration Miscellaneous 1 each 10/16/18 22:00 10/20/18 21:27 Lidoderm Patch Removal MC 1 each DAILY@2200 [facility] Administration Morphine Sulfate 15 mg 10/02/18 10:00 10/21/18 09:09 Ms Contin - PO 15 mg BID [facility] Administration Oxycodone HCl 10 mg 10/18/18 12:54 10/20/18 15:24 Roxicodone - PO 10 mg Q4H PRN Administration PAIN LEVEL 6-10 Polyethylene Glycol 17 gm 10/04/18 15:45 10/21/18 09:10 Miralax (For Daily Use) - PO Not Given BID [facility] Ranitidine HCl 150 mg 10/02/18 02:45 10/21/18 09:09 Zantac - PO 150 mg BID [facility] Administration Sucralfate 1 gm 10/05/18 18:00 10/21/18 09:11 Carafate Oral Suspension - PO 1 gm QID [facility] Administration Impression: Metastatic breast cancer Bone mets Anemia Day 19 of ceftriaxone - planned 28days for strep bacteremia Plan: Currently in brace For transfer to [facility] Orthopedic [employer]--Anjali -[phone] person Patient will have antibiotics via peripheral IV at [facility] so discontinue IV prior to transfer.
--- NOTE | 2018-10-21 09:38 | PN ---
Progress Note (short form) - Note Progress Note: Transfer summary dictated
--- NOTE | 2018-10-21 10:18 | TRANS ---
DATE OF ADMISSION: 10/02/2018 DATE OF TRANSFER: 10/21/2018 Transfer to [facility] Orthopedic service. HISTORY OF PRESENT ILLNESS: This is a 68-year-old female with a history of metastatic breast carcinoma. She is ER positive, CT positive, HER-2 negative. She initially presented with stage IV disease with bone involvement. She was initially treated with weekly Taxol therapy and had a significant response. She required radiation therapy to her proximal left femur as well as her lumbar spine. After initial improvement with Taxol, the patient was placed on an aromatase inhibitor, letrozole. She went to [place]. Unfortunately, her disease progressed on the aromatase inhibitor and she represented back to [facility]. She has had numerous problems subsequent. 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 It responded to steroid therapy. She developed multiple progressive bony metastases on hormonal therapy which was changed initially from Arimidex to Faslodex. She required radiation therapy to her distal left femur. She developed numbness of the left side of her face. Spinal tap x2 revealed increased protein. The patient had been transferred to [facility] for the possibility of an Ommaya reservoir and additional CSF fluid analysis since cytology had been negative. Neuro-oncology at [facility] felt that the patient did not have leptomeningeal disease despite the fact that there was some enhancement on MRI. No additional spinal taps were performed. There is no gross metastatic disease in the [employer]. The numbness of the left side of her face has improved. Subsequently, the patient developed once again progressive bony disease with C-spine disease as well as right shoulder disease requiring radiation therapy. She has been treated most recently with weekly Taxol therapy once again since her initial response was with Taxol therapy. HOSPITAL COURSE: On October 01 the patient presented with bloody diarrhea, nausea, vomiting, fever. Initial white count was 1.7 and then 1.0, and after Neupogen was 2.7. Initial hematocrit 22%, initial platelet count 121,000. Blood cultures were positive for Strep agalactiae. The patient was seen by infectious disease. Initial attempts at culturing the Port-A-Cath were unsuccessful as blood could not be drawn. Patient was begun initially on vancomycin and Zosyn and subsequently switched to ceftriaxone. The cultures after 2 days became negative in the blood. Culture of the Port-A-Cath on antibiotics after 3 days was negative. Culture of the knee, which had been aspirated because of suprapatellar effusion, also was negative. The initial suprapatellar left effusion analysis revealed a white count of 15,850, a red count of 4854. Cytology was negative. Patient required blood transfusions. Subsequent stool was negative for occult blood. The patient had assessment with multiple imaging studies, x-rays, CAT scans and MRIs of the left femur. Patient was seen in orthopedic consult and the plan was initially for surgical intervention. The patient has elected to be evaluated by oncologic orthopedics at [facility] rather than have any surgical procedures at [facility]. Today, October 21, is day 19 of planned 28 days of ceftriaxone 2 g daily. This should be maintained at [facility]. CURRENT MEDICATIONS: Include Lidoderm patch; lisinopril 10 mg daily; ceftriaxone 2 g daily; Neurontin 300 t.i.d.; Elavil 20 nightly; Xanax 1 mg nightly; Toprol 25 daily; MiraLAX 17 g b.i.d.; Zantac 150 b.i.d.; MS Contin 15 b.i.d.; oxycodone 10 mg q.4 hours p.r.n.; Carafate 1 g q.i.d. CURRENT PHYSICAL EXAMINATION: VITAL SIGNS: BP 121/62, pulse 81, respiratory rate 20, temperature 98.4 on October 21, 2018. HEENT: PERRLA, EOM intact. Oropharynx unremarkable. NECK: No cervical or supraclavicular nodes. LUNGS: Clear to P and A. CARDIAC: RSR. BREASTS: Left breast inverted nipple, no dominant masses. Right breast no masses. ABDOMEN: Soft. No organomegaly. EXTREMITIES: Left lower extremity suprapatellar effusion. Pain on motion. No significant lower extremity edema, although minimum edema in the lower extremity. LABORATORY THAT IS AVAILABLE ON OCTOBER 21: Includes WBC 4.0, hematocrit 26, platelets of 205,000 with 70 polys, 22 lymphs, 12 monos. Chemistries on October 20: Sodium 140, potassium 3.3 which was repleted, 104 CO2, creatinine 0.7, GFR normal at 90, glucose random 158, but Decadron has been discontinued; calcium 7.6, bilirubin 0.4, AST 20, ALT 60, alkaline phosphatase 300, protein 3.9, albumin 1.7. All cultures, blood and urine, have been negative since 3 days postprocedure aspiration of knee and since antibiotics have been instituted. PLAN AND IMPRESSION: Metastatic breast carcinoma, extensive bony metastases, no visceral metastases. Transferring to [facility] for orthopedic consultation, assessment and possible surgical intervention. Need to continue ceftriaxone 2 g daily; October 21 is day 19 of planned 28 as aforementioned. I can be reached via my office, , or via my cell, . MAITE PERSON M.D. [id number]
[2018-10-21] MEDS ORDERED: oxyCODONE HCL 5 MG TABLET PO PRN (13:35)
[2018-10-21] MEDS: AMITRIPTYLINE HCL 25 MG TABLET (FP) PO SCH (21:20)
[2018-10-21] MEDS: ALPRAZolam 2 MG TABLET PO SCH (21:21)
[2018-10-21] MEDS: LIDOCAINE PATCH REMOVAL MC SCH ×2 (21:22→21:24)
[2018-10-22] MEDS: GABAPENTIN 300 MG CAPSULE (FP) PO SCH ×2 (06:30→14:20)
[2018-10-22 07:28] LABS: MCH 29.9 pg (25.7-33.7); MCHC 33.3 g/dl (32.0-36.0); MEAN CELL VOLUME 89.6 fl (80-96); MEAN PLT VOLUME 6.7 fl (7.5-11.1); PLATELET COUNT 208 K/MM3 (134-434); RBC 3.01 M/mm3 (3.60-5.2); RDW 19.4 % (11.6-15.6)
[2018-10-22 08:21] LABS: BLOOD UREA NITROGEN 15.9 mg/dL (7-18); CALCIUM 8.1 mg/dL (8.5-10.1); CREATININE 0.7 mg/dL (0.55-1.3); POTASSIUM 4.4 mmol/L (3.5-5.1)
--- NOTE | 2018-10-22 09:54 | PN ---
Progress Note, Physician History of Present Illness: Left knee pain referable to left distal femur left knee pathologic fracture due to mets now in knee immobilizer. Had prior RT. Considering transfer to [facility] oncology service. Regarding cardiovascular symptoms, denies chest pain, dyspnea, near or true syncope, palpitations, orthopnea, PND, or LE edema. - Current Medication List Current Medications: Active Medications Alprazolam (Xanax -) 1 mg PO HS [facility] Last Admin: 10/21/18 21:21 Dose: 1 mg Amitriptyline HCl (Elavil -) 25 mg PO HS [facility] Last Admin: 10/21/18 21:20 Dose: 25 mg Gabapentin (Neurontin -) 300 mg PO TID [facility] Last Admin: 10/22/18 06:30 Dose: 300 mg IV Flush (Johann-Cath Flush) 10 ml IVPUSH PRN PRN PRN Reason: protocol, maintain patency Last Admin: 10/18/18 11:00 Dose: 10 ml Ceftriaxone Sodium 2 gm/ (Dextrose) 100 mls @ 200 mls/hr IVPB DAILY [facility]; Protocol Last Admin: 10/21/18 09:08 Dose: 200 mls/hr Lidocaine (Lidoderm Patch -) 1 patch TP DAILY [facility] Last Admin: 10/21/18 09:08 Dose: 1 patch Lidocaine (Lidoderm Patch -) 1 patch TP DAILY@1300 [facility] Last Admin: 10/21/18 14:07 Dose: 1 patch Lisinopril (Prinivil) 10 mg PO DAILY [facility] Last Admin: 10/21/18 09:09 Dose: 10 mg Metoprolol Succinate (Toprol Xl -) 25 mg PO DAILY [facility] Last Admin: 10/21/18 09:11 Dose: 25 mg Miscellaneous (Lidoderm Patch Removal) 1 each MC DAILY@2200 [facility] Last Admin: 10/21/18 21:22 Dose: 1 each Miscellaneous (Lidoderm Patch Removal) 1 each MC DAILY@2200 [facility] Last Admin: 10/21/18 21:24 Dose: Not Given Morphine Sulfate (Ms Contin -) 15 mg PO BID [facility] Last Admin: 10/21/18 21:20 Dose: 15 mg Oxycodone HCl (Roxicodone -) 10 mg PO Q4H PRN PRN Reason: PAIN 6-10 Last Admin: 10/21/18 14:08 Dose: 10 mg Polyethylene Glycol (Miralax (For Daily Use) -) 17 gm PO BID [facility] Last Admin: 10/21/18 21:24 Dose: Not Given Ranitidine HCl (Zantac -) 150 mg PO BID [facility] Last Admin: 10/21/18 21:22 Dose: 150 mg Sucralfate (Carafate Oral Suspension -) 1 gm PO QID [facility] Last Admin: 10/21/18 21:20 Dose: 1 gm - Objective Vital Signs: Vital Signs Temperature 98.1 F 10/22/18 06:38 Pulse Rate 80 10/22/18 06:38 Respiratory Rate 20 10/22/18 06:38 Blood Pressure 126/72 10/22/18 06:38 O2 Sat by Pulse Oximetry (%) 96 10/21/18 21:00 Constitutional: Yes: No Distress, Calm Neck: Yes: Supple Cardiovascular: Yes: Regular Rate and Rhythm Respiratory: Yes: Regular, CTA Bilaterally Gastrointestinal: Yes: Normal Bowel Sounds, Soft Edema: No Labs: CBC, BMP 10/22/18 06:08 10/22/18 06:08 INR, PTT INR 1.01 (0.83-1.09) 10/14/18 06:05 Problem List - Problems (1) Pathologic fracture Code(s): M84.40XA - PATHOLOGICAL FRACTURE, UNSP SITE, INIT ENCNTR FOR FRACTURE Qualifiers: Pathology associated with fracture: neoplastic disease Site of pathological fracture: femur Encounter type: subsequent encounter Laterality : left (2) Preoperative cardiovascular examination Code(s): Z01.810 - ENCOUNTER FOR PREPROCEDURAL CARDIOVASCULAR EXAMINATION (3) Rectal bleeding Code(s): K62.5 - HEMORRHAGE OF ANUS AND RECTUM (4) Metastatic breast cancer Code(s): C50.919 - MALIGNANT NEOPLASM OF UNSP SITE OF UNSPECIFIED FEMALE BREAST (5) Cancer, metastatic to bone Code(s): C79.51 - SECONDARY MALIGNANT NEOPLASM OF BONE (6) HTN (hypertension) Code(s): I10 - ESSENTIAL (PRIMARY) HYPERTENSION Qualifiers: Hypertension type: essential hypertension Qualified Code(s): I10 - Essential (primary) hypertension (7) Pain from bone metastases Code(s): G89.3 - NEOPLASM RELATED PAIN (ACUTE) (CHRONIC); C79.51 - SECONDARY MALIGNANT NEOPLASM OF BONE Assessment/Plan 10/04/2018 Normal LV size and fxn, LVEF 65-70%, normal atrial sizes bilaterally , mild AR, HI, MR, TR RVSP 37 mmHg X-Ray L Femur: suspicious metastatic tumor in femoral head, neck, and distal femur. MRI L Knee: Distal intra-osseus tumor infiltration with possible medial cortical erosion. No pathologic fracture seen. 1. Pre-op CV evaluation prior to ORIF left distal femur and proximal tibial pathologic fracture with metastasis 2. Metastatic breast cancer involving left femur, proximal tibia and spine 3. Hypertension 4. Group B strep bacteremia 5. Anemia post transfusion 6. Hypokalemia resolved PLAN: 1. No absolute contraindication in view of absence of ischemic symptoms, decompensated congestive heart failure or malignant arrhythmia. 2. Plan for transfer to orthopeedic oncology service at tertiary center 3. Continue Toprol XL 25 mg QD, d/c HCTZ, replete K and resumed prinivil 10 qd 4. Complete IV antibiotic course per ID 5. Analgesia as needed and DVT prophylaxis
[2018-10-22] MEDS ORDERED: DEXTROSE 5%-WATER 100 ML IVPB ONE ×2 (11:24→11:25)
--- NOTE | 2018-10-22 11:26 | PN ---
Progress Note (short form) - Note Progress Note: has pain in left knee- left leg is swollen Vital Signs - 24 hr 10/21/18 10/21/18 10/21/18 13:55 17:34 21:00 Temperature 98.1 F 98.5 F Pulse Rate 80 81 Respiratory 20 18 20 Rate Blood Pressure 120/62 120/55 L O2 Sat by Pulse 96 Oximetry (%) 10/21/18 10/22/18 22:00 06:38 Temperature 97.8 F 98.1 F Pulse Rate 89 80 Respiratory 20 20 Rate Blood Pressure 122/68 126/72 O2 Sat by Pulse Oximetry (%) Current Medications Generic Name Dose Route Start Last Admin Trade Name Freq PRN Reason Stop Dose Admin Amitriptyline HCl 25 mg 10/02/18 22:00 10/21/18 21:20 Elavil - PO 25 mg HS CARTER Administration Gabapentin 300 mg 10/02/18 06:00 10/22/18 06:30 Neurontin - PO 300 mg TID CARTER Administration IV Flush 10 ml 10/18/18 00:06 10/18/18 11:00 Johann-Cath Flush IVPUSH 10 ml PRN PRN Administration protocol, maintain patency Ceftriaxone Sodium 2 gm/ 100 mls @ 200 mls/hr 10/05/18 10:00 10/22/18 12:22 Dextrose IVPB 200 mls/hr DAILY CARTER Administration Protocol Lidocaine 1 patch 10/06/18 14:00 10/22/18 12:22 Lidoderm Patch - TP 1 patch DAILY CARTER Administration Lidocaine 1 patch 10/16/18 13:00 10/22/18 12:30 Lidoderm Patch - TP 1 patch DAILY@1300 CARTER Administration Lisinopril 10 mg 10/21/18 10:00 10/22/18 12:24 Prinivil PO 10 mg DAILY CARTER Administration Metoprolol Succinate 25 mg 10/02/18 10:00 10/22/18 12:24 Toprol Xl - PO 25 mg DAILY CARTER Administration Miscellaneous 1 each 10/06/18 22:00 10/21/18 21:22 Lidoderm Patch Removal MC 1 each DAILY@2200 CARTER Administration Miscellaneous 1 each 10/16/18 22:00 10/21/18 21:24 Lidoderm Patch Removal MC Not Given DAILY@2200 CATRER Oxycodone HCl 10 mg 10/21/18 13:35 10/21/18 14:08 Roxicodone - PO 10 mg Q4H PRN Administration PAIN 6-10 Polyethylene Glycol 17 gm 10/04/18 15:45 10/22/18 12:25 Miralax (For Daily Use) - PO 17 gm BID CARTER Administration Ranitidine HCl 150 mg 10/02/18 02:45 10/22/18 12:23 Zantac - PO 150 mg BID CARTER Administration Sucralfate 1 gm 10/05/18 18:00 10/22/18 12:22 Carafate Oral Suspension - PO 1 gm QID CARTER Administration Laboratory Results - last 24 hr 10/22/18 10/22/18 06:08 06:08 WBC 5.0 RBC 3.01 L Hgb 9.0 L Hct 27.0 L MCV 89.6 MCH 29.9 MCHC 33.3 RDW 19.4 H Plt Count 208 MPV 6.7 L Sodium 140 Potassium 4.4 Chloride 106 Carbon Dioxide 29 Anion Gap 5 L BUN 15.9 Creatinine 0.7 Est GFR (CKD-EPI)AfAm 104.64 Est GFR (CKD-EPI)NonAf 90.29 Random Glucose 70 L Calcium 8.1 L S1 S2 RRR Lungs clear Abd- soft, NT edema left leg, left knee warm+ PLAN plan for transfer to [facility] for surgery Pain control is important here as well as her ambulatory status she will need to continue with iv antibiotics per ID- day Pulmonary and cardiology has cleared the patient preparation H d/w staff Problem List - Problems (1) Fever Code(s): R50.9 - FEVER, UNSPECIFIED Qualifiers: Fever type: unspecified Qualified Code(s): R50.9 - Fever, unspecified (2) Hyperbilirubinemia Code(s): E80.6 - OTHER DISORDERS OF BILIRUBIN METABOLISM (3) Hyponatremia Code(s): E87.1 - HYPO-OSMOLALITY AND HYPONATREMIA (4) Neutropenic fever Code(s): D70.9 - NEUTROPENIA, UNSPECIFIED; R50.81 - FEVER PRESENTING WITH CONDITIONS CLASSIFIED ELSEWHERE (5) Neutropenic sepsis Code(s): A41.9 - SEPSIS, UNSPECIFIED ORGANISM; D70.9 - NEUTROPENIA, UNSPECIFIED (6) Pancytopenia Code(s): D61.818 - OTHER PANCYTOPENIA (7) Rectal bleeding Code(s): K62.5 - HEMORRHAGE OF ANUS AND RECTUM (8) Systemic inflammatory response syndrome (SIRS) Code(s): R65.10 - SIRS OF NON-INFECTIOUS ORIGIN W/O ACUTE ORGAN DYSFUNCTION (9) Metastatic breast cancer Code(s): C50.919 - MALIGNANT NEOPLASM OF UNSP SITE OF UNSPECIFIED FEMALE BREAST (10) Pathologic fracture Code(s): M84.40XA - PATHOLOGICAL FRACTURE, UNSP SITE, INIT ENCNTR FOR FRACTURE Qualifiers: Pathology associated with fracture: neoplastic disease Site of pathological fracture: femur Encounter type: subsequent encounter Laterality : left
[2018-10-22] MEDS: CEFTRIAXONE 2 GM in DEXTROSE 5%-WATER 100 ML IVPB SCH (12:22)
[2018-10-22] MEDS: SUCRALFATE 1 GM/10 ML UNIT DOSE CUPS PO SCH ×2 (12:22→14:48)
[2018-10-22] MEDS: LIDOCAINE 5% TOPICAL PATCH TP SCH ×2 (12:22→12:30)
[2018-10-22] MEDS: morphine SO4 SUSTAINED ACTING 15 MG TABLET.SA PO SCH (12:23)
[2018-10-22] MEDS: RANITIDINE HCL 150 MG TABLET (FP) PO SCH (12:23)
[2018-10-22] MEDS: metoPROLOL SUCCINATE 25 MG TAB.SR.24H (FP) PO SCH (12:24)
[2018-10-22] MEDS: LISINOPRIL 10 MG TABLET (FP) PO SCH (12:24)
[2018-10-22] MEDS: POLYETHYLENE GLYCOL 3350 119 GM BTL PO SCH (12:25)
[2018-10-22 13:28] VITALS: BP 117/58; PULSE 84; TEMP 98.6
[2018-10-22] MEDS ORDERED: oxyCODONE HCL 5 MG TABLET PO ONE (15:55)
[2018-10-23] MEDS ORDERED: PHENYLEPHRINE HCL/COCOA BUTTER SUPPOSITORY RC SCH (10:00)
== END 2018-10-22 16:30 | disposition short-term general hospital (02) | DRG 872 ==
LOC: JER 23:12 → JERBED 10-02 00:59 → J7W 10-02 13:20
PROVIDERS: ADMIT Internal Medicine; ATTEND Internal Medicine
PROC: 30233N1 Transfusion of Nonautologous Red Blood Cells into Peripheral Vein, Percutaneous Approach (ICD-10-PCS; 2018-10-02)
PROC: 0S9D3ZX Drainage of Left Knee Joint, Percutaneous Approach, Diagnostic (ICD-10-PCS; principal; 2018-10-05)
DX: A40.9 Streptococcal sepsis, unspecified (principal); C79.51 Secondary malignant neoplasm of bone; E87.1 Hypo-osmolality and hyponatremia; D61.818 Other pancytopenia; K62.5 Hemorrhage of anus and rectum; M84.552A Pathological fracture in neoplastic disease, left femur, initial encounter for fracture; M84.562A Pathological fracture in neoplastic disease, left tibia, initial encounter for fracture; C50.919 Malignant neoplasm of unspecified site of unspecified female breast; D70.8 Other neutropenia; R50.81 Fever presenting with conditions classified elsewhere; E83.51 Hypocalcemia; D64.9 Anemia, unspecified; K64.8 Other hemorrhoids; I10 Essential (primary) hypertension; K21.9 Gastro-esophageal reflux disease without esophagitis; F41.9 Anxiety disorder, unspecified; M25.462 Effusion, left knee; E80.6 Other disorders of bilirubin metabolism; E87.5 Hyperkalemia; E87.6 Hypokalemia; Z74.01 Bed confinement status
CPT/HCPCS: 36415; 36430; 36511; 71045-TC-FY; 72195-TC; 73552-TC-LT-FY; 73560-TC-LT-FY; 73560-TC-RT-FY; 73562-TC-LT-FY; 73590-TC-LT-FY; 73700-TC-RT; 73718-TC-LT; 73721-LT-TC; 80048; 80053; 81003; 82272; 82550; 82803; 82962; 83605; 83690; 83735; 83930; 83935; 84300; 84443; 84484; 84550; 85025; 85027; 85610; 85730; 86850; 86900; 86901; 86922; 87040; 87070; 87075; 87086; 87186; 87205; 89051; 89060; 93005; 93010; 93306-TC; 93970-TC; 99284-25; G0480; J0131; J1644; J2997; J7030; P9038; P9058

== ENCOUNTER 2018-12-06 07:28 | Day surgery (SDC) | payer OTHER ==
[2018-12-06] MEDS ORDERED: SODIUM CHLORIDE 250 ML IV ONE ×2 (09:00→11:45)
[2018-12-06 09:42] LABS: BASO % 0.9 % (0-2.0); EOS % 1.7 % (0-4.5); HEMOGLOBIN 10.7 GM/dL (10.7-15.3); LYMPH % 21.8 % (8-40); MCH 30.6 pg (25.7-33.7); MCHC 33.4 g/dl (32.0-36.0); MEAN CELL VOLUME 91.5 fl (80-96); MEAN PLT VOLUME 6.6 fl (7.5-11.1); MONO % 10.2 % (3.8-10.2); NEUT % 65.4 % (42.8-82.8); PLATELET COUNT 276 K/MM3 (134-434); RBC 3.49 M/mm3 (3.60-5.2); RDW 17.6 % (11.6-15.6); WHITE BLOOD COUNT 3.2 K/mm3 (4.0-10.0)
[2018-12-06] MEDS ORDERED: PACLITAXEL 138 MG in SODIUM CHLORIDE 250 ML IVPB ONE (10:00)
[2018-12-06 10:15] LABS: BLOOD UREA NITROGEN 7.2 mg/dL (7-18); CALCIUM 9.3 mg/dL (8.5-10.1); CREATININE 0.9 mg/dL (0.55-1.3); POTASSIUM 3.8 mmol/L (3.5-5.1)
[2018-12-06] MEDS ORDERED: DEXAMETHASONE 4 MG TABLET (FP) PO ONE (10:30)
[2018-12-06] MEDS ORDERED: DEXTROSE 5%-0.45% SALINE 1,000 ML IV SCH (10:30)
[2018-12-06] MEDS ORDERED: ZOLEDRONIC ACID 4 MG in SODIUM CHLORIDE 100 ML IVPB ONE (11:00)
[2018-12-06 12:22] LABS: ALBUMIN 3.8 g/dl (3.4-5.0); BILIRUBIN,DIRECT 0.3 mg/dL (0.0-0.2); BILIRUBIN,TOTAL 1.1 mg/dL (0.2-1); MAGNESIUM 2.3 mg/dL (1.8-2.4)
[2018-12-06 17:06] VITALS: BP 138/79; PULSE 101; TEMP 98
[2018-12-06] MEDS ORDERED: PORTA CATH FLUSH 10 ML IVPUSH ONE ×2 (17:06→17:20)
[2018-12-27] MEDS ORDERED: DEXAMETHASONE SODIUM PHOSPHATE IVPB ONE (09:30)
[2018-12-27] MEDS ORDERED: [UNRECOGNIZED DRUG - OTHER] IVPB ONE (09:30)
[2018-12-27] MEDS ORDERED: ONDANSETRON IVPB ONE (09:30)
== END 2018-12-06 15:30 | disposition home or self-care (01) ==
LOC: JONCCHEMO 07:28 → J7W 09:31 → JONCCHEMO 15:30
PROVIDERS: ATTEND Internal Medicine Hematology & Oncology
DX: Z51.11 Encounter for antineoplastic chemotherapy (principal); C50.919 Malignant neoplasm of unspecified site of unspecified female breast; C79.51 Secondary malignant neoplasm of bone
CPT/HCPCS: 36415; 80048; 80076; 83735; 85025; 96361; 96367; 96375; 96413; 96417; J2405; J3489

== ENCOUNTER 2018-12-13 07:11 | Day surgery (SDC) | payer OTHER ==
[2018-12-13 08:19] LABS: BASO % 1.2 % (0-2.0); EOS % 0.9 % (0-4.5); HEMATOCRIT 28.7 % (32.4-45.2); HEMOGLOBIN 9.9 GM/dL (10.7-15.3); LYMPH % 24.5 % (8-40); MCH 31.3 pg (25.7-33.7); MCHC 34.6 g/dl (32.0-36.0); MEAN CELL VOLUME 90.3 fl (80-96); MEAN PLT VOLUME 6.5 fl (7.5-11.1); MONO % 6.1 % (3.8-10.2); NEUT % 67.3 % (42.8-82.8); PLATELET COUNT 263 K/MM3 (134-434); RBC 3.18 M/mm3 (3.60-5.2); RDW 17.4 % (11.6-15.6); WHITE BLOOD COUNT 3.8 K/mm3 (4.0-10.0)
[2018-12-13 08:50] LABS: ALBUMIN 3.8 g/dl (3.4-5.0); BILIRUBIN,DIRECT 0.2 mg/dL (0.0-0.2); BILIRUBIN,TOTAL 0.9 mg/dL (0.2-1); BLOOD UREA NITROGEN 14.4 mg/dL (7-18); CALCIUM 8.6 mg/dL (8.5-10.1); CREATININE 0.8 mg/dL (0.55-1.3); MAGNESIUM 2.1 mg/dL (1.8-2.4); POTASSIUM 3.8 mmol/L (3.5-5.1)
[2018-12-13] MEDS ORDERED: SODIUM CHLORIDE 250 ML IV ONE ×2 (09:00→11:00)
[2018-12-13] MEDS ORDERED: [UNRECOGNIZED DRUG - OTHER] IVPB ONE (09:30)
[2018-12-13] MEDS ORDERED: DIPHENHYDRAMINE IVPB ONE (09:30)
[2018-12-13] MEDS ORDERED: DEXAMETHASONE SODIUM PHOSPHATE IVPB ONE (09:30)
[2018-12-13] MEDS ORDERED: PACLITAXEL 138 MG in SODIUM CHLORIDE 250 ML IVPB ONE (10:00)
[2018-12-13 10:03] LABS: ANISOCYTOSIS 0; MACROCYTOSIS 0; PLATELET ESTIMATE NORMAL
[2018-12-13 16:03] VITALS: PULSE 86; TEMP 97.9
[2018-12-13 16:04] VITALS: BP 138/78
== END 2018-12-13 12:50 | disposition home or self-care (01) ==
LOC: JONCCHEMO 07:11 → JERBED 09:26 → J7W 09:34 → JONCCHEMO 12:50
PROVIDERS: ATTEND Internal Medicine Hematology & Oncology
DX: Z51.11 Encounter for antineoplastic chemotherapy (principal); C50.919 Malignant neoplasm of unspecified site of unspecified female breast; C79.51 Secondary malignant neoplasm of bone
CPT/HCPCS: 36415; 80048; 80076; 83735; 85025; 96367; 96375; 96413; J2405

== ENCOUNTER 2018-12-27 05:48 | Day surgery (SDC) | payer OTHER ==
[2018-12-27 08:46] LABS: BASO % 1.2 % (0-2.0); EOS % 1.1 % (0-4.5); HEMATOCRIT 27.9 % (32.4-45.2); HEMOGLOBIN 9.4 GM/dL (10.7-15.3); LYMPH % 27.6 % (8-40); MCH 30.7 pg (25.7-33.7); MCHC 33.6 g/dl (32.0-36.0); MEAN CELL VOLUME 91.4 fl (80-96); MEAN PLT VOLUME 7.2 fl (7.5-11.1); MONO % 13.6 % (3.8-10.2); NEUT % 56.5 % (42.8-82.8); PLATELET COUNT 267 K/MM3 (134-434); RBC 3.05 M/mm3 (3.60-5.2); RDW 17.8 % (11.6-15.6); WHITE BLOOD COUNT 2.6 K/mm3 (4.0-10.0)
[2018-12-27 09:15] LABS: ALBUMIN 3.7 g/dl (3.4-5.0); BILIRUBIN,TOTAL 0.9 mg/dL (0.2-1); BLOOD UREA NITROGEN 10.2 mg/dL (7-18); CALCIUM 8.8 mg/dL (8.5-10.1); CREATININE 0.9 mg/dL (0.55-1.3); MAGNESIUM 2.2 mg/dL (1.8-2.4); POTASSIUM 4.1 mmol/L (3.5-5.1); TOT PROT 6.5 g/dl (6.4-8.2)
[2018-12-27] MEDS ORDERED: SODIUM CHLORIDE 250 ML IV ONE ×2 (09:30→11:30)
[2018-12-27] MEDS ORDERED: DEXAMETHASONE SODIUM PHOSPHATE 10 MG, ONDANSETRON INJECTION 8 MG, DIPHENHYDRAMINE 50 MG... IVPB ONE (10:00)
[2018-12-27] MEDS ORDERED: PACLITAXEL 138 MG in SODIUM CHLORIDE 250 ML IVPB ONE (10:30)
[2018-12-27 16:19] VITALS: TEMP 98.3
[2018-12-27 17:03] VITALS: BP 138/74; PULSE 99
[2018-12-27] MEDS ORDERED: PORTA CATH FLUSH 10 ML IVPUSH ONE (17:03)
== END 2018-12-27 14:30 | disposition home or self-care (01) ==
LOC: JONCCHEMO 05:48 → J7W 09:50 → JONCCHEMO 14:30
PROVIDERS: ATTEND Internal Medicine Hematology & Oncology
DX: Z51.11 Encounter for antineoplastic chemotherapy (principal); C50.919 Malignant neoplasm of unspecified site of unspecified female breast; C79.51 Secondary malignant neoplasm of bone
CPT/HCPCS: 36415; 80053; 83735; 85025; 96361; 96367; 96375; 96413; J2405

== ENCOUNTER 2018-12-28 06:26 | Day surgery (SDC) | payer OTHER ==
[2018-12-28] MEDS ORDERED: TBO-FILGRASTIM 480 MCG/0.8 ML DISP.SYRIN SQ ONE (11:15)
[2018-12-28 15:31] VITALS: BP 129/67; PULSE 83; TEMP 98.1
== END 2018-12-28 12:15 | disposition home or self-care (01) ==
LOC: JONCCHEMO 06:26 → J7W 11:07 → JONCCHEMO 12:15
PROVIDERS: ATTEND Internal Medicine Hematology & Oncology
PROC: 3E013GC Introduction of Other Therapeutic Substance into Subcutaneous Tissue, Percutaneous Approach (ICD-10-PCS; principal; 2018-12-28)
DX: C50.919 Malignant neoplasm of unspecified site of unspecified female breast (principal); C79.51 Secondary malignant neoplasm of bone; Z76.89 Persons encountering health services in other specified circumstances
CPT/HCPCS: 96372; J1447

== ENCOUNTER 2019-01-03 06:14 | Day surgery (SDC) | payer OTHER ==
[2019-01-03 09:01] LABS: BASO % 0.8 % (0-2.0); EOS % 1.4 % (0-4.5); HEMATOCRIT 27.7 % (32.4-45.2); HEMOGLOBIN 9.3 GM/dL (10.7-15.3); LYMPH % 19.6 % (8-40); MCH 30.4 pg (25.7-33.7); MCHC 33.5 g/dl (32.0-36.0); MEAN CELL VOLUME 90.6 fl (80-96); MEAN PLT VOLUME 7.6 fl (7.5-11.1); MONO % 7.9 % (3.8-10.2); NEUT % 70.3 % (42.8-82.8); PLATELET COUNT 280 K/MM3 (134-434); RBC 3.05 M/mm3 (3.60-5.2); RDW 17.5 % (11.6-15.6); WHITE BLOOD COUNT 4.6 K/mm3 (4.0-10.0)
[2019-01-03] MEDS ORDERED: SODIUM CHLORIDE 250 ML IV ONE ×2 (09:30→11:30)
[2019-01-03 09:31] LABS: ALBUMIN 3.9 g/dl (3.4-5.0); BILIRUBIN,TOTAL 0.8 mg/dL (0.2-1); BLOOD UREA NITROGEN 14.7 mg/dL (7-18); CREATININE 0.8 mg/dL (0.55-1.3); MAGNESIUM 2.3 mg/dL (1.8-2.4); POTASSIUM 4.6 mmol/L (3.5-5.1); TOT PROT 6.6 g/dl (6.4-8.2)
[2019-01-03 09:56] LABS: ANISOCYTOSIS 1+; MACROCYTOSIS 0; PLATELET ESTIMATE NORMAL; TEAR DROP CELLS 1+
[2019-01-03] MEDS ORDERED: DEXAMETHASONE SODIUM PHOSPHATE 10 MG, ONDANSETRON INJECTION 8 MG, DIPHENHYDRAMINE 50 MG... IVPB ONE (10:00)
[2019-01-03] MEDS ORDERED: ZOLEDRONIC ACID 4 MG in SODIUM CHLORIDE 100 ML IVPB ONE (10:00)
[2019-01-03] MEDS ORDERED: PACLITAXEL 138 MG in SODIUM CHLORIDE 250 ML IVPB ONE (10:30)
[2019-01-03 17:14] VITALS: BP 123/69; PULSE 92; TEMP 98.9
[2019-01-03] MEDS ORDERED: PORTA CATH FLUSH 10 ML IVPUSH ONE (17:14)
== END 2019-01-03 14:20 | disposition home or self-care (01) ==
LOC: JONCCHEMO 06:14 → J7W 09:19 → JONCCHEMO 14:20
PROVIDERS: ATTEND Internal Medicine Hematology & Oncology
DX: Z51.11 Encounter for antineoplastic chemotherapy (principal); C50.919 Malignant neoplasm of unspecified site of unspecified female breast; C79.51 Secondary malignant neoplasm of bone
CPT/HCPCS: 36415; 74018-TC-FY; 80053; 83735; 85025; 96366; 96367; 96375; 96413; 96417; J3489

== ENCOUNTER 2019-01-10 05:55 | Day surgery (SDC) | payer OTHER ==
[2019-01-10] MEDS ORDERED: TBO-FILGRASTIM 480 MCG/0.8 ML DISP.SYRIN SQ ONE (08:00)
[2019-01-10] MEDS ORDERED: SODIUM CHLORIDE 250 ML IV ONE ×2 (09:30→11:30)
[2019-01-10 09:31] LABS: BASO % 1.5 % (0-2.0); EOS % 1.5 % (0-4.5); HEMOGLOBIN 8.3 GM/dL (10.7-15.3); LYMPH % 29.6 % (8-40); MCH 30.7 pg (25.7-33.7); MCHC 33.4 g/dl (32.0-36.0); MEAN CELL VOLUME 91.9 fl (80-96); MEAN PLT VOLUME 7.2 fl (7.5-11.1); MONO % 6.6 % (3.8-10.2); NEUT % 60.8 % (42.8-82.8); PLATELET COUNT 255 K/MM3 (134-434); RBC 2.72 M/mm3 (3.60-5.2); RDW 17.7 % (11.6-15.6); WHITE BLOOD COUNT 2.2 K/mm3 (4.0-10.0)
[2019-01-10] MEDS ORDERED: [UNRECOGNIZED DRUG - OTHER] IVPB ONE (10:00)
[2019-01-10] MEDS ORDERED: ONDANSETRON IVPB ONE (10:00)
[2019-01-10] MEDS ORDERED: DEXAMETHASONE SODIUM PHOSPHATE IVPB ONE (10:00)
[2019-01-10 10:11] LABS: ALBUMIN 3.6 g/dl (3.4-5.0); BILIRUBIN,DIRECT 0.2 mg/dL (0.0-0.2); BILIRUBIN,TOTAL 0.6 mg/dL (0.2-1); CALCIUM 8.8 mg/dL (8.5-10.1); CREATININE 0.8 mg/dL (0.55-1.3); MAGNESIUM 2.1 mg/dL (1.8-2.4); POTASSIUM 4.5 mmol/L (3.5-5.1); TOT PROT 6.2 g/dl (6.4-8.2)
[2019-01-10] MEDS ORDERED: oxyCODONE HCL 5 MG TABLET PO PRN (10:25)
[2019-01-10] MEDS ORDERED: PACLITAXEL 138 MG in SODIUM CHLORIDE 250 ML IVPB ONE (10:30)
[2019-01-10 14:59] VITALS: BP 125/67; PULSE 82; TEMP 98
[2019-01-10] MEDS ORDERED: PORTA CATH FLUSH 10 ML IVPUSH ONE (14:59)
[2019-01-11 05:07] LABS: CARCINOEMBRYONIC ANTIGEN 2.1 ng/mL (0.0-4.7)
[2019-01-11] MEDS ORDERED: TBO-FILGRASTIM 480 MCG/0.8 ML DISP.SYRIN SQ ONE (08:00)
== END 2019-01-10 13:50 | disposition home or self-care (01) ==
LOC: JONCCHEMO 05:55 → J7W 10:02 → JONCCHEMO 13:50
PROVIDERS: ATTEND Internal Medicine Hematology & Oncology
DX: Z51.11 Encounter for antineoplastic chemotherapy (principal); C50.919 Malignant neoplasm of unspecified site of unspecified female breast; C79.51 Secondary malignant neoplasm of bone
CPT/HCPCS: 36415; 80048; 80076; 82378; 83735; 85025; 86300; 87324; 87449; 96361; 96367; 96375; 96413

== ENCOUNTER 2019-01-11 05:41 | Day surgery (SDC) | payer OTHER ==
[2019-01-11] MEDS ORDERED: TBO-FILGRASTIM 480 MCG/0.8 ML DISP.SYRIN SQ ONE (11:30)
[2019-01-11 18:15] VITALS: BP 148/73; PULSE 91; TEMP 97.9
== END 2019-01-11 14:45 | disposition home or self-care (01) ==
LOC: JONCCHEMO 05:41 → J7W 14:29 → JONCCHEMO 14:45
PROVIDERS: ATTEND Internal Medicine Hematology & Oncology
PROC: 3E013GC Introduction of Other Therapeutic Substance into Subcutaneous Tissue, Percutaneous Approach (ICD-10-PCS; principal; 2019-01-11)
DX: C50.919 Malignant neoplasm of unspecified site of unspecified female breast (principal); C79.51 Secondary malignant neoplasm of bone; Z76.89 Persons encountering health services in other specified circumstances
CPT/HCPCS: 96372; J1447

== ENCOUNTER 2019-01-17 05:41 | Day surgery (SDC) | payer OTHER ==
[2019-01-17] MEDS ORDERED: SODIUM CHLORIDE 250 ML IV ONE ×2 (09:00→11:00)
[2019-01-17] MEDS ORDERED: [UNRECOGNIZED DRUG - OTHER] IVPB ONE (09:30)
[2019-01-17] MEDS ORDERED: DEXAMETHASONE SODIUM PHOSPHATE IVPB ONE (09:30)
[2019-01-17] MEDS ORDERED: ONDANSETRON IVPB ONE (09:30)
[2019-01-17 09:36] LABS: BASO % 1.2 % (0-2.0); EOS % 0.9 % (0-4.5); HEMATOCRIT 25.5 % (32.4-45.2); HEMOGLOBIN 8.6 GM/dL (10.7-15.3); LYMPH % 28.2 % (8-40); MCH 31.2 pg (25.7-33.7); MCHC 33.8 g/dl (32.0-36.0); MEAN CELL VOLUME 92.3 fl (80-96); MEAN PLT VOLUME 7.6 fl (7.5-11.1); MONO % 11.6 % (3.8-10.2); NEUT % 58.1 % (42.8-82.8); PLATELET COUNT 256 K/MM3 (134-434); RBC 2.76 M/mm3 (3.60-5.2); RDW 17.9 % (11.6-15.6); WHITE BLOOD COUNT 3.6 K/mm3 (4.0-10.0)
[2019-01-17 09:55] LABS: ALBUMIN 3.7 g/dl (3.4-5.0); BILIRUBIN,DIRECT 0.1 mg/dL (0.0-0.2); BILIRUBIN,TOTAL 1.1 mg/dL (0.2-1); CALCIUM 8.5 mg/dL (8.5-10.1); CREATININE 0.8 mg/dL (0.55-1.3); MAGNESIUM 2.2 mg/dL (1.8-2.4); POTASSIUM 4.3 mmol/L (3.5-5.1); TOT PROT 6.3 g/dl (6.4-8.2)
[2019-01-17] MEDS ORDERED: PACLITAXEL 138 MG in SODIUM CHLORIDE 250 ML IVPB ONE (10:00)
[2019-01-17 11:50] LABS: ANISOCYTOSIS 1+; MACROCYTOSIS 0; PLATELET ESTIMATE NORMAL
[2019-01-17] MEDS ORDERED: PORTA CATH FLUSH 10 ML IVPUSH ONE (13:26)
[2019-01-17 13:27] VITALS: BP 144/71; PULSE 90; TEMP 98.4
== END 2019-01-17 13:30 | disposition home or self-care (01) ==
LOC: JONCCHEMO 05:41 → J7W 08:54 → JONCCHEMO 13:30
PROVIDERS: ATTEND Internal Medicine Hematology & Oncology
DX: Z51.11 Encounter for antineoplastic chemotherapy (principal); C50.919 Malignant neoplasm of unspecified site of unspecified female breast; C79.51 Secondary malignant neoplasm of bone
CPT/HCPCS: 36415; 80048; 80076; 83735; 85025; 96367; 96375; 96413; J2405

== ENCOUNTER 2019-01-24 07:17 | Day surgery (SDC) | payer OTHER ==
[2019-01-24] MEDS ORDERED: SODIUM CHLORIDE 250 ML IV ONE ×2 (09:00→11:00)
[2019-01-24 09:10] LABS: BASO % 2.1 % (0-2.0); EOS % 0.6 % (0-4.5); HEMATOCRIT 25.9 % (32.4-45.2); HEMOGLOBIN 8.5 GM/dL (10.7-15.3); LYMPH % 30.8 % (8-40); MCH 30.5 pg (25.7-33.7); MCHC 32.9 g/dl (32.0-36.0); MEAN CELL VOLUME 92.7 fl (80-96); MEAN PLT VOLUME 7.9 fl (7.5-11.1); MONO % 5.6 % (3.8-10.2); NEUT % 60.9 % (42.8-82.8); PLATELET COUNT 261 K/MM3 (134-434); RDW 17.8 % (11.6-15.6); WHITE BLOOD COUNT 2.4 K/mm3 (4.0-10.0)
[2019-01-24] MEDS ORDERED: DEXAMETHASONE SODIUM PHOSPHATE 10 MG, ONDANSETRON INJECTION 8 MG, DIPHENHYDRAMINE 50 MG... IVPB ONE (09:30)
[2019-01-24 09:55] LABS: ALBUMIN 3.7 g/dl (3.4-5.0); BILIRUBIN,TOTAL 0.9 mg/dL (0.2-1); BLOOD UREA NITROGEN 10.7 mg/dL (7-18); CALCIUM 8.6 mg/dL (8.5-10.1); CREATININE 0.7 mg/dL (0.55-1.3); MAGNESIUM 2.1 mg/dL (1.8-2.4); POTASSIUM 4.5 mmol/L (3.5-5.1); TOT PROT 6.3 g/dl (6.4-8.2)
[2019-01-24] MEDS ORDERED: PACLITAXEL 138 MG in SODIUM CHLORIDE 250 ML IVPB ONE (10:00)
[2019-01-24 12:24] LABS: ANISOCYTOSIS 1+; MACROCYTOSIS 1+; PLATELET ESTIMATE NORMAL; TEAR DROP CELLS 1+
[2019-01-24 16:29] VITALS: TEMP 98.1
[2019-01-24 16:30] VITALS: BP 123/54; PULSE 78
[2019-01-25 08:06] LABS: CARCINOEMBRYONIC ANTIGEN 2.2 ng/mL (0.0-4.7)
== END 2019-01-24 16:15 | disposition home or self-care (01) ==
LOC: JONCCHEMO 07:17 → J7W 10:26 → JONCCHEMO 16:15
PROVIDERS: ATTEND Internal Medicine Hematology & Oncology
DX: Z51.11 Encounter for antineoplastic chemotherapy (principal); C50.919 Malignant neoplasm of unspecified site of unspecified female breast; C79.51 Secondary malignant neoplasm of bone
CPT/HCPCS: 36415; 80053; 82378; 83735; 85025; 86300; 96367; 96375; 96413; J2405

== ENCOUNTER 2019-01-25 07:16 | Day surgery (SDC) | payer OTHER ==
[2019-01-25] MEDS ORDERED: TBO-FILGRASTIM 480 MCG/0.8 ML DISP.SYRIN SQ ONE (09:00)
[2019-01-25 14:34] VITALS: BP 129/77; PULSE 88; TEMP 98.1
== END 2019-01-25 13:00 | disposition home or self-care (01) ==
LOC: JONCCHEMO 07:16 → J7W 12:35 → JONCCHEMO 13:00
PROVIDERS: ATTEND Internal Medicine Hematology & Oncology
PROC: 3E013GC Introduction of Other Therapeutic Substance into Subcutaneous Tissue, Percutaneous Approach (ICD-10-PCS; principal; 2019-01-25)
DX: C50.919 Malignant neoplasm of unspecified site of unspecified female breast (principal); C79.51 Secondary malignant neoplasm of bone
CPT/HCPCS: 96372; J1447

== ENCOUNTER 2019-01-31 06:46 | Day surgery (SDC) | payer OTHER ==
[2019-01-31 08:44] LABS: BASO % 1.4 % (0-2.0); EOS % 0.6 % (0-4.5); HEMATOCRIT 28.2 % (32.4-45.2); HEMOGLOBIN 9.4 GM/dL (10.7-15.3); LYMPH % 33.3 % (8-40); MCH 30.8 pg (25.7-33.7); MCHC 33.2 g/dl (32.0-36.0); MEAN CELL VOLUME 92.6 fl (80-96); MEAN PLT VOLUME 7.9 fl (7.5-11.1); MONO % 13.4 % (3.8-10.2); NEUT % 51.3 % (42.8-82.8); PLATELET COUNT 274 K/MM3 (134-434); RBC 3.05 M/mm3 (3.60-5.2); RDW 18.4 % (11.6-15.6); WHITE BLOOD COUNT 3.5 K/mm3 (4.0-10.0)
[2019-01-31] MEDS ORDERED: SODIUM CHLORIDE 250 ML IV ONE ×2 (09:00→11:20)
[2019-01-31 09:01] LABS: ALBUMIN 4.1 g/dl (3.4-5.0); CALCIUM 8.9 mg/dL (8.5-10.1); CREATININE 0.8 mg/dL (0.55-1.3); MAGNESIUM 2.1 mg/dL (1.8-2.4); POTASSIUM 4.5 mmol/L (3.5-5.1); TOT PROT 6.7 g/dl (6.4-8.2)
[2019-01-31] MEDS ORDERED: DEXAMETHASONE SODIUM PHOSPHATE 10 MG, ONDANSETRON INJECTION 8 MG, DIPHENHYDRAMINE 50 MG... IVPB ONE (09:30)
[2019-01-31] MEDS ORDERED: PACLITAXEL 138 MG in SODIUM CHLORIDE 250 ML IVPB ONE (10:00)
[2019-01-31] MEDS ORDERED: ZOLEDRONIC ACID 4 MG in SODIUM CHLORIDE 100 ML IVPB ONE (11:00)
[2019-01-31 11:24] LABS: ANISOCYTOSIS 1+; MACROCYTOSIS 0; PLATELET ESTIMATE NORMAL; TEAR DROP CELLS 1+
[2019-01-31 15:18] VITALS: TEMP 98.3
[2019-01-31 15:22] VITALS: BP 116/63; PULSE 81
== END 2019-01-31 12:45 | disposition home or self-care (01) ==
LOC: JONCCHEMO 06:46 → J7W 09:11 → JONCCHEMO 12:45
PROVIDERS: ATTEND Internal Medicine Hematology & Oncology
DX: Z51.11 Encounter for antineoplastic chemotherapy (principal); C50.919 Malignant neoplasm of unspecified site of unspecified female breast; C79.51 Secondary malignant neoplasm of bone
CPT/HCPCS: 36415; 80053; 83735; 85025; 96367; 96375; 96413; 96417; J2405; J3489

== ENCOUNTER 2019-02-07 07:20 | Day surgery (SDC) | payer OTHER ==
[2019-02-07] MEDS ORDERED: SODIUM CHLORIDE 250 ML IV ONE ×2 (09:00→11:00)
[2019-02-07] MEDS ORDERED: ONDANSETRON IVPB ONE (09:30)
[2019-02-07] MEDS ORDERED: DEXAMETHASONE SODIUM PHOSPHATE IVPB ONE (09:30)
[2019-02-07] MEDS ORDERED: [UNRECOGNIZED DRUG - OTHER] IVPB ONE (09:30)
[2019-02-07 09:56] LABS: BASO % 2.4 % (0-2.0); EOS % 0.6 % (0-4.5); HEMATOCRIT 25.7 % (32.4-45.2); HEMOGLOBIN 8.5 GM/dL (10.7-15.3); LYMPH % 30.5 % (8-40); MCHC 33.3 g/dl (32.0-36.0); MEAN CELL VOLUME 93.2 fl (80-96); MEAN PLT VOLUME 8.3 fl (7.5-11.1); NEUT % 58.5 % (42.8-82.8); PLATELET COUNT 302 K/MM3 (134-434); RBC 2.75 M/mm3 (3.60-5.2); RDW 18.3 % (11.6-15.6); WHITE BLOOD COUNT 2.6 K/mm3 (4.0-10.0)
[2019-02-07] MEDS ORDERED: PACLITAXEL 138 MG in SODIUM CHLORIDE 250 ML IVPB ONE (10:00)
[2019-02-07 10:36] LABS: ALBUMIN 3.8 g/dl (3.4-5.0); BLOOD UREA NITROGEN 8.6 mg/dL (7-18); CALCIUM 8.3 mg/dL (8.5-10.1); CREATININE 0.9 mg/dL (0.55-1.3); MAGNESIUM 2.1 mg/dL (1.8-2.4); POTASSIUM 3.8 mmol/L (3.5-5.1); TOT PROT 6.5 g/dl (6.4-8.2)
[2019-02-07 11:47] LABS: MACROCYTOSIS 0; PLATELET ESTIMATE NORMAL; TEAR DROP CELLS 1+
[2019-02-07 14:50] VITALS: TEMP 98.4
[2019-02-07 14:51] VITALS: BP 116/53; PULSE 80
== END 2019-02-07 12:50 | disposition home or self-care (01) ==
LOC: JONCCHEMO 07:20 → J7W 09:36 → JONCCHEMO 12:50
PROVIDERS: ATTEND Internal Medicine Hematology & Oncology
PROC: 3E04305 Introduction of Other Antineoplastic into Central Vein, Percutaneous Approach (ICD-10-PCS; principal; 2019-02-07)
PROC: 3E043GC Introduction of Other Therapeutic Substance into Central Vein, Percutaneous Approach (ICD-10-PCS; 2019-02-07)
PROC: 3E0437Z Introduction of Electrolytic and Water Balance Substance into Central Vein, Percutaneous Approach (ICD-10-PCS; 2019-02-07)
DX: Z51.11 Encounter for antineoplastic chemotherapy (principal); C50.412 Malignant neoplasm of upper-outer quadrant of left female breast; C79.51 Secondary malignant neoplasm of bone; Z17.0 Estrogen receptor positive status [ER+]; I10 Essential (primary) hypertension
CPT/HCPCS: 36415; 80053; 83735; 85025; 96367; 96375; 96413; J2405

== ENCOUNTER 2019-02-14 05:35 | Day surgery (SDC) | payer OTHER ==
[2019-02-14 09:16] LABS: BASO % 2.1 % (0-2.0); HEMATOCRIT 26.3 % (32.4-45.2); HEMOGLOBIN 8.6 GM/dL (10.7-15.3); LYMPH % 34.2 % (8-40); MCH 30.4 pg (25.7-33.7); MCHC 32.6 g/dl (32.0-36.0); MEAN CELL VOLUME 93.2 fl (80-96); MEAN PLT VOLUME 7.9 fl (7.5-11.1); MONO % 10.1 % (3.8-10.2); NEUT % 52.6 % (42.8-82.8); PLATELET COUNT 292 K/MM3 (134-434); RBC 2.82 M/mm3 (3.60-5.2); RDW 18.3 % (11.6-15.6); WHITE BLOOD COUNT 2.3 K/mm3 (4.0-10.0)
[2019-02-14] MEDS ORDERED: SODIUM CHLORIDE 250 ML IV ONE ×2 (09:30→11:30)
[2019-02-14 09:36] LABS: ALBUMIN 3.8 g/dl (3.4-5.0); CALCIUM 8.5 mg/dL (8.5-10.1); CREATININE 0.8 mg/dL (0.55-1.3); TOT PROT 6.2 g/dl (6.4-8.2)
[2019-02-14] MEDS ORDERED: [UNRECOGNIZED DRUG - OTHER] IVPB ONE (10:00)
[2019-02-14] MEDS ORDERED: ONDANSETRON IVPB ONE (10:00)
[2019-02-14] MEDS ORDERED: DEXAMETHASONE SODIUM PHOSPHATE IVPB ONE (10:00)
[2019-02-14] MEDS ORDERED: PACLITAXEL 138 MG in SODIUM CHLORIDE 250 ML IVPB ONE (10:30)
[2019-02-14 12:59] LABS: ANISOCYTOSIS 2+; MACROCYTOSIS 1+; OVALOCYTE 1+; PLATELET ESTIMATE NORMAL; TEAR DROP CELLS 1+
[2019-02-14 15:06] VITALS: BP 124/60; PULSE 83; TEMP 97.9
== END 2019-02-14 12:45 | disposition home or self-care (01) ==
LOC: JONCCHEMO 05:35 → J7W 09:41 → JONCCHEMO 12:45
PROVIDERS: ATTEND Internal Medicine Hematology & Oncology
PROC: 3E04305 Introduction of Other Antineoplastic into Central Vein, Percutaneous Approach (ICD-10-PCS; principal; 2019-02-14)
PROC: 3E043GC Introduction of Other Therapeutic Substance into Central Vein, Percutaneous Approach (ICD-10-PCS; 2019-02-14)
PROC: 3E0437Z Introduction of Electrolytic and Water Balance Substance into Central Vein, Percutaneous Approach (ICD-10-PCS; 2019-02-14)
DX: Z51.11 Encounter for antineoplastic chemotherapy (principal); C50.412 Malignant neoplasm of upper-outer quadrant of left female breast; Z17.0 Estrogen receptor positive status [ER+]; I10 Essential (primary) hypertension; K21.9 Gastro-esophageal reflux disease without esophagitis
CPT/HCPCS: 36415; 80053; 83735; 85025; 96367; 96413

== ENCOUNTER 2019-02-16 10:52 | Day surgery (SDC) | payer OTHER ==
[2019-02-16] MEDS ORDERED: TBO-FILGRASTIM 480 MCG/0.8 ML DISP.SYRIN SQ ONE (12:00)
[2019-02-16 15:07] VITALS: BP 123/66; PULSE 75; TEMP 98.2
== END 2019-02-16 11:45 | disposition home or self-care (01) ==
LOC: JONCCHEMO 10:52 → J7W 11:10 → JONCCHEMO 11:45
PROVIDERS: ATTEND Internal Medicine Hematology & Oncology
PROC: 3E013GC Introduction of Other Therapeutic Substance into Subcutaneous Tissue, Percutaneous Approach (ICD-10-PCS; principal; 2019-02-16)
DX: Z76.89 Persons encountering health services in other specified circumstances (principal); C50.412 Malignant neoplasm of upper-outer quadrant of left female breast; C79.51 Secondary malignant neoplasm of bone; Z17.0 Estrogen receptor positive status [ER+]; I10 Essential (primary) hypertension; K21.9 Gastro-esophageal reflux disease without esophagitis
CPT/HCPCS: 96372; J1447

== ENCOUNTER 2019-03-07 09:38 | Day surgery (SDC) | payer OTHER ==
[2019-03-07 08:53] LABS: BASO % 1.4 % (0-2.0); EOS % 2.1 % (0-4.5); HEMATOCRIT 27.7 % (32.4-45.2); HEMOGLOBIN 9.1 GM/dL (10.7-15.3); LYMPH % 22.7 % (8-40); MCH 30.3 pg (25.7-33.7); MCHC 32.9 g/dl (32.0-36.0); MEAN PLT VOLUME 7.1 fl (7.5-11.1); NEUT % 58.8 % (42.8-82.8); PLATELET COUNT 308 K/MM3 (134-434); RBC 3.01 M/mm3 (3.60-5.2); RDW 18.2 % (11.6-15.6); WHITE BLOOD COUNT 3.4 K/mm3 (4.0-10.0)
[2019-03-07 09:28] LABS: ALBUMIN 3.8 g/dl (3.4-5.0); BILIRUBIN,TOTAL 0.6 mg/dL (0.2-1); BLOOD UREA NITROGEN 13.3 mg/dL (7-18); CALCIUM 8.9 mg/dL (8.5-10.1); CREATININE 0.8 mg/dL (0.55-1.3); MAGNESIUM 2.2 mg/dL (1.8-2.4); POTASSIUM 4.6 mmol/L (3.5-5.1); TOT PROT 6.4 g/dl (6.4-8.2)
[2019-03-07] MEDS ORDERED: FULVESTRANT 250 MG/5 ML SYRINGE IM ONE (10:15)
[2019-03-07 16:28] VITALS: BP 122/60; PULSE 84; TEMP 98.3
[2019-03-08 05:06] LABS: CARCINOEMBRYONIC ANTIGEN 2.2 ng/mL (0.0-4.7)
== END 2019-03-07 11:35 | disposition home or self-care (01) ==
LOC: EDSTATUS 09:38 → JONCCHEMO 09:38 → J7W 10:15 → JONCCHEMO 11:35
PROVIDERS: ATTEND Internal Medicine Hematology & Oncology
DX: Z51.11 Encounter for antineoplastic chemotherapy (principal); C50.412 Malignant neoplasm of upper-outer quadrant of left female breast; C79.51 Secondary malignant neoplasm of bone; Z17.0 Estrogen receptor positive status [ER+]
CPT/HCPCS: 36415; 80053; 82378; 83735; 85025; 86300; 96402; J9395

== ENCOUNTER 2019-03-21 05:36 | Day surgery (SDC) | payer OTHER ==
[2019-03-21 08:28] LABS: BASO % 1.4 % (0-2.0); EOS % 2.2 % (0-4.5); HEMATOCRIT 28.9 % (32.4-45.2); HEMOGLOBIN 9.4 GM/dL (10.7-15.3); LYMPH % 22.3 % (8-40); MCH 28.9 pg (25.7-33.7); MCHC 32.5 g/dl (32.0-36.0); MEAN CELL VOLUME 88.9 fl (80-96); MEAN PLT VOLUME 7.1 fl (7.5-11.1); MONO % 12.5 % (3.8-10.2); NEUT % 61.6 % (42.8-82.8); PLATELET COUNT 309 K/MM3 (134-434); RBC 3.25 M/mm3 (3.60-5.2); RDW 17.7 % (11.6-15.6); WHITE BLOOD COUNT 3.9 K/mm3 (4.0-10.0)
[2019-03-21 08:53] LABS: BLOOD UREA NITROGEN 13.8 mg/dL (7-18); CREATININE 0.9 mg/dL (0.55-1.3); POTASSIUM 4.3 mmol/L (3.5-5.1)
[2019-03-21 08:54] LABS: ALBUMIN 3.8 g/dl (3.4-5.0); BILIRUBIN,TOTAL 0.9 mg/dL (0.2-1); CALCIUM 9.2 mg/dL (8.5-10.1); MAGNESIUM 2.3 mg/dL (1.8-2.4); TOT PROT 6.8 g/dl (6.4-8.2)
[2019-03-21] MEDS ORDERED: FULVESTRANT 250 MG/5 ML SYRINGE IM ONE (10:00)
[2019-03-21 18:05] VITALS: BP 123/74; PULSE 81; TEMP 97.8
== END 2019-03-21 09:55 | disposition home or self-care (01) ==
LOC: JONCCHEMO 05:36 → J7W 09:25 → JONCCHEMO 09:55
PROVIDERS: ATTEND Internal Medicine Hematology & Oncology
DX: Z51.11 Encounter for antineoplastic chemotherapy (principal); C50.412 Malignant neoplasm of upper-outer quadrant of left female breast; C79.51 Secondary malignant neoplasm of bone; Z17.0 Estrogen receptor positive status [ER+]
CPT/HCPCS: 36415; 80053; 83735; 85025; 96402; J9395

== ENCOUNTER 2019-03-31 07:14 | Day surgery (SDC) | payer OTHER ==
[2019-03-31 08:54] LABS: BASO % 1.3 % (0-2.0); EOS % 2.3 % (0-4.5); HEMATOCRIT 26.4 % (32.4-45.2); LYMPH % 26.3 % (8-40); MCH 28.8 pg (25.7-33.7); MCHC 33.9 g/dl (32.0-36.0); MEAN PLT VOLUME 6.8 fl (7.5-11.1); MONO % 10.6 % (3.8-10.2); NEUT % 59.5 % (42.8-82.8); PLATELET COUNT 330 K/MM3 (134-434); RBC 3.11 M/mm3 (3.60-5.2); RDW 17.5 % (11.6-15.6); WHITE BLOOD COUNT 3.7 K/mm3 (4.0-10.0)
[2019-03-31 09:21] LABS: ALBUMIN 3.8 g/dl (3.4-5.0); BILIRUBIN,TOTAL 0.6 mg/dL (0.2-1); BLOOD UREA NITROGEN 15.8 mg/dL (7-18); CALCIUM 8.9 mg/dL (8.5-10.1); CREATININE 0.9 mg/dL (0.55-1.3); MAGNESIUM 1.9 mg/dL (1.8-2.4); POTASSIUM 4.6 mmol/L (3.5-5.1); TOT PROT 6.7 g/dl (6.4-8.2)
[2019-03-31] MEDS ORDERED: FULVESTRANT 250 MG/5 ML SYRINGE IM ONE (10:00)
[2019-03-31 14:28] VITALS: BP 133/62; PULSE 82; TEMP 97.8
[2019-03-31] MEDS ORDERED: PORTA CATH FLUSH 10 ML IVPUSH ONE (14:28)
== END 2019-03-31 10:45 | disposition home or self-care (01) ==
LOC: JONCCHEMO 07:14 → J7W 10:04 → JONCCHEMO 10:45
PROVIDERS: ATTEND Internal Medicine Hematology & Oncology
DX: Z51.11 Encounter for antineoplastic chemotherapy (principal); C50.412 Malignant neoplasm of upper-outer quadrant of left female breast; C79.51 Secondary malignant neoplasm of bone; Z17.0 Estrogen receptor positive status [ER+]; I10 Essential (primary) hypertension
CPT/HCPCS: 36415; 80053; 83735; 85025; 96402; J9395

== ENCOUNTER 2019-05-02 05:22 | Inpatient (IN) | payer OTHER ==
[2019-05-02 08:40] LABS: BASO % 1.8 % (0-2.0); EOS % 2.5 % (0-4.5); HEMATOCRIT 28.4 % (32.4-45.2); HEMOGLOBIN 9.8 GM/dL (10.7-15.3); LYMPH % 44.5 % (8-40); MCH 28.1 pg (25.7-33.7); MCHC 34.6 g/dl (32.0-36.0); MEAN CELL VOLUME 81.2 fl (80-96); MEAN PLT VOLUME 7.5 fl (7.5-11.1); MONO % 14.1 % (3.8-10.2); NEUT % 37.1 % (42.8-82.8); PLATELET COUNT 126 K/MM3 (134-434)
[2019-05-02 08:54] LABS: WHITE BLOOD COUNT 1.9 K/mm3 (4.0-10.0)
[2019-05-02 09:08] LABS: ALBUMIN 3.7 g/dl (3.4-5.0); BILIRUBIN,TOTAL 0.5 mg/dL (0.2-1); BLOOD UREA NITROGEN 15.5 mg/dL (7-18); CREATININE 1.5 mg/dL (0.55-1.3); MAGNESIUM 1.4 mg/dL (1.8-2.4); POTASSIUM 3.6 mmol/L (3.5-5.1); TOT PROT 6.9 g/dl (6.4-8.2)
[2019-05-02 09:13] LABS: CALCIUM 14.4 mg/dL (8.5-10.1)
[2019-05-02] MEDS ORDERED: MAGNESIUM SULF 50% (8.12 MEQ/2 ML-1 GM VIAL) ONE (09:22)
[2019-05-02] MEDS ORDERED: ONDANSETRON IVPB ONE (09:30)
[2019-05-02] MEDS ORDERED: SODIUM CHLORIDE IVPB ONE (09:30)
[2019-05-02] MEDS ORDERED: DEXAMETHASONE IVPB ONE (09:30)
[2019-05-02] MEDS ORDERED: DEXAMETHASONE SOD PHOSPHATE 4 MG/1 ML VIAL ONE (09:39)
[2019-05-02] MEDS ORDERED: ONDANSETRON 4 MG/2 ML VIAL ONE (09:40)
[2019-05-02] MEDS ORDERED: SODIUM CHLORIDE 100 ML IVPB ONE (09:41)
[2019-05-02] MEDS ORDERED: D5-NS + 20 MEQ KCL - 20 MEQ/1,000 ML INFUS.BAG IV SCH (09:45)
[2019-05-02] MEDS ORDERED: MAGNESIUM SULF 50% (8.12 MEQ/2 ML-1 GM VIAL) IVPB ONE (09:45)
[2019-05-02] MEDS ORDERED: ACETAMINOPHEN 325 MG TABLET (FP) PO ONE (10:00)
[2019-05-02] MEDS ORDERED: FULVESTRANT 250 MG/5 ML SYRINGE IM ONE (10:00)
[2019-05-02] MEDS ORDERED: oxyCODONE HCL 5 MG TABLET PO ONE (10:00)
[2019-05-02] MEDS ORDERED: ZOLEDRONIC ACID 3 MG in SODIUM CHLORIDE 100 ML IVPB ONE (10:00)
[2019-05-02] MEDS: PANTOPRAZOLE SODIUM 40 MG VIAL IVPUSH SCH (10:22)
[2019-05-02 11:07] LABS: ANISOCYTOSIS 0; MACROCYTOSIS 0; PLATELET ESTIMATE DECREASED
[2019-05-02] MEDS ORDERED: PORTA CATH FLUSH 10 ML IVPUSH ONE (14:32)
[2019-05-02] MEDS ORDERED: SODIUM CHLORIDE 0.9%/KCL 20 MEQ/1,000 ML INFUS.BAG IV ONE (15:00)
[2019-05-02] MEDS ORDERED: SODIUM CHLORIDE 0.9%/KCL 20 MEQ/1,000 ML INFUS.BAG IV SCH (20:00)
[2019-05-02] MEDS ORDERED: ALPRAZolam 1 MG TABLET PO ONE (22:30)
[2019-05-03] MEDS: PANTOPRAZOLE SODIUM 40 MG VIAL IVPUSH SCH (11:02)
[2019-05-03] MEDS ORDERED: FUROSEMIDE 20 MG TABLET (FP) PO ONE (17:27)
--- NOTE | 2019-05-03 17:49 | PN ---
Progress Note (short form) - Note Progress Note: Patient admitted 05/02 from clinic with hypercalcemia of 14.4. ANC-560-- total PMN's 1900 Tired, weak, fatigued Afebrile Bilateral rib cage pain Last Vital Signs Temp Pulse Resp BP Pulse Ox 98.4 F 82 18 137/73 99 05/03/19 13:33 05/03/19 13:33 05/03/19 13:33 05/03/19 13:33 05/03/19 09:34 HEENT: GLADYS, EOM Intact Oropharynx: No thrush, No mucositis Neck: Supple Nodes: Without adenopathy Breasts: Without masses Cor: RSR, No murmurs, No gallops Lungs: Clear to P&A Abd: Soft, Normal bowel sounds, No organomegaly Ext:LLE edema Skin: No rashes, Integument intact CBC, BMP 05/02/19 07:58 05/02/19 07:58 Current Medications Generic Name Dose Route Start Last Admin Trade Name Freq PRN Reason Stop Dose Admin Amitriptyline HCl 10 mg 05/03/19 22:00 Elavil - PO HS CARTER Furosemide 20 mg 05/03/19 17:27 Lasix - PO 05/03/19 17:28 ONCE ONE Potassium Chloride/Sodium Chloride 20 meq in 1,000 mls @ 150 mls/hr 05/02/19 20:00 05/02/19 21:27 Ns+20 Meq Kcl - IV 150 mls/hr ASDIR CARTER Administration Dextrose/Sodium Chloride 40 meq in 1,000 mls @ 150 mls/hr 05/03/19 17:30 D5-1/2ns+40 Meq Kcl - IV ASDIR CARTER Metoprolol Succinate 25 mg 05/03/19 17:30 Toprol Xl - PO DAILY CARTER Metronidazole 500 mg 05/03/19 22:00 Flagyl - PO TID CARTER Pantoprazole Sodium 40 mg 05/02/19 10:00 05/03/19 11:02 Protonix Iv IVPUSH 40 mg DAILY CARTER Administration Sucralfate 1 gm 05/03/19 18:00 Carafate Oral Suspension - PO QID CARTER Impression: Breast ca Hypercalcemia Bone mets Plan: IV's Dupex lower extremities Monitor labs
[2019-05-03 18:39] LABS: BASO % 1.2 % (0-2.0); EOS % 0.7 % (0-4.5); HEMATOCRIT 22.4 % (32.4-45.2); HEMOGLOBIN 7.5 GM/dL (10.7-15.3); LYMPH % 38.6 % (8-40); MCH 27.9 pg (25.7-33.7); MCHC 33.6 g/dl (32.0-36.0); MEAN CELL VOLUME 82.9 fl (80-96); MEAN PLT VOLUME 7.7 fl (7.5-11.1); MONO % 13.7 % (3.8-10.2); NEUT % 45.8 % (42.8-82.8); PLATELET COUNT 109 K/MM3 (134-434); RDW 18.5 % (11.6-15.6); WHITE BLOOD COUNT 2.3 K/mm3 (4.0-10.0)
[2019-05-03] MEDS: metoPROLOL SUCCINATE 25 MG TAB.SR.24H (FP) PO SCH (19:16)
[2019-05-03] MEDS: D5-1/2NS+40 MEQ KCL - 40 MEQ/1,000 ML INFUS.BAG IV SCH (19:17)
[2019-05-03] MEDS: SUCRALFATE 1 GM/10 ML UNIT DOSE CUPS PO SCH ×2 (19:17→21:11)
[2019-05-03 19:18] LABS: ALBUMIN 2.8 g/dl (3.4-5.0); BILIRUBIN,TOTAL 0.3 mg/dL (0.2-1); BLOOD UREA NITROGEN 13.5 mg/dL (7-18); CALCIUM 11.7 mg/dL (8.5-10.1); CREATININE 1.3 mg/dL (0.55-1.3); POTASSIUM 4.1 mmol/L (3.5-5.1); TOT PROT 5.2 g/dl (6.4-8.2)
[2019-05-03] MEDS: metroNIDAZOLE 250 MG TABLET PO SCH (21:11)
[2019-05-03] MEDS: AMITRIPTYLINE HCL 10 MG TABLET PO SCH (21:11)
[2019-05-04] MEDS: metroNIDAZOLE 250 MG TABLET PO SCH ×3 (06:44→22:01)
[2019-05-04] MEDS: D5-1/2NS+40 MEQ KCL - 40 MEQ/1,000 ML INFUS.BAG IV SCH ×3 (06:45→17:19)
[2019-05-04 07:48] LABS: BASO % 1.1 % (0-2.0); EOS % 1.1 % (0-4.5); HEMATOCRIT 22.6 % (32.4-45.2); HEMOGLOBIN 7.7 GM/dL (10.7-15.3); LYMPH % 36.3 % (8-40); MCH 27.9 pg (25.7-33.7); MEAN CELL VOLUME 82.2 fl (80-96); MEAN PLT VOLUME 7.5 fl (7.5-11.1); MONO % 12.4 % (3.8-10.2); NEUT % 49.1 % (42.8-82.8); PLATELET COUNT 109 K/MM3 (134-434); RBC 2.75 M/mm3 (3.60-5.2); RDW 18.4 % (11.6-15.6); WHITE BLOOD COUNT 2.5 K/mm3 (4.0-10.0)
[2019-05-04 08:24] LABS: ALBUMIN 2.9 g/dl (3.4-5.0); BILIRUBIN,TOTAL 0.3 mg/dL (0.2-1); BLOOD UREA NITROGEN 11.2 mg/dL (7-18); CALCIUM 10.9 mg/dL (8.5-10.1); CREATININE 1.4 mg/dL (0.55-1.3); POTASSIUM 4.4 mmol/L (3.5-5.1); TOT PROT 5.4 g/dl (6.4-8.2)
[2019-05-04] MEDS: metoPROLOL SUCCINATE 25 MG TAB.SR.24H (FP) PO SCH (09:46)
[2019-05-04] MEDS: PANTOPRAZOLE SODIUM 40 MG VIAL IVPUSH SCH (09:46)
[2019-05-04] MEDS: SUCRALFATE 1 GM/10 ML UNIT DOSE CUPS PO SCH ×5 (09:54→22:06)
[2019-05-04] MEDS ORDERED: oxyCODONE HCL 10 MG SUSTAINED ACTING TABLET PO SCH ×2 (10:15)
[2019-05-04] MEDS: oxyCODONE HCL 5 MG TABLET PO PRN (12:15)
[2019-05-04 12:31] LABS: MAGNESIUM 1.3 mg/dL (1.8-2.4)
--- NOTE | 2019-05-04 20:21 | PN ---
Progress Note (short form) - Note Progress Note: Patient seen and examined Nausea and emesis Seen by RT- for outpatient therapy Falling Hct - for transfusion therapy Duplex - LE -negative Last Vital Signs Temp Pulse Resp BP Pulse Ox 98.4 F 80 18 148/70 99 05/04/19 14:35 05/04/19 14:35 05/04/19 14:35 05/04/19 14:35 05/04/19 09:00 HEENT: GLADYS, EOM Intact Oropharynx: No thrush, No mucositis Cor: RSR, No murmurs, No gallops Lungs: Clear to P&A Abd: Soft, Normal bowel sounds, No organomegaly Ext:LLE edema Skin: No rashes, Integument intact CBC, BMP 05/04/19 06:45 05/04/19 06:00 Current Medications Generic Name Dose Route Start Last Admin Trade Name Freq PRN Reason Stop Dose Admin Amitriptyline HCl 10 mg 05/03/19 22:00 05/03/19 21:11 Elavil - PO 10 mg HS CARTER Administration Dextrose/Sodium Chloride 40 meq in 1,000 mls @ 150 mls/hr 05/03/19 17:30 17:19 D5-1/2ns+40 Meq Kcl - IV 150 mls/hr ASDIR CARTER Administration Metoprolol Succinate 25 mg 05/03/19 17:30 05/04/19 09:46 Toprol Xl - PO 25 mg DAILY CARTER Administration Metronidazole 500 mg 05/03/19 22:00 05/04/19 14:39 Flagyl - PO 500 mg TID CARTER Administration Morphine Sulfate 30 mg 05/04/19 22:00 Ms Contin - PO BID CARTER Oxycodone HCl 10 mg 05/04/19 10:03 05/04/19 12:15 Roxicodone - PO 10 mg Q4H PRN Administration PAIN 5-10 Pantoprazole Sodium 40 mg 05/02/19 10:00 05/04/19 09:46 Protonix Iv IVPUSH 40 mg DAILY CARTER Administration Sucralfate 1 gm 05/03/19 18:00 05/04/19 17:19 Carafate Oral Suspension - PO Not Given QID CARTER Impression: Metastatic breast ca Hypercalcemia improved- hydrate/lasix Hypomagnesemia-replete Nausea/emesis--zofran Anemia- transfuse, guaics
[2019-05-04] MEDS ORDERED: MAGNESIUM SULF 50% (8.12 MEQ/2 ML-1 GM VIAL) IVPB ONE (20:24)
[2019-05-04] MEDS ORDERED: FUROSEMIDE 40 MG/4 ML INJECTABLE VIAL IVPUSH ONE (20:25)
--- NOTE | 2019-05-04 20:45 | PN ---
Progress Note (short form) - Note Progress Note: Radiation Oncology Pt seen/chart reviewed, full consult to follow. 69yo well known to me w metastatic breast cancer s/p multiple courses RT a/w hypercalcemia and cytopenias s/p abemaciclib. Electrolytes and anemia being managed. Complains of bilateral rib cage pain, making it difficult to rotate torso. Reluctant use more analgesics. Currently w nausea/emesis. Plain films c/w Diffuse blastic and lytic mets throughout ribs w/o fracture. May benefit from CT scan with markers over areas of most pain. Can be done at time of CT simulation if she wishes to have palliative RT which was discussed. Otherwise consider bone scan to assess most active disease to target. She may follow up in office to proceed with RT when discharged.
[2019-05-04] MEDS: AMITRIPTYLINE HCL 10 MG TABLET PO SCH (22:03)
[2019-05-04] MEDS: ONDANSETRON 4 MG/2 ML VIAL IVPB PRN (22:03)
[2019-05-04] MEDS: morphine SO4 SUSTAINED ACTING 30 MG TABLET.SA PO SCH (22:06)
[2019-05-05] MEDS: metroNIDAZOLE 250 MG TABLET PO SCH ×3 (05:38→21:33)
[2019-05-05 07:41] LABS: BASO % 2.3 % (0-2.0); EOS % 2.1 % (0-4.5); HEMATOCRIT 22.8 % (32.4-45.2); HEMOGLOBIN 7.6 GM/dL (10.7-15.3); LYMPH % 41.5 % (8-40); MCH 27.5 pg (25.7-33.7); MCHC 33.2 g/dl (32.0-36.0); MEAN CELL VOLUME 82.8 fl (80-96); MEAN PLT VOLUME 7.8 fl (7.5-11.1); MONO % 10.6 % (3.8-10.2); NEUT % 43.5 % (42.8-82.8); PLATELET COUNT 109 K/MM3 (134-434); RBC 2.76 M/mm3 (3.60-5.2); RDW 18.2 % (11.6-15.6); WHITE BLOOD COUNT 2.3 K/mm3 (4.0-10.0)
[2019-05-05 08:17] LABS: ALBUMIN 2.7 g/dl (3.4-5.0); BILIRUBIN,TOTAL 0.3 mg/dL (0.2-1); CALCIUM 10.4 mg/dL (8.5-10.1); CREATININE 1.2 mg/dL (0.55-1.3); PHOSPHOROUS 3.2 mg/dL (2.5-4.9); POTASSIUM 4.8 mmol/L (3.5-5.1); TOT PROT 5.4 g/dl (6.4-8.2)
[2019-05-05] MEDS: morphine SO4 SUSTAINED ACTING 30 MG TABLET.SA PO SCH ×2 (09:25→21:34)
[2019-05-05] MEDS: SUCRALFATE 1 GM/10 ML UNIT DOSE CUPS PO SCH ×4 (09:26→21:33)
[2019-05-05] MEDS: metoPROLOL SUCCINATE 25 MG TAB.SR.24H (FP) PO SCH (09:29)
[2019-05-05] MEDS: PANTOPRAZOLE SODIUM 40 MG VIAL IVPUSH SCH (09:29)
--- NOTE | 2019-05-05 12:05 | PN ---
Physical Exam: SUBJECTIVE: Patient seen and examined feeling better today , tolerating diet , denies any N/V/D/C pain is better controlled receiving one unit of blood OBJECTIVE: Vital Signs Period Temp Pulse Resp BP Sys/Nuñez Pulse Ox Last 24 Hr 97.7 F-98.4 F 76-88 18-18 121-163/60-80 99 GENERAL: AAox3 HEAD: NC/AT EYES: PERRL, EOMI ENT: moist mucous membranes.no oral thrush NECK: supple. no lymphadenpathy LUNGS:CTA b/l HEART: Regular rate and rhythm, S1, S2 without murmur, rub or gallop. ABDOMEN: Soft, nontender, nondistended, normoactive bowel sounds, EXTREMITIES: 2+ pulses, warm, well-perfused, trace left leg edema. NEUROLOGICAL: no focal deficit . Normal speech, PSYCH: Normal mood, normal affect. SKIN: Warm, dry, normal turgor, Laboratory Results - last 24 hr 05/04/19 05/05/19 05/05/19 06:00 06:43 06:43 WBC 2.3 L RBC 2.76 L Hgb 7.6 L Hct 22.8 L MCV 82.8 MCH 27.5 MCHC 33.2 RDW 18.2 H Plt Count 109 L MPV 7.8 Absolute Neuts (auto) 1.0 L Neutrophils % 43.5 Lymphocytes % 41.5 H Monocytes % 10.6 H Eosinophils % 2.1 D Basophils % 2.3 H Nucleated RBC % 1 H Sodium 136 138 Potassium 4.4 4.8 Chloride 107 108 H Carbon Dioxide 24 24 Anion Gap 5 L 6 L BUN 11.2 6.0 L Creatinine 1.4 H 1.2 Est GFR (CKD-EPI)AfAm 44.95 54.16 Est GFR (CKD-EPI)NonAf 38.78 46.73 Random Glucose 103 89 Calcium 10.9 H 10.4 H Phosphorus 3.2 Magnesium 1.3 L 2.0 Total Bilirubin 0.3 0.3 AST 54 H 52 H ALT 40 33 Alkaline Phosphatase 199 H 204 H Total Protein 5.4 L 5.4 L Albumin 2.9 L 2.7 L Blood Type Antibody Screen Crossmatch 05/05/19 06:43 WBC RBC Hgb Hct MCV MCH MCHC RDW Plt Count MPV Absolute Neuts (auto) Neutrophils % Lymphocytes % Monocytes % Eosinophils % Basophils % Nucleated RBC % Sodium Potassium Chloride Carbon Dioxide Anion Gap BUN Creatinine Est GFR (CKD-EPI)AfAm Est GFR (CKD-EPI)NonAf Random Glucose Calcium Phosphorus Magnesium Total Bilirubin AST ALT Alkaline Phosphatase Total Protein Albumin Blood Type A POSITIVE Antibody Screen Negative Crossmatch See Detail Active Medications Generic Name Dose Route Start Last Admin Trade Name Freq PRN Reason Stop Dose Admin Amitriptyline HCl 10 mg 05/03/19 22:00 05/04/19 22:03 Elavil - PO 10 mg HS CARTER Administration Dextrose/Sodium Chloride 40 meq in 1,000 mls @ 150 mls/hr 05/03/19 17:30 17:19 D5-1/2ns+40 Meq Kcl - IV 150 mls/hr ASDIR CARTER Administration Metoprolol Succinate 25 mg 05/03/19 17:30 05/05/19 09:29 Toprol Xl - PO 25 mg DAILY CARTER Administration Metronidazole 500 mg 05/03/19 22:00 05/05/19 05:38 Flagyl - PO 500 mg TID CARTER Administration Morphine Sulfate 30 mg 05/04/19 22:00 05/05/19 09:25 Ms Contin - PO 30 mg BID CARTER Administration Ondansetron HCl 8 mg 05/04/19 20:27 05/04/19 22:03 Zofran Injection IVPB 8 mg Q8H PRN Administration NAUSEA Oxycodone HCl 10 mg 05/04/19 10:03 05/04/19 12:15 Roxicodone - PO 10 mg Q4H PRN Administration PAIN 5-10 Pantoprazole Sodium 40 mg 05/02/19 10:00 05/05/19 09:29 Protonix Iv IVPUSH 40 mg DAILY CARTER Administration Sucralfate 1 gm 05/03/19 18:00 05/05/19 09:26 Carafate Oral Suspension - PO Not Given QID [facility] CBC, BMP 05/05/19 06:43 05/05/19 06:43 ASSESSMENT/PLAN: 69yo F w metastatic breast cancer s/p multiple courses RT a/w hypercalcemia and cytopenias s/p abemaciclib. breast cancer with mets , radiation consult recommend bone scan cxr with multiple bone mets blastic and lytic lesions Hyper calcemia corrected 11.4 today cont hydration Anemia maintain Hgb > 8 , monitor daily , transfuse one unit today , occult blood pain control ant emetics as needed Visit type - Emergency Visit Emergency Visit: No - New Patient This patient is new to me today: No - Critical Care Critical Care patient: No - Discharge Referral Referred to [facility] Med P.C.: No ATTENDING PHYSICIAN STATEMENT I saw and evaluated the patient. I reviewed the resident's note and discussed the case with the resident. I agree with the resident's findings and plan as documented. SUBJECTIVE: OBJECTIVE: ASSESSMENT AND PLAN:
[2019-05-05] MEDS ORDERED: FUROSEMIDE 40 MG/4 ML INJECTABLE VIAL IVPUSH ONE (14:30)
--- NOTE | 2019-05-05 14:59 | HP ---
CHIEF COMPLAINT: PCP: HISTORY OF PRESENT ILLNESS: 69yo F w metastatic breast cancer s/p multiple courses RT a/w hypercalcemia and cytopenias s/p abemaciclib. brought to the hospital for infusion treatment was found to have hypercalcemia 14.4. ANC-560-- total PMN's 1899 and was admitted for further evaluation. Us LE negative for DVT reports some nausea and vomiting NBNB reports rib pain , generalized weakness and fatigue. Recent Travel: no PAST MEDICAL HISTORY: metastatic breast cancer (left breast) PAST SURGICAL HISTORY: hysterectomy, right chest chemo-port placement Social History: Smoking:no Alcohol:no Drugs: no Allergies No Known Drug Allergies Allergy HOME MEDICATIONS: Home Medications Medication Instructions Recorded Alprazolam [Xanax] 1 mg PO HS 05/30/17 Gabapentin 300 mg PO TID 05/30/17 Metoprolol Succinate [Toprol Xl] 25 mg PO DAILY 05/30/17 Tramadol HCl 50 mg PO PRN 05/30/17 Decadron 4 mg PO ASDIR 12/06/18 Ms Contin - 30 mg PO Q8H 12/06/18 REVIEW OF SYSTEMS afebrile generalized fatigue N/V rib pain PHYSICAL EXAMINATION Vital Signs - 24 hr 05/04/19 05/04/19 05/04/19 18:00 21:00 22:00 Temperature 98.2 F 98.0 F Pulse Rate 82 88 Respiratory 18 18 Rate Blood Pressure 163/80 149/75 O2 Sat by Pulse 99 Oximetry (%) 05/05/19 05/05/19 06:04 10:00 Temperature 97.7 F 98.1 F Pulse Rate 76 91 H Respiratory 18 18 Rate Blood Pressure 121/60 131/68 O2 Sat by Pulse Oximetry (%) GENERAL: AAox3 HEAD: NC/AT EYES: PERRL, EOMI ENT: moist mucous membranes.no oral thrush NECK: supple. no lymphadenpathy LUNGS:CTA b/l HEART: Regular rate and rhythm, S1, S2 without murmur, rub or gallop. ABDOMEN: Soft, nontender, nondistended, normoactive bowel sounds, EXTREMITIES: 2+ pulses, warm, well-perfused, trace left leg edema. NEUROLOGICAL: no focal deficit . Normal speech, PSYCH: Normal mood, normal affect. SKIN: Warm, dry, normal turgor, Laboratory Results - last 24 hr 01/05/05/19 05/05/19 06:43 06:43 06:43 WBC 2.3 L RBC 2.76 L Hgb 7.6 L Hct 22.8 L MCV 82.8 MCH 27.5 MCHC 33.2 RDW 18.2 H Plt Count 109 L MPV 7.8 Absolute Neuts (auto) 1.0 L Neutrophils % 43.5 Lymphocytes % 41.5 H Monocytes % 10.6 H Eosinophils % 2.1 D Basophils % 2.3 H Nucleated RBC % 1 H Sodium 138 Potassium 4.8 Chloride 108 H Carbon Dioxide 24 Anion Gap 6 L BUN 6.0 L Creatinine 1.2 Est GFR (CKD-EPI)AfAm 54.16 Est GFR (CKD-EPI)NonAf 46.73 Random Glucose 89 Calcium 10.4 H Phosphorus 3.2 Magnesium 2.0 Total Bilirubin 0.3 AST 52 H ALT 33 Alkaline Phosphatase 204 H Total Protein 5.4 L Albumin 2.7 L Blood Type A POSITIVE Antibody Screen Negative Crossmatch See Detail CBC, BMP 05/05/19 06:43 05/05/19 06:43 ASSESSMENT/PLAN: 69yo F w metastatic breast cancer s/p multiple courses RT a/w hypercalcemia and cytopenias s/p abemaciclib. breast cancer with mets , radiation consult recommend bone scan cxr with multiple bone mets blastic and lytic lesions Hyper calcemia corrected 11.4 today cont hydration Anemia maintain Hgb > 8 , monitor daily , transfuse one unit today , occult blood pain control ant emetics as needed Visit type - Emergency Visit Emergency Visit: No - New Patient This patient is new to me today: Yes Date on this admission: 05/05/19 - Critical Care Critical Care patient: No ATTENDING PHYSICIAN STATEMENT I saw and evaluated the patient. I reviewed the resident's note and discussed the case with the resident. I agree with the resident's findings and plan as documented. SUBJECTIVE: OBJECTIVE: ASSESSMENT AND PLAN:
[2019-05-05] MEDS: oxyCODONE HCL 5 MG TABLET PO PRN (17:13)
[2019-05-05] MEDS ORDERED: PORTA CATH FLUSH 10 ML IVPUSH ONE (18:27)
--- NOTE | 2019-05-05 19:51 | PN ---
Progress Note (short form) - Note Progress Note: PAtient seen and examined Denies any specific complaints Receiving PRBCs Last Vital Signs Temp Pulse Resp BP Pulse Ox 98.5 F 83 18 157/78 99 05/05/19 15:00 05/05/19 15:00 05/05/19 15:00 05/05/19 15:00 05/04/19 21:00 Cor: RSR, No murmurs, No gallops Lungs: Clear to P&A Abd: Soft, Normal bowel sounds, No organomegaly Ext:No significant edema Labs/Meds reviewed A/P Metastatic breast ca Hypercalcemia improved- hydrate/lasix Anemia -- transfusing rad-onc f/u outpatient d/c planning
[2019-05-05] MEDS: D5-1/2NS+40 MEQ KCL - 40 MEQ/1,000 ML INFUS.BAG IV SCH ×2 (20:29→21:34)
[2019-05-05] MEDS ORDERED: PT OWN MED DRAWER 7, Y5N ONE (21:20)
[2019-05-05] MEDS: ONDANSETRON 4 MG/2 ML VIAL IVPB PRN (21:33)
[2019-05-05] MEDS: AMITRIPTYLINE HCL 10 MG TABLET PO SCH (21:34)
--- NOTE | 2019-05-06 00:55 | CONS ---
DATE OF CONSULTATION: 05/04/2019 REFERRING PHYSICIAN: Shay Galvan MD. REASON FOR CONSULTATION: Bilateral ribcage pain secondary to breast cancer. HISTORY OF PRESENT ILLNESS: The patient is a 69-year-old woman well known to me with a history of metastatic breast cancer status post multiple courses of radiation therapy including left femur, lumbar spine, cervical spine, and right humeral head/clavicle, most recently completed in September 2018, who was admitted with hypercalcemia and cytopenias status post abemaciclib. Her electrolytes and anemia are being managed. On this admission, she has complained of bilateral ribcage pain making it difficult to move and especially to rotate her torso. She is reluctant to use more analgesia. Currently she has nausea and emesis. Plain films demonstrate diffuse blastic and lytic metastases throughout the ribs without fracture. She denies shortness of breath, cough, numbness or tingling. PAST MEDICAL HISTORY: GERD, hypertension, peptic ulcer. PAST SURGICAL HISTORY: Hysterectomy, cholecystectomy. ALLERGIES: No known drug allergies. CURRENT MEDICATIONS: Flagyl, Elavil, Toprol XL, oxycodone p.r.n., Carafate suspension, Protonix. SOCIAL HISTORY: , lives with her daughters. No alcohol or tobacco use. Retired. REVIEW OF SYSTEMS: As noted above. PHYSICAL EXAMINATION: GENERAL: female, well-nourished, lying in hospital bed with 2 daughters at the bedside. VITAL SIGNS: Temperature 98.4, blood pressure 148/70, pulse 80, respiratory rate 18, FiO2 99% room air. HEENT: Moist mucous membranes. Anicteric sclerae. Clear oral cavity. NECK: No mass or tenderness. CHEST: Lungs are clear. Tenderness in the ribs multiple areas bilaterally, unable to localize a specific area that is worse than the others. ABDOMEN: Soft. Nontender. Nondistended. EXTREMITIES: No edema. RADIOLOGIC DATA: Rib x-rays were reviewed. LABORATORY DATA: WBC 2.5, hemoglobin 7.7, platelet count 109,000. Electrolytes within normal limits. BUN 11.2, creatinine 1.4, calcium 10.9, alkaline phosphatase 199, albumin 2.9. IMPRESSION: Metastatic breast cancer status post multiple courses of radiation therapy with good palliation. Now with bilateral ribcage pain. I reviewed the x-rays, which demonstrate diffuse involvement of all of the ribs. She is unable to localize a specific area. As such, she may benefit from a CT scan with opaque markers over the areas of most intense pain. This can be done at the time of CT simulation if she wishes to have palliative radiotherapy, which was discussed. Otherwise, a bone scan may help to localize the areas of most active disease, which can then be targeted with RT. I discussed this with her and her daughters, and they will follow up with me in the office upon discharge if they wishe to proceed. Thank you for the courtesy of your consultation. ИВАН MORA M.D. [id number] MTDD
[2019-05-06] MEDS: metroNIDAZOLE 250 MG TABLET PO SCH ×2 (06:33→13:45)
[2019-05-06 08:18] LABS: BASO % 2.3 % (0-2.0); EOS % 2.8 % (0-4.5); HEMATOCRIT 29.7 % (32.4-45.2); HEMOGLOBIN 10.2 GM/dL (10.7-15.3); LYMPH % 40.2 % (8-40); MCH 28.7 pg (25.7-33.7); MCHC 34.4 g/dl (32.0-36.0); MEAN CELL VOLUME 83.4 fl (80-96); MEAN PLT VOLUME 7.1 fl (7.5-11.1); MONO % 9.1 % (3.8-10.2); NEUT % 45.6 % (42.8-82.8); PLATELET COUNT 103 K/MM3 (134-434); RBC 3.57 M/mm3 (3.60-5.2); RDW 16.7 % (11.6-15.6); WHITE BLOOD COUNT 2.4 K/mm3 (4.0-10.0)
[2019-05-06 08:35] LABS: ALBUMIN 2.9 g/dl (3.4-5.0); BILIRUBIN,TOTAL 2.5 mg/dL (0.2-1); BLOOD UREA NITROGEN 15.8 mg/dL (7-18); CALCIUM 9.2 mg/dL (8.5-10.1); CREATININE 1.4 mg/dL (0.55-1.3); TOT PROT 5.4 g/dl (6.4-8.2)
[2019-05-06] MEDS: morphine SO4 SUSTAINED ACTING 30 MG TABLET.SA PO SCH (09:05)
[2019-05-06] MEDS: PANTOPRAZOLE SODIUM 40 MG VIAL IVPUSH SCH (09:05)
[2019-05-06] MEDS: SUCRALFATE 1 GM/10 ML UNIT DOSE CUPS PO SCH ×2 (09:06→13:49)
[2019-05-06] MEDS: metoPROLOL SUCCINATE 25 MG TAB.SR.24H (FP) PO SCH (09:08)
[2019-05-06 14:09] VITALS: BMI 23.9
--- NOTE | 2019-05-06 17:28 | PN ---
Progress Note (short form) - Note Progress Note: PAtient seen and examined Denies any specific complaints s/p PRBCs Last Vital Signs Temp Pulse Resp BP Pulse Ox 98.9 F 90 18 124/69 99 05/06/19 10:00 05/06/19 10:00 05/06/19 10:00 05/06/19 10:00 05/06/19 09:00 Cor: RSR, No murmurs, No gallops Lungs: Clear to P&A Abd: Soft, Normal bowel sounds, No organomegaly Ext:No significant edema Abnormal Lab Results 05/06/19 05/06/19 06:00 06:00 WBC 2.4 L RBC 3.57 L Hgb 10.2 L Hct 29.7 L D RDW 16.7 H Plt Count 103 L MPV 7.1 L Absolute Neuts (auto) 1.1 L Lymphocytes % 40.2 H Basophils % 2.3 H Nucleated RBC % 1 H Anion Gap 6 L Creatinine 1.4 H Total Bilirubin 2.5 H D AST 71 H Alkaline Phosphatase 223 H Total Protein 5.4 L Albumin 2.9 L Home Medication List Medication Instructions Recorded Confirmed Type Alprazolam [Xanax] 1 mg PO HS 05/30/17 05/04/19 History Gabapentin 300 mg PO TID 05/30/17 05/04/19 History Metoprolol Succinate [Toprol Xl] 25 mg PO DAILY 05/30/17 05/04/19 History Tramadol HCl 50 mg PO PRN 05/30/17 05/04/19 History Decadron 4 mg PO ASDIR 12/06/18 05/04/19 History Ms Contin - 30 mg PO Q8H 12/06/18 05/04/19 History Active Medications Generic Name Dose Route Start Last Admin Trade Name Freq PRN Reason Stop Dose Admin Amitriptyline HCl 10 mg 05/03/19 22:00 05/05/19 21:34 Elavil - PO 10 mg HS CARTER Administration Dextrose/Sodium Chloride 40 meq in 1,000 mls @ 150 mls/hr 05/03/19 17:30 21:34 D5-1/2ns+40 Meq Kcl - IV 150 mls/hr ASDIR CARTER Administration Metoprolol Succinate 25 mg 05/03/19 17:30 05/06/19 09:08 Toprol Xl - PO 25 mg DAILY CARTER Administration Metronidazole 500 mg 05/03/19 22:00 05/06/19 13:45 Flagyl - PO 500 mg TID CARTER Administration Morphine Sulfate 30 mg 05/04/19 22:00 05/06/19 09:05 Ms Contin - PO 30 mg BID CARTER Administration Ondansetron HCl 8 mg 05/04/19 20:27 05/05/19 21:33 Zofran Injection IVPB 8 mg Q8H PRN Administration NAUSEA Oxycodone HCl 10 mg 05/04/19 10:03 05/05/19 17:13 Roxicodone - PO 10 mg Q4H PRN Administration PAIN 5-10 Pantoprazole Sodium 40 mg 05/02/19 10:00 05/06/19 09:05 Protonix Iv IVPUSH 40 mg DAILY CARTER Administration Sucralfate 1 gm 05/03/19 18:00 05/06/19 13:49 Carafate Oral Suspension - PO Not Given QID CARTER A/P Metastatic breast ca/bone mets Hypercalcemia improved- hydrate/lasix Anemia -- transfusing Holding abemaciclib Continue faslodex rad-onc f/u outpatient f/u with Dr. Galvan outpatient d/c planning
[2019-05-06 18:23] VITALS: BP 129/73; PULSE 85; TEMP 98
== END 2019-05-06 18:53 | disposition home or self-care (01) | DRG 598 ==
LOC: JONCCHEMO 05:22 → J7W 09:14 → JONCCHEMO 09:15 → J7W 15:52
PROVIDERS: ADMIT Internal Medicine Hematology & Oncology; ATTEND Internal Medicine Hematology & Oncology
DX: C50.912 Malignant neoplasm of unspecified site of left female breast (principal); C79.51 Secondary malignant neoplasm of bone; E83.52 Hypercalcemia; E83.42 Hypomagnesemia; R11.0 Nausea; D64.9 Anemia, unspecified; K21.9 Gastro-esophageal reflux disease without esophagitis; I10 Essential (primary) hypertension
CPT/HCPCS: 36415; 36430; 36511; 71101-TC-LT-FY; 71101-TC-RT-FY; 80053; 83735; 84100; 85025; 86850; 86900; 86901; 86922; 87045; 87046; 93970-TC; J3489; J9395; P9038; P9058

== ENCOUNTER 2019-05-17 10:36 | Inpatient (IN) | payer OTHER ==
--- NOTE | 2019-05-18 20:17 | HP ---
Admitting History and Physical - Past Medical History Cardiovascular: Yes: HTN Gastrointestinal: Yes: GERD Heme/Onc: Yes: Cancer (metastatic breast cancer) Psych: Yes: Anxiety - Past Surgical History Past Surgical History: Yes: Cholecystectomy, Hysterectomy - Smoking History Smoking history: Never smoked Have you smoked in the past 12 months: No - Alcohol/Substance Use Hx Alcohol Use: No History of Substance Use: reports: None - Social History ADL: Independent History of Recent Travel: No Home Medications - Allergies Allergies/Adverse Reactions: Allergies Allergy/AdvReac Type Severity Reaction Status Date / Time No Known Drug Allergies Allergy Verified 10/01/18 23:17 - Home Medications Home Medications: Ambulatory Orders Alprazolam [Xanax] 1 mg PO HS 05/30/17 Gabapentin 300 mg PO TID 05/30/17 Metoprolol Succinate [Toprol Xl] 25 mg PO DAILY 05/30/17 Tramadol HCl 50 mg PO PRN 05/30/17 Decadron 4 mg PO ASDIR 12/06/18 Ms Contin - 30 mg PO Q8H 12/06/18 Assessment/Plan Patient seen and examined Admitted with weight loss, nausea, emesis, inability to keep food down, pain in ribs. Metastatic breast ca----taxol, femara, faslodex and abemaciclib most recently. Surgery left femur and knee Extensive bone mets. Multiple lara of RT, BP-142/70 P--89 RR-18 Afebrile HEENT: GLADYS, EOM Intact Oropharynx: No thrush, No mucositis Neck: Supple Nodes: Without adenopathy Breasts: Without masses Cor: RSR, No murmurs, No gallops Lungs: Clear to P&A Abd: Soft, Normal bowel sounds, No organomegaly Ext:No significant edema Skin: No rashes, Integument intact Impression : Metastic breast ca Bone mets Nausea /emesis Failure to thrive Plan: ENVIRONMENTAL CHANGE ANALYST-MRI Decadron/zofran Hydration
[2019-05-18] MEDS ORDERED: DEXAMETHASONE SOD PHOSPHATE 4 MG/1 ML VIAL IVPUSH ONE (20:20)
[2019-05-18] MEDS: ENOXAPARIN NA (PORCINE) 30 MG/0.3 ML DISP.SYRIN SQ SCH (21:16)
[2019-05-18] MEDS: KETOROLAC TROMETHAMINE 30 MG/1 ML VIAL IVPUSH SCH (21:16)
[2019-05-18] MEDS: metoPROLOL SUCCINATE 25 MG TAB.SR.24H (FP) PO SCH (21:17)
[2019-05-18] MEDS: ONDANSETRON 4 MG/2 ML VIAL IVPB PRN (21:17)
[2019-05-18] MEDS: D5-1/2NS+20 MEQ KCL - 20 MEQ/1,000 ML INFUS.BAG IV SCH (21:18)
[2019-05-18] MEDS: SUCRALFATE 1 GM/10 ML UNIT DOSE CUPS PO SCH (21:18)
[2019-05-18] MEDS: PANTOPRAZOLE 40 MG TABLET PO SCH (21:18)
[2019-05-18 21:49] LABS: BASO % 1.4 % (0-2.0); EOS % 1.5 % (0-4.5); HEMATOCRIT 30.6 % (32.4-45.2); HEMOGLOBIN 10.3 GM/dL (10.7-15.3); LYMPH % 32.5 % (8-40); MCH 27.9 pg (25.7-33.7); MCHC 33.8 g/dl (32.0-36.0); MEAN CELL VOLUME 82.5 fl (80-96); MEAN PLT VOLUME 6.9 fl (7.5-11.1); MONO % 15.4 % (3.8-10.2); NEUT % 49.2 % (42.8-82.8); PLATELET COUNT 282 K/MM3 (134-434); RDW 17.6 % (11.6-15.6); WHITE BLOOD COUNT 3.3 K/mm3 (4.0-10.0)
[2019-05-18 22:22] LABS: ALBUMIN 3.2 g/dl (3.4-5.0); BILIRUBIN,TOTAL 0.8 mg/dL (0.2-1); BLOOD UREA NITROGEN 19.4 mg/dL (7-18); CALCIUM 11.3 mg/dL (8.5-10.1); MAGNESIUM 1.5 mg/dL (1.8-2.4); POTASSIUM 3.3 mmol/L (3.5-5.1); TOT PROT 6.4 g/dl (6.4-8.2)
[2019-05-19] MEDS: KETOROLAC TROMETHAMINE 30 MG/1 ML VIAL IVPUSH SCH ×3 (02:02→19:38)
[2019-05-19] MEDS: HYDROmorphone HCL 2 MG TABLET PO PRN (05:57)
[2019-05-19] MEDS: D5-1/2NS+20 MEQ KCL - 20 MEQ/1,000 ML INFUS.BAG IV SCH ×2 (05:58→17:24)
[2019-05-19] MEDS: SUCRALFATE 1 GM/10 ML UNIT DOSE CUPS PO SCH ×4 (05:59→22:07)
[2019-05-19] MEDS: ENOXAPARIN NA (PORCINE) 30 MG/0.3 ML DISP.SYRIN SQ SCH (09:41)
[2019-05-19] MEDS: metoPROLOL SUCCINATE 25 MG TAB.SR.24H (FP) PO SCH (09:41)
[2019-05-19] MEDS: PANTOPRAZOLE 40 MG TABLET PO SCH ×2 (09:41→22:07)
[2019-05-19] MEDS: ONDANSETRON 4 MG/2 ML VIAL IVPB PRN (14:35)
--- NOTE | 2019-05-19 19:39 | CONSULT ---
Consult Consult Specialty:: Nephrology Reason for Consultation:: malnutrition - History of Present Illness Chief Complaint: weight loss and nausea History of Present Illness: Pt is a 69 year old female with pmhx of breast cancer and htn who presents with decreased po intake and fatigue. She says that she has not had much to eat aside from breakfast. She tolerated ensure clear. She denies shortness of breath. She denies dysuria or hematuria. She did not have much for dinner. She was admitted for fluids. - History Source History Provided By: Patient, Medical Record - Past Medical History Cardio/Vascular: Yes: HTN Gastrointestinal: Yes: GERD Psych: Yes: Anxiety - Past Surgical History Past Surgical History: Yes: Cholecystectomy, Hysterectomy - Alcohol/Substance Use Hx Alcohol Use: No History of Substance Use: reports: None - Smoking History Smoking history: Never smoked Have you smoked in the past 12 months: No - Social History Usual Living Arrangement: With Child ADL: Independent History of Recent Travel: No Home Medications - Allergies Allergies/Adverse Reactions: Allergies Allergy/AdvReac Type Severity Reaction Status Date / Time No Known Drug Allergies Allergy Verified 10/01/18 23:17 - Home Medications Home Medications: Ambulatory Orders Alprazolam [Xanax] 1 mg PO HS 05/30/17 Gabapentin 300 mg PO TID 05/30/17 Metoprolol Succinate [Toprol Xl] 25 mg PO DAILY 05/30/17 Tramadol HCl 50 mg PO PRN 05/30/17 Decadron 4 mg PO ASDIR 12/06/18 Ms Contin - 30 mg PO Q8H 12/06/18 Family Medical History Family History: Denies Review of Systems - Review of Systems Constitutional: reports: Malaise Eyes: reports: No Symptoms HENT: reports: No Symptoms Neck: reports: No Symptoms Cardiovascular: reports: No Symptoms Respiratory: reports: No Symptoms Gastrointestinal: reports: No Symptoms Genitourinary: reports: No Symptoms Musculoskeletal: reports: No Symptoms Integumentary: reports: No Symptoms Neurological: reports: No Symptoms Psychiatric: reports: No Symptoms Physical Exam Vital Signs: Vital Signs Temperature 97.5 F L 05/19/19 14:29 Pulse Rate 83 05/19/19 14:29 Respiratory Rate 18 05/19/19 14:29 Blood Pressure 152/84 05/19/19 14:29 O2 Sat by Pulse Oximetry (%) 96 05/19/19 08:49 Constitutional: Yes: Calm Eyes: Yes: Conjunctiva Clear HENT: Yes: Atraumatic Cardiovascular: Yes: S1, S2 Respiratory: Yes: CTA Bilaterally Gastrointestinal: Yes: Soft Musculoskeletal: Yes: WNL Edema: No Neurological: Yes: Oriented Psychiatric: Yes: Oriented Labs: CBC, BMP 05/18/19 21:20 05/18/19 21:20 Problem List - Problems (1) Abnormal liver function tests Code(s): R94.5 - ABNORMAL RESULTS OF LIVER FUNCTION STUDIES (2) Breast cancer, left breast Code(s): C50.912 - MALIGNANT NEOPLASM OF UNSPECIFIED SITE OF LEFT FEMALE BREAST Qualifiers: Breast location: lower inner quadrant of breast Patient sex: female Assessment/Plan Current Medications Generic Name Dose Route Start Last Admin Trade Name Freq PRN Reason Stop Dose Admin Enoxaparin Sodium 30 mg 05/18/19 20:30 05/19/19 09:41 Lovenox - SQ 30 mg DAILY CARTER Administration Hydromorphone HCl 2 mg 05/18/19 20:20 05/19/19 05:57 Dilaudid - PO 2 mg Q4H PRN Administration PAIN LEVEL 1-5 Potassium Chloride/Dextrose/Sod Cl 20 meq in 1,000 mls @ 125 mls/hr 05/18/19 20:30 05/19/19 17:24 D5-1/2ns+20 Meq Kcl - IV 125 mls/hr ASDIR CARTER Administration Ketorolac Tromethamine 30 mg 05/18/19 20:30 05/19/19 09:35 Toradol Injection - IVPUSH 05/23/19 20:29 30 mg Q8H-IV CARTER Administration Metoprolol Succinate 25 mg 05/18/19 20:30 05/19/19 09:41 Toprol Xl - PO 25 mg DAILY CARTER Administration Ondansetron HCl 8 mg 05/18/19 20:20 05/19/19 14:35 Zofran Injection IVPB 8 mg Q8H PRN Administration NAUSEA Pantoprazole Sodium 40 mg 05/18/19 22:00 05/19/19 09:41 Protonix - PO 40 mg BID CARTER Administration Sucralfate 1 gm 05/18/19 22:00 05/19/19 17:24 Carafate Oral Suspension - PO 1 gm ACHS CARTER Administration Impression 1. hyponatremia 2. htn 3. pancytopenia 4. breast cancer 5. hypokalemia 6. hypercalcemia Plan - change fluids to d5ns with potassium - repeat labs in am - will add ensure clear - will evaluate for clinimix tomorrow (it is hypotonic) - monitor sodium level - replace mag - monitor calcium
[2019-05-19] MEDS ORDERED: MAGNESIUM SULF 50% (8.12 MEQ/2 ML-1 GM VIAL) IVPB ONE (19:41)
[2019-05-19] MEDS: D5-NS + 20 MEQ KCL - 20 MEQ/1,000 ML INFUS.BAG IV SCH (20:34)
[2019-05-19] MEDS: MELATONIN 5 MG TABLETS PO PRN (23:25)
[2019-05-20] MEDS: KETOROLAC TROMETHAMINE 30 MG/1 ML VIAL IVPUSH SCH ×2 (01:40→09:23)
[2019-05-20] MEDS: SUCRALFATE 1 GM/10 ML UNIT DOSE CUPS PO SCH ×4 (06:23→21:05)
[2019-05-20 07:45] LABS: BASO % 0.9 % (0-2.0); EOS % 0.4 % (0-4.5); HEMATOCRIT 26.8 % (32.4-45.2); HEMOGLOBIN 9.2 GM/dL (10.7-15.3); LYMPH % 23.2 % (8-40); MCH 28.1 pg (25.7-33.7); MCHC 34.3 g/dl (32.0-36.0); MEAN PLT VOLUME 7.3 fl (7.5-11.1); MONO % 15.4 % (3.8-10.2); NEUT % 60.1 % (42.8-82.8); PLATELET COUNT 274 K/MM3 (134-434); RBC 3.27 M/mm3 (3.60-5.2); RDW 17.8 % (11.6-15.6); WHITE BLOOD COUNT 3.6 K/mm3 (4.0-10.0)
[2019-05-20 08:14] LABS: ALBUMIN 2.8 g/dl (3.4-5.0); BILIRUBIN,TOTAL 0.5 mg/dL (0.2-1); BLOOD UREA NITROGEN 15.4 mg/dL (7-18); CALCIUM 11.7 mg/dL (8.5-10.1); MAGNESIUM 2.1 mg/dL (1.8-2.4); PHOSPHOROUS 3.2 mg/dL (2.5-4.9); TOT PROT 5.7 g/dl (6.4-8.2)
[2019-05-20] MEDS: D5-NS + 20 MEQ KCL - 20 MEQ/1,000 ML INFUS.BAG IV SCH (09:22)
[2019-05-20] MEDS: metoPROLOL SUCCINATE 25 MG TAB.SR.24H (FP) PO SCH (09:23)
[2019-05-20] MEDS: PANTOPRAZOLE 40 MG TABLET PO SCH ×2 (09:23→21:00)
[2019-05-20] MEDS: ENOXAPARIN NA (PORCINE) 30 MG/0.3 ML DISP.SYRIN SQ SCH (09:24)
[2019-05-20] MEDS ORDERED: DEXTROSE 5%-NORMAL SALINE 995 ML with POTASSIUM CHLORIDE 10 MEQ IVPB SCH (09:45)
[2019-05-20 10:58] LABS: ANISOCYTOSIS 0; MACROCYTOSIS 0; PLATELET ESTIMATE NORMAL
[2019-05-20] MEDS ORDERED: POTASSIUM CHLORIDE 10 MEQ in DEXTROSE 5%-NORMAL SALINE 995 ML IVPB SCH ×2 (11:37→14:00)
--- NOTE | 2019-05-20 12:04 | CONSULT ---
Admitting History and Physical - Primary Care Physician PCP: Shay Galvan - Admission History of Present Illness: Pt is a 69 year old female with pmhx of breast cancer and htn who presents with decreased po intake and fatigue,weight loss, nausea, emesis, inability to keep food down, pain in ribs. Metastatic breast ca Extensive bone mets. Multiple lara of RT, Nausea /emesis Failure to thrive Pt reports that she vomited Thursday but not since. 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 History Source: Patient, Family Member, Medical Record Limitations to Obtaining History: Language Barrier - Past Medical History Cardiovascular: Yes: HTN Gastrointestinal: Yes: GERD Heme/Onc: Yes: Cancer (metastatic breast cancer) Psych: Yes: Anxiety - Past Surgical History Past Surgical History: Yes: Cholecystectomy, Hysterectomy - Smoking History Smoking history: Never smoked Have you smoked in the past 12 months: No - Alcohol/Substance Use Hx Alcohol Use: No History of Substance Use: reports: None - Social History ADL: Independent History of Recent Travel: No History - Admission Reason For Visit: BREAST CA, FAILURE TO THRIVE-C50.412,C79.5,R62.5 - Diagnostics MRI: Report Reviewed - General Mental Status: Alert and Oriented, Awake and Alert, Able to Follow Commands Attention: Intact Ability to Follow Directions: Good Head/Neck Control: WFL - Hearing Hearing: Normal Speech Evaluation - Communication Primary Language: ARMENIAN Communication: Yes: Within Normal Limits Oral Expression Ability: Yes: No Impairment - Speech Production Able to Make Needs Known: Yes: WNL Intelligibility: Yes: WNL - Speech Characteristics Voice Loudness: Normal Voice Pitch: Yes: Normal Voice Phonatory-based Quality: Yes: Normal Speech Pattern: Normal Speech Clarity: < 100% Nasal Resonance: Normal Articulation: Yes: Precise Rate of Speech: Intact - Language/Auditory Comprehension Follows: Yes: 2 Stage Simple Commands - Language/Verbal Expression Able to Respond to Simple Queries: Yes: WNL Able to Communicate Wants and Needs: Yes: WNL Functional Communication Status: Yes: WNL Attention: Yes: Intact - Swallow Evaluation/Bedside Assessment Current Nutritional Intake: Regular, Thin Liquids Oral Secretions: Yes: WFL Dentition: Yes: Adequate Facial Symmetry at Rest: Symmetrical Facial Symmetry on Retraction: Symmetrical Facial Movement: Controlled Sensation: Normal Against Resistance Opening: Normal Against Resistance Closing: Normal Pucker Lips: Normal Smile: Normal Lingual Movement: Normal, Symmetric (slightly coated but does not seem to be thrush. Provide mouth care.) Lingual Speed of Movement: Normal Lingual Movement Strgth Against Opposition: Normal Lingual Movement Characteristics: Normal Velopharyngeal Movement: Normal Laryngeal Elevation: WFL Laryngeal Movement: Able to Palpate Rate of Intake: WFL Bolus Size: WFL Labial Seal: WFL Chewing: WFL Oral Prep Time: WFL A-P Transit: WFL Pocketing: None Coughing/Throat Clear: No Change in Voice: No Recommendations - Speech Evaluation, Impression/Plan Impression: Denies Odynophagia. Early satiety, nausea. No clear signs of thrush. Swallowing seems intact. Reports reflux. Receiving Carafate. - Dysphagia Impressions/Plan Swallowing Skills: [facility] Dysphagia Impressions: No Impairment *Silent aspiration: cannot be R/O at bedside Dysphagia Treatment Plan: Elevate HOB during feed, OOB for meals, OOB for 1 h. after meals - Recommendations Diet Consistency: Other (PO as desired and tolerated.)
--- NOTE | 2019-05-20 12:42 | PN ---
Progress Note (short form) - Note Progress Note: Patient seen and examined Lengthy discusion with patient and daughter. Discussed with neurology and RT Complains of some headach intermittently. Complains of numbness left bobbin winder of lips Last Vital Signs Temp Pulse Resp BP Pulse Ox 98.5 F 80 18 164/82 97 05/20/19 09:34 05/20/19 09:34 05/20/19 09:34 05/20/19 09:34 05/20/19 09:00 HEENT: GLADYS, EOM Intact Oropharynx: No thrush, No mucositis Cor: RSR, No murmurs, No gallops Lungs: Clear to P&A Abd: Soft, Normal bowel sounds, No organomegaly Ext:LLE edema Skin: No rashes, Integument intact CBC, BMP 05/20/19 06:00 05/20/19 06:00 Abnormal Lab Results 05/20/19 05/20/19 06:00 06:00 WBC 3.6 L RBC 3.27 L Hgb 9.2 L Hct 26.8 L RDW 17.8 H MPV 7.3 L Monocytes % 15.4 H Monocytes % (Manual) 3 L Nucleated RBC % 1 H Sodium 135 L Calcium 11.7 H AST 116 H Alkaline Phosphatase 305 H Total Protein 5.7 L Albumin 2.8 L Current Medications Generic Name Dose Route Start Last Admin Trade Name Freq PRN Reason Stop Dose Admin Enoxaparin Sodium 30 mg 05/18/19 20:30 05/20/19 09:24 Lovenox - SQ 30 mg DAILY CARTER Administration Hydromorphone HCl 2 mg 05/18/19 20:20 05/19/19 05:57 Dilaudid - PO 2 mg Q4H PRN Administration PAIN LEVEL 1-5 Potassium Chloride 10 meq/ 1,000 mls @ 100 mls/hr 05/20/19 11:37 Dextrose/Sodium Chloride IVPB Q10H CARTER Ketorolac Tromethamine 30 mg 05/18/19 20:30 05/20/19 09:23 Toradol Injection - IVPUSH 05/23/19 20:29 30 mg Q8H-IV CARTER Administration Melatonin 5 mg 05/19/19 23:13 05/19/19 23:25 Melatonin PO 5 mg HS PRN Administration INSOMNIA Metoprolol Succinate 25 mg 05/18/19 20:30 05/20/19 09:23 Toprol Xl - PO 25 mg DAILY CARTER Administration Ondansetron HCl 8 mg 05/18/19 20:20 05/19/19 14:35 Zofran Injection IVPB 8 mg Q8H PRN Administration NAUSEA Pantoprazole Sodium 40 mg 05/18/19 22:00 05/20/19 09:23 Protonix - PO 40 mg BID CARTER Administration Sucralfate 1 gm 05/18/19 22:00 05/20/19 06:23 Carafate Oral Suspension - PO 1 gm ACHS CARTER Administration MRI brain- osseous mets, parameningeal enhancement at sites of osseous mets No parencymal mets Impression: Metastatic bbreast ca Extensive osseous mets Hypercalcemia Malnutrition Nausea and emesis Abnormal MRI Plan [facility] consult RT consult [facility] for CSF ctytology Family has requested GI evaluation in view on N/V as one brother and one sister of patient has stomach ca. ( [employer] and hypercalcemia likely culpable however)
[2019-05-20] MEDS ORDERED: ZOLEDRONIC ACID 4 MG in SODIUM CHLORIDE 100 ML IVPB ONE (15:00)
[2019-05-20] MEDS: HYDROmorphone HCL 2 MG TABLET PO PRN (15:12)
[2019-05-20] MEDS: ONDANSETRON 4 MG/2 ML VIAL IVPB PRN ×2 (16:54→19:58)
--- NOTE | 2019-05-20 18:12 | PN ---
Progress Note, Physician History of Present Illness: Pt seen and examined at bedside. She is awake and alert. She denies shortness of breath. - Current Medication List Current Medications: Active Medications Enoxaparin Sodium (Lovenox -) 30 mg SQ DAILY [facility] Last Admin: 05/20/19 09:24 Dose: 30 mg Hydromorphone HCl (Dilaudid -) 2 mg PO Q4H PRN PRN Reason: PAIN LEVEL 1-5 Last Admin: 05/20/19 15:12 Dose: 2 mg IV Flush (Johann-Cath Flush) 10 ml IVPUSH PRN PRN PRN Reason: protocol Potassium Chloride 10 meq/ (Dextrose/Sodium Chloride) 1,000 mls @ 175 mls/hr IVPB Q6H [facility] Last Admin: 05/20/19 13:55 Dose: 175 mls/hr Melatonin (Melatonin) 5 mg PO HS PRN PRN Reason: INSOMNIA Last Admin: 05/19/19 23:25 Dose: 5 mg Metoprolol Succinate (Toprol Xl -) 25 mg PO DAILY [facility] Last Admin: 05/20/19 09:23 Dose: 25 mg Ondansetron HCl (Zofran Injection) 8 mg IVPB Q8H PRN PRN Reason: NAUSEA Last Admin: 05/20/19 16:54 Dose: 8 mg Pantoprazole Sodium (Protonix -) 40 mg PO BID [facility] Last Admin: 05/20/19 09:23 Dose: 40 mg Sucralfate (Carafate Oral Suspension -) 1 gm PO ACHS [facility] [place] Last Admin: 05/20/19 12:48 Dose: 1 gm - Objective Vital Signs: Vital Signs Temperature 97.9 F 05/20/19 15:02 Pulse Rate 85 05/20/19 15:19 Respiratory Rate 20 05/20/19 15:19 Blood Pressure 166/87 05/20/19 15:19 O2 Sat by Pulse Oximetry (%) 97 05/20/19 09:00 Constitutional: Yes: Calm Eyes: Yes: Conjunctiva Clear HENT: Yes: Atraumatic Neck: Yes: Supple Cardiovascular: Yes: S1, S2 Respiratory: Yes: CTA Bilaterally Gastrointestinal: Yes: Soft Genitourinary: Yes: WNL Musculoskeletal: Yes: WNL Edema: No Neurological: Yes: Oriented Psychiatric: Yes: Oriented Labs: CBC, BMP 05/20/19 06:00 05/20/19 06:00 Problem List - Problems (1) Abnormal liver function tests Code(s): R94.5 - ABNORMAL RESULTS OF LIVER FUNCTION STUDIES (2) Breast cancer, left breast Code(s): C50.912 - MALIGNANT NEOPLASM OF UNSPECIFIED SITE OF LEFT FEMALE BREAST Qualifiers: Breast location: lower inner quadrant of breast Patient sex: female Assessment/Plan Current Medications Generic Name Dose Route Start Last Admin Trade Name Freq PRN Reason Stop Dose Admin Enoxaparin Sodium 30 mg 05/18/19 20:30 05/20/19 09:24 Lovenox - SQ 30 mg DAILY [facility] Administration Hydromorphone HCl 2 mg 05/18/19 20:20 05/20/19 15:12 Dilaudid - PO 2 mg Q4H PRN Administration PAIN LEVEL 1-5 IV Flush 10 ml 05/20/19 16:01 Johann-Cath Flush IVPUSH PRN PRN protocol Potassium Chloride 10 meq/ 1,000 mls @ 175 mls/hr 05/20/19 14:00 05/20/19 13: 55 Dextrose/Sodium Chloride IVPB 175 mls/hr Q6H [facility] Administration Melatonin 5 mg 05/19/19 23:13 05/19/19 23:25 Melatonin PO 5 mg HS PRN Administration INSOMNIA Metoprolol Succinate 25 mg 05/18/19 20:30 05/20/19 09:23 Toprol Xl - PO 25 mg DAILY [facility] Administration Ondansetron HCl 8 mg 05/18/19 20:20 05/20/19 16:54 Zofran Injection IVPB 8 mg Q8H PRN Administration NAUSEA Pantoprazole Sodium 40 mg 05/18/19 22:00 05/20/19 09:23 Protonix - PO 40 mg BID [facility] Administration Sucralfate 1 gm 05/18/19 22:00 05/20/19 12:48 Carafate Oral Suspension - PO 1 gm ACHS [facility] Administration Impression 1. hyponatremia 2. htn 3. pancytopenia 4. breast cancer 5. hypokalemia 6. hypercalcemia Plan - cont fluids - pt did get zometa - of calcium improved can start clinimix tomorrow - cont supplements - monitor sodium level - discussed with Oncology
[2019-05-20] MEDS: POTASSIUM CHLORIDE 10 MEQ in DEXTROSE 5%-NORMAL SALINE 995 ML IVPB SCH ×2 (18:22→22:33)
--- NOTE | 2019-05-20 19:59 | PN ---
Progress Note (short form) - Note Progress Note: Patient seen and examined Feels OK AFVSS Cor: RSR, No murmurs, No gallops Lungs: Clear to P&A Abd: Soft, Normal bowel sounds, No organomegaly Ext:No significant edema Labs/Meds reviewed A/P Metastatic bbreast ca Extensive osseous mets Hypercalcemia Malnutrition Nausea and emesis MRI brain pending Repeat labs RT consult
[2019-05-20] MEDS: amLODIPine BESYLATE 2.5 MG TABLET (FP) PO SCH (20:39)
[2019-05-20] MEDS: MELATONIN 5 MG TABLETS PO PRN (21:00)
--- NOTE | 2019-05-20 21:45 | PN ---
Progress Note (short form) - Note Progress Note: Radiation Oncology follow up. Recently admitted for hypercalcemia and pain management of rib mets. Started RT on Thu (1st tx to left ribs) and readmitted for same. c/o N/V/DEVRIES, mild left facial numbness is unchanged. 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 Previous suspicion of leptomeningeal involvement evaluated at [facility]. Impression: Metastatic breast cancer with pachymeningeal involvement r/o LMD. Consider repeat LP in view of progressive cranial disease (though no parenchymal brain mets seen). Discussed with Dr. Galvan. Patient is considering but reluctant because of procedure related pain. ?sedation/analgesia for LP Neurology evaluation. RT to ribs (5 tx remaining). Pain mgt. Antiemetics. Hydration.
[2019-05-21] MEDS: HYDROmorphone HCL 2 MG TABLET PO PRN ×2 (01:16→17:23)
[2019-05-21] MEDS: POTASSIUM CHLORIDE 10 MEQ in DEXTROSE 5%-NORMAL SALINE 995 ML IVPB SCH ×3 (04:03→09:23)
[2019-05-21] MEDS: SUCRALFATE 1 GM/10 ML UNIT DOSE CUPS PO SCH ×4 (06:14→21:51)
[2019-05-21 07:28] LABS: BASO % 1.1 % (0-2.0); EOS % 0.9 % (0-4.5); HEMATOCRIT 25.8 % (32.4-45.2); HEMOGLOBIN 8.9 GM/dL (10.7-15.3); LYMPH % 22.4 % (8-40); MCH 28.3 pg (25.7-33.7); MCHC 34.5 g/dl (32.0-36.0); MEAN CELL VOLUME 82.1 fl (80-96); MEAN PLT VOLUME 7.4 fl (7.5-11.1); MONO % 17.7 % (3.8-10.2); NEUT % 57.9 % (42.8-82.8); PLATELET COUNT 239 K/MM3 (134-434); RBC 3.14 M/mm3 (3.60-5.2); RDW 18.2 % (11.6-15.6); WHITE BLOOD COUNT 4.1 K/mm3 (4.0-10.0)
[2019-05-21 07:52] LABS: ALBUMIN 2.7 g/dl (3.4-5.0); BILIRUBIN,TOTAL 0.7 mg/dL (0.2-1); BLOOD UREA NITROGEN 11.7 mg/dL (7-18); CALCIUM 10.4 mg/dL (8.5-10.1); CREATININE 0.9 mg/dL (0.55-1.3); MAGNESIUM 1.3 mg/dL (1.8-2.4); PHOSPHOROUS 3.7 mg/dL (2.5-4.9); POTASSIUM 3.8 mmol/L (3.5-5.1); TOT PROT 5.2 g/dl (6.4-8.2)
[2019-05-21] MEDS: ONDANSETRON 4 MG/2 ML VIAL IVPB PRN (08:39)
[2019-05-21] MEDS: ENOXAPARIN NA (PORCINE) 30 MG/0.3 ML DISP.SYRIN SQ SCH (09:18)
[2019-05-21] MEDS: amLODIPine BESYLATE 2.5 MG TABLET (FP) PO SCH (09:18)
[2019-05-21] MEDS: PANTOPRAZOLE 40 MG TABLET PO SCH ×2 (09:18→21:51)
[2019-05-21] MEDS: metoPROLOL SUCCINATE 25 MG TAB.SR.24H (FP) PO SCH (09:18)
--- NOTE | 2019-05-21 09:59 | PN ---
Progress Note (short form) - Note Progress Note: Renal follow up for electrolyte disturbances Coverage for Dr. Jimenez Seen and examined at the bedside reports diffuse body pain that is helped with pain meds no sob, cp, fever, chills making urine on IVF Vital Signs Temperature 98.4 F 05/21/19 06:05 Pulse Rate 95 H 05/21/19 06:05 Respiratory Rate 20 05/21/19 08:28 Blood Pressure 150/71 05/21/19 06:05 O2 Sat by Pulse Oximetry (%) 96 05/21/19 08:28 Intake & Output 05/18/19 05/19/19 05/20/19 05/21/19 23:59 23:59 23:59 23:59 Intake Total 550 1304 820 900 Output Total 300 Balance 550 1304 820 600 Weight 57.379 kg 58.241 kg 60.328 kg 61.19 kg NAD awake and alert RRR CTA no LE edema CBC, BMP 05/21/19 06:00 05/21/19 06:00 Laboratory Tests 05/21/19 06:00 Calcium 10.4 H Magnesium 1.3 L Albumin 2.7 L Current Medications Amlodipine Besylate (Norvasc -) 2.5 mg PO DAILY [facility] Last Admin: 05/21/19 09:18 Dose: 2.5 mg Enoxaparin Sodium (Lovenox -) 30 mg SQ DAILY [facility] Last Admin: 05/21/19 09:18 Dose: 30 mg Hydromorphone HCl (Dilaudid -) 2 mg PO Q4H PRN PRN Reason: PAIN LEVEL 1-5 Last Admin: 05/21/19 01:16 Dose: 2 mg IV Flush (Johann-Cath Flush) 10 ml IVPUSH PRN PRN PRN Reason: protocol Potassium Chloride 10 meq/ (Dextrose/Sodium Chloride) 1,000 mls @ 125 mls/hr IVPB Q8H [facility] Last Admin: 05/21/19 09:23 Dose: 125 mls/hr Melatonin (Melatonin) 5 mg PO HS PRN PRN Reason: INSOMNIA Last Admin: 05/20/19 21:00 Dose: 5 mg Metoprolol Succinate (Toprol Xl -) 25 mg PO DAILY [facility] Last Admin: 05/21/19 09:18 Dose: 25 mg Ondansetron HCl (Zofran Injection) 8 mg IVPB Q8H PRN PRN Reason: NAUSEA Last Admin: 05/21/19 08:39 Dose: 8 mg Pantoprazole Sodium (Protonix -) 40 mg PO BID [facility] Last Admin: 05/21/19 09:18 Dose: 40 mg Sucralfate (Carafate Oral Suspension -) 1 gm PO ACHS [facility] Last Admin: 05/21/19 06:14 Dose: 1 gm Impression 1. hyponatremia 2. htn 3. pancytopenia 4. breast cancer 5. hypokalemia 6. hypercalcemia 7. Hypomagnesemia Plan Corrected Ca is now 11.4. Will change IVF to Clinmix K is improved will add KCL to Climmix Mg is low, will need IV mag sulfate Oncology follow up Jamar Bruno DO
[2019-05-21] MEDS ORDERED: MAGNESIUM SULF 50% (8.12 MEQ/2 ML-1 GM VIAL) IVPB ONE (10:30)
[2019-05-21 11:35] LABS: ANISOCYTOSIS 1+; MACROCYTOSIS 0; PLATELET ESTIMATE NORMAL
[2019-05-21] MEDS: POTASSIUM CHLORIDE 40 MEQ in AMINO ACIDS 4.25%/D5W 1,000 ML IVPB SCH (12:00)
--- NOTE | 2019-05-21 12:32 | PN ---
Progress Note (short form) - Note Progress Note: Seen in follow up. Ongoing headache, facial pain, and pain at various other sites. Poor appetite. Inpatient Meds reviewed. Current Medications Amlodipine Besylate (Norvasc -) 2.5 mg PO DAILY [facility] Last Admin: 05/21/19 09:18 Dose: 2.5 mg Enoxaparin Sodium (Lovenox -) 30 mg SQ DAILY [facility] Last Admin: 05/21/19 09:18 Dose: 30 mg Hydromorphone HCl (Dilaudid -) 2 mg PO Q4H PRN PRN Reason: PAIN LEVEL 1-5 Last Admin: 05/21/19 01:16 Dose: 2 mg IV Flush (Johann-Cath Flush) 10 ml IVPUSH PRN PRN PRN Reason: protocol Potassium Chloride 40 meq/ (Amino Acids) 1,020 mls @ 84 mls/hr IVPB Q12H [facility] Melatonin (Melatonin) 5 mg PO HS PRN PRN Reason: INSOMNIA Last Admin: 05/20/19 21:00 Dose: 5 mg Metoprolol Succinate (Toprol Xl -) 25 mg PO DAILY [facility] Last Admin: 05/21/19 09:18 Dose: 25 mg Ondansetron HCl (Zofran Injection) 8 mg IVPB Q8H PRN PRN Reason: NAUSEA Last Admin: 05/21/19 08:39 Dose: 8 mg Pantoprazole Sodium (Protonix -) 40 mg PO BID [facility] Last Admin: 05/21/19 09:18 Dose: 40 mg Sucralfate (Carafate Oral Suspension -) 1 gm PO ACHS [facility] Last Admin: 05/21/19 06:14 Dose: 1 gm On Examination: Last Vital Signs Temp Pulse Resp BP Pulse Ox 99.3 F 94 H 20 163/2 L 96 05/21/19 10:00 05/21/19 10:00 05/21/19 10:00 05/21/19 10:00 05/21/19 08:28 General: In no acute distress, Extremities: No pallor or icterus. No pedal edema. No palpable lymphadenopathy. CVS: S1, S2, regular, no gallop or murmur. Chest: breathing comfortably Abdomen: soft, non-distended Neuro: Alert, oriented, non-focal. Labs: CBC, BMP 05/21/19 06:00 05/21/19 06:00 Assessment. ER/VA positive, HER2 negative breast cancer metastatic to bone s/p several lines of therapy. 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 Opioid analgesia.
--- NOTE | 2019-05-21 13:58 | CON.NEURO ---
Consult - History of Present Illness History of Present Illness: 69 year old female with pmhx of metatstatic breast cancer with osseous mets with decreased po intake, fatigue, NV --found to have hypercalcemia. GRAY in past for possible leptomeingeal mets ( 11/05, had L numb chin Sx and DEVRIES at that time / ( LP x 2--negative cytology) though called to eval for possible leptomingeal disease as cause for this presentation. + NV continues , pain in then left knee ( s/p surgery for osseus mets) ; numbness in maxiallry area continues, no DEVRIES. MRI BRAIN 05/19/19 Impression. Pathological bone marrow replacement, osseous metastases involving the right posterior temporal temporal bone, occipital bone, to the lesser degree right frontal calvarium toward the vertex. Irregular inner table of the calvarium with pachymeningeal enhancement is noted at the site of the osseous metastases. No evidence of vasogenic edema. No evidence of intra-axial enhancing lesion There is no evidence of abnormal restricted diffusion in the brain to suggest acute or subacute infarction. - Past Medical History Cardio/Vascular: Yes: HTN Gastrointestinal: Yes: GERD Psych: Yes: Anxiety - Past Surgical History Past Surgical History: Yes: Cholecystectomy, Hysterectomy - Alcohol/Substance Use Hx Alcohol Use: No History of Substance Use: reports: None - Smoking History Smoking history: Never smoked Have you smoked in the past 12 months: No - Social History Usual Living Arrangement: With Child ADL: Independent History of Recent Travel: No Home Medications - Allergies Allergies/Adverse Reactions: Allergies Allergy/AdvReac Type Severity Reaction Status Date / Time No Known Drug Allergies Allergy Verified 10/01/18 23:17 - Home Medications Home Medications: Ambulatory Orders Alprazolam [Xanax] 1 mg PO HS 05/30/17 Gabapentin 300 mg PO TID 05/30/17 Metoprolol Succinate [Toprol Xl] 25 mg PO DAILY 05/30/17 Tramadol HCl 50 mg PO PRN 05/30/17 Decadron 4 mg PO ASDIR 12/06/18 Ms Contin - 30 mg PO Q8H 12/06/18 Physical Exam-Neuro Vital Signs: Vital Signs Temperature 99.3 F 05/21/19 10:00 Pulse Rate 94 H 05/21/19 10:00 Respiratory Rate 20 05/21/19 10:00 Blood Pressure 163/2 L 02/01/20 10:00 O2 Sat by Pulse Oximetry (%) 96 05/21/19 08:28 Labs: CBC, BMP 05/21/19 06:00 05/21/19 06:00 - Neuro Exam Level Of Consciousness: Yes: Alert (awake, alert, EOMI, no facial, dec PP left maxillary area, no focal weakness in UE ( effort limited), pain limited movements in LLE, RLE distally 5/5, giat not tested ) Imaging - Results MRI: Report Reviewed, Image Reviewed Problem List - Problems (1) Breast cancer, left breast Code(s): C50.912 - MALIGNANT NEOPLASM OF UNSPECIFIED SITE OF LEFT FEMALE BREAST Qualifiers: Breast location: lower inner quadrant of breast Patient sex: female (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 GRAY in past for possible leptomeingeal mets ( 11/05, had L numb chin Sx and DEVRIES at that time / ( LP x 2--negative cytology) though called to eval for possible leptomingeal disease as cause for this presentation. + NV continues , pain in then left knee ( s/p surgery for osseus mets) ; numbness in maxiallry area continues, no DEVRIES. MRI BRAIN 05/19/19 Impression. Pathological bone marrow replacement, osseous metastases involving the right posterior temporal temporal bone, occipital bone, to the lesser degree right frontal calvarium toward the vertex. Irregular inner table of the calvarium with pachymeningeal enhancement is noted at the site of the osseous metastases. No evidence of vasogenic edema. No evidence of intra-axial enhancing lesion There is no evidence of abnormal restricted diffusion in the brain to suggest acute or subacute infarction. AP : Metastatic breast CA , with hx of numb chin SX, recent fatigue/NV , + skull mets , r/o leptomeningeal component team considering whole brain RT she is reluctant for repeat LP but will think about it and then will decide by AM DR ABBASI
[2019-05-21] MEDS ORDERED: PT OWN MED DRAWER 7, Y5N ONE (20:48)
[2019-05-22] MEDS: POTASSIUM CHLORIDE 40 MEQ in AMINO ACIDS 4.25%/D5W 1,000 ML IVPB SCH ×3 (00:22→23:40)
[2019-05-22 05:45] LABS: BLOOD UREA NITROGEN 20.2 mg/dL (7-18); CALCIUM 9.7 mg/dL (8.5-10.1); CREATININE 0.7 mg/dL (0.55-1.3); MAGNESIUM 1.6 mg/dL (1.8-2.4); PHOSPHOROUS 2.8 mg/dL (2.5-4.9); POTASSIUM 4.3 mmol/L (3.5-5.1)
[2019-05-22] MEDS: SUCRALFATE 1 GM/10 ML UNIT DOSE CUPS PO SCH ×4 (07:05→21:11)
[2019-05-22] MEDS: ONDANSETRON 4 MG/2 ML VIAL IVPB PRN ×2 (09:08→17:02)
[2019-05-22] MEDS: PANTOPRAZOLE 40 MG TABLET PO SCH ×2 (09:08→21:11)
[2019-05-22] MEDS: amLODIPine BESYLATE 2.5 MG TABLET (FP) PO SCH (09:08)
[2019-05-22] MEDS: metoPROLOL SUCCINATE 25 MG TAB.SR.24H (FP) PO SCH (09:09)
[2019-05-22] MEDS: ENOXAPARIN NA (PORCINE) 30 MG/0.3 ML DISP.SYRIN SQ SCH (09:18)
--- NOTE | 2019-05-22 10:22 | PN ---
Progress Note (short form) - Note Progress Note: Renal follow up for electrolyte disturbances Coverage for Dr. Jimenez Seen and examined at the bedside continues to have nausea. Not tolerating oral diet. ON IV clinimix no sob, cp, fever, chills making urine Vital Signs Temperature 98.8 F 05/22/19 09:14 Pulse Rate 94 H 05/22/19 09:14 Respiratory Rate 20 05/22/19 09:14 Blood Pressure 161/85 05/22/19 09:14 O2 Sat by Pulse Oximetry (%) 96 05/21/19 21:00 Intake & Output 05/19/19 05/20/19 05/21/19 05/22/19 23:59 23:59 23:59 23:59 Intake Total 4976 902 7367 756 Output Total 300 Balance 5776 690 7493 756 Weight 58.241 kg 60.328 kg 61.19 kg NAD awake and alert RRR CTA no LE edema CBC, BMP 05/21/19 06:00 05/22/19 05:00 Current Medications Amlodipine Besylate (Norvasc -) 2.5 mg PO DAILY [facility] Last Admin: 05/22/19 09:08 Dose: 2.5 mg Enoxaparin Sodium (Lovenox -) 30 mg SQ DAILY [facility] Last Admin: 05/21/19 09:18 Dose: 30 mg IV Flush (Johann-Cath Flush) 10 ml IVPUSH PRN PRN PRN Reason: protocol Potassium Chloride 40 meq/ (Amino Acids) 1,020 mls @ 42 mls/hr IVPB Q12H [facility] Magnesium Sulfate (Magnesium Sulfate) 2 gm IVPB ONCE ONE Stop: 05/22/19 10:31 Last Admin: 05/22/19 10:02 Dose: 2 gm Melatonin (Melatonin) 5 mg PO HS PRN PRN Reason: INSOMNIA Last Admin: 05/20/19 21:00 Dose: 5 mg Metoprolol Succinate (Toprol Xl -) 25 mg PO DAILY [facility] Last Admin: 05/22/19 09:09 Dose: 25 mg Ondansetron HCl (Zofran Injection) 8 mg IVPB Q8H PRN PRN Reason: NAUSEA Last Admin: 05/22/19 09:08 Dose: 8 mg Pantoprazole Sodium (Protonix -) 40 mg PO BID [facility] Last Admin: 05/22/19 09:08 Dose: 40 mg Sucralfate (Carafate Oral Suspension -) 1 gm PO ACHS [facility] Last Admin: 05/22/19 07:05 Dose: 1 gm Impression 1. hyponatremia 2. htn 3. pancytopenia 4. breast cancer 5. hypokalemia 6. hypercalcemia 7. Hypomagnesemia Plan Corrected Ca is now 10.7. Decrease rate of Clinmix to 42cc per hour as serum Na is downtrending Antiemetics PRN K is improved will add KCL to Climmix Mg is low, will need IV mag sulfate and PO Mg Oxide daily Oncology follow up Jamar Bruno DO
[2019-05-22] MEDS ORDERED: MAGNESIUM SULF 50% (8.12 MEQ/2 ML-1 GM VIAL) IVPB ONE (10:30)
[2019-05-22] MEDS ORDERED: LORazepam 2 MG/ML SDV VIAL IVPUSH PRN (12:19)
[2019-05-22] MEDS ORDERED: MORPHINE SULFATE 2 MG/ML VIAL IVPUSH PRN (12:20)
[2019-05-22 12:54] LABS: INR 1.14 (0.83-1.09); PROTHROMBIN TIME (PATIENT) 13.5 SEC (9.7-13.0)
[2019-05-22 12:57] LABS: ACTIVATED PTT 42.8 SECONDS (25.2-36.5)
[2019-05-22] MEDS: HYDROmorphone HCL 2 MG TABLET PO PRN ×2 (13:31→21:11)
--- NOTE | 2019-05-22 13:34 | PN ---
Progress Note (short form) - Note Progress Note: 69 year old female with pmhx of metatstatic breast cancer with osseous mets with decreased po intake, fatigue, NV --found to have hypercalcemia. GRAY in past for possible leptomeingeal mets ( 11/05, had L numb chin Sx and DEVRIES at that time / ( LP x 2--negative cytology) though called to eval for possible leptomingeal disease as cause for this presentation. + NV continues , pain in then left knee ( s/p surgery for osseus mets) ; numbness in maxiallry area continues, no DEVRIES. MRI BRAIN 05/19/19 Impression. Pathological bone marrow replacement, osseous metastases involving the right posterior temporal temporal bone, occipital bone, to the lesser degree right frontal calvarium toward the vertex. Irregular inner table of the calvarium with pachymeningeal enhancement is noted at the site of the osseous metastases. No evidence of vasogenic edema. No evidence of intra-axial enhancing lesion There is no evidence of abnormal restricted diffusion in the brain to suggest acute or subacute infarction. FU : agrees to LP, though PTT slightly elevated spoke to covering HEM doc , plan for FFP and recheck PTT , if WNL , then can proceed with flouroguided LP in AM - Past Medical History Cardio/Vascular: Yes: HTN Gastrointestinal: Yes: GERD Psych: Yes: Anxiety - Past Surgical History Past Surgical History: Yes: Cholecystectomy, Hysterectomy - Alcohol/Substance Use Hx Alcohol Use: No History of Substance Use: reports: None - Smoking History Smoking history: Never smoked Have you smoked in the past 12 months: No - Social History Usual Living Arrangement: With Child ADL: Independent History of Recent Travel: No Home Medications - Allergies Allergies/Adverse Reactions: Allergies Allergy/AdvReac Type Severity Reaction Status Date / Time No Known Drug Allergies Allergy Verified 10/01/18 23:17 - Home Medications Home Medications: Ambulatory Orders Alprazolam [Xanax] 1 mg PO HS 05/30/17 Gabapentin 300 mg PO TID 05/30/17 Metoprolol Succinate [Toprol Xl] 25 mg PO DAILY 05/30/17 Tramadol HCl 50 mg PO PRN 05/30/17 Decadron 4 mg PO ASDIR 12/06/18 Ms Contin - 30 mg PO Q8H 12/06/18 Physical Exam-Neuro Vital Signs: Vital Signs Temperature 98.8 F 05/22/19 09:14 Pulse Rate 94 H 05/22/19 09:14 Respiratory Rate 20 05/22/19 09:14 Blood Pressure 161/85 05/22/19 09:14 O2 Sat by Pulse Oximetry (%) 96 05/21/19 21:00 Labs: CBC, BMP CBCD WBC 4.1 K/mm3 (4.0-10.0) 05/21/19 06:00 RBC 3.14 M/mm3 (3.60-5.2) L 05/21/19 06:00 Hgb 8.9 GM/dL (10.7-15.3) L 05/21/19 06:00 Hct 25.8 % (32.4-45.2) L 05/21/19 06:00 MCV 82.1 fl (80-96) 05/21/19 06:00 MCHC 34.5 g/dl (32.0-36.0) 05/21/19 06:00 RDW 18.2 % (11.6-15.6) H 05/21/19 06:00 Plt Count 239 K/MM3 (134-434) 05/21/19 06:00 MPV 7.4 fl (7.5-11.1) L 05/21/19 06:00 CMP Sodium 130 mmol/L (136-145) L 05/22/19 05:00 Potassium 4.3 mmol/L (3.5-5.1) 05/22/19 05:00 Chloride 97 mmol/L (98-107) L 05/22/19 05:00 Carbon Dioxide 24 mmol/L (21-32) 05/22/19 05:00 Anion Gap 8 MMOL/L (8-16) 05/22/19 05:00 BUN 20.2 mg/dL (7-18) H 05/22/19 05:00 Creatinine 0.7 mg/dL (0.55-1.3) 05/22/19 05:00 Calcium 9.7 mg/dL (8.5-10.1) 05/22/19 05:00 Total Bilirubin 0.7 mg/dL (0.2-1) 05/21/19 06:00 AST 96 U/L (15-37) H 05/21/19 06:00 ALT 42 U/L (13-61) 05/21/19 06:00 Alkaline Phosphatase 322 U/L (45-117) H 05/21/19 06:00 Total Protein 5.2 g/dl (6.4-8.2) L 05/21/19 06:00 Albumin 2.7 g/dl (3.4-5.0) L 05/21/19 06:00 05/21/19 06:00 05/21/19 06:00 - Neuro Exam Level Of Consciousness: Yes: Alert (awake, alert, EOMI, no facial, dec PP left maxillary area, no focal weakness in UE ( effort limited), pain limited movements in LLE, RLE distally 5/5, giat not tested ) Imaging - Results MRI: Report Reviewed, Image Reviewed Problem List - Problems (1) Breast cancer, left breast Code(s): C50.912 - MALIGNANT NEOPLASM OF UNSPECIFIED SITE OF LEFT FEMALE BREAST Qualifiers: Breast location: lower inner quadrant of breast Patient sex: female (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 GRAY in past for possible leptomeingeal mets ( 11/05, had L numb chin Sx and DEVRIES at that time / ( LP x 2--negative cytology) though called to eval for possible leptomingeal disease as cause for this presentation. + NV continues , pain in then left knee ( s/p surgery for osseus mets) ; numbness in maxiallry area continues, no DEVRIES. MRI BRAIN 05/19/19 Impression. Pathological bone marrow replacement, osseous metastases involving the right posterior temporal temporal bone, occipital bone, to the lesser degree right frontal calvarium toward the vertex. Irregular inner table of the calvarium with pachymeningeal enhancement is noted at the site of the osseous metastases. No evidence of vasogenic edema. No evidence of intra-axial enhancing lesion There is no evidence of abnormal restricted diffusion in the brain to suggest acute or subacute infarction. 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
[2019-05-22] MEDS: MAGNESIUM CL 64 MG TABLET.SA PO SCH (14:03)
[2019-05-22 15:17] LABS: INR 1.13 (0.83-1.09); PROTHROMBIN TIME (PATIENT) 13.4 SEC (9.7-13.0)
[2019-05-22 15:21] LABS: ACTIVATED PTT 34.3 SECONDS (25.2-36.5)
--- NOTE | 2019-05-22 16:56 | PN ---
Progress Note (short form) - Note Progress Note: Seen in follow up. Headache, facial pain, and pain at various other sites generally improved. Poor appetite. Also complaining of nausea. Inpatient Meds reviewed. Current Medications Current Medications Amlodipine Besylate (Norvasc -) 2.5 mg PO DAILY [facility] Last Admin: 05/22/19 09:08 Dose: 2.5 mg Enoxaparin Sodium (Lovenox -) 30 mg SQ DAILY [facility] Last Admin: 05/22/19 09:18 Dose: Not Given Hydromorphone HCl (Dilaudid -) 2 mg PO Q4H PRN PRN Reason: PAIN LEVEL 7 - 10 Last Admin: 05/22/19 13:31 Dose: 2 mg IV Flush (Johann-Cath Flush) 10 ml IVPUSH PRN PRN PRN Reason: protocol Potassium Chloride 40 meq/ (Amino Acids) 1,020 mls @ 42 mls/hr IVPB Q12H [facility] Last Admin: 05/22/19 12:45 Dose: 42 mls/hr Lorazepam (Ativan Injection -) 1 mg IVPUSH ONCE PRN PRN Reason: ANXIETY Stop: 05/22/19 23:59 Magnesium Chloride (Slow-Mag -) 64 mg PO DAILY [facility] Melatonin (Melatonin) 5 mg PO HS PRN PRN Reason: INSOMNIA Last Admin: 05/20/19 21:00 Dose: 5 mg Metoprolol Succinate (Toprol Xl -) 25 mg PO DAILY [facility] Last Admin: 05/22/19 09:09 Dose: 25 mg Morphine Sulfate (Morphine Sulfate) 2 mg IVPUSH ONCE PRN PRN Reason: PAIN LEVEL 4 - 6 Stop: 05/22/19 23:59 Ondansetron HCl (Zofran Injection) 8 mg IVPB Q8H PRN PRN Reason: NAUSEA Last Admin: 05/22/19 09:08 Dose: 8 mg Pantoprazole Sodium (Protonix -) 40 mg PO BID [facility] Last Admin: 05/22/19 09:08 Dose: 40 mg Sucralfate (Carafate Oral Suspension -) 1 gm PO ACHS [facility] Last Admin: 05/22/19 12:45 Dose: 1 gm On Examination: Last Vital Signs Temp Pulse Resp BP Pulse Ox 99.2 F 87 20 148/79 97 05/22/19 15:08 05/22/19 15:08 05/22/19 15:08 05/22/19 15:08 05/22/19 09:00 General: In no acute distress, Extremities: No pallor or icterus. No pedal edema. No palpable lymphadenopathy. CVS: S1, S2, regular, no gallop or murmur. Chest: breathing comfortably Abdomen: soft, non-distended Neuro: Alert, oriented, non-focal. Labs: CBC, BMP 05/21/19 06:00 05/22/19 05:00 INR, PTT INR 1.13 (0.83-1.09) H 05/22/19 14:14 Assessment. ER/PA positive, HER2 negative breast cancer metastatic to bone s/p several lines of therapy. 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 LP planned for this morning postponed due to unexplained prolonged PTT, likely artifactual. Repeat PTT within normal limits - cleared for LP. Ongoing opioid analgesia. 5HT antagonist for nausea
[2019-05-23] MEDS: HYDROmorphone HCL 2 MG TABLET PO PRN ×3 (05:02→21:00)
[2019-05-23] MEDS: SUCRALFATE 1 GM/10 ML UNIT DOSE CUPS PO SCH ×5 (06:17→21:04)
[2019-05-23 07:29] LABS: INR 1.15 (0.83-1.09); PROTHROMBIN TIME (PATIENT) 13.6 SEC (9.7-13.0)
[2019-05-23 07:32] LABS: ACTIVATED PTT 75.5 SECONDS (25.2-36.5)
[2019-05-23 07:33] LABS: BLOOD UREA NITROGEN 19.5 mg/dL (7-18); CALCIUM 9.4 mg/dL (8.5-10.1); CREATININE 0.8 mg/dL (0.55-1.3); PHOSPHOROUS 3.1 mg/dL (2.5-4.9); POTASSIUM 4.3 mmol/L (3.5-5.1)
[2019-05-23] MEDS: PANTOPRAZOLE 40 MG TABLET PO SCH ×2 (09:10→21:04)
[2019-05-23] MEDS: MAGNESIUM CL 64 MG TABLET.SA PO SCH (09:10)
[2019-05-23] MEDS: metoPROLOL SUCCINATE 25 MG TAB.SR.24H (FP) PO SCH (09:10)
[2019-05-23] MEDS: amLODIPine BESYLATE 2.5 MG TABLET (FP) PO SCH (09:11)
[2019-05-23] MEDS: POTASSIUM CHLORIDE 40 MEQ in AMINO ACIDS 4.25%/D5W 1,000 ML IVPB SCH ×2 (11:43→18:22)
[2019-05-23] MEDS ORDERED: MORPHINE SULFATE 2 MG/ML VIAL IVPUSH ONE (13:15)
[2019-05-23] MEDS ORDERED: LORazepam 0.5 MG TABLET PO ONE (13:15)
[2019-05-23] MEDS: ENOXAPARIN NA (PORCINE) 30 MG/0.3 ML DISP.SYRIN SQ SCH (14:53)
--- NOTE | 2019-05-23 17:55 | PN ---
Progress Note, Physician History of Present Illness: Pt seen and examined at bedside. She is awake and appears comfortable. She denies shortness of breath. - Current Medication List Current Medications: Active Medications Amlodipine Besylate (Norvasc -) 2.5 mg PO DAILY [facility] Last Admin: 05/23/19 09:11 Dose: 2.5 mg Enoxaparin Sodium (Lovenox -) 30 mg SQ DAILY [facility] Last Admin: 05/23/19 14:53 Dose: Not Given Hydromorphone HCl (Dilaudid -) 2 mg PO Q4H PRN PRN Reason: PAIN LEVEL 7 - 10 Last Admin: 05/23/19 15:27 Dose: 2 mg IV Flush (Johann-Cath Flush) 10 ml IVPUSH PRN PRN PRN Reason: protocol Potassium Chloride 40 meq/ (Amino Acids) 1,020 mls @ 42 mls/hr IVPB Q12H [facility] Last Admin: 05/23/19 11:43 Dose: 42 mls/hr Magnesium Chloride (Slow-Mag -) 64 mg PO DAILY [facility] Last Admin: 05/23/19 09:10 Dose: 64 mg Melatonin (Melatonin) 5 mg PO HS PRN PRN Reason: INSOMNIA Last Admin: 05/20/19 21:00 Dose: 5 mg Metoprolol Succinate (Toprol Xl -) 25 mg PO DAILY [facility] Last Admin: 05/23/19 09:10 Dose: 25 mg Ondansetron HCl (Zofran Injection) 8 mg IVPB Q8H PRN PRN Reason: NAUSEA Last Admin: 05/22/19 17:02 Dose: 8 mg Pantoprazole Sodium (Protonix -) 40 mg PO BID [facility] Last Admin: 05/23/19 09:10 Dose: 40 mg Sucralfate (Carafate Oral Suspension -) 1 gm PO ACHS [facility] Last Admin: 05/23/19 15:29 Dose: 1 gm - Objective Vital Signs: Vital Signs Temperature 99.1 F 05/23/19 17:26 Pulse Rate 89 05/23/19 17:26 Respiratory Rate 18 05/23/19 17:26 Blood Pressure 154/71 05/23/19 17:26 O2 Sat by Pulse Oximetry (%) 96 05/23/19 09:00 Constitutional: Yes: Calm Eyes: Yes: Conjunctiva Clear HENT: Yes: Atraumatic Neck: Yes: Supple Cardiovascular: Yes: S1, S2 Respiratory: Yes: CTA Bilaterally Gastrointestinal: Yes: Soft Genitourinary: Yes: WNL Musculoskeletal: Yes: WNL Edema: No Neurological: Yes: Oriented Psychiatric: Yes: Oriented Labs: CBC, BMP 05/21/19 06:00 05/23/19 06:15 INR, PTT INR 1.13 (0.83-1.09) H 05/22/19 14:14 Problem List - Problems (1) Abnormal liver function tests Code(s): R94.5 - ABNORMAL RESULTS OF LIVER FUNCTION STUDIES (2) Breast cancer, left breast Code(s): C50.912 - MALIGNANT NEOPLASM OF UNSPECIFIED SITE OF LEFT FEMALE BREAST Qualifiers: Breast location: lower inner quadrant of breast Patient sex: female Assessment/Plan Current Medications Generic Name Dose Route Start Last Admin Trade Name Freq PRN Reason Stop Dose Admin Amlodipine Besylate 2.5 mg 05/20/19 21:00 05/23/19 09:11 Norvasc - PO 2.5 mg DAILY [facility] Administration Enoxaparin Sodium 30 mg 05/18/19 20:30 05/23/19 14:53 Lovenox - SQ Not Given DAILY [facility] Hydromorphone HCl 2 mg 05/22/19 12:17 05/23/19 15:27 Dilaudid - PO 2 mg Q4H PRN Administration PAIN LEVEL 7 - 10 IV Flush 10 ml 05/20/19 16:01 Johann-Cath Flush IVPUSH PRN PRN protocol Potassium Chloride 40 meq/ 1,020 mls @ 42 mls/hr 05/22/19 10:30 05/23/19 11: 43 Amino Acids IVPB 42 mls/hr Q12H [facility] Administration Magnesium Chloride 64 mg 05/22/19 11:15 05/23/19 09:10 Slow-Mag - PO 64 mg DAILY [facility] Administration Melatonin 5 mg 05/19/19 23:13 05/20/19 21:00 Melatonin PO 5 mg HS PRN Administration INSOMNIA Metoprolol Succinate 25 mg 05/18/19 20:30 05/23/19 09:10 Toprol Xl - PO 25 mg DAILY [facility] Administration Ondansetron HCl 8 mg 05/18/19 20:20 05/22/19 17:02 Zofran Injection IVPB 8 mg Q8H PRN Administration NAUSEA Pantoprazole Sodium 40 mg 05/18/19 22:00 05/23/19 09:10 Protonix - PO 40 mg BID [facility] Administration Sucralfate 1 gm 05/18/19 22:00 05/23/19 15:29 Carafate Oral Suspension - PO 1 gm ACHS [facility] Administration Impression 1. hyponatremia 2. htn 3. pancytopenia 4. breast cancer 5. hypokalemia 6. hypercalcemia Plan - cont clinimix, will increase rate - repeat labs in am - check phos - cont mag supplements for now - monitor calcium levels
--- NOTE | 2019-05-23 18:14 | PN ---
Progress Note (short form) - Note Progress Note: Patient seen and examined Feels OK Last Vital Signs Temp Pulse Resp BP Pulse Ox 99.1 F 89 18 154/71 96 05/23/19 17:26 05/23/19 17:26 05/23/19 17:26 05/23/19 17:05/23/19 09:00 Cor: RSR, No murmurs, No gallops Lungs: Clear to P&A Abd: Soft, Normal bowel sounds, No organomegaly Ext:No significant edema Labs/Meds reviewed A/P Metastatic breast ca Extensive osseous mets Hypercalcemia--- s/p zometa 05/20/19 Malnutrition Nausea and emesis MRI brain --- osseous mets involving the skull with pachymeningeal thickening at the site of osseous mets. No intraaxial mets/vasogenic edema For LP on 05/24--csf glucose/protein/cytology/cell count
[2019-05-23] MEDS: MELATONIN 5 MG TABLETS PO PRN (21:04)
[2019-05-24] MEDS: HYDROmorphone HCL 2 MG TABLET PO PRN ×2 (06:16→21:59)
[2019-05-24] MEDS: SUCRALFATE 1 GM/10 ML UNIT DOSE CUPS PO SCH ×4 (06:17→21:59)
[2019-05-24 08:15] LABS: ALBUMIN 2.7 g/dl (3.4-5.0); BILIRUBIN,TOTAL 0.6 mg/dL (0.2-1); BLOOD UREA NITROGEN 20.4 mg/dL (7-18); CALCIUM 9.3 mg/dL (8.5-10.1); CREATININE 0.8 mg/dL (0.55-1.3); MAGNESIUM 1.8 mg/dL (1.8-2.4); PHOSPHOROUS 3.6 mg/dL (2.5-4.9); POTASSIUM 4.4 mmol/L (3.5-5.1); TOT PROT 5.8 g/dl (6.4-8.2)
[2019-05-24] MEDS: ENOXAPARIN NA (PORCINE) 30 MG/0.3 ML DISP.SYRIN SQ SCH (09:06)
[2019-05-24] MEDS: amLODIPine BESYLATE 2.5 MG TABLET (FP) PO SCH (09:15)
[2019-05-24] MEDS: metoPROLOL SUCCINATE 25 MG TAB.SR.24H (FP) PO SCH (09:15)
--- NOTE | 2019-05-24 09:23 | PN ---
Progress Note (short form) - Note Progress Note: 69 year old female with pmhx of metatstatic breast cancer with osseous mets with decreased po intake, fatigue, NV --found to have hypercalcemia. GRAY in past for possible leptomeingeal mets ( 11/05, had L numb chin Sx and DEVRIES at that time / ( LP x 2--negative cytology) though called to eval for possible leptomingeal disease as cause for this presentation. + NV continues , pain in then left knee ( s/p surgery for osseus mets) ; numbness in maxiallry area continues, no DEVRIES. MRI BRAIN 05/19/19 Impression. Pathological bone marrow replacement, osseous metastases involving the right posterior temporal temporal bone, occipital bone, to the lesser degree right frontal calvarium toward the vertex. Irregular inner table of the calvarium with pachymeningeal enhancement is noted at the site of the osseous metastases. No evidence of vasogenic edema. No evidence of intra-axial enhancing lesion There is no evidence of abnormal restricted diffusion in the brain to suggest acute or subacute infarction. FU : Lp for today no new complaints - Past Medical History Cardio/Vascular: Yes: HTN Gastrointestinal: Yes: GERD Psych: Yes: Anxiety - Past Surgical History Past Surgical History: Yes: Cholecystectomy, Hysterectomy - Alcohol/Substance Use Hx Alcohol Use: No History of Substance Use: reports: None - Smoking History Smoking history: Never smoked Have you smoked in the past 12 months: No - Social History Usual Living Arrangement: With Child ADL: Independent History of Recent Travel: No Home Medications - Allergies Allergies/Adverse Reactions: Allergies Allergy/AdvReac Type Severity Reaction Status Date / Time No Known Drug Allergies Allergy Verified 10/01/18 23:17 - Home Medications Home Medications: Ambulatory Orders Alprazolam [Xanax] 1 mg PO HS 05/30/17 Gabapentin 300 mg PO TID 05/30/17 Metoprolol Succinate [Toprol Xl] 25 mg PO DAILY 05/30/17 Tramadol HCl 50 mg PO PRN 05/30/17 Decadron 4 mg PO ASDIR 12/06/18 Ms Contin - 30 mg PO Q8H 12/06/18 Physical Exam-Neuro Vital Signs: Vital Signs Temperature 98.5 F 05/24/19 06:00 Pulse Rate 90 05/24/19 06:00 Respiratory Rate 20 05/24/19 06:00 Blood Pressure 144/75 05/24/19 06:00 O2 Sat by Pulse Oximetry (%) 96 05/23/19 21:00 Labs: CBC, BMP CBCD WBC 4.1 K/mm3 (4.0-10.0) 05/21/19 06:00 RBC 3.14 M/mm3 (3.60-5.2) L 05/21/19 06:00 Hgb 8.9 GM/dL (10.7-15.3) L 05/21/19 06:00 Hct 25.8 % (32.4-45.2) L 05/21/19 06:00 MCV 82.1 fl (80-96) 05/21/19 06:00 MCHC 34.5 g/dl (32.0-36.0) 05/21/19 06:00 RDW 18.2 % (11.6-15.6) H 05/21/19 06:00 Plt Count 239 K/MM3 (134-434) 05/21/19 06:00 MPV 7.4 fl (7.5-11.1) L 05/21/19 06:00 CMP Sodium 130 mmol/L (136-145) L 05/22/19 05:00 Potassium 4.3 mmol/L (3.5-5.1) 05/22/19 05:00 Chloride 97 mmol/L (98-107) L 05/22/19 05:00 Carbon Dioxide 24 mmol/L (21-32) 05/22/19 05:00 Anion Gap 8 MMOL/L (8-16) 05/22/19 05:00 BUN 20.2 mg/dL (7-18) H 05/22/19 05:00 Creatinine 0.7 mg/dL (0.55-1.3) 05/22/19 05:00 Calcium 9.7 mg/dL (8.5-10.1) 05/22/19 05:00 Total Bilirubin 0.7 mg/dL (0.2-1) 05/21/19 06:00 AST 96 U/L (15-37) H 05/21/19 06:00 ALT 42 U/L (13-61) 05/21/19 06:00 Alkaline Phosphatase 322 U/L (45-117) H 05/21/19 06:00 Total Protein 5.2 g/dl (6.4-8.2) L 05/21/19 06:00 Albumin 2.7 g/dl (3.4-5.0) L 05/21/19 06:00 05/21/19 06:00 05/21/19 06:00 - Neuro Exam Level Of Consciousness: Yes: Alert (awake, alert, EOMI, no facial, dec PP left maxillary area, no focal weakness in UE ( effort limited), pain limited movements in LLE, RLE distally 5/5, giat not tested ) Imaging - Results MRI: Report Reviewed, Image Reviewed Problem List - Problems (1) Breast cancer, left breast Code(s): C50.912 - MALIGNANT NEOPLASM OF UNSPECIFIED SITE OF LEFT FEMALE BREAST Qualifiers: Breast location: lower inner quadrant of breast Patient sex: female (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 GRAY in past for possible leptomeingeal mets ( 11/05, had L numb chin Sx and DEVRIES at that time / ( LP x 2--negative cytology) though called to eval for possible leptomingeal disease as cause for this presentation. + NV continues , pain in then left knee ( s/p surgery for osseus mets) ; numbness in maxiallry area continues, no DEVRIES. MRI BRAIN 05/19/19 Impression. Pathological bone marrow replacement, osseous metastases involving the right posterior temporal temporal bone, occipital bone, to the lesser degree right frontal calvarium toward the vertex. Irregular inner table of the calvarium with pachymeningeal enhancement is noted at the site of the osseous metastases. No evidence of vasogenic edema. No evidence of intra-axial enhancing lesion There is no evidence of abnormal restricted diffusion in the brain to suggest acute or subacute infarction. 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
[2019-05-24] MEDS ORDERED: MORPHINE SULFATE 2 MG/ML VIAL IVPUSH ONE (09:45)
[2019-05-24] MEDS ORDERED: LORazepam 2 MG/ML SDV VIAL IVPUSH ONE (10:30)
[2019-05-24 13:09] LABS: BF GLUCOSE (CSF ONLY) 57 mg/dL (40-70)
[2019-05-24 14:07] LABS: CSF COLOR COLORLESS
[2019-05-24 14:08] LABS: CSF APPEARANCE CLEAR; CSF WBC 5
--- NOTE | 2019-05-24 16:35 | PN ---
Progress Note (short form) - Note Progress Note: Radiation Oncology RT to bilateral ribs resumed today. 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 s/p LP Neurology follow up. Pain mgt. Follow up cytology. Cont RT, 4 fx remaining.
[2019-05-24] MEDS: MAGNESIUM CL 64 MG TABLET.SA PO SCH (16:38)
[2019-05-24] MEDS: PANTOPRAZOLE 40 MG TABLET PO SCH ×2 (16:38→21:59)
[2019-05-24] MEDS: POTASSIUM CHLORIDE 40 MEQ in AMINO ACIDS 4.25%/D5W 1,000 ML IVPB SCH (17:57)
--- NOTE | 2019-05-24 18:57 | PN ---
Progress Note, Physician History of Present Illness: Pt seen and examined at bedside. Her PO intake is improved. - Current Medication List Current Medications: Active Medications Amlodipine Besylate (Norvasc -) 2.5 mg PO DAILY [facility] Last Admin: 05/24/19 09:15 Dose: 2.5 mg Enoxaparin Sodium (Lovenox -) 30 mg SQ DAILY [facility] Last Admin: 05/24/19 09:06 Dose: Not Given Hydromorphone HCl (Dilaudid -) 2 mg PO Q4H PRN PRN Reason: PAIN LEVEL 7 - 10 Last Admin: 05/24/19 06:16 Dose: 2 mg IV Flush (Johann-Cath Flush) 10 ml IVPUSH PRN PRN PRN Reason: protocol Potassium Chloride 40 meq/ (Amino Acids) 1,020 mls @ 60 mls/hr IVPB Q17H [facility] Last Admin: 05/24/19 17:57 Dose: 60 mls/hr Magnesium Chloride (Slow-Mag -) 64 mg PO DAILY [facility] Last Admin: 05/24/19 16:38 Dose: Not Given Melatonin (Melatonin) 5 mg PO HS PRN PRN Reason: INSOMNIA Last Admin: 05/23/19 21:04 Dose: 5 mg Metoprolol Succinate (Toprol Xl -) 25 mg PO DAILY [facility] Last Admin: 05/24/19 09:15 Dose: 25 mg Ondansetron HCl (Zofran Injection) 8 mg IVPB Q8H PRN PRN Reason: NAUSEA Last Admin: 05/22/19 17:02 Dose: 8 mg Pantoprazole Sodium (Protonix -) 40 mg PO BID [facility] Last Admin: 05/24/19 16:38 Dose: Not Given Sucralfate (Carafate Oral Suspension -) 1 gm PO ACHS [facility] Last Admin: 05/24/19 17:58 Dose: 1 gm - Objective Vital Signs: Vital Signs Temperature 98.4 F 05/24/19 18:45 Pulse Rate 92 H 05/24/19 18:45 Respiratory Rate 18 05/24/19 18:45 Blood Pressure 130/65 05/24/19 18:45 O2 Sat by Pulse Oximetry (%) 97 05/24/19 09:00 Constitutional: Yes: Calm Eyes: Yes: Conjunctiva Clear HENT: Yes: Atraumatic Neck: Yes: Supple Cardiovascular: Yes: S1, S2 Respiratory: Yes: CTA Bilaterally Gastrointestinal: Yes: Soft Genitourinary: Yes: WNL Musculoskeletal: Yes: WNL Edema: No Neurological: Yes: Oriented Psychiatric: Yes: Oriented Labs: CBC, BMP 05/21/19 06:00 05/24/19 06:30 INR, PTT INR 1.13 (0.83-1.09) H 05/22/19 14:14 Problem List - Problems (1) Abnormal liver function tests Code(s): R94.5 - ABNORMAL RESULTS OF LIVER FUNCTION STUDIES (2) Breast cancer, left breast Code(s): C50.912 - MALIGNANT NEOPLASM OF UNSPECIFIED SITE OF LEFT FEMALE BREAST Qualifiers: Breast location: lower inner quadrant of breast Patient sex: female Assessment/Plan Current Medications Generic Name Dose Route Start Last Admin Trade Name Freq PRN Reason Stop Dose Admin Amlodipine Besylate 2.5 mg 05/20/19 21:00 05/24/19 09:15 Norvasc - PO 2.5 mg DAILY [facility] Administration Enoxaparin Sodium 30 mg 05/18/19 20:30 05/24/19 09:06 Lovenox - SQ Not Given DAILY [facility] Hydromorphone HCl 2 mg 05/22/19 12:17 05/24/19 06:16 Dilaudid - PO 2 mg Q4H PRN Administration PAIN LEVEL 7 - 10 IV Flush 10 ml 05/20/19 16:01 Johann-Cath Flush IVPUSH PRN PRN protocol Potassium Chloride 40 meq/ 1,020 mls @ 60 mls/hr 05/23/19 17:55 05/24/19 17: 57 Amino Acids IVPB 60 mls/hr Q17H [facility] Administration Magnesium Chloride 64 mg 05/22/19 11:15 05/24/19 16:38 Slow-Mag - PO Not Given DAILY [facility] Melatonin 5 mg 05/19/19 23:13 05/23/19 21:04 Melatonin PO 5 mg HS PRN Administration INSOMNIA Metoprolol Succinate 25 mg 05/18/19 20:30 05/24/19 09:15 Toprol Xl - PO 25 mg DAILY [facility] Administration Ondansetron HCl 8 mg 05/18/19 20:20 05/22/19 17:02 Zofran Injection IVPB 8 mg Q8H PRN Administration NAUSEA Pantoprazole Sodium 40 mg 05/18/19 22:00 05/24/19 16:38 Protonix - PO Not Given BID [facility] Sucralfate 1 gm 05/18/19 22:00 05/24/19 17:58 Carafate Oral Suspension - PO 1 gm ACHS [facility] Administration Impression 1. hyponatremia 2. htn 3. pancytopenia 4. breast cancer 5. hypokalemia 6. hypercalcemia Plan - cont with clinimix - po intake improved today - no need for tpn at this point - cont ensure and supplements - nutrition follow up - monitor calcium levels
--- NOTE | 2019-05-24 19:14 | PN ---
Progress Note (short form) - Note Progress Note: Patient seen and examined S/P LP for cytology, protein, glucose , culture Ongoing RT to ribs Complains of neck pains , pain radiating down right arm Last Vital Signs Temp Pulse Resp BP Pulse Ox 98.4 F 92 H 18 130/65 97 05/24/19 18:45 05/24/19 18:45 05/24/19 18:45 05/24/19 18:45 05/24/19 09:00 HEENT: GLADYS, EOM Intact Oropharynx: No thrush, No mucositis Cor: RSR, No murmurs, No gallops Lungs: Clear to P&A Abd: Soft, Normal bowel sounds, No organomegaly Ext:No significant edema Skin: No rashes, Integument intact CBC, BMP 05/21/19 06:00 05/24/19 06:30 Current Medications Generic Name Dose Route Start Last Admin Trade Name Freq PRN Reason Stop Dose Admin Amlodipine Besylate 2.5 mg 05/20/19 21:00 05/24/19 09:15 Norvasc - PO 2.5 mg DAILY [facility] Administration Enoxaparin Sodium 30 mg 05/18/19 20:30 05/24/19 09:06 Lovenox - SQ Not Given DAILY [facility] Hydromorphone HCl 2 mg 05/22/19 12:17 05/24/19 06:16 Dilaudid - PO 2 mg Q4H PRN Administration PAIN LEVEL 7 - 10 IV Flush 10 ml 05/20/19 16:01 Johann-Cath Flush IVPUSH PRN PRN protocol Potassium Chloride 40 meq/ 1,020 mls @ 60 mls/hr 05/23/19 17:55 05/24/19 17: 57 Amino Acids IVPB 60 mls/hr Q17H [facility] Administration Magnesium Chloride 64 mg 05/22/19 11:15 05/24/19 16:38 Slow-Mag - PO Not Given DAILY [facility] Melatonin 5 mg 05/19/19 23:13 05/23/19 21:04 Melatonin PO 5 mg HS PRN Administration INSOMNIA Metoprolol Succinate 25 mg 05/18/19 20:30 05/24/19 09:15 Toprol Xl - PO 25 mg DAILY [facility] Administration Ondansetron HCl 8 mg 05/18/19 20:20 02/02/20 17:02 Zofran Injection IVPB 8 mg Q8H PRN Administration NAUSEA Pantoprazole Sodium 40 mg 05/18/19 22:00 05/24/19 16:38 Protonix - PO Not Given BID [facility] Sucralfate 1 gm 05/18/19 22:00 05/24/19 17:58 Carafate Oral Suspension - PO 1 gm ACHS [facility] Administration Impression: Metastatic breast ca ??leptomeningeal invlvement Pain management Anemia malnutrition Plan: Continue RT Await results of LP
[2019-05-24] MEDS ORDERED: PT OWN MED DRAWER 7, Y5N ONE (19:20)
[2019-05-24] MEDS: MELATONIN 5 MG TABLETS PO PRN (22:00)
[2019-05-25] MEDS: POTASSIUM CHLORIDE 40 MEQ in AMINO ACIDS 4.25%/D5W 1,000 ML IVPB SCH ×3 (05:07→21:16)
[2019-05-25] MEDS: SUCRALFATE 1 GM/10 ML UNIT DOSE CUPS PO SCH ×4 (06:02→22:46)
[2019-05-25] MEDS: amLODIPine BESYLATE 2.5 MG TABLET (FP) PO SCH (09:26)
[2019-05-25] MEDS: metoPROLOL SUCCINATE 25 MG TAB.SR.24H (FP) PO SCH (09:26)
[2019-05-25] MEDS: PANTOPRAZOLE 40 MG TABLET PO SCH ×2 (09:26→22:46)
[2019-05-25] MEDS: MAGNESIUM CL 64 MG TABLET.SA PO SCH (09:27)
[2019-05-25] MEDS: HYDROmorphone HCL 2 MG TABLET PO PRN ×2 (10:19→19:02)
--- NOTE | 2019-05-25 10:43 | PN ---
Progress Note, [facility] - Note Progress Note: Selected Entries 05/22/19 05/22/19 05/22/19 09:14 10:51 15:08 Breakfast 25% Lunch 25% Supper Temperature 98.8 F 99.2 F Temperature [ Prior to transport] 05/22/19 05/22/19 05/23/19 19:00 22:00 06:21 Breakfast Lunch Supper 25% Temperature 99.2 F 99.0 F 99 F Temperature [ Prior to transport] 05/23/19 05/23/19 05/23/19 08:15 14:34 17:26 Breakfast Lunch 50% Supper Temperature 98.7 F 98.7 F 99.1 F Temperature [ Prior to transport] 05/23/19 05/24/19 05/24/19 21:02 00:30 06:00 Breakfast Lunch Supper Temperature 98.8 F 98.1 F 98.5 F Temperature [ Prior to transport] 05/24/19 05/24/19 05/24/19 09:28 10:22 12:46 Breakfast 25% Lunch Supper Temperature 98.4 F 98.1 F Temperature [ Prior to transport] 05/24/19 05/24/19 05/24/19 14:23 15:41 18:45 Breakfast Lunch 25% Supper Temperature 98.4 F Temperature [ 98.0 F Prior to transport] 05/24/19 05/25/19 05/25/19 22:00 06:32 09:03 Breakfast Lunch Supper Temperature 98.6 F 98.9 F 98.2 F Temperature [ Prior to transport] 05/25/19 05/25/19 09:23 10:00 Breakfast 25% Lunch Supper Temperature Temperature [ 98.2 F Prior to transport] Poor appetite. Consider appetite stimulant. No further f/u indicated.
[2019-05-25] MEDS: ALPRAZolam 1 MG TABLET PO PRN ×2 (12:56→22:46)
[2019-05-25] MEDS: PORTA CATH FLUSH 10 ML IVPUSH PRN (13:38)
--- NOTE | 2019-05-25 13:53 | EKG ---
Test Reason : Blood Pressure : / mmHG Vent. Rate : 105 BPM Atrial Rate : 105 BPM P-R Int : 130 ms QRS Dur : 082 ms QT Int : 334 ms P-R-T Axes : 035 006 041 degrees QTc Int : 441 ms SINUS TACHYCARDIA WITH PREMATURE ATRIAL COMPLEXES OTHERWISE NORMAL ECG WHEN COMPARED WITH ECG OF 01-OCT-2018 23:52, PREMATURE ATRIAL COMPLEXES ARE NOW PRESENT T WAVE INVERSION NO LONGER EVIDENT IN LATERAL LEADS Confirmed by Kris Mast ([id number]) on 05/25/2019 1:53:11 PM Referred By: CARLA JAQUEZ Confirmed By:Kris Mast
--- NOTE | 2019-05-25 13:58 | PN ---
Progress Note, Physician History of Present Illness: Pt seen and examined at bedside. She appears comfortable. She does not have much appetite today. - Current Medication List Current Medications: Active Medications Alprazolam (Xanax) 0.25 mg PO Q12H PRN PRN Reason: ANXIETY Last Admin: 05/25/19 12:56 Dose: 0.25 mg Amlodipine Besylate (Norvasc -) 2.5 mg PO DAILY [facility] Last Admin: 05/25/19 09:26 Dose: 2.5 mg Hydromorphone HCl (Dilaudid -) 2 mg PO Q4H PRN PRN Reason: PAIN LEVEL 7 - 10 Last Admin: 05/25/19 10:19 Dose: 2 mg IV Flush (Johann-Cath Flush) 10 ml IVPUSH PRN PRN PRN Reason: protocol Last Admin: 05/25/19 13:38 Dose: 10 ml Potassium Chloride 40 meq/ (Amino Acids) 1,020 mls @ 60 mls/hr IVPB Q17H [facility] Last Admin: 05/25/19 13:37 Dose: 60 mls/hr Magnesium Chloride (Slow-Mag -) 64 mg PO DAILY [facility] Last Admin: 05/25/19 09:27 Dose: 64 mg Melatonin (Melatonin) 5 mg PO HS PRN PRN Reason: INSOMNIA Last Admin: 05/24/19 22:00 Dose: 5 mg Metoprolol Succinate (Toprol Xl -) 25 mg PO DAILY [facility] Last Admin: 05/25/19 09:26 Dose: 25 mg Ondansetron HCl (Zofran Injection) 8 mg IVPB Q8H PRN PRN Reason: NAUSEA Last Admin: 05/22/19 17:02 Dose: 8 mg Pantoprazole Sodium (Protonix -) 40 mg PO BID [facility] Last Admin: 05/25/19 09:26 Dose: 40 mg Sucralfate (Carafate Oral Suspension -) 1 gm PO ACHS [facility] Last Admin: 05/25/19 12:59 Dose: Not Given - Objective Vital Signs: Vital Signs Temperature 98.3 F 05/25/19 11:30 Pulse Rate 140 H 05/25/19 11:30 Respiratory Rate 20 05/25/19 11:30 Blood Pressure 157/94 05/25/19 11:30 O2 Sat by Pulse Oximetry (%) 97 02/04/20 21:00 Constitutional: Yes: Calm Eyes: Yes: Conjunctiva Clear HENT: Yes: Atraumatic Neck: Yes: Supple Cardiovascular: Yes: S1, S2 Respiratory: Yes: CTA Bilaterally Gastrointestinal: Yes: Soft Genitourinary: Yes: WNL Edema: No Integumentary: Yes: WNL Neurological: Yes: Oriented Psychiatric: Yes: Oriented Labs: CBC, BMP 05/21/19 06:00 05/24/19 06:30 INR, PTT INR 1.13 (0.83-1.09) H 05/22/19 14:14 Problem List - Problems (1) Abnormal liver function tests Code(s): R94.5 - ABNORMAL RESULTS OF LIVER FUNCTION STUDIES (2) Breast cancer, left breast Code(s): C50.912 - MALIGNANT NEOPLASM OF UNSPECIFIED SITE OF LEFT FEMALE BREAST Qualifiers: Breast location: lower inner quadrant of breast Patient sex: female Assessment/Plan Current Medications Generic Name Dose Route Start Last Admin Trade Name Freq PRN Reason Stop Dose Admin Alprazolam 0.25 mg 05/25/19 12:46 05/25/19 12:56 Xanax PO 0.25 mg Q12H PRN Administration ANXIETY Amlodipine Besylate 2.5 mg 05/20/19 21:00 05/25/19 09:26 Norvasc - PO 2.5 mg DAILY [facility] Administration Hydromorphone HCl 2 mg 05/22/19 12:17 05/25/19 10:19 Dilaudid - PO 2 mg Q4H PRN Administration PAIN LEVEL 7 - 10 IV Flush 10 ml 05/20/19 16:01 05/25/19 13:38 Johann-Cath Flush IVPUSH 10 ml PRN PRN Administration protocol Potassium Chloride 40 meq/ 1,020 mls @ 60 mls/hr 05/23/19 17:55 05/25/19 13: 37 Amino Acids IVPB 60 mls/hr Q17H [facility] Administration Magnesium Chloride 64 mg 05/22/19 11:15 05/25/19 09:27 Slow-Mag - PO 64 mg DAILY [facility] Administration Melatonin 5 mg 05/19/19 23:13 05/24/19 22:00 Melatonin PO 5 mg HS PRN Administration INSOMNIA Metoprolol Succinate 25 mg 05/18/19 20:30 05/25/19 09:26 Toprol Xl - PO 25 mg DAILY [facility] Administration Ondansetron HCl 8 mg 05/18/19 20:20 05/22/19 17:02 Zofran Injection IVPB 8 mg Q8H PRN Administration NAUSEA Pantoprazole Sodium 40 mg 05/18/19 22:00 05/25/19 09:26 Protonix - PO 40 mg BID [facility] Administration Sucralfate 1 gm 05/18/19 22:00 05/25/19 12:59 Carafate Oral Suspension - PO Not Given ACHS [facility] Impression 1. hyponatremia 2. htn 3. pancytopenia 4. breast cancer 5. hypokalemia 6. hypercalcemia 7. malnutrition Plan - check cmp in am - pt on intermittent clinimix - cont ensure - encourage po intake - nutrition follow up - monitor calcium levels
--- NOTE | 2019-05-25 14:59 | PN ---
Progress Note (short form) - Note Progress Note: Patient seen and examined Remains anorechtic with littl p.o. intake Will add marinol. Remains on cliniix . ?? add lipids. Preliminary LP with 5 WBC,18 RBC, Normal glucose and protein elevated at 55. Cytology pending Last Vital Signs Temp Pulse Resp BP Pulse Ox 98 F 99 H 20 135/71 96 05/25/19 14:22 05/25/19 14:22 05/25/19 14:22 05/25/19 14:22 05/25/19 09:00 HEENT: GLADYS, EOM Intact Oropharynx: No thrush, No mucositis Cor: RSR, No murmurs, No gallops Lungs: Clear to P&A Abd: Soft, Normal bowel sounds, No organomegaly Ext:LE edema L>R Skin: No rashes, Integument intact CBC, BMP 05/21/19 06:00 05/24/19 06:30 Current Medications Generic Name Dose Route Start Last Admin Trade Name Freq PRN Reason Stop Dose Admin Alprazolam 0.25 mg 05/25/19 12:46 05/25/19 12:56 Xanax PO 0.25 mg Q12H PRN Administration ANXIETY Amlodipine Besylate 2.5 mg 05/20/19 21:00 05/25/19 09:26 Norvasc - PO 2.5 mg DAILY [facility] Administration Hydromorphone HCl 2 mg 05/22/19 12:17 05/25/19 10:19 Dilaudid - PO 2 mg Q4H PRN Administration PAIN LEVEL 7 - 10 IV Flush 10 ml 05/20/19 16:01 05/25/19 13:38 Johann-Cath Flush IVPUSH 10 ml PRN PRN Administration protocol Potassium Chloride 40 meq/ 1,020 mls @ 60 mls/hr 05/23/19 17:55 05/25/19 13: 37 Amino Acids IVPB 60 mls/hr Q17H [facility] Administration Magnesium Chloride 64 mg 05/22/19 11:15 05/25/19 09:27 Slow-Mag - PO 64 mg DAILY [facility] Administration Melatonin 5 mg 05/19/19 23:13 05/24/19 22:00 Melatonin PO 5 mg HS PRN Administration INSOMNIA Metoprolol Succinate 25 mg 05/18/19 20:30 05/25/19 09:26 Toprol Xl - PO 25 mg DAILY [facility] Administration Ondansetron HCl 8 mg 05/18/19 20:20 05/22/19 17:02 Zofran Injection IVPB 8 mg Q8H PRN Administration NAUSEA Pantoprazole Sodium 40 mg 05/18/19 22:00 05/25/19 09:26 Protonix - PO 40 mg BID [facility] Administration Sucralfate 1 gm 05/18/19 22:00 05/25/19 12:59 Carafate Oral Suspension - PO Not Given ACHS [facility] Impression: Metastatic breast ca 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 dysphagia- seen by Speech therapy- no further work up suggested, but will do esophagram,barium swallow
[2019-05-25] MEDS: DRONABINOL 5 MG CAPSULE PO SCH (16:57)
[2019-05-25] MEDS ORDERED: DRONABINOL 5 MG CAPSULE PO SCH (22:00)
[2019-05-25] MEDS: MELATONIN 5 MG TABLETS PO PRN (22:46)
[2019-05-26] MEDS: HYDROmorphone HCL 2 MG TABLET PO PRN ×4 (00:49→21:41)
[2019-05-26] MEDS: POTASSIUM CHLORIDE 40 MEQ in AMINO ACIDS 4.25%/D5W 1,000 ML IVPB SCH ×2 (06:09→15:51)
[2019-05-26 07:29] LABS: BASO % 0.9 % (0-2.0); EOS % 2.6 % (0-4.5); HEMATOCRIT 23.3 % (32.4-45.2); HEMOGLOBIN 8.1 GM/dL (10.7-15.3); LYMPH % 20.8 % (8-40); MCH 28.5 pg (25.7-33.7); MCHC 34.6 g/dl (32.0-36.0); MEAN CELL VOLUME 82.2 fl (80-96); MEAN PLT VOLUME 7.3 fl (7.5-11.1); MONO % 12.3 % (3.8-10.2); NEUT % 63.4 % (42.8-82.8); PLATELET COUNT 164 K/MM3 (134-434); RBC 2.84 M/mm3 (3.60-5.2); RDW 18.2 % (11.6-15.6); WHITE BLOOD COUNT 4.8 K/mm3 (4.0-10.0)
[2019-05-26] MEDS: SUCRALFATE 1 GM/10 ML UNIT DOSE CUPS PO SCH ×4 (08:01→21:37)
[2019-05-26 09:21] LABS: ANISOCYTOSIS 1+; MACROCYTOSIS 0; OVALOCYTE 1+; PLATELET ESTIMATE NORMAL; TEAR DROP CELLS 1+
--- NOTE | 2019-05-26 11:11 | PN ---
Progress Note, [facility] - Note Progress Note: 69 yo female seen on unit. Current diet: regular solids with thin liquids. Pt seen by [facility] 05/25/2019 and was d/c'd for follow up. MBS ordered this a.m. Pt presents as A&Ox3 verbal and cooperative. Oral motor and vocal characteristics are WFL. PCP ordered MBS and esophagram to r/o bolus status as reported by patient.
[2019-05-26] MEDS: metoPROLOL SUCCINATE 25 MG TAB.SR.24H (FP) PO SCH (11:29)
[2019-05-26] MEDS: amLODIPine BESYLATE 2.5 MG TABLET (FP) PO SCH (11:29)
[2019-05-26] MEDS: PANTOPRAZOLE 40 MG TABLET PO SCH ×2 (11:30→21:41)
[2019-05-26] MEDS ORDERED: PT OWN MED DRAWER 7, Y5N ONE (13:00)
[2019-05-26] MEDS: DRONABINOL 5 MG CAPSULE PO SCH ×2 (13:04→17:40)
[2019-05-26] MEDS: MAGNESIUM CL 64 MG TABLET.SA PO SCH (13:05)
[2019-05-26 14:23] LABS: ALBUMIN 2.8 g/dl (3.4-5.0); BILIRUBIN,TOTAL 0.5 mg/dL (0.2-1); BLOOD UREA NITROGEN 22.4 mg/dL (7-18); CALCIUM 9.4 mg/dL (8.5-10.1); CREATININE 0.9 mg/dL (0.55-1.3); MAGNESIUM 1.6 mg/dL (1.8-2.4); PHOSPHOROUS 4.3 mg/dL (2.5-4.9); POTASSIUM 4.1 mmol/L (3.5-5.1); TOT PROT 6.1 g/dl (6.4-8.2)
[2019-05-26] MEDS ORDERED: MAGNESIUM SULF 50% (8.12 MEQ/2 ML-1 GM VIAL) IVPB ONE (16:17)
--- NOTE | 2019-05-26 16:20 | PN ---
Progress Note, Physician History of Present Illness: Pt seen and examined at bedside. She is awake and alert. PO intake remains poor. - Current Medication List Current Medications: Active Medications Alprazolam (Xanax) 0.25 mg PO Q12H PRN PRN Reason: ANXIETY Last Admin: 05/25/19 12:56 Dose: 0.25 mg Alprazolam (Xanax) 1 mg PO HS PRN PRN Reason: ANXIETY Last Admin: 05/25/19 22:46 Dose: 1 mg Amlodipine Besylate (Norvasc -) 2.5 mg PO DAILY [facility] Last Admin: 05/26/19 11:29 Dose: 2.5 mg Dronabinol (Marinol -) 5 mg PO BID@1130,1700 [facility] Last Admin: 05/26/19 13:04 Dose: 5 mg Fat Emulsion Intravenous (Intralipid -) 250 ml IV DAILY@2200 [facility] Hydromorphone HCl (Dilaudid -) 2 mg PO Q4H PRN PRN Reason: PAIN LEVEL 7 - 10 Last Admin: 05/26/19 11:28 Dose: 2 mg IV Flush (Johann-Cath Flush) 10 ml IVPUSH PRN PRN PRN Reason: protocol Last Admin: 05/25/19 13:38 Dose: 10 ml Potassium Chloride 40 meq/ (Amino Acids) 1,020 mls @ 60 mls/hr IVPB Q17H [facility] Last Admin: 05/26/19 15:51 Dose: Not Given Magnesium Chloride (Slow-Mag -) 64 mg PO DAILY [facility] Last Admin: 05/26/19 13:05 Dose: 64 mg Melatonin (Melatonin) 5 mg PO HS PRN PRN Reason: INSOMNIA Last Admin: 05/25/19 22:46 Dose: 5 mg Metoprolol Succinate (Toprol Xl -) 25 mg PO DAILY [facility] Last Admin: 05/26/19 11:29 Dose: 25 mg Ondansetron HCl (Zofran Injection) 8 mg IVPB Q8H PRN PRN Reason: NAUSEA Last Admin: 05/22/19 17:02 Dose: 8 mg Pantoprazole Sodium (Protonix -) 40 mg PO BID [facility] Last Admin: 05/26/19 11:30 Dose: 40 mg Sucralfate (Carafate Oral Suspension -) 1 gm PO ACHS [facility] Last Admin: 05/26/19 11:29 Dose: Not Given - Objective Vital Signs: Vital Signs Temperature 98 F 05/26/19 14:31 Pulse Rate 109 H 05/26/19 14:31 Respiratory Rate 20 05/26/19 14:31 Blood Pressure 143/57 L 05/26/19 14:31 O2 Sat by Pulse Oximetry (%) 97 05/26/19 09:00 Constitutional: Yes: Calm Eyes: Yes: Conjunctiva Clear HENT: Yes: Atraumatic Neck: Yes: Supple Cardiovascular: Yes: S1, S2 Respiratory: Yes: CTA Bilaterally Gastrointestinal: Yes: Soft Genitourinary: Yes: WNL Musculoskeletal: Yes: WNL Edema: No Neurological: Yes: Oriented Psychiatric: Yes: Oriented Labs: CBC, BMP 05/26/19 06:00 05/26/19 13:25 INR, PTT INR 1.13 (0.83-1.09) H 05/22/19 14:14 Problem List - Problems (1) Abnormal liver function tests Code(s): R94.5 - ABNORMAL RESULTS OF LIVER FUNCTION STUDIES (2) Breast cancer, left breast Code(s): C50.912 - MALIGNANT NEOPLASM OF UNSPECIFIED SITE OF LEFT FEMALE BREAST Qualifiers: Breast location: lower inner quadrant of breast Patient sex: female Assessment/Plan Current Medications Generic Name Dose Route Start Last Admin Trade Name Freq PRN Reason Stop Dose Admin Alprazolam 0.25 mg 05/25/19 12:46 05/25/19 12:56 Xanax PO 0.25 mg Q12H PRN Administration ANXIETY Alprazolam 1 mg 05/25/19 18:58 05/25/19 22:46 Xanax PO 1 mg HS PRN Administration ANXIETY Amlodipine Besylate 2.5 mg 05/20/19 21:00 05/26/19 11:29 Norvasc - PO 2.5 mg DAILY [facility] Administration Dronabinol 5 mg 05/25/19 17:00 05/26/19 13:04 Marinol - PO 5 mg BID@1130,1700 [facility] Administration Fat Emulsion Intravenous 250 ml 05/26/19 22:00 Intralipid - IV DAILY@2200 [facility] Hydromorphone HCl 2 mg 05/22/19 12:17 05/26/19 11:28 Dilaudid - PO 2 mg Q4H PRN Administration PAIN LEVEL 7 - 10 IV Flush 10 ml 05/20/19 16:01 05/25/19 13:38 Johann-Cath Flush IVPUSH 10 ml PRN PRN Administration protocol Potassium Chloride 40 meq/ 1,020 mls @ 60 mls/hr 05/23/19 17:55 05/26/19 15: 51 Amino Acids IVPB Not Given Q17H [facility] Magnesium Chloride 64 mg 05/22/19 11:15 05/26/19 13:05 Slow-Mag - PO 64 mg DAILY [facility] Administration Melatonin 5 mg 05/19/19 23:13 05/25/19 22:46 Melatonin PO 5 mg HS PRN Administration INSOMNIA Metoprolol Succinate 25 mg 05/18/19 20:30 05/26/19 11:29 Toprol Xl - PO 25 mg DAILY [facility] Administration Ondansetron HCl 8 mg 05/18/19 20:20 05/22/19 17:02 Zofran Injection IVPB 8 mg Q8H PRN Administration NAUSEA Pantoprazole Sodium 40 mg 05/18/19 22:00 05/26/19 11:30 Protonix - PO 40 mg BID [facility] Administration Sucralfate 1 gm 05/18/19 22:00 05/26/19 11:29 Carafate Oral Suspension - PO Not Given ACHS [facility] Impression 1. hyponatremia 2. htn 3. pancytopenia 4. breast cancer 5. hypokalemia 6. hypercalcemia 7. malnutrition Plan - cont amino accids - will give lipids, discussed with nutrition - repeat labs in am - replace mag - nutrition follow up - monitor calcium levels
--- NOTE | 2019-05-26 19:15 | PN ---
Progress Note (short form) - Note Progress Note: Progress Note (short form) - Note Progress Note: Patient seen and examined Remains anorectic. On Marinol Preliminary LP with 5 WBC,18 RBC, Normal glucose and protein elevated at 55. Cytology pending Last Vital Signs Temp Pulse Resp BP Pulse Ox 98.7 F 95 H 18 144/73 97 05/26/19 17:45 05/26/19 17:45 05/26/19 17:45 05/26/19 17:45 05/26/19 09:00 HEENT: GLADYS, EOM Intact Oropharynx: No thrush, No mucositis Cor: RSR, No murmurs, No gallops Lungs: Clear to P&A Abd: Soft, Normal bowel sounds, No organomegaly Ext:LE edema L>R Skin: No rashes, Integument intact 05/26/19 06:00 05/26/19 13:25 Current Medications Alprazolam (Xanax) 0.25 mg PO Q12H PRN PRN Reason: ANXIETY Last Admin: 05/25/19 12:56 Dose: 0.25 mg Alprazolam (Xanax) 1 mg PO HS PRN PRN Reason: ANXIETY Last Admin: 05/25/19 22:46 Dose: 1 mg Amlodipine Besylate (Norvasc -) 2.5 mg PO DAILY [facility] Last Admin: 05/26/19 11:29 Dose: 2.5 mg Dronabinol (Marinol -) 5 mg PO BID@1130,1700 [facility] Last Admin: 05/26/19 17:40 Dose: 5 mg Fat Emulsion Intravenous (Intralipid -) 250 ml IV DAILY@2200 [facility] Hydromorphone HCl (Dilaudid -) 2 mg PO Q4H PRN PRN Reason: PAIN LEVEL 7 - 10 Last Admin: 05/26/19 11:28 Dose: 2 mg IV Flush (Johann-Cath Flush) 10 ml IVPUSH PRN PRN PRN Reason: protocol Last Admin: 05/25/19 13:38 Dose: 10 ml Potassium Chloride 40 meq/ (Amino Acids) 1,020 mls @ 60 mls/hr IVPB Q17H [facility] Last Admin: 05/26/19 15:51 Dose: Not Given Magnesium Chloride (Slow-Mag -) 64 mg PO DAILY [facility] Last Admin: 05/26/19 13:05 Dose: 64 mg Melatonin (Melatonin) 5 mg PO HS PRN PRN Reason: INSOMNIA Last Admin: 05/25/19 22:46 Dose: 5 mg Metoprolol Succinate (Toprol Xl -) 25 mg PO DAILY [facility] Last Admin: 05/26/19 11:29 Dose: 25 mg Ondansetron HCl (Zofran Injection) 8 mg IVPB Q8H PRN PRN Reason: NAUSEA Last Admin: 05/22/19 17:02 Dose: 8 mg Pantoprazole Sodium (Protonix -) 40 mg PO BID [facility] Last Admin: 05/26/19 11:30 Dose: 40 mg Sucralfate (Carafate Oral Suspension -) 1 gm PO ACHS [facility] Last Admin: 05/26/19 18:02 Dose: Not Given Impression: Poor po intake. 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 dysphagia- seen by Speech therapy- no further work up suggested, but will do esophagram,barium swallow
[2019-05-26] MEDS: FAT EMULSIONS 20% 250 ML PREMIX INFUS.BAG IV SCH (21:39)
[2019-05-26] MEDS: ALPRAZolam 1 MG TABLET PO PRN (21:41)
[2019-05-26] MEDS: MELATONIN 5 MG TABLETS PO PRN (21:41)
[2019-05-27] MEDS: HYDROmorphone HCL 2 MG TABLET PO PRN ×4 (01:14→21:33)
[2019-05-27] MEDS: POTASSIUM CHLORIDE 40 MEQ in AMINO ACIDS 4.25%/D5W 1,000 ML IVPB SCH ×4 (05:23→23:55)
[2019-05-27] MEDS: SUCRALFATE 1 GM/10 ML UNIT DOSE CUPS PO SCH ×4 (06:55→21:32)
[2019-05-27] MEDS: amLODIPine BESYLATE 2.5 MG TABLET (FP) PO SCH (09:09)
[2019-05-27] MEDS: metoPROLOL SUCCINATE 25 MG TAB.SR.24H (FP) PO SCH (09:09)
[2019-05-27] MEDS: PANTOPRAZOLE 40 MG TABLET PO SCH ×2 (09:09→21:34)
[2019-05-27] MEDS: MAGNESIUM CL 64 MG TABLET.SA PO SCH (09:09)
[2019-05-27] MEDS: DRONABINOL 5 MG CAPSULE PO SCH ×2 (12:15→16:29)
--- NOTE | 2019-05-27 19:16 | PN ---
Progress Note, Physician History of Present Illness: Pt seen and examined at bedside. She is awake and appears comfortable. She is not tolerating diet. - Current Medication List Current Medications: Active Medications Alprazolam (Xanax) 0.25 mg PO Q12H PRN PRN Reason: ANXIETY Last Admin: 05/25/19 12:56 Dose: 0.25 mg Alprazolam (Xanax) 1 mg PO HS PRN PRN Reason: ANXIETY Last Admin: 05/26/19 21:41 Dose: 1 mg Amlodipine Besylate (Norvasc -) 2.5 mg PO DAILY [facility] Last Admin: 05/27/19 09:09 Dose: 2.5 mg Dronabinol (Marinol -) 5 mg PO BID@1130,1700 [facility] Last Admin: 05/27/19 16:29 Dose: 5 mg Fat Emulsion Intravenous (Intralipid -) 250 ml IV DAILY@2200 [facility] Last Admin: 05/26/19 21:39 Dose: 250 ml Hydromorphone HCl (Dilaudid -) 2 mg PO Q4H PRN PRN Reason: PAIN LEVEL 7 - 10 Last Admin: 05/27/19 10:34 Dose: 2 mg IV Flush (Johann-Cath Flush) 10 ml IVPUSH PRN PRN PRN Reason: protocol Last Admin: 05/25/19 13:38 Dose: 10 ml Potassium Chloride 40 meq/ (Amino Acids) 1,020 mls @ 60 mls/hr IVPB Q17H [facility] Last Admin: 05/27/19 06:55 Dose: Not Given Magnesium Chloride (Slow-Mag -) 64 mg PO DAILY [facility] Last Admin: 05/27/19 09:09 Dose: 64 mg Melatonin (Melatonin) 5 mg PO HS PRN PRN Reason: INSOMNIA Last Admin: 05/25/19 22:46 Dose: 5 mg Metoprolol Succinate (Toprol Xl -) 25 mg PO DAILY [facility] Last Admin: 05/27/19 09:09 Dose: 25 mg Ondansetron HCl (Zofran Injection) 8 mg IVPB Q8H PRN PRN Reason: NAUSEA Last Admin: 05/22/19 17:02 Dose: 8 mg Pantoprazole Sodium (Protonix -) 40 mg PO BID [facility] Last Admin: 05/27/19 09:09 Dose: 40 mg Sucralfate (Carafate Oral Suspension -) 1 gm PO ACHS [facility] Last Admin: 05/27/19 16:29 Dose: Not Given - Objective Vital Signs: Vital Signs Temperature 98.1 F 05/27/19 18:00 Pulse Rate 97 H 05/27/19 18:00 Respiratory Rate 18 05/27/19 18:00 Blood Pressure 141/69 05/27/19 18:00 O2 Sat by Pulse Oximetry (%) 95 05/27/19 09:00 Constitutional: Yes: Calm Eyes: Yes: Conjunctiva Clear HENT: Yes: Atraumatic Neck: Yes: Supple Cardiovascular: Yes: S1, S2 Respiratory: Yes: CTA Bilaterally Gastrointestinal: Yes: Soft Genitourinary: Yes: WNL Musculoskeletal: Yes: WNL Edema: No Neurological: Yes: Oriented Psychiatric: Yes: Oriented Labs: CBC, BMP 05/26/19 06:00 05/26/19 13:25 INR, PTT INR 1.13 (0.83-1.09) H 05/22/19 14:14 Problem List - Problems (1) Abnormal liver function tests Code(s): R94.5 - ABNORMAL RESULTS OF LIVER FUNCTION STUDIES (2) Breast cancer, left breast Code(s): C50.912 - MALIGNANT NEOPLASM OF UNSPECIFIED SITE OF LEFT FEMALE BREAST Qualifiers: Breast location: lower inner quadrant of breast Patient sex: female Assessment/Plan Current Medications Generic Name Dose Route Start Last Admin Trade Name Freq PRN Reason Stop Dose Admin Alprazolam 0.25 mg 05/25/19 12:46 05/25/19 12:56 Xanax PO 0.25 mg Q12H PRN Administration ANXIETY Alprazolam 1 mg 05/25/19 18:58 05/26/19 21:41 Xanax PO 1 mg HS PRN Administration ANXIETY Amlodipine Besylate 2.5 mg 05/20/19 21:00 05/27/19 09:09 Norvasc - PO 2.5 mg DAILY [facility] Administration Dronabinol 5 mg 05/25/19 17:00 05/27/19 16:29 Marinol - PO 5 mg BID@1130,1700 [facility] Administration Fat Emulsion Intravenous 250 ml 05/26/19 22:00 05/26/19 21:39 Intralipid - IV 250 ml DAILY@2200 [facility] Administration Hydromorphone HCl 2 mg 05/22/19 12:17 05/27/19 10:34 Dilaudid - PO 2 mg Q4H PRN Administration PAIN LEVEL 7 - 10 IV Flush 10 ml 05/20/19 16:01 05/25/19 13:38 Johann-Cath Flush IVPUSH 10 ml PRN PRN Administration protocol Potassium Chloride 40 meq/ 1,020 mls @ 60 mls/hr 05/23/19 17:55 05/27/19 06: 55 Amino Acids IVPB Not Given Q17H [facility] Magnesium Chloride 64 mg 05/22/19 11:15 05/27/19 09:09 Slow-Mag - PO 64 mg DAILY [facility] Administration Melatonin 5 mg 05/19/19 23:13 05/25/19 22:46 Melatonin PO 5 mg HS PRN Administration INSOMNIA Metoprolol Succinate 25 mg 05/18/19 20:30 05/27/19 09:09 Toprol Xl - PO 25 mg DAILY [facility] Administration Ondansetron HCl 8 mg 05/18/19 20:20 05/22/19 17:02 Zofran Injection IVPB 8 mg Q8H PRN Administration NAUSEA Pantoprazole Sodium 40 mg 05/18/19 22:00 05/27/19 09:09 Protonix - PO 40 mg BID [facility] Administration Sucralfate 1 gm 05/18/19 22:00 05/27/19 16:29 Carafate Oral Suspension - PO Not Given ACHS [facility] Impression 1. hyponatremia 2. htn 3. pancytopenia 4. breast cancer 5. hypokalemia 6. hypercalcemia 7. malnutrition Plan - cont clinimix - repeat labs in am - encourage po intake - check cmp in am - nutrition follow up - monitor calcium levels
[2019-05-27] MEDS: ALPRAZolam 1 MG TABLET PO PRN (21:34)
[2019-05-27] MEDS: FAT EMULSIONS 20% 250 ML PREMIX INFUS.BAG IV SCH (21:36)
--- NOTE | 2019-05-27 22:00 | PN ---
Progress Note (short form) - Note Progress Note: Patient seen and examined Feels OK AFVSS Cor: RSR, No murmurs, No gallops Lungs: Clear to P&A Abd: Soft, Normal bowel sounds, No organomegaly Ext:No significant edema Labs/Meds reviewed A/P Metastatic breast ca Extensive osseous mets Hypercalcemia--- s/p zometa 05/20/19 Malnutrition Nausea and emesis MRI brain --- osseous mets involving the skull with pachymeningeal thickening at the site of osseous mets. No intraaxial mets/vasogenic edema Multiple liver mets filure to thrive supportive care
[2019-05-28] MEDS: SUCRALFATE 1 GM/10 ML UNIT DOSE CUPS PO SCH ×4 (06:14→22:10)
[2019-05-28] MEDS: HYDROmorphone HCL 2 MG TABLET PO PRN ×4 (06:14→22:12)
[2019-05-28 06:38] LABS: BASO % 0.9 % (0-2.0); EOS % 1.8 % (0-4.5); HEMOGLOBIN 9.8 GM/dL (10.7-15.3); LYMPH % 20.8 % (8-40); MCH 28.8 pg (25.7-33.7); MEAN CELL VOLUME 82.3 fl (80-96); MONO % 10.6 % (3.8-10.2); NEUT % 65.9 % (42.8-82.8); PLATELET COUNT 200 K/MM3 (134-434); RDW 18.7 % (11.6-15.6); WHITE BLOOD COUNT 6.5 K/mm3 (4.0-10.0)
[2019-05-28 07:29] LABS: ALBUMIN 3.1 g/dl (3.4-5.0); BILIRUBIN,TOTAL 0.5 mg/dL (0.2-1); BLOOD UREA NITROGEN 28.2 mg/dL (7-18); CALCIUM 9.8 mg/dL (8.5-10.1); CREATININE 0.9 mg/dL (0.55-1.3); MAGNESIUM 1.8 mg/dL (1.8-2.4); PHOSPHOROUS 4.6 mg/dL (2.5-4.9); POTASSIUM 4.6 mmol/L (3.5-5.1); TOT PROT 6.7 g/dl (6.4-8.2)
[2019-05-28] MEDS ORDERED: PT OWN MED DRAWER 7, Y5N ONE (08:54)
[2019-05-28] MEDS: PANTOPRAZOLE 40 MG TABLET PO SCH ×2 (09:08→22:11)
[2019-05-28] MEDS: amLODIPine BESYLATE 2.5 MG TABLET (FP) PO SCH (09:08)
[2019-05-28] MEDS: metoPROLOL SUCCINATE 25 MG TAB.SR.24H (FP) PO SCH (09:08)
[2019-05-28] MEDS: MAGNESIUM CL 64 MG TABLET.SA PO SCH (09:08)
[2019-05-28 10:55] LABS: ANISOCYTOSIS 1+; MACROCYTOSIS 0; PLATELET ESTIMATE NORMAL; TEAR DROP CELLS 1+
[2019-05-28] MEDS: ONDANSETRON 4 MG/2 ML VIAL IVPB PRN (12:11)
[2019-05-28] MEDS: DRONABINOL 5 MG CAPSULE PO SCH ×2 (12:11→17:02)
[2019-05-28] MEDS: POTASSIUM CHLORIDE 40 MEQ in AMINO ACIDS 4.25%/D5W 1,000 ML IVPB SCH (17:01)
--- NOTE | 2019-05-28 17:23 | PN ---
Progress Note, Physician History of Present Illness: Pt seen and examined at bedside. She is awake and alert. - Current Medication List Current Medications: Active Medications Alprazolam (Xanax) 0.25 mg PO Q12H PRN PRN Reason: ANXIETY Last Admin: 05/25/19 12:56 Dose: 0.25 mg Alprazolam (Xanax) 1 mg PO HS PRN PRN Reason: ANXIETY Last Admin: 05/27/19 21:34 Dose: 1 mg Amlodipine Besylate (Norvasc -) 2.5 mg PO DAILY [facility] Last Admin: 05/28/19 09:08 Dose: 2.5 mg Dronabinol (Marinol -) 5 mg PO BID@1130,1700 [facility] Last Admin: 05/28/19 17:02 Dose: 5 mg Fat Emulsion Intravenous (Intralipid -) 250 ml IV DAILY@2200 [facility] Last Admin: 05/27/19 21:36 Dose: 250 ml Hydromorphone HCl (Dilaudid -) 2 mg PO Q4H PRN PRN Reason: PAIN LEVEL 7 - 10 Last Admin: 05/28/19 16:14 Dose: 2 mg IV Flush (Johann-Cath Flush) 10 ml IVPUSH PRN PRN PRN Reason: protocol Last Admin: 05/25/19 13:38 Dose: 10 ml Potassium Chloride 40 meq/ (Amino Acids) 1,020 mls @ 60 mls/hr IVPB Q17H [facility] Last Admin: 05/28/19 17:01 Dose: 60 mls/hr Magnesium Chloride (Slow-Mag -) 64 mg PO DAILY [facility] Last Admin: 05/28/19 09:08 Dose: 64 mg Melatonin (Melatonin) 5 mg PO HS PRN PRN Reason: INSOMNIA Last Admin: 05/25/19 22:46 Dose: 5 mg Metoprolol Succinate (Toprol Xl -) 25 mg PO DAILY [facility] Last Admin: 05/28/19 09:08 Dose: 25 mg Ondansetron HCl (Zofran Injection) 8 mg IVPB Q8H PRN PRN Reason: NAUSEA Last Admin: 05/28/19 12:11 Dose: 8 mg Pantoprazole Sodium (Protonix -) 40 mg PO BID [facility] Last Admin: 05/28/19 09:08 Dose: 40 mg Sucralfate (Carafate Oral Suspension -) 1 gm PO ACHS [facility] Last Admin: 05/28/19 16:11 Dose: Not Given - Objective Vital Signs: Vital Signs Temperature 97.7 F 05/28/19 13:53 Pulse Rate 90 05/28/19 13:53 Respiratory Rate 20 05/28/19 13:53 Blood Pressure 130/68 05/28/19 13:53 O2 Sat by Pulse Oximetry (%) 100 05/28/19 09:00 Constitutional: Yes: Calm Eyes: Yes: Conjunctiva Clear HENT: Yes: Atraumatic Neck: Yes: Supple Cardiovascular: Yes: S1, S2 Respiratory: Yes: CTA Bilaterally Gastrointestinal: Yes: Soft Genitourinary: Yes: WNL Musculoskeletal: Yes: WNL Edema: No Neurological: Yes: Oriented Labs: CBC, BMP 05/28/19 06:15 05/28/19 06:15 INR, PTT INR 1.13 (0.83-1.09) H 05/22/19 14:14 Problem List - Problems (1) Abnormal liver function tests Code(s): R94.5 - ABNORMAL RESULTS OF LIVER FUNCTION STUDIES (2) Breast cancer, left breast Code(s): C50.912 - MALIGNANT NEOPLASM OF UNSPECIFIED SITE OF LEFT FEMALE BREAST Qualifiers: Breast location: lower inner quadrant of breast Patient sex: female Assessment/Plan Current Medications Generic Name Dose Route Start Last Admin Trade Name Freq PRN Reason Stop Dose Admin Alprazolam 0.25 mg 05/25/19 12:46 05/25/19 12:56 Xanax PO 0.25 mg Q12H PRN Administration ANXIETY Alprazolam 1 mg 05/25/19 18:58 05/27/19 21:34 Xanax PO 1 mg HS PRN Administration ANXIETY Amlodipine Besylate 2.5 mg 05/20/19 21:00 05/28/19 09:08 Norvasc - PO 2.5 mg DAILY [facility] Administration Dronabinol 5 mg 05/25/19 17:00 05/28/19 17:02 Marinol - PO 5 mg BID@1130,1700 [facility] Administration Fat Emulsion Intravenous 250 ml 05/26/19 22:00 05/27/19 21:36 Intralipid - IV 250 ml DAILY@2200 [facility] Administration Hydromorphone HCl 2 mg 05/22/19 12:17 05/28/19 16:14 Dilaudid - PO 2 mg Q4H PRN Administration PAIN LEVEL 7 - 10 IV Flush 10 ml 05/20/19 16:01 05/25/19 13:38 Johann-Cath Flush IVPUSH 10 ml PRN PRN Administration protocol Potassium Chloride 40 meq/ 1,020 mls @ 60 mls/hr 05/23/19 17:55 05/28/19 17: 01 Amino Acids IVPB 60 mls/hr Q17H [facility] Administration Magnesium Chloride 64 mg 05/22/19 11:15 05/28/19 09:08 Slow-Mag - PO 64 mg DAILY [facility] Administration Melatonin 5 mg 05/19/19 23:13 05/25/19 22:46 Melatonin PO 5 mg HS PRN Administration INSOMNIA Metoprolol Succinate 25 mg 05/18/19 20:30 05/28/19 09:08 Toprol Xl - PO 25 mg DAILY CARTER Administration Ondansetron HCl 8 mg 05/18/19 20:20 05/28/19 12:11 Zofran Injection IVPB 8 mg Q8H PRN Administration NAUSEA Pantoprazole Sodium 40 mg 05/18/19 22:00 05/28/19 09:08 Protonix - PO 40 mg BID CARTER Administration Sucralfate 1 gm 05/18/19 22:00 05/28/19 16:11 Carafate Oral Suspension - PO Not Given [facility] Impression 1. hyponatremia 2. htn 3. pancytopenia 4. breast cancer 5. hypokalemia 6. hypercalcemia 7. malnutrition Plan - decrease rate of clinimix as sodium is dropping and bun is rising - repeat labs in am - encourage po intake - nutrition follow up - monitor calcium levels
[2019-05-28] MEDS ORDERED: AMINO ACIDS 4.25%/D5W 1,000 ML IV SCH (17:30)
--- NOTE | 2019-05-28 17:59 | PN ---
Progress Note, Physician History of Present Illness: Having some right foot pain today. Otherwise, no complaints. Eating more. - Current Medication List Current Medications: Active Medications Alprazolam (Xanax) 0.25 mg PO Q12H PRN PRN Reason: ANXIETY Last Admin: 05/25/19 12:56 Dose: 0.25 mg Alprazolam (Xanax) 1 mg PO HS PRN PRN Reason: ANXIETY Last Admin: 05/27/19 21:34 Dose: 1 mg Amlodipine Besylate (Norvasc -) 2.5 mg PO DAILY [facility] Last Admin: 05/28/19 09:08 Dose: 2.5 mg Dronabinol (Marinol -) 5 mg PO BID@1130,1700 [facility] Last Admin: 05/28/19 17:02 Dose: 5 mg Hydromorphone HCl (Dilaudid -) 2 mg PO Q4H PRN PRN Reason: PAIN LEVEL 7 - 10 Last Admin: 05/28/19 16:14 Dose: 2 mg IV Flush (Johann-Cath Flush) 10 ml IVPUSH PRN PRN PRN Reason: protocol Last Admin: 05/25/19 13:38 Dose: 10 ml Amino Acids (Clinimix -) 1,000 mls @ 40 mls/hr IV Q24H [facility] Magnesium Chloride (Slow-Mag -) 64 mg PO DAILY [facility] Last Admin: 05/28/19 09:08 Dose: 64 mg Melatonin (Melatonin) 5 mg PO HS PRN PRN Reason: INSOMNIA Last Admin: 05/25/19 22:46 Dose: 5 mg Metoprolol Succinate (Toprol Xl -) 25 mg PO DAILY [facility] Last Admin: 05/28/19 09:08 Dose: 25 mg Ondansetron HCl (Zofran Injection) 8 mg IVPB Q8H PRN PRN Reason: NAUSEA Last Admin: 05/28/19 12:11 Dose: 8 mg Pantoprazole Sodium (Protonix -) 40 mg PO BID [facility] Last Admin: 05/28/19 09:08 Dose: 40 mg Sucralfate (Carafate Oral Suspension -) 1 gm PO ACHS [facility] Last Admin: 05/28/19 16:11 Dose: Not Given - Objective Vital Signs: Vital Signs Temperature 98.6 F 05/28/19 17:28 Pulse Rate 94 H 05/28/19 17:28 Respiratory Rate 18 05/28/19 17:28 Blood Pressure 121/58 L 05/28/19 17:28 O2 Sat by Pulse Oximetry (%) 100 05/28/19 09:00 Constitutional: Yes: No Distress Eyes: Yes: Conjunctiva Clear Respiratory: Yes: Regular, CTA Bilaterally Gastrointestinal: Yes: Soft. 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 MRI with pachymeningeal enhancement, s/p LP with elevated protein, normal glucose, cytology pending. s/p zometa on 05/20/19 for hypercalcemia c/w supportive care
[2019-05-28] MEDS: MELATONIN 5 MG TABLETS PO PRN (22:11)
[2019-05-28] MEDS: ALPRAZolam 1 MG TABLET PO PRN (22:11)
[2019-05-28] MEDS: PORTA CATH FLUSH 10 ML IVPUSH PRN (22:17)
[2019-05-29] MEDS: SUCRALFATE 1 GM/10 ML UNIT DOSE CUPS PO SCH ×5 (06:01→21:53)
[2019-05-29] MEDS: HYDROmorphone HCL 2 MG TABLET PO PRN ×3 (06:45→21:54)
[2019-05-29 07:34] LABS: EOS % 1.7 % (0-4.5); HEMATOCRIT 26.8 % (32.4-45.2); HEMOGLOBIN 9.2 GM/dL (10.7-15.3); LYMPH % 15.3 % (8-40); MCH 28.3 pg (25.7-33.7); MCHC 34.5 g/dl (32.0-36.0); MEAN CELL VOLUME 81.9 fl (80-96); MEAN PLT VOLUME 7.3 fl (7.5-11.1); MONO % 10.6 % (3.8-10.2); NEUT % 71.4 % (42.8-82.8); PLATELET COUNT 188 K/MM3 (134-434); RBC 3.27 M/mm3 (3.60-5.2); RDW 18.5 % (11.6-15.6); WHITE BLOOD COUNT 6.6 K/mm3 (4.0-10.0)
[2019-05-29 08:06] LABS: BILIRUBIN,TOTAL 0.8 mg/dL (0.2-1); BLOOD UREA NITROGEN 32.2 mg/dL (7-18); CREATININE 0.9 mg/dL (0.55-1.3); POTASSIUM 4.7 mmol/L (3.5-5.1); TOT PROT 6.4 g/dl (6.4-8.2)
[2019-05-29] MEDS: DOCUSATE SODIUM 100 MG CAPSULE (FP) PO SCH (09:29)
[2019-05-29] MEDS: amLODIPine BESYLATE 2.5 MG TABLET (FP) PO SCH (09:30)
[2019-05-29] MEDS: metoPROLOL SUCCINATE 25 MG TAB.SR.24H (FP) PO SCH (09:31)
[2019-05-29] MEDS: PANTOPRAZOLE 40 MG TABLET PO SCH ×2 (09:31→21:54)
[2019-05-29] MEDS ORDERED: PT OWN MED DRAWER 7, Y5N ONE ×2 (09:34→20:44)
[2019-05-29] MEDS: MAGNESIUM CL 64 MG TABLET.SA PO SCH (09:35)
[2019-05-29] MEDS: DRONABINOL 5 MG CAPSULE PO SCH ×2 (11:20→16:53)
[2019-05-29] MEDS: PORTA CATH FLUSH 10 ML IVPUSH PRN (13:30)
[2019-05-29] MEDS: SODIUM CHLORIDE 1 GM TABLET PO SCH ×2 (17:57→21:53)
--- NOTE | 2019-05-29 18:24 | PN ---
Progress Note, Physician History of Present Illness: R foot pain resolved. Vomiting after eating today. - Current Medication List Current Medications: Active Medications Alprazolam (Xanax -) 0.5 mg PO Q12H PRN PRN Reason: ANXIETY Amlodipine Besylate (Norvasc -) 2.5 mg PO DAILY [facility] Last Admin: 05/29/19 09:30 Dose: 2.5 mg Docusate Sodium (Colace -) 100 mg PO DAILY [facility] Last Admin: 05/29/19 09:29 Dose: 100 mg Dronabinol (Marinol -) 5 mg PO BID@1130,1700 [facility] Last Admin: 05/29/19 16:53 Dose: 5 mg Hydromorphone HCl (Dilaudid -) 2 mg PO Q4H PRN PRN Reason: PAIN LEVEL 7 - 10 Last Admin: 05/29/19 12:56 Dose: 2 mg IV Flush (Johann-Cath Flush) 10 ml IVPUSH PRN PRN PRN Reason: protocol Last Admin: 05/29/19 13:30 Dose: 10 ml Magnesium Chloride (Slow-Mag -) 64 mg PO DAILY [facility] Last Admin: 05/29/19 09:35 Dose: 64 mg Melatonin (Melatonin) 5 mg PO HS PRN PRN Reason: INSOMNIA Last Admin: 05/28/19 22:11 Dose: 5 mg Metoprolol Succinate (Toprol Xl -) 25 mg PO DAILY [facility] Last Admin: 05/29/19 09:31 Dose: 25 mg Ondansetron HCl (Zofran Injection) 8 mg IVPB Q8H PRN PRN Reason: NAUSEA Last Admin: 05/28/19 12:11 Dose: 8 mg Pantoprazole Sodium (Protonix -) 40 mg PO BID [facility] Last Admin: 05/29/19 09:31 Dose: 40 mg Sodium Chloride (Sodium Chloride Tablet -) 1 gm PO BID [facility] Last Admin: 05/29/19 17:57 Dose: 1 gm Sucralfate (Carafate Oral Suspension -) 1 gm PO ACHS [facility] Last Admin: 05/29/19 17:44 Dose: Not Given - Objective Vital Signs: Vital Signs Temperature 98.8 F 05/29/19 17:35 Pulse Rate 96 H 05/29/19 17:35 Respiratory Rate 18 05/29/19 17:35 Blood Pressure 112/61 05/29/19 17:35 O2 Sat by Pulse Oximetry (%) 97 05/29/19 09:00 Constitutional: Yes: No Distress, Calm Eyes: Yes: Conjunctiva Clear Cardiovascular: Yes: Regular Rate and Rhythm Respiratory: Yes: Regular, CTA Bilaterally Gastrointestinal: Yes: Normal Bowel Sounds. 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 MRI with pachymeningeal enhancement, s/p LP with elevated protein, normal glucose, cytology pending. s/p zometa on 05/20/19 for hypercalcemia appreciate nephrology f/u - stopped clinimix and started sodium tabs for hyponatremia, will follow levels closely
--- NOTE | 2019-05-29 18:42 | PN ---
Progress Note, Physician History of Present Illness: Pt seen and examined at bedside. She is awake and appears comfortable. - Current Medication List Current Medications: Active Medications Alprazolam (Xanax -) 0.5 mg PO Q12H PRN PRN Reason: ANXIETY Amlodipine Besylate (Norvasc -) 2.5 mg PO DAILY [facility] Last Admin: 05/29/19 09:30 Dose: 2.5 mg Docusate Sodium (Colace -) 100 mg PO DAILY [facility] Last Admin: 05/29/19 09:29 Dose: 100 mg Dronabinol (Marinol -) 5 mg PO BID@1130,1700 [facility] Last Admin: 05/29/19 16:53 Dose: 5 mg Hydromorphone HCl (Dilaudid -) 2 mg PO Q4H PRN PRN Reason: PAIN LEVEL 7 - 10 Last Admin: 05/29/19 12:56 Dose: 2 mg IV Flush (Johann-Cath Flush) 10 ml IVPUSH PRN PRN PRN Reason: protocol Last Admin: 05/29/19 13:30 Dose: 10 ml Magnesium Chloride (Slow-Mag -) 64 mg PO DAILY [facility] Last Admin: 05/29/19 09:35 Dose: 64 mg Melatonin (Melatonin) 5 mg PO HS PRN PRN Reason: INSOMNIA Last Admin: 05/28/19 22:11 Dose: 5 mg Metoprolol Succinate (Toprol Xl -) 25 mg PO DAILY [facility] Last Admin: 05/29/19 09:31 Dose: 25 mg Ondansetron HCl (Zofran Injection) 8 mg IVPB Q8H PRN PRN Reason: NAUSEA Last Admin: 05/28/19 12:11 Dose: 8 mg Pantoprazole Sodium (Protonix -) 40 mg PO BID [facility] Last Admin: 05/29/19 09:31 Dose: 40 mg Sodium Chloride (Sodium Chloride Tablet -) 1 gm PO BID [facility] Last Admin: 05/29/19 17:57 Dose: 1 gm Sucralfate (Carafate Oral Suspension -) 1 gm PO ACHS [facility] Last Admin: 05/29/19 17:44 Dose: Not Given - Objective Vital Signs: Vital Signs Temperature 98.8 F 05/29/19 17:35 Pulse Rate 96 H 05/29/19 17:35 Respiratory Rate 18 05/29/19 17:35 Blood Pressure 112/61 05/29/19 17:35 O2 Sat by Pulse Oximetry (%) 97 05/29/19 09:00 Constitutional: Yes: Calm Eyes: Yes: Conjunctiva Clear HENT: Yes: Atraumatic Cardiovascular: Yes: S1, S2 Respiratory: Yes: CTA Bilaterally Genitourinary: Yes: WNL Musculoskeletal: Yes: WNL Edema: No Neurological: Yes: Oriented Psychiatric: Yes: Oriented Labs: CBC, BMP 05/29/19 06:00 05/29/19 06:00 INR, PTT INR 1.13 (0.83-1.09) H 05/22/19 14:14 Problem List - Problems (1) Abnormal liver function tests Code(s): R94.5 - ABNORMAL RESULTS OF LIVER FUNCTION STUDIES (2) Breast cancer, left breast Code(s): C50.912 - MALIGNANT NEOPLASM OF UNSPECIFIED SITE OF LEFT FEMALE BREAST Qualifiers: Breast location: lower inner quadrant of breast Patient sex: female Assessment/Plan Current Medications Generic Name Dose Route Start Last Admin Trade Name Freq PRN Reason Stop Dose Admin Alprazolam 0.5 mg 05/29/19 18:19 Xanax - PO Q12H PRN ANXIETY Amlodipine Besylate 2.5 mg 05/20/19 21:00 05/29/19 09:30 Norvasc - PO 2.5 mg DAILY [facility] Administration Docusate Sodium 100 mg 05/29/19 10:00 05/29/19 09:29 Colace - PO 100 mg DAILY [facility] Administration Dronabinol 5 mg 05/25/19 17:00 05/29/19 16:53 Marinol - PO 5 mg BID@1130,1700 [facility] Administration Hydromorphone HCl 2 mg 05/22/19 12:17 05/29/19 12:56 Dilaudid - PO 2 mg Q4H PRN Administration PAIN LEVEL 7 - 10 IV Flush 10 ml 05/20/19 16:01 05/29/19 13:30 Johann-Cath Flush IVPUSH 10 ml PRN PRN Administration protocol Magnesium Chloride 64 mg 05/22/19 11:15 05/29/19 09:35 Slow-Mag - PO 64 mg DAILY [facility] Administration Melatonin 5 mg 05/19/19 23:13 05/28/19 22:11 Melatonin PO 5 mg HS PRN Administration INSOMNIA Metoprolol Succinate 25 mg 05/18/19 20:30 05/29/19 09:31 Toprol Xl - PO 25 mg DAILY [facility] Administration Ondansetron HCl 8 mg 05/18/19 20:20 05/28/19 12:11 Zofran Injection IVPB 8 mg Q8H PRN Administration NAUSEA Pantoprazole Sodium 40 mg 05/18/19 22:00 05/29/19 09:31 Protonix - PO 40 mg BID [facility] Administration Sodium Chloride 1 gm 05/29/19 14:38 05/29/19 17:57 Sodium Chloride Tablet - PO 05/30/19 10:01 1 gm BID [facility] Administration Sucralfate 1 gm 05/18/19 22:00 05/29/19 17:44 Carafate Oral Suspension - PO Not Given ACHS [facility] Impression 1. hyponatremia 2. htn 3. pancytopenia 4. breast cancer 5. hypokalemia 6. hypercalcemia 7. malnutrition Plan - stop clinimix as sodium is dropping - will give salt tab 1 gram x 3 doses - repeat labs in am - encourage PO intake - monitor calcium levels
[2019-05-29] MEDS: MELATONIN 5 MG TABLETS PO PRN (21:53)
[2019-05-29] MEDS: ALPRAZolam 0.25 MG TABLET PO PRN (21:54)
[2019-05-30] MEDS: HYDROmorphone HCL 2 MG TABLET PO PRN ×3 (02:13→10:44)
[2019-05-30] MEDS: SUCRALFATE 1 GM/10 ML UNIT DOSE CUPS PO SCH ×4 (06:10→21:54)
[2019-05-30 08:37] LABS: BASO % 1.1 % (0-2.0); HEMATOCRIT 26.9 % (32.4-45.2); HEMOGLOBIN 9.2 GM/dL (10.7-15.3); LYMPH % 15.3 % (8-40); MCH 28.3 pg (25.7-33.7); MCHC 34.1 g/dl (32.0-36.0); MEAN PLT VOLUME 7.1 fl (7.5-11.1); MONO % 12.5 % (3.8-10.2); NEUT % 69.1 % (42.8-82.8); PLATELET COUNT 190 K/MM3 (134-434); RBC 3.24 M/mm3 (3.60-5.2); RDW 18.6 % (11.6-15.6); WHITE BLOOD COUNT 5.8 K/mm3 (4.0-10.0)
[2019-05-30 09:01] LABS: BILIRUBIN,TOTAL 0.7 mg/dL (0.2-1); BLOOD UREA NITROGEN 36.4 mg/dL (7-18); CALCIUM 9.7 mg/dL (8.5-10.1); PHOSPHOROUS 4.3 mg/dL (2.5-4.9); POTASSIUM 4.5 mmol/L (3.5-5.1); TOT PROT 6.3 g/dl (6.4-8.2)
[2019-05-30] MEDS: metoPROLOL SUCCINATE 25 MG TAB.SR.24H (FP) PO SCH (09:07)
[2019-05-30] MEDS: SODIUM CHLORIDE 1 GM TABLET PO SCH (09:07)
[2019-05-30] MEDS: DOCUSATE SODIUM 100 MG CAPSULE (FP) PO SCH (09:07)
[2019-05-30] MEDS: PANTOPRAZOLE 40 MG TABLET PO SCH ×2 (09:07→21:56)
[2019-05-30] MEDS: amLODIPine BESYLATE 2.5 MG TABLET (FP) PO SCH (09:08)
[2019-05-30] MEDS: MAGNESIUM CL 64 MG TABLET.SA PO SCH (09:08)
[2019-05-30] MEDS: DRONABINOL 5 MG CAPSULE PO SCH ×2 (11:55→16:33)
[2019-05-30] MEDS: PORTA CATH FLUSH 10 ML IVPUSH PRN (11:56)
[2019-05-30] MEDS: ONDANSETRON 4 MG/2 ML VIAL IVPB PRN (11:59)
--- NOTE | 2019-05-30 15:53 | PN ---
Progress Note (short form) - Note Progress Note: Radiation Oncology RT to bilateral ribs completed with mild improvement in pain control. Emesis persistent. Virtually no po intake. On clinimax. U/S shows multiple hepatic masses c/w metastatic disease. 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 s/p LP Impression: Progressive metastatic breast cancer - bone, meninges, now with liver mets s/p RT ribs Anti-emetics to control symptoms likely from hepatic disease Follow up cytology TPN Palliative care
--- NOTE | 2019-05-30 16:18 | PN ---
Progress Note, Physician History of Present Illness: Pt seen and examined at bedside. She complains of nausea and vomiting. - Current Medication List Current Medications: Active Medications Alprazolam (Xanax -) 0.5 mg PO Q12H PRN PRN Reason: ANXIETY Last Admin: 05/29/19 21:54 Dose: 0.5 mg Amlodipine Besylate (Norvasc -) 2.5 mg PO DAILY [facility] Last Admin: 05/30/19 09:08 Dose: 2.5 mg Docusate Sodium (Colace -) 100 mg PO DAILY [facility] Last Admin: 05/30/19 09:07 Dose: 100 mg Dronabinol (Marinol -) 5 mg PO BID@1130,1700 [facility] Last Admin: 05/30/19 11:55 Dose: 5 mg Hydromorphone HCl (Dilaudid -) 2 mg PO Q4H PRN PRN Reason: PAIN LEVEL 7 - 10 Last Admin: 05/30/19 10:44 Dose: 2 mg IV Flush (Johann-Cath Flush) 10 ml IVPUSH PRN PRN PRN Reason: protocol Last Admin: 05/30/19 11:56 Dose: 10 ml Magnesium Chloride (Slow-Mag -) 64 mg PO DAILY [facility] Last Admin: 05/30/19 09:08 Dose: 64 mg Melatonin (Melatonin) 5 mg PO HS PRN PRN Reason: INSOMNIA Last Admin: 05/29/19 21:53 Dose: 5 mg Metoprolol Succinate (Toprol Xl -) 25 mg PO DAILY [facility] Last Admin: 05/30/19 09:07 Dose: 25 mg Ondansetron HCl (Zofran Injection) 8 mg IVPB Q8H PRN PRN Reason: NAUSEA Last Admin: 05/30/19 11:59 Dose: 8 mg Pantoprazole Sodium (Protonix -) 40 mg PO BID [facility] Last Admin: 05/30/19 09:07 Dose: 40 mg Sucralfate (Carafate Oral Suspension -) 1 gm PO ACHS [facility] Last Admin: 05/30/19 11:55 Dose: Not Given - Objective Vital Signs: Vital Signs Temperature 97.8 F 05/30/19 14:24 Pulse Rate 92 H 05/30/19 14:24 Respiratory Rate 20 05/30/19 14:24 Blood Pressure 112/59 L 05/30/19 14:24 O2 Sat by Pulse Oximetry (%) 99 05/30/19 09:00 Constitutional: Yes: Calm Eyes: Yes: Conjunctiva Clear HENT: Yes: Atraumatic Neck: Yes: Supple Cardiovascular: Yes: S1, S2 Respiratory: Yes: CTA Bilaterally Gastrointestinal: Yes: Soft Genitourinary: Yes: WNL Musculoskeletal: Yes: WNL Edema: No Neurological: Yes: Oriented Psychiatric: Yes: Oriented Labs: CBC, BMP 05/30/19 06:00 05/30/19 06:00 INR, PTT INR 1.13 (0.83-1.09) H 05/22/19 14:14 Problem List - Problems (1) Abnormal liver function tests Code(s): R94.5 - ABNORMAL RESULTS OF LIVER FUNCTION STUDIES (2) Breast cancer, left breast Code(s): C50.912 - MALIGNANT NEOPLASM OF UNSPECIFIED SITE OF LEFT FEMALE BREAST Qualifiers: Breast location: lower inner quadrant of breast Patient sex: female Assessment/Plan Current Medications Generic Name Dose Route Start Last Admin Trade Name Freq PRN Reason Stop Dose Admin Alprazolam 0.5 mg 05/29/19 18:19 05/29/19 21:54 Xanax - PO 0.5 mg Q12H PRN Administration ANXIETY Amlodipine Besylate 2.5 mg 05/20/19 21:00 05/30/19 09:08 Norvasc - PO 2.5 mg DAILY [facility] Administration Docusate Sodium 100 mg 05/29/19 10:00 05/30/19 09:07 Colace - PO 100 mg DAILY [facility] Administration Dronabinol 5 mg 05/25/19 17:00 05/30/19 11:55 Marinol - PO 5 mg BID@1130,1700 [facility] Administration Hydromorphone HCl 2 mg 05/22/19 12:17 05/30/19 10:44 Dilaudid - PO 2 mg Q4H PRN Administration PAIN LEVEL 7 - 10 IV Flush 10 ml 05/20/19 16:01 05/30/19 11:56 Johann-Cath Flush IVPUSH 10 ml PRN PRN Administration protocol Sodium Chloride 1,000 mls @ 50 mls/hr 05/30/19 16:15 Normal Saline - IV 05/31/19 16:15 ASDIR [facility] Magnesium Chloride 64 mg 05/22/19 11:15 05/30/19 09:08 Slow-Mag - PO 64 mg DAILY [facility] Administration Melatonin 5 mg 05/19/19 23:13 05/29/19 21:53 Melatonin PO 5 mg HS PRN Administration INSOMNIA Metoprolol Succinate 25 mg 05/18/19 20:30 05/30/19 09:07 Toprol Xl - PO 25 mg DAILY [facility] Administration Ondansetron HCl 8 mg 05/18/19 20:20 05/30/19 11:59 Zofran Injection IVPB 8 mg Q8H PRN Administration NAUSEA Pantoprazole Sodium 40 mg 05/18/19 22:00 05/30/19 09:07 Protonix - PO 40 mg BID [facility] Administration Sucralfate 1 gm 05/18/19 22:00 05/30/19 11:55 Carafate Oral Suspension - PO Not Given ACHS [facility] Impression 1. hyponatremia 2. htn 3. pancytopenia 4. breast cancer 5. hypokalemia 6. hypercalcemia 7. malnutrition Plan - sodium improving - start saline - clinimix on hold - repeat labs in am - monitor calcium levels
[2019-05-30] MEDS: SODIUM CHLORIDE 1,000 ML IV SCH (16:32)
--- NOTE | 2019-05-30 16:58 | PN ---
Progress Note (short form) - Note Progress Note: Patient seen and examined Feels OK Last Vital Signs Temp Pulse Resp BP Pulse Ox 97.8 F 92 H 20 112/59 L 99 05/30/19 14:24 05/30/19 14:24 05/30/19 14:24 05/30/19 14:24 05/30/19 09:00 Cor: RSR, No murmurs, No gallops Lungs: Clear to P&A Abd: Soft, Normal bowel sounds, No organomegaly Ext:No significant edema Labs/Meds reviewed A/P Metastatic breast ca Extensive osseous mets Hypercalcemia--- s/p zometa 05/20/19 Severe Malnutrition Nausea and emesis MRI brain --- osseous mets involving the skull with pachymeningeal thickening at the site of osseous mets. No intraaxial mets/vasogenic edema Multiple liver mets filure to thrive s/p RT to rib mets Ongoing discussions regarding goals of care
[2019-05-30] MEDS: ALPRAZolam 0.25 MG TABLET PO PRN (22:00)
[2019-05-31] MEDS: SUCRALFATE 1 GM/10 ML UNIT DOSE CUPS PO SCH ×4 (06:26→22:10)
[2019-05-31] MEDS: ONDANSETRON 4 MG/2 ML VIAL IVPB PRN (07:49)
[2019-05-31] MEDS: HYDROmorphone HCL 2 MG TABLET PO PRN ×2 (08:50→22:04)
[2019-05-31] MEDS: DOCUSATE SODIUM 100 MG CAPSULE (FP) PO SCH (09:49)
[2019-05-31] MEDS: PANTOPRAZOLE 40 MG TABLET PO SCH ×2 (09:49→22:06)
[2019-05-31] MEDS: amLODIPine BESYLATE 2.5 MG TABLET (FP) PO SCH (09:50)
[2019-05-31] MEDS: metoPROLOL SUCCINATE 25 MG TAB.SR.24H (FP) PO SCH (09:50)
[2019-05-31] MEDS ORDERED: PT OWN MED DRAWER 7, Y5N ONE (09:55)
[2019-05-31] MEDS: MAGNESIUM CL 64 MG TABLET.SA PO SCH (09:57)
[2019-05-31 11:00] LABS: BILIRUBIN,TOTAL 0.8 mg/dL (0.2-1); BLOOD UREA NITROGEN 25.7 mg/dL (7-18); CALCIUM 9.5 mg/dL (8.5-10.1); CREATININE 0.8 mg/dL (0.55-1.3); TOT PROT 6.2 g/dl (6.4-8.2)
[2019-05-31] MEDS ORDERED: MAGNESIUM HYDROX 2400MG/30ML ORAL SUSPENSION 30 ML CUP PO PRN (11:00)
[2019-05-31] MEDS: SENNOSIDES 8.6MG TABLET (FP) PO SCH ×2 (11:37→22:06)
[2019-05-31] MEDS: DRONABINOL 5 MG CAPSULE PO SCH ×2 (11:37→17:36)
--- NOTE | 2019-05-31 11:39 | PATH ---
Cytology Non-Gynecological Report Patient Name: ROSALIO DICKERSON Med. Rec. #: [id number] /Age/Gender: 1950 (Age: 69) / F Account: [id number] Location: [facility] MED/SURG Taken: 05/24/2019 Received: 05/31/2019 Reported: 05/31/2019 Physicians: Tez Cage M.D. Jacob Gebrael, M.D. Specimen(s) Received CEREBROSPINAL FLUID Clinical History Leptomeningeal disease, breast cancer, bone lesions Final Diagnosis CEREBROSPINAL FLUID FOR CYTOLOGY: SATISFACTORY FOR EVALUATION. NEGATIVE FOR MALIGNANT CELLS. RARE LYMPHOCYTES, ISOLATED DEGENERATED CELLS, AND SCATTERED RED BLOOD CELLS PRESENT. Comment: Prior materials are noted. Findings discussed with Drs. Galvan and Christie, 05/31/19. Electronically Signed Page Caputo M.D. Gross Description Approximately 4 cc of clear fluid received fresh. Three cytofunnels prepared and Pap stained
[2019-05-31 11:51] VITALS: BMI 20.5
[2019-05-31] MEDS: ONDANSETRON 4 MG/2 ML VIAL IVPUSH PRN ×2 (12:35→17:36)
[2019-05-31] MEDS: ALPRAZolam 0.25 MG TABLET PO PRN (12:35)
[2019-05-31] MEDS: SODIUM CHLORIDE 1,000 ML IV SCH ×2 (12:37→17:28)
--- NOTE | 2019-05-31 15:32 | PN ---
Progress Note, Physician History of Present Illness: Pt seen and examined at beside. She is not tolerating all of her diet. - Current Medication List Current Medications: Active Medications Alprazolam (Xanax -) 0.5 mg PO Q12H PRN PRN Reason: ANXIETY Last Admin: 05/31/19 12:35 Dose: 0.5 mg Amlodipine Besylate (Norvasc -) 2.5 mg PO DAILY [facility] Last Admin: 05/31/19 09:50 Dose: 2.5 mg Docusate Sodium (Colace -) 100 mg PO DAILY [facility] Last Admin: 05/31/19 09:49 Dose: 100 mg Dronabinol (Marinol -) 5 mg PO BID@1130,1700 [facility] Last Admin: 05/31/19 11:37 Dose: 5 mg Hydromorphone HCl (Dilaudid -) 2 mg PO Q4H PRN PRN Reason: PAIN LEVEL 7 - 10 Last Admin: 05/31/19 08:50 Dose: 2 mg IV Flush (Johann-Cath Flush) 10 ml IVPUSH PRN PRN PRN Reason: protocol Last Admin: 05/30/19 11:56 Dose: 10 ml Sodium Chloride (Normal Saline -) 1,000 mls @ 50 mls/hr IV ASDIR [facility] Stop: 05/31/19 16:15 Last Admin: 05/31/19 12:37 Dose: 50 mls/hr Magnesium Chloride (Slow-Mag -) 64 mg PO DAILY [facility] Last Admin: 05/31/19 09:57 Dose: 64 mg Magnesium Hydroxide (Milk Of Magnesia -) 30 ml PO DAILY PRN PRN Reason: CONSTIPATION Melatonin (Melatonin) 5 mg PO HS PRN PRN Reason: INSOMNIA Last Admin: 05/29/19 21:53 Dose: 5 mg Metoprolol Succinate (Toprol Xl -) 25 mg PO DAILY [facility] Last Admin: 05/31/19 09:50 Dose: 25 mg Ondansetron HCl (Zofran Injection) 4 mg IVPUSH Q4H PRN PRN Reason: NAUSEA AND/OR VOMITING Last Admin: 05/31/19 12:35 Dose: 4 mg Pantoprazole Sodium (Protonix -) 40 mg PO BID [facility] Last Admin: 05/31/19 09:49 Dose: 40 mg Senna (Senna -) 1 tab PO BID [facility] Last Admin: 05/31/19 11:37 Dose: 1 tab Sucralfate (Carafate Oral Suspension -) 1 gm PO ACHS [facility] Last Admin: 05/31/19 10:57 Dose: Not Given - Objective Vital Signs: Vital Signs Temperature 98.5 F 05/31/19 14:22 Pulse Rate 101 H 05/31/19 14:22 Respiratory Rate 18 05/31/19 14:22 Blood Pressure 113/65 05/31/19 14:22 O2 Sat by Pulse Oximetry (%) 95 05/31/19 09:00 Constitutional: Yes: Calm Eyes: Yes: Conjunctiva Clear HENT: Yes: Atraumatic Cardiovascular: Yes: S1, S2 Respiratory: Yes: CTA Bilaterally Gastrointestinal: Yes: Soft Genitourinary: Yes: WNL Musculoskeletal: Yes: WNL Edema: No Neurological: Yes: Oriented Labs: CBC, BMP 05/30/19 06:00 05/31/19 09:50 INR, PTT INR 1.13 (0.83-1.09) H 05/22/19 14:14 Problem List - Problems (1) Abnormal liver function tests Code(s): R94.5 - ABNORMAL RESULTS OF LIVER FUNCTION STUDIES (2) Breast cancer, left breast Code(s): C50.912 - MALIGNANT NEOPLASM OF UNSPECIFIED SITE OF LEFT FEMALE BREAST Qualifiers: Breast location: lower inner quadrant of breast Patient sex: female Assessment/Plan Current Medications Generic Name Dose Route Start Last Admin Trade Name Freq PRN Reason Stop Dose Admin Alprazolam 0.5 mg 05/29/19 18:19 05/31/19 12:35 Xanax - PO 0.5 mg Q12H PRN Administration ANXIETY Amlodipine Besylate 2.5 mg 05/20/19 21:00 05/31/19 09:50 Norvasc - PO 2.5 mg DAILY [facility] Administration Docusate Sodium 100 mg 05/29/19 10:00 05/31/19 09:49 Colace - PO 100 mg DAILY [facility] Administration Dronabinol 5 mg 05/25/19 17:00 05/31/19 11:37 Marinol - PO 5 mg BID@1130,1700 [facility] Administration Hydromorphone HCl 2 mg 05/22/19 12:17 05/31/19 08:50 Dilaudid - PO 2 mg Q4H PRN Administration PAIN LEVEL 7 - 10 IV Flush 10 ml 05/20/19 16:01 05/30/19 11:56 Johann-Cath Flush IVPUSH 10 ml PRN PRN Administration protocol Sodium Chloride 1,000 mls @ 50 mls/hr 05/30/19 16:15 05/31/19 12:37 Normal Saline - IV 05/31/19 16:15 50 mls/hr ASDIR [facility] Administration Magnesium Chloride 64 mg 05/22/19 11:15 05/31/19 09:57 Slow-Mag - PO 64 mg DAILY [facility] Administration Magnesium Hydroxide 30 ml 05/31/19 11:00 Milk Of Magnesia - PO DAILY PRN CONSTIPATION Melatonin 5 mg 05/19/19 23:13 05/29/19 21:53 Melatonin PO 5 mg HS PRN Administration INSOMNIA Metoprolol Succinate 25 mg 05/18/19 20:30 05/31/19 09:50 Toprol Xl - PO 25 mg DAILY [facility] Administration Ondansetron HCl 4 mg 05/31/19 10:58 05/31/19 12:35 Zofran Injection IVPUSH 4 mg Q4H PRN Administration NAUSEA AND/OR VOMITING Pantoprazole Sodium 40 mg 05/18/19 22:00 05/31/19 09:49 Protonix - PO 40 mg BID [facility] Administration Senna 1 tab 05/31/19 11:00 05/31/19 11:37 Senna - PO 1 tab BID [facility] Administration Sucralfate 1 gm 05/18/19 22:00 05/31/19 10:57 Carafate Oral Suspension - PO Not Given ACHS [facility] Impression 1. hyponatremia 2. htn 3. pancytopenia 4. breast cancer 5. hypokalemia 6. hypercalcemia 7. malnutrition Plan - cont saline - hold clinimix - check calcium - pt and family will discuss GOC with family
--- NOTE | 2019-05-31 18:15 | PN ---
Progress Note (short form) - Note Progress Note: Patient seen Met with family > 45 minute with full update. No mechanical obstruction in esophagus causing emesis New development of liver mets CSF cytology - Negative - results just received today - CSF protein elevated with normal glucose Possible cause of nausea and emesis is meningeal involvement and usual treatment approach is via Ommaya reservor. 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 With rapid progression of disease in liver - not previously present on prior imaging studies , chemotherapy would be treatment of choice and with poor performance status, patient is a poor candidate for chemotherapy. it would be associated with low response and high risk of toxicity. Possible options - hospice - home; calvary, low dose chemotherapy, WORSHIP DIRECTOR RT Will need input from RT on the latter. Multiple additional questions and answered to the best of my ability.
[2019-06-01] MEDS: ALPRAZolam 0.25 MG TABLET PO PRN ×2 (01:19→21:29)
[2019-06-01] MEDS: HYDROmorphone HCL 2 MG TABLET PO PRN ×2 (08:47→19:11)
[2019-06-01] MEDS: SUCRALFATE 1 GM/10 ML UNIT DOSE CUPS PO SCH ×4 (08:53→21:30)
[2019-06-01] MEDS: PANTOPRAZOLE 40 MG TABLET PO SCH ×2 (09:28→21:29)
[2019-06-01] MEDS: DOCUSATE SODIUM 100 MG CAPSULE (FP) PO SCH (09:28)
[2019-06-01] MEDS: metoPROLOL SUCCINATE 25 MG TAB.SR.24H (FP) PO SCH (09:28)
[2019-06-01] MEDS: SENNOSIDES 8.6MG TABLET (FP) PO SCH ×2 (09:29→21:30)
[2019-06-01] MEDS: amLODIPine BESYLATE 2.5 MG TABLET (FP) PO SCH (09:29)
[2019-06-01] MEDS: MAGNESIUM CL 64 MG TABLET.SA PO SCH (10:04)
[2019-06-01] MEDS: ONDANSETRON 4 MG/2 ML VIAL IVPUSH PRN ×2 (11:12→17:01)
[2019-06-01] MEDS: DRONABINOL 5 MG CAPSULE PO SCH (11:12)
--- NOTE | 2019-06-01 16:07 | PN ---
Progress Note, Physician History of Present Illness: Pt seen and examined at bedside. She tolerated breakfast. - Current Medication List Current Medications: Active Medications Alprazolam (Xanax -) 0.5 mg PO Q12H PRN PRN Reason: ANXIETY Last Admin: 06/01/19 01:19 Dose: 0.5 mg Amlodipine Besylate (Norvasc -) 2.5 mg PO DAILY [facility] Last Admin: 06/01/19 09:29 Dose: 2.5 mg Docusate Sodium (Colace -) 100 mg PO DAILY [facility] Last Admin: 06/01/19 09:28 Dose: Not Given Dronabinol (Marinol -) 5 mg PO BID@1130,1700 [facility] Last Admin: 06/01/19 11:12 Dose: 5 mg Hydromorphone HCl (Dilaudid -) 2 mg PO Q4H PRN PRN Reason: PAIN LEVEL 7 - 10 Last Admin: 06/01/19 08:47 Dose: 2 mg IV Flush (Johann-Cath Flush) 10 ml IVPUSH PRN PRN PRN Reason: protocol Last Admin: 05/30/19 11:56 Dose: 10 ml Magnesium Chloride (Slow-Mag -) 64 mg PO DAILY [facility] Last Admin: 06/01/19 10:04 Dose: 64 mg Magnesium Hydroxide (Milk Of Magnesia -) 30 ml PO DAILY PRN PRN Reason: CONSTIPATION Melatonin (Melatonin) 5 mg PO HS PRN PRN Reason: INSOMNIA Last Admin: 05/29/19 21:53 Dose: 5 mg Metoprolol Succinate (Toprol Xl -) 25 mg PO DAILY [facility] Last Admin: 06/01/19 09:28 Dose: 25 mg Ondansetron HCl (Zofran Injection) 4 mg IVPUSH Q4H PRN PRN Reason: NAUSEA AND/OR VOMITING Last Admin: 06/01/19 11:12 Dose: 4 mg Pantoprazole Sodium (Protonix -) 40 mg PO BID [facility] Last Admin: 06/01/19 09:28 Dose: 40 mg Senna (Senna -) 1 tab PO BID [facility] Last Admin: 06/01/19 09:29 Dose: Not Given Sucralfate (Carafate Oral Suspension -) 1 gm PO ACHS [facility] Last Admin: 06/01/19 10:09 Dose: Not Given - Objective Vital Signs: Vital Signs Temperature 98.0 F 06/01/19 10:00 Pulse Rate 92 H 06/01/19 10:00 Respiratory Rate 20 06/01/19 10:00 Blood Pressure 139/75 06/01/19 10:00 O2 Sat by Pulse Oximetry (%) 99 05/31/19 21:00 Constitutional: Yes: Calm Eyes: Yes: Conjunctiva Clear Cardiovascular: Yes: S1, S2 Respiratory: Yes: CTA Bilaterally Gastrointestinal: Yes: Normal Bowel Sounds, Soft Genitourinary: Yes: WNL Musculoskeletal: Yes: WNL Edema: No Neurological: Yes: Oriented Psychiatric: Yes: Oriented Labs: CBC, BMP 05/30/19 06:00 05/31/19 09:50 INR, PTT INR 1.13 (0.83-1.09) H 05/22/19 14:14 Problem List - Problems (1) Abnormal liver function tests Code(s): R94.5 - ABNORMAL RESULTS OF LIVER FUNCTION STUDIES (2) Breast cancer, left breast Code(s): C50.912 - MALIGNANT NEOPLASM OF UNSPECIFIED SITE OF LEFT FEMALE BREAST Qualifiers: Breast location: lower inner quadrant of breast Patient sex: female Assessment/Plan Current Medications Generic Name Dose Route Start Last Admin Trade Name Freq PRN Reason Stop Dose Admin Alprazolam 0.5 mg 05/29/19 18:19 06/01/19 01:19 Xanax - PO 0.5 mg Q12H PRN Administration ANXIETY Amlodipine Besylate 2.5 mg 05/20/19 21:00 06/01/19 09:29 Norvasc - PO 2.5 mg DAILY [facility] Administration Docusate Sodium 100 mg 05/29/19 10:00 06/01/19 09:28 Colace - PO Not Given DAILY [facility] Dronabinol 5 mg 05/25/19 17:00 06/01/19 11:12 Marinol - PO 5 mg BID@1130,1700 [facility] Administration Hydromorphone HCl 2 mg 05/22/19 12:17 06/01/19 08:47 Dilaudid - PO 2 mg Q4H PRN Administration PAIN LEVEL 7 - 10 IV Flush 10 ml 05/20/19 16:01 05/30/19 11:56 Johann-Cath Flush IVPUSH 10 ml PRN PRN Administration protocol Magnesium Chloride 64 mg 05/22/19 11:15 06/01/19 10:04 Slow-Mag - PO 64 mg DAILY [facility] Administration Magnesium Hydroxide 30 ml 05/31/19 11:00 Milk Of Magnesia - PO DAILY PRN CONSTIPATION Melatonin 5 mg 05/19/19 23:13 05/29/19 21:53 Melatonin PO 5 mg HS PRN Administration INSOMNIA Metoprolol Succinate 25 mg 05/18/19 20:30 06/01/19 09:28 Toprol Xl - PO 25 mg DAILY [facility] Administration Ondansetron HCl 4 mg 05/31/19 10:58 06/01/19 11:12 Zofran Injection IVPUSH 4 mg Q4H PRN Administration NAUSEA AND/OR VOMITING Pantoprazole Sodium 40 mg 05/18/19 22:00 06/01/19 09:28 Protonix - PO 40 mg BID [facility] Administration Senna 1 tab 05/31/19 11:00 06/01/19 09:29 Senna - PO Not Given BID [facility] Sucralfate 1 gm 05/18/19 22:00 06/01/19 10:09 Carafate Oral Suspension - PO Not Given ACHS [facility] Impression 1. hyponatremia 2. htn 3. pancytopenia 4. breast cancer 5. hypokalemia 6. hypercalcemia 7. malnutrition Plan - follow up labs - clinimix on hold as she is hyponatremic - cont saline - encourage po intake - family discussing GOC
--- NOTE | 2019-06-01 19:06 | PN ---
Progress Note (short form) - Note Progress Note: Radiation Oncology Still has some pain in ribcage s/p RT but a bit more mobile. LP results noted, cytology negative for malignancy. Intractable N/V likely secondary to hepatic > meningeal disease. Doubt RT to calvarial disease will significantly alleviate emesis, and hepatic RT would unlikely offer significant relief given extensive involvement that would likely lead to excessive treatment associated toxicity. Not felt to be ideal candidate for systemic therapy by medical oncology. Spent 30 min with patient and family reviewing pros and cons of treatment vs no treatment. Given burden of increasing disease, we discussed consideration for palliative care/hospice as an appropriate and compassionate option. They will further consider. Continue support care.
[2019-06-01 20:34] LABS: BLOOD UREA NITROGEN 14.3 mg/dL (7-18); CREATININE 0.8 mg/dL (0.55-1.3)
[2019-06-01 20:35] LABS: ALBUMIN 2.9 g/dl (3.4-5.0); BILIRUBIN,TOTAL 0.7 mg/dL (0.2-1); CALCIUM 9.5 mg/dL (8.5-10.1); POTASSIUM 3.8 mmol/L (3.5-5.1); TOT PROT 5.8 g/dl (6.4-8.2)
[2019-06-01] MEDS ORDERED: PT OWN MED DRAWER 7, Y5N ONE (20:37)
--- NOTE | 2019-06-01 20:52 | PN ---
Progress Note (short form) - Note Progress Note: Patient seen and examined Discussed with Dr. Roldan and then with patient Possible home hospice to be considered although I am not sure she fully understands concept . Last Vital Signs Temp Pulse Resp BP Pulse Ox 98.2 F 87 20 125/62 99 06/01/19 19:26 06/01/19 19:26 06/01/19 19:26 06/01/19 19:26 06/01/19 09:00 HEENT: GLADYS, EOM Intact Cor: RSR, No murmurs, No gallops Lungs: Clear to P&A Abd: Soft, Normal bowel sounds, No organomegaly Ext:LE edema L>R edema Skin: No rashes, Integument intact CBC, BMP 05/30/19 06:00 06/01/19 18:45 Current Medications Generic Name Dose Route Start Last Admin Trade Name Freq PRN Reason Stop Dose Admin Alprazolam 0.5 mg 06/01/19 18:57 Xanax - PO Q8H PRN ANXIETY Amlodipine Besylate 2.5 mg 05/20/19 21:00 06/01/19 09:29 Norvasc - PO 2.5 mg DAILY [facility] Administration Docusate Sodium 100 mg 05/29/19 10:00 06/01/19 09:28 Colace - PO Not Given DAILY [facility] Hydromorphone HCl 2 mg 06/01/19 18:57 06/01/19 19:11 Dilaudid - PO 2 mg Q4H PRN Administration PAIN LEVEL 4 - 6 IV Flush 10 ml 05/20/19 16:01 05/30/19 11:56 Johann-Cath Flush IVPUSH 10 ml PRN PRN Administration protocol Magnesium Chloride 64 mg 05/22/19 11:15 06/01/19 10:04 Slow-Mag - PO 64 mg DAILY [facility] Administration Magnesium Hydroxide 30 ml 05/31/19 11:00 Milk Of Magnesia - PO DAILY PRN CONSTIPATION Melatonin 5 mg 05/19/19 23:13 05/29/19 21:53 Melatonin PO 5 mg HS PRN Administration INSOMNIA Metoprolol Succinate 25 mg 05/18/19 20:30 06/01/19 09:28 Toprol Xl - PO 25 mg DAILY [facility] Administration Ondansetron HCl 4 mg 05/31/19 10:58 06/01/19 17:01 Zofran Injection IVPUSH 4 mg Q4H PRN Administration NAUSEA AND/OR VOMITING Pantoprazole Sodium 40 mg 05/18/19 22:00 06/01/19 09:28 Protonix - PO 40 mg BID [facility] Administration Senna 1 tab 05/31/19 11:00 06/01/19 09:29 Senna - PO Not Given BID [facility] Sucralfate 1 gm 05/18/19 22:00 06/01/19 16:32 Carafate Oral Suspension - PO Not Given ACHS [facility] Impression: Metastatic breast ca Malnutrition Pain management Consider palliative care.
[2019-06-01] MEDS: MELATONIN 5 MG TABLETS PO PRN (21:29)
[2019-06-02] MEDS: HYDROmorphone HCL 2 MG TABLET PO PRN ×4 (03:10→21:54)
[2019-06-02] MEDS: SUCRALFATE 1 GM/10 ML UNIT DOSE CUPS PO SCH ×4 (07:03→21:53)
[2019-06-02] MEDS ORDERED: PT OWN MED DRAWER 7, Y5N ONE (08:54)
[2019-06-02] MEDS: amLODIPine BESYLATE 2.5 MG TABLET (FP) PO SCH (09:46)
[2019-06-02] MEDS: metoPROLOL SUCCINATE 25 MG TAB.SR.24H (FP) PO SCH (09:46)
[2019-06-02] MEDS: DOCUSATE SODIUM 100 MG CAPSULE (FP) PO SCH ×2 (09:46→13:29)
[2019-06-02] MEDS: PANTOPRAZOLE 40 MG TABLET PO SCH ×2 (09:46→21:54)
[2019-06-02] MEDS: SENNOSIDES 8.6MG TABLET (FP) PO SCH ×2 (09:47→21:54)
[2019-06-02] MEDS: MAGNESIUM CL 64 MG TABLET.SA PO SCH (09:49)
[2019-06-02] MEDS: SIMETHICONE 80 MG TAB.CHEW (FP) PO PRN ×2 (10:32→21:55)
[2019-06-02] MEDS: ONDANSETRON 4 MG/2 ML VIAL IVPUSH PRN ×2 (13:18→17:15)
[2019-06-02 13:56] LABS: ALBUMIN 2.9 g/dl (3.4-5.0); BILIRUBIN,TOTAL 0.7 mg/dL (0.2-1); BLOOD UREA NITROGEN 11.4 mg/dL (7-18); CALCIUM 9.7 mg/dL (8.5-10.1); CREATININE 0.8 mg/dL (0.55-1.3); POTASSIUM 4.1 mmol/L (3.5-5.1); TOT PROT 6.3 g/dl (6.4-8.2)
--- NOTE | 2019-06-02 14:12 | PN ---
Progress Note, Physician History of Present Illness: Pt seen and examined at bedside. She tolerated a light lunch. - Current Medication List Current Medications: Active Medications Alprazolam (Xanax -) 0.5 mg PO Q8H PRN PRN Reason: ANXIETY Last Admin: 06/01/19 21:29 Dose: 0.5 mg Amlodipine Besylate (Norvasc -) 2.5 mg PO DAILY [facility] Last Admin: 06/02/19 09:46 Dose: 2.5 mg Docusate Sodium (Colace -) 100 mg PO DAILY [facility] Last Admin: 06/02/19 13:29 Dose: 100 mg Dronabinol (Marinol -) 5 mg PO BIDWM [facility] Hydromorphone HCl (Dilaudid -) 2 mg PO Q4H PRN PRN Reason: PAIN LEVEL 4 - 6 Last Admin: 06/02/19 13:18 Dose: 2 mg IV Flush (Johann-Cath Flush) 10 ml IVPUSH PRN PRN PRN Reason: protocol Last Admin: 05/30/19 11:56 Dose: 10 ml Magnesium Chloride (Slow-Mag -) 64 mg PO DAILY [facility] Last Admin: 06/02/19 09:49 Dose: 64 mg Magnesium Hydroxide (Milk Of Magnesia -) 30 ml PO DAILY PRN PRN Reason: CONSTIPATION Melatonin (Melatonin) 5 mg PO HS PRN PRN Reason: INSOMNIA Last Admin: 06/01/19 21:29 Dose: 5 mg Metoprolol Succinate (Toprol Xl -) 25 mg PO DAILY [facility] Last Admin: 06/02/19 09:46 Dose: 25 mg Ondansetron HCl (Zofran Injection) 4 mg IVPUSH Q4H PRN PRN Reason: NAUSEA AND/OR VOMITING Last Admin: 06/02/19 13:18 Dose: 4 mg Pantoprazole Sodium (Protonix -) 40 mg PO BID [facility] Last Admin: 06/02/19 09:46 Dose: 40 mg Senna (Senna -) 1 tab PO BID [facility] Last Admin: 06/02/19 09:47 Dose: Not Given Simethicone (Mylicon -) 80 mg PO QID PRN PRN Reason: GAS Last Admin: 06/02/19 10:32 Dose: 80 mg Sucralfate (Carafate Oral Suspension -) 1 gm PO ACHS [facility] Last Admin: 06/02/19 10:43 Dose: Not Given - Objective Vital Signs: Vital Signs Temperature 98.1 F 06/02/19 10:00 Pulse Rate 89 06/02/19 10:00 Respiratory Rate 18 06/02/19 10:00 Blood Pressure 139/69 06/02/19 10:00 O2 Sat by Pulse Oximetry (%) 99 06/01/19 21:00 Constitutional: Yes: Calm Eyes: Yes: Conjunctiva Clear HENT: Yes: Atraumatic Neck: Yes: Supple Cardiovascular: Yes: S1, S2 Respiratory: Yes: CTA Bilaterally Gastrointestinal: Yes: Soft Edema: No Neurological: Yes: Oriented Psychiatric: Yes: Oriented Labs: CBC, BMP 05/30/19 06:00 06/02/19 11:15 INR, PTT INR 1.13 (0.83-1.09) H 05/22/19 14:14 Problem List - Problems (1) Abnormal liver function tests Code(s): R94.5 - ABNORMAL RESULTS OF LIVER FUNCTION STUDIES (2) Breast cancer, left breast Code(s): C50.912 - MALIGNANT NEOPLASM OF UNSPECIFIED SITE OF LEFT FEMALE BREAST Qualifiers: Breast location: lower inner quadrant of breast Patient sex: female Assessment/Plan Current Medications Generic Name Dose Route Start Last Admin Trade Name Freq PRN Reason Stop Dose Admin Alprazolam 0.5 mg 06/01/19 18:57 06/01/19 21:29 Xanax - PO 0.5 mg Q8H PRN Administration ANXIETY Amlodipine Besylate 2.5 mg 05/20/19 21:00 06/02/19 09:46 Norvasc - PO 2.5 mg DAILY [facility] Administration Docusate Sodium 100 mg 05/29/19 10:00 06/02/19 13:29 Colace - PO 100 mg DAILY [facility] Administration Dronabinol 5 mg 06/02/19 17:30 Marinol - PO BIDWM [facility] Hydromorphone HCl 2 mg 06/01/19 18:57 06/02/19 13:18 Dilaudid - PO 2 mg Q4H PRN Administration PAIN LEVEL 4 - 6 IV Flush 10 ml 05/20/19 16:01 05/30/19 11:56 Johann-Cath Flush IVPUSH 10 ml PRN PRN Administration protocol Magnesium Chloride 64 mg 05/22/19 11:15 06/02/19 09:49 Slow-Mag - PO 64 mg DAILY [facility] Administration Magnesium Hydroxide 30 ml 05/31/19 11:00 Milk Of Magnesia - PO DAILY PRN CONSTIPATION Melatonin 5 mg 05/19/19 23:13 06/01/19 21:29 Melatonin PO 5 mg HS PRN Administration INSOMNIA Metoprolol Succinate 25 mg 05/18/19 20:30 06/02/19 09:46 Toprol Xl - PO 25 mg DAILY [facility] Administration Ondansetron HCl 4 mg 05/31/19 10:58 06/02/19 13:18 Zofran Injection IVPUSH 4 mg Q4H PRN Administration NAUSEA AND/OR VOMITING Pantoprazole Sodium 40 mg 05/18/19 22:00 06/02/19 09:46 Protonix - PO 40 mg BID [facility] Administration Senna 1 tab 05/31/19 11:00 06/02/19 09:47 Senna - PO Not Given BID [facility] Simethicone 80 mg 06/02/19 09:50 06/02/19 10:32 Mylicon - PO 80 mg QID PRN Administration GAS Sucralfate 1 gm 05/18/19 22:00 06/02/19 10:43 Carafate Oral Suspension - PO Not Given ACHS [facility] Impression 1. hyponatremia 2. htn 3. pancytopenia 4. breast cancer 5. hypokalemia 6. hypercalcemia 7. malnutrition Plan - sodium improved - encourage po intake - fluids on hold - monitor lytes - family discussing GOC
[2019-06-02] MEDS: DRONABINOL 5 MG CAPSULE PO SCH (18:03)
[2019-06-02] MEDS ORDERED: FENTANYL PATCH WASTE MC PRN (18:17)
[2019-06-02] MEDS ORDERED: ONDANSETRON 4 MG/2 ML VIAL IVPB PRN (18:18)
[2019-06-02] MEDS ORDERED: PROCHLORPERAZINE INJECTION 10 MG/2 ML VIAL IVPB PRN (18:18)
[2019-06-02] MEDS: fentaNYL 12mcg/hr PATCH.TD72 TD SCH (18:41)
[2019-06-02] MEDS: ALPRAZolam 0.25 MG TABLET PO PRN (21:55)
--- NOTE | 2019-06-03 05:58 | PN ---
Progress Note (short form) - Note Progress Note: Patient seen and examined Weak, tired AFVSS Cor: RSR, No murmurs, No gallops Lungs: decreased at bases Abd: Soft, Normal bowel sounds, No organomegaly Ext:No significant edema Labs/Meds reviewed A/P Metastatic breast ca Extensive osseous mets Hypercalcemia--- s/p zometa 05/20/19 Severe Malnutrition Nausea and emesis MRI brain --- osseous mets involving the skull with pachymeningeal thickening at the site of osseous mets. No intraaxial mets/vasogenic edema CSF cytology is negative Multiple liver mets filure to thrive s/p RT to rib mets added fentanyl patch to dilaudid/ zofran and compazine prn Family considering hospice arrangements
[2019-06-03] MEDS: SUCRALFATE 1 GM/10 ML UNIT DOSE CUPS PO SCH ×4 (06:16→21:34)
[2019-06-03] MEDS: HYDROmorphone HCL 2 MG TABLET PO PRN ×2 (06:30→19:02)
[2019-06-03] MEDS: MAGNESIUM CL 64 MG TABLET.SA PO SCH (10:18)
[2019-06-03] MEDS: DRONABINOL 5 MG CAPSULE PO SCH ×2 (10:18→18:58)
[2019-06-03] MEDS: SENNOSIDES 8.6MG TABLET (FP) PO SCH ×2 (10:19→21:34)
[2019-06-03] MEDS: PANTOPRAZOLE 40 MG TABLET PO SCH ×2 (10:19→21:34)
[2019-06-03] MEDS: SIMETHICONE 80 MG TAB.CHEW (FP) PO PRN (10:19)
[2019-06-03] MEDS: DOCUSATE SODIUM 100 MG CAPSULE (FP) PO SCH (10:19)
[2019-06-03] MEDS: amLODIPine BESYLATE 2.5 MG TABLET (FP) PO SCH (10:22)
[2019-06-03] MEDS: metoPROLOL SUCCINATE 25 MG TAB.SR.24H (FP) PO SCH (10:22)
[2019-06-03] MEDS: ALPRAZolam 0.25 MG TABLET PO PRN ×2 (10:24→21:57)
--- NOTE | 2019-06-03 14:53 | PN ---
Progress Note (short form) - Note Progress Note: Patient seen and examined Less nauseated Pain improved on fentanyl Family at bedside Last Vital Signs Temp Pulse Resp BP Pulse Ox 98.1 F 80 20 105/49 L 97 06/03/19 13:45 06/03/19 13:45 06/03/19 13:45 06/03/19 13:45 06/02/19 21:00 HEENT: GLADYS, EOM Intact Cor: RSR, No murmurs, No gallops Lungs:Diminished breath sounds bilaterally Abd: Soft, Normal bowel sounds, No organomegaly Ext:LE edema Skin: No rashes, Integument intact CBC, BMP 05/30/19 06:00 06/02/19 11:15 Current Medications Generic Name Dose Route Start Last Admin Trade Name Freq PRN Reason Stop Dose Admin Alprazolam 0.5 mg 06/01/19 18:57 06/03/19 10:24 Xanax - PO 0.5 mg Q8H PRN Administration ANXIETY Amlodipine Besylate 2.5 mg 05/20/19 21:00 06/03/19 10:22 Norvasc - PO 2.5 mg DAILY [facility] Administration Docusate Sodium 100 mg 05/29/19 10:00 06/03/19 10:19 Colace - PO 100 mg DAILY [facility] Administration Dronabinol 5 mg 06/02/19 17:30 06/03/19 10:18 Marinol - PO 5 mg BIDWM [facility] Administration Fentanyl 1 patch 06/02/19 18:30 06/02/19 18:41 Duragesic 12mcg Patch - TD 06/09/19 18:17 1 patch Q72H [facility] Administration Hydromorphone HCl 2 mg 06/01/19 18:57 06/03/19 06:30 Dilaudid - PO 2 mg Q4H PRN Administration PAIN LEVEL 4 - 6 IV Flush 10 ml 05/20/19 16:01 05/30/19 11:56 Johann-Cath Flush IVPUSH 10 ml PRN PRN Administration protocol Magnesium Chloride 64 mg 05/22/19 11:15 06/03/19 10:18 Slow-Mag - PO 64 mg DAILY [facility] Administration Magnesium Hydroxide 30 ml 05/31/19 11:00 Milk Of Magnesia - PO DAILY PRN CONSTIPATION Melatonin 5 mg 05/19/19 23:13 06/01/19 21:29 Melatonin PO 5 mg HS PRN Administration INSOMNIA Metoprolol Succinate 25 mg 05/18/19 20:30 06/03/19 10:22 Toprol Xl - PO 25 mg DAILY [facility] Administration Miscellaneous 1 each 06/02/19 18:17 Duragesic Patch Waste MC PRN PRN PAIN Ondansetron HCl 8 mg 06/02/19 18:18 06/03/19 12:18 Zofran Injection IVPB 8 mg Q8H PRN Administration NAUSEA Pantoprazole Sodium 40 mg 05/18/19 22:00 06/03/19 10:19 Protonix - PO 40 mg BID [facility] Administration Prochlorperazine Edisylate 10 mg 06/02/19 18:18 Compazine Injection - IVPB Q8H PRN NAUSEA AND/OR VOMITING Senna 1 tab 05/31/19 11:00 06/03/19 10:19 Senna - PO 1 tab BID [facility] Administration Simethicone 80 mg 06/02/19 09:50 06/03/19 10:19 Mylicon - PO 80 mg QID PRN Administration GAS Sucralfate 1 gm 05/18/19 22:00 06/03/19 12:19 Carafate Oral Suspension - PO Not Given ACHS [facility] Impression: Metastatic breast ca Intractable nausea and emesis Liver mets/bone mets/ Pain management Plan : add tamoxifen
--- NOTE | 2019-06-03 16:09 | PN ---
Progress Note, Physician History of Present Illness: Pt seen and examined at bedside. She is awake and appears comfortable. Her po intake is improved. - Current Medication List Current Medications: Active Medications Alprazolam (Xanax -) 0.5 mg PO Q8H PRN PRN Reason: ANXIETY Last Admin: 06/03/19 10:24 Dose: 0.5 mg Amlodipine Besylate (Norvasc -) 2.5 mg PO DAILY [facility] Last Admin: 06/03/19 10:22 Dose: 2.5 mg Docusate Sodium (Colace -) 100 mg PO DAILY [facility] Last Admin: 06/03/19 10:19 Dose: 100 mg Dronabinol (Marinol -) 5 mg PO BIDWM [facility] Last Admin: 06/03/19 10:18 Dose: 5 mg Fentanyl (Duragesic 12mcg Patch -) 1 patch TD Q72H [facility] Stop: 06/09/19 18:17 Last Admin: 06/02/19 18:41 Dose: 1 patch Hydromorphone HCl (Dilaudid -) 2 mg PO Q4H PRN PRN Reason: PAIN LEVEL 4 - 6 Last Admin: 06/03/19 06:30 Dose: 2 mg IV Flush (Johann-Cath Flush) 10 ml IVPUSH PRN PRN PRN Reason: protocol Last Admin: 05/30/19 11:56 Dose: 10 ml Magnesium Chloride (Slow-Mag -) 64 mg PO DAILY [facility] Last Admin: 06/03/19 10:18 Dose: 64 mg Magnesium Hydroxide (Milk Of Magnesia -) 30 ml PO DAILY PRN PRN Reason: CONSTIPATION Melatonin (Melatonin) 5 mg PO HS PRN PRN Reason: INSOMNIA Last Admin: 06/01/19 21:29 Dose: 5 mg Metoprolol Succinate (Toprol Xl -) 25 mg PO DAILY [facility] Last Admin: 06/03/19 10:22 Dose: 25 mg Miscellaneous (Duragesic Patch Waste) 1 each MC PRN PRN PRN Reason: PAIN Ondansetron HCl (Zofran Injection) 8 mg IVPB Q8H PRN PRN Reason: NAUSEA Last Admin: 06/03/19 12:18 Dose: 8 mg Pantoprazole Sodium (Protonix -) 40 mg PO BID [facility] Last Admin: 06/03/19 10:19 Dose: 40 mg Prochlorperazine Edisylate (Compazine Injection -) 10 mg IVPB Q8H PRN PRN Reason: NAUSEA AND/OR VOMITING Senna (Senna -) 1 tab PO BID [facility] Last Admin: 06/03/19 10:19 Dose: 1 tab Simethicone (Mylicon -) 80 mg PO QID PRN PRN Reason: GAS Last Admin: 06/03/19 10:19 Dose: 80 mg Sucralfate (Carafate Oral Suspension -) 1 gm PO ACHS [facility] Last Admin: 06/03/19 12:19 Dose: Not Given Tamoxifen Citrate (Tamoxifen Citrate) 20 mg PO DAILY [facility] - Objective Vital Signs: Vital Signs Temperature 98.1 F 06/03/19 13:45 Pulse Rate 80 06/03/19 13:45 Respiratory Rate 20 06/03/19 13:45 Blood Pressure 105/49 L 06/03/19 13:45 O2 Sat by Pulse Oximetry (%) 97 06/03/19 09:00 Constitutional: Yes: Calm Eyes: Yes: Conjunctiva Clear HENT: Yes: Atraumatic Neck: Yes: Supple Cardiovascular: Yes: S1, S2 Respiratory: Yes: CTA Bilaterally Gastrointestinal: Yes: Soft Genitourinary: Yes: WNL Musculoskeletal: Yes: WNL Edema: No Neurological: Yes: Oriented Psychiatric: Yes: Oriented Labs: CBC, BMP 05/30/19 06:00 06/02/19 11:15 INR, PTT INR 1.13 (0.83-1.09) H 05/22/19 14:14 Problem List - Problems (1) Abnormal liver function tests Code(s): R94.5 - ABNORMAL RESULTS OF LIVER FUNCTION STUDIES (2) Breast cancer, left breast Code(s): C50.912 - MALIGNANT NEOPLASM OF UNSPECIFIED SITE OF LEFT FEMALE BREAST Qualifiers: Breast location: lower inner quadrant of breast Patient sex: female Assessment/Plan Current Medications Generic Name Dose Route Start Last Admin Trade Name Freq PRN Reason Stop Dose Admin Alprazolam 0.5 mg 06/01/19 18:57 06/03/19 10:24 Xanax - PO 0.5 mg Q8H PRN Administration ANXIETY Amlodipine Besylate 2.5 mg 05/20/19 21:00 06/03/19 10:22 Norvasc - PO 2.5 mg DAILY [facility] Administration Docusate Sodium 100 mg 05/29/19 10:00 06/03/19 10:19 Colace - PO 100 mg DAILY [facility] Administration Dronabinol 5 mg 06/02/19 17:30 06/03/19 10:18 Marinol - PO 5 mg BIDWM [facility] Administration Fentanyl 1 patch 06/02/19 18:30 06/02/19 18:41 Duragesic 12mcg Patch - TD 06/09/19 18:17 1 patch Q72H [facility] Administration Hydromorphone HCl 2 mg 06/01/19 18:57 06/03/19 06:30 Dilaudid - PO 2 mg Q4H PRN Administration PAIN LEVEL 4 - 6 IV Flush 10 ml 05/20/19 16:01 05/30/19 11:56 Johann-Cath Flush IVPUSH 10 ml PRN PRN Administration protocol Magnesium Chloride 64 mg 05/22/19 11:15 06/03/19 10:18 Slow-Mag - PO 64 mg DAILY [facility] Administration Magnesium Hydroxide 30 ml 05/31/19 11:00 Milk Of Magnesia - PO DAILY PRN CONSTIPATION Melatonin 5 mg 05/19/19 23:13 06/01/19 21:29 Melatonin PO 5 mg HS PRN Administration INSOMNIA Metoprolol Succinate 25 mg 05/18/19 20:30 06/03/19 10:22 Toprol Xl - PO 25 mg DAILY [facility] Administration Miscellaneous 1 each 06/02/19 18:17 Duragesic Patch Waste MC PRN PRN PAIN Ondansetron HCl 8 mg 06/02/19 18:18 06/03/19 12:18 Zofran Injection IVPB 8 mg Q8H PRN Administration NAUSEA Pantoprazole Sodium 40 mg 05/18/19 22:00 06/03/19 10:19 Protonix - PO 40 mg BID [facility] Administration Prochlorperazine Edisylate 10 mg 06/02/19 18:18 Compazine Injection - IVPB Q8H PRN NAUSEA AND/OR VOMITING Senna 1 tab 05/31/19 11:00 06/03/19 10:19 Senna - PO 1 tab BID [facility] Administration Simethicone 80 mg 06/02/19 09:50 06/03/19 10:19 Mylicon - PO 80 mg QID PRN Administration GAS Sucralfate 1 gm 05/18/19 22:00 06/03/19 12:19 Carafate Oral Suspension - PO Not Given ACHS [facility] Tamoxifen Citrate 20 mg 06/03/19 16:00 Tamoxifen Citrate PO DAILY [facility] Impression 1. hyponatremia 2. htn 3. pancytopenia 4. breast cancer 5. hypokalemia 6. hypercalcemia 7. malnutrition Plan - monitor lytes - encourage po intake - will hold off fluids for now - will follow PRN - avoid dehydration
[2019-06-03] MEDS: TAMOXIFEN CITRATE 10 MG TABLET PO SCH (18:58)
[2019-06-03] MEDS: MELATONIN 5 MG TABLETS PO PRN (21:38)
[2019-06-04] MEDS: SUCRALFATE 1 GM/10 ML UNIT DOSE CUPS PO SCH ×4 (06:09→21:26)
[2019-06-04] MEDS: HYDROmorphone HCL 2 MG TABLET PO PRN (06:11)
[2019-06-04 07:40] LABS: BASO % 1.3 % (0-2.0); HEMATOCRIT 23.2 % (32.4-45.2); LYMPH % 18.6 % (8-40); MCH 28.4 pg (25.7-33.7); MCHC 34.6 g/dl (32.0-36.0); MEAN PLT VOLUME 7.1 fl (7.5-11.1); MONO % 11.6 % (3.8-10.2); NEUT % 65.5 % (42.8-82.8); PLATELET COUNT 161 K/MM3 (134-434); RBC 2.83 M/mm3 (3.60-5.2); RDW 18.7 % (11.6-15.6); WHITE BLOOD COUNT 4.7 K/mm3 (4.0-10.0)
[2019-06-04 08:14] LABS: ALBUMIN 2.6 g/dl (3.4-5.0); BILIRUBIN,TOTAL 0.8 mg/dL (0.2-1); BLOOD UREA NITROGEN 12.8 mg/dL (7-18); CALCIUM 9.1 mg/dL (8.5-10.1); CREATININE 0.7 mg/dL (0.55-1.3); MAGNESIUM 1.5 mg/dL (1.8-2.4); POTASSIUM 3.8 mmol/L (3.5-5.1); TOT PROT 5.6 g/dl (6.4-8.2)
[2019-06-04] MEDS: MAGNESIUM CL 64 MG TABLET.SA PO SCH (09:39)
[2019-06-04] MEDS: DRONABINOL 5 MG CAPSULE PO SCH ×2 (09:39→18:00)
[2019-06-04] MEDS: DOCUSATE SODIUM 100 MG CAPSULE (FP) PO SCH (09:39)
[2019-06-04] MEDS: SENNOSIDES 8.6MG TABLET (FP) PO SCH ×2 (09:40→21:25)
[2019-06-04] MEDS: SIMETHICONE 80 MG TAB.CHEW (FP) PO PRN (09:40)
[2019-06-04] MEDS: PANTOPRAZOLE 40 MG TABLET PO SCH ×2 (09:40→21:25)
[2019-06-04] MEDS: amLODIPine BESYLATE 2.5 MG TABLET (FP) PO SCH (09:40)
[2019-06-04] MEDS: metoPROLOL SUCCINATE 25 MG TAB.SR.24H (FP) PO SCH (09:40)
[2019-06-04] MEDS: TAMOXIFEN CITRATE 10 MG TABLET PO SCH (09:40)
[2019-06-04 10:47] LABS: ANISOCYTOSIS 2+; MACROCYTOSIS 0; PLATELET ESTIMATE DECREASED
--- NOTE | 2019-06-04 14:43 | PN ---
Progress Note (short form) - Note Progress Note: Seen in follow up. No new complaints. Surrounded by family. Inpatient Meds reviewed. Current Medications Alprazolam (Xanax -) 0.5 mg PO Q8H PRN PRN Reason: ANXIETY Last Admin: 06/03/19 21:57 Dose: 0.5 mg Amlodipine Besylate (Norvasc -) 2.5 mg PO DAILY [facility] Last Admin: 06/04/19 09:40 Dose: 2.5 mg Docusate Sodium (Colace -) 100 mg PO DAILY [facility] Last Admin: 06/04/19 09:39 Dose: 100 mg Dronabinol (Marinol -) 5 mg PO BIDWM [facility] Last Admin: 06/04/19 09:39 Dose: 5 mg Fentanyl (Duragesic 12mcg Patch -) 1 patch TD Q72H [facility] Stop: 06/09/19 18:17 Last Admin: 06/02/19 18:41 Dose: 1 patch Hydromorphone HCl (Dilaudid -) 2 mg PO Q4H PRN PRN Reason: PAIN LEVEL 4 - 6 Last Admin: 06/04/19 06:11 Dose: 2 mg IV Flush (Johann-Cath Flush) 10 ml IVPUSH PRN PRN PRN Reason: protocol Last Admin: 05/30/19 11:56 Dose: 10 ml Magnesium Chloride (Slow-Mag -) 64 mg PO DAILY [facility] Last Admin: 06/04/19 09:39 Dose: 64 mg Magnesium Hydroxide (Milk Of Magnesia -) 30 ml PO DAILY PRN PRN Reason: CONSTIPATION Melatonin (Melatonin) 5 mg PO HS PRN PRN Reason: INSOMNIA Last Admin: 06/03/19 21:38 Dose: 5 mg Metoprolol Succinate (Toprol Xl -) 25 mg PO DAILY [facility] Last Admin: 06/04/19 09:40 Dose: 25 mg Miscellaneous (Duragesic Patch Waste) 1 each MC PRN PRN PRN Reason: PAIN Ondansetron HCl (Zofran Injection) 8 mg IVPB Q8H PRN PRN Reason: NAUSEA Last Admin: 06/03/19 12:18 Dose: 8 mg Pantoprazole Sodium (Protonix -) 40 mg PO BID [facility] Last Admin: 06/04/19 09:40 Dose: 40 mg Prochlorperazine Edisylate (Compazine Injection -) 10 mg IVPB Q8H PRN PRN Reason: NAUSEA AND/OR VOMITING Senna (Senna -) 1 tab PO BID [facility] Last Admin: 06/04/19 09:40 Dose: 1 tab Simethicone (Mylicon -) 80 mg PO QID PRN PRN Reason: GAS Last Admin: 06/04/19 09:40 Dose: 80 mg Sucralfate (Carafate Oral Suspension -) 1 gm PO ACHS [facility] Last Admin: 06/04/19 14:09 Dose: Not Given Tamoxifen Citrate (Tamoxifen Citrate) 20 mg PO DAILY [facility] Last Admin: 06/04/19 09:40 Dose: 20 mg On Examination: Last Vital Signs Temp Pulse Resp BP Pulse Ox 98 F 92 H 20 147/74 97 06/04/19 05:56 06/04/19 05:56 06/04/19 05:56 06/04/19 05:56 06/03/19 21:00 General: In no acute distress, Extremities: No pallor or icterus. No pedal edema. No palpable lymphadenopathy. CVS: S1, S2, regular, no gallop or murmur. Chest: breathing comfortably Abdomen: soft, non-distended Neuro: Alert, oriented, non-focal. Labs: CBC, BMP 06/04/19 07:00 06/04/19 07:00 Assessment. 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 Will be discharged to hospice. Continue opioid analgesia. 5HT antagonist for nausea - will change to oral or SL formulation. Tamoxifen.
[2019-06-04] MEDS: ONDANSETRON *ODT* 4 MG TABLET SL PRN (18:00)
[2019-06-04] MEDS: MELATONIN 5 MG TABLETS PO PRN (21:25)
[2019-06-05] MEDS: ONDANSETRON *ODT* 4 MG TABLET SL PRN (05:55)
[2019-06-05] MEDS: SUCRALFATE 1 GM/10 ML UNIT DOSE CUPS PO SCH ×4 (06:00→21:34)
[2019-06-05] MEDS: HYDROmorphone HCL 2 MG TABLET PO PRN (08:58)
[2019-06-05] MEDS: DRONABINOL 5 MG CAPSULE PO SCH ×2 (08:58→17:33)
[2019-06-05] MEDS: TAMOXIFEN CITRATE 10 MG TABLET PO SCH (09:00)
[2019-06-05] MEDS: ALPRAZolam 1 MG TABLET PO PRN ×2 (09:00→21:34)
[2019-06-05] MEDS: PANTOPRAZOLE 40 MG TABLET PO SCH ×2 (09:00→21:34)
[2019-06-05] MEDS: MAGNESIUM CL 64 MG TABLET.SA PO SCH (09:01)
[2019-06-05] MEDS: SIMETHICONE 80 MG TAB.CHEW (FP) PO PRN (09:01)
[2019-06-05] MEDS: DOCUSATE SODIUM 100 MG CAPSULE (FP) PO SCH (09:02)
[2019-06-05] MEDS: SENNOSIDES 8.6MG TABLET (FP) PO SCH ×2 (09:02→21:34)
[2019-06-05] MEDS: amLODIPine BESYLATE 2.5 MG TABLET (FP) PO SCH (09:09)
[2019-06-05] MEDS: metoPROLOL SUCCINATE 25 MG TAB.SR.24H (FP) PO SCH (09:09)
[2019-06-05] MEDS ORDERED: ONDANSETRON *ODT* 4 MG TABLET SL PRN (12:40)
--- NOTE | 2019-06-05 13:13 | PN ---
Progress Note (short form) - Note Progress Note: Seen in follow up. No new complaints. Surrounded by family. BDZ and Dilaudid 'fell off' last night. Was anxious overnight. Episode emesis this morning. Inpatient Meds reviewed. Current Medications Alprazolam (Xanax) 0.5 mg PO Q8H PRN PRN Reason: ANXIETY Last Admin: 06/05/19 09:00 Dose: 0.5 mg Amlodipine Besylate (Norvasc -) 2.5 mg PO DAILY [facility] Last Admin: 06/05/19 09:09 Dose: 2.5 mg Docusate Sodium (Colace -) 100 mg PO DAILY [facility] Last Admin: 06/05/19 09:02 Dose: Not Given Dronabinol (Marinol -) 5 mg PO BIDWM [facility] Last Admin: 06/05/19 08:58 Dose: 5 mg Fentanyl (Duragesic 12mcg Patch -) 1 patch TD Q72H [facility] Stop: 06/09/19 18:17 Last Admin: 06/02/19 18:41 Dose: 1 patch Hydromorphone HCl (Dilaudid -) 2 mg PO Q4H PRN PRN Reason: PAIN LEVEL 6-10 Last Admin: 06/05/19 08:58 Dose: 2 mg IV Flush (Johann-Cath Flush) 10 ml IVPUSH PRN PRN PRN Reason: protocol Last Admin: 05/30/19 11:56 Dose: 10 ml Magnesium Chloride (Slow-Mag -) 64 mg PO DAILY [facility] Last Admin: 06/05/19 09:01 Dose: 64 mg Magnesium Hydroxide (Milk Of Magnesia -) 30 ml PO DAILY PRN PRN Reason: CONSTIPATION Melatonin (Melatonin) 5 mg PO HS PRN PRN Reason: INSOMNIA Last Admin: 06/04/19 21:25 Dose: 5 mg Metoprolol Succinate (Toprol Xl -) 25 mg PO DAILY [facility] Last Admin: 06/05/19 09:09 Dose: 25 mg Miscellaneous (Duragesic Patch Waste) 1 each MC PRN PRN PRN Reason: PAIN Ondansetron HCl (Zofran Odt -) 8 mg SL Q6H PRN PRN Reason: NAUSEA AND/OR VOMITING Pantoprazole Sodium (Protonix -) 40 mg PO BID [facility] Last Admin: 06/05/19 09:00 Dose: 40 mg Prochlorperazine Edisylate (Compazine Injection -) 10 mg IVPB Q8H PRN PRN Reason: NAUSEA AND/OR VOMITING Senna (Senna -) 1 tab PO BID [facility] Last Admin: 06/05/19 09:02 Dose: Not Given Simethicone (Mylicon -) 80 mg PO QID PRN PRN Reason: GAS Last Admin: 06/05/19 09:01 Dose: 80 mg Sucralfate (Carafate Oral Suspension -) 1 gm PO ACHS [facility] Last Admin: 06/05/19 12:09 Dose: Not Given Tamoxifen Citrate (Tamoxifen Citrate) 20 mg PO DAILY [facility] Last Admin: 06/05/19 09:00 Dose: 20 mg On Examination: Last Vital Signs Temp Pulse Resp BP Pulse Ox 98.5 F 103 H 18 125/65 97 06/05/19 10:00 06/05/19 10:00 06/05/19 10:00 06/05/19 10:00 06/05/19 09:00 General: In no acute distress, Extremities: No pallor or icterus. No pedal edema. No palpable lymphadenopathy. CVS: S1, S2, regular, no gallop or murmur. Chest: breathing comfortably Abdomen: soft, non-distended Neuro: Alert, oriented, non-focal. Labs: CBC, BMP 06/04/19 07:00 06/04/19 07:00 Assessment. 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 Will be discharged to hospice. Continue opioid analgesia. 5HT antagonist for nausea - will change to oral or SL formulation. Increase dose - had breakthrough emesis this am (Zofren 8mg SL PRN) Labs in am - to ensure maintaining hydration. Tamoxifen.
[2019-06-05] MEDS: fentaNYL 12mcg/hr PATCH.TD72 TD SCH (17:32)
[2019-06-05] MEDS: MELATONIN 5 MG TABLETS PO PRN (21:34)
[2019-06-06] MEDS: PORTA CATH FLUSH 10 ML IVPUSH PRN (05:58)
[2019-06-06 07:11] LABS: BASO % 1.1 % (0-2.0); HEMATOCRIT 22.5 % (32.4-45.2); HEMOGLOBIN 7.6 GM/dL (10.7-15.3); LYMPH % 20.7 % (8-40); MCH 28.1 pg (25.7-33.7); MCHC 33.7 g/dl (32.0-36.0); MEAN CELL VOLUME 83.5 fl (80-96); MEAN PLT VOLUME 7.5 fl (7.5-11.1); MONO % 9.8 % (3.8-10.2); NEUT % 66.4 % (42.8-82.8); PLATELET COUNT 141 K/MM3 (134-434); RBC 2.69 M/mm3 (3.60-5.2); RDW 19.5 % (11.6-15.6); WHITE BLOOD COUNT 4.2 K/mm3 (4.0-10.0)
[2019-06-06 07:39] LABS: BLOOD UREA NITROGEN 10.9 mg/dL (7-18); CALCIUM 9.1 mg/dL (8.5-10.1); CREATININE 0.7 mg/dL (0.55-1.3); POTASSIUM 3.6 mmol/L (3.5-5.1)
[2019-06-06] MEDS: SUCRALFATE 1 GM/10 ML UNIT DOSE CUPS PO SCH ×4 (08:18→21:44)
[2019-06-06] MEDS: DRONABINOL 5 MG CAPSULE PO SCH ×2 (09:25→17:57)
[2019-06-06] MEDS: DOCUSATE SODIUM 100 MG CAPSULE (FP) PO SCH (09:53)
[2019-06-06] MEDS: metoPROLOL SUCCINATE 25 MG TAB.SR.24H (FP) PO SCH (09:54)
[2019-06-06] MEDS: amLODIPine BESYLATE 2.5 MG TABLET (FP) PO SCH (09:55)
[2019-06-06] MEDS: PANTOPRAZOLE 40 MG TABLET PO SCH ×2 (09:56→21:53)
[2019-06-06] MEDS: SENNOSIDES 8.6MG TABLET (FP) PO SCH ×2 (09:56→21:53)
[2019-06-06] MEDS ORDERED: PT OWN MED DRAWER 7, Y5N ONE (10:02)
[2019-06-06] MEDS: HYDROmorphone HCL 2 MG TABLET PO PRN ×2 (10:11→22:00)
--- NOTE | 2019-06-06 10:31 | PN ---
Progress Note (short form) - Note Progress Note: Patient seen and examined Pain still an issue Emesis yesterday , not today as yet Last Vital Signs Temp Pulse Resp BP Pulse Ox 98 F 89 18 130/66 97 06/06/19 10:00 06/06/19 10:00 06/06/19 10:00 06/06/19 10:00 06/06/19 09:00 HEENT: GLADYS, EOM Intact Oropharynx: No thrush, No mucositis Breasts: Without masses Cor: RSR, No murmurs, No gallops Lungs: diminished breath sounds and poor inspiratory effort Abd: Soft, Normal bowel sounds, No organomegaly Ext:No significant edema( L>R) Skin: No rashes, Integument intact CBC, BMP 06/06/19 05:38 06/06/19 05:38 Current Medications Generic Name Dose Route Start Last Admin Trade Name Freq PRN Reason Stop Dose Admin Alprazolam 0.5 mg 06/05/19 08:16 06/05/19 21:34 Xanax PO 0.5 mg Q8H PRN Administration ANXIETY Amlodipine Besylate 2.5 mg 05/20/19 21:00 06/06/19 09:55 Norvasc - PO 2.5 mg DAILY [facility] Administration Docusate Sodium 100 mg 05/29/19 10:00 06/06/19 09:53 Colace - PO Not Given DAILY [facility] Dronabinol 5 mg 06/02/19 17:30 06/06/19 09:25 Marinol - PO Not Given BIDWM [facility] Fentanyl 1 patch 06/02/19 18:30 06/05/19 17:32 Duragesic 12mcg Patch - TD 06/09/19 18:17 1 patch Q72H [facility] Administration Hydromorphone HCl 2 mg 06/05/19 08:17 06/06/19 10:11 Dilaudid - PO 2 mg Q4H PRN Administration PAIN LEVEL 6-10 IV Flush 10 ml 05/20/19 16:01 06/06/19 05:58 Johann-Cath Flush IVPUSH 10 ml PRN PRN Administration protocol Magnesium Chloride 64 mg 05/22/19 11:15 06/05/19 09:01 Slow-Mag - PO 64 mg DAILY [facility] Administration Magnesium Hydroxide 30 ml 05/31/19 11:00 Milk Of Magnesia - PO DAILY PRN CONSTIPATION Melatonin 5 mg 05/19/19 23:13 06/05/19 21:34 Melatonin PO 5 mg HS PRN Administration INSOMNIA Metoprolol Succinate 25 mg 05/18/19 20:30 06/06/19 09:54 Toprol Xl - PO 25 mg DAILY [facility] Administration Miscellaneous 1 each 06/02/19 18:17 06/05/19 19:36 Duragesic Patch Waste MC 1 each PRN PRN Administration PAIN Ondansetron HCl 8 mg 06/05/19 12:40 Zofran Odt - SL Q6H PRN NAUSEA AND/OR VOMITING Pantoprazole Sodium 40 mg 05/18/19 22:00 06/06/19 09:56 Protonix - PO Not Given BID [facility] Prochlorperazine Edisylate 10 mg 06/02/19 18:18 Compazine Injection - IVPB Q8H PRN NAUSEA AND/OR VOMITING Senna 1 tab 05/31/19 11:00 06/06/19 09:56 Senna - PO Not Given BID [facility] Simethicone 80 mg 06/02/19 09:50 06/05/19 09:01 Mylicon - PO 80 mg QID PRN Administration GAS Sucralfate 1 gm 05/18/19 22:00 06/06/19 08:18 Carafate Oral Suspension - PO Not Given ACHS [facility] Tamoxifen Citrate 20 mg 06/03/19 16:00 06/05/19 09:00 Tamoxifen Citrate PO 20 mg DAILY [facility] Administration Impression: Metastatic breast canceer Bone mets Malnutrition pain management Anemia Plan: Tamoxifen Transfuse packed cells Increase Fentanyl to 25 ug.
[2019-06-06] MEDS ORDERED: FENTANYL PATCH WASTE TD PRN (10:34)
[2019-06-06] MEDS ORDERED: fentaNYL 25mcg/hr PATCH.TD72 TD SCH (10:45)
[2019-06-06] MEDS: MAGNESIUM CL 64 MG TABLET.SA PO SCH (12:27)
[2019-06-06] MEDS: TAMOXIFEN CITRATE 10 MG TABLET PO SCH (12:27)
[2019-06-06 13:14] LABS: ANISOCYTOSIS 1+; MACROCYTOSIS 0; PLATELET ESTIMATE DECREASED
--- NOTE | 2019-06-06 16:35 | PN ---
Progress Note, Physician History of Present Illness: Pt seen and examined at bedside. She is awake and alert. She feels that her appetite is improved. - Current Medication List Current Medications: Active Medications Alprazolam (Xanax) 0.5 mg PO Q8H PRN PRN Reason: ANXIETY Last Admin: 06/05/19 21:34 Dose: 0.5 mg Amlodipine Besylate (Norvasc -) 2.5 mg PO DAILY [facility] Last Admin: 06/06/19 09:55 Dose: 2.5 mg Docusate Sodium (Colace -) 100 mg PO DAILY [facility] Last Admin: 06/06/19 09:53 Dose: Not Given Dronabinol (Marinol -) 5 mg PO BIDWM [facility] Last Admin: 06/06/19 09:25 Dose: Not Given Fentanyl (Duragesic 25mcg Patch -) 1 patch TD Q72H [facility] Stop: 06/13/19 10:34 Hydromorphone HCl (Dilaudid -) 2 mg PO Q4H PRN PRN Reason: PAIN LEVEL 6-10 Last Admin: 06/06/19 10:11 Dose: 2 mg IV Flush (Johann-Cath Flush) 10 ml IVPUSH PRN PRN PRN Reason: protocol Last Admin: 06/06/19 05:58 Dose: 10 ml Magnesium Chloride (Slow-Mag -) 64 mg PO DAILY [facility] Last Admin: 06/06/19 12:27 Dose: 64 mg Magnesium Hydroxide (Milk Of Magnesia -) 30 ml PO DAILY PRN PRN Reason: CONSTIPATION Melatonin (Melatonin) 5 mg PO HS PRN PRN Reason: INSOMNIA Last Admin: 06/05/19 21:34 Dose: 5 mg Metoprolol Succinate (Toprol Xl -) 25 mg PO DAILY [facility] Last Admin: 06/06/19 09:54 Dose: 25 mg Miscellaneous (Duragesic Patch Waste) 1 each TD PRN PRN PRN Reason: PAIN Ondansetron HCl (Zofran Odt -) 8 mg SL Q6H PRN PRN Reason: NAUSEA AND/OR VOMITING Pantoprazole Sodium (Protonix -) 40 mg PO BID [facility] Last Admin: 06/06/19 09:56 Dose: Not Given Prochlorperazine Edisylate (Compazine Injection -) 10 mg IVPB Q8H PRN PRN Reason: NAUSEA AND/OR VOMITING Senna (Senna -) 1 tab PO BID [facility] Last Admin: 06/06/19 09:56 Dose: Not Given Simethicone (Mylicon -) 80 mg PO QID PRN PRN Reason: GAS Last Admin: 06/05/19 09:01 Dose: 80 mg Sucralfate (Carafate Oral Suspension -) 1 gm PO ACHS [facility] Last Admin: 06/06/19 12:32 Dose: Not Given Tamoxifen Citrate (Tamoxifen Citrate) 20 mg PO DAILY [facility] Last Admin: 06/06/19 12:27 Dose: 20 mg - Objective Vital Signs: Vital Signs Temperature 98.9 F 06/06/19 14:44 Pulse Rate 84 06/06/19 14:44 Respiratory Rate 18 06/06/19 14:44 Blood Pressure 119/59 L 06/06/19 14:44 O2 Sat by Pulse Oximetry (%) 97 06/06/19 09:00 Constitutional: Yes: Calm Eyes: Yes: Conjunctiva Clear HENT: Yes: Atraumatic Neck: Yes: Supple Cardiovascular: Yes: S1, S2 Respiratory: Yes: CTA Bilaterally Gastrointestinal: Yes: Soft Genitourinary: Yes: WNL Musculoskeletal: Yes: WNL Edema: No Neurological: Yes: Oriented Psychiatric: Yes: Oriented Labs: CBC, BMP 06/06/19 05:38 06/06/19 05:38 INR, PTT INR 1.13 (0.83-1.09) H 05/22/19 14:14 Problem List - Problems (1) Abnormal liver function tests Code(s): R94.5 - ABNORMAL RESULTS OF LIVER FUNCTION STUDIES (2) Breast cancer, left breast Code(s): C50.912 - MALIGNANT NEOPLASM OF UNSPECIFIED SITE OF LEFT FEMALE BREAST Qualifiers: Breast location: lower inner quadrant of breast Patient sex: female Assessment/Plan Current Medications Generic Name Dose Route Start Last Admin Trade Name Freq PRN Reason Stop Dose Admin Alprazolam 0.5 mg 06/05/19 08:16 06/05/19 21:34 Xanax PO 0.5 mg Q8H PRN Administration ANXIETY Amlodipine Besylate 2.5 mg 05/20/19 21:00 06/06/19 09:55 Norvasc - PO 2.5 mg DAILY [facility] Administration Docusate Sodium 100 mg 05/29/19 10:00 06/06/19 09:53 Colace - PO Not Given DAILY [facility] Dronabinol 5 mg 06/02/19 17:30 06/06/19 09:25 Marinol - PO Not Given BIDWM [facility] Fentanyl 1 patch 06/06/19 10:45 Duragesic 25mcg Patch - TD 06/13/19 10:34 Q72H [facility] Hydromorphone HCl 2 mg 06/05/19 08:17 06/06/19 10:11 Dilaudid - PO 2 mg Q4H PRN Administration PAIN LEVEL 6-10 IV Flush 10 ml 05/20/19 16:01 06/06/19 05:58 Johann-Cath Flush IVPUSH 10 ml PRN PRN Administration protocol Magnesium Chloride 64 mg 05/22/19 11:15 06/06/19 12:27 Slow-Mag - PO 64 mg DAILY [facility] Administration Magnesium Hydroxide 30 ml 05/31/19 11:00 Milk Of Magnesia - PO DAILY PRN CONSTIPATION Melatonin 5 mg 05/19/19 23:13 06/05/19 21:34 Melatonin PO 5 mg HS PRN Administration INSOMNIA Metoprolol Succinate 25 mg 05/18/19 20:30 06/06/19 09:54 Toprol Xl - PO 25 mg DAILY [facility] Administration Miscellaneous 1 each 06/06/19 10:34 Duragesic Patch Waste TD PRN PRN PAIN Ondansetron HCl 8 mg 06/05/19 12:40 Zofran Odt - SL Q6H PRN NAUSEA AND/OR VOMITING Pantoprazole Sodium 40 mg 05/18/19 22:00 06/06/19 09:56 Protonix - PO Not Given BID [facility] Prochlorperazine Edisylate 10 mg 06/02/19 18:18 Compazine Injection - IVPB Q8H PRN NAUSEA AND/OR VOMITING Senna 1 tab 05/31/19 11:00 06/06/19 09:56 Senna - PO Not Given BID [facility] Simethicone 80 mg 06/02/19 09:50 06/05/19 09:01 Mylicon - PO 80 mg QID PRN Administration GAS Sucralfate 1 gm 05/18/19 22:00 06/06/19 12:32 Carafate Oral Suspension - PO Not Given ACHS [facility] Tamoxifen Citrate 20 mg 06/03/19 16:00 06/06/19 12:27 Tamoxifen Citrate PO 20 mg DAILY [facility] Administration Impression 1. hyponatremia 2. htn 3. pancytopenia 4. breast cancer 5. hypokalemia 6. hypercalcemia 7. malnutrition Plan - sodium stable - encourage po intake - monitor calcium - will follow PRN - avoid dehydration
[2019-06-06] MEDS: ALPRAZolam 1 MG TABLET PO PRN (21:53)
[2019-06-07] MEDS: SUCRALFATE 1 GM/10 ML UNIT DOSE CUPS PO SCH (06:08)
[2019-06-07] MEDS: HYDROmorphone HCL 2 MG TABLET PO PRN (06:30)
[2019-06-07 07:59] LABS: BASO % 1.1 % (0-2.0); EOS % 2.6 % (0-4.5); HEMATOCRIT 27.6 % (32.4-45.2); HEMOGLOBIN 9.6 GM/dL (10.7-15.3); LYMPH % 19.6 % (8-40); MCH 28.8 pg (25.7-33.7); MCHC 34.8 g/dl (32.0-36.0); MEAN CELL VOLUME 82.9 fl (80-96); MEAN PLT VOLUME 7.6 fl (7.5-11.1); MONO % 12.3 % (3.8-10.2); NEUT % 64.4 % (42.8-82.8); PLATELET COUNT 131 K/MM3 (134-434); RBC 3.33 M/mm3 (3.60-5.2); RDW 17.7 % (11.6-15.6); WHITE BLOOD COUNT 4.8 K/mm3 (4.0-10.0)
[2019-06-07] MEDS: DRONABINOL 5 MG CAPSULE PO SCH (08:11)
[2019-06-07 08:56] VITALS: BP 126/69; TEMP 98.6
[2019-06-07] MEDS: metoPROLOL SUCCINATE 25 MG TAB.SR.24H (FP) PO SCH (09:46)
[2019-06-07] MEDS: SENNOSIDES 8.6MG TABLET (FP) PO SCH (09:46)
[2019-06-07] MEDS: amLODIPine BESYLATE 2.5 MG TABLET (FP) PO SCH (09:47)
[2019-06-07] MEDS: DOCUSATE SODIUM 100 MG CAPSULE (FP) PO SCH (09:47)
[2019-06-07] MEDS: PANTOPRAZOLE 40 MG TABLET PO SCH (09:47)
[2019-06-07] MEDS: SIMETHICONE 80 MG TAB.CHEW (FP) PO PRN (09:47)
[2019-06-07] MEDS: TAMOXIFEN CITRATE 10 MG TABLET PO SCH (09:51)
[2019-06-07] MEDS: MAGNESIUM CL 64 MG TABLET.SA PO SCH (09:51)
[2019-06-07 10:10] VITALS: PULSE 84
[2019-06-07 10:49] LABS: PLATELET ESTIMATE DECREASED
== END 2019-06-07 11:12 | disposition home or self-care (01) | DRG 542 ==
LOC: J7W 05-18 18:54
PROVIDERS: ADMIT Internal Medicine Hematology & Oncology; ATTEND Internal Medicine Hematology & Oncology
PROC: 009U3ZZ Drainage of Spinal Canal, Percutaneous Approach (ICD-10-PCS; principal; 2019-05-24)
PROC: B01BZZZ Fluoroscopy of Spinal Cord (ICD-10-PCS; 2019-05-24)
DX: C79.51 Secondary malignant neoplasm of bone (principal); G03.8 Meningitis due to other specified causes; E43 Unspecified severe protein-calorie malnutrition; C78.7 Secondary malignant neoplasm of liver and intrahepatic bile duct; C79.49 Secondary malignant neoplasm of other parts of nervous system; E87.1 Hypo-osmolality and hyponatremia; D61.818 Other pancytopenia; C50.912 Malignant neoplasm of unspecified site of left female breast; E83.52 Hypercalcemia; R62.7 Adult failure to thrive; Z68.20 Body mass index [BMI] 20.0-20.9, adult; I10 Essential (primary) hypertension; K21.9 Gastro-esophageal reflux disease without esophagitis; F41.9 Anxiety disorder, unspecified; R94.5 Abnormal results of liver function studies; E87.6 Hypokalemia; E83.42 Hypomagnesemia; G89.3 Neoplasm related pain (acute) (chronic); R11.10 Vomiting, unspecified; R63.0 Anorexia; D64.9 Anemia, unspecified
CPT/HCPCS: 36415; 36430; 36511; 62272; 70552-TC; 74220-TC-FY; 74230-TC-FY; 76705-TC; 77002-TC-FY; 80048; 80053; 82945; 82962; 83735; 84100; 84157; 85025; 85610; 85730; 86850; 86900; 86901; 86922; 87070; 87205; 88108; 92611-GN; 93005; 93010; 97116-GP; 97161-GP; A9579; C1887; J3489; J7030; P9038; P9058; Q0162